=== PATIENT | female | born 1970 | race Caucasian/White ===

== ENCOUNTER 2023-04-22 11:00 | Outpatient (OUT) | payer MEDICARE, SELFPAY ==
[2023-04-22 12:15] LABS: Free T4 0.73 ng/dL (0.76-1.46)
[2023-04-22 12:17] LABS: Free T3 2.01 pg/mL (2.18-3.98); Thyroid Stimulating Hormone 0.702 uIU/mL (0.358-3.740)
== END 2023-04-22 11:01 ==
LOC: LAB 11:06
PROVIDERS: PCP Family Medicine
DX: E03.9 Hypothyroidism, unspecified (principal)
CPT/HCPCS: 36415; 84439; 84443; 84481

== ENCOUNTER 2023-09-09 13:43 | Outpatient (OUT) | payer MEDICARE, SELFPAY ==
--- NOTE | 2023-09-09 | MM_ITS ---
Patient: THEODORE LION Exam Date: 09/09/2023 : 1970 Gender:F Ordering : DR TU FLORES Admission #: [id number] Family : Non-Staff Physician Order #: [id number] CLICK HERE TO VIEW EXAM RADIOLOGY REPORT PROCEDURE: MM TOMOSYNTHESIS SCREENING BI COMPARISON: MG MAMM SCREEN 3D [place] CAD, 08/17/2021. MG MAMM SCREEN [place] W CAD, 08/16/2020. MG MAMM [place] SCRN W CAD DIG, 10/13/2007. MG MAMM SCREEN 3D [place] CAD, 08/20/2022. INDICATIONS: Screening Calculator Name NCI Breast Cancer Risk Assessment Tool 5 Year Breast Cancer Risk 0.70% Lifetime Breast Cancer Risk 5.90% Personal Breast Cancer No Personal Ovarian Cancer No Treatments None Family Cancers Son with hodgkins cancer at age 14; Father with throat cancer at age 72. LOCATION: [facility] BREAST COMPOSITION: Heterogeneously dense,which may obscure small masses. FINDINGS: DIAGNOSTIC CATEGORY 1--NEGATIVE. RIGHT BREAST: No significant suspicious finding. This exam includes additional mammographic views for implant evaluation and shows no visible implant abnormality. No significant change has occurred. LEFT BREAST: No significant suspicious finding. This exam includes additional mammographic views for implant evaluation and shows no visible implant abnormality. No significant change has occurred. RECOMMENDATIONS: ROUTINE MAMMOGRAM AND CLINICAL EVALUATION IN 12 MONTHS. PLEASE NOTE: A NORMAL MAMMOGRAM DOES NOT EXCLUDE THE POSSIBILITY OF BREAST CANCER. A CLINICALLY SUSPICIOUS PALPABLE LUMP SHOULD BE BIOPSIED. Dictated by: Jean Pierre Kirk M.D. on 09/11/2023 at 13:32 Approved by: Jean Pierre Kirk M.D. on 09/11/2023 at 13:36
== END 2023-09-09 13:44 | disposition home or self-care (01) ==
LOC: MAMMO 13:44
PROVIDERS: Visit Provider Specialist
DX: Z12.31 Encounter for screening mammogram for malignant neoplasm of breast (principal); Z80.7 Family history of other malignant neoplasms of lymphoid, hematopoietic and related tissues; Z80.8 Family history of malignant neoplasm of other organs or systems
CPT/HCPCS: 77063; 77067

== ENCOUNTER 2023-09-10 14:53 | Outpatient (OUT) | payer MEDICARE, SELFPAY ==
[2023-09-10 16:02] LABS: Free T4 0.89 ng/dL (0.76-1.46)
[2023-09-10 16:05] LABS: Thyroid Stimulating Hormone 0.502 uIU/mL (0.358-3.740)
== END 2023-09-10 14:54 | disposition home or self-care (01) ==
LOC: LAB 14:54
DX: E03.9 Hypothyroidism, unspecified (principal)
CPT/HCPCS: 36415; 84439; 84443; 84481

== ENCOUNTER 2024-09-11 13:36 | Outpatient (OUT) | payer OTHER, SELFPAY ==
--- NOTE | 2024-09-11 13:50 | MM_ITS ---
Patient Name: THEODORE LION MR#: [id number] : 1970 Exam Date: 09/11/2024 Ordering Doctor: DR TU FLORES RADIOLOGY REPORT PROCEDURE: MM TOMOSYNTHESIS SCREENING BI COMPARISON: MM TOMOSYNTHESIS SCREENING BI, 09/09/2023. MG MAMM SCREEN 3D [place] CAD, 08/20/2022. MG MAMM SCREEN 3D [place] CAD, 08/17/2021. MG MAMM [place] SCRN W CAD DIG, 10/13/2007. INDICATIONS: Screening Calculator Name NCI Breast Cancer Risk Assessment Tool 5 Year Breast Cancer Risk 0.70% Lifetime Breast Cancer Risk 5.80% Personal Breast Cancer No Personal Ovarian Cancer No Treatments None Family Cancers Son with hodgkins cancer at age 14; Father with throat cancer at age 72. LOCATION: [facility] BREAST COMPOSITION: The breasts are heterogeneously dense,which may obscure small masses. FINDINGS: DIAGNOSTIC CATEGORY 1--NEGATIVE. RIGHT BREAST: No significant suspicious finding. This exam includes additional mammographic views for implant evaluation and shows no visible implant abnormality. No significant change has occurred. LEFT BREAST: No significant suspicious finding. This exam includes additional mammographic views for implant evaluation and shows no visible implant abnormality. No significant change has occurred. RECOMMENDATIONS: ROUTINE MAMMOGRAM AND CLINICAL EVALUATION IN 12 MONTHS. PLEASE NOTE: A NORMAL MAMMOGRAM DOES NOT EXCLUDE THE POSSIBILITY OF BREAST CANCER. A CLINICALLY SUSPICIOUS PALPABLE LUMP SHOULD BE BIOPSIED. Dictated by: Jean Pierre Kirk M.D. on 09/13/2024 at 19:58 Approved by: Jean Pierre Kirk M.D. on 09/13/2024 at 20:00
== END 2024-09-11 13:37 | disposition home or self-care (01) ==
LOC: MAMMO 13:45
PROVIDERS: PCP Family Medicine; Visit Provider Specialist
DX: Z12.31 Encounter for screening mammogram for malignant neoplasm of breast (principal); Z80.7 Family history of other malignant neoplasms of lymphoid, hematopoietic and related tissues; Z80.8 Family history of malignant neoplasm of other organs or systems
CPT/HCPCS: 77063; 77067

== ENCOUNTER 2025-09-13 13:58 | Outpatient (OUT) | payer OTHER, SELFPAY ==
--- OUTSIDE RECORDS SUMMARY | 2022-10-26 10:10 | XMS_ITS | Continuity of Care Document ---
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 Name Role Phone Osei Mercedes DO Unavailable Unavailable Allergies, Adverse Reactions, Alerts Substance Reaction Status Criticality Penicillins Active No Information Medications Medication Instructions Dosage Effective Dates (start - stop) Status Comments gabapentin 100 mg capsule take 1 capsule by oral route 2 times every day 100 MG - Active ketorolac 60 mg/2 mL intramuscular solution inject 1 milliliter by intramuscular route every 6 hours as needed - Active Imitrex 100 mg tablet take 1 tablet by o ral route after onset of migraine; may repeat after 2 hours if headache returns,not to exceed 200mg in 24hrs 100 MG - Active Cytomel 5 mcg tablet take 1 tablet by or al route every day 5 MCG - Active Repatha Syringe 140 mg/mL subcutaneous syringe inject 1 milliliter by subcutaneous route every 2 weeks in the abdomen, thigh, or outer area of upper arm (rotate sites) 140 MG - Active Xywav 0.5 gram/mL oral solution take (9G) by oral route 2 times every day at bedtime and 2.5-4 hrs later while in bed - Active Zetia 10 mg tablet take 1 tablet by ora l route every day 10 MG - Active Synthroid 50 mcg tablet take 1 tablet by oral route every day 50 MCG - Active Estratest 1.5mg/2.5mg ORAL take 1.5 milligram by oral route every day - Active DDAVP 0.1 mg tablet take 1 tablet by ora l route 3 times every day 0.1 MG - Active Procedures Procedure Date OFFICE/OUTPATIENT VISIT, EST OFFICE/OUTPATIENT VISIT, EST OFFICE/OUTPATIENT VISIT, EST IMMUNIZATION ADMIN TDAP VACCINE >7 IM OFFICE/OUTPATIENT VISIT, EST No Charge OFFICE/OUTPATIENT VISIT, EST OFFICE/OUTPATIENT VISIT, EST OFFICE/OUTPATIENT VISIT, EST OFFICE/OUTPATIENT VISIT, EST OFFICE/OUTPATIENT VISIT, EST OFFICE/OUTPATIENT VISIT, EST OFFICE/OUTPATIENT VISIT, EST Covid Testing [facility] Oral Hygiene Instruction Comp Oral Eval New/estab Patient 2017 Oral Hygiene Instruction Advance Directives Directive Yes / No Effective Date File Name No Information Encounters Encounter Description Practice Location Reason(s) For Visit Diagnoses Date Provider Providers Copied on Encounter [facility], [address] [place] [address], [id number] , tel:[phone] [facility] No Information 2 Plank DO Osei. [address] [place] [address], [id number], [place]. tel:[phone] OFFICE/OUTPA TIENT VISIT, [facility], [address] [place] [address], [id number] , tel:[phone] [facility] F/U R Foot (chief complaint) Body mass index [BMI] 28.0-28.9, adultAcute pain of right footNeuropathy 2 Plank DO Osei. [address] [place] [address], [id number], [place]. tel:[phone] OFFICE/OUTPA TIENT VISIT, [facility], [address] [place] [address], [id number] , [place] tel:[phone] [facility] Problem Visit (chief complaint) Acute pain of right footBody mass index [BMI] 28.0-28.9, adult 2 Plank DO Osei. [address], [place], [id number], [place]. tel:[phone] OFFICE/OUTPA TIENT VISIT, [facility], [address], [place], [id number] , [place] tel:[phone] [facility] Medication refill (chief complaint) Body mass index [BMI] 28.0-28.9, adultChronic GERD 2 Plank DO Osei. [address], [place], [id number], [place]. tel:[phone] OFFICE/OUTPA TIENT VISIT, [facility], [address] [place] [address], [id number] , [place] tel:[phone] [facility] est care (chief complaint)t etanus shot (chief complaint) NeuropathyBody mass index [BMI] 29.0-29.9, adult 2 Plank DO Osei. [address], [place], [id number], [place]. tel:[phone] [facility], [address] [place] [address], [id number] , [place] tel:[phone] [facility] est care (chief complaint) Body mass index [BMI]30.0-30.9, adult 2 Kip Ponce. [address] [place], [address], [place]. tel:[phone] OFFICE/OUTPA TIENT VISIT, [facility], [address], [place], [id number] , [place] tel:[phone] [facility] Med Refills (chief complaint) Body mass index [BMI] 28.0-28.9, adultAddison disease 1 Pavlock DO Max. [address], [place], [id number], [place]. tel:[phone] OFFICE/OUTPA TIENT VISIT, [facility], [address] [place] [address], [id number] , [place] tel: [phone] [facility] med refill (chief complaint) Rajendra diseaseMuscle spasmBody mass index [BMI] 28.0-28.9, adult 1 Pavlock DO Max. [address], [place], [id number], [place]. tel:[phone] OFFICE/OUTPA TIENT VISIT, [facility], [address], [place], [id number] , [place] tel: [phone] [facility] Med F/U (chief complaint) Rajendra diseaseLow back pain associated with a spinal disorder other than radiculopathy or spinal stenosisBody mass index [BMI] 29.0-29.9, adult 0 Pavlock DO Max. [address] [place] [address], [id number], [place]. tel:[phone] OFFICE/OUTPA TIENT VISIT, [facility], [address], [place], [id number] , [place] tel: [phone] [facility] Med F/U (chief complaint) Body mass index [BMI] 29.0-29.9, adultNeuropathy Norton diseaseColitis Sep- 0 Pavlock DO Max. [address], [place], [id number], [place]. tel:[phone] OFFICE/OUTPA TIENT VISIT, [facility], [address], [place], [id number] , [place] tel: [phone] [facility] Med F/U (chief complaint) Body mass index [BMI] 29.0-29.9, adultNeuropathy Aug- 0 Pavlock DO Max. [address] [place] [address], [id number], [place]. tel:[phone] OFFICE/OUTPA TIENT VISIT, [facility], [address] [place] [address], [id number] , [place] tel: [phone] [facility] Med Refills (chief complaint) Body mass index (BMI) 28.0-28.9, adultAddison diseaseNeuropat hy Jul-0 0 Pavlock DO Max. [address], [place], [id number], [place]. tel:[phone] OFFICE/OUTPA TIENT VISIT, EST [facility], [address], [place], [id number] , [place] tel: [phone] [facility] annual exam (chief complaint)N europathy (chief complaint) Body mass index (BMI) 26.0-26.9, adultNeuropathy Hypothyroidism, unspecified type 0 Pavlock DO Max. [address], [place], [id number], [place]. tel:[phone] [facility], [address], [place], [id number] , [place] tel: [phone] COVID [facility] Encounter for screening for other viral diseases 0 Visci DO Bravo. [address], [place], [id number], [place]. tel:[phone] [facility], [address], [place], [id number] , [place] tel:[phone] [facility] Chronic hypotension 0 Pavlock DO Max. [address], [place], [id number], [place]. tel:[phone] [facility], [address], [place], [id number] , [place] tel:[phone] [facility] f/u colitis (chief complaint) Body mass index (BMI) 27.0-27.9, adultColitisAdd artemio disease Apr-3 0-201 9 Pavlock DO Max. [address], [place], [id number], [place]. tel:[phone] [facility], [address], [place], [id number] , [place] tel:[phone] [facility] est care (chief complaint) Post hysterectomy menopauseAcquir ed absence of both cervix and uterusChronic hypotensionHypo thyroidism, unspecified typeMigraine aura without headacheAddison diseaseBody mass index (BMI) 27.0-27.9, adultLow back pain associated with a spinal disorder other than radiculopathy or spinal stenosis 9 [facility] [place]. [address], [place], [id number], [place]. tel:[phone] [facility], [address], [place], [id number] , [place] tel:[phone] Dental Clinic Encounter for screening for dental disorders 8 Kevin Kleinasosbaldoochdennise . [address] [place] [address], [id number], [place]. tel:[phone] Family History Family Member Type Diagnosis Age At Onset Sister Problem (finding) Allergies Sister Problem (finding) migraine Mother Problem (finding) Obesity Father Problem (finding) osteoarthritis Father Problem (finding) hypertension Mother Problem (finding) Irritable bowel syndrom e Sister Problem (finding) Irritable bowel syndrom e Sister Problem (finding) Alive and well Mother Problem (finding) osteoarthritis Mother Problem (finding) Diabetes mellitus Mother Problem (finding) Allergies Sister Problem (finding) hypercholesterolemia Father Problem (finding) alcoholism Mother Problem (finding) hypercholesterolemia Father Problem (finding) Cardiovascular disease Mother Problem (finding) stroke Brother Problem (finding) Allergies Mother Problem (finding) Alive and well Brother Problem (finding) Irritable bowel syndrom e Brother Problem (finding) asthma Immunizations Vaccine Date Status Comments Tdap (Boostrix) administered Source: New Immunization Record Payers Payer name Insurance type Covered constitution party ID Authoriza tion(s) [place] [employer] Ad[employer]age MAN[employer] [id number] [place] [employer] [id number] Social History Type Description Quantity Date Captured Comments Alcohol Use Details Unknown Caffeine Use Details Unknown Tobacco Use Status No Information Smoking Status No Information Sex Female Sexual Orientation Straight or heterosexual Nov Gender Identity Female Chief Complaint And Reason For Visit No Information Reason For Referral Reason For Referral No Information Plan Of Treatment Date Type Action Status Goal PRAPARE ASSESSMENT. Due on D due Goal Depression screening. Due on due Goal Influenza vaccine. Due on De due Goal Lipid panel. Due on due Goal Colonoscopy. Due on due Goal Zoster vaccine (). Due on due Goal FOBT. Due on due Goal Tdap due Goal Mammogram. Due on due Goal Zoster vaccine (). Due on due Goal Lipid panel. Due on due Goal Colonoscopy. Due on due Goal Influenza vaccine. Due on Oc due Goal Tdap due Goal Mammogram. Due on due Goal FOBT. Due on due Goal PRAPARE ASSESSMENT. Due on O due Goal Depression screening. Due on due Goal Dietary management education , guidance, and counseling completed Goal Mammogram. Due on due Goal PRAPARE ASSESSMENT. Due on O due Goal Colonoscopy. Due on due Goal FOBT. Due on due Goal Influenza vaccine. Due on Oc due Goal Lipid panel. Due on due Goal Zoster vaccine (1st). Due on due Goal Depression screening. Due on due Goal Tdap due Goal Lifestyle education regardin g diet completed Goal Depression screening. Due on due Goal Tdap. Due on due Goal Influenza vaccine. Due on Ap due Goal PRAPARE ASSESSMENT. Due on A due Goal Lipid panel. Due on due Goal Influenza vaccine. Due on Au due Goal Lipid panel. Due on due Goal Zoster vaccine (). Due on due Goal Colonoscopy. Due on due Goal PRAPARE ASSESSMENT. Due on A due Goal Mammogram. Due on due Goal Tdap due Goal FOBT. Due on due Goal Depression screening. Due on due Goal Dietary management education , guidance, and counseling completed Goal Weight-reducing diet educati on completed Goal Weight-reducing diet educati on completed Goal Dietary management education , guidance, and counseling completed Goal Dietary management education , guidance, and counseling completed Goal Dietary management education , guidance, and counseling completed Goal Dietary management education , guidance, and counseling completed Goal Dietary management education , guidance, and counseling completed Goal Dietary management education , guidance, and counseling completed Goal Dietary management education , guidance, and counseling completed Goal Dietary management education , guidance, and counseling completed Goal Dietary management education , guidance, and counseling completed Referral Ordered: Podiatry (related to Acute pain of right foot) [id number] Ordered: Podiatry (related to Acute pain of right foot) [id number] Ordered: Referrals: Podiatry. Evaluate and treat [id number] Ordered: X-Ray Exam Of Foot Complete Minimum Of 3 Views ordered History Of Present Illness Encounter Date Complaint History Of Prese nt Illness F/U R Foot Pt here to f/u a bout R foot; had X-rays. States still having pain, can't bend foot at all. Been taking IBU and Tylenol for the pain. Resting the foot is only thing that alleviates the pain. No other issues/concerns at this time. //C Whiteriver, RNpain no better. rather excruciating pain w/ hyperflexion.also discomfort 2nd and third metatarsal ray r foot. xray is unremarkable. tp Problem Visit Right foot, feel s like she hyper-extended ankle. Hit from side by recliner. About 5 days ago, says bruise is healing. States pain is getting worse. //Roseann Muro Medication refill Presents for r efill for omeprazole. States she gets refills on her other medications from her specialist. Qian Stafford RN est care Patient presents to establish care. Was a Pavlock patient. Needs refills on lyrica. Yousif Florentino RN tetanus shot Patient states s he was working on something recently and the person she was working with was told to get a tetanus shot today. Patient Would like tetanus shot today.Yousif Florentino RN est care Patient presents for med refills and 6 month check up. States toradol and lyrica need refilled.Yousif Corneliusent was originally scheduled to see Dr Mercedes to establish care. Dr Mercedes is off today and patient moved to this providers schedule. Upon arrival, patient was notified that she was not seeing Dr Mercedes; she was surprised as she had contacted her insurance to see that he would be covered. In to talk to patient about medication. Previously seen by provider who no longer works here. Today patient is specifically requesting refills on medication regimen including lyrica for her neuropathy and fibromyalgia; and taking toradol injections for migraines as previously prescribed by Dr Mayfield. Noted that she is also on tizanidine 4mg QID and Vistaril 25mg TID PRN. Discussed potentially changing some of her medications around to get her off the injectable toradol and controlled substance lyrica. Suggested other medications to assist with pain relief. Patient became very upset, asking why would changes be made that seems to be working for her. Suggested referral to pain management who could assume care of pain control. States she did that in the past and is not interested in going back to them; that it did not help her. Explained to patient that how previous provider practiced is not how this provider practices and she desires to establish care with Dr Mercedes; as that is who she thought she was seeing today. Apologized to her for the inconvenience. Appt made with Dr Mercedes per request. Spoke to supervisor rod placing; states co-pay applied today can be moved to appt next week; patient is not to be billed for this appt. Stefan, SHOE COVERER Med Refills Pt here today fo r medication refillOARRS completed, TGrodi LPNPt states she is getting back to her normal she is not as bad as she was but not all the way back yet and has appointment with neurology coming up med refill Patient states t hat she has had increased nausea and migraines. Pt states that Fibromyalgia has been flaring up recently. Pt states that she needs medication refills. No other complaints. Kavon RNPT states that she has been having a lot of muscle cramping, that comes and goes, pt states she has not had anything this bad in along time and we she had her labs checked her endocrine states that they we were good but she is not sure what all was checked and that was 4 months ago. Med F/U Pt here today fo r a medication follow up. Pt states she wants to stay at this dose. Pt states she doesnt want to increase cause she doesnt want to get too tired. OARRS completed, last filled Xyrem from Dr. 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 Pt states the medication is helping but not sure she tells a difference between the 75mg dose and the 50mg dose. Pt states she has been having issues with anxiety lately so she cant really tell if its helping or notOARRS completed, [facility] [place] [facility] & Adipex from Dr. Ela Garcia 09/01, Lyrica 08/23 & Estratest 07/28 from Ela Garcia. TGrodi LPNPt states she is having a lot of symptoms right now because the stress has got her adneral problems out of control some, Pt has been not doing well for the past 2 days, she is hoping that it is only a short term thing because she has been so stable for the last 2 years Med F/U Pt here today fo r medication follow up. Pt states the dose is working and she is tolerating the medication but states she thinks the medication needs increased. OARRS completed, last filled Lyrica 07/26 & Estratest 07/28 from Ela GarciaTGelvis LAWN SERVICE WORKER Pt states doing well not having any new problems ,above was reviewed and agreed with [facility] Med Refills Pt here today fo r medication refills. Pt states she felt the Gabapentin made her headaches worse, pt states she has been on the Lyrica in the past and that helped her. OARRS completed, last filled Gabapentin 06/30TGrodi LPNPt states that she was doing well with this on the prednisone but as having side effects now looking for something different and her rash is itchy that she can not get control of right now Neuropathy Onset was gradua l. Severity level is mild. Location of numbness is bilateral arm. The problem occurs intermittently. Gait is characterized as normal. No aggravating factors. There are no relieving factors. Associated symptoms include headache, paresthesia and tingling. Pertinent negatives include agitation, ataxia, bladder incontinence, bowel dysfunction, chorea, confusion, dysarthria, dysphagia, falling, fever, hallucinations, tremors and vertigo. annual exam Pt here today fo r annual exam. Pt states she just needs medication refills. Pt states her dermatitis recommends her to be on Gabapentin for brachialis pruritus. Pt wants to talk about that. No other issues or concernsTGelvis DUQUE f/u colitis Pt here today to follow up on her colitis. Pt states it is still aggravating her. She said it did improve for a little bit while on antibiotics, but now she is back to where she was originally. 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 No other issues/concerns. OARRS competed, last filled Estratest 12/[address] Ela Garcia. TGrodi LPNpt states she feels like she just needs a little more antibiotics est care pt here today to establish care and medication refills. Pt was previous pt of Dr. Mayfield in his [place] office. Pt just filled medication today of estrogen. Pt does not have anything specific today to see him, just here to see him and get established here. Pt wants lab work done. Pt states she gets IM Phenergan & Toradol and wants a prescription for syringes for these since a prescription is now required. OARRS completed, last filled estrogen 09/12 for 90 days from in [facility] & Percocet 5 08/19 from [facility] states she is doing better than she has done in a long time Functional Status Date Functional Assessmen t No Information Instructions Date Instruction Additional Infor al Giving encouragement to exercise Related to Body mass index [BMI] 28.0-28.9, adult Dietary management e ducation, guidance, and counseling Related to Body mass index [BMI] 28.0-28.9, adult Giving encouragement to exercise Related to Body mass index [BMI] 28.0-28.9, adult Lifestyle education regarding di et Related to Body mass index [BMI] 28.0-28.9, adult Dietary management e ducation, guidance, and counseling Related to Body mass index [BMI] 28.0-28.9, adult Giving encouragement to exercise Related to Body mass index [BMI] 28.0-28.9, adult Giving encouragement to exercise Related to Body mass index [BMI] 29.0-29.9, adult Weight-reducing diet education R elated to Body mass index [BMI] 29.0-29.9, adult Weight-reducing diet education R elated to Body mass index [BMI] 30.0-30.9, adult Giving encouragement to exercise Related to Body mass index [BMI] 30.0-30.9, adult Giving encouragement to exercise Related to Body mass index [BMI] 28.0-28.9, adult Dietary management e ducation, guidance, and counseling Related to Body mass index [BMI] 28.0-28.9, adult Giving encouragement to exercise Related to Body mass index [BMI] 28.0-28.9, adult Dietary management e ducation, guidance, and counseling Related to Body mass index [BMI] 28.0-28.9, adult Dietary management e ducation, guidance, and counseling Related to Body mass index [BMI] 29.0-29.9, adult Giving encouragement to exercise Related to Body mass index [BMI] 29.0-29.9, adult Dietary management e ducation, guidance, and counseling Related to Body mass index [BMI] 29.0-29.9, adult Giving encouragement to exercise Related to Body mass index [BMI] 29.0-29.9, adult Dietary management e ducation, guidance, and counseling Related to Body mass index [BMI] 29.0-29.9, adult Giving encouragement to exercise Related to Body mass index [BMI] 29.0-29.9, adult Dietary management e ducation, guidance, and counseling Related to Body mass index (BMI) 28.0-28.9, adult Giving encouragement to exercise Related to Body mass index (BMI) 28.0-28.9, adult Dietary management e ducation, guidance, and counseling Related to Body mass index (BMI) 26.0-26.9, adult Giving encouragement to exercise Related to Body mass index (BMI) 26.0-26.9, adult Giving encouragement to exercise Related to Body mass index (BMI) 27.0-27.9, adult Dietary management e ducation, guidance, and counseling Related to Body mass index (BMI) 27.0-27.9, adult Giving encouragement to exercise Related to Body mass index (BMI) 27.0-27.9, adult Dietary management e ducation, guidance, and counseling Related to Body mass index (BMI) 27.0-27.9, adult Assessments Type Assessment Date No Information Patient Care Teams Name Effective Dates (start - stop) Status Members No Information
--- OUTSIDE RECORDS SUMMARY | 2025-08-30 14:40 | XMS_ITS | Encounter Summary ---
Author Organization [facility] tem Address [id number] [address] [place] [address] Care Team Providers Care Toy Stuffer Name Role Phone Alondra Patel ALLIANCE CONSULTANT-ORCHESTRA DIRECTOR Primary Care Provider Reason for Visit * ReasonCommentsFollow-up Encounter Details DateTypeDepartmentCare Team (Latest Contact Info)Ifinmxnkead86/13/2025 2:40 PM EDTTelemedicine [facility] [address] [place] [address] [place] [address] Faith Villavicencio, ALLIANCE CONSULTANT-ORCHESTRA DIRECTOR [address] [facility] B, [facility] [place] [address] Fibromyalgia (Primary Dx); Trigeminal neuralgia Social History Tobacco UseTypesPacks/DayYears UsedDateSmoking Tobacco: FtlrxdRvewnzjwaf264 02/02/1979 - 02/02/1995Alcohol UseStandard Drinks/WeekCommentsNo0 (1 standard drink = 0.6 oz pure alcohol)PHQ-2AnswerDate RecordedTotal Czanl698 ChildcareAnswerDate VzyezdwiXtdworaurOdzksgd57/12/2019EmploymentAnswerDate YxtmhrimLsotpacaowIppdkls92/12/2019Hunger ScreeningAnswerDate RecordedWithin the past 12 months we worried whether our food would run out before we got money to buy more.Never True08/30/2025Within the past 12 months the food we bought just didn't last and we didn't have money to get more.Never True08/30/2025Purpose - LifeAnswerDate RecordedPurpose and direction in emloGglataq80/11/2021 CommentsNoSex and Gender InformationValueDate RecordedSex Assigned at BirthNot on fileLegal JxrMlmiob62/06/2015 12:00 PM EDTGender IdentityNot on fileSexual OrientationNot on filedocumented as of this encounter Patient Instructions * Attachments The following attachments cannot be sent through Care Everywhere. * Fibromyalgia (Mongolian) documented in this encounter Progress Notes * Faith Villavicencio, ALLIANCE CONSULTANT-ORCHESTRA DIRECTOR - 08/30/2025 2:40 PM EDT Video Visit via Real-time Synchronous Audiovisual Provider Location: [facility] [address] [place] [phone] Patient Location: Patient's home Video Visit Consent Statement: I discussed risks, benefits, and alternatives of a real-time synchronous audiovisual consultation with the patient (and any accompanying persons) including the risks that the patient's personal health details and medical records will be discussed over real-time, synchronous, interactive video/audio/telecommunication technology, the visit will not be recorded withoutthe express consent of both the provider and the patient, and that there are some limitations compared to nztz-am-rxfy evaluations. The patient consented to the presence of additional virtual and/or in-person participants. We elected to proceed. Subjective Patient ID: Pao Medina is a 55 y.o. female. CC: follow up fibromyalgia Follow-up Associated symptoms include joint swelling, myalgias and weakness. Pao presents through video visit for 3 month follow up for Lyrica use. She relates has been on and off this for 25 years. She also takes xywav. States has used both of these for many many years and has never had an interaction. States the Lyrica works wonders for her fibromyalgia. Otherwise would have constant joint pain; is controlled with Lyrica. Relates she will probably get the flu vaccineat her local pharmacy. Also has yearly mammograms done at [facility]. Is due this month. Order was placed in May. States it is not scheduled as of this time. The following portions of the patient's history were reviewed and updated as appropriate: allergies, current medications, past family history, past medical history, past social history, past surgicalhistory, problem list, and medication reconciliation was completed including current medication andpost discharge medication. Review of Systems Constitutional: Negative. HENT: Negative. Eyes: Negative. Respiratory: Negative. Cardiovascular: Negative. Gastrointestinal: Negative. Musculoskeletal: Positive for joint swelling and myalgias. Skin: Negative. Neurological: Positive for weakness. Hematological: Negative. Psychiatric/Behavioral: Negative. Objective Physical Exam Constitutional: Appearance: Normal appearance. HENT: Head: Normocephalic and atraumatic. Pulmonary: Effort: Pulmonary effort is normal. Musculoskeletal: Cervical back: Normal range of motion. Neurological: Mental Status: She is alert and oriented to person, place, and time. Psychiatric: Behavior: Behavior normal. Assessment/Plan Lyrica refilled for 3 month supply OARRS reviewed, no abnormal behavior Instructed to complete mammogram, will copy Previous mamm order,and fax to [facility] Follow up in 3 months for controlled substance Klaudiakory Cedeno was seen today for follow-up. Diagnoses and all orders for this visit: Fibromyalgia - pregabalin (LYRICA) 50 mg capsule; Take 2 capsules (100 mg total) by mouth 3 (three) times a day. Trigeminal neuralgia - pregabalin (LYRICA) 50 mg capsule; Take 2 capsules (100 mg total) by mouth 3 (three) times a day. LACY Mcginnis 08/30/25 1528 documented in this encounter Plan of Treatment DateTypeDepartmentCare Team (Latest Contact Info)Hjhgwgvbsng09/07/2026 10:40 AM ESTTelemedicine [facility] [address] [place] [phone] Alondra Patel APRN-CNP [address] [place] [phone] documented as of this encounter Visit Diagnoses Diagnosis Fibromyalgia- Primary Unspecified myalgia and myositis Trigeminal neuralgia documented in this encounter Additional Health Concerns AssessmentNoted TimePHQ-9 Depression Total Score: 010/ 2:34 PM EDT documented as of this encounter Care Teams Team MemberRelationshipSpecialtyStart DateEnd Date Alondra Patel APRN-LAURI [address] [place] [address], [place] [phone] PCP - GeneralNurse Kmxxzdoehddr03/22/24documented as of this encounter
--- OUTSIDE RECORDS SUMMARY | 2025-09-13 14:01 | XMS_ITS | Clinical Summary ---
Author Organization [facility] Address [address] [place] [address] Care Team Providers Care Dumbwaiter Operator Name Role Phone David Mayfield MD Primary Care Provider [phone] Allergies Active AllergyReactionsCriticalityNoted DateCommentsAzithromycinRash-MildLow 02/02/2017ClarithromycinGI XkndpkydLgg09/20/4184MqkymjfhduZjmvjTuc21/20/2017 Severe abdominal pain RnpqatpmkzjaYhers28/26/2011 Had 4+ edema in legs and arms the day after taking a new prescription. Meperidine (Pf)Nausea And Ldsqvwju43/18/2017Midazolam HclNausea And Vomiting 05/31/2010MorphineNausea And BnamoinuSys05/02/2017NaproxenGI Uiozjumc71/18/2011 PenicillinsHives,Rash-DjvkDzh6202/02/2017Sutures [Other]Hives,Itching,Rash-Mild, SchywBthu90/12/2013 Specifically, cat gut sutures Received name: Sutures VancomycinGI Mlannbzy20/21/2016 Medications MedicationSigDispense QuantityRefillsLast FilledStart DateEnd DateStatus levothyroxine (SYNTHROID) 50 mcg tablet Take 1 tablet by mouth once daily, 30 min prior to meal.07/24/2017Active hydrocortisone (CORTEF) 20 mg tablet Take 20 mg by mouth two times daily. 20 mg in the AM 10 mg in the PMActive esterified estrogens-methyltestosterone 1.25-2.5 mg tablet Take 1 tablet by mouth once daily.Active tiZANidine (ZANAFLEX) 4 mg tablet Take 4 mg by mouth as needed.Active SUMAtriptan (IMITREX) 100 mg tablet Take 100 mg by mouth at onset of migraine.Active Active Problems ProblemNoted DateDiagnosed DateSecondary adrenal ddlijexvmmahv54/24/2018 Family History Medical HistoryRelationNameCommentsAsthmaBrotherAsthmaDaughterCancerFatherHeart diseaseFatherhypertensionAsthmaMotherDiabetesMotherStrokeMotherAsthmaSonCancer SonRelationNameStatusCommentsBrotherDeceasedDaughterAliveFatherDeceasedMother AliveSisterAliveSonAlive Social History Tobacco UseTypesPacks/DayYears UsedDateSmoking Tobacco: JsalrbHudvagjosa1598294 - 1994Smokeless Tobacco: NeverAlcohol UseStandard Drinks/WeekCommentsNo0 (1 standard drink = 0.6 oz pure alcohol)CommentsUnknownSex and Gender InformationValueDate RecordedSex Assigned at BirthNot on fileLegal SexFemale 04/08/2018 4:04 PM EDTGender IdentityNot on fileSexual OrientationNot on file Last Filed Vital Signs Vital SignReadingTime TakenCommentsBlood Xbgragdk256/7007 8:12 AM EDT Plnqz938006/11/2018 8:12 AM DKUHjpmepmqwux86.4 ??C (97.5 ??F)06/11/2018 8:12 AM EDTRespiratory Oywv2273 8:12 AM EDTOxygen Bzdpcehhcq84%06/11/2018 8:12 AM EDTInhaled Oxygen Concentration--Zdastu52.5 kg (140 lb)06/11/2018 8:12 AM EDT Ggstug301.5 cm (5' 2 )06/11/2018 8:12 AM EDTBody Mass Index25.61006/11/2018 8:12 AM EDT Plan of Treatment Health MaintenanceDue DateLast DoneCommentsCologuard (average risk only) 1970 5016Iaadvjksmzn1972Colorectal Cancer Rdvcycthb1972FIT (average risk only)1972Hepatitis C Lflfwdacl1972Alternating Mammogram/MRI 1984DTaP,Tdap,and Td Vaccines (1 - Tdap)1991Hepatitis B Vaccine ages 19 years and older (1 of 3 - 19+ 3-dose series)1991Breast Cancer Blnibcvbm81/31/7621Yqlngjxse93/31/1992Cervical Cancer Screening: Cytology 1993Pneumococcal Vaccines 50years + (1 of 1 - PCV)2022Zoster Recombinant Vaccines (1 of 2)2022OVID-19 Vaccine (1 - 2024- season) 2025Influenza Vaccine (#1)2025Respiratory Syncytial Virus (RSV) or ages 60 years and older (1 - 1-dose 75+ series)2047 Respiratory Syncytial Virus (RSV) ages 0 thru 19 monthsAged OutNo longer eligible based on patient's age to complete this topic Insurance Care Teams Team MemberRelationshipSpecialtyStart DateEnd Date David Mayfield MD [address] [place] [phone] PCP - GeneralFamily Medicine06/09/18
--- OUTSIDE RECORDS SUMMARY | 2025-09-13 14:01 | XMS_ITS | Clinical Summary ---
Author Organization [facility] Address [address] [place] [address] Phone Care Team Providers Care Storage Brine Worker Name Role Phone Rodger Ortiz DO Primary Care Provider [phone] Social History Tobacco UseTypesPacks/DayYears UsedDateSmoking Tobacco: Never Assessed CommentsUnknownSex and Gender InformationValueDate RecordedSex Assigned at Not on fileLegal VckDmzdlr84/26/2022 3:11 PM ESTGender IdentityNot on fileSexual OrientationNot on file Plan of Treatment Health MaintenanceDue DateLast DoneCommentsCT Rntbpapojqki1972Colonoscopy 1972Colorectal Cancer Uwgqqsfbz1972FIT-DNA (Cologuard)1972FIT 1972HIV Qlxrllawa1972Lipid Panel1972 5767Tepfoyipmigaq1972 Welcome to Medicare Visit1972MMR Vaccines (1 of 1 - Standard series) 1973Hepatitis C Pwljauraa36/31/1990Hepatitis B Vaccines (1 of 3 - 19+ 3- dose series)1991Cervical Cancer Bbrmkmpym90/31/1993HPV/Jfwpko1804/17/1993Pap Smear1993DTaP/Tdap/Td Vaccines (1 - Tdap)04/17/19940030Cpqrpksvo04/31/2012 Pneumococcal Vaccine (1 of 1 - PCV)2022Zoster Vaccines (1 of 2)2022 Influenza Vaccine (#1)5COVID-19 Vaccine (1 - 2024- season)2025 HIB VaccinesAged OutNo longer eligible based on patient's age to complete this topicHPV VaccinesAged OutNo longer eligible based on patient's age to complete this topicHepatitis A VaccinesAged OutNo longer eligible based on patient's age to complete this topicIPV VaccinesAged OutNo longer eligible based on patient's age to complete this topicMeningococcal VaccineAged OutNo longer eligible based on patient's age to complete this topicRotavirus VaccinesAged OutNo longer eligible based on patient's age to complete this topic Insurance Care Teams Team MemberRelationshipSpecialtyStart DateEnd Date Rodger Ortiz DO [facility]05/05/15
--- OUTSIDE RECORDS SUMMARY | 2025-09-13 14:02 | XMS_ITS | Clinical Summary ---
Author Organization L[employer] tem Address [id number] [address] [place] [address] Care Team Providers Care Generator Mechanic Name Role Phone PatelKeshia garglynn GOODMAN-ALLOCATION ANALYST Primary Care Provider Allergies Active AllergyReactionsCriticalityNoted DateCommentsDuloxetineSwellingLow 02/04/2017 Severe abdominal pain JbgnjwkyxhneUuibcyta89/18/2017 Had 4+ edema in legs and arms the day after taking a new prescription. Meperidine (Pf)Cttcrsmh69/18/2017Midazolam GjfGnxzvshn75/18/2017MorphineVomiting 02/02/20172157SsmjscwfTzqdErq00/18/2017OtherHives,Itching,Rash,SwellingHigh 02/02/2017 Specifically, cat gut sutures PenicillinsHives,BiafFcr6202/02/20178608Dyrrcjo-Hpl-Nhw Reductase InhibitorsHeadache 10/09/2024VancomycinGI Ucdfivseodt49/18/2017 Medications MedicationSigDispense QuantityRefillsLast FilledStart DateEnd DateStatus estrogens-methylTESTOSTERone (EEMT,COVARYX) 1.25-2.5 mg per tablet Indications:vasomotor symptoms associated with menopauseTake 1 tablet by mouth in the morning. Indications: change of life signs.Active SUMAtriptan (IMITREX) 100 mg tablet Take 1 tablet (100 mg total) by mouth as needed for migraine (may repeat x1 as one hr). May repeat in 2 hours if unresolved. Do not exceed 200 mg in 24 hours. Active levothyroxine (SYNTHROID, LEVOTHROID) 50 MCG tablet Take 1 tablet (50 mcg total) by mouth in the morning.Active evolocumab (REPATHA SYRINGE) 140 mg/mL syringe Inject 140 mg under the skin every 14 (fourteen) days.Active ezetimibe (ZETIA) 10 mg tablet Take 1 tablet (10 mg total) by mouth in the morning.Active carBAMazepine XR (TEGretol XR) 200 mg 12 hr tablet Take 2 tablets (400 mg total) by mouth in the morning and 2 tablets (400 mg total) at noon and 2 tablets (400 mg total) before bedtime.Active clotrimazole-betamethasone (LOTRISONE) cream Apply 1 Application topically as needed.08/15/2024ctive dexAMETHasone (DECADRON) 4 mg tablet Take 1 tablet (4 mg total) by mouth in the morning and 1 tablet (4 mg total) at noon and 1 tablet (4 mg total) in the evening. Take with meals.08/13/2024ctive dexAMETHasone (DECADRON) 4 mg/mL injection 1 mL (4 mg total) every 6 (six) hours.11/20/2023ctive ketorolac (TORADOL) 60 mg/2 mL solution Inject 2 mL (60 mg total) into the appropriate muscle once.04/06/2024ctive lisdexamfetamine (VYVANSE) 70 mg capsule Take 1 capsule (70 mg total) by mouth in the morning.07/09/2024ctive XYWAV 0.5 gram/mL solution Take 4.5 mL by mouth nightly. 4.5 grams at bedtime repeat In 9trpap0510/05/2024 Active liothyronine (CYTOMEL) 5 MCG tablet Take 1 tablet (5 mcg total) by mouth in the morning and 1 tablet (5 mcg total) at noon.Active eletriptan (RELPAX) 40 mg tablet Indications:Migraine with aura and without status migrainosus, not intractable Take 1 tablet (40 mg total) by mouth once as needed for migraine. May repeat in 2 hours if unresolved. Do not exceed 80 mg in 24 hours. 9 tablet ctive naltrexone 1.5 mg capsule Take 2 mg by mouth in the morning.Active carBAMazepine (CARBATROL) 200 mg 12 hr capsule Take 1 capsule (200 mg total) by mouth 2 (two) times a day as needed.Active lczdaujlhsvbiaq-lcbzcwxdp-BK 2-30-10 mg/5 mL syrup Take 5 mL by mouth 4 (four) times a day as needed for allergies, congestion or cough. 120 mL 5Active hydroxychloroquine (PLAQUENIL) 200 mg tablet Take 1 tablet (200 mg total) by mouth in the morning.5Active tiZANidine (ZANAFLEX) 4 mg capsule Indications:FibromyalgiaTake 1 capsule (4 mg total) by mouth 2 (two) times a day as needed for muscle spasms. 60 capsule 5Active ketorolac (TORADOL) 10 mg tablet Indications:FibromyalgiaTake 1 tablet (10 mg total) by mouth every 6 (six) hours as needed for pain. 20 tablet 5Active omeprazole (PriLOSEC) 40 mg capsule Take 1 capsule (40 mg total) by mouth every morning before breakfast. 30 capsule 505Active ondansetron (ZOFRAN) 8 mg tablet Indications:Nausea and vomiting, unspecified vomiting type,Migraine with aura and without status migrainosus, not intractableTake 1 tablet (8 mg total) by mouth every 8 (eight) hours as needed for nausea or vomiting. 20 tablet 5Active promethazine (PHENERGAN) 25 mg tablet Indications:Nausea and vomiting, unspecified vomiting type,Migraine with aura and without status migrainosus, not intractableTake 0.5 tablets (12.5 mg total) by mouth every 8 (eight) hours as needed for nausea or vomiting. Oral or injectable 30 tablet 5Active baclofen (LIORESAL) 10 mg tablet Indications:Fibromyalgia,Small fiber neuropathy,Muscle spasmTAKE 1 TABLET BY MOUTH 3 TIMES A DAY 90 tablet 5Active pregabalin (LYRICA) 50 mg capsule Indications:Fibromyalgia,Trigeminal neuralgiaTake 2 capsules (100 mg total) by mouth 3 (three) times a day. 540 capsule 5Active desmopressin (DDAVP) 0.1 mg tablet Take 2 tablets (200 mcg total) by mouth in the morning and 2 tablets (200 mcg total) before bedtime./02/2025Expired tacrolimus (PROTOPIC) 0.1 % ointment Apply 1 Application topically in the morning and 1 Application before bedtime. /08/2025Expired pregabalin (LYRICA) 50 mg capsule Indications:Fibromyalgia,Trigeminal neuralgiaTAKE 2 CAPSULES BY MOUTH 3 TIMES A DAY 540 capsule Discontinued(Reorder) Active Problems ProblemNoted DateDiagnosed DateSmall fiber mivwhwbpsm02/27/2025Migraine with aura and without status migrainosus, not hjypozkknne39/28/2024iverticulitis 10/15/2024Trigeminal kfaprthxs75/28/4872Qiianynwkhbp87/28/2024Muscle spasm 10/15/2024Supraventricular dbatleorbrc88/22/2024Migraine without aura and without status migrainosus, not dwnwytznclj12/22/2024hronic kyegjkjb33/20/[address] scan, colon02/04/2017Generalized abdominal pain02/03/2017Colitis 02/02/2017Primary adrenocortical baftundptxrka15/18/7026Dtnzewhigriuqg87/18/2017 Encounters DateTypeDepartmentCare YsfsLvvplboxylw03/15/2025Telephone [facility] [address] [place] [phone] Joan Bellamy CMA 08/30/2025 2:40 PM EDTTelemedicine [facility] [address] [place], [place] [phone] Faith Villavicencio APRN-CNP Fibromyalgia (Primary Dx); Trigeminal pkbnyhfsj64/13/0581Cbwpho88/21/2025Telephone [facility] [address] [place] [phone] Martha Main, EDGAR Med Anljukrkjb60/18/2025[facility] [address] [place] [phone] Alondra Patel APRN-CNP Fibromyalgia; Small fiber neuropathy; Muscle spasm07/29/2025Refill [facility] [address] [place] [phone] Alondra Patel APRN-CNP Fibromyalgia; Trigeminal umvtttmkl92/22/2025Results Follow-Up [facility] [address] [place] [phone] Nolvia Butler CNA Ultrasound abdomen qvsymlyj70/22/2025Results Follow-Up [facility] [address] [place] [phone] low dose lung screening (Annual)07/06/2025Orders [facility] [address] [place] [phone] Alondra Patel APRN-LAURI Lung nodules (Primary Dx)07/02/2025 3:00 PM EDT - 07/02/2025 11:59 PM EDT Hospital Encounter [facility] - Ultrasound [address] [place] [address] Generalized abdominal pain; Nausea and vomiting, unspecified vomiting type; Right upper quadrant pain Discharge Disposition: Home07/01/2025 2:20 PM EDTTelemedicine [facility] [address] [place] [phone] Alondra Patel APRN-LAURI Generalized abdominal pain (Primary Dx); Nausea and vomiting, unspecified vomiting type; Right upper quadrant pain; Migraine with aura and without status migrainosus, not kfqsfbwdmae76/14/2025 Yyuflg2306/29/2025[facility] [address] [place] [phone] Alondra Patel APRN-LAURI Lung nodule (Primary Dx)06/24/2025 3:30 PM EDT - 06/24/2025 11:59 PM EDTHospital Encounter [facility] - CT Imaging [address] [place] [phone] Former smoker; Encounter for screening for malignant neoplasm of lung in former smoker who quit in past 15 years with 20 pack year history or greater Discharge Disposition: Home06/24/20252029Zhwfqw34/05/2025Orders Only [facility] [address] [place] [address] Nolvia Butler CNA Liver lesion; Non-alcoholic fatty liver vibnrsn3306/22/2025Orders Only [facility] [address] [place] [address] [place] [address] Ref Prov, Not In System from Last 3 Months Immunizations No known immunizations Family History Medical HistoryRelationNameCommentsAsthmaBrotherDepressionBrotherDrug abuse BrotherEarly deathBrotherdrug overdoseIrritable bowel syndromeBrotherMental illnessBrotherAsthmaDaughterAlcohol abuseFatherArthritisFatherCOPDFather DiverticulitisFatherHearing lossFatherHeart diseaseFatherHeart failureFather HypertensionFatherThroat cancerFatherStrokeMaternal AuntArthritisMaternal GrandfatherAlzheimer's diseaseMaternal GrandmotherDiabetesMaternal Grandmother StrokeMaternal GrandmotherDiabetesMaternal UncleDiabetes type IIMaternal Uncle Heart attackMaternal UncleHeart diseaseMaternal UncleStrokeMaternal Uncle DepressionMotherDiabetesMotherHyperlipidemiaMotherIrritable bowel syndromeMother StrokeMothertraumatic brain injury after car accidentTransient ischemic attack MotherArthritisPaternal GrandfatherRheum arthritisPaternal GrandmotherVision lossPaternal GrandmotherAnesthesia problemsSisterDiverticulitisSisterHearing lossSisterHyperlipidemiaSisterAsthmaSonHodgkin's lymphomaSonRelationNameStatus CommentsBrotherDeceasedDaughterFatherMaternal AuntMaternal GrandfatherMaternal GrandmotherMaternal UncleMotherPaternal GrandfatherPaternal GrandmotherSisterSon Social History Tobacco UseTypesPacks/DayYears UsedDateSmoking Tobacco: YyiihbEkytxvturi160 02/02/1979 - 02/02/1995 Tobacco Cessation:Counseling Given: Not Answered Alcohol UseStandard Drinks/WeekCommentsNo0 (1 standard drink = 0.6 oz pure alcohol)PHQ-2AnswerDate RecordedTotal Puayu291/13/2025ChildcareAnswerDate FtibocouXbalcvufaSuwjvhp62/12/2019EmploymentAnswerDate RecordedEmploymentUnknown 04/29/2019Hunger ScreeningAnswerDate RecordedWithin the past 12 months we worried whether our food would run out before we got money to buy more.Never True08/30/2025Within the past 12 months the food we bought just didn't last and we didn't have money to get more.Never True08/30/2025Purpose - LifeAnswerDate RecordedPurpose and direction in tzndRtubtnf82/11/2021CommentsNoSex and Gender InformationValueDate RecordedSex Assigned at BirthNot on fileLegal Sex Vhecjo4606/23/2015 12:00 PM EDTGender IdentityNot on fileSexual OrientationNot on file Last Filed Vital Signs Vital SignReadingTime TakenCommentsBlood Txnnlnez463/6207 4:16 PM EDT Pswjy660505/19/2025 4:16 PM JTTRtnvomozqkd90.3 ??C (97.4 ??F)05/19/2025 4:16 PM EDTRespiratory Uole725002/04/2017 5:44 PM EDTOxygen Uxvjswkrjz20%05/19/2025 4:16 PM EDTInhaled Oxygen Concentration--Wxkjsd90.3 kg (141 lb 12.8 oz)05/19/2025 4:16 PM EHVNaeqss515.9 cm (5' 0.98 )05/19/2025 4:16 PM EDTBody Mass Index26.81 05/19/2025 4:16 PM EDT Plan of Treatment DateTypeDepartmentCare Team (Latest Contact Info)Gchsndjqhnz49/07/2026 10:40 AM ESTTelemedicine [facility] [address] [place] [phone] Alondra Patel APRN-LAURI [address] [place] [address], [place] [phone] Health MaintenanceDue DateLast DoneCommentsAdult BMI Follow Up Plan1990 COVID-19 Vaccine ( season)5011/23/2022, 07/19/2021, 02/16/2021, Additional history existsInfluenza Nxxbqow21/, 11/23/2022, 10/05/2009dult BMI Adgurlemn87/12/2024Tobacco Screening /Depression Xsfeqackb01DTaP,Tdap and Td Vaccines (2 - Td or Tdap)/Zoster (Shingles) VaccineCompleted 11/23/2022, 06/12/2022 Medical Devices Not on file Procedures Procedure NamePriorityDate/TimeAssociated DiagnosisCommentsUS ABDOMEN COMPLETE Trsetqh1807/02/2025 3:30 PM EDT Generalized abdominal pain Nausea and vomiting, unspecified vomiting type Right upper quadrant pain CT LOW DOSE LUNG ZCFURCYDOHnhaedt95/07/2025 3:59 PM EDT Former smoker Encounter for screening for malignant neoplasm of lung in former smoker who quit in past 15 years with 20 pack year history or greater from Last 3 Months Results * Ultrasound abdomen complete (07/02/2025 3:30 PM EDT)Anatomical Region LateralityModalityBody, AbdomenUltrasoundSpecimen (Source)Anatomical Location / LateralityCollection Method / VolumeCollection TimeReceived Time07/06/2025 7:26 AM EDT Narrative 07/06/2025 7:27 AM EDT US ABDOMEN COMPLETE Clinical history:Generalized abdominal pain; Nausea and vomiting, unspecified vomiting type; Right upper quadrant pain Comparison: None. Findings: Real-time sonographic evaluation the abdomen performed. Visualized portions of the pancreas appear unremarkable. The liver is unremarkable in echotexture and appearance. Gallbladder is unremarkable. No pericholecystic fluid, gallbladder wall thickening or cholelithiasis. No biliary dilatation. Common bile duct measures 0.3 cm. Main portal vein is patent with hepatopedal flow. Main portal vein velocity 24.4 cm/s. Right kidney measures 10.6 cm. Left kidney measures 10.1 cm. No renal collecting system dilatation,abnormal calcification or renal parenchymal distorting mass. Spleen is normal size and echotexture measuring 10.2 cm. Aorta and IVC the level of the upper abdomen are unremarkable. Impression: Unremarkable sonographic evaluation of the abdomen. Finalized by Jaquan Hernandez MD on 07/06/2025 7:27 AM Procedure Note Jaquan Hernandez MD - 07/06/2025 US ABDOMEN COMPLETE Clinical history:Generalized abdominal pain; Nausea and vomiting,unspecified vomiting type; Right upper quadrant pain Comparison: None. Findings: Real-time sonographic evaluation the abdomen performed. Visualized portions of the pancreas appear unremarkable. The liver is unremarkable in echotexture and appearance. Gallbladder is unremarkable. No pericholecystic fluid, gallbladder wall thickening or cholelithiasis. No biliary dilatation. Common bile ductmeasures 0.3 cm. Main portal vein is patent with hepatopedal flow. Mainportal vein velocity 24.4 cm/s. Right kidney measures 10.6 cm. Left kidney measures 10.1 cm. No renalcollecting system dilatation, abnormal calcification or renal parenchymaldistorting mass. Spleen is normal size and echotexture measuring 10.2 cm. Aorta and IVC the level of the upper abdomen are unremarkable. Impression: Unremarkable sonographic evaluation of the abdomen. Finalized by Jaquan Hernandez MD on 07/06/2025 7:27 AM Authorizing ProviderResult TypeResult StatusAlexandra Jorge STILL OPERATOR HELPER-CNPIMG US ORDERABLESFinal Result * CT low dose lung screening (Annual) (06/24/2025 3:59 PM EDT)Anatomical Region LateralityModalityBody, Lung, Chest, Body CoveraComputed TomographySpecimen (Source)Anatomical Location / LateralityCollection Method / VolumeCollection TimeReceived Time06/28/2025 4:02 PM EDT Addenda Addendum by Bryant Torres MD on 07/06/2025 6:52 PM EDT *ADDENDUM*Addendum: Reported 32 pack year history of smoking. Finalized by Bryant Torres MD on 07/06/2025 6:52 PM Narrative 06/28/2025 4:04 PM EDT CLINICAL INFORMATION: Screening visit: Personal history of tobacco use/history of nicotine dependence. Lung cancer screening. ?? The patient has a 16 pack-year history of smoking. The patient is a prior smoker. COMPARISON: No relevant prior studies are available. TECHNIQUE: Low dose CT chest performed without contrast with coronal and sagittal and maximum intensity projection reconstructed images. Maximum intensity projection images generated to increase the sensitivityof pulmonary nodule detection. Automated exposure control was utilized. All CT scans at this facility use dose modulation, iterative reconstruction, and/or weight based dosing when appropriate to reduce radiation dose to as low as reasonably achievable. Computer aided detection for pulmonary nodules was performed utilizing CQuotient software. FINDINGS: Diagnostic quality: Satisfactory Lung nodules: There are small peripheral right lung nodular densities, largest measuring 3-4 mm posterior right lower lobe, axial image #85. Short-term follow- up recommended to confirm stability. Lungs and pleural spaces: No focal infiltrate or consolidation. No pleural effusion. Heart and mediastinum:No mediastinal lymphadenopathy. Heart size: Normal Coronary calcification: None Pericardial effusion: None Other findings: Limited images of upper abdomen show cholelithiasis. Hyperattenuating material noted within the colon which appears to represent contrast. Please correlate with previous imaging. Osseous structures appear intact. IMPRESSION: Small right lung nodular densities, largest measuring 3 to 4 mm. In absence of previousexams, short-term follow-up would be recommended to confirm stability, CT in 4-6 months. Lung Rads Category: 3- Probably benign Recommendation: CT Low Dose Lung Screening 6 month follow up Finalized by Bryant Torres MD on 06/28/2025 4:04 PM Procedure Note Bryant Torres MD - 06/28/2025 CLINICAL INFORMATION: Screening visit: Personal history of tobacco use/history of nicotinedependence. Lung cancer screening. The patient has a 16 pack-year history of smoking. The patient is a prior smoker. COMPARISON: No relevant prior studies are available. TECHNIQUE: Low dose CT chest performed without contrast with coronal and sagittal and maximum intensity projection reconstructed images. Maximum intensityprojection images generated to increase the sensitivity of pulmonarynodule detection. Automated exposure control was utilized. All CT scans at this facility use dose modulation, iterativereconstruction, and/or weight based dosing when appropriate to reduceradiation dose to as low as reasonably achievable. Computer aideddetection for pulmonary nodules was performed utilizing MyOtherDrive. FINDINGS: Diagnostic quality: Satisfactory Lung nodules: There are small peripheral right lung nodular densities,largest measuring 3-4 mm posterior right lower lobe, axial image #85.Short-term follow- up recommended to confirm stability. Lungs and pleural spaces: No focal infiltrate or consolidation. No pleural effusion. Heart and mediastinum:No mediastinal lymphadenopathy. Heart size: Normal Coronary calcification: None Pericardial effusion: None Other findings: Limited images of upper abdomen show cholelithiasis. Hyperattenuating material noted within the colon which appears torepresent contrast. Please correlate with previous imaging. Osseousstructures appear intact. IMPRESSION: Small right lung nodular densities, largest measuring 3 to 4mm. In absence of previous exams, short-term follow-up would berecommended to confirm stability, CT in 4-6 months. Lung Rads Category: 3- Probably benign Recommendation: CT Low Dose Lung Screening 6 month follow up Finalized by Bryant Torres MD on 06/28/2025 4:04 PM Authorizing ProviderResult TypeResult StatusAlexalynn HOUSEIMG CT ORDERABLESEdited Result - Final from Last 3 Months Insurance Advance Directives * Full Code (Latest Code Status on File) Date ActivatedDate InactivatedComments02/02/2017 3:46 PM02/04/2017 9:38 PM Care Teams Team MemberRelationshipSpecialtyStart DateEnd Date Alondra Patel APRN-CNP [address] [place], [place] [address], [place] [address] PCP - GeneralNurse Tkbqjebafezd89/22/24
--- OUTSIDE RECORDS SUMMARY | 2025-09-13 14:02 | XMS_ITS | Clinical Summary ---
Author Organization [facility] Address [address] [facility], [address] [place] [address] Care Team Providers Care [place] Protection Maintainer Name Role Phone David Mayfield DO Primary Care Provider Unavaila ble Allergies Active AllergyReactionsCriticalityNoted DateCommentsMorphineNausea And Vomiting Low07/20/20174343Maevgqwgbaa88/04/0346Vfxtgpqryn92/02/2017 Medications MedicationSigDispense QuantityRefillsLast FilledStart DateEnd DateStatus topiramate (TOPAMAX) 100 MG tablet Take 100 mg by mouth 2 times daily.Active hydrocortisone (CORTEF) 20 MG tablet Take 20 mg by mouth 2 times daily.Active naratriptan (AMERGE) 2.5 MG tablet Take 2.5 mg by mouth once as needed for Migraine. 2.5 mg at onset of headache, may repeat in 4 hours if neededActive pravastatin (PRAVACHOL) 20 MG tablet Take 20 mg by mouth daily.Active tiZANidine (ZANAFLEX) 4 MG tablet Take 4 mg by mouth every 6 hours as needed (prn for sleep)Active ondansetron (ZOFRAN) 8 MG tablet Take 8 mg by mouth every 8 hours as needed for Nausea or Vomiting.Active carBAMazepine (TEGRETOL-XR) 100 MG SR tablet Take 400 mg by mouth daily as neededActive diazepam (VALIUM) 5 MG tablet 10 mg 2 times daily as needed for Szqle630ctive metoclopramide (REGLAN) 10 MG tablet ctive SAVELLA 12.5 MG TABS ctive montelukast (SINGULAIR) 10 MG tablet 06/27/2015ctive promethazine (PHENERGAN) 25 MG tablet ctive sucralfate (CARAFATE) 1 GM tablet ctive zolpidem (AMBIEN CR) 12.5 MG CR tablet ctive traMADol (ULTRAM) 50 MG tablet Take 50 mg by mouth every 6 hours as needed for PainActive ondansetron (ZOFRAN ODT) 4 MG disintegrating tablet Take 1 tablet by mouth every 8 hours as needed for Nausea 20 tablet 01/26/2017Active cephALEXin (KEFLEX) 500 MG capsule Take 500 mg by mouth 4 times dailyActive ciprofloxacin-dexamethasone (CIPRODEX) 0.3-0.1 % otic suspension Place 4 drops into the left ear 2 times dailyActive hydrOXYzine (VISTARIL) 25 MG capsule Take 25 mg by mouth 3 times daily as needed for ItchingActive baclofen (LIORESAL) 10 MG tablet Take 10 mg by mouth every 4 hours as needed (pain)Active levothyroxine (SYNTHROID) 50 MCG tablet Take 1 tablet by mouth Daily 30 tablet 07/24/2017Active metoprolol tartrate (LOPRESSOR) 25 MG tablet Take 1 tablet by mouth 2 times daily 60 tablet Active Active Problems ProblemNoted DateDiagnosed DateDDD (degenerative disc disease), uzbanq5809/03/2017 Lumbosacral spondylosis without pqzpoeqhvt06/17/2017Lumbar radiculopathy 09/03/20170443Vxsnafndnar84/02/2017Cervical spondylosis without fdrduwvfne71/24/2015 Ydujfqymowaxdf32/11/2014drenal rkaiakjaztpkp40/11/5601Lqwcdmx43/11/2014 Generalized abdominal painIatrogenic thyrotoxicosis Social History Tobacco UseTypesPacks/DayYears UsedDateSmoking Tobacco: FormerSmokeless Tobacco: NeverAlcohol UseStandard Drinks/WeekCommentsNo0 (1 standard drink = 0.6 oz pure alcohol)CommentsUnknownSex and Gender InformationValueDate RecordedSex Assigned at BirthNot on fileLegal VyxTbjjax47/12/2013 11:07 PM ESTGender IdentityNot on fileSexual OrientationNot on file Last Filed Vital Signs Vital SignReadingTime TakenCommentsBlood Gfrhswsi451/7309 2:01 PM EDT Syxmi4918 2:01 PM JMICyfqpbbxsvt86.6 ??C (97.8 ??F)09/19/2018 2:06 PM EDTRespiratory Uvtl797507/24/2017 2:01 PM EDTOxygen Hzjdnnqsjb89%07/24/2017 2:01 PM EDTInhaled Oxygen Concentration--Ftaddo90.9 kg (132 lb)09/19/2018 2:06 PM EDT Arqqvq734.2 cm (5' 1.5 )09/19/2018 2:06 PM EDTBody Mass Index24.5409/19/2018 2:06 PM EDT Plan of Treatment Not on file Insurance Advance Directives * Full Code (Latest Code Status on File) Date ActivatedDate InactivatedComments07/20/2017 9:03 PM07/24/2017 8:15 PM Care Teams Team MemberRelationshipSpecialtyStart DateEnd Date David Mayfield DO [address] [place] [address] PCP - Generalmily Rrdqgqyv05/28/19
--- OUTSIDE RECORDS SUMMARY | 2025-09-13 14:02 | XMS_ITS | Encounter Summary ---
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 Care Provider Encounter Details DateTypeDepartmentCare Team (Latest Contact Info)Zoaosmgxrod32/13/2025Travel Social History Tobacco UseTypesPacks/DayYears UsedDateSmoking Tobacco: FnjytyRqsguabomf506 02/02/1979 - 02/02/1995Alcohol UseStandard Drinks/WeekCommentsNo0 (1 standard drink = 0.6 oz pure alcohol)PHQ-2AnswerDate RecordedTotal Qqmhw377 ChildcareAnswerDate RlyjplymOxuzxzpqcOuqjmtr28/12/2019EmploymentAnswerDate ZyshmdarHnmcssowmbCxxogqe79/12/2019Hunger ScreeningAnswerDate RecordedWithin the past 12 months we worried whether our food would run out before we got money to buy more.Never True08/30/2025Within the past 12 months the food we bought just didn't last and we didn't have money to get more.Never True08/30/2025Purpose - LifeAnswerDate RecordedPurpose and direction in hhvcLlaxerr13/11/2021 CommentsNoSex and Gender InformationValueDate RecordedSex Assigned at BirthNot on fileLegal CtjOegklq68/06/2015 12:00 PM EDTGender IdentityNot on fileSexual OrientationNot on filedocumented as of this encounter Plan of Treatment DateTypeDepartmentCare Team (Latest Contact Info)Tznbqapvdds77/07/2026 10:40 AM ESTTelemedicine [facility] [address] [place] [address] [phone] Alondra Patel APRN-CNP [address] [place] [address] [phone] documented as of this encounter Visit Diagnoses Not on filedocumented in this encounter Additional Health Concerns AssessmentNoted TimePHQ-9 Depression Total Score: 2:34 PM EDT documented as of this encounter Care Teams Team MemberRelationshipSpecialtyStart DateEnd Date Alondra Patel APRN-CNP [address] [place] [phone] PCP - GeneralNurse Tztygnrmscbp83/22/24documented as of this encounter
--- OUTSIDE RECORDS SUMMARY | 2025-09-13 14:02 | XMS_ITS | Clinical Summary ---
Author Organization [facility] Address [address] [place] [address] Care Team Providers Care Recreation Teacher Name Role Phone Alondra Patel LAURI Primary Care Provider Allergies Active AllergyReactionsCriticalityNoted DateCommentsAzithromycinOther,RashLow 04/06/20114618LvhzkxpjrixgveDxtaeGjcl80/08/2010 Other reaction(s): GI Disturbance PtlngpwbgeWphngpgwImj04/03/2011 Severe abdominal pain Severe abdominal pain Severe abdominal pain UkafkuzyzznsUxcnqkpz32/26/2011 Had 4+ edema in legs and arms the day after taking a new prescription. Had 4+ edema in legs and arms the day after taking a new prescription. Had 4+ edema in legs and arms the day after taking a new prescription. MhwgupuhztHfrew43/13/2022MidazolamNausea And Vomiting,Other,GI intolerance 05/31/2010MorphineNausea And Vomiting,GI tcxxfelbacpHuk43/14/2010NaproxenOther, AnpnErg5401/05/2011OtherHives,Itching,Rash,BmgrwgqxNyjn70/18/2017 Specifically, cat gut sutures PenicillinsHives,Rash,JsmeqdmIeb53/06/2004SuturesSwelling,Hives,Itching,RashHigh 10/29/2013 Specifically, cat gut sutures Received name: Sutures JdzpxxtayqPsber84/21/2016 Medications MedicationSigDispense QuantityRefillsLast FilledStart DateEnd DateStatus liothyronine (Cytomel) 5 mcg tablet Take 5 mcg by mouth in the morning. 2 tablets daily08/30/2022ctive estrogens-methyltestosterone (EEMT,Covaryx) 1.25-2.5 mg tablet Take 1 tablet by mouth in the morning.Active evolocumab (Repatha Diamond) 140 mg/mL pen injector INJECT 140 MG UNDER THE SKIN EVERY 2 WEEKS01/23/2021ctive ezetimibe (Zetia) 10 mg tablet Take 10 mg by mouth.02/19/2022ctive levothyroxine (Synthroid, Levoxyl) 50 mcg tablet Take 1 tablet by mouth in the morning.07/24/2017Active sodium,calcium,mag,pot oxybate (Xywav) 0.5 gram/mL solution every 12 (twelve) hours.09/21/2022ctive carBAMazepine XR (TEGretol XR) 200 mg 12 hr tablet Take 200 tablets by mouth if needed in the morning and at bedtime.Active dexAMETHasone (Decadron) 4 mg/mL injection INJECT 1 ML INTRAMUSCULARLY EVERY 6 HOURS NEEDED FOR ADRENAL STRESS. USE WHEN VOMITING OR DIARRHEA PREVENTS USE OF THE ORAL DOSE02/19/2022ctive ketorolac (Toradol) 60 mg/2 mL solution INJECT 2 ML INTRAMUSCULARLY EVERY 6 HOURS NEEDEDActive Vyvanse 50 mg capsule Take 70 mg by mouth in the morning.02/09/2023ctive SUMAtriptan (Imitrex) 100 mg tablet Take 100 mg by mouth.Active tiZANidine (Zanaflex) 4 mg tablet Take 4 mg by mouth.07/24/2016Active pregabalin (Lyrica) 100 mg capsule Take 100 mg by mouth in the morning and at bedtime.Active desmopressin (DDAVP) 0.1 mg tablet Indications:POTS (postural orthostatic tachycardia syndrome)Take 2 tablets (0.2 mg) by mouth three times daily. 540 tablet ctive eletriptan (Relpax) 40 mg tablet TAKE 1 TABLET BY MOUTH ONCE NEEDED FOR MIGRAINE. MAY REPEAT IN 2HRS IF UNRESOLVED. DO NOT EXCEED2 TABS/24 HRSActive Active Problems ProblemNoted DateDiagnosed YrssMmsbfxjebihdrv81/28/7544Vxgvhonmvdeb83/28/2024 Muscle spasm10/15/2024Migraine without aura and without status migrainosus, not tgvzdvcyyjh60/22/2024History of irqxbuhtvwenrd53/29/2024ight inguinal hernia 07/03/20244210Esmgwiqqgljp33/15/9730Yqxzbjaj79/15/2022Hearing hoowjrdjwd26/15/2022 Mqdvijseqswfn24/15/2022Trigeminal /15/2022 Overview (10/02/2022): Left Last Assessment & Plan: Assessment:able to bite upper lip, no decreased ROM Sleep apnea10/02/2022 Overview (10/02/2022): Last Assessment & Plan: Assessment: patient denies currently Coxtoskiym00/15/8735Myxmrxtott41/15/2022 Overview (10/02/2022): Mild Iatrogenic jicpjxbovjxads26/15/1819Sovryuoyujekkk27/13/2021 Assessment & Plan (01/31/2024 2:51 PM EDT): Stable continue zetia Supraventricular jiaoruyhzhh34/13/2019 Assessment & Plan (01/31/2024 2:50 PM EDT): Stable, states tachycardia is well controlled on DDAVP POTS (postural orthostatic tachycardia syndrome)06/30/2019 Overview (10/02/2022): Last Assessment & Plan: Assessment: recently diagnosed- follows with Dr. Chichi Huerta at [place] On DDVAP- currently stable Assessment & Plan (01/31/2024 2:54 PM EDT): Stable, continue DDAVP- will increase to 0.2 mg po tid for better POTS management Continue to adequately hydrate, and sodium intake Cholesteatoma, middle ear, left08/05/2018 Overview (10/02/2022): Added automatically from request for surgery [id number] Tinnitus, pzlplhfty45/27/2018Conductive hearing loss, ulysbyqto88/23/2018 Disorder of pituitary gland02/27/2018DDD (degenerative disc disease), lumbar 09/03/2017Lumbosacral spondylosis without wazswukqlx46/17/2017Lumbar habytplxdwbog55/17/2017 Overview (10/02/2022): lower, right moderate, left mild Qjkliqyfoul50/02/2017Abnormal CT scan, colon02/04/2017Chronic kccbuvpd09/20/2017 Generalized abdominal pain02/03/2017Addison's wauagvt0502/02/20170343Fxtjxfs02/18/2017 Chronic daily /10/2015Pain disorder associated with psychological and physical flyuwoz3609/27/2015Medication overuse whsorqqh35/10/2015Intractable chronic migraine without aura and without status /10/2015 Overview (10/02/2022): Last Assessment & Plan: Assessment: medications PRN Cervical spondylosis without gnaumpqxqa32/24/5888Xamzqvl90/11/2014Hypothyroidism 09/28/2014 Overview (10/02/2022): Last Assessment & Plan: Assessment: on thyroid medications Rotator cuff (capsule) qqgjld3608/12/2014drenal khxvckjsfrwja77/12/2013 Overview (10/02/2022): Last Assessment & Plan: Assessment: on daily hydrocortisone stable Chronic suppurative otitis media of both ears09/20/20116848Sxgjxwwjv51/14/2010 Hearing jrmaxfbklr71/10/2009 Family History Medical HistoryRelationNameCommentsAtrial fibrillationFatherHypertensionFather StrokeMotherRelationNameStatusCommentsFatherMother Social History Tobacco UseTypesPacks/DayYears UsedDateSmoking Tobacco: FormerCigarettes Smokeless Tobacco: Never Tobacco Cessation:Counseling Given: Not Answered Alcohol UseStandard Drinks/WeekCommentsNot Currently0 (1 standard drink = 0.6 oz pure alcohol)UT Safety & EnvironmentAnswerDate RecordedFear of Current or Ex-PartnerNot on file02/22/2024Emotionally AbusedNot on file01/09/2024hysically AbusedNot on file01/09/2024Sexually AbusedNot on file01/09/2024hysically or Sexually AbusedNot on file01/09/2024CommentsUnknownSex and Gender InformationValueDate RecordedSex Assigned at BirthNot on fileLegal SexFemale 05/16/2022 10:57 PM EDTGender IdentityNot on fileSexual OrientationNot on file Last Filed Vital Signs Vital SignReadingTime TakenCommentsBlood Mgvbjmvs359/7912/24/2024 11:01 AM EST Hucfn108812/24/2024 11:01 AM ESTTemperature--Respiratory Gzxj387701/31/2024 2:28 PM EDTOxygen Jxskkajvpn12%01/31/2024 2:28 PM EDTInhaled Oxygen Concentration-- Gyevzf08 kg (130 lb)12/24/2024 11:01 AM TUIAzajyu555.9 cm (5' 1 )12/24/2024 11:01 AM ESTBody Mass Index24.56012/24/2024 11:01 AM EST Plan of Treatment Health MaintenanceDue DateLast DoneCommentsCT Upuevmmijhwp1972Colonoscopy 1972FIT-DNA1972FOBT1972Medicare Annual Wellness (AWV) 1972 2167Selltnmkmkilw1972Depression Ijmnqbubi02/31/1984Hepatitis B Vaccines (1 of 3 - 19+ 3-dose series)1991Pap Smear1993Cervical Cancer Pecxcypff52/31/2002HPV/Aewblz0204/17/20024434Etdpflsyl42/31/2012Colorectal Cancer Cazywqofo90/31/9173CTV61/31/2734313COVID-19 Vaccine ( season)501/04/2023, 07/19/2021, 02/16/2021, Additional history exists Influenza Vaccine (#1)510/, 11/23/2022, 10/05/2009dult Tetanus Zoster KqqyzuwuBokxvgerj95/06/2023, 06/12/2022HIB Vaccines Aged OutNo longer eligible based on patient's age to complete this topicHPV VaccinesAged OutNo longer eligible based on patient's age to complete this topic IPV VaccinesAged OutNo longer eligible based on patient's age to complete this topicMeningococcal B VaccineAged OutNo longer eligible based on patient's age to complete this topicMeningococcal VaccineAged OutNo longer eligible based on patient's age to complete this topicPneumococcal Vaccine: Pediatrics (0 to 5 Years) and At-Risk Patients (6 to 64 Years)Aged OutNo longer eligible based on patient's age to complete this topicRotavirus VaccinesAged OutNo longer eligible based on patient's age to complete this topic Insurance Care Teams Team MemberRelationshipSpecialtyStart DateEnd Date Alondra Patel CNP [address] [place] [address] [address] [place] [address] PCP - GeneralFamily Medicine12/24/24
--- OUTSIDE RECORDS SUMMARY | 2025-09-13 14:02 | XMS_ITS | Clinical Summary ---
Author Organization [facility] Address [address] [place] [address] Care Team Providers Care Biomass Technician Name Role Phone David Dyson MD Primary Care Provider [phone] Allergies Active AllergyReactionsCriticalityNoted DateCommentsAzithromycinOther,RashLow 04/06/2011DuloxetineOther,ZbmsrnbtWgm17/03/2011 Severe abdominal pain Severe abdominal pain Severe abdominal pain Severe abdominal pain Duloxetine PukVtndh69/25/2023IndomethacinOther,Expjabmy26/26/2011 Had 4+ edema in legs and arms the day after taking a new prescription. Had 4+ edema in legs and arms the day after taking a new prescription. Had 4+ edema in legs and arms the day after taking a new prescription. Had 4+ edema in legs and arms the day after taking a new prescription. HguheXwjmPvm45/25/0387ApnbhfuvosjcTkbkr82/25/2023MeperidineNausea And Vomiting, Other,GI odfecbjiqch98/14/2010Meperidine Hcl06/11/2023MidazolamGI intolerance, Nausea And Vomiting,Unknown,Other05/31/2010MorphineGI intolerance,Nausea And KhxtjtgiCmb73/14/2010OtherOther,Itching,LcfhEqgh17/12/2013 Specifically, cat gut sutures Received name: Sutures PenicillinsHives,Other,Rash,UrugfkwPsi83/06/2004VancomycinOther,GI intolerance, Sknxdvf9312/08/2015 Medications MedicationSigDispense QuantityRefillsLast FilledStart DateEnd DateStatus tiZANidine (Zanaflex) 4 MG tablet Take 4 mg by mouth Daily as needed.Active SUMAtriptan (Imitrex) 100 MG tablet TAKE ONE TABLET BY MOUTH AFTER ONSET OF MIGRAINE, MAY REPEAT AFTER 2 HOURS IF HEADACHE RETURNS. DO NOT EXCEED 200MG IN 24 HOURS.Active promethazine (Phenergan) 25 MG tablet Take 25 mg by mouth every 6 (six) hours if needed.Active pregabalin (Lyrica) 100 MG capsule Take 100 mg by mouth in the morning and 100 mg in the evening.Active ondansetron (Zofran) 8 MG tablet Take by mouth every 8 (eight) hours if needed.Active omeprazole (PriLOSEC) [address] capsule PRNActive Vyvanse 40 MG capsule TAKE 1 CAPSULE BY MOUTH EVERY DAY FOR 30 DAYSActive liothyronine (Cytomel) 5 MCG tablet Take 5 mcg by mouth in the morning and 5 mcg before bedtime.Active levothyroxine (Synthroid, Levoxyl) 50 MCG tablet Take 1 tablet by mouth in the morning.12/24/2022ctive ketorolac (Toradol) 60 MG/2ML solution injection INJECT 2 ML INTRAMUSCULARLY EVERY 6 HOURS NEEDEDActive hydrocortisone (Cortef) 20 MG tablet Take 20 mg by mouth in the morning and 20 mg in the evening.Active ezetimibe (Zetia) 10 MG tablet Take 10 mg by mouth in the morning.03/22/2023ctive Repatha SureClick 140 MG/ML injection INJECT 140MG SUBCUTANEOUSLY EVERY TWO WEEKS03/22/2023ctive eletriptan (Relpax) 40 MG tablet Take 40 mg by mouth 1 (one) time if needed.Active desmopressin (DDAVP) 0.2 MG tablet Take 100 mcg by mouth in the morning and 100 mcg at noon and 100 mcg in the evening.03/25/2023ctive carBAMazepine XR (TEGretol XR) 200 MG 12 hr tablet Take 200 tablets by mouth 2 (two) times a day as needed.Active carBAMazepine (TEGretol) 200 MG tablet PRNActive Xywav 500 MG/ML solution 09/21/2022ctive ezetimibe (Zetia) 10 MG tablet ZetiaActive fluconazole (Diflucan) 150 MG tablet Indications:Vaginal dischargeTake 1 tablet every 3 days for 3 doses. 3 tablet 06/25/2025tive Est Estrogens-Methyltest (Estratest F.S.) 1.25-2.5 MG tablet Indications:Postmenopausal HRT (hormone replacement therapy)Take 1 tablet by mouth Daily 90 tablet 3105Active tacrolimus (Protopic) 0.1 % ointment Indications:Other atopic dermatitisApply topically 2 (two) times a day Apply to affected areas bid prn when flared 60 g 111Expired Est Estrogens-Methyltest (Estratest F.S.) 1.25-2.5 MG tablet Indications:Postmenopausal HRT (hormone replacement therapy)Take 1 tablet by mouth Daily 90 tablet Discontinued(Reorder) Active Problems No known active problems Encounters DateTypeDepartmentCare UhwpVghhvptzzzf27/08/2025Telephone [facility] [address] [place] [address] Leela Davison LPN Medication Questionfrom Last 3 Months Family History Medical HistoryRelationNameCommentsBipolar mhzqxsouMlhycsev0QeyykdahaUagqej CancerFatherHeart diseaseFatherHypertensionFatherAnemiaMotherDiabetesMother JztcmoszYbdbStryyoTabhflilTeikbyir8QcbwmvezPoohfyWnljyquxCjcflkEcnvg Social History Tobacco UseTypesPacks/DayYears UsedDateSmoking Tobacco: NeverSmokeless Tobacco: Never Tobacco Cessation:Counseling Given: Not Answered Alcohol UseStandard Drinks/WeekCommentsNever0 (1 standard drink = 0.6 oz pure alcohol)PHQ-2AnswerDate RecordedPatient Health Questionnaire-2 Pxedc47311/23/2023 CommentsNoSex and Gender InformationValueDate RecordedSex Assigned at BirthNot on fileLegal LekBfgsrg59/15/2023 6:39 PM EDTGender IdentityNot on file Sexual OrientationNot on file Last Filed Vital Signs Vital SignReadingTime TakenCommentsBlood Ztqmswit308/7009/23/2024 12:41 PM EST Pulse--Temperature--Respiratory Rate--Oxygen Saturation--Inhaled Oxygen Concentration--Cdytll84.3 kg (133 lb)09/23/2024 12:41 PM WEWZycbqd896.5 cm (5' 2 )02/13/2023 12:00 PM EDTBody Mass Index24.33002/13/2023 12:00 PM EDT Plan of Treatment DateTypeDepartmentCare Team (Latest Contact Info)Wwpvidhclow64/11/2025 1:45 PM ESTOffice Visit [facility] [address] [place] [phone] Tu Flores MD [address] [place] [address] Health MaintenanceDue DateLast DoneCommentsCT Hyaazypfxlkz1972Colonoscopy 1972FIT1972FOBT1972 0743Ildteutqvwhse1972Pap Smear1993 Cervical Cancer Qzhbhizqs64/31/2002HPV/Ixiozz3404/17/2002Influenza Vaccine (#1) 51, 11/23/20228602Razgegzsh83, 09/11/2023, 08/20/2022, Additional history existsColorectal Cancer Etfbohtbg29/31/2026 FIT-DNA6012/18/2022, 12/18/2022 Procedures Procedure NamePriorityDate/TimeAssociated DiagnosisCommentsMM TOMOSYNTHESIS SCREENING BI09/13/2024 8:00 PM EDT LAB COLOGUARD?? COLON CANCER FNONPDYkeubwa03/31/2023 from Last 3 Months or Most Recently Relevant to Health Maintenance Results * MM TOMOSYNTHESIS SCREENING BI (09/13/2024 8:00 PM EDT)Anatomical Region LateralityModalityOtherSpecimen (Source)Anatomical Location / Laterality Collection Method / VolumeCollection TimeReceived Time09/13/2024 8:00 PM EDT Narrative 09/13/2024 8:01 PM EDT [facility] ?[address] ? [place] [address] ? Mammography Report ? Signed ? Patient: Adam,Theodore L ?MR#: [id number] ?? : 1970 ?Acct:[id number] ?? Age/Sex: 54 / F ?ADM Date: 10/25/24 ?? Loc: MAMMO ? Attending Dr: TU FLORES ? Ordering Physician: TU FLORES ? Results: ? Date of Service: 09/11/24 ?Follow Up: ? Procedure(s): MM tomosynthesis screening BI ?? Accession Number(s): [id number] ? cc: TU FLORES ; DAVID DYSON ? Patient Name: ? THEODORE LEWISJCNohemi ? MR#: [id number] ? : 1970 ? Exam Date: 09/11/2024 ?? Ordering Doctor: DR TU FLORES ? RADIOLOGY REPORT ? PROCEDURE: ? MM TOMOSYNTHESIS SCREENING BI ? COMPARISON: ? MM TOMOSYNTHESIS SCREENING BI, 09/09/2023. ??MG MAMM SCREEN 3D ?? [place] CAD, 08/20/2022. ??MG MAMM SCREEN 3D [place] CAD, 08/17/2021. ??MG MAMM [place] SCRN ?? W CAD DIG, 10/13/2007. ? INDICATIONS: ? Screening ? Calculator Name ? NCI Breast Cancer Risk Assessment Tool ?? 5 Year Breast Cancer Risk ? 0.70% ?? Lifetime Breast Cancer Risk ? 5.80% ?? Personal Breast Cancer ?No ?? Personal Ovarian Cancer ? No ?? Treatments ? None ?? Family Cancers ? Son with hodgkins cancer at age 14; Father with throat ?? cancer at age 72. ? LOCATION: ? [facility] ? BREAST COMPOSITION: ? The breasts are heterogeneously dense,which may ?? obscure small masses. ? FINDINGS: ? DIAGNOSTIC CATEGORY 1--NEGATIVE. ? RIGHT BREAST: ??No significant suspicious finding. ??This exam includes ?? additional mammographic views for implant evaluation and shows no visible ?? implant abnormality. ??No significant change has occurred. ? LEFT BREAST: ??No significant suspicious finding. ??This exam includes ?? additional mammographic views for implant evaluation and shows no visible ?? implant abnormality. ??No significant change has occurred. ? RECOMMENDATIONS: ? ROUTINE MAMMOGRAM AND CLINICAL EVALUATION IN 12 MONTHS. ? PLEASE NOTE: ??A NORMAL MAMMOGRAM DOES NOT EXCLUDE THE POSSIBILITY OF BREAST ?? CANCER. ??A CLINICALLY SUSPICIOUS PALPABLE LUMP SHOULD BE BIOPSIED. ? Dictated by: Jean Pierre Kirk M.D. on 09/13/2024 at 19:58 ? Approved by: Jean Pierre Kirk M.D. on 09/13/2024 at 20:00 ? Dictated By: ?Jean Pierre Kirk M.D. ? Signed By: ?09/13/242000 ? DD/ 99 ? TD/TT: ? Transmission Engineer: Procedure Note Radiology, Radiologist, MD - 09/13/2024 [place] [address] Mammography Report Signed Patient: Theodore Lion LMR#: [id number] : 1970Acct:[id number] Age/Sex: 54 / FADM Date: 09/11/24 Loc: MAMMO Attending Dr: TU FLORES Ordering Physician: Diego FLORESults: Date of Service: 09/11/24Follow Up: Procedure(s): MM tomosynthesis screening BI Accession Number(s): [id number] cc: TU FLORES MAX Patient Name: THEODORE LION MR#: [id number] : 1970 Exam Date: 09/11/2024 Ordering Doctor: DR TU FLORES RADIOLOGY REPORT PROCEDURE: MM TOMOSYNTHESIS SCREENING BI COMPARISON: MM TOMOSYNTHESIS SCREENING BI, 09/09/2023. MG MAMM CTOPZN6M [place] CAD, 08/20/2022. MG MAMM SCREEN 3D [place] CAD, 08/17/2021. MG MAMM BILSCRN W CAD DIG, 10/13/2007. INDICATIONS: Screening Calculator Name NCI Breast Cancer Risk Assessment Tool 5 Year Breast Cancer Risk 0.70% Lifetime Breast Cancer Risk 5.80% Personal Breast Cancer No Personal Ovarian Cancer No Treatments None Family Cancers Son with hodgkins cancer at age 14; Father with throat cancer at age 72. LOCATION: [facility] BREAST COMPOSITION: The breasts are heterogeneously dense,which may obscure small masses. FINDINGS: DIAGNOSTIC CATEGORY 1--NEGATIVE. RIGHT BREAST: No significant suspicious finding. This exam includes additional mammographic views for implant evaluation and shows no visible implant abnormality. No significant change has occurred. LEFT BREAST: No significant suspicious finding. This exam includes additional mammographic views for implant evaluation and shows no visible implant abnormality. No significant change has occurred. RECOMMENDATIONS: ROUTINE MAMMOGRAM AND CLINICAL EVALUATION IN 12 MONTHS. PLEASE NOTE: A NORMAL MAMMOGRAM DOES NOT EXCLUDE THE POSSIBILITY OFBREAST CANCER. A CLINICALLY SUSPICIOUS PALPABLE LUMP SHOULD BE BIOPSIED. Dictated by: Jean Pierre Kirk M.D. on 09/13/2024 at 19:58 Approved by: Jean Pierre Kirk M.D. on 09/13/2024 at 20:00 Dictated By: Jean Pierre Kirk M.D. Signed By:09/13/242000 DD/ 99 TD/TT: Transmission Engineer: Authorizing ProviderResult TypeResult StatusTu Flores [facility] Final Result * Cologuard?? colon cancer screening (12/18/2022)ComponentValueRef RangeTest MethodAnalysis TimePerformed AtPathologist SignatureCOLOGUARD RESULT REPORTABLENegativeNegativeNOMS LEGACY EXTERNAL LABComment: NEGATIVE TEST RESULT. A negative Cologuard result indicates a low likelihood that a colorectal cancer (CRC) or advanced adenoma (adenomatous polyps with more advanced pre-malignant features) ??is present. The chance that a person with a negative Cologuard test has a colorectal cancer is less than 1in 1500 (negative predictive value >99.9%) or has an advanced adenoma is less than 5.3% (negative predictive value 94.7%). These data are based on a prospective cross-sectional study of 10,000individuals at average risk for colorectal cancer who were screened with both Cologuard and colonoscopy. (Rudyd Rodriguez al, N Engl J Med 2014;370(14):0251-1585) The normal value (reference range) for this assay is negative. COLOGUARD RE-SCREENING RECOMMENDATION: Periodic colorectal cancer screening is an important part ofpreventive healthcare for asymptomatic individuals at average risk for colorectal cancer. ??Following a negative Cologuard result, the [place] [employer] Society and U.S. Multi-Society Task Force screening guidelines recommend a Cologuard re-screening interval of 3 years. References: [place] [employer] Society Guideline for Colorectal Cancer Screening: https://www.cancer.or g/cancer/bowqx-tsfmsq-ppamyf/eyklgsvrd-locskgvqz-easrbiq/acs-recommendations.htm [place]; Harley VILA, Hiral JARVIS, Christina SaundersK, Colorectal Cancer Screening: Recommendations for Physicians and Patients from the U.S. Multi-Society Task Force on Colorectal Cancer Screening , Am J Gastroenterology 2017; 112:4730-7651. TEST DESCRIPTION: Composite algorithmic analysis of stool DNA-biomarkers with hemoglobin immunoassay. ?? Quantitative values of individual biomarkers are not reportable and are not associated with individual biomarker result reference ranges. Cologuard is intended for colorectal cancer screening ofadults of either sex, 45 years or older, who are at average-risk for colorectal cancer (CRC). Cologuard has been approved for use by the U.S. FDA. The performance of Cologuard was established in a cross sectional study of average-risk adults aged 50-84. Cologuard performance in patients ages 45 to 49 years was estimated by sub-group analysis of near-age groups. Colonoscopies performed for a positive result may find as the most clinically significant lesion: colorectal cancer [4.0%], advanced adenoma (including sessile serrated polyps greater than or equal to 1cm diameter) [20%] or non- advanced adenoma [31%]; or no colorectal neoplasia [45%]. These estimates are derived from a prospective cross-sectional screening study of 10,000 individuals at average risk for colorectal cancer who were screened with both Cologuard and colonoscopy. (Imperiale T. et al, N Engl J Med 2014;370(14):3881-0201.) Cologuard may produce a false negative or false positive result (no colorectal cancer or precancerous polyp present at colonoscopy follow up). A negative Cologuard test result does not guarantee the absence of CRC or advanced adenoma (pre-cancer). The current Cologuard screening interval is every 3 years. ([place] [employer] Society and U.S. Multi-Society Task Force). Cologuard performance data in a 10,000 patient pivotal study using colonoscopy as the reference method can be accessed at the following location: www.[employer].com/results. Additional description of the Cologuard test process, warnings and precautions can be found at www.cologuard.com. Specimen (Source)Anatomical Location / LateralityCollection Method / Volume Collection TimeReceived Time12/18/2022 Narrative Authorizing ProviderResult TypeResult StatusTu [facility] ORDERABLESFinal ResultPerforming OrganizationAddressCity/State/ZIP CodePhone Number [facility] from Last 3 Months or Most Recently Relevant to Health Maintenance Insurance Care Teams Team MemberRelationshipSpecialtyStart DateEnd Date David Dyson MD [address] [place] [phone] PCP - GeneralFamily Medicine06/11/23
--- OUTSIDE RECORDS SUMMARY | 2025-09-13 14:02 | XMS_ITS | Encounter Summary ---
Author Organization [facility] Dispatch s tem Address [id number] [place] [address] Care Team Providers Care Electroplating Sales Representative Name Role Phone Alondra Patel APRN-SCHEDULING AGENT Primary Care Provider Encounter Details DateTypeDepartmentCare Team (Latest Contact Info)Ikvajzekiep77/15/2025Telephone [facility] [address] [place] [address] [place] [address] Joan Bellamy CMA Social History Tobacco UseTypesPacks/DayYears UsedDateSmoking Tobacco: GotwmvIexsgilohz560 02/02/1979 - 02/02/1995Alcohol UseStandard Drinks/WeekCommentsNo0 (1 standard drink = 0.6 oz pure alcohol)PHQ-2AnswerDate RecordedTotal Ogfek292 ChildcareAnswerDate JhauuisoUtxttpbzjQttvahb23/12/2019EmploymentAnswerDate VminqbfzZofncztkhrYqzbvxp77/12/2019Hunger ScreeningAnswerDate RecordedWithin the past 12 months we worried whether our food would run out before we got money to buy more.Never True08/30/2025Within the past 12 months the food we bought just didn't last and we didn't have money to get more.Never True08/30/2025Purpose - LifeAnswerDate RecordedPurpose and direction in thvoMfvnllv11/11/2021 CommentsNoSex and Gender InformationValueDate RecordedSex Assigned at BirthNot on fileLegal AdkYnrllz71/06/2015 12:00 PM EDTGender IdentityNot on fileSexual OrientationNot on filedocumented as of this encounter Miscellaneous Notes * Telephone Encounter - Joan Bellamy CMA - 09/01/2025 9:05 AM EDT [facility] called into office wanting to make sure provider is aware of drug interaction between patients Xywav and pregablin. Stated they are being flagged that she picked up Xywav on 08/06/25. Needing clarification if this medication is okay to fill. Please advise? * Telephone Encounter - LACY Mcginnis - 09/01/2025 9:05 AM EDT Pt states she has used both of these medications for many many years, and has never had an interaction. I was aware of this, and pt assured me tolerates well * Telephone Encounter - Joan Bellamy CMA - 09/01/2025 9:05 AM EDT Called and informed pharmacy of provider response, verbalized understanding. documented in this encounter Plan of Treatment DateTypeDepartmentCare Team (Latest Contact Info)Qdmocplcxee96/07/2026 10:40 AM ESTTelemedicine [facility] [address] [place] [phone] Alondra Patel APRN-CNP [address] [place] [address], [place] [address] documented as of this encounter Visit Diagnoses Not on filedocumented in this encounter Additional Health Concerns AssessmentNoted TimePHQ-9 Depression Total Score: 2:34 PM EDT documented as of this encounter Care Teams Team MemberRelationshipSpecialtyStart DateEnd Date Alondra Patel APRN-CNP [address] [place] [address], [place] [address] PCP - GeneralNurse Cejgssfjsnks62/22/24documented as of this encounter
--- NOTE | 2025-09-13 14:03 | MM_ITS ---
Patient Name: THEODORE LION MR#: [id number] : 1970 Exam Date: 09/13/2025 Ordering Doctor: TU FLORES RADIOLOGY REPORT PROCEDURE: MM TOMOSYNTHESIS SCREENING BI COMPARISON: MM TOMOSYNTHESIS SCREENING BI, 09/11/2024. MM TOMOSYNTHESIS SCREENING BI, 09/09/2023. MG MAMM SCREEN 3D [place] CAD, 08/20/2022. MG MAMM [place] SCRN W CAD DIG, 10/13/2007. INDICATIONS: screening Calculator Name NCI Breast Cancer Risk Assessment Tool 5 Year Breast Cancer Risk 0.70% Lifetime Breast Cancer Risk 5.70% Personal Breast Cancer No Personal Ovarian Cancer No Treatments None Family Cancers Son with hodgkins cancer at age 14; Father with throat cancer at age 72. LOCATION: [facility] BREAST COMPOSITION: The breasts are heterogeneously dense, which may obscure small masses. FINDINGS: RIGHT BREAST: No significant suspicious finding. LEFT BREAST: No significant suspicious finding. DIAGNOSTIC CATEGORY 1--NEGATIVE. RECOMMENDATIONS: ROUTINE MAMMOGRAM AND CLINICAL EVALUATION IN 12 MONTHS. Dictated by: Gareth Posey DO on 09/13/2025 at 15:15 Approved by: Gareth Posey DO on 09/13/2025 at 15:16
--- OUTSIDE RECORDS SUMMARY | 2025-09-13 14:23 | XMS_ITS | CCD ---
Author Organization [facility] CliniSyde Care Team Providers Care Sail Cutter Name Role Phone PHYSICIAN, DEFAULT Unavailable Unavailable PHYSICIAN, DEFAULT Unavailable Unavailable RADHA CHRISTIAN Unavailable Unavailable TIFFANY DOTSON Unavailable Unavailable JUAN LUIS HUERTA AM Unavailable Unavailable DAVID MAYFIELD Unavailable Unavailable TIFFANY DOTSON Unavailable Unavailable KENNETH COTTER Unavailable Unavailable Radha Christian Unavailable Unavailable ELA EUGENE Referring Unavailable PAVLOCK, DAVID Echeverria Primary Care Unavailable Pavterrence, David Echeverria Primary Care Provider Chaparro, David Mejia Primary Care Provider [phone] Pavterrence, David Mejia Primary Care Provider Pavlock, David Barb Primary Care Provider Pavlock, David Mejia Primary Care Provider Pavlock, DO Hernandez L Primary Care Provider Pavterrence, DO Hernandez L Attending Provider TIERRA Tyson Referring Provider Albert Tysonra H Unavailable DR SEBASTIAN SHIN V Consulting Unavailable REQUEST, DR FAM LISTED Primary Care Unavaila DR TU Esposito Attending Unavailable SANDRA, DR MAE Admitting Unavailable DR TU FLORES Consulting Unavailable Pavterrence DO Hernandez L Primary Care Provider MD London Dockery Jr Emergency Provider John MAYORGA, Aki H Unavailable MD Ela Eugene Attending Provider Pavterrence, David L Primary Care Provider [phone] MD Ela Eugene Attending Provider [phone] TIERRA Peoples Attending Provider David Mayfield Primary Care Provider DO David Mayfield Primary Care Provider MD Ela Eugene Attending Provider [phone] DAVID MAYFIELD Primary Care Unavailable NORMA CRISTINA Attending Unavailable NORMA CRISTINA Admitting Unavailable David Mayfield MD Primary Care Provider David Mayfield DO Primary Care Provider [phone] Patel SAP PAYROLL CONSULTANT-LEAD FABRICATOR, Jeff Primary Care Provider Patel BAND SHOVER-C, Jeff K Primary Care Provider [phone] Ela Eugene MD Attending Provider [phone] Jacky Beltran MD Attending Provider [phone] ELA EUGENE Referring Unavailable AKI PEOPLES Attending Unavailable AZRA AGARWAL Attending Unavailable TU FLORES Attending Unavailable Patel BAND SHOVER-C, Jeff K Primary Care Provider Ela Eugene MD Attending Provider Jacky Beltran MD Attending Provider [phone] Paxton BAND SHOVER-CYamila Attending Provider [phone] Obdulia Mendez MD Referring Provider YAMILA MATTA Attending Unavailable Patel SAP PAYROLL CONSULTANT-LEAD FABRICATOR, Jeff Primary Care Provider Patel BAND SHOVER-C, Jeff K Primary Care Provider Patel BAND SHOVER-C, Jeff K Attending Provider Yamila Matta Admitting Unavailable Yamila Matta Attending Unavailable Patel, Jeff K Primary Care Unavailable Obdulia Mendez Referring Unavailable Patel, Jeff K Primary Care Unavailable Yamila Matta Admitting Unavailable Yamila Matta Attending Unavailable Patel, Jeff K Primary Care Unavailable Moosa, Lea F Admitting Unavailable Moosa, Ela F Attending Unavailable Moosa, Ela F Attending Unavailable Patel, Jeff K Primary Care Unavailable Moosa, Ela F Admitting Unavailable Beltran, Jacky Attending Unavailable Patel, Jeff K Primary Care Unavailable Beltran, Jacky Admitting Unavailable Moosa, Ela F Attending Unavailable Patel, Jeff K Primary Care Unavailable Moosa, Ela F Admitting Unavailable Patel, Jeff K Attending Unavailable Patel, Jeff K Admitting Unavailable Patel, Jeff K Primary Care Unavailable Patel, Jeff K Attending Unavailable Patel, Jeff K Admitting Unavailable Patel, Jeff K Primary Care Unavailable PATEL, JEFF Referring Unavailable PATEL, JEFF Primary Care Unavailable PATEL, JEFF Referring Unavailable PATEL, JEFF Primary Care Unavailable CARNZELDAALCRISTINA Referring Unavailable PATEL, JEFF ALLAN Primary Care Unavail able CRISTINA GREEN Referring Unavailable PATEL, JEFF ALLAN Primary Care Unavail able Patel LEAD FABRICATOR, Jeff Allan Primary Care Provid er [facility], [facility] Primary Care Provider [facility] Primary Care Unavailable ESTEMALIK, EMAD N Attending Unavailable ESTEMALIK, EMAD N [facility] Primary Care Unavailable DREW CASTELLANOS Attending Unavailable [facility] Primary Care Unavailable DREW CASTELLANOS Attending Unavailable [facility] Primary Care Unavailable STOCKTON, DARIANA Referring Unavailable [facility], [facility] Primary Care Unavailable STOCKTON, DARIANA Referring Unavailable [facility], [facility] Primary Care Unavailable ESTEMALIK, EMAD N Attending Unavailable ESTEMALIK, EMAD N Referring Unavailable [facility] Primary Care Unavailable CRISTINA GREEN Attending Unavailable [facility] Primary Care Unavailable SELF Referring Unavailable KAVON SNIDER Attending Unavailabl e PATEL, JEFF ALLAN Primary Care Unavail able CRISTINA GREEN Attending Unavailable [facility], [facility] Primary Care Unavailable CRISTINA GREEN Attending Unavailable [facility] Primary Care Unavailable ESTEMALIK, EMAD N Referring Unavailable ESTEMALIK, EMAD N Attending Unavailable PATEL, JEFF ALLAN Primary Care Unavail able ESTEMALIK, EMAD N Attending Unavailable ESTEMALIK, EMAD N Referring Unavailable [facility] Primary Care Unavailable FRANCIS GARCIA Attending Unavailabl e [facility] Primary Care Unavailable [facility] Primary Care Unavailable DHEERAJ CHEN Attending Unavailable DARIANA STOCKTON Attending Unavailable [facility] Primary Care Unavailable PATEL, JEFF Attending Unavailable MONTSE CHRISTIAN Referring Unavailable PATEL, JEFF Primary Care Unavailable PATEL, JEFF Attending Unavailable PATEL, JEFF Referring Unavailable PATEL, JEFF Primary Care Unavailable PATEL, JEFF Attending Unavailable PATEL, JEFF Referring Unavailable PATEL, JEFF Primary Care Unavailable PATEL, JEFF Attending Unavailable PATEL, JEFF Referring Unavailable PATEL, JEFF Primary Care Unavailable PATEL, JEFF Attending Unavailable PATEL, JEFF Referring Unavailable PATEL, JEFF Primary Care Unavailable PATEL, JEFF Attending Unavailable PATEL, JEFF Referring Unavailable PATEL, JEFF Primary Care Unavailable NABIL VILLAVICENCIO Attending Unavailable PATEL, JEFF Referring Unavailable PATEL, JEFF Primary Care Unavailable Allergies Allergy ClassificationReported Allergen(s)Allergy TypeDate of OnsetReaction(s) Facility (2 sources)clarithromycinDrug Mgrigcj65-81-9701NJ[facility]enNew[facility] (1 source)meperidineDrug Uufjlfy69-41-0856KbwNewark Hospital [facility] (1 source)midazolam; Translations: [VERSED]Drug Wqdbgtn98-08-8266[facility]New[facility] (7 sources)morphine; Translations: [MORPHINE]Drug Vbzelxd46-56-6968Rxq [facility] Repository (20 sources)Penicillins; Translations: [PENICILLINS]Drug allergy (disorder) 92-06-9965Azpw, HivesThe [facility] (2 sources)Sulfonamides (Antibiotic)Drug allergy (disorder)06-80-7572NWJCqrNewark Hospital [facility] (1 source)AZITHROMYOCIN; Translations: [AZITHROMYOCIN]Propensity to adverse reactions (disorder)60-60-5654Idq [facility] Repository (1 source)VANCOMYOCIN; Translations: [VANCOMYOCIN]Propensity to adverse reactions (disorder)40-74-4790Kbj [facility] Repository (1 source)cat cut suture; Translations: [cat cut suture]Propensity to adverse reactions (disorder)75-36-1245Qfk [facility] Repository (20 sources)MorphineDrug Pyoswwa40-17-7094Laymky And Vomiting, Vomiting, GI intoleranceAr[place], [place] (1 source)PenicillinsPropensity to adverse reactions to iptt44-49-6500LmkmsArchie, [place] (20 sources)Vancomycin; Translations: [VANCOMYCIN]Drug Ujydwgn15-38-3383JW Upset, Other, GI intolerance, Unknown, GI DisturbanceAr[place], [place] (20 sources)Azithromycin; Translations: [AZITHROMYCIN]Drug Cqrvilp70-49-7842 Rash, GI Upset, [facility] ([facility] sources)Clarithromycin; Translations: [CLARITHROMYCIN]Drug Lkrgbcs01-65-7013 GI Upset, [facility]anceM[facility] (20 sources)DULoxetine; Translations: [DULOXETINE]Drug Aqowzqe93-76-3617 Swelling, [facility] Work Phone: (20 sources)Indomethacin; Translations: [INDOMETHACIN]Drug Lzffdty45-43-3189 Swelling, [facility] Work Phone: (20 sources)Meperidine; Translations: [MEPERIDINE (PF)]Drug Ttuejok54-94-3406 VomitingMarietta [facility]opathic Clinic (20 sources)Midazolam; Translations: [MIDAZOLAM HCL]Drug Ulooapc65-23-0287 VomitingMarietta Osteopathic Clinic (20 sources)Naproxen; Translations: [NAPROXEN]Drug Dowpqfp45-22-3051BN Upset, RashMarietta Osteopathic Clinic (5 sources)PenicillinsPropensity to adverse sqyuddscy51-43-2013Fosg, Hives [facility] (20 sources)Sutures; Translations: [SUTURES]Allergy to aotzbwojf49-48-1534Qhiw, Hives, Swelling, ItchingMarietta Osteopathic Clinic (20 sources)PenicillinsPropensity to adverse ngmxpsord21-37-0001Byeq, [facility] (1 source)VancomycinDrug Mrpcudx85-69-2203Owm [facility] Repository (4 sources)DULoxetineDrug Wscqqry46-22-0054SqmegLKNM Healthcare (4 sources)LatexAllergy to bdrfkyikv23-84-2783WqmkTSWI Healthcare (4 sources)levoFLOXacinDrug Jxaiuzs26-31-5354XufgjWZZA Healthcare (5 sources)Meperidine; Translations: [MEPERIDINE]Drug Qaulyqr11-12-9594Skcnxx And Vomiting, Other, GI intoleranceNOMS Healthcare (4 sources)MeperidineDrug Eqsjtnx98-12-1715LRPO [facility] (5 sources)Midazolam; Translations: [MIDAZOLAM]Drug Qyvjutd38-23-2880PF intolerance, Nausea And Vomiting, Unknown, OtherNOMS Healthcare (4 sources)PenicillinsDrug Piukdcgwedi62-72-0042Fxkzd, Other, Rash, UnknownNOMS Healthcare (20 sources)Other; Translations: [OTHER]Propensity to adverse reactions 55-67-9145Isuts, Itching, Rash, Hives, SwellingNOMS Healthcare (20 sources)Enbucrilate; Translations: [ENBUCRILATE]Drug Vasxykg76-20-6474Wndu [facility] (20 sources)HMG-CoA reductase inhibitor; Translations: [JAKGRED-SPR-SUX REDUCTASE INHIBITORS]Propensity to adverse reactions to dxfb58-59-1802BthwemxoHelena Regional Medical Center (20 sources)PenicillinsDrug Rsywprfnwfb76-60-3886HzdjCherrington Hospital Work Phone: (1 source)PenicillinsDrug allergy (disorder)76-39-8879OppqutoadProvidence Hospital Repository Medications Current Medications MedicationDrug Class(es)DatesSig (Normalized)Sig (Original)acetaminophen 325 mg / HYDROcodone bitartrate 5 mg oral tablet (14 sources)Opioid AgonistStart: 05-29-2024 End: 87-88-8096YDSZKezkdkt-acetaminophen (NORCO) 5-325 mg per tablet Indications: Hemorrhoids, unspecified hemorrhoid type Take 1 tablet by mouth every 8 hours as needed for pain for up to 5 days. If you are takingNorco, do not take Tylenol. Take one or the other. 15 tablet 0 05/29/2024 06/03/2024 ActiveStart: 88-16-3994aucw 1 tablet by mouth every six hours as needed for pain amoxicillin 875 mg / clavulanate 125 mg oral tablet (14 sources)Penicillin-class AntibacterialStart: 06-03-2025 End: 65-70-0741jnli 1 tablet by mouth once in the morningamoxicillin-pot clavulanate (AUGMENTIN) 875-125 mg per tablet Indications: Diverticulitis Take 1 tablet by mouth in the morning and 1 tablet before bedtime. Do all this for 10 days. 20 tablet 06/03/2025 06/13/2025 ActiveStart: 12-15-2024 End: 19-86-3202wdkf 1 tablet by mouth once in the morningamoxicillin-pot clavulanate (AUGMENTIN) 875-125 mg per tablet Take 1 tablet by mouth in the morningand 1 tablet before bedtime. Do all this for 10 days. 20 tablet 12/15/2024 12/25/2024 ActiveStart: 07-13-2024 End: 60-90-5458hxvk 1 tablet by mouth twice dailyamoxicillin-clavulanate potassium (AUGMENTIN) 875-125 mg per tablet Take 1 tablet by mouth two times a day. 07/13/2024 10/05/2024 Discontinuedazithromycin 250 mg oral tablet (1 source)Macrolide AntimicrobialStart: 04-02-2025 End: 03-80-6211thee 1 tablet by mouth in the morning, then take 2 tablets by mouth once daily, then take 1 tablet by mouth once dailyazithromycin (ZITHROMAX) 250 mg tablet Take 1 tablet (250 mg total) by mouth in the morning for 5 days. Take 2 tablets the first day, then 1 tablet daily for 4 days. 6 tablet 04/02/2025 04/07/2025 Activebaclofen 10 mg oral tablet (17 sources)gamma-Aminobutyric Acid-ergic AgonistStart: 01-15-2025 End: 21-02-1974dicr 1 tablet by mouth three times dailybaclofen (LIORESAL) 10 mg tablet Indications: Fibromyalgia , Small fiber neuropathy , Muscle spasm TAKE 1 TABLET BY MOUTH 3 TIMES A DAY 90 tablet 1 08/07/2025 Activetake 1 tablet by mouth every four hours as needed for painbaclofen (LIORESAL) 10 MG tablet Take 10 mg by mouth every 4 hours as needed (pain) 0 Activebetamethasone 0.5 mg/ml / clotrimazole 10 mg/ml topical cream (20 sources)Azole Antifungal, CorticosteroidStart: 99-27-1643dfxehbfehwaw- betamethasone (LOTRISONE) cream Apply 1 Application topically as needed. 08/15/2024 Activebrompheniramine maleate 0.4 mg/ml / dextromethorphan hydrobromide 2 mg/ml / pseudoephedrine hydrochloride 6 mg/ml oral solution (15 sources)alpha-Adrenergic Agonist, Uncompetitive Y-xxqecf-O-aspartate Receptor Antagonist, Sigma-1 AgonistStart: 70-08-9749ukaa 5 mL by mouth four times daily as needed for ienhapzocbsntbgbcfbe-hbrrjobyd-TI 2-30-10 mg/5 mL syrup Take 5 mL by mouth 4 (four) times a day as needed for allergies, congestion or cough. 120 mL 04/02/2025 ActivecarBAMazepine 200 mg oral tablet (20 sources)Mood StabilizerStart: 06-12-2022 End: 86-10-0948vcwk 2 tablets by mouth three times dailycarBAMazepine (TEGRETOL) 200 mg tablet Take 2 tablets by mouth three times a day. 180 tablet 11 02/2024 ActiveStart: 09-14-2021 End: 17-85-0940fkou 1 tablet by mouth twice dailycarBAMazepine XR (TEGRETOL XR) 200 mg 12 hr tablet Take 1 tablet by mouth twice daily. 60 tablet 07/05/2023 Discontinued (Course of therapy completed)Start: 06-09-2021 End: 21-02-3600bxfp 1 tablet by mouth once as neededcarBAMazepine (TEGRETOL) 200 mg tablet TAKE 1 TABLET BY MOUTH EVERY TWELVE HOURS NEEDED 0 06/09/2021 06/12/2022 Discontinuedtake 1 capsule by mouth twice daily as needed carBAMazepine (CARBATROL) 200 mg 12 hr capsule Take 1 capsule (200 mg total) by mouth 2 (two) timesa day as needed. Activetake 2 tablets by mouth in the morning, then take 2 tablets by mouth every twelve hours, then take 2 tablets by mouth at bedtimecarBAMazepine XR (TEGretol XR) 200 mg 12 hr tablet Take 2 tablets (400 mg total) by mouth in the morning and 2 tablets (400 mg total) at noon and 2 tablets (400 mg total) before bedtime. ActivecarBAMazepine (TEGretol) 200 MG tablet PRN Activetake 4 tablets by mouth once daily as needed carBAMazepine (TEGRETOL-XR) 100 MG SR tablet Take 400 mg by mouth daily as needed 0 ActiveComment on above:Take 1 tablet by mouth twice daily.TAKE 1 TABLET BY MOUTH EVERY TWELVE HOURS NEEDEDTake 2 tablets by mouth three times daily. cephalexin 500 mg oral capsule (1 source)Cephalosporin Antibacterialtake 1 capsule by mouth four times daily cephALEXin (KEFLEX) 500 MG capsule Take 500 mg by mouth 4 times daily 0 Active ciprofloxacin 3 mg/ml / dexamethasone 1 mg/ml otic suspension (1 source)Corticosteroid, Quinolone Antimicrobialciprofloxacin-dexamethasone (CIPRODEX) 0.3-0.1 % otic suspension Place 4 drops into the left ear 2 times daily 0 Activedesmopressin acetate 0.1 mg oral tablet (20 sources)Vasopressin Analog, Factor VIII ActivatorStart: 08-21-2024 End: 34-62-3512adia 2 tablets by mouth in the morning, then take 2 tablets by mouth at bedtimedesmopressin (DDAVP) 0.1 mg tablet Take 2 tablets (200 mcg total) by mouth in the morning and 2 tablets (200 mcg total) before bedtime. 08/21/2024 08/21/2025 ActiveStart: 98-09-6882ihyszshrfdrk (DDAVP) 0.2 MG tablet Take 100 mcg by mouth in the morning and 100 mcg at noon and 100mcg in the evening. 03/25/2023 ActiveStart: 05-20-2019 End: 53-72-5303ugsa 1 tablet by mouth once dailydesmopressin acetate (DDAVP) 0.2 mg tablet Take 1 tablet by mouth once daily. 0 05/20/2019 12/17/2022 Discontinued (Dosage adjustment)Start: 79-50-3906rtez 1 tablet by mouth three times dailydesmopressin acetate (DDAVP) 0.1 mg tablet Take 0.1 mg by mouth three times daily. 11/18/2018 ActiveComment on above:Take 1 tablet by mouth once daily.Take 0.1 mg by mouth three times daily.dexamethasone 4 mg oral tablet (20 sources)CorticosteroidStart: 91-01-7043fvzXXWGIaspvc (DECADRON) 4 mg tablet Take 1 tablet (4 mg total) by mouth in the morning and 1 tablet (4 mg total) at noon and 1 tablet (4 mg total) in the evening. Take with meals. 08/13/2024 ActiveStart: 39-02-7675azhQDRQKcvwem (DECADRON) 4 mg/mL injection 1 mL (4 mg total) every 6 (six) hours. 11/20/2023 ActiveComment on above:INJECT 1ML (4MG) INTRAMUSCULARLY EVERY 6 HOURS NEEDED FOR ADRENAL STRESS, USE WHEN VOMITING OR DIARRHEA PREVENTS USE OF THE ORAL DOSE.diazePAM 5 mg oral tablet (2 sources)BenzodiazepineStart: 12-68-8975ierhcrdl (VALIUM) 5 MG tablet 10 mg 2 times daily as needed for Sleep 0 04/27/2015 Active End: 88-01-5077sont 1 tablet by mouth twice dailydiazePAM (VALIUM) 10 mg tablet Indications: muscle spasm Take 10 mg by mouth 2 (two) times a day Indications: Muscle Spasm. 10/09/2024 Discontinued (Therapy completed)eletriptan 40 mg oral tablet (20 sources)Serotonin-1b and Serotonin-1d Receptor AgonistStart: 10-09-2024 End: 87-75-2783luvisjhjvt (RELPAX) 40 mg tablet Indications: Migraine with aura and without status migrainosus, not intractable Take 1 tablet (40 mg total) by mouth once as needed for migraine. May repeat in 2 hours if unresolved. Do not exceed 80 mg in 24 hours. 9 tablet 1 10/09/2024 Activeenteric contrast (will be provided with radiology test) (1 source)Start: 06-08-2025 End: 27-12-7312ahwdsnx contrast (will be provided with radiology test) For CT ABD/PEL W IVCON Routine order Administer, As Directed One Time Only, via Oral, Rectal, both Oral and Rectal, Enteric Tube, Stoma or Indwelling Catheter, Enteric Contrast as designated per enteric contrast guidelines 1 each 06/08/2025 06/09/2025 ActiveEst Estrogens-Methyltest (Estratest F.S.) 1.25-2.5 MG tablet (2 sources)Start: 09-23-2024 End: 28-96-3416rcxh 1 tablet by mouth once dailyEst Estrogens-Methyltest (Estratest F.S.) 1.25-2.5 MG tablet Indications: Postmenopausal HRT (hormone replacement therapy) Take 1 tablet by mouth Daily 90 tablet 3 09/23/2024 12/22/2024 Activeestrogens, esterified (intermediate) 1.25 mg / methylTESTOSTERone 2.5 mg oral tablet (20 sources)Androgentake 1 tablet by mouth once in the morningestrogens- methylTESTOSTERone (EEMT,COVARYX) 1.25-2.5 mg per tablet Indications: vasomotor symptoms associated with menopause Take 1 tablet by mouth in the morning. Indications: change of life signs. Activetake 1 tablet by mouth once daily esterified estrogens-methylTESTOSTERone (ESTRATEST) 1.25-2.5 mg per tablet Take 1 tablet by mouth once daily. Active End: 21-29-0267dgkj 1.25-2.5 mg by mouth in the morningestrogens, conjugated,- methylTESTOSTERone (EEMT,Covaryx) 1.25-2.5 MG tablet Take 1 tablet by mouth in the morning. 09/23/2024 DiscontinuedComment on above:Take 1 tablet by mouth once daily.1 ml evolocumab 140 mg/ml auto-injector (20 sources)PCSK9 InhibitorStart: 70-55-0879whskkp 140 mg by subcutaneous injection every other weekREPATHA SURECLICK 140 mg/mL pen injector INJECT 140 MG UNDER THE SKIN EVERY 2 WEEKS 01/23/2021 Activeevolocumab (REPATHA SYRINGE) 140 mg/mL syringe Inject 140 mg under the skin every 14 (fourteen) days. Active inject 140 mg by subcutaneous injection in the morningevolocumab (REPATHA SYRINGE) 140 mg/mL syringe Inject 140 mg under the skin in the morning. Active Comment on above:INJECT 140 MG UNDER THE SKIN EVERY 2 WEEKSezetimibe 10 mg oral tablet (20 sources)Dietary Cholesterol Absorption InhibitorStart: 75-30-6769lmws 1 tablet by mouth once daily in the morningezetimibe (ZETIA) 10 mg tablet Take 10 mg by mouth every morning. 02/19/2022 ActiveComment on above:Take 10 mg by mouth every morning.hydrocortisone 0.025 mg/mg topical ointment (7 sources)CorticosteroidStart: 02-09-2025 End: 73-78-2979lkopvdvipiquwd 2.5 % ointment Indications: External hemorrhoid, thrombosed Apply to affected area two times a day. 28 g 1 02/09/2025 03/11/2025 Active End: 41-64-1282tqpp 1 tablet by mouth twice dailyhydrocortisone (CORTEF) 20 mg tablet Indications: rosemary's Take 20 mg by mouth 2 (two) times a day Indications: rosemary's. 10/09/2024 Discontinued (Therapy completed) hydroxychloroquine sulfate 200 mg oral tablet (13 sources)Antimalarial, Antirheumatic AgentStart: 80-57-7338obpl 1 tablet by mouth in the morninghydroxychloroquine (PLAQUENIL) 200 mg tablet Take 1 tablet (200 mg total) by mouth in the morning. 05/11/2025 Activeiv contrast (will be provided with radiology test) (1 source)Start: 06-08-2025 End: 15-25-7376xb contrast (will be provided with radiology test) CT ABD/PEL - Inject, intravenously, once for 1 dose.No IV access, insert saline lock prior to the beginning of sedation, infusion, injection of imaging exam. Discontinue saline lock post exam. If Pt. has a central line or IVAD, may access for adminis tration according to line specific nursing protocol. Once exam is complete flush line and de-accessaccording to line specific nursing protocol in theCT contrast administration guidelines link. 1 each 06/08/2025 06/09/2025 Activeketorolac tromethamine 10 mg oral tablet (20 sources)Nonsteroidal Anti-inflammatory Drug, Cyclooxygenase InhibitorStart: 50-41-9475nywn 1 tablet by mouth every six hours as needed for painketorolac (TORADOL) 10 mg tablet Indications: Fibromyalgia Take 1 tablet (10 mg total) by mouth every 6 (six) hours as needed for pain. 20 tablet 1 05/19/2025 Active Start: 73-89-2546uxyxlzwsh (TORADOL) 60 mg/2 mL solution Inject 2 mL (60 mg total) into the appropriate muscle once.04/06/2024 ActiveStart: 12-24-2023 End: 54-83-1982hmxwpe 2 mL by intramuscular injection oncekeTORolac (TORADOL) 60 mg/2 mL soln INJECT 2ML INTRAMUSCULARLY ONE TIME ONLY FOR 1 DOSE 15 mL 3 03/19 ActiveStart: 03-22-2023 End: 13-78-8161kmizxg 2 mL by intramuscular injection oncekeTORolac (TORADOL) 60 mg/2 mL soln Inject 2 mL intramuscularly one time only for 1 dose. 2 mL 11 03/22/2023 Activeinject 2 mL by intramuscular injection every six hours as neededketorolac (Toradol) 60 MG/2ML solution injection INJECT 2 ML INTRAMUSCULARLY EVERY 6 HOURS NEEDED ActiveComment on above:Inject 2 mL intramuscularly one time only for 1 dose.INJECT 2ML INTRAMUSCULARLY ONE TIME ONLY FOR 1 DOSElevothyroxine sodium 0.05 mg oral tablet (20 sources)l-ThyroxineStart: 51-29-7554baqxjkqyqdkgv (SYNTHROID) 50 mcg tablet TAKE 1 TABLET BY MOUTH SATURDAY THROUGH SATURDAY. SKIP SATURDAY. 11/08/2023 Active Start: 12-24-2022 End: 04-49-8759frxatcrizousq (SYNTHROID) 50 mcg tablet TAKE 1 TABLET BY MOUTH SATURDAY THROUGH SATURDAY. SKIP SATURDAY. 11/08/2023 Active End: 15-30-7835ecfsohgcnzevt (SYNTHROID) 88 MCG tablet Indications: hypothyroidism Take 50 mcg by mouth in the morning. Indications: a condition with low thyroid hormone levels. 10/09/2024 Discontinued (Error)Comment on above:Take 50 mcg by mouth daily before breakfast. Take 50 mcg by mouth every morning.TAKE 1 TABLET BY MOUTH SATURDAY THROUGH SATURDAY. SKIP SATURDAY.liothyronine sodium 0.005 mg oral tablet (20 sources)l-TriiodothyronineStart: 58-14-7912lukx 1 tablet by mouth twice dailyliothyronine (CYTOMEL) 5 mcg tablet Take 5 mcg by mouth twice daily. 10/30/2022 ActiveComment on above:Take 5 mcg by mouth twice daily.metoclopramide 10 mg oral tablet (1 source)Dopamine-2 Receptor AntagonistStart: 08-87-4121cyiwpofwuajtsm (REGLAN) 10 MG tablet 0 06/01/2015 Activemetoprolol tartrate 25 mg oral tablet (1 source)beta-Adrenergic BlockerStart: 30-85-3141swqe 1 tablet by mouth twice dailymetoprolol tartrate (LOPRESSOR) 25 MG tablet Take 1 tablet by mouth 2 times daily 60 tablet 3 07/24/2017 ActivemetroNIDAZOLE 500 mg oral tablet (13 sources)Nitroimidazole AntimicrobialStart: 76-41-7231ckau 1 tablet by mouth three times dailymilnacipran hydrochloride 12.5 mg oral tablet (20 sources)Serotonin and Norepinephrine Reuptake InhibitorStart: 07-06-2015 End: 74-24-3444ZHABCSY 12.5 MG TABS 1 07/06/2015 Activemontelukast 10 mg oral tablet (1 source)Leukotriene Receptor AntagonistStart: 70-08-5603kqbzylqbjmd (SINGULAIR) 10 MG tablet 0 06/27/2015 ActiveNaltrexone (18 sources)Opioid Antagonisttake 2 mg by mouth in the morningnaltrexone 1.5 mg capsule Take 2 mg by mouth in the morning. Activenaratriptan 2.5 mg oral tablet (1 source)Serotonin-1b and Serotonin-1d Receptor Agonisttake 1 tablet by mouth once as needed, then take 1 tablet by mouth every four hours as needed naratriptan (AMERGE) 2.5 MG tablet Take 2.5 mg by mouth once as needed for Migraine. 2.5 mg at onset of headache, may repeat in 4 hours if needed 0 Active omeprazole 40 mg delayed release oral capsule (20 sources)Proton Pump InhibitorStart: 07-01-2025 End: 88-12-3340etdg 1 capsule by mouth once daily before breakfastomeprazole (PriLOSEC) 40 mg capsule Take 1 capsule (40 mg total) by mouth every morning before breakfast. 30 capsule 5 07/01/2025 ActiveComment on above:Take 40 mg by mouth as needed.ondansetron 8 mg oral tablet (20 sources)Serotonin-3 Receptor AntagonistStart: 10-09-2024 End: 81-24-2100khzg 1 tablet by mouth every eight hours as needed for nausea ondansetron (ZOFRAN) 8 mg tablet Indications: Nausea and vomiting, unspecified vomiting type , Migraine with aura and without status migrainosus, not intractable Take 1 tablet (8 mg total) by mouth every 8 (eight) hours as needed for nausea or vomiting. 20 tablet 1 07/01/2025 ActiveStart: 41-34-7297meyq 1 tablet by mouth every eight hours as needed for nauseaondansetron (ZOFRAN ODT) 4 MG disintegrating tablet Take 1 tablet by mouth every 8 hours as needed for Nausea 20 tablet 0 01/26/2017 Activeondansetron (ZOFRAN) 8 mg tablet Take by mouth three times a day as needed. ActiveComment on above:Take by mouth three times a day as needed.oxyCODONE hydrochloride 5 mg oral tablet (1 source)Opioid AgonistStart: 07-30-2024 End: 45-50-5518zrgg 1 tablet by mouth every eight hours as needed for pain oxyCODONE IR (ROXICODONE) 5 mg immediate release tablet Indications: Acute post- operative pain Take1 tablet by mouth every 8 hours as needed for pain for up to 3 days. 5 tablet 07/30/2024 08/02/2024ctivepregabalin 50 mg oral capsule (20 sources)Start: 08-12-2025 End: 07-10-6083lvuu 2 capsules by mouth three times dailypregabalin (LYRICA) 50 mg capsule Indications: Fibromyalgia , Trigeminal neuralgia Take 2 capsules (100 mg total) by mouth 3 (three) times a day. 540 capsule 08/30/2025 ActiveStart: 04-22-2025 End: 74-24-1587wiqi 2 capsules by mouth three times dailypregabalin (LYRICA) 50 mg capsule Indications: Fibromyalgia , Trigeminal neuralgia Take 2 capsules (100 mg total) by mouth 3 (three) times a day for 90 days. 540 capsule 04/22/2025 07/21/2025 ActiveStart: 10-09-2024 End: 37-81-4982kezp 2 capsules by mouth three times dailypregabalin (LYRICA) 50 mg capsule Indications: Fibromyalgia Take 2 capsules (100 mg total) by mouth3 (three) times a day for 30 days. 180 capsule 2 01/14/2025 02/13/2025 Active Start: 06-12-2022 End: 72-94-1290svvw 4 capsules by mouth twice dailypregabalin (LYRICA) 50 mg capsule Indications: Chronic migraine without aura, with intractable migraine, so stated, with status migrainosus Take 4 capsules by mouth twice daily for 30 days. 240 capsule 1 06/12/2022 01/06/2024 Discontinued End: 38-61-3156jcxm 1 capsule by mouth in the morning, then take 1 capsule by mouth at bedtimepregabalin (LYRICA) 100 mg capsule Take 1 capsule (100 mg total) by mouth in the morning and 1 capsule (100 mg total) before bedtime. 10/09/2024 Discontinued (Duplicate Listing) End: 33-07-4563somu 1 capsule by mouth twice dailyPregabalin (LYRICA) 200 mg capsule Take 200 mg by mouth twice daily. 0 05/28/2024 DiscontinuedComment on above:Take 200 mg by mouth twice daily.Take 4 capsules by mouth twice daily for 30 days.promethazine hydrochloride 25 mg oral tablet (20 sources)PhenothiazineStart: 10-09-2024 End: 44-02-8874axcv 0.5 tablet by mouth every eight hours as needed for nausea promethazine (PHENERGAN) 25 mg tablet Indications: Nausea and vomiting, unspecified vomiting type ,Migraine with aura and without status migrainosus, not intractable Take 0.5 tablets (12.5 mg total)by mouth every 8 (eight) hours as needed for nausea or vomiting. Oral or injectable 30 tablet 1 07/01/2025 ActiveStart: 05-29-2024 End: 50-93-2763msvduvcnqeya 12.5 mg tab(s) (PHENERGAN)Start: 06-01-2015 End: 13-61-2671bsbiudjpammq (PHENERGAN) 25 MG tablet 0 06/01/2015 Active sodium,calcium,mag,pot oxybate (XYWAV) 0.5 gram/mL soln oral liquid (13 sources)Start: 06-23-2025 End: 39-80-0829lgbyhr,calcium,mag,pot oxybate (XYWAV) 0.5 gram/mL soln oral liquid Indications: Primary narcolepsywith cataplexy (HCC) Take 4.5 grams at bedtime and 4.5 grams 2.5-4 hours after (9 grams total per night) 540 mL 5 06/23/2025 11/13/2025 ActiveStart: 05-31-2025 End: 38-24-7016jyuurm,calcium,mag,pot oxybate (XYWAV) 0.5 gram/mL soln oral liquid Indications: Primary narcolepsywith cataplexy (HCC) Take 4.5 grams at bedtime and 4.5 grams 2.5-4 hours after (9 grams total per night) 540 mL 5 05/31/2025 10/21/2025 ActiveStart: 03-13-2023 End: 41-67-4343fopdpn,calcium,mag,pot oxybate (XYWAV) 0.5 gram/mL soln oral liquid Indications: Primary narcolepsywith cataplexy Take 4.5 grams at bedtime and 4.5 grams 2.5-4 hours after (9 grams total per night) 270 mL 5 03/13/2023 08/03/2023 ExpiredStart: 03-13-2023 End: 10-43-8967gvvdaf,calcium,mag,pot oxybate (XYWAV) 0.5 gram/mL soln oral liquid Indications: Primary narcolepsywith cataplexy Take 4.5 grams at bedtime and 4.5 grams 2.5-4 hours after (9 grams total per night) 270 mL 5 03/13/2023 08/03/2023 ActiveComment on above:Take 4.5 grams at bedtime and 4.5 grams 2.5-4 hours after (9 grams total per night)sucralfate 1000 mg oral tablet (1 source)Aluminum ComplexStart: 59-00-0001wwvvnvqyig (CARAFATE) 1 GM tablet 0 06/01/2015 ActiveSUMAtriptan 100 mg oral tablet (20 sources)Serotonin-1b and Serotonin-1d Receptor Agonisttake 1 tablet by mouth once as neededSUMAtriptan (IMITREX) 100 mg tablet Take 1 tablet (100 mg total) by mouth as needed for migraine (may repeat x1 as one hr). May repeat in 2 hours if unresolved. Do not exceed 200 mg in 24 hours. ActiveSUMAtriptan (IMITREX) 100 mg tablet Take 100 mg by mouth. ActiveComment on above:Take 100 mg by mouth. tacrolimus 0.001 mg/mg topical ointment (20 sources)Calcineurin Inhibitor ImmunosuppressantStart: 08-27-2024 End: 47-60-3822uezctthnhm (PROTOPIC) 0.1 % ointment Apply 1 Application topically in the morning and 1 Applicationbefore bedtime. 08/27/2024 08/27/2025 ActivetiZANidine 4 mg oral capsule (20 sources)Central alpha-2 Adrenergic AgonistStart: 52-72-6556aqxw 1 capsule by mouth twice daily as needed for muscle spasmstiZANidine (ZANAFLEX) 4 mg capsule Indications: Fibromyalgia Take 1 capsule (4 mg total) by mouth 2(two) times a day as needed for muscle spasms. 60 capsule 2 05/19/2025 ActiveStart: 07-24-2016 End: 74-33-9143ahWTWftwry (ZANAFLEX) 4 mg tablet Take 4 mg by mouth as needed. 07/24/2016 Activetake 1 tablet by mouth twice daily as needed for muscle spasms tiZANidine (ZANAFLEX) 4 mg tablet Indications: muscle spasm Take 1 tablet (4 mg total) by mouth 2 (two) times a day as needed for muscle spasms Indications: muscle spasm. Activetake 1 tablet by mouth every twenty-four hours as needed tiZANidine (Zanaflex) 4 MG tablet Take 4 mg by mouth Daily as needed. Active Comment on above:Take 4 mg by mouth as needed.topiramate 100 mg oral tablet (1 source)take 1 tablet by mouth twice dailytopiramate (TOPAMAX) 100 MG tablet Take 100 mg by mouth 2 times daily. 0 ActiveXYWAV 0.5 gram/mL soln oral liquid (20 sources)Start: 10-05-2024 End: 70-84-5911nohx 9 mL by mouth at bedtimeXYWAV 0.5 gram/mL soln oral liquid Indications: Primary narcolepsy with cataplexy (HCC) Take 9 mL by mouth at bedtime and 4 hours after. 540 mL 5 10/05/2024 04/03/2025 ActiveStart: 10-05-2024 End: 87-86-1168inil 9 mL by mouth at bedtimeXYWAV 0.5 gram/mL soln oral liquid Indications: Primary narcolepsy with cataplexy Take 9 mL by mouth at bedtime and 4 hours after. 540 mL 5 10/05/2024 04/03/2025 ActiveStart: 10-05-2024 End: 41-91-2371ljtd 9 mL by mouth at bedtimeXYWAV 0.5 gram/mL soln oral liquid Indications: Primary narcolepsy with cataplexy Take 9 mL by mouth at bedtime and 4 hours after. 540 mL 5 10/05/2024 10/05/2024 DiscontinuedStart: 2024 End: 44-60-6274xtvn 9 mL by mouth at bedtimeXYWAV 0.5 gram/mL soln oral liquid Indications: Primary narcolepsy with cataplexy Take 9 mL by mouth at bedtime and 4 hours after. 540 mL 5 2024 10/05/2024 DiscontinuedStart: 2024 End: 26-38-8674xrax 9 mL by mouth at bedtimeXYWAV 0.5 gram/mL soln oral liquid Indications: Primary narcolepsy with cataplexy Take 9 mL by mouth at bedtime and 4 hours after. 540 mL 5 2024 10/14/2024 ActiveStart: 12-13-2023 End: 24-16-2281ALGCX 0.5 gram/mL soln oral liquidStart: 43-23-2409RTSSY 0.5 gram/mL soln oral liquidXYWAV 0.5 gram/mL solution (20 sources)Start: 53-57-4463ejti 4.5 g by mouth every four hours at bedtime XYWAV 0.5 gram/mL solution Take 4.5 mL by mouth nightly. 4.5 grams at bedtime repeat In 4hours 10/05/2024 ActiveStart: 42-11-3352ZILQU 0.5 gram/mL solution Take 4.5 mL by mouth in the morning and at bedtime. 4.5 grams 9 total 10/05/2024 ActiveXywav 500 MG/ML solution (4 sources)Start: 16-87-3573Zsamv 500 MG/ML solution 09/21/2022 Activezolpidem tartrate 12.5 mg extended release oral tablet (2 sources)gamma-Aminobutyric Acid-ergic AgonistStart: 69-16-8391opxhegdv (AMBIEN CR) 12.5 MG CR tablet 1 07/04/2015 Active End: 14-21-4622hjpbxliy (AMBIEN) 10 mg tablet Take 10-15 mg by mouth nightly as needed for sleep. 10/09/2024 Discontinued (Therapy completed) Completed/Discontinued Medications MedicationDrug Class(es)DatesSig (Normalized)Sig (Original)acetaminophen 500 mg oral tablet (6 sources)Start: 07-30-2024 End: 39-90-8832wgip 2 tablets by mouth every six hours as neededacetaminophen (TYLENOL EXTRA STRENGTH) 500 mg tablet Take 2 tablets by mouth every 6 hours as needed for pain. 30 tablet 07/30/2024 08/29/2024 Expiredamoxicillin 500 mg oral capsule (2 sources)Penicillin-class AntibacterialStart: 06-24-2024 End: 40-61-3221wuiq 1 capsule by mouth twice dailyamoxicillin (AMOXIL) 500 mg capsule Indications: Other chronic suppurative otitis media of both ears Take 1 capsule by mouth two times a day for 7 days. 14 capsule 06/24/2024 07/01/2024 Expiredarmodafinil 150 mg oral tablet (17 sources)Start: 07-13-2022 End: 13-02-1387idncczxzpui (NUVIGIL) 150 mg tab Indications: Primary hypersomnia Take one tablet by mouth upon awakenings 30 tablet 2 07/13/2022 01/25/2023 Discontinued (Course of therapy completed)Comment on above:Take one tablet by mouth upon awakeningsonabotulinumtoxina 200 unt injection (19 sources)Acetylcholine Release InhibitorStart: 07-26-2025 End: 15-90-7927njcqawdqusca toxin type A 200 Units injection (BOTOX)Start: 07-26-2025 End: 01-07-2650rqlwyk 1 dose by intramuscular injection [id number] Units, INTRAMUSCULAR, ONCE, 1 dose, On Sat07/26/25 at 1500, This record documents the total doseprovided to patient. See progress note for specific locations and amounts administered.Start: 04-27-2025 End: 78-86-4700kzjumripslzs toxin type A 200 Units injection (BOTOX)Start: 12-21-2024 End: 26-04-5934bdsfysgvyzfu toxin type A 200 Units injection (BOTOX)Start: 12-21-2024 End: 41-17-0124tscyzr 1 dose by intramuscular injection [id number] Units, INTRAMUSCULAR, ONCE, 1 dose, On Sat12/21/24 at 1530, This record documents the total doseprovided to patient. See progress note for specific locations and amounts administered.Start: 09-21-2024 End: 17-06-9469uylcnszjtlzv toxin type A 200 Units injection (BOTOX)Start: 09-21-2024 End: 81-11-6381gcwciw 1 dose by intramuscular injection [id number] Units, INTRAMUSCULAR, ONCE, 1 dose, On Sat09/21/24 at 1100, This record documents the total dose provided to patient. See progress note for specific locations and amounts administered.Start: 07-10-2024 End: 91-83-1865cjierbvveksr toxin type A 200 Units injection (BOTOX)Start: 07-10-2024 End: 97-79-1637nxyeyz 1 dose by intramuscular injection [id number] Units, INTRAMUSCULAR, ONCE, 1 dose, On Sat07/10/24 at 1000, This record documents the total dose provided to patient. See progress note for specific locations and amounts administered.Start: 06-29-2024 End: 53-15-9306ocpnpfcouzwh toxin type A 200 Units injection (BOTOX)Start: 06-29-2024 End: 27-13-8062mdtdxe 1 dose by intramuscular injection [id number] Units, INTRAMUSCULAR, ONCE, 1 dose, On Sat06/29/24 at 1630, This record documents the total dose provided to patient. See progress note for specific locations and amounts administered.Start: 04-06-2024 End: 70-78-5084tjlsjlpjeemg toxin type A 200 Units injection (BOTOX)Start: 04-06-2024 End: 88-52-7516iycabeaxpzdv toxin type A 200 Units injection (BOTOX)Start: 12-30-2023 End: 11-31-5086hrhuvkmgxwty toxin type A 200 Units injection (BOTOX)Start: 07-23-2023 End: 81-33-8210aujnuitmvktu toxin type A 200 Units injection (BOTOX)Start: 03-22-2023 End: 75-26-5271tqtcevxscfxv toxin type A 200 Units injection (BOTOX)Start: 12-17-2022 End: 18-46-0955grgdogschmea toxin type A 200 Units injection (BOTOX)Start: 09-17-2022 End: 50-02-7372mhnpnhzpdxgu toxin type A 200 Units injection (BOTOX)12 hr buPROPion hydrochloride 100 mg extended release oral tablet (4 sources)Aminoketone End: 80-48-0285paBLLUtex SR (WELLBUTRIN SR) 100 mg 12 hr tablet bupropion HCl SR 100 mg tablet,12 hr sustained-release 0 04/06/2024 Discontinued (Other)Comment on above:bupropion HCl SR 100 mg tablet,12 hr sustained-releasecalcium chloride 0.0014 meq/ml / potassium chloride 0.004 meq/ml / sodium chloride 0.103 meq/ml / sodium lactate 0.028 meq/ml injectable solution (1 source)Start: 05-29-2024 End: 40-41-3170lxoaaekc ringers iv infusionciprofloxacin 500 mg oral tablet (15 sources)Quinolone AntimicrobialStart: 06-22-2023 End: 04-16-9227xedilwgvkbqco HCl (CIPRO) 500 mg tablet Take 500 mg by mouth twice daily. Twice daily for 10 days. Started Saturday per patient 0 06/22/2023 07/05/2023 Discontinued (Course of therapy completed)Start: 09-68-3509elmp 1 tablet by mouth every two hoursComment on above:Take 500 mg by mouth twice daily. Twice daily for 10 days. Started Saturday per patienthydrOXYzine hydrochloride 25 mg oral tablet (20 sources)Antihistamine End: 35-73-0494cvoyQPIbkex HCl (ATARAX) 25 mg tablet Take 25 mg by mouth as needed. 07/13/2025 DiscontinuedhydrOXYzine HCl (ATARAX) 25 mg tablet Take 25 mg by mouth as needed. Activetake 1 capsule by mouth three times daily as needed hydrOXYzine (VISTARIL) 25 MG capsule Take 25 mg by mouth 3 times daily as needed for Itching 0 ActiveComment on above:Take 25 mg by mouth three times a week.Take 25 mg by mouth as needed.lisdexamfetamine dimesylate 70 mg oral capsule (20 sources)Central Nervous System StimulantStart: 05-23-2025 End: 76-49-5999TOWXZNC 70 mg capsule Indications: Narcolepsy and cataplexy (HCC) Take (1) capsule by mouth upon awakening Patient should start on May 23, 2025. 90 capsule 05/23/2025 07/13/2025 DiscontinuedStart: 02-23-2025 End: 84-56-5068zapderznabulksvg (VYVANSE) 70 mg capsule Indications: Narcolepsy and cataplexy Take (1) capsule by mouth upon awakening Patient should start on February 23, 2025. 30 capsule 02/23/2025 02/05/2025 Discontinued (Course of therapy completed)Start: 02-05-2025 End: 68-13-4319qrtrngiaruukumyk (VYVANSE) 70 mg capsule Indications: Narcolepsy and cataplexy (HCC) Take (1) capsule by mouth upon awakening 90 capsule 02/05/2025 05/05/2025 ActiveStart: 01-25-2025 End: 20-71-9448hdjt 1 capsule by mouth once dailylisdexamfetamine (VYVANSE) 70 mg capsule Indications: Narcolepsy and cataplexy Take 1 capsule by mouth once daily for 30 days. Patient should start on January 25, 2025. 30 capsule 01/25/2025 01/13/2025Discontinued (Course of therapy completed)Start: 12-11-2024 End: 94-86-1573kfmp 1 capsule by mouth once dailylisdexamfetamine (VYVANSE) 60 mg capsule Indications: Narcolepsy with cataplexy Take 1 capsule by mouth once daily for 30 days. Patient should start on December 11, 2024. 30 capsule 12/11/2024 11/26/2024 Discontinued (Course of therapy completed)Start: 10-12-2024 End: 81-94-0859sjzo 1 capsule by mouth once dailylisdexamfetamine (VYVANSE) 60 mg capsule Indications: Narcolepsy with cataplexy Take 1 capsule by mouth once daily for 30 days. Patient should start on November 11, 2024. 30 capsule 11/11/2024 11/26/2024 Discontinued (Course of therapy completed)Start: 07-09-2024 End: 66-90-7086yxty 1 capsule by mouth in the morninglisdexamfetamine (VYVANSE) 70 mg capsule Take 1 capsule (70 mg total) by mouth in the morning. 07/09/2024 ActiveStart: 10-02-2023 End: 36-33-5527ywfs 1 capsule by mouth in the morninglisdexamfetamine (VYVANSE) 50 mg capsule Take 1 capsule (50 mg total) by mouth in the morning. 07/09/2024 ActiveStart: 04-10-2023 End: 21-94-7706uuft 1 capsule by mouth once dailylisdexamfetamine (VYVANSE) 40 mg capsule Indications: Primary narcolepsy with cataplexy Take 1 capsule by mouth once daily for 30 days. Do not start before June 09, 2023. 30 capsule 0 06/09/2023 01/06/2024 DiscontinuedStart: 02-08-2023 End: 55-68-4636fvib 1 capsule by mouth once dailylisdexamfetamine (VYVANSE) 50 mg capsule Indications: Primary narcolepsy with cataplexy Take 1 capsule by mouth once daily for 30 days. Do not start before April 09, 2023. 30 capsule 0 04/09/2023 07/05/2023 Discontinued (Course of therapy completed)Start: 01-25-2023 End: 94-52-3668hubvknzngzutolsh (VYVANSE) 30 mg capsule Indications: Primary narcolepsy with cataplexy Take one capsule by mouth upon awakening 30 capsule 0 01/25/2023 02/08/2023 Discontinued (Course of therapy completed)Comment on above:Take one capsule by mouth upon awakeningTake 1 capsule by mouth once daily for 30 days.Take 1 capsule by mouth once daily for 30 days. Do not start before March 10, 2023.Take 1 capsule by mouth once daily for 30 days. Do not start before April 09, 2023.Take one tablet by mouth upon awakeningTake 1 capsule by mouth once daily for 30 days. Do not start before June 09, 2023.Take 1 capsule by mouth once daily for 30 days. Do not start before August 04, 2023.Take 1 capsule by mouth once daily for 30 days. Do not start before September 03, 2023. Take 1 capsule by mouth once daily for 30 days. Do not start before May 10, 2023.Take 1 capsule by mouth once daily for 90 days. Do not start before November 01, 2023.Take 1 capsule by mouth once daily for 30 days. Do not start before February 05, 2024.Take 1 capsule by mouth once daily for 30 days. 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 15 g 2 01/01/2022 01/25/2023 Discontinued (Course of therapy completed)Comment on above:Apply to affected area three times daily.ofloxacin 3 mg/ml otic solution (20 sources)Quinolone AntimicrobialStart: 06-24-2024 End: 54-67-4255hjhc 3 drop(s) into the eye(s) twice dailyofloxacin (FLOXIN) 0.3 % otic solution Indications: Other chronic suppurative otitis media of both ears Use 3 Drops in the ears two times a day for 14 days. May substitute ofloxacin ophthalamic pending availability 5 mL 1 06/24/2024 07/08/2024 ExpiredStart: 08-23-2021 End: 71-33-7269gidzzfwih (FLOXIN) 0.3 % otic solution Use 5 Drops in both ears twice daily. 10 mL 4 08/23/2021 01/25/2023 Discontinued (Course of therapy completed)Comment on above:Use 5 Drops in both ears twice daily.pantoprazole 40 mg delayed release oral tablet (1 source)Proton Pump Inhibitor End: 14-27-6622hpyx 1 tablet by mouth in the morning, then take 1 tablet by mouth at bedtimepantoprazole (PROTONIX) 40 mg EC tablet Indications: gastroesophageal reflux disease Take 1 tablet (40 mg total) by mouth in the morning and 1 tablet (40 mg total) before bedtime. Indications: gastroesophageal reflux disease. 10/09/2024 Discontinued (Error)pitolisant 17.8 mg oral tablet (12 sources)Start: 10-24-2022 End: 61-46-7594ieuv 2 tablets by mouth once dailyWAKIX 17.8 mg tablet Indications: Narcolepsy with cataplexy TAKE 2 TABLETS BY MOUTH 1 TIME A DAY UPON AWAKENING. 60 tablet 11 11/14/2022 01/25/2023 Discontinued (Side Effects)Comment on above:Take 2 tablets (35.6 mg) by mouth once daily.TAKE 2 TABLETS BY MOUTH 1 TIME A DAY UPON AWAKENING.polyethylene glycol 3350 92707 mg powder for oral solution (11 sources)Osmotic LaxativeStart: 07-30-2024 End: 87-58-4712bqkwijsrxiey glycol 3350 (MIRALAX) 17 gram/dose powder Take 17 g by mouth once daily. Dissolve dosein 4 - 8 ounces of liquid and take as directed. 507 g 07/30/2024 10/12/2024 Discontinued (Course oftherapy completed) pravastatin sodium 20 mg oral tablet (2 sources)HMG-CoA Reductase Inhibitor End: 98-60-1153flpd 1 tablet by mouth once dailypravastatin (PRAVACHOL) 20 mg tablet Indications: hyperlipidemia Take 20 mg by mouth daily Indications: HYPERLIPIDEMIA. 10/09/2024 Discontinued (Alternate therapy) sodium,calcium,mag,pot oxybate (XYWAV) 0.5 gram/mL soln (20 sources)Start: 10-24-2022 End: 11-04-5625qzhyif,calcium,mag,pot oxybate (XYWAV) 0.5 gram/mL soln Indications: Primary narcolepsy with cataplexy Take 4.5 grams at bedtime and 4.5 grams 2.5-4 hours after (9 grams total per night) 270 mL 5 10/24/2022 03/12/2023 DiscontinuedStart: 10-24-2022 End: 31-54-0879syffxz,calcium,mag,pot oxybate (XYWAV) 0.5 gram/mL soln Indications: Primary narcolepsy with cataplexy Take 4.5 grams at bedtime and 4.5 grams 2.5-4 hours after (9 grams total per night) 270 mL 5 10/24/2022 03/17/2023 ActiveStart: 10-09-2022 End: 36-86-0131rcykir,calcium,mag,pot oxybate (XYWAV) 0.5 gram/mL soln Indications: Primary narcolepsy with cataplexy Take 4.5 grams at bedtime and 4.5 grams 2.5-4 hours after (9 grams total per night) 270 mL 5 10/09/2022 10/24/2022 DiscontinuedStart: 10-09-2022 End: 83-74-7793eppsyj,calcium,mag,pot oxybate (XYWAV) 0.5 gram/mL soln Indications: Primary narcolepsy with cataplexy Take 4.5 grams at bedtime and 4.5 grams 2.5-4 hours after (9 grams total per night) 270 mL 5 10/09/2022 03/02/2023 ActiveStart: 09-21-2022 End: 20-81-8540jtcgnp,calcium,mag,pot oxybate (XYWAV) 0.5 gram/mL soln Indications: Primary narcolepsy with cataplexy Take 4.5 grams at bedtime and 4.5 grams 2.5-4 hours after (9 grams total per night) 270 mL 5 09/21/2022 10/05/2022 DiscontinuedStart: 09-21-2022 End: 12-25-2517exnpuw,calcium,mag,pot oxybate (XYWAV) 0.5 gram/mL soln Indications: Primary narcolepsy with cataplexy Take 4.5 grams at bedtime and 4.5 grams 2.5-4 hours after (9 grams total per night) 270 mL 5 09/21/2022 02/16/2023 ActiveStart: 04-10-2022 End: 33-23-3956enxmqn,calcium,mag,pot oxybate (XYWAV) 0.5 gram/mL soln Indications: Primary narcolepsy with cataplexy Take 4.5 grams at bedtime and 4.5 grams 2.5-4 hours after (9 grams total per night) 270 mL 5 04/10/2022 04/10/2022 DiscontinuedStart: 04-10-2022 End: 71-89-9380zlnlff,calcium,mag,pot oxybate (XYWAV) 0.5 gram/mL soln Indications: Primary narcolepsy with cataplexy Take 4.5 grams at bedtime and 4.5 grams 2.5-4 hours after (9 grams total per night) 270 mL 5 04/10/2022 09/06/2022 ActiveStart: 10-27-2021 End: 83-24-5348plipaw,calcium,mag,pot oxybate (XYWAV) 0.5 gram/mL soln Indications: Primary narcolepsy with cataplexy Take 4.5 grams at bedtime and 4.5 grams 2.5-4 hours after (9 grams total per night) 5 DiscontinuedStart: 90-00-7677mallxi,calcium,mag,pot oxybate (XYWAV) 0.5 gram/mL soln Indications: Primary narcolepsy with cataplexy Take 4.5 grams at bedtime and 4.5 grams 2.5-4 hours after (9 grams total per night) 5 10/27/2021ctive Start: 05-04-2021 End: 22-21-7945sthrgc,calcium,mag,pot oxybate (XYWAV) 0.5 gram/mL soln Indications: Primary narcolepsy with cataplexy Take 4.5 grams at bedtime and 4.5 grams 2.5-4 hours after (9 grams total per night) 540 mL 5 05/04/2021 10/10/2021 DiscontinuedComment on above:Take 4.5 grams at bedtime and 4.5 grams 2.5-4 hours after (9 grams total per night)traMADol (2 sources)Opioid Agonist End: 06-10-5234mith 50-100 mg by mouth every four hours as neededTRAMADOL HCL (TRAMADOL ORAL) Indications: chronic shoulder and back paiin Take 50-100 mg by mouth every 4 (four) hours as needed Indications: chronic shoulder and back paiin. 10/09/2024 Discontinued (Therapy completed)take 1 tablet by mouth every six hours as needed for paintraMADol (ULTRAM) 50 MG tablet Take 50 mg by mouth every 6 hours as needed for Pain 0 Active Problems Active Problems Problem ClassificationProblemDateDocumented DateEpisodic/ChronicAcquired foot deformities (2 sources)Left foot drop; Translations: [Foot drop, left foot]12-30-2023 EpisodicAdministrative/social admission (1 source)First encounter by subject; Translations: [Persons encountering health services in other specified circumstances]73-46-1449CtvumtkgOknrehzj reactions (2 sources)Atopic dermatitis; Translations: [Other atopic dermatitis]08-27-2024 ChronicAllergic reactions (1 source)Allergic reaction; Translations: [Allergy, unspecified, initial encounter]10-30-8837VazjjrnqRzaeqpe disorders (1 source)Anxiety; Translations: [Anxiety]Onset: 853398-06-6468Zxplnyt Cardiac dysrhythmias (20 sources)Supraventricular tachycardia; Translations: [Postural orthostatic tachycardia syndrome ]Onset: 372927-89-9359GmnvrseLrhjckptpctwu of surgical procedures or medical care (1 source)Disorder of musculoskeletal system following procedure; Translations: [Postprocedural hematoma of amusculoskeletal structure following other procedure]33-20-3706OefgrdrvAansmazuml associated with dizziness or vertigo (2 sources)Dizziness and giddiness; Translations: [Dizziness and giddiness] Onset: 65-19-7962CkphspshIyespmfzcv disorders (1 source)Unspecified right bundle-branch block; Translations: [UNSPECIFIED RIGHT BUNDLE-BRANCH BLOCK]Onset: 86-85-7825McxnwpzAqundcmp mellitus without complication (20 sources)Hyperglycemia; Translations: [Hyperglycemia, unspecified]09-24-2013 EpisodicDisorders of lipid metabolism (20 sources)Hyperlipidemia; Translations: [Hyperlipidemia, unspecified]Chronic Diverticulosis and diverticulitis (20 sources)Diverticulitis of sigmoid colon; Translations: [Diverticulitis of large intestine without perforation or abscess without bleeding]Onset: 202101-32-8760DitekwdPmjyiojw; including migraine (20 sources)Migraine; Translations: [Migraine, unspecified, not intractable, without status migrainosus]Onset: 893639-01-4959ErcvsccIfxpwim and fatigue (1 source)Chronic fatigue, unspecified; Translations: [Chronic fatigue, unspecified]Onset: 15-98-3825GjcfekrAwvoryn and fatigue (2 sources)Other fatigue; Translations: [Other fatigue]Onset: 79-86-9880Mcftepcq Menopausal disorders (2 sources)Postmenopausal state; Translations: [Hormone replacement therapy] 06-14-3145PyheldnaDbebtrsaxgygh mental health disorders (20 sources)Pain disorder with psychological factor; Translations: [Pain disorder with related psychological factors]Onset: 319943-13-7652Jhkiybm Nausea and vomiting (3 sources)Nausea and vomiting; Translations: [Nausea with vomiting, unspecified]Onset: 223544-86-4018PfqlhxdqBvpltecgsbf deficiencies (1 source)Vitamin D deficiency; Translations: [Vitamin D deficiency, unspecified]ChronicOther aftercare (5 sources)Long-term current use of stimulant; Translations: [Other superintendent container terminal (current) drug therapy]17-74-3280HrccwzzpVefum bone disease and musculoskeletal deformities (20 sources)Osteopenia; Translations: [Other specified disorders of bone density and structure, unspecified site]21-31-0005MahbgzmoBfnmo connective tissue disease (2 sources)Myofascial pain; Translations: [Myalgia, other site]EpisodicOther connective tissue disease (2 sources)Neuropathic pain; Translations: [Neuralgia and neuritis, unspecified] EpisodicOther ear and sense organ disorders (20 sources)Hearing loss; Translations: [Unspecified hearing loss, unspecified ear]Onset: 114801-28-9067RcaplktHvrat ear and sense organ disorders (20 sources)Hearing difficulty; Translations: [Unspecified hearing loss, unspecified ear]27-46-6640WtyhselHsnau ear and sense organ disorders (20 sources)Conductive hearing loss, bilateral; Translations: [Conductive hearing loss, bilateral]Onset: 840398-02-2766OedmavaFvhik ear and sense organ disorders (1 source)Cholesteatoma; Translations: [Unspecified cholesteatoma, unspecified ear]60-66-5291MjqubrugGkbtu endocrine disorders (2 sources)Primary adrenocortical insufficiency; Translations: [PRIMARY ADRENOCORTICAL INSUFFICIENCY]Onset: 81-06-1945SogopbuThpyo endocrine disorders (20 sources)Hypoadrenalism; Translations: [Unspecified adrenocortical insufficiency]Onset: 636689-64-5428IqcqqnmFtujn endocrine disorders (20 sources)Primary adrenocortical insufficiency; Translations: [Primary adrenocortical insufficiency]Onset: 878720-50-0954XojnggsHzdns endocrine disorders (1 source)Unspecified adrenocortical insufficiency; Translations: [Unspecified adrenocortical insufficiency]Onset: 50-36-4409QwfechhZkcnx injuries and conditions due to external causes (20 sources)Fracture of bone; Translations: [Other injury of unspecified body region, initial encounter]78-87-7461YoqpssuiGvsqm liver diseases (8 sources)Lesion of liver; Translations: [Liver disease, unspecified]Onset: 316049-95-7811YosuqcjYjlsb liver diseases (2 sources)Fatty (change of) liver, not elsewhere classified; Translations: [Other chronic nonalcoholic liver disease]Onset: hronic Other liver diseases (2 sources)Liver disease, unspecified; Translations: [Liver disease, unspecified]Onset: 25-13-8688LqemnndVvmpi lower respiratory disease (2 sources)Other forms of dyspnea; Translations: [Other forms of dyspnea]Onset: 29-04-5205ZesykgskMfmzz lower respiratory disease (2 sources)Nodule of lung; Translations: [Solitary pulmonary nodule]06-29-2025 EpisodicOther lower respiratory disease (2 sources)Multiple nodules of lung; Translations: [Other nonspecific abnormal finding of lung field]42-59-5703JygobmcdMglyy nervous system disorders (20 sources)Narcolepsy; Translations: [Narcolepsy without cataplexy]11-13-2021 ChronicOther nervous system disorders (20 sources)Chronic pain; Translations: [Other chronic pain]Onset: 09-24-2013 19-09-4223UkhilzbCxllx nervous system disorders (20 sources)Cataplexy and narcolepsy; Translations: [Narcolepsy with cataplexy] ChronicOther nervous system disorders (2 sources)Brachial plexus disorder; Translations: [Brachial plexus disorders] ChronicOther nervous system disorders (2 sources)Thoracic outlet syndrome; Translations: [Brachial plexus disorders] ChronicOther nervous system disorders (1 source)Lesion of left common peroneal nerve; Translations: [Lesion of lateral popliteal nerve, left lower limb]40-42-0121TggdigyDctjd nervous system disorders (4 sources)Narcolepsy without cataplexy ; Translations: [Narcolepsy without cataplexy]91-41-7625AlsuycuSxtkn nervous system disorders (20 sources)Small fiber neuropathy; Translations: [Polyneuropathy, unspecified] Onset: 473011-26-8585CmejlwiDwxys nervous system disorders (1 source)Polyneuropathy, unspecified; Translations: [Small fiber neuropathy] Onset: 80-02-9448CrslrrhPfdlz nervous system disorders (1 source)Narcolepsy with cataplexy; Translations: [Narcolepsy and cataplexy (HCC)]Onset: 51-54-1232FcyhsovZksvi nervous system disorders (1 source)Other chronic pain; Translations: [Other chronic pain]Onset: 00-28-4225NulrjbqPaplq nervous system disorders (1 source)Other acute postprocedural pain; Translations: [Acute post-operative pain]Onset: 14-11-4202AefryofyDbmus nervous system disorders (1 source)Paresthesia; Translations: [Paresthesia of skin]14-59-1906Hqbjorci Other nervous system disorders (1 source)Burning sensation; Translations: [Other disturbances of skin sensation]61-78-9566HhxibvbtEvewq nervous system disorders (2 sources)Anesthesia of skin; Translations: [Anesthesia of skin]Onset: 34-19-8718OrqdlngmFdrxjr media and related conditions (20 sources)Bilateral chronic suppurative otitis media of middle ears; Translations: [Other chronic suppurativeotitis media, bilateral]Onset: 332150-27-3366EeyoepsZeexdkbmyl and visceral atherosclerosis (3 sources)Peripheral vascular disease, unspecified; Translations: [Peripheral vascular disease, unspecified]Onset: 19-57-1086EbdbfluVviwpkib codes; unclassified (20 sources)Sleep apnea; Translations: [Sleep apnea, unspecified]04-03-2012 ChronicSpondylosis; intervertebral disc disorders; other back problems (5 sources)Cervical spondylosis without myelopathy; Translations: [Degeneration of lumbar intervertebral disc]Onset: 258922-60-1185LrjouvuVkwicau disorders (20 sources)Hypothyroidism; Translations: [Iatrogenic thyrotoxicosis]Onset: 885747-41-0670CcyrcccAwdygwejwzwl (2 sources)Unknown / UNK(Unknown)Onset: 73-56-3951Dbjoqivuutid (1 source)Noninfective gastroenteritis and colitis, unspecified / K52.9(ICD-10) Onset: 66-86-2703Gvwzbzuqsfvw (1 source)Hypothyroidism, unspecified / E03.9(ICD-10)Onset: 05-29-2017 Unclassified (1 source)Primary adrenocortical insufficiency / E27.1(ICD-10)Onset: 05-29-2017 Unclassified (1 source)Nicotine dependence, cigarettes, uncomplicated / F17.210(ICD-10)Onset: 23-77-1371Skbdmbkchtgi (1 source)Allergy status to penicillin / Z88.0(ICD-10)Onset: 05-29-2017 Unclassified (1 source)Nausea with vomiting, unspecified / R11.2(ICD-10)Onset: 05-29-2017 Unclassified (1 source)Unspecified abdominal pain / R10.9(ICD-10)Onset: 05-29-2017 Unclassified (1 source)Diarrhea, unspecified / R19.7(ICD-10)Onset: 54-86-0588Spknijjtoblk (20 sources)Hearing loss; Translations: [Hearing impairment]Onset: 09-27-2009 82-39-9695Oarwmxjegert (1 source)Established PatientOnset: 81-70-6711Oyoftxwtwqsw (1 source)Medicae Annual WellnessOnset: 34-49-0012Ijotrnvzaedu (1 source)Supraventricular tachycardia, unspecified; Translations: [Supraventricular tachycardia, unspecified]Onset: 89-94-5803Udowrplrkzor (1 source)Establish CareOnset: 17-14-7994Zuybl infection (2 sources)Molluscum contagiosum infection; Translations: [Molluscum contagiosum]01-67-8365Zuozbwvt Past or Other Problems Problem ClassificationProblemDateDocumented DateEpisodic/ChronicAbdominal hernia (20 sources)Right inguinal hernia ; Translations: [Unilateral inguinal hernia, without obstruction or gangrene,not specified as recurrent]Onset: 07-03-2024 63-67-4865PwatbctaUdcaamvsj pain (20 sources)Generalized abdominal pain; Translations: [Generalized abdominal pain]Onset: 475987-14-9860HqgrkdupLsdjzzr dysrhythmias (1 source)Tachycardia; Translations: [Tachycardia]Onset: EpisodicChronic obstructive pulmonary disease and bronchiectasis (2 sources)Bronchitis; Translations: [Bronchitis, not specified as acute or chronic]Onset: 847605-95-7525YcsukdphUglbkzxq; including migraine (20 sources)Chronic daily headache; Translations: [Chronic daily headache]Onset: 067334-10-1974KazkkdhzIeerrozsxbr (5 sources)Hemorrhoids; Translations: [Unspecified hemorrhoids]Onset: 02-09-2025 10-20-2212QvlltxhaRmcl disorders (20 sources)Mood disordersOnset: 10-09-2024 Resolved: 695733-09-7075Rjkdavcziatpf gastroenteritis (20 sources)Colitis; Translations: [Noninfective gastroenteritis and colitis, unspecified]Onset: 190018-95-9639BxvhouxkCnxtunwroap chest pain (3 sources)Other chest pain; Translations: [Other chest pain]Onset: 12-24-2024 EpisodicOther aftercare (1 source)Other superintendent container terminal (current) drug therapy; Translations: [Long-term current use of stimulant]Onset: 45-55-4536QazpwglpUpeif and unspecified benign neoplasm (1 source)Benign neoplasm of pituitary gland; Translations: [Benign neoplasm of pituitary gland]Onset: 90-78-8896RvgwzcjoFvffv connective tissue disease (20 sources)Fibromyalgia; Translations: [Fibromyalgia]Onset: 10-15-2024 83-21-0913IgjlycecZanwn connective tissue disease (20 sources)Spasm; Translations: [Other muscle spasm]Onset: EpisodicOther connective tissue disease (2 sources)Fibromyalgia; Translations: [Fibromyalgia]Onset: 73-29-1783Soczpcpr Other ear and sense organ disorders (20 sources)Bilateral tinnitus; Translations: [Tinnitus, bilateral]Onset: 855039-17-4507EfhztgswSwtot ear and sense organ disorders (20 sources)Cholesteatoma of left middle ear; Translations: [Unspecified cholesteatoma, left ear]Onset: 071015-89-7077NwinxsvpRampq gastrointestinal disorders (20 sources)History of diverticulitis; Translations: [Personal history of other diseases of the digestive system]Onset: 228214-05-0082MfwdewfzZhcvh lower respiratory disease (2 sources)Chronic cough; Translations: [Chronic cough]Onset: 12-15-2024 23-95-5724NpokeowkVuqge lower respiratory disease (1 source)CoughOnset: 48-89-4012XvcisanlAqpgj nervous system disorders (20 sources)Trigeminal neuralgia; Translations: [Trigeminal neuralgia]Onset: 732331-24-5932UwdzyntoKxpfq nervous system disorders (3 sources)Paresthesia of skin; Translations: [Paresthesia of skin]Onset: 30-64-2055LebynnwbQyxtn nervous system disorders (1 source)Other disturbances of skin sensation; Translations: [Burning sensation]Onset: 97-53-3476OaxzbtvgLjefp nervous system disorders (1 source)Trigeminal neuralgia; Translations: [Trigeminal neuralgia]Onset: 86-48-4168HyvvlygqTapnh screening for suspected conditions (not mental disorders or infectious disease) (20 sources)Encounter for screening mammogram for malignant neoplasm of breast; Translations: [Cancer cervix screening status]Onset: 11-84-7652HhtckehbIbyjcqmn of female genital organs (20 sources)Disorder of rectum; Translations: [Rectocele]Onset: 12-06-2015 Resolved: 732593-47-8989JklypkwTnhyejro codes; unclassified (1 source)Family history of other malignant neoplasms of lymphoid, hematopoietic and related tissues; Translations: [FAM HX OTH MAL UVALDO LYMPH HEMATPOETC]Onset: 46-48-2230BhizpciwParthhyh codes; unclassified (1 source)Family history of malignant neoplasm of other organs or systems; Translations: [FAM HX MALIG NEOPLASM OTH ORGN/SYS]Onset: 61-39-2802Rcnflrce Screening or history of mental health and substance abuse (5 sources)Personal history of nicotine dependence; Translations: [Ex-smoker] Onset: 435757-47-8545FrebqufhKdolcxibssa; intervertebral disc disorders; other back problems (20 sources)Lumbar radiculopathy; Translations: [Nerve root disorder]Onset: 271414-26-3773ThenkwjjOovhzhp and strains (20 sources)Sprain of shoulder rotator cuff; Translations: [Sprain of unspecified rotator cuff capsule, initialencounter]Onset: EpisodicUnclassified (1 source)Non-alcoholic fatty liver -65-9416Apjrziztwlbo (1 source)Patient encounter ypokrh39-97-6260 Results Test NameValueInterpretationReference RangeFacilityCNPNon 35-57-9438JEML Telephone (NEHAAV) PAO LION ([id number]) 1970 F Date Time Provider Department 07/27/25 PALOMO DAVALOS NEHAJOLIE During your visit today, we recorded the following information about you: Destiny Pearl RN 07/27/2025 3:26 PM Signed Received patient assistance medication Botox for injection on 07/27/25. Patient was seen by Dr. Davalos 07/26/25 and received 200 units of Botox from headache Botox stock. Placed Botox received today, 07/27/25 , in fridge- will save for patient's next appointment in October. Please review chart and advise if this is appropriate to do, as well as how is patient going to be charged for Botox received 07/26/25 out of headache stock. Patient sent in multiple messages regarding approval for patient assistance meds and not being charged for Botox. Allergies As of Date: 07/27/2025 Noted Allergy Reaction BIAXIN (CLARITHROMYCIN) 07/26/2010 8 - GI Upset SUTURES 10/29/2013 2 - Rash 4 - Hives 7 - Swelling 9 - Itching Comments: Specifically, cat gut sutures CYMBALTA (DULOXETINE) 06/20/2011 7 - Swelling Comments: Severe abdominal pain DEMEROL (MEPERIDINE (PF)) 05/31/2010 11 - Vomiting INDOMETHACIN 12/13/2010 7 - Swelling Comments: Had 4+ edema in legs and arms the day after taking a new prescription. LIQUID BANDAGE (CYANOACRYLATE) (E*08/20/2024 2 - Rash Comments: Dermabond/exofin MORPHINE 05/31/2010 11 - Vomiting NAPROXEN 01/05/2011 8 - GI Upset PENICILLINS 10/23/2004 2 - Rash 4 - Hives Comments: Patient can tolerate Augmentin VANCOMYCIN 12/08/2015 8 - GI Upset VERSED (MIDAZOLAM HCL) 05/31/2010 11 - Vomiting Z PACK (AZITHROMYCIN) 04/06/2011 2 - Rash 8 - GI Upset Date Reviewed: 07/26/2025 Reviewed by: Blank Contreras LPN - Fully Assessed Reason for Visit: Medication Problem [65] Cmt: Botox Prescriptions as of 07/27/2025 - VYVANSE 70 mg capsule Take (1) capsule by mouth upon awakening Patient should start on August 21, 2025. - sodium,calcium,mag,pot oxybate (XYWAV) 0.5 gram/mL soln oral liquid Take 4.5 grams at bedtime and 4.5 grams 2.5-4 hours after (9 grams total per night) - carBAMazepine (TEGRETOL) 200 mg tablet Take 2 tablets by mouth three times a day. - keTORolac (TORADOL) 60 mg/2 mL soln INJECT 2ML INTRAMUSCULARLY ONE TIME ONLY FOR 1 DOSE - ondansetron (ZOFRAN) 8 mg tablet Take by mouth three times a day as needed. - levothyroxine (SYNTHROID) 50 mcg tablet TAKE 1 TABLET BY MOUTH SATURDAY THROUGH SATURDAY. SKIP SATURDAY. - dexAMETHasone sodium phosphate (DECADRON) 4 mg/mL injection INJECT 1ML (4MG) INTRAMUSCULARLY EVERY 6 HOURS NEEDED FOR ADRENAL STRESS, USE WHEN VOMITING OR DIARRHEA PREVENTS USE OF THE ORAL DOSE. - desmopressin acetate (DDAVP) 0.1 mg tablet Take 0.1 mg by mouth three times daily. - liothyronine (CYTOMEL) 5 mcg tablet Take 5 mcg by mouth twice daily. - ezetimibe (ZETIA) 10 mg tablet Take 10 mg by mouth every morning. - REPATHA SURECLICK 140 mg/mL pen injector INJECT 140 MG UNDER THE SKIN EVERY 2 WEEKS - omeprazole (PRILOSEC) 40 mg capsule Take 40 mg by mouth as needed. - SUMAtriptan (IMITREX) 100 mg tablet Take 100 mg by mouth. - esterified estrogens-methylTESTOSTERone (ESTRATEST) 1.25-2.5 mg per tablet Take 1 tablet by mouth once daily. - tiZANidine (ZANAFLEX) 4 mg tablet Take 4 mg by mouth as needed. Problem List As Of Date 07/27/2025 Noted Resolved Hearing Impairment [PKT4808] 09/27/2009 Migraines [G43.909] 05/31/2010 Chronic suppurative otitis media of both ears [*09/20/2011 Sleep apnea [G47.30] Trigeminal neuralgia [G50.0] Hearing difficulty [H91.90] Narcolepsy [G47.419] Hypothyroidism [E03.9] Hyperglycemia [R73.9] Osteopenia [M85.80] Dyslipidemia [E78.5] Fracture [T14.8XXA] Radiculopathy [M54.10] Chronic pain [G89.29] 09/24/2013 Adrenal insufficiency [E27.40] 10/29/2013 Rotator cuff (capsule) sprain [S43.429A] 08/12/2014 Intractable migraine without aura and without s*09/27/2015 Chronic daily headache [R51.9] 09/27/2015 Medication overuse headache [G44.40] 09/27/2015 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 Rectocele [N81.6] 12/06/2015 01/20/2016 Intractable chronic migraine without aura and w*12/14/2015 Conductive hearing loss, bilateral [H90.0] 06/09/2018 Tinnitus, bilateral [H93.13] 07/14/2018 Cholesteatoma, middle ear, 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] 08/05/2018 POTS (postural orthostatic tachycardia syndrome* Supraventricular tachycardia (HCC) [I47.10] 03/22/2023 Right inguinal hernia [K40.90] 07/03/2024 History of diverticulitis [Z87.19] 07/16/2024 Acute diverticulitis [K57.92] 06/08/2025 Small fiber neuropathy [G62.9] 06/08/2025 Liver lesion [K76.9] 06/08/2025 Encounter Status:Closed by DESTINY PEARL on 07/27/25[facility] 75-14-0530VPXNEuacsg Visit (NEHAAV) PAO LION ([id number]) 1970 F Date Time Provider Department 07/26/25 2:40 PM PALOMO DAVALOS During your visit today, we recorded the following information about you: Pulse Blood pressure 79/minute 119/79 Palomo Davalos MD 07/26/2025 2:53 PM Signed Follow-Up Onabotulinum Toxin A (BotoxTM) for Migraine Indication: Chronic Intractable Migraine Referral Expiration: 12/21/2025 Prior to the initiation of the FIRST treatment with Onabotulinum Toxin A, the patient reported the following average headache frequency over the past 3 MONTHS: Number of moderate-severe migraine days/month: 12 Number of mild migraine days/month: 13 Number of headache free days/month: 5 (120 headache-free hours) After treatment with Onabotulinum Toxin A: Number of moderate-severe migraine days/month: 4 Number of mild migraine days/month: 5 Number of headache free days/month: 21 (504 headache-free hours) Patient reduction in overall migraine days: Yes Patient reduction in moderate-severe migraine days: Yes Patient reduction of headache hours by 100 hours or more: Yes (reduction of 384 hours) Individual has obtained clinical benefit deemed significant by individual or prescriber (Y/N): Yes Patient's quality of life and ability to perform ADLs has improved (Y/N): Yes Wearing off: No The patient has been assessed for disorders which could contribute to breathing or swallowing difficulty, and there is no contraindication with PREEMPT Botox. There is no documented allergic reaction/hypersensitivity to any botulinum toxin and there is no active infection at proposed injection site. HEADACHE SCORES: 02/19/2022 05/28/2022 Headache Questions ER visits since last office visit: 0 0 Hospital stays since last office visit 0 0 Limited ADLs in the last month: 8 Days headache pain free in the last month: 22 Days per month with ALL of the following symptoms - decreased productivity, light sensitivity and nausea: 8 Initial improvement of headache after botox injection at last visit: Very much improved Very much improved PRN medication usage in the last month: 8 Patient impression of improvement since last visit: Very much improved Very much improved 02/19/2022 05/28/2022 HIT-6 HIT-6 64 (Severe impact) Incomplete 02/19/2022 MARIA ESTHER - 2/7 SCORES MARIA ESTHER-2 Score 3 MARIA ESTHER-7 Score 5 07/08/2024 10/08/2024 07/12/2025 PHQ-9 Score 3 4 3 3 BP 119/79 Pulse 79 Patient name: Pao Lion : 1970 ALLERGIES Allergen Reactions - Biaxin [Clarithromy* GI Upset - Sutures Rash, Hives, Swelling, Itching Specifically, cat gut sutures - Cymbalta [Duloxetin* Swelling Severe abdominal pain - Demerol [Meperidine* Vomiting - Indomethacin Swelling Had 4+ edema in legs and arms the day after taking a new prescription. - Liquid Bandage (Cya* Rash Dermabond/exofin - Morphine Vomiting - Naproxen GI Upset - Penicillins Rash, Hives Patient can tolerate Augmentin - Vancomycin GI Upset - Versed [Midazolam H* Vomiting - Z Pack [Azithromyci* Rash, GI Upset UNIVERSAL PROTOCOL / SAFETY CHECKLIST Procedure: Onabotulinum toxin A for migraine Informed Consent Consent Obtained: Written [place] Protocol A moment to CARE was completed SIGN IN Personnel directly involved with the procedure wore the appropriate PPE Special Equipment: N/A Patient/Surrogate Stated/Verified: Patient name, Date of , Relevant allergies and Intended procedure TIME OUT No relevant labs, photos, and/or imaging studies were applicable for review. Consent documented and matches the intended procedure No correct side/site applicable for marking and visibility. No medications required for procedure. No fire risk assessment and interventions applicable. No implant(s) inserted. SIGN OUT No specimen collected. Written Consent Obtained: Written Injection Sites Left (Units) Left (Sites) Right (Units) Right (Sites) TOTAL (Units) Used Car Make Ready Worker 5 1 5 1 10 Procerus Units: 5 Sites: 1 5 Frontalis 10 2 10 2 20 Temporalis 45 9 40 8 85 Occipitalis 15 3 15 3 30 Cervical PSP 10 2 10 2 20 Trapezius 15 3 15 3 30 Total Units used: 200 Total Units wasted: 0 Prior Therapies Duration of Use Dose Side effect Palomo Davalos MD Referring Provider: PALOMO DAVALOS N [[id number]] Allergies As of Date: 07/26/2025 Noted Allergy Reaction BIAXIN (CLARITHROMYCIN) 07/26/2010 8 - GI Upset SUTURES 10/29/2013 2 - Rash 4 - Hives 7 - Swelling 9 - Itching Comments: Specifically, cat gut sutures CYMBALTA (DULOXETINE) 06/20/2011 7 - Swelling Comments: Severe abdominal pain DEMEROL (MEPERIDINE (PF)) 05/31/2010 11 - Vomiting INDOMETHACIN 12/13/2010 7 - Swelling Comments: Had 4+ edema in legs and arms the day after taking a new prescription. LIQUID BANDAGE (CYANOACRYLATE) (E*08/20/2024 2 - Rash Comments: [place] (more content not included)...NormalHighland District HospitalCT LOW DOSE LUNG SCREENINGon [id number] LOW DOSE LUNG SCREENINGCT LOW DOSE LUNG SCREENING *ADDENDUM*Addendum: Reported 32 pack year history of smoking. Finalized by Bryant Torres MD on 07/06/2025 6:52 PM 3 LDCT [address] [facility] ABDOMEN COMPLETEon [id number] ABDOMEN COMPLETEUS ABDOMEN COMPLETE US ABDOMEN COMPLETE Clinical history:Generalized abdominal pain; [...] by Jaquan Hernandez MD on 07/06/2025 7:27 AMNormalProMedica [facility]ag [facility] Hospital PresbyterianCNPNon [id number] (EUGSRM) PAO LION ([id number]) 1970 F Date Time Provider Department 06/25/25 CRISTINA GREEN During your visit today, we recorded the following information about you: Rl Harrison 06/25/2025 10:20 AM Signed Pt is calling stating that she had a CT ABD/ Pel on 06/23. She is stating that she is having some stomach issues currently and is asking if its possible to speed up the process of the results to be read. Please call pt back at [phone] Pt stated that her voicemail has a 30 second delay and is confidential if needed to leave a detailed voicemail. Thank you, Marleni Knapp, EDGAR 06/25/2025 10:34 AM Signed Spoke with radiology - [phone] Reports 7-10 business days for final read on routine Will outreach to radiologist to inquire if able to read sooner Spoke with pt: Reviewed information from radiology Denies any new or worsening sxs Pt is appreciative of office contacting radiology to inquire FYI Allergies As of Date: 06/25/2025 Noted Allergy Reaction BIAXIN (CLARITHROMYCIN) 07/26/2010 8 - GI Upset SUTURES 10/29/2013 2 - Rash 4 - Hives 7 - Swelling 9 - Itching Comments: Specifically, cat gut sutures CYMBALTA (DULOXETINE) 06/20/2011 7 - Swelling Comments: Severe abdominal pain DEMEROL (MEPERIDINE (PF)) 05/31/2010 11 - Vomiting INDOMETHACIN 12/13/2010 7 - Swelling Comments: Had 4+ edema in legs and arms the day after taking a new prescription. LIQUID BANDAGE (CYANOACRYLATE) (E*08/20/2024 2 - Rash Comments: Dermabond/exofin MORPHINE 05/31/2010 11 - Vomiting NAPROXEN 01/05/2011 8 - GI Upset PENICILLINS 10/23/2004 2 - Rash 4 - Hives Comments: Patient can tolerate Augmentin VANCOMYCIN 12/08/2015 8 - GI Upset VERSED (MIDAZOLAM HCL) 05/31/2010 11 - Vomiting Z PACK (AZITHROMYCIN) 04/06/2011 2 - Rash 8 - GI Upset Date Reviewed: 06/23/2025 Reviewed by: Danny Cabrales, RT(R) - Fully Assessed Reason for Visit: Results [95] Prescriptions as of 06/25/2025 - sodium,calcium,mag,pot oxybate (XYWAV) 0.5 gram/mL soln oral liquid Take 4.5 grams at bedtime and 4.5 grams 2.5-4 hours after (9 grams total per night) - VYVANSE 70 mg capsule Take (1) capsule by mouth upon awakening Patient should start on May 23, 2025. - lisdexamfetamine (VYVANSE) 70 mg capsule Take 1 capsule by mouth once daily for 30 days. - carBAMazepine (TEGRETOL) 200 mg tablet Take 2 tablets by mouth three times a day. - keTORolac (TORADOL) 60 mg/2 mL soln INJECT 2ML INTRAMUSCULARLY ONE TIME ONLY FOR 1 DOSE - ondansetron (ZOFRAN) 8 mg tablet Take by mouth three times a day as needed. - levothyroxine (SYNTHROID) 50 mcg tablet TAKE 1 TABLET BY MOUTH SATURDAY THROUGH SATURDAY. SKIP SATURDAY. - dexAMETHasone sodium phosphate (DECADRON) 4 mg/mL injection INJECT 1ML (4MG) INTRAMUSCULARLY EVERY 6 HOURS NEEDED FOR ADRENAL STRESS, USE WHEN VOMITING OR DIARRHEA PREVENTS USE OF THE ORAL DOSE. - desmopressin acetate (DDAVP) 0.1 mg tablet Take 0.1 mg by mouth three times daily. - liothyronine (CYTOMEL) 5 mcg tablet Take 5 mcg by mouth twice daily. - ezetimibe (ZETIA) 10 mg tablet Take 10 mg by mouth every morning. - REPATHA SURECLICK 140 mg/mL pen injector INJECT 140 MG UNDER THE SKIN EVERY 2 WEEKS - hydrOXYzine HCl (ATARAX) 25 mg tablet Take 25 mg by mouth as needed. - omeprazole (PRILOSEC) 40 mg capsule Take 40 mg by mouth as needed. - SUMAtriptan (IMITREX) 100 mg tablet Take 100 mg by mouth. - esterified estrogens-methylTESTOSTERone (ESTRATEST) 1.25-2.5 mg per tablet Take 1 tablet by mouth once daily. - tiZANidine (ZANAFLEX) 4 mg tablet Take 4 mg by mouth as needed. Problem List As Of Date 06/25/2025 Noted Resolved Hearing Impairment [GHO6181] 09/27/2009 Migraines [G43.909] 05/31/2010 Chronic suppurative otitis media of both ears [*09/20/2011 Sleep apnea [G47.30] Trigeminal neuralgia [G50.0] Hearing difficulty [H91.90] Narcolepsy [G47.419] Hypothyroidism [E03.9] Hyperglycemia [R73.9] Osteopenia [M85.80] Dyslipidemia [E78.5] Fracture [T14.8XXA] Radiculopathy [M54.10] Chronic pain [G89.29] 09/24/2013 Adrenal insufficiency [E27.40] 10/29/2013 Rotator cuff (capsule) sprain [S43.429A] 08/12/2014 Intractable migraine without aura and without s*09/27/2015 Chronic daily headache [R51.9] 09/27/2015 Medication overuse headache [G44.40] 09/27/2015 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 Rectocele [N81.6] 12/06/2015 01/20/2016 Intractable chronic migraine without aura and w*12/14/2015 Conductive hearing loss, bilateral [H90.0] 06/09/2018 Tinnitus, bilateral [H93.13] 07/14/2018 Cholesteatoma, middle ear, 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] 08/05/2018 POTS (postural orthostatic tachycardia syndrome* Supraventricular tachycardia (HCC) [I47.10] 03/22/2023 Right inguinal hernia [K40.90] 07/03/2024 History of diverticulitis [Z87.19] 07/16/2024 (more content not included)...NormalHighland District HospitalCT ABD/PEL W IVCON on [id number] ABD/PEL W IVCON* * *Final Report* * * DATE OF EXAM: Jun 23 2025 6:10PM [facility] 0530 - CT ABD/PEL W IVCON / PROCEDURE REASON: Acute diverticulitis * * * * Physician Interpretation * * * * EXAMINATION: CT ABDOMEN AND PELVIS WITH IV CONTRAST CLINICAL HISTORY: Acute diverticulitis TECHNIQUE: CT of the abdomen and pelvis was performed using standard technique, scanning from just above the dome of the diaphragm to the symphysis pubis. MQ: CTAP_3 Contrast: IV: 100 ml of Omnipaque 350 Oral: 450 ml of Omni 350 10-25ml diluted with water CT Radiation dose: Integrated Dose-length product (DLP) for this visit = 251 mGy*cm. CT Dose Reduction Employed: Automated exposure control(AEC) and iterative recon COMPARISON: None. RESULT: Liver: No mass. Multiple hypodensities are too small to fully characterize but likely benign. Normal hepatic morphology. Biliary: No bile duct dilation. Gallbladder is unremarkable. Spleen: No mass. No splenomegaly. Pancreas: No mass or duct dilation. Adrenals: No mass. Kidneys: No mass, calculus or hydronephrosis. GI tract: No dilation or wall thickening. Enteric contrast from mid ascending colon to rectum. Sigmoid colon predominant colonic diverticulosis without acute diverticulitis without significant rectal involvement. No surrounding abscess or fistula. Lymph nodes: No abdominal or pelvic lymphadenopathy. Mesentery/Peritoneum: No ascites or mass. Retroperitoneum: No mass. Vasculature: - Abdominal aorta and iliac arteries: No aneurysm. - Celiac and SMA: Patent without stenosis. - Portal venous system (SMV, splenic vein, portal vein and branches): Patent. - Hepatic veins: Patent. Pelvis: No mass, ascites or fluid collection. Bones/Soft Tissues: Mild degenerative disease in thoracolumbar spine. No aggressive or concerning osseous lesions. Bilateral breast prostheses partially visualized. Lower thorax: No acute cardiopulmonary abnormalities at the lung bases. Localizer images: No additional findings. IMPRESSION: Mild to moderate sigmoid colonic diverticulosis without acute diverticulitis. Student Success Coach: PSCB Transcribe Date/Time: Jun 25 2025 8:18P Dictated by : THONY GONZALEZ MD This examination was interpreted and the report reviewed and electronically signed by: THONY GONZALEZ MD on Jun 25 2025 8:27PM EST [id number] Valley HospitalCT abdomen pelvis wo conon [id number] abdomen pelvis wo [facility] [place] [address] [place] [address] CT Scan Report Signed Patient: Pao Lion MR#: [id number] [id number] : 1970 Acct:[id number] Age/Sex: 55 / F ADM Date: 06/03/25 Loc: CT Room: Type: [facility] Attending Dr: Jeff WATSON Copies to: SHIRLEY Sheridan Ordering Provider: SHIRLEY Sheridan Date of Service: 06/03/25 CT/CT abdomen pelvis wo con: K76.9, K76.0 Revised report: Correction CT Abdomen and Pelvis withoutcontrast TECHNIQUE: Axial imaging with 2-D reconstruction. . The CT exam was performed using one or more the following dose reduction techniques: Automated exposure control, adjustment of the MA and/or Kv according to patient size, or use of the iterative reconstruction technique. COMPARISON: 06/22/2023 History: Abdominal discomfort. Liver lesion. Nonalcoholic fatty liver disease. Elevated liver enzymes LIMITATIONS: No IV contrast LOWER THORAX the bilateral breast implantation LIVER: Hepatic steatosis. 3 mm hypodensity in the right upper lobe of the liver not visualized with noncontrasted imaging. A region of focal fatty infiltration of the left lobe of liver not well demonstrated with noncontrasted imaging. No hepatic lesion identified with noncontrasted imaging. GALLBLADDER: No gallbladder abnormality identified. BILE DUCTS: No dilatation SPLEEN: Unremarkable PANCREAS: Unremarkable ADRENAL GLANDS: Unremarkable KIDNEYS:Unremarkable AORTA: No abdominal aortic aneurysm identified. RETROPERITONEUM: No significant retroperitoneal abnormalities identified. MESENTERY:Unremarkable STOMACH:Unremarkable SMALL BOWEL: The small bowel loops are nondistended. APPENDIX: The appendix is normal. COLON: Transverse, Descending and sigmoid diverticulosis. Peridiverticular fatty stranding and proximal sigmoid diverticuli consistent with acute diverticulitis. No abscess or extraluminal air. Edematous wall thickening of proximal sigmoid colon. URINARY BLADDER: Urinary bladder is unremarkable. REPRODUCTIVE SYSTEM: Reproductive structures are unremarkable. PNEUMOPERITONEUM: None PERITONEAL FLUID:None BONY STRUCTURES: Unremarkable ABDOMINAL WALL: Unremarkable CT/CT abdomen pelvis wo con IMPRESSION: Uncomplicated acute proximal sigmoid diverticulitis. Hepatic steatosis. Nonvisualization of focal abnormalities of the liver with noncontrasted imaging. Prior imaging 06/22/2023 suggests tiny hepatic cyst and focal fatty infiltration of the left lobe. This can be further assessed with contrasted MRI of the liver. Impression dictated by: Gareth Posey M.D. 06/04/2025 9:39 AM Dictation Location: [place] [address] Transcribed By: [facility] 06/04/25 0939 Dictated By: Gareth Posey DO 06/03/25 1501 Signed By: 06/04/25 0939[facility] cervical spine wo [facility] [id number] cervical spine wo [facility] [place] [address] [place] [address] MRI Report Signed Patient: Pao Lion MR#: [id number] [id number] : 1970 Acct:[id number] Age/Sex: 55 / F ADM Date: 05/20/25 Loc: MR Room: Type: [facility] Attending Dr: Jeff WATSON Copies to: SHIRLEY Sheridan Ordering Provider: SHIRLEY Sheridan Date of Service: 05/20/25 MR/MR cervical spine wo con: M54.12, M79.7 EXAMINATION: MRI OF THE CERVICAL SPINE WITHOUT CONTRAST CLINICAL DATA: Chronic neck pain that has exacerbated, cervical radiculopathy, fibromyalgia. COMPARISON: MRI 08/13/2011 TECHNIQUE: Multiecho imaging was performed in the sagittal and axial plane without contrast administration. FINDINGS: The craniocervical junction is maintained. Cervical cord demonstrates normal signal and morphology. Cervical vertebral heights, alignment maintained. Incidental vertebral body hemangioma at T3 vertebral body. Otherwise unremarkable appearance of bone marrow signal. No prevertebral or paraspinal soft tissue swelling. C2-C3: Unremarkable. C3-4: Mild to moderate left facet arthropathy. This causes minimal left foraminal narrowing. Central canal or foramina patent. C4-C5: Mild right mild to moderate left facet arthropathy. This causes minimal foraminal encroachment. Canal is patent. C5-6: Broad-based disc bulge greatest right paracentral region. Uncovertebral spurring and facet arthropathy. Canal neural foramina patent. 2 mm T2 hyperintensity anterior to left facet joint may represent a small synovial cyst C6-7: Broad-based right paracentral bulge minimal ventral indentation the canal. Canal and neural neural foramina are patent. C7-T1: Minimal facet arthropathy, greatest left.. MR/MR cervical spine wo con IMPRESSION: Mild predominantly posterior element degenerative changes, predominantly left-sided with minimal disc bulges C5-C7. No significant central canal or neural foramen identified. Impression dictated by: Layo Aquino M.D. 05/21/2025 11:57 AM Dictation Location: [place] [address] Transcribed By: [facility] 05/21/25 1157 Dictated By: Layo Aquino MD 05/21/25 1147 Signed By: 05/21/25 1157[facility] lumbar spine wo conon [id number] lumbar spine wo [facility] [place] [address] [place] [address] MRI Report Signed Patient: Pao Lion MR#: [id number] 933 : 1970 Acct:[id number] Age/Sex: 55 / F ADM Date: 05/20/25 Loc: MR Room: Type: [facility] Attending Dr: Jeff WATSON Copies to: SHIRLEY Sheridan Ordering Provider: SHIRLEY Sheridan Date of Service: 05/20/25 MR/MR lumbar spine wo con: M79.7, M54.12 MRI LUMBAR SPINE PERFORMED WITHOUT CONTRAST INDICATION: Chronic low back pain, chronic bilateral low back pain with bilateral sciatica, history of fibromyalgia COMPARISON: MRI lumbar spine 11/12/2013 FINDINGS: Lumbar vertebral heights, alignments and bone marrow signal is unremarkable. Minimal intervertebral osteophyte at L1-L2. Conus medullaris terminates normally at L1- 2. There is a cauda equina are unremarkable. Paraspinal soft tissues unremarkable. There is mild levocurvature. T12-L1: No significant disease, disc disease, central canal or neural foramen identified. L1-2: Minimal disc desiccation. Otherwise no focal disc protrusion is canal neural foramen identified. L2-L5: Mild multilevel facet arthropathy, predominantly right-sided. No significant disc disease, central canal or neural foraminal narrowing identified. L5-S1: Moderate facet arthropathy. Otherwise no significant disease, disc protrusion, central canal or neural foramen identified. MR/MR lumbar spine wo con IMPRESSION: Multilevel posterior element degenerative changes greatest at the lumbosacral junction. Otherwise, no significant disc disease central canal or neural foraminal narrowing identified. Impression dictated by: Layo Aquino M.D. 05/21/2025 2:59 PM Dictation Location: [place] [address] Transcribed By: [facility] 05/21/25 1459 Dictated By: Layo Aquino MD 05/21/25 1454 Signed By: 05/21/25 1459[facility] Physician GroupXR pre/post mri xrayon [id number] pre/post m[facility]AS[facility] [place] [address] [place] [address] XRay Report Signed Patient: Pao Lion MR#: [id number] 933 : 1970 Acct:[id number] Age/Sex: 55 / F ADM Date: 05/20/25 Loc: MR Room: Type: [facility] Attending Dr: Jeff WATSON Copies to: SHIRLEY Sheridan Ordering Provider: SHIRLEY Sheridan Date of Service: 05/20/25 XR/XR pre/post mri xray: PRE MRI OF THE CERVICALA ND LUMBAR X-rays of the cervical and lumbar spine, 3 views are spine 2 views lumbar spine INDICATION: Midline low back pain, chronic neck pain, fibromyalgia, cervical radiculopathy. COMPARISON: 11/12/2013 FINDINGS: Cervical spine::: Straightening and reversal. Cervical vertebral heights and alignment unremarkable. No prevertebral soft tissue swelling. Osseous neural foramina patent. Minimal spurring at C5-6. Lung apices are clear. Lumbar spine: 2 views views demonstrate minimal dextrocurvature. Lumbar heights maintained. No fracture or malalignment. Mild multilevel facet arthropathy greatest L5-S1. XR/XR pre/post mri xray IMPRESSION: No significant degenerative changes of the cervical spine on x-ray. Mild facet arthropathy involving the lumbar spine on x-ray. Impression dictated by: Layo Aquino M.D. 05/21/2025 3:02 PM Dictation Location: [facility]- Transcribed By: [facility] 05/21/25 1502 Dictated By: Layo Aquino MD 05/21/25 1459 Signed By: 05/21/25 1502[facility]ician GroupNo Panel Informationon [id number] City HospitalRadiology Study observation (narrative) Fostoria City HospitalCNOVon [id number] Visit (NEHAAV) PAO LION ([id number]) 1970 F Date Time Provider Department 04/26/25 4:00 PM PALOMO DAVALOS NEJONNY During your visit today, we recorded the following information about you: Pulse Blood pressure 77/minute 117/78 Palomo Davalos MD 04/27/2025 2:30 PM Signed Follow-Up Onabotulinum Toxin A (BotoxTM) for Migraine Indication: Chronic Intractable Migraine Referral Expiration: 12/21/2025 Prior to the initiation of the FIRST treatment with Onabotulinum Toxin A, the patient reported the following average headache frequency over the past 3 MONTHS: Number of moderate-severe migraine days/month: 12 Number of mild migraine days/month: 13 Number of headache free days/month: 5 (120 headache-free hours) After treatment with Onabotulinum Toxin A: Number of moderate-severe migraine days/month: 4 Number of mild migraine days/month: 5 Number of headache free days/month: 21 (504 headache-free hours) Patient reduction in overall migraine days: Yes Patient reduction in moderate-severe migraine days: Yes Patient reduction of headache hours by 100 hours or more: Yes (reduction of 384 hours) Individual has obtained clinical benefit deemed significant by individual or prescriber (Y/N): Yes Patient's quality of life and ability to perform ADLs has improved (Y/N): Yes Wearing off: No The patient has been assessed for disorders which could contribute to breathing or swallowing difficulty, and there is no contraindication with PREEMPT Botox. There is no documented allergic reaction/hypersensitivity to any botulinum toxin and there is no active infection at proposed injection site. HEADACHE SCORES: 02/19/2022 05/28/2022 Headache Questions ER visits since last office visit: 0 0 Hospital stays since last office visit 0 0 Limited ADLs in the last month: 8 Days headache pain free in the last month: 22 Days per month with ALL of the following symptoms - decreased productivity, light sensitivity and nausea: 8 Initial improvement of headache after botox injection at last visit: Very much improved Very much improved PRN medication usage in the last month: 8 Patient impression of improvement since last visit: Very much improved Very much improved 02/19/2022 05/28/2022 HIT-6 HIT-6 64 (Severe impact) Incomplete 02/19/2022 MARIA ESTHER - 2/7 SCORES MARIA ESTHER-2 Score 3 MARIA ESTHER-7 Score 5 04/02/2024 07/08/2024 10/08/2024 PHQ-9 Score 5 5 3 4 BP 117/78 (BP Site: Left Arm, BP Cuff Size: Regular Adult) Pulse 77 Patient name: Pao Lion : 1970 ALLERGIES Allergen Reactions - Biaxin [Clarithromy* GI Upset - Sutures Rash, Hives, Swelling, Itching Specifically, cat gut sutures - Cymbalta [Duloxetin* Swelling Severe abdominal pain - Demerol [Meperidine* Vomiting - Indomethacin Swelling Had 4+ edema in legs and arms the day after taking a new prescription. - Liquid Bandage (Cya* Rash Dermabond/exofin - Morphine Vomiting - Naproxen GI Upset - Penicillins Rash, Hives Patient can tolerate Augmentin - Vancomycin GI Upset - Versed [Midazolam H* Vomiting - Z Pack [Azithromyci* Rash, GI Upset UNIVERSAL PROTOCOL / SAFETY CHECKLIST Procedure: Onabotulinum toxin A for migraine Informed Consent Consent Obtained: Written [place] Protocol A moment to CARE was completed SIGN IN Personnel directly involved with the procedure wore the appropriate PPE Special Equipment: N/A Patient/Surrogate Stated/Verified: Patient name, Date of , Relevant allergies and Intended procedure TIME OUT No relevant labs, photos, and/or imaging studies were applicable for review. Consent documented and matches the intended procedure No correct side/site applicable for marking and visibility. No medications required for procedure. No fire risk assessment and interventions applicable. No implant(s) inserted. SIGN OUT No specimen collected. Written Consent Obtained: Written Injection Sites Left (Units) Left (Sites) Right (Units) Right (Sites) TOTAL (Units) Used Car Make Ready Worker 5 1 5 1 10 Procerus Units: 5 Sites: 1 5 Frontalis 10 2 10 2 20 Temporalis 45 9 40 8 85 Occipitalis 15 3 15 3 30 Cervical PSP 10 2 10 2 20 Trapezius 15 3 15 3 30 Total Units used: 200 Total Units wasted: 0 Prior Therapies Duration of Use Dose Side effect Palomo Davalos MD Referring Provider: APLOMO DAVALOS [[id number]] Allergies As of Date: 04/26/2025 Noted Allergy Reaction BIAXIN (CLARITHROMYCIN) 07/26/2010 8 - GI Upset SUTURES 10/29/2013 2 - Rash 4 - Hives 7 - Swelling 9 - Itching Comments: Specifically, cat gut sutures CYMBALTA (DULOXETINE) 06/20/2011 7 - Swelling Comments: Severe abdominal pain DEMEROL (MEPERIDINE (PF)) 05/31/2010 11 - Vomiting INDOMETHACIN 12/13/2010 7 - Swelling Comments: Had 4+ edema in legs and arms the day after taking a new prescription. LIQUID BANDAGE (CYANO (more content not included)...NormalHighland District HospitalCNNURSEon [id number] Visit (HEMASA) PAO LION ([id number]) 1970 F Date Time Provider Department 04/13/25 3:45 PM RACHELLE NURSE OVIDIO AVENDANO During your visit today, we recorded the following information about you: Elizabeth Owen MA 04/13/2025 3:50 PM Signed Patient identified by 2 identifiers. EKG performed as ordered. Elizabeth Owen MA Referring Provider: DARIANA STOCKTON [[id number]] Allergies As of Date: 04/13/2025 Noted Allergy Reaction BIAXIN (CLARITHROMYCIN) 07/26/2010 8 - GI Upset SUTURES 10/29/2013 2 - Rash 4 - Hives 7 - Swelling 9 - Itching Comments: Specifically, cat gut sutures CYMBALTA (DULOXETINE) 06/20/2011 7 - Swelling Comments: Severe abdominal pain DEMEROL (MEPERIDINE (PF)) 05/31/2010 11 - Vomiting INDOMETHACIN 12/13/2010 7 - Swelling Comments: Had 4+ edema in legs and arms the day after taking a new prescription. 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 - lisdexamfetamine (VYVANSE) 70 mg capsule Take 1 capsule by mouth once daily for 30 days. - carBAMazepine (TEGRETOL) 200 mg tablet Take 2 tablets by mouth three times a day. - keTORolac (TORADOL) 60 mg/2 mL soln INJECT 2ML INTRAMUSCULARLY ONE TIME ONLY FOR 1 DOSE - ondansetron (ZOFRAN) 8 mg tablet Take by mouth three times a day as needed. - levothyroxine (SYNTHROID) 50 mcg tablet TAKE 1 TABLET BY MOUTH SATURDAY THROUGH SATURDAY. SKIP SATURDAY. - dexAMETHasone sodium phosphate (DECADRON) 4 mg/mL injection INJECT 1ML (4MG) INTRAMUSCULARLY EVERY 6 HOURS NEEDED FOR ADRENAL STRESS, USE WHEN VOMITING OR DIARRHEA PREVENTS USE OF THE ORAL DOSE. - desmopressin acetate (DDAVP) 0.1 mg tablet Take 0.1 mg by mouth three times daily. - liothyronine (CYTOMEL) 5 mcg tablet Take 5 mcg by mouth twice daily. - ezetimibe (ZETIA) 10 mg tablet Take 10 mg by mouth every morning. - REPATHA SURECLICK 140 mg/mL pen injector INJECT 140 MG UNDER THE SKIN EVERY 2 WEEKS - hydrOXYzine HCl (ATARAX) 25 mg tablet Take 25 mg by mouth as needed. - omeprazole (PRILOSEC) 40 mg capsule Take 40 mg by mouth as needed. - SUMAtriptan (IMITREX) 100 mg tablet Take 100 mg by mouth. - esterified estrogens-methylTESTOSTERone (ESTRATEST) 1.25-2.5 mg per tablet Take 1 tablet by mouth once daily. - tiZANidine (ZANAFLEX) 4 mg tablet Take 4 mg by mouth as needed. 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] Hypothyroidism [E03.9] Hyperglycemia [R73.9] Osteopenia [M85.80] Dyslipidemia [E78.5] Fracture [T14.8XXA] Radiculopathy [M54.10] Chronic pain [G89.29] 09/24/2013 Adrenal insufficiency [E27.40] 10/29/2013 Rotator cuff (capsule) sprain [S43.429A] 08/12/2014 Intractable migraine without aura and without s*09/27/2015 Chronic daily headache [R51.9] 09/27/2015 Medication overuse headache [G44.40] 09/27/2015 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 Rectocele [N81.6] 12/06/2015 01/20/2016 Intractable chronic migraine without aura and w*12/14/2015 Conductive hearing loss, bilateral [H90.0] 06/09/2018 Tinnitus, bilateral [H93.13] 07/14/2018 Cholesteatoma, middle ear, 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] 08/05/2018 POTS (postural orthostatic tachycardia syndrome* Supraventricular tachycardia (HCC) [I47.10] 03/22/2023 Right inguinal hernia [K40.90] 07/03/2024 History of diverticulitis [Z87.19] 07/16/2024 Encounter Status:Closed by ELIZABETH OWEN on 04/13/25NoClinton Memorial HospitalTOXICOLOGY SCREEN, ROUTINE URINEon [id number] Confirm (U) [Mass/Vol]PositiveAbnormalNegativeRegency Hospital Cleveland West on above: Order Comment: Specimen Type: URINE SPECIMENOrdering Facility: [facility] Address:[address] [place], [place] [address]Result Comment: Cutoff threshold at 1000 ng/mL.Performed By: #### UTOX2 ####[facility] LABCLIA [id number] [place] [address] [place] STATES OF AMERICABARBITURATES, URINENegativeNormalNegativeRegency Hospital [facility] West on above:Order Comment: Specimen Type: URINE SPECIMENOrdering Facility: [facility] Address:[address] [place], [place] [address]Result Comment: Cutoff threshold at 200 ng/mL.Performed By: #### UTOX2 ####[facility] LABCLIA [id number] [facility] [place] [address] [place] AMERICABENZODIAZEPINES, URNegativeNormal NegativeRegency Hospital [facility] on above:Order Comment: Specimen Type: URINE SPECIMENOrdering Facility: [facility] Address:[address] [place], [place] [address]Result Comment: Cutoff threshold at 200 ng/mL. Performed By: #### UTOX2 ####[facility] LABIA [id number] [address] STATES OF AMERICACannabinoids Screen Ql (U)NegativeNormalNegativeRegency Hospital [facility] on above: Order Comment: Specimen Type: URINE SPECIMENOrdering Facility: [facility] Address:[address] [place], [place] [address]Result Comment: Cutoff threshold at 50 ng/mL.Performed By: #### UTOX2 ####[facility] LABIA [id number] [address] STATES OF AMERICACocaine Ql (U)NegativeNormalNegativeRegency Hospital [facility] on above:Order Comment: Specimen Type: URINE SPECIMENOrdering Facility: [facility] Address:[address] [place], [place] [address]Result Comment: Cutoff threshold at 300 ng/mL.Performed By: #### UTOX2 ####[facility] [id number] [place] [address] [place] OF AMERICAEthanol (U) [Mass/Vol]<11Normal<11CThe [facility] Comment on above:Order Comment: Specimen Type: URINE SPECIMENOrdering Facility: [facility] Address:[address] [place] [address] Performed By: #### UTOX2 ####[facility] LABIA [id number] [place] [address] [place] OF AMERICAOpiates Screen Ql (U)NegativeNormalNegativeRegency Hospital [facility] on above:Order Comment: Specimen Type: URINE SPECIMENOrdering Facility: [facility] Address:[address] [place] [address] Comment: Cutoff threshold at 300 ng/mL.Performed By: #### UTOX2 ####[facility] [id number] [address]oxyCODONE cutoff Screen (U) [Mass/Vol]NegativeNormalNegativeRegency Hospital [facility] on above:Order Comment: Specimen Type: URINE SPECIMENOrdering Facility: [facility] Address:[address] [place] [address] Comment: Cutoff threshold at 100 ng/mL.Performed By: #### UTOX2 ####[facility] [id number] [address]ETPhencyclidine Ql (U) NegativeNormalNegativeRegency Hospital [facility] on above:Order Comment: Specimen Type: URINE SPECIMENOrdering Facility: [facility] Address:[address] [place] [address] Comment: Cutoff threshold at 25 ng/mL.Performed By: #### UTOX2 ####[facility] [id number] [address] [place] Jose G [id number] ([facility]) PAO LION ([id number]) 1970 F Date Time Provider Department 04/09/25 DARIANA STOCKTON [facility] During your visit today, we recorded the following information about you: Allergies As of Date: 04/09/2025 Noted Allergy Reaction BIAXIN (CLARITHROMYCIN) 07/26/2010 8 - GI Upset SUTURES 10/29/2013 2 - Rash 4 - Hives 7 - Swelling 9 - Itching Comments: Specifically, cat gut sutures CYMBALTA (DULOXETINE) 06/20/2011 7 - Swelling Comments: Severe abdominal pain DEMEROL (MEPERIDINE (PF)) 05/31/2010 11 - Vomiting INDOMETHACIN 12/13/2010 7 - Swelling Comments: Had 4+ edema in legs and arms the day after taking a new prescription. LIQUID BANDAGE (CYANOACRYLATE) (E*08/20/2024 2 - Rash Comments: Dermabond/exofin MORPHINE 05/31/2010 11 - Vomiting NAPROXEN 01/05/2011 8 - GI Upset PENICILLINS 10/23/2004 2 - Rash 4 - Hives Comments: Patient can tolerate Augmentin VANCOMYCIN 12/08/2015 8 - GI Upset VERSED (MIDAZOLAM HCL) 05/31/2010 11 - Vomiting Z PACK (AZITHROMYCIN) 04/06/2011 2 - Rash 8 - GI Upset Date Reviewed: 04/09/2025 Reviewed by: Dariana Stockton APRN.LEAD FABRICATOR - Fully Assessed Prescriptions as of 04/09/2025 - VYVANSE 70 mg capsule Take (1) capsule by mouth upon awakening Patient should start on May 23, 2025. - lisdexamfetamine (VYVANSE) 70 mg capsule Take 1 capsule by mouth once daily for 30 days. - carBAMazepine (TEGRETOL) 200 mg tablet Take 2 tablets by mouth three times a day. - keTORolac (TORADOL) 60 mg/2 mL soln INJECT 2ML INTRAMUSCULARLY ONE TIME ONLY FOR 1 DOSE - ondansetron (ZOFRAN) 8 mg tablet Take by mouth three times a day as needed. - levothyroxine (SYNTHROID) 50 mcg tablet TAKE 1 TABLET BY MOUTH SATURDAY THROUGH SATURDAY. SKIP SATURDAY. - dexAMETHasone sodium phosphate (DECADRON) 4 mg/mL injection INJECT 1ML (4MG) INTRAMUSCULARLY EVERY 6 HOURS NEEDED FOR ADRENAL STRESS, USE WHEN VOMITING OR DIARRHEA PREVENTS USE OF THE ORAL DOSE. - desmopressin acetate (DDAVP) 0.1 mg tablet Take 0.1 mg by mouth three times daily. - liothyronine (CYTOMEL) 5 mcg tablet Take 5 mcg by mouth twice daily. - ezetimibe (ZETIA) 10 mg tablet Take 10 mg by mouth every morning. - REPATHA SURECLICK 140 mg/mL pen injector INJECT 140 MG UNDER THE SKIN EVERY 2 WEEKS - hydrOXYzine HCl (ATARAX) 25 mg tablet Take 25 mg by mouth as needed. - omeprazole (PRILOSEC) 40 mg capsule Take 40 mg by mouth as needed. - SUMAtriptan (IMITREX) 100 mg tablet Take 100 mg by mouth. - esterified estrogens-methylTESTOSTERone (ESTRATEST) 1.25-2.5 mg per tablet Take 1 tablet by mouth once daily. - tiZANidine (ZANAFLEX) 4 mg tablet Take 4 mg by mouth as needed. Problem List As Of Date 04/09/2025 Noted Resolved Hearing Impairment [[id number]] 09/27/2009 Migraines [G43.909] 05/31/2010 Chronic suppurative otitis media of both ears [*09/20/2011 Sleep apnea [G47.30] Trigeminal neuralgia [G50.0] Hearing difficulty [H91.90] Narcolepsy [G47.419] Hypothyroidism [E03.9] Hyperglycemia [R73.9] Osteopenia [M85.80] Dyslipidemia [E78.5] Fracture [T14.8XXA] Radiculopathy [M54.10] Chronic pain [G89.29] 09/24/2013 Adrenal insufficiency [E27.40] 10/29/2013 Rotator cuff (capsule) sprain [S43.429A] 08/12/2014 Intractable migraine without aura and without s*09/27/2015 Chronic daily headache [R51.9] 09/27/2015 Medication overuse headache [G44.40] 09/27/2015 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 Rectocele [N81.6] 12/06/2015 01/20/2016 Intractable chronic migraine without aura and w*12/14/2015 Conductive hearing loss, bilateral [H90.0] 06/09/2018 Tinnitus, bilateral [H93.13] 07/14/2018 Cholesteatoma, middle ear, 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] 08/05/2018 POTS (postural orthostatic tachycardia syndrome* Supraventricular tachycardia (HCC) [I47.10] 03/22/2023 Right inguinal hernia [K40.90] 07/03/2024 History of diverticulitis [Z87.19] 07/16/2024 Encounter Status:Closed by ESTER ROMERO on 04/09/25[facility] CenterJavier [id number] (NIQ) PAO LION ([id number]) 1970 F Date Time Provider Department 03/15/25 PALOMO DAVALOS NIHeather During your visit today, we recorded the following information about you: Alicia Salazar 03/15/2025 12:47 PM Signed Called patient and LVM. The Free Drug Program has not yet accepted your application to receive Botox through the free drug program but your insurance has approved for you to receive Botox. Please call [phone] if you have questions or to move your appointment. Allergies As of Date: 03/15/2025 Noted Allergy Reaction BIAXIN (CLARITHROMYCIN) 07/26/2010 8 - GI Upset SUTURES 10/29/2013 2 - Rash 4 - Hives 7 - Swelling 9 - Itching Comments: Specifically, cat gut sutures CYMBALTA (DULOXETINE) 06/20/2011 7 - Swelling Comments: Severe abdominal pain DEMEROL (MEPERIDINE (PF)) 05/31/2010 11 - Vomiting INDOMETHACIN 12/13/2010 7 - Swelling Comments: Had 4+ edema in legs and arms the day after taking a new prescription. LIQUID BANDAGE (CYANOACRYLATE) (E*08/20/2024 2 - Rash Comments: Dermabond/exofin MORPHINE 05/31/2010 11 - Vomiting NAPROXEN 01/05/2011 8 - GI Upset PENICILLINS 10/23/2004 2 - Rash 4 - Hives Comments: Patient can tolerate Augmentin VANCOMYCIN 12/08/2015 8 - GI Upset VERSED (MIDAZOLAM HCL) 05/31/2010 11 - Vomiting Z PACK (AZITHROMYCIN) 04/06/2011 2 - Rash 8 - GI Upset Date Reviewed: 02/09/2025 Reviewed by: Amber Johnson RN - Fully Assessed Prescriptions as of 03/15/2025 - lisdexamfetamine (VYVANSE) 70 mg capsule Take (1) capsule by mouth upon awakening - lisdexamfetamine (VYVANSE) 70 mg capsule Take 1 capsule by mouth once daily for 30 days. - XYWAV 0.5 gram/mL soln oral liquid Take 9 mL by mouth at bedtime and 4 hours after. - carBAMazepine (TEGRETOL) 200 mg tablet Take 2 tablets by mouth three times a day. - keTORolac (TORADOL) 60 mg/2 mL soln INJECT 2ML INTRAMUSCULARLY ONE TIME ONLY FOR 1 DOSE - ondansetron (ZOFRAN) 8 mg tablet Take by mouth three times a day as needed. - levothyroxine (SYNTHROID) 50 mcg tablet TAKE 1 TABLET BY MOUTH SATURDAY THROUGH SATURDAY. SKIP SATURDAY. - dexAMETHasone sodium phosphate (DECADRON) 4 mg/mL injection INJECT 1ML (4MG) INTRAMUSCULARLY EVERY 6 HOURS NEEDED FOR ADRENAL STRESS, USE WHEN VOMITING OR DIARRHEA PREVENTS USE OF THE ORAL DOSE. - desmopressin acetate (DDAVP) 0.1 mg tablet Take 0.1 mg by mouth three times daily. - liothyronine (CYTOMEL) 5 mcg tablet Take 5 mcg by mouth twice daily. - ezetimibe (ZETIA) 10 mg tablet Take 10 mg by mouth every morning. - REPATHA SURECLICK 140 mg/mL pen injector INJECT 140 MG UNDER THE SKIN EVERY 2 WEEKS - hydrOXYzine HCl (ATARAX) 25 mg tablet Take 25 mg by mouth as needed. - omeprazole (PRILOSEC) 40 mg capsule Take 40 mg by mouth as needed. - SUMAtriptan (IMITREX) 100 mg tablet Take 100 mg by mouth. - esterified estrogens-methylTESTOSTERone (ESTRATEST) 1.25-2.5 mg per tablet Take 1 tablet by mouth once daily. - tiZANidine (ZANAFLEX) 4 mg tablet Take 4 mg by mouth as needed. Problem List As Of Date 03/15/2025 Noted Resolved Hearing Impairment [[id number]] 09/27/2009 Migraines [G43.909] 05/31/2010 Chronic suppurative otitis media of both ears [*09/20/2011 Sleep apnea [G47.30] Trigeminal neuralgia [G50.0] Hearing difficulty [H91.90] Narcolepsy [G47.419] Hypothyroidism [E03.9] Hyperglycemia [R73.9] Osteopenia [M85.80] Dyslipidemia [E78.5] Fracture [T14.8XXA] Radiculopathy [M54.10] Chronic pain [G89.29] 09/24/2013 Adrenal insufficiency [E27.40] 10/29/2013 Rotator cuff (capsule) sprain [S43.429A] 08/12/2014 Intractable migraine without aura and without s*09/27/2015 Chronic daily headache [R51.9] 09/27/2015 Medication overuse headache [G44.40] 09/27/2015 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 Rectocele [N81.6] 12/06/2015 01/20/2016 Intractable chronic migraine without aura and w*12/14/2015 Conductive hearing loss, bilateral [H90.0] 06/09/2018 Tinnitus, bilateral [H93.13] 07/14/2018 Cholesteatoma, middle ear, 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] 08/05/2018 POTS (postural orthostatic tachycardia syndrome* Supraventricular tachycardia (HCC) [I47.10] 03/22/2023 Right inguinal hernia [K40.90] 07/03/2024 History of diverticulitis [Z87.19] 07/16/2024 Encounter Status:Closed by ALICIA SALAZAR on 03/15/25[facility]36on [id number] stress test from 02/10/2025 and PREM's: Yamila Matta, LAURI Bailey MA Please let her know her stress test was negative. PREM's were normal as well. No further testing needed at this time. Follow up in [address] Louis or Dr. Chavira, or sooner if needed. Thanks! Spoke with patient and informed her of normal testing. Told her we'd call to make an apt in Dec 2025. She verbalized understanding.[facility] DaytonNM kj perf SPECT rest stron [id number] kj perf SPECT rest str [facility] Main [place] [address] [place], [place] [id number] Nuclear Medicine Report Signed Patient: Pao Lion MR#: [id number] 933 : 1970 Acct:[id number] Age/Sex: 54 / F ADM Date: 02/10/25 Loc: NM Room: Type: [facility] Attending Dr: Yamila Matta BAND SHOVER-C Copies to: Aidan Monzon MD, [facility] Yamila Matta CNP Ordering Provider: Yamila Matta CNP Date of Service: 02/10/25 NM/NM kj perf SPECT rest str: R07.89 INDICATION: A 54-year-old patient with chest pain. Resting images were obtained after intravenous administration of 6.5 mCi of Cardiolite given on 02/10/2025, and stress images were obtained after intravenous administration of 18.9 mCi of Cardiolite given after Lexiscan administration on 02/10/2025. Subsequently, gated SPECT MPI was obtained. TOMOGRAPHIC DATA: Quality of study was fair. There is significant extracardiac tracer uptake. The study, though demonstrated no tomographic evidence of ischemia or prior myocardial infarction. The gated study is normal and demonstrated normal left ventricular volume and wall motion, ejection fraction 60% with normal TID at 0.92. CONCLUSION: 1. Normal Lexiscan Cardiolite SPECT MPI. 2. No tomographic evidence of ischemia or prior myocardial infarction. 3. Normal left ventricular volume and wall motion, ejection fraction 60% with normal TID at 0.92. No previous studies are available for comparison. Transcribed By: NTS 02/10/25 1817 Dictated By: Aidan Monzon MD, [facility] 02/10/25 1732 Signed By: 02/17/[address] [place] [address] Physician GroupSTR cardiac stress/lexiscanon [id number] cardiac stress/lexiscanASHTABULA [facility] Main [address] [address] Cardiac Stress Test Signed Patient: Pao Lion MR#: [id number] 933 : 1970 Acct:[id number] Age/Sex: 54 / F ADM Date: 02/10/25 Loc: [place] Room: Type: [facility] Attending Dr: Yamila HIGGINSC Copies to: Aidan Monzon MD, [facility] Yamila Matta CNP Ordering Provider: Yamila Matta CNP Date of Service: 02/10/25 STR/STR cardiac stress/lexiscan: R07.89 ORDERED BY: SHIRLEY Ortiz INDICATIONS: A 54-year-old patient with chest pain. Resting ECG revealed normal sinus rhythm with a rate of 75 beats per minute. Resting blood pressure 107/66 mmHg. Following intravenous administration of 400 mcg of Lexiscan over 10 seconds, no ischemic EKG changes were noted. No chest pain, no cardiac arrhythmias. Cardiolite study followed. CONCLUSION: 1. No Lexiscan-induced ischemic EKG changes, chest pain or cardiac arrhythmias. 2. Cardiolite studies to be reported separately by Nuclear Cardiology. Transcribed By: [facility] 02/11/25 1458 Dictated By: Aidan Monzon MD, [facility] 02/10/252001 Signed By: 02/17/[address] [place] [address] Physician GroupCNOVon [id number] Visit (CORSAV) PAO LION ([id number]) 1970 F Date Time Provider Department 02/09/25 11:20 AM DHEERAJ CHEN During your visit today, we recorded the following information about you: Pulse Blood pressure Weight Height 78/minute 120/79 62.8 kg 1.537 Dheeraj Olivera MD 02/09/2025 4:02 PM Signed [facility] NOTE February 09, 2025 Pao Lion 54 year old This consult was requested by Dr. Cali and my final recommendations will be communicated to the requesting health care provider by way of the shared medical record for internal providers or letter via the [employer] for external providers. Chief Complaint: thrombosed external hemorrhoid History of Present Illness: Pao Lion is a 54 year old woman s/p THD for hemorrhoids (05/2024, Dr. Cali) who presents today for evaluation of thrombosed external hemorrhoid. She reports a painful, bluish external hemorrhoid that began two days ago. She describes the pain as severe last night but notes some improvement today. She is concerned about the possibility of a thrombosed hemorrhoid and inquires about treatment options to prevent recurrence. Patient has been managing her symptoms with stool softeners (Colace 100 mg daily) and increased fluid intake. She recently discontinued low-dose naltrexone, prescribed for fibromyalgia, due to concerns that it was exacerbating her constipation. She reports a variable bowel movement pattern, alternating between constipation and diarrhea, with multiple bowel movements per day. She denies spending prolonged periods on the toilet and has not used fiber supplements recently due to previous episodes of diarrhea. She reports very rare episodes of rectal bleeding. Patient has a history of diverticulitis with multiple flare-ups and inquires about the necessity of surgical intervention. She also has a family history of diverticulitis requiring surgery. She reports that she does not always treat minor flare-ups with antibiotics, reserving treatment for episodes of intolerable pain. Had negative cologuard test in 2022. PAST MEDICAL HISTORY Diagnosis Date Dyslipidemia Fracture Hearing difficulty bilateral bone achored hearing aids - implants Hyperglycemia Hypothyroidism Migraine Narcolepsy Mild Osteopenia PMH - PAST MEDICAL HISTORY OF Thyroid problems PMH - PAST MEDICAL HISTORY OF rt. rotator cuff POTS (postural orthostatic tachycardia syndrome) Radiculopathy lower, right moderate, left mild Sleep apnea Trigeminal neuralgia Left PAST SURGICAL HISTORY Procedure Laterality Date ABDOMINOPLASTY UMBILICAL TRANSPOSITION AND FASCIAL 06/2017 LIG/TRNSXJ FLP TUBE ABDL/VAG APPR UNI/BI PAST SURGICAL HISTORY OF Ear surgery tubes PAST SURGICAL HISTORY OF deviated septum PAST SURGICAL HISTORY OF 2004 hysterectomy, vaginal taping PAST SURGICAL HISTORY OF epideral back injections PAST SURGICAL HISTORY OF Rt. rotator cuff repair PAST SURGICAL HISTORY OF 06/25/2011 IMPLANT OSSEOINTEGRATED IMPLANT TEMPORAL BONE W/ PERC ATTACH TO STIMULATOR W/O MASTOIDECTOMY PAST SURGICAL HISTORY OF 2012 right rotator cuff repair PAST SURGICAL HISTORY OF 2005 ovaries and fallopian tubes removed PAST SURGICAL HISTORY OF 11/2014 Interstim REPAIR INGUINAL HERNIA Right 07/30/2024 ROTATOR CUFF REPAIR Left TONSILLECTOMY AND ADENOIDECTOMY AGE 14/> Current Outpatient Medications Medication Sig Dispense Refill lisdexamfetamine (VYVANSE) 70 mg capsule Take (1) capsule by mouth upon awakening 90 capsule 0 XYWAV 0.5 gram/mL soln oral liquid Take 9 mL by mouth at bedtime and 4 hours after. 540 mL 5 carBAMazepine (TEGRETOL) 200 mg tablet Take 2 tablets by mouth three times a day. 180 tablet 11 keTORolac (TORADOL) 60 mg/2 mL soln INJECT 2ML INTRAMUSCULARLY ONE TIME ONLY FOR 1 DOSE 15 mL 3 ondansetron (ZOFRAN) 8 mg tablet Take by mouth three times a day as needed. levothyroxine (SYNTHROID) 50 mcg tablet TAKE 1 TABLET BY MOUTH SATURDAY THROUGH SATURDAY. SKIP SATURDAY. dexAMETHasone sodium phosphate (DECADRON) 4 mg/mL injection INJECT 1ML (4MG) INTRAMUSCULARLY EVERY 6 HOURS NEEDED FOR ADRENAL STRESS, USE WHEN VOMITING OR DIARRHEA PREVENTS USE OF THE ORAL DOSE. desmopressin acetate (DDAVP) 0.1 mg tablet Take 0.1 mg by mouth three times daily. liothyronine (CYTOMEL) 5 mcg tablet Take 5 mcg by mouth twice daily. ezetimibe (ZETIA) 10 mg tablet Take 10 mg by mouth every morning. REPATHA SURECLICK 140 mg/mL pen injector INJECT 140 MG UNDER THE SKIN EVERY 2 WEEKS hydrOXYzine HCl (ATARAX) 25 mg tablet Take 25 mg by mouth as needed. omeprazole (PRILOSEC) 40 mg capsule Take 40 mg by mouth as needed. SUMAtriptan (IMITREX) 100 mg tablet Take 100 mg by mouth. esterified estrogens-methylTESTOSTERone (ESTRATEST) 1.25-2.5 mg per tablet Take 1 tablet by m (more content not included)...NormalHighland District HospitalCNCOon [id number] TextNormalC[address] [id number] echo and carotid US from 01/22/2025: Yamila Matta, LAURI Bailey MA Please let her know here carotid US showed no significant narrowing. Her ECHO was normal, normal pumping function, no significant valve abnormalities. Please confirm if she had her stress test or ABIs yet. Thanks! Josi I just scanned PREM's in her chart and sent them to Josi for review. I spoke with patient and informer her echo and carotids are normal. She is scheduled for stress test in 2 weeks. Told her we would call with results once received. She verbalized understanding.[facility] DaytonUS art pvr/post Destiny [id number] art pvr/post [facility] Main [place] [address] [place], [place] [id number] Ultrasound Report Signed Patient: Pao Lion MR#: [id number] 933 : 1970 Acct:[id number] Age/Sex: 54 / F ADM Date: 01/22/25 Loc: Room: Type: [facility] Attending Dr: Yamila Matta BAND SHOVER-C Ordering Provider: Yamila Matta CNP Date of Service: 01/22/25 US/US art pvr/post LE: I73.9 Copies to: Yamila Matta CNP LOWER EXTREMITY SEGMENTAL ARTERIAL DOPSCAN (PVR) INDICATION: Claudication and pain in the feet while walking. PROCEDURE: Right arm blood pressure is 121 , left is 112 . Pressures throughout the right leg are 166 at the high thigh, at the 178 low thigh, 137 at the calf, 135 at the ankle using the posterior tibial artery, and 130 at the ankle using the dorsalis pedis artery with ankle- brachial index of 1.12 1.07 . Pressures throughout the left leg are 170 at the high thigh, at the 155 low thigh, 161 at the calf and 135 at the ankle using the posterior tibial artery, and 140 at the ankle using the dorsalis pedis artery with ankle-brachial index of 1.12 1.16. Wave forms by plethysmography are normal. US/US art pvr/post LE IMPRESSION: NO HEMODYNAMICALLY SIGNIFICANT PERIPHERAL VASCULAR OCCLUSIVE DISEASE AT REST IN EITHER LOWER EXTREMITY. There was no change with exercise. Impression dictated by: Jacky Vera MD01/25/2025 1:32 PM Dictation Location: [facility]04 Tech: Susannah Haq Transcribed By: CATIA 01/25/25 133 Dictated By: Jacky Vera MD 01/25/25 1330 Signed By: 01/25/25 133[facility] Physician GroupUS carotid doppler BIon [id number] carotid doppler [facility] Main [place] [address] [place] [id number] Ultrasound Report Signed Patient: Pao Lion MR#: [id number] 933 : 1970 Acct:[id number] Age/Sex: 54 / F ADM Date: 01/22/25 Loc: Room: Type: [facility] Attending Dr: Yamila Matta BAND SHOVER-C Ordering Provider: Yamila Matta CNP Date of Service: 01/22/25 US/US carotid doppler BI: [id number] Copies to: Yamila Matta CNP CAROTID DUPLEX INDICATION: Carotid bruit. PROCEDURE: Color-flow duplex scanning is used to interrogate the extracranial carotid arterial system, as well as both vertebral arteries. The proximal right internal carotid artery shows a highest peak systolic velocity of 69.8 cm/s with an end-diastolic velocity of 22.8 cm/s . The mid internal carotid artery measures 119 cm/s peak systolic with an end-diastolic velocity of 43.4 cm/s . The distal segment measures 96.7 cm/s peak systolic with an end diastolic velocity of 39.2 cm/s . The velocities of the right common carotid artery are 120 cm/s peak systolic and 28 cm/s end- diastolic proximally and 85.1 cm/s peak systolic and 23.6 cm/s end-diastolic distally. The peak systolic velocity ratio of the internal to the common carotid artery is 0.99 . The right external carotid artery measures 97.5 cm/s peak systolic. The right vertebral artery is patent at 44.7 cm/s peak systolic and with antegrade flow. The proximal left internal carotid artery shows a highest peak systolic velocity of 74.3 cm/s with an end-diastolic velocity of 25.2 cm/s . The mid internal carotid artery measures 86.2 cm/s peak systolic with an end-diastolic velocity of 34.3 cm/s . The distal segment measures 92.5 cm/s peak systolic with an end diastolic velocity of 35.7 cm/s . The velocities of the left common carotid artery are 121 cm/s peak systolic and 25.2 cm/s end-diastolic proximally and 90 cm/s peak systolic and 24.7 cm/s end-diastolic distally. The peak systolic velocity ratio of the internal to the common carotid artery is 0.76 . The left external carotid artery measures 74.7 cm/s peak systolic. The left vertebral artery is patent at 43.8 cm/s peak systolic with antegrade flow. US/US carotid doppler BI IMPRESSION: NO HEMODYNAMICALLY SIGNIFICANT STENOSIS OF EITHER EXTRACRANIAL INTERNAL CAROTID ARTERY. BOTH VERTEBRAL ARTERIES ARE PATENT WITH ANTEGRADE FLOW. Impression dictated by: Jacky Vera MD01/25/2025 1:28 PM Dictation Location: [place] [address] Tech: Eda Perera Transcribed By: [facility] 01/25/25 1328 Dictated By: Jacky Vera MD 01/25/25 1327 Signed By: 01/25/25 1328[facility] transthoracicon [id number] echo transthoracicASHTABULA [facility] Main [place] [address] [place] [address] Echocardiogram Signed Patient: Pao Lion MR#: [id number] : 1970 Acct:[id number] Age/Sex: 54 / F ADM Date: 01/22/25 Loc: Room: Type: [facility] Attending Dr: Yamila Matta BAND SHOVER-C Ordering Provider: Yamila Matta CNP Date of Service: 01/22/25/ ECH/ECH echo transthoracic: dyspnea, fatigue, cp Copies to: MD Yamila Baird LEAD FABRICATOR Pao Echeverria PM Patient Location: : 1970 Gender: Female (MM/DD/YYYY) Age: 54 Years Ordering Physician: Yamila Matta Height: 61 in Weight: 130.002 lb Performed By: TRAVON Gresham BSA: 1.57 m2 BP: 128 / 77 mmHg HR: 82 bpm Reason For Study: dyspnea, fatigue, cp History: HLD, SVT, POTS, CHF, family history of CAD/CHF + + Interpretation Summary Ejection Fraction = 55-60%. The left ventricular wall motion is normal. A variety of Doppler measurements indicate normal left ventricular diastolic function. Compared to prior study, there is no significant change. Procedure/Quality: A two-dimensional transthoracic echocardiogram with color flow and Doppler was performed. The study was technically good in quality. Left Ventricle: Ejection Fraction = 55-60%. The left ventricular size is normal. The left ventricular thickness is normal. The left ventricular wall motion is normal. A variety of Doppler measurements indicate normal left ventricular diastolic function. Left Atrium: The left atrium appears normal in size. Right Atrium: The right atrium appears normal in size. Right Ventricle: The right ventricle is normal in size and function. Aortic Valve: The aortic valve is normal in structure. No hemodynamically significant valvular aortic stenosis. No aortic regurgitation is present. Mitral Valve: The mitral valve is normal in structure. No significant mitral valve stenosis. There is no mitral regurgitation noted. Tricuspid Valve: The tricuspid valve is normal in structure. No tricuspid regurgitation. Pulmonic Valve: The pulmonic valve is not well visualized. No significant pulmonic regurgitation. Arteries: The aortic root is normal size. Pericardium/Pleura: No pericardial effusion seen. IVC/Hepatic Veins: The inferior vena cava is normal in size, with a normal collapsibility index. MMode/2D Measurements Calculations IVSd (0.7-1.1 cm): 1.00 cm LVIDd (3.7-5.4 cm): 4.2 cm LVPWd (0.7-1.1 cm): 1.00 cm LVIDs (2.3-3.6 cm): 2.9 cm LA dimension (2.3-4.0 cm): 3.5 Ao root diam (2.0-3.2 cm): 2.7 cm cm FS: 31.0 % Ao root area: 5.7 cm2 EDV(Teich): 78.6 ml LVOT diam: 2.00 cm ESV(Teich): 32.2 ml LVOT area: 3.1 cm2 EF(Teich): 59.0 % LAV(MOD-sp2): 21.2 ml LAV(MOD-sp4): 22.2 ml LA A2 area: 10.0 cm2 LA A4 area: 11.1 cm2 LA length (vol): 4.3 cm LA vol: 22.1 ml LA vol index: 14.0 ml/m2 Doppler Measurements Calculations MV E max zaria: 84.4 cm/sec Ao V2 max: 133.0 cm/sec MV A max zaria: 75.0 cm/sec Ao max P.1 mmHg MV V2 VTI: 22.6 cm Ao mean P.0 mmHg MV dec time: 0.23 sec Ao V2 mean: 96.4 cm/sec MV dec slope: 365.0 cm/sec?? Ao V2 VTI: 28.8 cm E/E' lat: 6.6 JOHNIE(I,D): 2.05 cm2 E/E' med: 8.2 JOHNIE(V,D): 2.34 cm2 TV max P.0 mmHg LV V1 max: 99.2 cm/sec TR max zaria: 173.0 cm/sec LV V1 max P.9 mmHg TR max P.0 mmHg LV V1 mean: 66.8 cm/sec RAP systole: 5.0 mmHg LV V1 mean P.00 mmHg LV V1 VTI: 18.8 cm + + + + + : Electronically : : : : signed by: Lazara : : : : Farhana : : : : on: 01/22/2025, : : 9:01 PM : Transcribed By: AGUSTINA Performed At: 01/22/25 1448 Signed By: Lazara Delcid MD 01/22/25 2101[facility] CNOVon [id number] Visit (NESLBO) PAO LION ([id number]) 1970 F Date Time Provider Department 01/13/25 4:20 PM DREW CASTELLANOS During your visit today, we recorded the following information about you: Pulse Blood pressure Weight Height 88/minute 125/81 56.7 kg 1.537 m Drew Castellanos MD 01/13/2025 4:16 PM Signed [facility] Follow up/ Established patient visit Date of last visit : 01/06/2024 Interval history : 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 Down from 04/27 to 02/25 No ADR No driving No cataplexy SLEEP HYGIENE QUESTIONS: Bedtime : [place] Wake up Time : 7-9 am Time it takes to fall sleep : < 15 minutes Activities in bed before falling asleep : None Number of times patient wakes up per night : 1 Reason (s) why patient wakes up during the night : medication Estimated total sleep time ( in a 24 hour period of time) : 7-8 Naps : Yes PATIENT-ENTERED QUESTIONNAIRE SLEEP SCORES 10/12/2024 Sleep Questions Reason for visit: Difficulty falling or staying asleep or poor sleep quality Excessive daytime sleepiness Narcolepsy Abnormal sleep/wake timing Multiple values from one day are sorted in reverse-chronological order 04/02/2024 07/08/2024 10/08/2024 [place] Sleepiness Scale Score 13 (Excessive daytime sleepiness present) 15 (Excessive daytime sleepiness present) 14 (Excessive daytime sleepiness present) 04/02/2024 07/08/2024 10/08/2024 PROMIS CAT Sleep Disturbance PROMIS Sleep Disturbance T-Score 44 (within normal limits) 45 (within normal limits) 49 (within normal limits) PROMIS Sleep Disturbance Percentile 73 69 54 06/27/2020 Insomnia Severity Index Score 28 06/27/2020 07/13/2022 Restless Leg Syndrome Score 16 (Moderate symptoms) 16 (Moderate symptoms) 04/02/2024 07/08/2024 10/08/2024 PHQ-9 Score 5 5 3 4 04/02/2024 07/08/2024 10/08/2024 PROMIS Global Health - (T-Scores - the mean of general population = 50. Five points is a clinically meaningful difference.) Physical T-Score 39.8 39.8 37.4 39.8 Mental T-Score 45.8 45.8 41.1 45.8 PMH, PSH, SH: POTS flare-up SLEEP RELATED ROS Review of Systems ALLERGIES Allergen Reactions Biaxin [Clarithromy* GI Upset Sutures Rash, Hives, Swelling, Itching Specifically, cat gut sutures Cymbalta [Duloxetin* Swelling Severe abdominal pain Demerol [Meperidine* Vomiting Indomethacin Swelling Had 4+ edema in legs and arms the day after taking a new prescription. Liquid Bandage (Cya* Rash Dermabond/exofin Morphine Vomiting Naproxen GI Upset Penicillins Rash, Hives Patient can tolerate Augmentin Vancomycin GI Upset Versed [Midazolam H* Vomiting Z Pack [Azithromyci* Rash, GI Upset CURRENT MEDICATIONS: lisdexamfetamine (VYVANSE) 70 mg capsule Take 1 capsule by mouth once daily for 30 days. Patient should start on December 26, 2024. XYWAV 0.5 gram/mL soln oral liquid Take 9 mL by mouth at bedtime and 4 hours after. carBAMazepine (TEGRETOL) 200 mg tablet Take 2 tablets by mouth three times a day. keTORolac (TORADOL) 60 mg/2 mL soln INJECT 2ML INTRAMUSCULARLY ONE TIME ONLY FOR 1 DOSE ondansetron (ZOFRAN) 8 mg tablet Take by mouth three times a day as needed. levothyroxine (SYNTHROID) 50 mcg tablet TAKE 1 TABLET BY MOUTH SATURDAY THROUGH SATURDAY. SKIP SATURDAY. dexAMETHasone sodium phosphate (DECADRON) 4 mg/mL injection INJECT 1ML (4MG) INTRAMUSCULARLY EVERY 6 HOURS NEEDED FOR ADRENAL STRESS, USE WHEN VOMITING OR DIARRHEA PREVENTS USE OF THE ORAL DOSE. liothyronine (CYTOMEL) 5 mcg tablet Take 5 mcg by mouth twice daily. ezetimibe (ZETIA) 10 mg tablet Take 10 mg by mouth every morning. REPATHA SURECLICK 140 mg/mL pen injector INJECT 140 MG UNDER THE SKIN EVERY 2 WEEKS hydrOXYzine HCl (ATARAX) 25 mg tablet Take 25 mg by mouth as needed. omeprazole (PRILOSEC) 40 mg capsule Take 40 mg by mouth as needed. SUMAtriptan (IMITREX) 100 mg tablet Take 100 mg by mouth. esterified estrogens-methylTESTOSTERone (ESTRATEST) 1.25-2.5 mg per tablet Take 1 tablet by mouth once daily. tiZANidine (ZANAFLEX) 4 mg tablet Take 4 mg by mouth as needed. lisdexamfetamine (VYVANSE) 70 mg capsule Take 1 capsule by mouth once daily for 30 days. [START ON 01/25/2025] lisdexamfetamine (VYVANSE) 70 mg capsule Take 1 capsule by mouth once daily for 30 days. Patient should start on January 25, 2025. Milnacipran (SAVELLA) 12.5 mg tab Take 12.5 mg by mouth once daily. desmopressin acetate (DDAVP) 0.1 mg tablet Take 0.1 mg by mouth three times daily. Prior Hypersomnia/Narcolepsy Medications (20 years) 12/26/2024 Hypersomnia/Narcolepsy Medications lisdexamfetamine dimesylate 70 mg DAILY ORAL -Rx End lisdexamfetamine dimesylate 70 mg DAILY ORAL sodium,calcium,mag,pot oxybate 4.5 g BEDTIME AND 4 HOURS AFTER ORAL Details Outpatient prescription Medicat (more content not included)...[facility]w michael [id number] head/brain wo/w [facility] Main [address] [address] MRI Report Signed Patient: Pao Lion MR#: [id number] : 1970 Acct:[id number] Age/Sex: 54 / F ADM Date: 01/04/25 Loc: MR Room: Type: [facility] Attending Dr: Ela Eugene MD Copies to: Ela Eugene MD Ordering Provider: Ela Eugene MD Date of Service: 01/04/25 MR/MR head/brain wo/w con: D35.2 MR head/brain wo/w con 01/04/2025 11:45 AM SIGN AND SYMPTOMS: History of pituitary cyst, and renal insufficiency with hormone changes, headaches PROTOCOL: Multiplanar multisequence MR images of the brain with and without IV contrast CONTRAST: 12 mL of intravenous ProHance COMPARISON: 12/03/2012 FINDINGS: Extra axial spaces: Age appropriate. Hemorrhage: None. Ventricular system: Within normal limits. Basal cisterns: Within normal limits and not effaced. Cerebral parenchyma: Normal in signal. No abnormal postcontrast enhancement. Midline shift: None.. Cerebellum: Within normal limits. Brainstem: Within normal limits. OTHER: Calvarium: Normal marrow signal. Vascular system: Satisfactory flow voids within the anterior and posterior circulation. Visualized Paranasal sinuses: Postoperative changes are noted in the paranasal sinuses suggesting previous bilateral antrectomy. Visualized Orbits: Within normal limits. Visualized upper cervical spine: Within normal limits. Sella and skull base: There is mild flattening of the dome of the pituitary which is not atypical for the patient's age. This is similar to the prior study. MR/MR head/brain wo/w con IMPRESSION: No acute intracranial pathology or abnormal postcontrast enhancement. There is mild flattening of the dome of the pituitary which is not atypical for the patient's age. This is similar to the prior study. No mass or abnormal postcontrast enhancement. Impression dictated by: Grady Harmon M.D.01/04/2025 5:10 PM Dictation Location: [place] [address] Transcribed By: CATIA 01/04/25 1710 Dictated By: Grady Harmon II, MD 01/04/25 5790 Signed By: 01/04/25 285[facility] Physician GroupMagnetic resonance imaging reportOrdered By: Grady Harmon on [id number] reportASHTABULA [place] [address] MRI Report Signed Patient: Pao Lion MR#: [id number] : 1970 Acct:[id number] Age/Sex: 54 / F ADM Date: 5 Loc: MR Room: Type: [facility] Attending Dr: Ela Eugene MD Copies to: Ela Eugene MD~ Ordering Provider: Ela Eugene MD Date of Service: 01/04/25 MR/MR head/brain wo/w con: D35.2 MR head/brain wo/w con 01/04/2025 11:45 AM SIGN AND SYMPTOMS: History of pituitary cyst, and renal insufficiency with hormone changes, headaches PROTOCOL: Multiplanar multisequence MR images of the brain with and without IV contrast CONTRAST: 12 mL of intravenous ProHance COMPARISON: 12/03/2012 FINDINGS: Extra axial spaces: Age appropriate. Hemorrhage: None. Ventricular system: Within normal limits. Basal cisterns: Within normal limits and not effaced. Cerebral parenchyma: Normal in signal. No abnormal postcontrast enhancement. Midline shift: None.. Cerebellum: Within normal limits. Brainstem: Within normal limits. OTHER: Calvarium: Normal marrow signal. Vascular system: Satisfactory flow voids within the anterior and posterior circulation. Visualized Paranasal sinuses: Postoperative changes are noted in the paranasal sinuses suggesting previous bilateral antrectomy. Visualized Orbits: Within normal limits. Visualized upper cervical spine: Within normal limits. Sella and skull base: There is mild flattening of the dome of the pituitary which is not atypical for the patient's age. This is similar to the prior study. MR/MR head/brain wo/w con IMPRESSION: No acute intracranial pathology or abnormal postcontrast enhancement. There is mild flattening of the dome of the pituitary which is not atypical for the patient's age. This is similar to the prior study. No mass or abnormal postcontrast enhancement. Impression dictated by: Grady Harmon M.D.01/04/2025 5:10 PM Dictation Location: [place] [address] Transcribed By: CATIA 01/04/25 1710 Dictated By: Grady Harmon II, MD 01/04/25 7010 Signed By: 01/04/25 1710 [facility] Work Phone: DEXA BONE DENSITYon [id number] BONE DENSITY Examination: DEXA BONE DENSITY Clinical History: osteoporosis Technique: Bone density study was performed. T score values for the lumbar spine, right femoral neck, left femoral neck and right forearm were obtained. Comparison: Lumbar spine, right femoral neck and left femoral neck values were obtained on 01/01/2023, right forearm value was obtained on 01/10/2023. Study was reported on 01/10/2023. Findings: Value for the lumbar spine from L1-L4 is -0.2. Value for the right femoral neck is -1.3. Value for the left femoral neck is -0.6. Value for the right forearm is -1.2. Findings are compatible with mild osteopenia with mild increased fracture risk. No evidence of osteoporosis. Study was compared to the exam which demonstrates similar findings. IMPRESSION: Impression: Findings compatible with mild osteopenia with mild increased fracture risk. Findings are similar to the prior exam. ELECTRONICALLY SIGNED BY: Timoteo Acevedo M.D.NormalNot AvailableSAINT ELIZABETH EDGEWOOD W Auto Differential panel (Bld)on [id number] (Bld) [#/Vol]0.05 10*3/uLNormal <0.11CSt. [facility]'s Hospital on above:Order Comment: Specimen Type: BLOOD SPECIMENOrdering Facility: [facility] Address:[address] [place], [place] [address]Performed By: #### 55585-5 ####[facility] LABCLIA [id number] [place] [address] Basophils/100 WBC (Bld)0.9 %NormalRegency Hospital [facility] on above: Order Comment: Specimen Type: BLOOD SPECIMENOrdering Facility: [facility] Address:[address] [place], [place] [address]Performed By: #### 98525- 8 ####[facility] LABCLIA [id number] [place], [place] [address]Zruvzmfbwoun cell count method Nom (Bld)AutoNormal [facility] on above:Order Comment: Specimen Type: BLOOD SPECIMENOrdering Facility: [facility] Address:[address] [place], [place] [address]Performed By: #### 78971-8 ####[facility] LABCLIA [id number] [place], [place] [address]Lyalsatuthm (Bld) [#/Vol]0.16 10*3/uLNormal<0.46[facility] on above: Order Comment: Specimen Type: BLOOD SPECIMENOrdering Facility: [facility] Address:[address] [place], [place] [address]Performed By: #### 75319- 8 ####[facility] LABCLIA [id number] [place], [place] [address]Aynyedarwnw/100 WBC (Bld)2.8 %NormalRegency Hospital [facility] on above:Order Comment: Specimen Type: BLOOD SPECIMENOrdering Facility: [facility] Address:[address] [place], [place] [address]Performed By: #### 34253-3 ####[facility] LABIA [id number] [place], [place] [address]Cbfyzzwzjij distribution width (RBC) [Ratio]13.3 %Kyurrp90.5-15.0[facility] on above: Order Comment: Specimen Type: BLOOD SPECIMENOrdering Facility: [facility] Address:[address] [place], [place] [address]Performed By: #### 18806- 8 ####[facility] LABIA [id number] [place], [place] [address]Tndxeclyqi (Bld) [Volume fraction]46.1 %High36.0-46.0 [facility] on above:Order Comment: Specimen Type: BLOOD SPECIMENOrdering Facility: [facility] Address:[address] [place], [place] [address]Performed By: #### 32328-9 ####[facility] LABCLIA [id number] [place], [place] [address]Skfliozfdc (Bld) [Mass/Vol]15.4 g/sLGhxlpo95.5-15.5CSt. Anthony's Hospital on above: Order Comment: Specimen Type: BLOOD SPECIMENOrdering Facility: [facility] Address:[address] [place], [place] [address]Performed By: #### 13133- 8 ####[facility] LABCLIA [id number] [place], [place] [address]Fkhzrkmj granulocytes (Bld) [#/Vol]10*3/uLNormal<0.10 [facility] on above:Order Comment: Specimen Type: BLOOD SPECIMENOrdering Facility: [facility] Address:[address] [place], [place] [address]Performed By: #### 04804-6 ####[facility] LABCLIA [id number] [place], [place] [address]Kscgajkw granulocytes/100 WBC (Bld)0.4 %[facility] on above: Order Comment: Specimen Type: BLOOD SPECIMENOrdering Facility: [facility] Address:[address] [place], [place] [address]Performed By: #### 00990- 8 ####[facility] LABCLIA [id number] [place], [place] [address]Ifsqhzwytbr (Bld) [#/Vol]1.34 10*3/uLNormal1.00-4.00 [facility] on above:Order Comment: Specimen Type: BLOOD SPECIMENOrdering Facility: [facility] Address:[address] [place], [place] [address]Performed By: #### 89222-6 ####[facility] LABCLIA [id number] [place], [place] [address]Rytwfkfkfzp/100 WBC (Bld)23.8 %NormalRegency Hospital [facility] on above:Order Comment: Specimen Type: BLOOD SPECIMENOrdering Facility: [facility] Address:[address] [place], [place] [address]Performed By: #### 69952-0 ####[facility] LABCLIA [id number] [place], [place] [address]BKF (RBC) [Entitic mass]30.7 mdZlusgi11.0-34.0[facility] on above:Order Comment: Specimen Type: BLOOD SPECIMENOrdering Facility: [facility] Address:[address] [place], [place] [address]Performed By: #### 87444-8 ####[facility] LABIA [id number] [place], [place] [address]BAOV (RBC) [Mass/Vol]33.4 g/sWJonlza55.5-36.0[facility] on above: Order Comment: Specimen Type: BLOOD SPECIMENOrdering Facility: [facility] Address:[address] [place], [place] [address]Performed By: #### 81565- 8 ####[facility] LABIA [id number] [place], [place] [address]QFL (RBC) [Entitic vol]92.0 kFOdcegl16.0-100.0[facility] on above:Order Comment: Specimen Type: BLOOD SPECIMENOrdering Facility: [facility] Address:[address] [place], [place] [address]Performed By: #### 63827-0 ####[facility] LABIA [id number] [place], [place] [address]Htndlsvgh (Bld) [#/Vol]0.34 10*3/uLNormal<0.87[facility] on above:Order Comment: Specimen Type: BLOOD SPECIMENOrdering Facility: [facility] Address:[address] [place], [place] [address]Performed By: #### 54707- 8 ####[facility] LABCLIA [id number] [place], [place] [address]Bqndibslz/100 WBC (Bld)6.0 %NormalRegency Hospital [facility] on above:Order Comment: Specimen Type: BLOOD SPECIMENOrdering Facility: [facility] Address:[address] [place], [place] [address]Performed By: #### 50611-3 ####[facility] LABCLIA [id number] [place], [place] [address]Cezbusyqdvw (Bld) [#/Vol]3.73 10*3/uLNormal1.45-7.50[facility] on above:Order Comment: Specimen Type: BLOOD SPECIMENOrdering Facility: [facility] Address:[address] [place], [place] [address]Performed By: #### 32645-0 ####[facility] LABCLIA [id number] [place], [place] [address]Smbsrbksetp/100 WBC (Bld)66.1 %NormalRegency Hospital [facility] on above:Order Comment: Specimen Type: BLOOD SPECIMENOrdering Facility: [facility] Address:[address] [place], [place] [address]Performed By: #### 92648-4 ####[facility] LABCLIA [id number] [place], [place] [address]Zcnzfmzpn RBC (Bld) [#/Vol] 10*3/uLNormal<0.01[facility] on above:Order Comment: Specimen Type: BLOOD SPECIMENOrdering Facility: [facility] Address:[address] [place], [place] [address]Performed By: #### 12170-6 ####[facility] LABCLIA [id number] [place], [place] [address]Revkvzcro RBC/100 WBC (Bld) [Ratio]0.0 /100 WBCNormal [facility] ClevelandComment on above:Order Comment: Specimen Type: BLOOD SPECIMENOrdering Facility: [facility] Address:[address] [place], [place] [address]Performed By: #### 98414-3 ####[facility] LABCLIA [id number] [place], [place] [address]Ufcccvkl mean volume (Bld) [Entitic vol]10.8 fLNormal9.0-12.7CSt. Anthony's Hospital on above:Order Comment: Specimen Type: BLOOD SPECIMENOrdering Facility: [facility] Address:[address] [place] [address] Performed By: #### 84540-3 ####[facility] LABCLIA [id number] [place], [place] [address]Evyfxgpqd (Bld) [#/Vol]248 10*3/vMYzdouy155-935KokdfetrkRegency Hospital Cleveland West on above:Order Comment: Specimen Type: BLOOD SPECIMENOrdering Facility: [facility] Address:[address] [place], [place] [address]Performed By: #### 23514-7 ####[facility] LABCLIA [id number] [place], [place] [address]IGD (Bld) [#/Vol]5.01 10*6/uLNormal3.90-5.20[facility] on above:Order Comment: Specimen Type: BLOOD SPECIMENOrdering Facility: [facility] Address:[address] [place], [place] [address]Performed By: #### 51078-0 ####[facility] LABCLIA [id number] [place], [place] [address]SGQ (Bld) [#/Vol]5.64 10*3/uLNormal3.70-11.00[facility] on above: Order Comment: Specimen Type: BLOOD SPECIMENOrdering Facility: [facility] Address:[address] [place], [place] [address]Performed By: #### 49829- 8 ####[facility] LABIA [id number] [place], [place] [address]ZDKJks 79-51-3233CKEDPzxfcgsqn (NHMNS2) PAO LION ([id number]) 1970 F Date Time Provider Department 12/30/24 PALOMO DAVALOS NHMNS2 During your visit today, we recorded the following information about you: Abbie Arango 12/30/2024 10:19 AM Signed Patient called in stating that she would like to speak to Botox Coordinator. Also for Botox, our office billed code [id number] and CPT code 27807 and if its going to be billed under CPT code, this needs a prior auth itself as well. Need to ask for a retro to cover 12/21/2024 bill going forward, since the CPT code was not authorized. Call back #: [phone] Okay to [facility]. Alea Vogel 01/22/2025 11:24 AM Signed Called patient and discussed her bill. Looks like claim was approved through insurance and all she owes is her co-insurance Allergies As of Date: 12/30/2024 Noted Allergy Reaction BIAXIN (CLARITHROMYCIN) 07/26/2010 8 - GI Upset SUTURES 10/29/2013 2 - Rash 4 - Hives 7 - Swelling 9 - Itching Comments: Specifically, cat gut sutures CYMBALTA (DULOXETINE) 06/20/2011 7 - Swelling Comments: Severe abdominal pain DEMEROL (MEPERIDINE (PF)) 05/31/2010 11 - Vomiting INDOMETHACIN 12/13/2010 7 - Swelling Comments: Had 4+ edema in legs and arms the day after taking a new prescription. LIQUID BANDAGE (CYANOACRYLATE) (E*08/20/2024 2 - Rash Comments: Dermabond/exofin MORPHINE 05/31/2010 11 - Vomiting NAPROXEN 01/05/2011 8 - GI Upset PENICILLINS 10/23/2004 2 - Rash 4 - Hives Comments: Patient can tolerate Augmentin VANCOMYCIN 12/08/2015 8 - GI Upset VERSED (MIDAZOLAM HCL) 05/31/2010 11 - Vomiting Z PACK (AZITHROMYCIN) 04/06/2011 2 - Rash 8 - GI Upset Date Reviewed: 12/21/2024 Reviewed by: rCistina Shah LPN - Fully Assessed Reason for Visit: Patient Question [1477] Cmt: Botox Prescriptions as of 01/22/2025 - lisdexamfetamine (VYVANSE) 70 mg capsule Take (1) capsule by mouth upon awakening Patient should start on February 23, 2025. - lisdexamfetamine (VYVANSE) 70 mg capsule Take 1 capsule by mouth once daily for 30 days. - lisdexamfetamine (VYVANSE) 70 mg capsule Take 1 capsule by mouth once daily for 30 days. Patient should start on December 26, 2024. - XYWAV 0.5 gram/mL soln oral liquid Take 9 mL by mouth at bedtime and 4 hours after. - carBAMazepine (TEGRETOL) 200 mg tablet Take 2 tablets by mouth three times a day. - keTORolac (TORADOL) 60 mg/2 mL soln INJECT 2ML INTRAMUSCULARLY ONE TIME ONLY FOR 1 DOSE - ondansetron (ZOFRAN) 8 mg tablet Take by mouth three times a day as needed. - levothyroxine (SYNTHROID) 50 mcg tablet TAKE 1 TABLET BY MOUTH SATURDAY THROUGH SATURDAY. SKIP SATURDAY. - dexAMETHasone sodium phosphate (DECADRON) 4 mg/mL injection INJECT 1ML (4MG) INTRAMUSCULARLY EVERY 6 HOURS NEEDED FOR ADRENAL STRESS, USE WHEN VOMITING OR DIARRHEA PREVENTS USE OF THE ORAL DOSE. - desmopressin acetate (DDAVP) 0.1 mg tablet Take 0.1 mg by mouth three times daily. - liothyronine (CYTOMEL) 5 mcg tablet Take 5 mcg by mouth twice daily. - ezetimibe (ZETIA) 10 mg tablet Take 10 mg by mouth every morning. - REPATHA SURECLICK 140 mg/mL pen injector INJECT 140 MG UNDER THE SKIN EVERY 2 WEEKS - hydrOXYzine HCl (ATARAX) 25 mg tablet Take 25 mg by mouth as needed. - omeprazole (PRILOSEC) 40 mg capsule Take 40 mg by mouth as needed. - SUMAtriptan (IMITREX) 100 mg tablet Take 100 mg by mouth. - esterified estrogens-methylTESTOSTERone (ESTRATEST) 1.25-2.5 mg per tablet Take 1 tablet by mouth once daily. - tiZANidine (ZANAFLEX) 4 mg tablet Take 4 mg by mouth as needed. Problem List As Of Date 12/30/2024 Noted Resolved Hearing Impairment [[id number]] 09/27/2009 Migraines [G43.909] 05/31/2010 Chronic suppurative otitis media of both ears [*09/20/2011 Sleep apnea [G47.30] Trigeminal neuralgia [G50.0] Hearing difficulty [H91.90] Narcolepsy [G47.419] Hypothyroidism [E03.9] Hyperglycemia [R73.9] Osteopenia [M85.80] Dyslipidemia [E78.5] Fracture [T14.8XXA] Radiculopathy [M54.10] Chronic pain [G89.29] 09/24/2013 Adrenal insufficiency [E27.40] 10/29/2013 Rotator cuff (capsule) sprain [S43.429A] 08/12/2014 Intractable migraine without aura and without s*09/27/2015 Chronic daily headache [R51.9] 09/27/2015 Medication overuse headache [G44.40] 09/27/2015 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 Rectocele [N81.6] 12/06/2015 01/20/2016 Intractable chronic migraine without aura and w*12/14/2015 Conductive hearing loss, bilateral [H90.0] 06/09/2018 Tinnitus, bilateral [H93.13] 07/14/2018 Cholesteatoma, middle ear, 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] 08/05/2018 POTS (postural orthostatic tachycardia syndrome* Supraventricular tachycardia (HCC) [I47.10] 03/22/2023 Right inguinal hernia [K40.90] 07/03/2024 History of diverticulitis [Z87.19] 07/16/2024 Encounter Status:Closed by DWAYNE BARRON, (more content not included)...Normal [facility] Ab IF Ql (S)on 46-20-8547Rkbwlfkhts Ab Qn (S)<0.2Normal<1.0[facility] HospitalComment on above:Order Comment: Specimen Type: BLOOD SPECIMENOrdering Facility: [facility] Address:[address] [place], [place] [address]Result Comment: Anti-centromere antibody is used as in aid in diagnosis of systemic sclerosis. Clinical correlation is required. Test Methodology: Multiplex flow immunoassay.Performed By: #### 85131-0, 15454- 4, 36279-6, 62155-6, 35773-9, 29131-9, 41472-8, 07950-6 ####[facility] LABCLIA [id number] [place] [address] [place] GRANT HOSPITALCENTROMERE AB QUALNegativeNormalNegativeHighland District HospitalComment on above:Order Comment: Specimen Type: BLOOD SPECIMENOrdering Facility: [facility] Address:[address] [place], [place] [address]Performed By: #### 87107-7, 93696-1, 72767-1, 40752-6, 46608-1, 89006-9, 49047-9, 69615-9 ####[facility] LABCLIA [id number] [place] [address] [place] AMERICAChromatin Ab Qnon 62-05-8846MYGXMQXPV AB QUALNegativeNormalNegativeHighland District Hospital Comment on above:Order Comment: Specimen Type: BLOOD SPECIMENOrdering Facility: [facility] Address:[address] [place] [address] Performed By: #### 09567-3, 50056-5, 39271-9, 75021-7, 32125-5, 35194-3, 04473- 9, 06528-3 ####[facility] LABIA [id number] [place] [address] [place] AMERICAChromatin Ab SerPl-aCncon 71-74-0797Frxqfjjxt Ab Qn<0.2Normal<1.0[facility] Comment on above:Order Comment: Specimen Type: BLOOD SPECIMENOrdering Facility: [facility] Address:[address] [place], [place] [address]Result Comment: Test Methodology: Multiplex flow immunoassay.Performed By: #### 72587- 6, 96273-0, 65499-1, 63971-2, 38069-5, 97854-3, 02177-3, 58695-9 ####[facility] LABCLIA [id number] [facility] [place] [address] [facility] OF AMERICAComprehensive metabolic 2000 panelon 12-30-2024 Albumin [Mass/Vol]4.9 g/dLNormal3.9-4.9CSt. [facility]'s Hospital on above:Order Comment: Specimen Type: BLOOD SPECIMENOrdering Facility: [facility] Address:[address] [place], [place] [address]Performed By: #### 87463-3 ####[facility] LABCLIA [id number] [place], [place] [address]HHD [Catalytic activity/Vol]47 U/UVmugkm99-333 [facility] on above:Order Comment: Specimen Type: BLOOD SPECIMENOrdering Facility: [facility] Address:[address] [place], [place] [address]Performed By: #### 23047-6 ####[facility] LABCLIA [id number] [place], [place] [address]ZCE [Catalytic activity/Vol]16 U/LNormal7-38[facility] on above:Order Comment: Specimen Type: BLOOD SPECIMENOrdering Facility: [facility] Address:[address] [place], [place] [address]Performed By: #### 46977- 8 ####[facility] LABCLIA [id number] [place], [place] [address]Pbbxw gap [Moles/Vol]12 mmol/LNormal8-15[facility] on above:Order Comment: Specimen Type: BLOOD SPECIMENOrdering Facility: [facility] Address:[address] [place], [place] [address]Performed By: #### 22724-4 ####[facility] LABCLIA [id number] [place], [place] [address]IVO [Catalytic activity/Vol]18 U/LYwdhom50-81BwtbrfyhpRegency Hospital [facility] on above:Order Comment: Specimen Type: BLOOD SPECIMENOrdering Facility: [facility] Address:[address] [place], [place] [address]Performed By: #### 80374-6 ####[facility] LABCLIA [id number] [place] [address] Bilirubin [Mass/Vol]0.3 mg/dLNormal0.2-1.3CSt. [facility]'s Hospital on above:Order Comment: Specimen Type: BLOOD SPECIMENOrdering Facility: [facility] Address:[address] [place], [place] [address]Performed By: #### 73954-0 ####[facility] LABCLIA [id number] [place], [place] [address]Wtqyjcb [Mass/Vol]10.2 mg/dLNormal8.5-10.2CSt. [facility]'s Hospital on above:Order Comment: Specimen Type: BLOOD SPECIMENOrdering Facility: [facility] Address:[address] [place], [place] [address]Performed By: #### 61770-6 ####[facility] LABCLIA [id number] [place], [place] [address]Cndgqwtc [Moles/Vol]103 mmol/KKxvrpw91-324KclnyhepfRegency Hospital [facility] on above: Order Comment: Specimen Type: BLOOD SPECIMENOrdering Facility: [facility] Address:[address] [place], [place] [address]Performed By: #### 14806- 8 ####[facility] LABCLIA [id number] [place], [place] [address]NY1 [Moles/Vol]26 mmol/VGpthhz76-24TngbcqrlhRegency Hospital [facility] on above:Order Comment: Specimen Type: BLOOD SPECIMENOrdering Facility: [facility] Address:[address] [place] [address]Rtaowbudy By: #### 50412-5 ####[facility] LABCLIA [id number] [place], [place] [address]Fuuztvsngp [Mass/Vol]0.84 mg/dL Normal0.58-0.96[facility] on above:Order Comment: Specimen Type: BLOOD SPECIMENOrdering Facility: [facility] Address:[address] [place], [place] [address]Performed By: #### 95370-8 ####[facility] LABCLIA [id number] [place], [place] [address]Antzeadbsx and Glomerular filtration rate.predicted panel (S/P/Bld)84 mL/min/1.73m???Normal>=60[facility] on above:Order Comment: Specimen Type: BLOOD SPECIMENOrdering Facility: [facility] Address:[address] [place], [place] [address]Result Comment: Estimated Glomerular Filtration Rate (eGFR) is calculated using the 2020 CKD-EPI creatinine equation. This equation utilizes serum creatinine, sex, and age as parameters. The creatinine assay has traceable calibration to isotope dilution- mass spectrometry. Refer to KDIGO guidelines for clinical interpretation. In patients with unstable renal function, e.g. those with acute kidney injury, the eGFR may not accurately reflect actual GFR.Performed By: #### 99944-2 ####[facility] LABCLIA [id number] [place], [place] [address]Bpcarru [Mass/Vol]91 mg/rTOklndt79-13PlaaqfvfqRegency Hospital [facility] on above:Order Comment: Specimen Type: BLOOD SPECIMENOrdering Facility: [facility] Address:[address] [place], [place] [address]Result Comment: The [place] Diabetes Association (ADA) provides guidance for cutoff values for fasting glucose and random glucose. The ADA defines fasting as no caloric intake for at least 8 hours. Fasting plasma glucose results between 100 to 125 mg/dL indicate increased risk for diabetes (prediab etes). Fasting plasma glucose results greater than or equal to 126 mg/dL meet the criteria for diagnosis of diabetes. In the absence of unequivocal hyperglycemia, results should be confirmed by repeat testing. In a patient with classic symptoms of hyperglycemia or hyperglycemic crisis, random plasma glucose results greater than or equal to 200 mg/dL meet the criteria for diagnosis of diabetes. Reference: Standards of Medical Care in Diabetes 2016, [place] Diabetes Association. Diabetes Care. 2016.39(Suppl 1).Performed By: #### 73777-0 ####[facility] LABCLIA [id number] [place], [place] [address]Ryxymwyyn [Moles/Vol]4.3 mmol/LNormal3.7-5.1CSt. Anthony's Hospital on above:Order Comment: Specimen Type: BLOOD SPECIMENOrdering Facility: [facility] Address:[address] [place], [place] [address]Performed By: #### 71335-1 ####[facility] LABCLIA [id number] [place], [place] [address]Fiwxhge [Mass/Vol]7.5 g/dLNormal6.3-8.0[facility] on above:Order Comment: Specimen Type: BLOOD SPECIMENOrdering Facility: [facility] Address:[address] [place], [place] [address]Performed By: #### 25089- 8 ####[facility] LABCLIA [id number] [place], [place] [address]Nikvzz [Moles/Vol]141 mmol/AMqjezc197-025QzyudgmvjRegency Hospital [facility] on above:Order Comment: Specimen Type: BLOOD SPECIMENOrdering Facility: [facility] Address:[address] [place], [place] [address]Performed By: #### 32721-6 ####[facility] LABCLIA [id number] [place], [place] [address]Mvpz nitrogen [Mass/Vol]13 mg/dLNormal7-21[facility] on above:Order Comment: Specimen Type: BLOOD SPECIMENOrdering Facility: [facility] Address:[address] [place], [place] [address]Performed By: #### 08726-8 ####[facility] LABCLIA [id number] [place], [place] [address]JYG Jo1 Ab Ser-aCncon 11-77-1662Jw-1 extractable nuclear Ab Qn (S)<0.2Normal<1.0[facility] on above:Order Comment: Specimen Type: BLOOD SPECIMENOrdering Facility: [facility] Address:[address] [place], [place] [address]Performed By: #### 51226-1, 00444-8, 87703-4, 81743-7, 28765-7, 14511-1, 82394-3, 41384-3 ####[facility] LABCLIA [id number] [place] [address] [place] AMERICAENA MAINFRAME SYSTEMS ENGINEER Ab Ser-aCncon 86-04-4933Tziifrghvubukbzwc extractable nuclear Ab Qn (S)<0.2Normal<1.0[facility] on above:Order Comment: Specimen Type: BLOOD SPECIMENOrdering Facility: [facility] Address:[address] [place], [place] [address]Performed By: #### 94034- 6, 92855-0, 16628-2, 36159-7, 77466-3, 48857-2, 94244-2, 17815-9 ####[facility] LABIA [id number] [place] [address] [place] AMERICAENA SM IgG Ser-aCncon 62-77-5143Cferi extractable nuclear IgG Qn (S)<0.2Normal<1.0[facility] on above:Order Comment: Specimen Type: BLOOD SPECIMENOrdering Facility: [facility] Address:[address] [place], [place] [address]Performed By: #### 39804- 6, 99087-9, 70457-5, 87984-4, 25614-6, 81038-1, 26409-8, 16515-2 ####[facility] LABCLIA [id number] [address] OF GRANT HOSPITALENA SS-A Ab Ser-aCncon 92-75-0203Bawxnagf syndrome-A extractable nuclear Ab Qn (S)0.2 AINormal<1.0[facility] on above:Order Comment: Specimen Type: BLOOD SPECIMENOrdering Facility: [facility] Address:[address] [place], [place] [address]Result Comment: Test Methodology: Multiplex flow immunoassay.Performed By: #### 26240-7, 41130-1, 18491-0, 17332-9, 67300-7, 46417-4, 42511-8, 12172-6 ####[facility] LABCLIA [id number] [address]ENA SS-B Ab Ser-aCncon 12-30-2024 Sjogrens syndrome-B extractable nuclear Ab Qn (S)<0.2Normal<1.0[facility] on above:Order Comment: Specimen Type: BLOOD SPECIMENOrdering Facility: [facility] Address:[address] [place], [place] [address]Result Comment: Anti-SSB (anti-La) antibody is used as an aid in diagnosis of a variety of systemicautoimmune diseases, especially for Sjogren's syndrome and systemic lupus erythematosus. Clinical correlation is required. Test Methodology: Multiplex flow immunoassay.Performed By: #### 55657-7, 38590- 4, 61585-1, 24960-3, 77445-9, 18445-3, 66906-0, 96828-9 ####[facility] LABCLIA [id number] [address]ETHbA1c (Bld)on 45-57-2598Lcvtbzt glucose Estimated from glycated hemoglobin (Bld) [Mass/Vol]91 mg/dLNormalCThe [facility] Comment on above:Order Comment: Specimen Type: BLOOD SPECIMENOrdering Facility: [facility] Address:[address] [place], [place] [address]Result Comment: eAG: (Estimated average glucose) is a calculated value from HgbA1c and is retail wireless sales representative of the average blood glucose level in the last 2-3 month period.Performed By: #### 30394-9 ####[facility]ENTERIA [id number] [address] STATES OF [facility] HbA1c (Bld) [Mass fraction]4.8 %Normal4.3-5.6CThe Jewish HospitalComment on above:Order Comment: Specimen Type: BLOOD SPECIMENOrdering Facility: [facility] Address:[address] [place] [address] Comment: [place] Diabetes Association guidelines indicate that patients with HgbA1c in the range 5.7-6.4% are at increased risk for development of diabetes, and intervention by lifestyle modification may be beneficial. HgbA1c greater or equal to 6.5% is considered diagnostic of diabetes.Performed By: #### 63135-1 ####[facility] [id number] [address] STATES OF GRANT HOSPITALJo-1 extractable nuclear Ab Qn (S)on 00-12-8738YL 1 ANTIBODY QUALNegativeNormalNegativeReg[facility] on above:Order Comment: Specimen Type: BLOOD SPECIMENOrdering Facility: [facility] Address:[address] [place], [place] [address]Result Comment: Anti-CELIA-1 antibody is used as an aid in diagnosis of polymyositis and dermatomyositis especially with pulmonary involvement. A negative result cannot rule out polymyositis or dermatomyositis. Clinical correlation is required. Test Methodology: Multiplex flow immunoassay.Performed By: #### 34510-9, 49334- 4, 53957-1, 09592-8, 13404-6, 99381-0, 58683-8, 56005-4 ####[facility] LABIA [id number] [place] [address] [place] AMERICAPROTEIN ELECTROPHORESIS SERUM WITH TOI (P)on 12-30-2024 Albumin [Mass/Vol]4.54 g/dLNormal3.43-5.41[facility] on above:Order Comment: Specimen Type: BLOOD SPECIMENOrdering Facility: [facility] Address:[address] [place], [place] [address]Performed By: #### [id number] ####[facility] LABIA [id number] [place] [address] [place] AMERICAAlpha 1 globulin Elph [Mass/Vol]0.23 g/dLNormal0.18-0.43[facility] on above: Order Comment: Specimen Type: BLOOD SPECIMENOrdering Facility: [facility] Address:[address] [place], [place] [address]Performed By: #### [id number] ####[facility] LABIA [id number] [place] [address] [place] AMERICAAlpha 2 globulin Elph [Mass/Vol]0.66 g/dLNormal0.42-0.98[facility] on above: Order Comment: Specimen Type: BLOOD SPECIMENOrdering Facility: [facility] Address:[address] [place], [place] [address]Performed By: #### [id number] ####[facility] LABIA [id number] [place] [address] [place] AMERICABeta globulin Elph [Mass/Vol]0.58 g/dLLow0.61-1.17[facility] on above:Order Comment: Specimen Type: BLOOD SPECIMENOrdering Facility: [facility] Address:[address] [place], [place] [address]Performed By: #### [id number] ####[facility] LABST [facility] [id number] [id number] [address] [place] AMERICACOMMENT (SERUM PROT ELECTRO)Monoclonal Protein analysis (immunofixation) is not indicated.Normal [facility] on above:Order Comment: Specimen Type: BLOOD SPECIMENOrdering Facility: [facility] Address:[address] [place], [place] [address]Performed By: #### [id number] ####[facility] LABIA [id number] [address] STATES OF AMERICAGamma globulin Elph [Mass/Vol]0.99 g/dLNormal0.53-1.51[facility] on above:Order Comment: Specimen Type: BLOOD SPECIMENOrdering Facility: [facility] Address:[address] [place], [place] [address]Performed By: #### [id number] ####[facility] LABIA [id number] [address] [place] M-PROTEIN LOCATIONNormalCSt. Anthony's Hospital on above:Order Comment: Specimen Type: BLOOD SPECIMENOrdering Facility: [facility] Address:[address] [place], [place] [address]Result Comment: Not Applicable.Performed By: #### [id number] ####[facility] LABIA [id number] [place] [address] [place] Protein Fractions [Interp]No definitive M protein is identified on protein electrophoresis.NormalNo definitive M protein is identified on protein electrophoresis.[facility] on above:Order Comment: Specimen Type: BLOOD SPECIMENOrdering Facility: [facility] Address:[address] [place], [place] [address]Performed By: #### [id number] ####[facility] LABIA [id number] [place] [address] [place] AMERICAProtein.monoclonal Elph [Mass/Vol]0.00 g/dLNormal<=0.00[facility] on above:Order Comment: Specimen Type: BLOOD SPECIMENOrdering Facility: [facility] Address:[address] [place], [place] [address]Performed By: #### [id number] ####[facility] LABIA [id number] [place] [id number] [place] GRANT HOSPITALSPE STAFF REVIEW Reviewed by Crow RobertsSt. Anthony's [facility] on above: Order Comment: Specimen Type: BLOOD SPECIMENOrdering Facility: [facility] Address:[address] [place], [place] [address]Performed By: #### [id number] ####[facility] LABIA [id number] [place] [address] [place] AMERICAProt SerPl-mCncon 74-63-7610Rtwiehz [Mass/Vol]7.0 g/dLNormal6.3-8.0[facility] Comment on above:Order Comment: Specimen Type: BLOOD SPECIMENOrdering Facility: [facility] Address:[address] [place] [address] Performed By: #### 2885-2, 2132-9 ####[facility]ENTERIA [id number] [place] [address] [place] Ribonucleoprotein extractable nuclear Ab Qn (S)on 23-71-7612VDWC-MAINFRAME SYSTEMS ENGINEER QUAL NegativeNormalNegativeHighland District HospitalComc.[facility]. [facility] on above:Order Comment: Specimen Type: BLOOD SPECIMENOrdering Facility: [facility] Address:[address] [place], [place] [address]Performed By: #### 86234-6, 01327-7, 89984-0, 76795-1, 00543-8, 37310-3, 70874-8, 62286-3 ####[facility] [id number] [place] [address] [place] AMERICARIBOSOMAL MAINFRAME SYSTEMS ENGINEER QUALNegativeNormalNegativeHighland District HospitalComc.[facility]. [facility] on above:Order Comment: Specimen Type: BLOOD SPECIMENOrdering Facility: [facility] Address:[address] [place], [place] [address]Result Comment: Anti-Ribosomal RNA (Ribosomal P) antibody is used as an aid in diagnosis of systemic autoimmune diseases especially systemic lupus erythematosus and mixed connective tissue disease. Cross-reactivity with Anti- peoples antibody is not uncommon. Clinical correlation is required. Test Methodology: Multiplex flow immunoassay.Performed By: #### 92907-7, 41296- 4, 82513-1, 57815-4, 96422-1, 98627-1, 56692-6, 16098-3 ####[facility] LABCLIA [id number] [place] [address] [place] AMERICASCL-70 extractable nuclear IgG IA Qn (S)on 12-30-2024 SCLERODERMA AB QUALNegativeNormalNegativeReg[facility] on above:Order Comment: Specimen Type: BLOOD SPECIMENOrdering Facility: [facility] Address:[address] [place], [place] [address]Performed By: #### 07134-8, 33877-1, 29301-9, 56196-3, 47111-3, 40799-5, 32156-4, 72047-9 ####[facility] LABIA [id number] [place] [address] [place] AMERICASCLERODERMA IGG AB<0.2Normal<1.0 [facility] on above:Order Comment: Specimen Type: BLOOD SPECIMENOrdering Facility: [facility] Address:[address] [place], [place] [address]Result Comment: Scl-70/Scleroderma antibody test is used as an aid in diagnosis of systemic sclerosis especially the diffuse cutaneous form. A negative result cannot rule out systemic sclerosis. The final interpretation should consider clinical picture and other test results such as anti-centromere antibody. Test Methodology: Multiplex flow immunoassay.Performed By: #### 60837- 6, 36009-6, 03811-7, 59973-9, 37901-8, 51974-2, 98232-2, 22786-4 ####[facility] LABCLIA [id number] [place] [address] [place] AMERICASjogrens syndrome-A extractable nuclear Ab Qn (S) on 37-69-2626KBI ANTIBODY QUALNegativeNormalNegativeHighland District Hospital Comment on above:Order Comment: Specimen Type: BLOOD SPECIMENOrdering Facility: [facility] Address:[address] [place] [address] Performed By: #### 32838-8, 55629-4, 35588-1, 54460-2, 09567-0, 13140-4, 98372- 9, 96447-3 ####[facility] LABCLIA [id number] [place] [address] [place] OF AMERICASjogrens syndrome-B extractable nuclear Ab Qn (S)on [id number] ANTIBODY QUALNegativeNormal NegativeHighland District HospitalComment on above:Order Comment: Specimen Type: BLOOD SPECIMENOrdering Facility: [facility] Address:[address] [place], [place] [address]Performed By: #### 22560-3, 82413-1, 26763-8, 36419-4, 13853-3, 08175-1, 41822-5, 47914-5 ####[facility] LABCLIA [id number] [place] [address] [place] OF AMERICASmith extractable nuclear IgG Qn (S)on 59-58-9576OQ ANTIBODY QUAL NegativeNormalNegativeUC Healthment on above:Order Comment: Specimen Type: BLOOD SPECIMENOrdering Facility: [facility] Address:[address] [place], [place] [address]Result Comment: Anti-Sm (Peoples) antibody is used as an aid in diagnosis of systemic lupus erythematosus and its presence is associated with renal disease. A negative result cannot rule out systemic lupus erythematosus. Clinical correlation is required. Test Methodology: Multiplex flow immunoassay.Performed By: #### 04370-2, 61851- 4, 89912-4, 18707-2, 57768-1, 70020-7, 79353-3, 32756-3 ####[facility] LABCLIA [id number] MICHAELRan [facility] [place] [address] [place] OF AMERICAVit B12 SerPl-mCncon 98-32-3786Wnzldklwn (Vitamin B12) [Mass/Vol]438 pg/qZDfrgcx936-6932Pwluehqct Clinic ClevelandComment on above: Order Comment: Specimen Type: BLOOD SPECIMENOrdering Facility: [facility] Address:[address], [place] [address]Performed By: #### 2885- 2, 2132-9 ####[facility] LABIA [id number] [address] STATES OF AMERICACNPNon [id number] Telephone (NENMMN) PAO LION ([id number]) 1970 F Date Time Provider Department 12/25/24 ELLIOT PUGARIMAT During your visit today, we recorded the following information about you: Elliot Puga RN 12/25/2024 9:48 AM Signed Pt hasn't read [employer] message regarding appt tomorrow staying virtual Called and spoke to pt She voices understanding and appreciation to clarify appt type Elliot Puga [facility] Allergies As of Date: 12/25/2024 Noted Allergy Reaction BIAXIN (CLARITHROMYCIN) 07/26/2010 8 - GI Upset SUTURES 10/29/2013 2 - Rash 4 - Hives 7 - Swelling 9 - Itching Comments: Specifically, cat gut sutures CYMBALTA (DULOXETINE) 06/20/2011 7 - Swelling Comments: Severe abdominal pain DEMEROL (MEPERIDINE (PF)) 05/31/2010 11 - Vomiting INDOMETHACIN 12/13/2010 7 - Swelling Comments: Had 4+ edema in legs and arms the day after taking a new prescription. LIQUID BANDAGE (CYANOACRYLATE) (E*08/20/2024 2 - Rash Comments: Dermabond/exofin MORPHINE 05/31/2010 11 - Vomiting NAPROXEN 01/05/2011 8 - GI Upset PENICILLINS 10/23/2004 2 - Rash 4 - Hives Comments: Patient can tolerate Augmentin VANCOMYCIN 12/08/2015 8 - GI Upset VERSED (MIDAZOLAM HCL) 05/31/2010 11 - Vomiting Z PACK (AZITHROMYCIN) 04/06/2011 2 - Rash 8 - GI Upset Date Reviewed: 12/21/2024 Reviewed by: Cristina Shah LPN - Fully Assessed Prescriptions as of 12/25/2024 - lisdexamfetamine (VYVANSE) 70 mg capsule Take 1 capsule by mouth once daily for 30 days. - lisdexamfetamine (VYVANSE) 70 mg capsule Take 1 capsule by mouth once daily for 30 days. Patient should start on December 26, 2024. - lisdexamfetamine (VYVANSE) 70 mg capsule Take 1 capsule by mouth once daily for 30 days. Patient should start on January 25, 2025. - XYWAV 0.5 gram/mL soln oral liquid Take 9 mL by mouth at bedtime and 4 hours after. - carBAMazepine (TEGRETOL) 200 mg tablet Take 2 tablets by mouth three times a day. - Milnacipran (SAVELLA) 12.5 mg tab Take 12.5 mg by mouth once daily. - keTORolac (TORADOL) 60 mg/2 mL soln INJECT 2ML INTRAMUSCULARLY ONE TIME ONLY FOR 1 DOSE - ondansetron (ZOFRAN) 8 mg tablet Take by mouth three times a day as needed. - levothyroxine (SYNTHROID) 50 mcg tablet TAKE 1 TABLET BY MOUTH SATURDAY THROUGH SATURDAY. SKIP SATURDAY. - dexAMETHasone sodium phosphate (DECADRON) 4 mg/mL injection INJECT 1ML (4MG) INTRAMUSCULARLY EVERY 6 HOURS NEEDED FOR ADRENAL STRESS, USE WHEN VOMITING OR DIARRHEA PREVENTS USE OF THE ORAL DOSE. - desmopressin acetate (DDAVP) 0.1 mg tablet Take 0.1 mg by mouth three times daily. - liothyronine (CYTOMEL) 5 mcg tablet Take 5 mcg by mouth twice daily. - ezetimibe (ZETIA) 10 mg tablet Take 10 mg by mouth every morning. - REPATHA SURECLICK 140 mg/mL pen injector INJECT 140 MG UNDER THE SKIN EVERY 2 WEEKS - hydrOXYzine HCl (ATARAX) 25 mg tablet Take 25 mg by mouth as needed. - omeprazole (PRILOSEC) 40 mg capsule Take 40 mg by mouth as needed. - SUMAtriptan (IMITREX) 100 mg tablet Take 100 mg by mouth. - esterified estrogens-methylTESTOSTERone (ESTRATEST) 1.25-2.5 mg per tablet Take 1 tablet by mouth once daily. - tiZANidine (ZANAFLEX) 4 mg tablet Take 4 mg by mouth as needed. 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] Hypothyroidism [E03.9] Hyperglycemia [R73.9] Osteopenia [M85.80] Dyslipidemia [E78.5] Fracture [T14.8XXA] Radiculopathy [M54.10] Chronic pain [G89.29] 09/24/2013 Adrenal insufficiency [E27.40] 10/29/2013 Rotator cuff (capsule) sprain [S43.429A] 08/12/2014 Intractable migraine without aura and without s*09/27/2015 Chronic daily headache [R51.9] 09/27/2015 Medication overuse headache [G44.40] 09/27/2015 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 Rectocele [N81.6] 12/06/2015 01/20/2016 Intractable chronic migraine without aura and w*12/14/2015 Conductive hearing loss, bilateral [H90.0] 06/09/2018 Tinnitus, bilateral [H93.13] 07/14/2018 Cholesteatoma, middle ear, 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] 08/05/2018 POTS (postural orthostatic tachycardia syndrome* Supraventricular tachycardia (HCC) [I47.10] 03/22/2023 Right inguinal hernia [K40.90] 07/03/2024 History of diverticulitis [Z87.19] 07/16/2024 Encounter Status:Closed by ELLIOT PUGA on 12/25/24[facility] [id number] Pao Lion 1970 F Date Provider Department Center 12/24/2024 Damian-YAMILA MATTA [facility] Family History Problem Relation Age of Onset Stroke Mother Atrial fibrillation Father Hypertension Father Family Status - Relation Status Age at Mother Father Level of Service:[address] [place] SYNCHRONOUS AUDIO-VIDEO VST EST HIGH MDM 40 MIN Reason for Visit and Comments: Palpitations [463712] Edema [2912046834] Shortness of Breath [800436] Chest Pain [116838] POTS [Other]NormalClinton Memorial HospitalCNOVon 59-46-6427UAXKDwgaoe Visit (NEHAAV) PAO LION ([id number]) 1970 F Date Time Provider Department 12/21/24 2:40 PM PALOMO DAVALOS NEHAJOLIE During your visit today, we recorded the following information about you: Pulse Blood pressure 89/minute 129/71 Palomo Davalos MD 12/21/2024 3:11 PM Signed Follow-Up Onabotulinum Toxin A (BotoxTM) for Migraine Indication: Chronic Intractable Migraine Referral Expiration: 12/21/2025 Prior to the initiation of the FIRST treatment with Onabotulinum Toxin A, the patient reported the following average headache frequency over the past 3 MONTHS: Number of moderate-severe migraine days/month: 12 Number of mild migraine days/month: 13 Number of headache free days/month: 5 (120 headache-free hours) After treatment with Onabotulinum Toxin A: Number of moderate-severe migraine days/month: 4 Number of mild migraine days/month: 5 Number of headache free days/month: 21 (504 headache-free hours) Patient reduction in overall migraine days: Yes Patient reduction in moderate-severe migraine days: Yes Patient reduction of headache hours by 100 hours or more: Yes (reduction of 384 hours) Individual has obtained clinical benefit deemed significant by individual or prescriber (Y/N): Yes Patient's quality of life and ability to perform ADLs has improved (Y/N): Yes Wearing off: No The patient has been assessed for disorders which could contribute to breathing or swallowing difficulty, and there is no contraindication with PREEMPT Botox. There is no documented allergic reaction/hypersensitivity to any botulinum toxin and there is no active infection at proposed injection site. HEADACHE SCORES: 02/19/2022 05/28/2022 Headache Questions ER visits since last office visit: 0 0 Hospital stays since last office visit 0 0 Limited ADLs in the last month: 8 Days headache pain free in the last month: 22 Days per month with ALL of the following symptoms - decreased productivity, light sensitivity and nausea: 8 Initial improvement of headache after botox injection at last visit: Very much improved Very much improved PRN medication usage in the last month: 8 Patient impression of improvement since last visit: Very much improved Very much improved 02/19/2022 05/28/2022 HIT-6 HIT-6 64 (Severe impact) Incomplete 02/19/2022 MARIA ESTHER - 2/7 SCORES MARIA ESTHER-2 Score 3 MARIA ESTHER-7 Score 5 04/02/2024 07/08/2024 10/08/2024 PHQ-9 Score 5 5 3 4 BP 129/71 (BP Site: Left Arm, BP Position: Sitting, BP Cuff Size: Regular Adult) Pulse 89 Patient name: Pao Lion : 1970 ALLERGIES Allergen Reactions - Biaxin [Clarithromy* GI Upset - Sutures Rash, Hives, Swelling, Itching Specifically, cat gut sutures - Cymbalta [Duloxetin* Swelling Severe abdominal pain - Demerol [Meperidine* Vomiting - Indomethacin Swelling Had 4+ edema in legs and arms the day after taking a new prescription. - Liquid Bandage (Cya* Rash Dermabond/exofin - Morphine Vomiting - Naproxen GI Upset - Penicillins Rash, Hives Patient can tolerate Augmentin - Vancomycin GI Upset - Versed [Midazolam H* Vomiting - Z Pack [Azithromyci* Rash, GI Upset UNIVERSAL PROTOCOL / SAFETY CHECKLIST Procedure: Onabotulinum toxin A for migraine Informed Consent Consent Obtained: Written [place] Protocol A moment to CARE was completed SIGN IN Personnel directly involved with the procedure wore the appropriate PPE Special Equipment: N/A Patient/Surrogate Stated/Verified: Patient name, Date of , Relevant allergies and Intended procedure TIME OUT Intended patient and procedure match the source document(s) Consent documented and matches the intended procedure No relevant labs, photos, and/or imaging studies were applicable for review. No correct side/site applicable for marking and visibility. No medications required for procedure. No fire risk assessment and interventions applicable. No implant(s) inserted. SIGN OUT No specimen collected. No instruments, equipment or retained foreign bodies applicable. Post-procedure follow-up management communicated and Plan of Care Visit completed when applicable Written Consent Obtained: Written Injection Sites Left (Units) Left (Sites) Right (Units) Right (Sites) TOTAL (Units) Used Car Make Ready Worker 5 1 5 1 10 Procerus Units: 5 Sites: 1 5 Frontalis 10 2 10 2 20 Temporalis 45 9 40 8 85 Occipitalis 15 3 15 3 30 Cervical PSP 10 2 10 2 20 Trapezius 15 3 15 3 30 Total Units used: 200 Total Units wasted: 0 Prior Therapies Duration of Use Dose Side effect Palomo Davalos MD Referring Provider: PALOMO DAVALOS [[id number]] Allergies As of Date: 12/21/2024 Noted Allergy Reaction BIAXIN (CLARITHROMYCIN) 07/26/2010 8 - GI Upset SUTURES 10/29/2013 2 - Rash 4 - Hives 7 - Swelling 9 - Itching Comments: Specifically, cat gut sutures CYMBALTA (DULOXETINE) (more content not included)...[facility] LABon [id number] [facility] Physician GroupComment on above:Order Comment: [facility] Test Name: C-TELOPEPTIDES #[id number] Comment: See report. Scanned copy available in EMR. PERFORMED BY: [address] [place] [address] PATHOLOGIST TUFTER HAND JOSH DIAS M.D.Performed By: #### [facility] ####[facility] Ipv[address] [place] [address] [facility] CENTERNo Panel InformationOrdered By: Ela Eugene on 51-09-1479Ecrejgpqobqcg TestSee [facility] Grant Medical CenterComment on above:See report. Scanned copy available in EMR.Jose G [id number] (NEUSHF) PAO LION ([id number]) 1970 F Date Time Provider Department 12/17/24 FRANCIS GARCIA During your visit today, we recorded the following information about you: Lesly Gold RN 12/17/2024 2:06 PM Signed -Pt calling in to office. Pt identified by name and date. -States went to see her [facility] provider (not [facility]) recently and was telling her about the numbness/blanching/discoloration/pain she has been experiencing in her BL feet/toes recently. -States symptoms are chronic, but do seem to be worsening. 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 States the provider recommended she see a NEUR provider who specializes in this. -[facility] made an appt with Dr. Garcia concerning this(12/26/2024/VV), but is wondering if this was already checked in her 01/03/2024 appt with this provider. -Would like Dr. Garcia to weigh in on the appropriateness of this appt. -States would like a call back with any input. States it is okay to leave a detailed VM on her home/mobile phone. Elliot Puga RN 12/17/2024 2:19 PM Signed Message forwarded to Dr Radha Puga [facility] Lesly Gold RN 12/22/2024 8:46 AM Signed -Noted Pt is still scheduled 12/26/[address] Garcia. Closing encounter. ÓscarherberthElsy 12/24/2024 4:00 PM Signed Does this appointment need to be 30 minutes or 60 minutes since its a new concern? Vivek Elsy 12/24/2024 4:[address] Garcia, appointment is ok to be left as is (virtual and on Saturday). Allergies As of Date: 12/17/2024 Noted Allergy Reaction BIAXIN (CLARITHROMYCIN) 07/26/2010 8 - GI Upset SUTURES 10/29/2013 2 - Rash 4 - Hives 7 - Swelling 9 - Itching Comments: Specifically, cat gut sutures CYMBALTA (DULOXETINE) 06/20/2011 7 - Swelling Comments: Severe abdominal pain DEMEROL (MEPERIDINE (PF)) 05/31/2010 11 - Vomiting INDOMETHACIN 12/13/2010 7 - Swelling Comments: Had 4+ edema in legs and arms the day after taking a new prescription. LIQUID BANDAGE (CYANOACRYLATE) (E*08/20/2024 2 - Rash Comments: Dermabond/exofin MORPHINE 05/31/2010 11 - Vomiting NAPROXEN 01/05/2011 8 - GI Upset PENICILLINS 10/23/2004 2 - Rash 4 - Hives Comments: Patient can tolerate Augmentin VANCOMYCIN 12/08/2015 8 - GI Upset VERSED (MIDAZOLAM HCL) 05/31/2010 11 - Vomiting Z PACK (AZITHROMYCIN) 04/06/2011 2 - Rash 8 - GI Upset Date Reviewed: 09/21/2024 Reviewed by: Cristina Shah LPN - Fully Assessed Reason for Visit: Appointment Questions [Other] Prescriptions as of 12/24/2024 - lisdexamfetamine (VYVANSE) 70 mg capsule Take 1 capsule by mouth once daily for 30 days. - lisdexamfetamine (VYVANSE) 70 mg capsule Take 1 capsule by mouth once daily for 30 days. Patient should start on December 26, 2024. - lisdexamfetamine (VYVANSE) 70 mg capsule Take 1 capsule by mouth once daily for 30 days. Patient should start on January 25, 2025. - XYWAV 0.5 gram/mL soln oral liquid Take 9 mL by mouth at bedtime and 4 hours after. - carBAMazepine (TEGRETOL) 200 mg tablet Take 2 tablets by mouth three times a day. - Milnacipran (SAVELLA) 12.5 mg tab Take 12.5 mg by mouth once daily. - keTORolac (TORADOL) 60 mg/2 mL soln INJECT 2ML INTRAMUSCULARLY ONE TIME ONLY FOR 1 DOSE - ondansetron (ZOFRAN) 8 mg tablet Take by mouth three times a day as needed. - levothyroxine (SYNTHROID) 50 mcg tablet TAKE 1 TABLET BY MOUTH SATURDAY THROUGH SATURDAY. SKIP SATURDAY. - dexAMETHasone sodium phosphate (DECADRON) 4 mg/mL injection INJECT 1ML (4MG) INTRAMUSCULARLY EVERY 6 HOURS NEEDED FOR ADRENAL STRESS, USE WHEN VOMITING OR DIARRHEA PREVENTS USE OF THE ORAL DOSE. - desmopressin acetate (DDAVP) 0.1 mg tablet Take 0.1 mg by mouth three times daily. - liothyronine (CYTOMEL) 5 mcg tablet Take 5 mcg by mouth twice daily. - ezetimibe (ZETIA) 10 mg tablet Take 10 mg by mouth every morning. - REPATHA SURECLICK 140 mg/mL pen injector INJECT 140 MG UNDER THE SKIN EVERY 2 WEEKS - hydrOXYzine HCl (ATARAX) 25 mg tablet Take 25 mg by mouth as needed. - omeprazole (PRILOSEC) 40 mg capsule Take 40 mg by mouth as needed. - SUMAtriptan (IMITREX) 100 mg tablet Take 100 mg by mouth. - esterified estrogens-methylTESTOSTERone (ESTRATEST) 1.25-2.5 mg per tablet Take 1 tablet by mouth once daily. - tiZANidine (ZANAFLEX) 4 mg tablet Take 4 mg by mouth as needed. 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] Hypothyroidism [E03.9] Hyperglycemia [R73.9] Osteopenia [M85.80] Dyslipidemia [E78.5] Fracture [T14.8XXA] Radiculopathy [M54.10] Chronic (more content not included)...NormalSelect Medical [facility] [place] Antinuclear Antibodieson 40-79-4024Hrfbzacirjj Abs, IFAPositiveCritically abnormal.The Un[facility] Health Physician GroupComment on above:Result Comment: Negative <1:80 Borderline 1:80 Positive >1:80Performed By: #### T4F, ESR, CK, CBC, TSH3, CRP, CMP ####[facility] [id number] [place] [id number] [facility]#### ALDOLASE, C4, CHROMATIN, OLEG, C3, CH50 ####[facility] ,Note 1CommentNormal.The Unc Health Physician GroupComment on above:Result Comment: Pattern Potential Disease Association Homogeneous Systemic Lupus Erythematosus, Drug Induced Systemic Lupus Erythematosus, Chronic Autoimmune hepatitis, Juvenile Idiopathic Arthritis Speckled Sjogren Syndrome, Systemic Lupus Erythematosus, Subacute Cutaneous Lupus, Lupus, Congenital Heart Block, Mixed Connective Tissue Disease, Scleroderma-diffuse, Scleroderma-Autoimmune Myositis Overlap Syndrome, Systemic Lupus Uojwklaabgexg-Ykjnoibtizt-Amegdpydzc Myositis Overlap Syndrome, Systemic Autoimmune Rheumatic Disease, Undifferentiated Connective Tissue Disease Nucleolar Systemic Sclerosis, Scleroderma-Autoimmune Myositis Overlap Syndrome, Sjogren Syndrome, Raynaud phenomenon, Pulmonary Arterial Hypertension, Systemic Autoimmune Rheumatic Disease, Cancer Centromere Scleroderma-CREST, Limited Cutaneous SSc, Raynaud's Phenomenon, Primary Biliary Cholangitis Nuclear Dot Primary Biliary Cholangitis Nuclear Primary Biliary Cholangitis, Autoimmune Membrane Hepatitis/Liver disease, Systemic Autoimmune Rheumatic Disease, Autoimmune Cytopenias, Linear Scleroderma, Antiphospholipid Syndrome Performed at: - [facility] [address] [id number] [place] Tender: Bryant Elias PhD, Phone: [phone] By: #### T4F, ESR, CK, CBC, TSH3, CRP, CMP ####[facility]#### ALDOLASE, C4, CHROMATIN, OLEG, C3, CH50 ####[facility] ,Speckled Hupwvmk3Moqz.The [facility] Comment on above:Result Comment: Dense Fine Speckled pattern is noted. This pattern suggests the presence of DFS70 antibody which has a low prevalence in systemic autoimmune rheumatic diseases. ICAP nomenclature: AC-2,4,5,29Performed By: #### T4F, ESR, CK, CBC, TSH3, CRP, CMP ####[facility]#### ALDOLASE, C4, CHROMATIN, OLEG, C3, CH50 ####[facility] ,Alanine aminotransferase [Enzymatic activity/volume] in Serum or PlasmaOrdered By: Jacky Beltran on 95-33-3687AFW [Catalytic activity/Vol]Alanine aminotransferase [Enzymatic activity/volume] in Serum or Plasma7-52Providence HospitalAlbumin [Mass/volume] in Serum or Plasma by Bromocresol green (BCG) dye binding methoOrdered By: Jacky Beltran on 68-17-5357Epamnec BCG dye [Mass/Vol] Albumin [Mass/volume] in Serum or Plasma by Bromocresol green (BCG) dye binding metho3.5-5.7FLakeHealth Beachwood Medical CenterAlkaline phosphatase [Enzymatic activity/volume] in Serum or PlasmaOrdered By: Jacky Beltran on 54-05-3606WZN [Catalytic activity/Vol]Alkaline phosphatase [Enzymatic activity/volume] in Serum or Uvbitd90-617CjigqhpslProvidence HospitalAspartate aminotransferase [Enzymatic activity/volume] in Serum or PlasmaOrdered By: Jacky Beltran on 25-43-3750IVD [Catalytic activity/Vol]Aspartate aminotransferase [Enzymatic activity/volume] in Serum or Qyjviy95-95MnwmkvhtcProvidence Hospital Basophils Auto (Bld) [#/Vol]Ordered By: Jacky Beltran on 61-70-6292Syjjrcwam (Bld) [#/Vol]Automated basophil count0.0-0.2FLakeHealth Beachwood Medical Center Basophils/100 WBC Auto (Bld)Ordered By: Jacky Beltran on 12-15-2024 Basophils/100 WBC (Bld)Automated basophil %.[facility] Bilirubin.total [Mass/volume] in Serum or PlasmaOrdered By: Jacky Beltran on 54-13-2145Wsesrpsgh [Mass/Vol]Bilirubin.total [Mass/volume] in Serum or Plasma 0.3-1.0Providence HospitalC reactive protein [Mass/volume] in Serum or PlasmaOrdered By: Jacky Beltran on 14-20-7530YMZ [Mass/Vol]C reactive protein [Mass/volume] in Serum or PlasmaHigh0.0-0.5FLakeHealth Beachwood Medical CenterC-Reactive Proteinon 75-56-9730X-Reactive Protein0.6 mg/dLHigh0.0-0.5The Un[facility] Health Physician GroupComment on above:Performed By: #### T4F, ESR, CK, CBC, TSH3, CRP, CMP ####[place] [address] [address]#### ALDOLASE, C4, CHROMATIN, OLEG, C3, CH50 ####[facility] , Calcium [Mass/volume] in Serum or PlasmaOrdered By: Jacky Beltran on 12-15-2024 Calcium [Mass/Vol]Calcium [Mass/volume] in Serum or Plasma8.6-10.3FLakeHealth Beachwood Medical CenterCarbon dioxide, total [Moles/volume] in Serum or Plasma Ordered By: Jacky Beltran on 23-09-1027KI5 [Moles/Vol]Carbon dioxide, total [Moles/volume] in Serum or Lghxwl33.0-31.0[facility] Chloride [Moles/volume] in Serum or PlasmaOrdered By: Jacky Beltran on 06-55-4565Hkgbgpvd [Moles/Vol]Chloride [Moles/volume] in Serum or Lforvr05-064 Providence HospitalChromatin Antibodyon 79-49-5362Athhizauz Antibody<0.8Vyqiks0.0-0.9The Trinity HealthComment on above:Result Comment: Performed at: [facility] [id number] [place] Tender: Bryant Elias PhD, Phone: [phone] PERFORMED BY: [facility] [address] [place] [address] PATHOLOGIST TUFTER HAND JOSH DIAS M.D.Performed By: #### T4F, ESR, CK, CBC, TSH3, CRP, CMP ####[place] [address] [address]#### ALDOLASE, C4, CHROMATIN, OLEG, C3, CH50 ####[facility] ,Complement C3on 71-25-0690Aqoswprtci C3116 mg/mXBsigpf36-361Ppw [facility] Comment on above:Result Comment: Performed at: [facility] - Lab[address] [id number] [place] Tender: Bryant Elias PhD, Phone: [phone] By: #### T4F, ESR, CK, CBC, TSH3, CRP, CMP ####[address]#### ALDOLASE, C4, CHROMATIN, OLEG, C3, CH50 ####[facility] ,Complement C4on 01-80-6839Bnqugpbywd C418 mg/dLNormal 12-38The Un[facility] Health Physician GroupComment on above:Performed By: #### T4F, ESR, CK, CBC, TSH3, CRP, CMP ####[address]#### ALDOLASE, C4, CHROMATIN, OLEG, C3, CH50 ####[facility] ,Complement Total (CH50)on 16-85-0874Orzlbrgisz Total (CH50)50Normal>41The Un[facility] Health Physician GroupComment on above:Result Comment: Age Male Female 1 - 30 days Not Estab. Not Estab. 31 days - 6 months >32 >20 7 months - 17 years >39 >39 >17 years >41 >41 NOTE: The adult ( >17 years ) reference interval range is used to flag abnormals on this report. If the patient is 17 years old or younger, use the table above to determine out of range values. Performed at: [facility] [id number] [place] Tender: Bryant Elias PhD, Phone: [phone] PERFORMED BY: [facility] [address] [place] [address] PATHOLOGIST TUFTER HAND JOSH DIAS M.D.Performed By: #### T4F, ESR, CK, CBC, TSH3, CRP, CMP ####[address]#### ALDOLASE, C4, CHROMATIN, OLEG, C3, CH50 ####[facility] ,Complete Blood Count Auto Diffon 04-94-0664Btnvykzdn (Bld) [#/Vol]0.1 10*3/uLNormal0.0-0.2The Un[facility] Health Physician GroupComment on above:Performed By: #### T4F, ESR, CK, CBC, TSH3, CRP, CMP ####[address]#### ALDOLASE, C4, CHROMATIN, OLEG, C3, CH50 ####[facility] , Basophils/100 WBC (Bld)1.1 %Normal.The [facility]ician GroupComment on above:Performed By: #### T4F, ESR, CK, CBC, TSH3, CRP, CMP ####[address]#### ALDOLASE, C4, CHROMATIN, OLEG, C3, CH50 ####[facility] ,Eosinophils (Bld) [#/Vol]0.2 10*3/uLNormal0.0-0.45The [facility] Health Physician GroupComment on above:Performed By: #### T4F, ESR, CK, CBC, TSH3, CRP, CMP ####[address]#### ALDOLASE, C4, CHROMATIN, OLEG, C3, CH50 ####[facility] ,Eosinophils/100 WBC (Bld)3.3 %Normal.The [facility] Health Physician GroupComment on above:Performed By: #### T4F, ESR, CK, CBC, TSH3, CRP, CMP ####[place] [address] [place]#### ALDOLASE, C4, CHROMATIN, OLEG, C3, CH50 ####[facility] , Erythrocyte distribution width (RBC) [Ratio]13.7 %Zxkwei30.9-15.3The [facility] Health Physician GroupComment on above:Performed By: #### T4F, ESR, CK, CBC, TSH3, CRP, CMP ####[address]#### ALDOLASE, C4, CHROMATIN, OLEG, C3, CH50 ####[facility] , Hematocrit (Bld) [Volume fraction]46.3 %Zdqxse72.0-46.4The [facility] Health Physician GroupComment on above:Performed By: #### T4F, ESR, CK, CBC, TSH3, CRP, CMP ####[address]#### ALDOLASE, C4, CHROMATIN, OLEG, C3, CH50 ####[facility] ,Hemoglobin (Bld) [Mass/Vol]15.5 g/uJVevc36.8-15.4The [facility] Health Physician GroupComment on above:Performed By: #### T4F, ESR, CK, CBC, TSH3, CRP, CMP ####[address]#### ALDOLASE, C4, CHROMATIN, OLEG, C3, CH50 ####[facility] ,Lymphocytes (Bld) [#/Vol]1.6 10*3/uLNormal1.00-4.8The [facility] Health Physician GroupComment on above:Performed By: #### T4F, ESR, CK, CBC, TSH3, CRP, CMP ####[address]#### ALDOLASE, C4, CHROMATIN, OLEG, C3, CH50 ####[facility] ,Lymphocytes/100 WBC (Bld)27.6 %Normal.The [facility] Health Physician GroupComment on above:Performed By: #### T4F, ESR, CK, CBC, TSH3, CRP, CMP ####[address]#### ALDOLASE, C4, CHROMATIN, OLEG, C3, CH50 ####[facility] ,MCH (RBC) [Entitic mass]30.8 prNvcksy55.7-34.3The [facility] Health Physician GroupComment on above:Performed By: #### T4F, ESR, CK, CBC, TSH3, CRP, CMP ####[address]#### ALDOLASE, C4, CHROMATIN, OLEG, C3, CH50 ####[facility] ,MCV (RBC) [Entitic vol]91.8 mCEcrxvl56-305Czd [facility] Health Physician GroupComment on above:Performed By: #### T4F, ESR, CK, CBC, TSH3, CRP, CMP ####[address]#### ALDOLASE, C4, CHROMATIN, OLEG, C3, CH50 ####[facility] ,Mean Corpuscular HGB Conc33.6 g/hNXwsgrm23.0-35.0The [facility] Health Physician GroupComment on above:Performed By: #### T4F, ESR, CK, CBC, TSH3, CRP, CMP ####[address]#### ALDOLASE, C4, CHROMATIN, OLEG, C3, CH50 ####[facility] , Monocytes (Bld) [#/Vol]0.4 10*3/uLNormal0.0-0.8The [facility] Comment on above:Performed By: #### T4F, ESR, CK, CBC, TSH3, CRP, CMP ####[address]#### ALDOLASE, C4, CHROMATIN, OLEG, C3, CH50 ####[facility] ,Monocytes/100 WBC (Bld)6.7 %Normal.The [facility] Health Physician GroupComment on above:Performed By: #### T4F, ESR, CK, CBC, TSH3, CRP, CMP ####[address]#### ALDOLASE, C4, CHROMATIN, OLEG, C3, CH50 ####[facility] ,Neutrophils (Bld) [#/Vol]3.6 10*3/uLNormal1.8-7.7The [facility] Health Physician GroupComment on above:Performed By: #### T4F, ESR, CK, CBC, TSH3, CRP, CMP ####[address]#### ALDOLASE, C4, CHROMATIN, OLEG, C3, CH50 ####[facility] , Neutrophils/100 WBC (Bld)61.3 %Normal.The [facility] Health Physician GroupComment on above:Performed By: #### T4F, ESR, CK, CBC, TSH3, CRP, CMP ####[address]#### ALDOLASE, C4, CHROMATIN, OLEG, C3, CH50 ####[facility] ,NRBC%0.0 /100{WBC}Normal0-0.5 The [facility] Health Physician GroupComment on above:Performed By: #### T4F, ESR, CK, CBC, TSH3, CRP, CMP ####[address]#### ALDOLASE, C4, CHROMATIN, OLEG, C3, CH50 ####[facility] ,Platelet mean volume (Bld) [Entitic vol]9.5 fLNormal6.3-10.7The [facility] Health Physician GroupComment on above:Performed By: #### T4F, ESR, CK, CBC, TSH3, CRP, CMP ####[address]#### ALDOLASE, C4, CHROMATIN, OLEG, C3, CH50 ####[facility] , Platelets (Bld) [#/Vol]307 10*3/qIJbghwa197-518Hid [facility] Comment on above:Performed By: #### T4F, ESR, CK, CBC, TSH3, CRP, CMP ####[place] [address]#### ALDOLASE, C4, CHROMATIN, OLEG, C3, CH50 ####[facility] ,RBC (Bld) [#/Vol]5.04 10*6/uLHigh3.60-5.00The [facility] Health Physician GroupComment on above: Performed By: #### T4F, ESR, CK, CBC, TSH3, CRP, CMP ####[address]#### ALDOLASE, C4, CHROMATIN, OLEG, C3, CH50 ####[facility] ,WBC (Bld) [#/Vol]5.8 10*3/uLNormal 3.8-11.6The [facility] Health Physician GroupComment on above:Performed By: #### T4F, ESR, CK, CBC, TSH3, CRP, CMP ####[address]#### ALDOLASE, C4, CHROMATIN, OLEG, C3, CH50 ####[facility] ,Comprehensive Metabolic Panelon 08-35-1030Chivbix [Mass/Vol]4.8 g/dLNormal3.5-5.7The [facility] Health Physician GroupComment on above: Performed By: #### T4F, ESR, CK, CBC, TSH3, CRP, CMP ####[address]#### ALDOLASE, C4, CHROMATIN, OLEG, C3, CH50 ####[facility] ,Albumin/Globulin [Mass ratio]1.5 {ratio} NormalThe Unc Health Physician GroupComment on above:Performed By: #### T4F, ESR, CK, CBC, TSH3, CRP, CMP ####[address]#### ALDOLASE, C4, CHROMATIN, OLEG, C3, CH50 ####[facility] ,ALP [Catalytic activity/Vol]38 U/BRddxxj81-225Ncb [facility] Health Physician GroupComment on above:Performed By: #### T4F, ESR, CK, CBC, TSH3, CRP, CMP ####[address]#### ALDOLASE, C4, CHROMATIN, OLEG, C3, CH50 ####[facility] , ALT [Catalytic activity/Vol]14 U/LNormal7-52The [facility] Health Physician GroupComment on above:Performed By: #### T4F, ESR, CK, CBC, TSH3, CRP, CMP ####[address]#### ALDOLASE, C4, CHROMATIN, OLEG, C3, CH50 ####[facility] ,Anion gap [Moles/Vol]10.5 mmol/LNormal6.0-15.0The [facility] Health Physician GroupComment on above:Performed By: #### T4F, ESR, CK, CBC, TSH3, CRP, CMP ####[address]#### ALDOLASE, C4, CHROMATIN, OLEG, C3, CH50 ####[facility] ,AST [Catalytic activity/Vol]21 U/XYhsrky42-65Pyo [facility] Health Physician GroupComment on above:Performed By: #### T4F, ESR, CK, CBC, TSH3, CRP, CMP ####[address]#### ALDOLASE, C4, CHROMATIN, OLEG, C3, CH50 ####[facility] , Bilirubin [Mass/Vol]0.8 mg/dLNormal0.3-1.0The [facility] Health Physician GroupComment on above:Performed By: #### T4F, ESR, CK, CBC, TSH3, CRP, CMP ####[address]#### ALDOLASE, C4, CHROMATIN, OLEG, C3, CH50 ####[facility] ,Calcium [Mass/Vol]10.0 mg/dL Normal8.6-10.3The [facility] Health Physician GroupComment on above:Performed By: #### T4F, ESR, CK, CBC, TSH3, CRP, CMP ####[address]#### ALDOLASE, C4, CHROMATIN, OLEG, C3, CH50 ####[facility] ,Chloride [Moles/Vol]100 mmol/AVfqcob42-512Zeb [facility] Health Physician GroupComment on above:Performed By: #### T4F, ESR, CK, CBC, TSH3, CRP, CMP ####[address]#### ALDOLASE, C4, CHROMATIN, OLEG, C3, CH50 ####[facility] , CO2 [Moles/Vol]29.3 mmol/LGkfayx62.0-31.0The [facility] Health Physician GroupComment on above:Performed By: #### T4F, ESR, CK, CBC, TSH3, CRP, CMP ####[address]#### ALDOLASE, C4, CHROMATIN, OLEG, C3, CH50 ####[facility] ,Creatinine [Mass/Vol]0.82 mg/dLNormal0.60-1.20The [facility] Health Physician GroupComment on above:Performed By: #### T4F, ESR, CK, CBC, TSH3, CRP, CMP ####[place] [address] [place]#### ALDOLASE, C4, CHROMATIN, OLEG, C3, CH50 ####[facility] ,GFR/1.73 sq M.predicted MDRD (S/P/Bld) [Vol rate/Area] mL/min/{1.73_m2}NormalThe Unc Health Physician GroupComment on above:Performed By: #### T4F, ESR, CK, CBC, TSH3, CRP, CMP ####[address] [place] [address] [place]#### ALDOLASE, C4, CHROMATIN, OLEG, C3, CH50 ####[facility] ,Globulin (S) [Mass/Vol]3.1 g/dLNormalThe [facility] Health Physician GroupComment on above:Performed By: #### T4F, ESR, CK, CBC, TSH3, CRP, CMP ####[address]#### ALDOLASE, C4, CHROMATIN, OLEG, C3, CH50 ####[facility] , Glucose [Mass/Vol]86 mg/gWLtixdp15-705Wqp [facility] Physician GroupComment on above:Result Comment: Random Glucose Reference Range is dependent on time and content of last meal. Glucose of more than 200 mg/dL in a nonstressed, ambulatory subject supports the diagnosis of Diabetes Mellitus. ADA recommended reference rangePerformed By: #### T4F, ESR, CK, CBC, TSH3, CRP, CMP ####[address]#### ALDOLASE, C4, CHROMATIN, OLEG, C3, CH50 ####[facility] , Potassium [Moles/Vol]3.8 mmol/LNormal3.5-5.1The [facility] Health Physician GroupComment on above:Performed By: #### T4F, ESR, CK, CBC, TSH3, CRP, CMP ####[address]#### ALDOLASE, C4, CHROMATIN, OLEG, C3, CH50 ####[facility] ,Protein [Mass/Vol]7.9 g/dL Normal6.4-8.9The [facility] Health Physician GroupComment on above:Performed By: #### T4F, ESR, CK, CBC, TSH3, CRP, CMP ####[address]#### ALDOLASE, C4, CHROMATIN, OLEG, C3, CH50 ####[facility] ,Sodium [Moles/Vol]136 mmol/PSwpowk930-430Ltg [facility]ician [facility] CenterComment on above:Performed By: #### T4F, ESR, CK, CBC, TSH3, CRP, CMP ####[place] [address]#### ALDOLASE, C4, CHROMATIN, OLEG, C3, CH50 ####[facility] ,Urea nitrogen [Mass/Vol]13 mg/dLNormal7-25The [facility] Health Physician GroupComment on above:Performed By: #### T4F, ESR, CK, CBC, TSH3, CRP, CMP ####[address]#### ALDOLASE, C4, CHROMATIN, OLEG, C3, CH50 ####[facility] ,Creatine Kinaseon 12-15-2024 CK [Catalytic activity/Vol]106 U/ZBnmpvs83-616Uzm [facility] Comment on above:Result Comment: PERFORMED BY: [facility] [address] [place] [address] PATHOLOGIST TUFTER HAND JOSH DIAS M.D.Performed By: #### T4F, ESR, CK, CBC, TSH3, CRP, CMP ####[address]#### ALDOLASE, C4, CHROMATIN, OLEG, C3, CH50 ####[facility] ,Creatine kinase [Enzymatic activity/volume] in Serum or PlasmaOrdered By: Jacky Beltran on 42-65-0596PN [Catalytic activity/Vol]Creatine kinase [Enzymatic activity/volume] in Serum or Sfgkfc41-171KntokycxlProvidence HospitalCreatinine [Mass/volume] in Serum or PlasmaOrdered By: Jacky Beltran on 12-15-2024 Creatinine [Mass/Vol]Creatinine [Mass/volume] in Serum or Plasma0.60-1.20 [facility] HospitalEosinophils Auto (Bld) [#/Vol]Ordered By: Jacky Beltran on 66-55-5586Ualiwnjwqdc (Bld) [#/Vol]Automated eosinophil count 0.0-0.45Prov[facility] HospitalEosinophils/100 WBC Auto (Bld)Ordered By: Jacky Beltran on 59-53-7359Tobinuyvjzz/100 WBC (Bld)Automated eosinophil %. [facility] HospitalErythrocyte Sedimentation Rateon 57-68-9508SXK (Bld) [Velocity]15 mm/hNormal0The [facility] Health Physician GroupComment on above: Result Comment: PERFORMED BY: [facility] [address] [place] [address] PATHOLOGIST TUFTER HAND JOSH DIAS M.D.Performed By: #### T4F, ESR, CK, CBC, TSH3, CRP, CMP ####[address]#### ALDOLASE, C4, CHROMATIN, OLEG, C3, CH50 ####[facility] ,Erythrocyte distribution width Auto (RBC) [Ratio]Ordered By: Jacky Beltran on 12-15-2024 Erythrocyte distribution width (RBC) [Ratio]Erythrocyte distribution width [Ratio] by Automated count11.9-15.3FLakeHealth Beachwood Medical CenterErythrocyte sedimentation rate by Photometric methodOrdered By: Jacky Beltran on 12-15-2024 ESR Photometric method (Bld) [Velocity]Erythrocyte sedimentation rate by Photometric methodProvidence HospitalFree T4 (Free Thyroxine) on 62-68-0528Hkbw T4 [Mass/Vol]0.70 ng/dLNormal0.61-1.12The [facility] Health Physician GroupComment on above:Performed By: #### T4F, ESR, CK, CBC, TSH3, CRP, CMP ####[place] [address] [place]#### ALDOLASE, C4, CHROMATIN, OLEG, C3, CH50 ####[facility] ,Globulin Calc (S) [Mass/Vol]Ordered By: Jacky Beltran on 08-00-5748Rpxghjvo (S) [Mass/Vol] Serum globulin measurement by calculation (mass/volume)Providence HospitalGlucose [Mass/volume] in Serum or PlasmaOrdered By: Jacky Beltran on 28-22-5814Omszitk [Mass/Vol]Glucose [Mass/volume] in Serum or Qiyitg88-671 [facility] HospitalComment on above:ADA recommended reference rangeRandom Glucose Reference Range is dependent on time and content of last meal. Glucose of more than 200 mg/dL in a nonstressed, ambulatory subject supports the diagnosisof Diabetes Mellitus.Hematocrit Auto (Bld) [Volume fraction]Ordered By: Jacky Beltran on 49-87-7413Upilfzgkns (Bld) [Volume fraction]Hematocrit [Volume Fraction] of Blood by Automated count34.0-46.4 [facility] HospitalHemoglobin [Mass/volume] in BloodOrdered By: Jacky Beltran on 68-18-3750Bapgccfcqx (Bld) [Mass/Vol]Hemoglobin [Mass/volume] in PyxzuJpdl77.8-15.4FLakeHealth Beachwood Medical CenterLeukocytes [#/volume] corrected for nucleated erythrocytes in Blood by Automated counOrdered By: Jacky Beltran on 30-34-3894CBA corrected for nucl RBC Auto (Bld) [#/Vol] Leukocytes [#/volume] corrected for nucleated erythrocytes in Blood by Automated coun3.8-11.6FLakeHealth Beachwood Medical CenterLymphocytes Auto (Bld) [#/Vol] Ordered By: Jacky Beltran on 54-36-3377Vlleiiaoemb (Bld) [#/Vol]Lymphocytes [#/volume] in Blood by Automated count1.00-4.8[facility] Lymphocytes/100 WBC Auto (Bld)Ordered By: Jacky Beltran on 12-15-2024 Lymphocytes/100 WBC (Bld)Lymphocytes/100 leukocytes in Blood by Automated count. Providence HospitalMCH Auto (RBC) [Entitic mass]Ordered By: Jacky Beltran on 21-77-3025YAE (RBC) [Entitic mass]MCH [Entitic mass] by Automated count24.7-34.3FLakeHealth Beachwood Medical CenterMCHC Auto (RBC) [Mass/Vol]Ordered By: Jacky Beltran on 37-89-0178CMJO (RBC) [Mass/Vol]MCHC [Mass/volume] by Automated count32.0-35.0Providence HospitalMCV Auto (RBC) [Entitic vol]Ordered By: Jacyk Beltran on 40-61-2262BHC (RBC) [Entitic vol]MCV [Entitic volume] by Automated aojkp96-369NjuqydndrProvidence HospitalMonocytes Auto (Bld) [#/Vol]Ordered By: Jacky Beltran on 67-65-1350Aooeiupfs (Bld) [#/Vol]Automated blood monocyte count0.0-0.8Providence HospitalMonocytes/100 WBC Auto (Bld)Ordered By: Jacky Beltran on 00-51-4154Vpwjstajy/100 WBC (Bld)Automated monocyte %.Providence HospitalNeutrophils Auto (Bld) [#/Vol]Ordered By: Jacky Beltran on 76-54-3371Wxdpcscoaek (Bld) [#/Vol]Neutrophils [#/volume] in Blood by Automated count1.8-7.7FLakeHealth Beachwood Medical CenterNeutrophils/100 WBC Auto (Bld) Ordered By: Jacky Beltran on 92-32-6987Ouzrckttxbm/100 WBC (Bld)Automated neutrophil %.Providence HospitalNo Panel InformationOrdered By: Jacky Beltran on 74-24-7112Hxhx-Nuclear Antibody Comment 2Comment.Providence HospitalComment on above:Pattern Potential Disease Association Homo geneous Systemic Lupus Erythematosus, Drug Induced Systemic Lupus Erythematosus, Chronic Autoimmunehepatitis, Juvenile Idiopathic Arthritis Speckled Sjogren Syndrome, Systemic Lupus Erythematosus, Subacute Cutaneous Lupus, Lupus, Congenital Heart Block, Mixed Connective Tissue Disease, Scleroderma-diffuse, Scleroderma- Autoimmune Myositis Overlap Syndrome, Systemic Lupus Kbikyhtvaqskc-Gqdvxxkjduc-Zuymbssehv Myositis Overlap Syndrome, Systemic Autoimmune Rheumatic Disease, Undifferentiated Connective Tissue Disease Nucleolar Systemic Sclerosis, Scleroderma-Autoimmune Myositis Overlap Syndrome, Sjogren Syndrome, Raynaud phenomenon, Pulmonary Arterial Hypertension, Systemic Autoimmune Rheumatic Disease, Cancer Centromere Scleroderma-CREST, Limited Cutaneous SSc, Raynaud's Phenomenon, Primary Biliary Cholangit is Nuclear Dot Primary Biliary Cholangitis Nuclear Primary Biliary Cholangitis, AutoimmuneMembrane Hepatitis/Liver disease, Systemic Autoimmune Rheumatic Disease, Autoimmune Cytopenias, Linear Scleroderma, Antiphospholipid Syndrome Performed at: [facility] [address] [id number] Director: Bryant Elias PhD, Phone: [phone] GFR (CKD-EPI)> 60.0 mL/MinProvidence HospitalPharmacy Creatinine Clearance (ChemN/Flower HospitalNucleated erythrocytes [Presence] in Blood by Automated count Ordered By: Jacky Beltran on 36-36-7444Nqovjdwzk RBC Auto Ql (Bld)Nucleated erythrocytes [Presence] in Blood by Automated count0-0.5FLakeHealth Beachwood Medical CenterPlatelet mean volume Auto (Bld) [Entitic vol]Ordered By: Jacky Beltran on 85-13-1306Mugipeib mean volume (Bld) [Entitic vol]Platelet mean volume [Entitic volume] in Blood by Automated count6.3-10.7FLakeHealth Beachwood Medical CenterPlatelets Auto (Bld) [#/Vol]Ordered By: Jacky Beltran on 12-15-2024 Platelets (Bld) [#/Vol]Platelets [#/volume] in Blood by Automated iweig930-524 Providence HospitalPotassium [Moles/volume] in Serum or Plasma Ordered By: Jacky eBltran on 81-21-5766Peehbioww [Moles/Vol]Potassium [Moles/volume] in Serum or Plasma3.5-5.1FLakeHealth Beachwood Medical CenterProtein [Mass/volume] in Serum or PlasmaOrdered By: Jacky Beltran on 87-91-5543Vwuyguq [Mass/Vol]Protein [Mass/volume] in Serum or Plasma6.4-8.9Providence HospitalRBC Auto (Bld) [#/Vol]Ordered By: Jacky Beltran on 50-48-2025QSE (Bld) [#/Vol]Erythrocytes [#/volume] in Blood by Automated countHigh3.60-5.00 [facility] Memorial Hospitalerum aldolase measurementOrdered By: Jacky Beltran on 08-05-5252Tvortgjm2.5 U/LNormal3.3-10.3FLakeHealth Beachwood Medical CenterComment on above:Performed at: [facility] [employer] [address] [id number] Director: Bryant Elias PhD, Phone: [phone] Comment: Performed at: [address] [id number] [place] Tender: Bryant Elias PhD, Phone: [phone] PERFORMED BY: [place] [address] [place] [address] PATHOLOGIST TUFTER HAND JOSH DIAS M.D.Performed By: #### T4F, ESR, CK, CBC, TSH3, CRP, CMP ####[facility] [address]#### ALDOLASE, C4, CHROMATIN, OLEG, C3, CH50 ####[facility] ,Serum homogeneous pattern antinuclear antibody (OLEG) titerOrdered By: Jacky Beltran on 51-82-4363Jpunjzchdc nuclear Ab pattern (S) [Titer]Serum homogeneous pattern antinuclear antibody (OLEG) titerTriHealth McCullough-Hyde Memorial Hospitalerum nuclear antibody titerOrdered By: Jacky Beltran on 14-25-0210Ovwmqim Ab (S) [Titer] Serum nuclear antibody titerAbnormal.Providence HospitalComment on above:Negative <1:80 Borderline 1:80 Positive >1:80Serum or plasma albumin/globulin mass ratioOrdered By: Jacky Beltran on 12-15-2024 Albumin/Globulin [Mass ratio]Serum or plasma albumin/globulin mass ratio [facility] Hospitalerum or plasma anion gap determinationOrdered By: Jacky Beltran on 50-66-6149Fqpzf gap [Moles/Vol]Serum or plasma anion gap determination6.0-15.0Tri[facility] Memorial Hospitalerum or plasma chromatin antibody assay (units/volume)Ordered By: Jacky Beltran on 54-39-4135Bupnhdkxl Ab QnSerum or plasma chromatin antibody assay (units/volume)0.0-0.9Providence HospitalComment on above:Performed at: [facility] [id number] Director: Bryant Elias PhD, Phone: [phone] or plasma complement C3 measurement (mass/volume)Ordered By: Jacky Beltran on 59-24-1627Mqrnydnxdd C3 [Mass/Vol]Serum or plasma complement C3 measurement (mass/volume)82-167Providence HospitalComment on above:Performed at: [facility] [id number] Director: Bryant Elias PhD, Phone: [phone] or plasma complement C4 measurement (mass/volume)Ordered By: Jacky Beltran on 50-36-7414Golwkobaye C4 [Mass/Vol]Serum or plasma complement C4 measurement (mass/volume)12-38[facility] Hospitalerum speckled pattern antinuclear antibody (OLEG) titer Ordered By: Jacky Beltran on 84-85-9078Frwqxdfy nuclear Ab pattern (S) [Titer] Serum speckled pattern antinuclear antibody (OLEG) titerHigh.Providence HospitalComment on above:Dense Fine Speckled pattern is noted. This pattern suggeststhe presence of DFS70 antibody which hasa low prevalencein systemic autoimmune rheumatic diseases.ICAP nomenclature: AC-2,4,5,29Sodium [Moles/volume] in Serum or PlasmaOrdered By: Jacky Beltran on 57-35-7774Meuzak [Moles/Vol]Sodium [Moles/volume] in Serum or Bscapw361-435TeiiemjuhProvidence HospitalThyroid Stimulating Hormoneon 10-55-0698RIE Qn1.18 m[IU]/LNormal 0.45-5.33The Unc Health Physician GroupComment on above:Result Comment: PERFORMED BY: [facility] [address] [place] [address] PATHOLOGIST TUFTER HAND JOSH DIAS M.D.Performed By: #### T4F, ESR, CK, CBC, TSH3, CRP, CMP ####[facility] [address]#### ALDOLASE, C4, CHROMATIN, OLEG, C3, CH50 ####[facility] ,Thyrotropin [Units/volume] in Serum or PlasmaOrdered By: Jacky Beltran on 66-43-1513ZXN Qn Thyrotropin [Units/volume] in Serum or Plasma0.45-5.33Providence HospitalThyroxine (T4) free [Mass/volume] in Serum or PlasmaOrdered By: Jacky Beltran on 54-17-4245Meuq T4 [Mass/Vol]Thyroxine (T4) free [Mass/volume] in Serum or Plasma0.61-1.12Providence HospitalTotal hemolytic complement CH50 assayOrdered By: Jacky Beltran on 87-96-2617Vmojc Complement (CH50)50 U/mL >41Providence HospitalComment on above:Age Male Female 1 - 30 days Not Estab. Not Estab. 31 days - 6 months >32 >20 7 months - 17 years >39 >39 >17 years >41 >41 NOTE: The adult ( >17 years ) reference intervalrange is used to flag abnormals on this report. If the patient is 17 years old or younger, use the table above to determine out of range values.Performed at: [facility] [id number] Director: Bryant Elias PhD, Phone: [phone] nitrogen [Mass/volume] in Serum or Plasma Ordered By: Jacky Beltran on 41-71-1298Pwpg nitrogen [Mass/Vol]Urea nitrogen [Mass/volume] in Serum or Plasma06-11Providence HospitalWBC Auto (Bld) [#/Vol]Ordered By: Jacky Beltran on 70-12-1369AZE (Bld) [#/Vol]Leukocytes [#/volume] in Blood by Automated count3.8-11.6FLakeHealth Beachwood Medical Center Alanine Aminotransferaseon 42-95-2354EPA [Catalytic activity/Vol]13 U/LNormal The Unc Health Physician GroupComment on above:Performed By: #### LIPID, T4F, K, TSH3, ALT, T3F ####[facility] L[address] [address] StreetAlanine aminotransferase [Enzymatic activity/volume] in Serum or PlasmaOrdered By: Ela Eugene on 79-97-1959FJZ [Catalytic activity/Vol]Alanine aminotransferase [Enzymatic activity/volume] in Serum or Plasma7Providence HospitalCholesterol [Mass/volume] in Serum or PlasmaOrdered By: Ela Eugene on 60-57-1323Eswhyesyxun [Mass/Vol]Cholesterol [Mass/volume] in Serum or Ehtmxf861-302OtjwunppxProvidence HospitalComment on above:Chol less than 200 mg/dl low riskChol 201-239 mg/dl borderline riskChol 240 mg/dl and greater high riskCholesterol in HDL [Mass/volume] in Serum or PlasmaOrdered By: Ela Eugene on 44-81-9243Hjyanrljsgn in HDL [Mass/Vol]Serum or plasma high density lipoprotein (HDL) cholesterol wxriahvzrul87-16LaiatlbgoProvidence HospitalComment on above:HDL CHOL ATP-III CLASSIFICATION Cardiovascular RiskHDL > or equal to 60 mg/dL LOWHDL < 40 mg/dL HIGHCholesterol in LDL Calc [Mass/Vol] Ordered By: Ela Eugene on 32-93-8583Ytdwbohttpx in LDL [Mass/Vol]Cholesterol in LDL [Mass/volume] in Serum or Plasma by calculationProvidence HospitalComment on above:LDL ATP III CLASSIFICATIONLDL less than 100 mg/dL OptimalLDL 100-129 mg/dL Near or above qdptzotMCG545-329 mg/dL Borderline highLDL 160-189 mg/dL HighLDL greater than 189 mg/dL Very highCholesterol in VLDL Calc [Mass/Vol]Ordered By: Ela Eugene on 11-06-3045Nmnbcsdtqlv in VLDL [Mass/Vol]Cholesterol in VLDL [Mass/volume] in Serum or Plasma by calculation Providence HospitalFree T4 (Free Thyroxine)on 87-32-2271Trqq T4 [Mass/Vol]0.73 ng/dLNormal0.61-1.12The [facility] Physician GroupComment on above:Performed By: #### LIPID, T4F, K, TSH3, ALT, T3F ####[facility] [place] [address] USALipid Panelon 12-03-2024 Cholesterol [Mass/Vol]169 mg/[id number] [facility] CenterComment on above:Result Comment: Chol less than 200 mg/dl low risk Chol 201-239 mg/dl borderline risk Chol 240 mg/dl and greater high riskPerformed By: #### LIPID, T4F, K, TSH3, ALT, T3F ####[facility] [place] [address] [facility] Cholesterol in HDL [Mass/Vol]77 mg/xZRenhrp51-38Vhy [facility] Comment on above:Result Comment: HDL CHOL ATP-III CLASSIFICATION Cardiovascular Risk HDL > or equal to 60 mg/dL LOW HDL < 40 mg/dL HIGHPerformed By: #### LIPID, T4F, K, TSH3, ALT, T3F ####[address] Cholesterol.total/Cholesterol in HDL [Mass ratio]2.2 {ratio}Normal<5.0The [facility] Physician GroupComment on above:Performed By: #### LIPID, T4F, K, TSH3, ALT, T3F ####[address] Cholesterol,Alunpjailw91 mg/dLNormal0-100The [facility] CenterComment on above:Result Comment: LDL ATP III CLASSIFICATION LDL less than 100 mg/dL Optimal LDL 100-129 mg/dL Near or above optimal LDL 130-159 mg/dL Borderline high LDL 160-189 mg/dL High LDL greater than 189 mg/dL Very highPerformed By: #### LIPID, T4F, K, TSH3, ALT, T3F ####[address] Triglyceride w/Fdgykw16 mg/dLNormal0-149[facility] Physician GroupComment on above:Result Comment: TRIG ATP III CLASSIFICATION TRIG less than 150 mg/dL Normal TRIG 150-199 mg/dL Borderline high TRIG 200-500 mg/dL High TRIG greater than 500 mg/dL Very high Standard traceable to the Center for Disease Conrtrol and Prevention (CDC) test method.Performed By: #### LIPID, T4F, K, TSH3, ALT, T3F ####[place] [id number] [facility]ENTERVLDL [id number] mg/dLNormalThe Unc Health Physician GroupComment on above:Performed By: #### LIPID, T4F, K, TSH3, ALT, T3F ####[place] [address] USAPotassiumon 48-28-5559Qzurxwefq [Moles/Vol]3.9 mmol/LNormal3.5-5.1The [facility] Health Physician GroupComment on above:Performed By: #### LIPID, T4F, K, TSH3, ALT, T3F ####[facility] [address] [place] [address] USAPotassium [Moles/volume] in Serum or PlasmaOrdered By: Ela Eugene on 85-38-0710Zdfkocszf [Moles/Vol]Potassium [Moles/volume] in Serum or Plasma3.5-5.1FSouthwest General Health Centererum or plasma total cholesterol/high density lipoprotein (HDL) cholesterol mass ratOrdered By: Ela Euegne on 24-66-2287Ndjrthuntzm.total/Cholesterol in HDL [Mass ratio] Serum or plasma total cholesterol/high density lipoprotein (HDL) cholesterol mass rat<5.0Providence HospitalThyroid Stimulating Hormoneon 30-98-2483VGH Qn0.47 m[IU]/LNormal0.45-5.33The [facility] Health Physician GroupComment on above:Result Comment: PERFORMED BY: [facility] [address] [place] [address] PATHOLOGIST TUFTER HAND JOSH DIAS M.D.Performed By: #### LIPID, T4F, K, TSH3, ALT, T3F ####[place] [id number] [place] [address] [facility] Thyrotropin [Units/volume] in Serum or PlasmaOrdered By: Ela Eugene on 04-28-5346IOQ QnThyrotropin [Units/volume] in Serum or Plasma0.45-5.33[facility] HospitalThyroxine (T4) free [Mass/volume] in Serum or Plasma Ordered By: Ela Eugene on 42-01-3825Fbqe T4 [Mass/Vol]Thyroxine (T4) free [Mass/volume] in Serum or Plasma0.61-1.12[facility] Triglyceride [Mass/volume] in Serum or PlasmaOrdered By: Ela Eugene on 96-65-8088Rpwxdjpgahwh [Mass/Vol]Triglyceride [Mass/volume] in Serum or Plasma 0-149Providence HospitalComment on above:TRIG ATP III CLASSIFICATIONTRIG less than 150 mg/dL NormalTRIG 150-199 mg/dL Borderline highTRIG 200-500 mg/dL High TRIG greater than 500 mg/dL Very highStandard traceable to the Center for Disease Conrtrol and Prevention (CDC) test method. Triiodothyronine (T3) Freeon 06-71-4215Hvekplrgeseqqmed (T3) Free2.93 pg/mL Normal2.50-3.90The [facility] Health Physician GroupComment on above:Result Comment: PERFORMED BY: [facility] [address] [place] [id number] PATHOLOGIST TUFTER HAND JOSH DIAS M.D.Performed By: #### LIPID, T4F, K, TSH3, ALT, T3F ####[facility] [address] [place] [address] [facility] Triiodothyronine (T3) Free [Mass/volume] in Serum or PlasmaOrdered By: Ela Euegne on 11-35-2566Ueen T3 [Mass/Vol]Triiodothyronine (T3) Free [Mass/volume] in Serum or Plasma2.50-3.90Providence HospitalCNPNon [id number] Telephone ([facility]) PAO LION ([id number]) 1970 F Date Time Provider Department 10/23/24 DREW CASTELLANOS [facility] During your visit today, we recorded the following information about you: Nnamdi Bolivar 10/23/2024 8:40 AM Signed SLEEP PHONE Name of caller: ESSDS Relationship to patient : Caregiver In-state or [id number] patient: In-State Was permission obtained from patient? Yes Patient identified by Name and Date of . ( Pao Lion, 1970). Yes Reason for Call : ESSDS called in regard to medication interaction for the patient. Requested a call back. Number to return call [phone] Okay to leave a message ? Yes Nnamdi Bolivar 10/28/2024 1:06 PM Signed [facility] called regarding this matter. Requested a call back. Frannie Lopez RN 10/29/2024 8:10 AM Signed Spoke to Harry at [facility] and gave okay to ship. Allergies As of Date: 10/23/2024 Noted Allergy Reaction BIAXIN (CLARITHROMYCIN) 07/26/2010 8 - GI Upset SUTURES 10/29/2013 2 - Rash 4 - Hives 7 - Swelling 9 - Itching Comments: Specifically, cat gut sutures CYMBALTA (DULOXETINE) 06/20/2011 7 - Swelling Comments: Severe abdominal pain DEMEROL (MEPERIDINE (PF)) 05/31/2010 11 - Vomiting INDOMETHACIN 12/13/2010 7 - Swelling Comments: Had 4+ edema in legs and arms the day after taking a new prescription. LIQUID BANDAGE (CYANOACRYLATE) (E*08/20/2024 2 - Rash Comments: Dermabond/exofin MORPHINE 05/31/2010 11 - Vomiting NAPROXEN 01/05/2011 8 - GI Upset PENICILLINS 10/23/2004 2 - Rash 4 - Hives Comments: Patient can tolerate Augmentin VANCOMYCIN 12/08/2015 8 - GI Upset VERSED (MIDAZOLAM HCL) 05/31/2010 11 - Vomiting Z PACK (AZITHROMYCIN) 04/06/2011 2 - Rash 8 - GI Upset Date Reviewed: 09/21/2024 Reviewed by: Cristina Shah LPN - Fully Assessed Prescriptions as of 10/29/2024 - lisdexamfetamine (VYVANSE) 60 mg capsule Take 1 capsule by mouth once daily for 30 days. - lisdexamfetamine (VYVANSE) 60 mg capsule Take 1 capsule by mouth once daily for 30 days. Patient should start on November 11, 2024. - lisdexamfetamine (VYVANSE) 60 mg capsule Take 1 capsule by mouth once daily for 30 days. Patient should start on December 11, 2024. - XYWAV 0.5 gram/mL soln oral liquid Take 9 mL by mouth at bedtime and 4 hours after. - carBAMazepine (TEGRETOL) 200 mg tablet Take 2 tablets by mouth three times a day. - Milnacipran (SAVELLA) 12.5 mg tab Take 12.5 mg by mouth once daily. - keTORolac (TORADOL) 60 mg/2 mL soln INJECT 2ML INTRAMUSCULARLY ONE TIME ONLY FOR 1 DOSE - ondansetron (ZOFRAN) 8 mg tablet Take by mouth three times a day as needed. - levothyroxine (SYNTHROID) 50 mcg tablet TAKE 1 TABLET BY MOUTH SATURDAY THROUGH SATURDAY. SKIP SATURDAY. - dexAMETHasone sodium phosphate (DECADRON) 4 mg/mL injection INJECT 1ML (4MG) INTRAMUSCULARLY EVERY 6 HOURS NEEDED FOR ADRENAL STRESS, USE WHEN VOMITING OR DIARRHEA PREVENTS USE OF THE ORAL DOSE. - desmopressin acetate (DDAVP) 0.1 mg tablet Take 0.1 mg by mouth three times daily. - liothyronine (CYTOMEL) 5 mcg tablet Take 5 mcg by mouth twice daily. - ezetimibe (ZETIA) 10 mg tablet Take 10 mg by mouth every morning. - REPATHA SURECLICK 140 mg/mL pen injector INJECT 140 MG UNDER THE SKIN EVERY 2 WEEKS - hydrOXYzine HCl (ATARAX) 25 mg tablet Take 25 mg by mouth as needed. - omeprazole (PRILOSEC) 40 mg capsule Take 40 mg by mouth as needed. - SUMAtriptan (IMITREX) 100 mg tablet Take 100 mg by mouth. - esterified estrogens-methylTESTOSTERone (ESTRATEST) 1.25-2.5 mg per tablet Take 1 tablet by mouth once daily. - tiZANidine (ZANAFLEX) 4 mg tablet Take 4 mg by mouth as needed. Problem List As Of Date 10/23/2024 Noted Resolved Hearing Impairment [[id number]] 09/27/2009 Migraines [G43.909] 05/31/2010 Chronic suppurative otitis media of both ears [*09/20/2011 Sleep apnea [G47.30] Trigeminal neuralgia [G50.0] Hearing difficulty [H91.90] Narcolepsy [G47.419] Hypothyroidism [E03.9] Hyperglycemia [R73.9] Osteopenia [M85.80] Dyslipidemia [E78.5] Fracture [T14.8XXA] Radiculopathy [M54.10] Chronic pain [G89.29] 09/24/2013 Adrenal insufficiency [E27.40] 10/29/2013 Rotator cuff (capsule) sprain [S43.429A] 08/12/2014 Intractable migraine without aura and without s*09/27/2015 Chronic daily headache [R51.9] 09/27/2015 Medication overuse headache [G44.40] 09/27/2015 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 Rectocele [N81.6] 12/06/2015 01/20/2016 Intractable chronic migraine without aura and w*12/14/2015 Conductive hearing loss, bilateral [H90.0] 06/09/2018 Tinnitus, bilateral [H93.13] 07/14/2018 Cholesteatoma, middle ear, 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] 08/05/2018 POTS (postural orthostatic tachycardia syndrome* Supraventricular tachycardia (HCC) [I47.10] 03/22/2023 Right inguinal hernia [K40.90] 07/03/2024 History of diverticulitis [Z8 (more content not included)...NormalHighland District HospitalCNPNon [id number] (NESLBO) PAO LION ([id number]) 1970 F Date Time Provider Department 10/05/24 DARIANA STOCKTON During your visit today, we recorded the following information about you: Dariana Stockton APRN.CNP 10/05/2024 2:17 PM Signed The following approved medication requests have been transmitted electronically. Requested Prescriptions Signed Prescriptions Disp Refills XYWAV 0.5 gram/mL soln oral liquid 540 mL 5 Sig: Take 9 mL by mouth at bedtime and 4 hours after. Authorizing Provider: DARIANA STOCKTON APRN.CNP PDMP website checked and validated. All prescriptions have been APPROPRIATELY filled. No suspicious activity was identified. 10/05/2024 by Dariana Stockton APRN.CNP Allergies As of Date: 10/05/2024 Noted Allergy Reaction BIAXIN (CLARITHROMYCIN) 07/26/2010 8 - GI Upset SUTURES 10/29/2013 2 - Rash 4 - Hives 7 - Swelling 9 - Itching Comments: Specifically, cat gut sutures CYMBALTA (DULOXETINE) 06/20/2011 7 - Swelling Comments: Severe abdominal pain DEMEROL (MEPERIDINE (PF)) 05/31/2010 11 - Vomiting INDOMETHACIN 12/13/2010 7 - Swelling Comments: Had 4+ edema in legs and arms the day after taking a new prescription. 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 - carBAMazepine (TEGRETOL) 200 mg tablet Take 2 tablets by mouth three times a day. - polyethylene glycol 3350 (MIRALAX) 17 gram/dose powder Take 17 g by mouth once daily. Dissolve dose in 4 - 8 ounces of liquid and take as directed. - lisdexamfetamine (VYVANSE) 50 mg capsule Take 1 capsule by mouth once daily for 30 days. - lisdexamfetamine (VYVANSE) 50 mg capsule Take 1 capsule by mouth once daily for 30 days. Patient should start on August 08, 2024. - lisdexamfetamine (VYVANSE) 50 mg capsule Take 1 capsule by mouth once daily for 30 days. Patient should start on September 07, 2024. - Milnacipran (SAVELLA) 12.5 mg tab Take 12.5 mg by mouth once daily. - keTORolac (TORADOL) 60 mg/2 mL soln INJECT 2ML INTRAMUSCULARLY ONE TIME ONLY FOR 1 DOSE - ondansetron (ZOFRAN) 8 mg tablet Take by mouth three times a day as needed. - levothyroxine (SYNTHROID) 50 mcg tablet TAKE 1 TABLET BY MOUTH SATURDAY THROUGH SATURDAY. SKIP SATURDAY. - dexAMETHasone sodium phosphate (DECADRON) 4 mg/mL injection INJECT 1ML (4MG) INTRAMUSCULARLY EVERY 6 HOURS NEEDED FOR ADRENAL STRESS, USE WHEN VOMITING OR DIARRHEA PREVENTS USE OF THE ORAL DOSE. - desmopressin acetate (DDAVP) 0.1 mg tablet Take 0.1 mg by mouth three times daily. - liothyronine (CYTOMEL) 5 mcg tablet Take 5 mcg by mouth twice daily. - ezetimibe (ZETIA) 10 mg tablet Take 10 mg by mouth every morning. - REPATHA SURECLICK 140 mg/mL pen injector INJECT 140 MG UNDER THE SKIN EVERY 2 WEEKS - hydrOXYzine HCl (ATARAX) 25 mg tablet Take 25 mg by mouth as needed. - omeprazole (PRILOSEC) 40 mg capsule Take 40 mg by mouth as needed. - SUMAtriptan (IMITREX) 100 mg tablet Take 100 mg by mouth. - esterified estrogens-methylTESTOSTERone (ESTRATEST) 1.25-2.5 mg per tablet Take 1 tablet by mouth once daily. - tiZANidine (ZANAFLEX) 4 mg tablet Take 4 mg by mouth as needed. Problem List As Of Date 10/05/2024 Noted Resolved Hearing Impairment [[id number]] 09/27/2009 Migraines [G43.909] 05/31/2010 Chronic suppurative otitis media of both ears [*09/20/2011 Sleep apnea [G47.30] Trigeminal neuralgia [G50.0] Hearing difficulty [H91.90] Narcolepsy [G47.419] Hypothyroidism [E03.9] Hyperglycemia [R73.9] Osteopenia [M85.80] Dyslipidemia [E78.5] Fracture [T14.8XXA] Radiculopathy [M54.10] Chronic pain [G89.29] 09/24/2013 Adrenal insufficiency [E27.40] 10/29/2013 Rotator cuff (capsule) sprain [S43.429A] 08/12/2014 Intractable migraine without aura and without s*09/27/2015 Chronic daily headache [R51.9] 09/27/2015 Medication overuse headache [G44.40] 09/27/2015 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 Rectocele [N81.6] 12/06/2015 01/20/2016 Intractable chronic migraine without aura and w*12/14/2015 Conductive hearing loss, bilateral [H90.0] 06/09/2018 Tinnitus, bilateral [H93.13] 07/14/2018 Cholesteatoma, m (more content not included)...NormalKettering Health [facility] [id number] (NHMNS2) PAO LION ([id number]) 1970 F Date Time Provider Department 09/22/24 PALOMO DAVALOS NHMNS2 During your visit today, we recorded the following information about you: Ailyn Ivy RN 09/22/2024 9:16 AM Signed Botox referral sent to pharmacy. Ailyn Ivy RN Allergies As of Date: 09/22/2024 Noted Allergy Reaction BIAXIN (CLARITHROMYCIN) 07/26/2010 8 - GI Upset SUTURES 10/29/2013 2 - Rash 4 - Hives 7 - Swelling 9 - Itching Comments: Specifically, cat gut sutures CYMBALTA (DULOXETINE) 06/20/2011 7 - Swelling Comments: Severe abdominal pain DEMEROL (MEPERIDINE (PF)) 05/31/2010 11 - Vomiting INDOMETHACIN 12/13/2010 7 - Swelling Comments: Had 4+ edema in legs and arms the day after taking a new prescription. LIQUID BANDAGE (CYANOACRYLATE) (E*08/20/2024 2 - Rash Comments: Dermabond/exofin MORPHINE 05/31/2010 11 - Vomiting NAPROXEN 01/05/2011 8 - GI Upset PENICILLINS 10/23/2004 2 - Rash 4 - Hives Comments: Patient can tolerate Augmentin VANCOMYCIN 12/08/2015 8 - GI Upset VERSED (MIDAZOLAM HCL) 05/31/2010 11 - Vomiting Z PACK (AZITHROMYCIN) 04/06/2011 2 - Rash 8 - GI Upset Date Reviewed: 09/21/2024 Reviewed by: Cristina Shah LPN - Fully Assessed Reason for Visit: Referral Request [124] Prescriptions as of 09/22/2024 - carBAMazepine (TEGRETOL) 200 mg tablet Take 2 tablets by mouth three times a day. - polyethylene glycol 3350 (MIRALAX) 17 gram/dose powder Take 17 g by mouth once daily. Dissolve dose in 4 - 8 ounces of liquid and take as directed. - amoxicillin-clavulanate potassium (AUGMENTIN) 875-125 mg per tablet Take 1 tablet by mouth two times a day. - lisdexamfetamine (VYVANSE) 50 mg capsule Take 1 capsule by mouth once daily for 30 days. - lisdexamfetamine (VYVANSE) 50 mg capsule Take 1 capsule by mouth once daily for 30 days. Patient should start on August 08, 2024. - lisdexamfetamine (VYVANSE) 50 mg capsule Take 1 capsule by mouth once daily for 30 days. Patient should start on September 07, 2024. - Milnacipran (SAVELLA) 12.5 mg tab Take 12.5 mg by mouth once daily. - XYWAV 0.5 gram/mL soln oral liquid Take 9 mL by mouth at bedtime and 4 hours after. - keTORolac (TORADOL) 60 mg/2 mL soln INJECT 2ML INTRAMUSCULARLY ONE TIME ONLY FOR 1 DOSE - ondansetron (ZOFRAN) 8 mg tablet Take by mouth three times a day as needed. - levothyroxine (SYNTHROID) 50 mcg tablet TAKE 1 TABLET BY MOUTH SATURDAY THROUGH SATURDAY. SKIP SATURDAY. - dexAMETHasone sodium phosphate (DECADRON) 4 mg/mL injection INJECT 1ML (4MG) INTRAMUSCULARLY EVERY 6 HOURS NEEDED FOR ADRENAL STRESS, USE WHEN VOMITING OR DIARRHEA PREVENTS USE OF THE ORAL DOSE. - desmopressin acetate (DDAVP) 0.1 mg tablet Take 0.1 mg by mouth three times daily. - liothyronine (CYTOMEL) 5 mcg tablet Take 5 mcg by mouth twice daily. - ezetimibe (ZETIA) 10 mg tablet Take 10 mg by mouth every morning. - REPATHA SURECLICK 140 mg/mL pen injector INJECT 140 MG UNDER THE SKIN EVERY 2 WEEKS - hydrOXYzine HCl (ATARAX) 25 mg tablet Take 25 mg by mouth as needed. - omeprazole (PRILOSEC) 40 mg capsule Take 40 mg by mouth as needed. - SUMAtriptan (IMITREX) 100 mg tablet Take 100 mg by mouth. - esterified estrogens-methylTESTOSTERone (ESTRATEST) 1.25-2.5 mg per tablet Take 1 tablet by mouth once daily. - tiZANidine (ZANAFLEX) 4 mg tablet Take 4 mg by mouth as needed. Problem List As Of Date 09/22/2024 Noted Resolved Hearing Impairment [[id number]] 09/27/2009 Migraines [G43.909] 05/31/2010 Chronic suppurative otitis media of both ears [*09/20/2011 Sleep apnea [G47.30] Trigeminal neuralgia [G50.0] Hearing difficulty [H91.90] Narcolepsy [G47.419] Hypothyroidism [E03.9] Hyperglycemia [R73.9] Osteopenia [M85.80] Dyslipidemia [E78.5] Fracture [T14.8XXA] Radiculopathy [M54.10] Chronic pain [G89.29] 09/24/2013 Adrenal insufficiency [E27.40] 10/29/2013 Rotator cuff (capsule) sprain [S43.429A] 08/12/2014 Intractable migraine without aura and without s*09/27/2015 Chronic daily headache [R51.9] 09/27/2015 Medication overuse headache [G44.40] 09/27/2015 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 Rectocele [N81.6] 12/06/2015 01/20/2016 Intractable chronic migraine without aura and w*12/14/2015 Conductive hearing loss, bilateral [H90.0] 06/09/2018 Tinnitus, bilateral [H93.13] 07/14/2018 Cholesteatoma, middle ear, 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] 08/05/2018 POTS (postural orthostatic tachycardia syndrome* Supraventricular tachycardia (HCC) [I47.10] 03/22/2023 Right inguinal hernia [K40.90] 07/03/2024 History of diverticulitis [Z87.19] 07/16/2024 Encounter Status:Closed by AILYN IVY on 09/22/24[facility] [id number] Visit (NEHAAV) PAO LION ([id number]) 1970 F Date Time Provider Department 09/21/24 10:30 AM PALOMO DAVALOS NEJONNY During your visit today, we recorded the following information about you: Pulse Blood pressure 75/minute 119/80 Palomo Davalos MD 09/21/2024 10:54 AM Signed Follow-Up Onabotulinum Toxin A (BotoxTM) for Migraine Indication: Chronic Intractable Migraine Referral Expiration: 11/30/2024 Prior to the initiation of the FIRST treatment with Onabotulinum Toxin A, the patient reported the following average headache frequency over the past 3 MONTHS: Number of moderate-severe migraine days/month: 12 Number of mild migraine days/month: 13 Number of headache free days/month: 5 (120 headache-free hours) After treatment with Onabotulinum Toxin A: Number of moderate-severe migraine days/month: 4 Number of mild migraine days/month: 5 Number of headache free days/month: 21 (504 headache-free hours) Patient reduction in overall migraine days: Yes Patient reduction in moderate-severe migraine days: Yes Patient reduction of headache hours by 100 hours or more: Yes (reduction of 384 hours) Individual has obtained clinical benefit deemed significant by individual or prescriber (Y/N): Yes Patient's quality of life and ability to perform ADLs has improved (Y/N): Yes Wearing off: No The patient has been assessed for disorders which could contribute to breathing or swallowing difficulty, and there is no contraindication with PREEMPT Botox. There is no documented allergic reaction/hypersensitivity to any botulinum toxin and there is no active infection at proposed injection site. HEADACHE SCORES: 02/19/2022 05/28/2022 Headache Questions ER visits since last office visit: 0 0 Hospital stays since last office visit 0 0 Limited ADLs in the last month: 8 Days headache pain free in the last month: 22 Days per month with ALL of the following symptoms - decreased productivity, light sensitivity and nausea: 8 Initial improvement of headache after botox injection at last visit: Very much improved Very much improved PRN medication usage in the last month: 8 Patient impression of improvement since last visit: Very much improved Very much improved 02/19/2022 05/28/2022 HIT-6 HIT-6 64 (Severe impact) Incomplete 02/19/2022 MARIA ESTHER - 2/7 SCORES MARIA ESTHER-2 Score 3 MARIA ESTHER-7 Score 5 10/01/2023 04/02/2024 07/08/2024 PHQ-9 Score 6 5 5 3 BP 119/80 (BP Site: Left Arm, BP Position: Sitting, BP Cuff Size: Regular Adult) Pulse 75 Patient name: Pao Lion : 1970 ALLERGIES Allergen Reactions - Biaxin [Clarithromy* GI Upset - Sutures Rash, Hives, Swelling, Itching Specifically, cat gut sutures - Cymbalta [Duloxetin* Swelling Severe abdominal pain - Demerol [Meperidine* Vomiting - Indomethacin Swelling Had 4+ edema in legs and arms the day after taking a new prescription. - Liquid Bandage (Cya* Rash Dermabond/exofin - Morphine Vomiting - Naproxen GI Upset - Penicillins Rash, Hives Patient can tolerate Augmentin - Vancomycin GI Upset - Versed [Midazolam H* Vomiting - Z Pack [Azithromyci* Rash, GI Upset UNIVERSAL PROTOCOL / SAFETY CHECKLIST Procedure: Onabotulinum toxin A for migraine Informed Consent Consent Obtained: Written [place] Protocol A moment to CARE was completed SIGN IN Personnel directly involved with the procedure wore the appropriate PPE Special Equipment: N/A Patient/Surrogate Stated/Verified: Patient name, Date of , Relevant allergies and Intended procedure TIME OUT Intended patient and procedure match the source document(s) Consent documented and matches the intended procedure No relevant labs, photos, and/or imaging studies were applicable for review. No correct side/site applicable for marking and visibility. No medications required for procedure. No fire risk assessment and interventions applicable. No implant(s) inserted. SIGN OUT No specimen collected. No instruments, equipment or retained foreign bodies applicable. Post-procedure follow-up management communicated and Plan of Care Visit completed when applicable Written Consent Obtained: Written Injection Sites Left (Units) Left (Sites) Right (Units) Right (Sites) TOTAL (Units) Used Car Make Ready Worker 5 1 5 1 10 Procerus Units: 5 Sites: 1 5 Frontalis 10 2 10 2 20 Temporalis 45 9 40 8 85 Occipitalis 15 3 15 3 30 Cervical PSP 10 2 10 2 20 Trapezius 15 3 15 3 30 Total Units used: 200 Total Units wasted: 0 Prior Therapies Duration of Use Dose Side effect Palomo Davalos MD Referring Provider: PALOMO DAVALOS [[id number]] Allergies As of Date: 09/21/2024 Noted Allergy Reaction BIAXIN (CLARITHROMYCIN) 07/26/2010 8 - GI Upset SUTURES 10/29/2013 2 - Rash 4 - Hives 7 - Swelling 9 - Itching Comments: Specifically, cat gut sutures CYMBALTA (DULOXETINE) (more content not included)...[facility] [id number] Visit (BAMBI) PAO LION ([id number]) 1970 F Date Time Provider Department 08/20/24 2:30 PM CRISTINA GREEN During your visit today, we recorded the following information about you: Pulse Blood pressure Weight Height 87/minute 111/84 59 kg 1.525 m Cristina Green DO 08/29/2024 1:13 PM Signed Post Op Note August 20, 2024 3:06 PM CC: s/p open RIH repair Complaints: feeling better, has a lump, consistent with hematoma BP 111/84 Pulse 87 Ht 5' .05 (1.53m) Wt 130 lb (59.0kg) BMI 25.36 kg/(m2). AANDO NAD Incision: healed, residual dermatitis Assessment 1. S/P right inguinal hernia repair Stable, improving, no apparent recurrence. 2. Allergic reaction, initial encounter From skin glue Advised hydrocortisone cream Cristina Green DO General Surgery Staff [facility] [phone] Fernando Hunt DO 08/29/2024 1:13 PM Signed Post Op Note August 20, 2024 3:12 PM CC: Hematoma s/p right inguinal hernia repair on 07/30 Complaints: Patient denies pain or discomfort associated with hematoma. States it has decreased in size, but was initially concerned that the hernia had returned. BP 111/84 Pulse 87 Ht 5' .05 (1.53m) Wt 130 lb (59.0kg) BMI 25.36 kg/(m2). AANDO NAD Incision with contact dermatitis 2/2 to derma chin noted Pathology: Benign nerve with reactive changes. Assessment 1. S/P right inguinal hernia repair Patient did have hematoma following surgery that was first reported on 08/06. Recommended ice packs and heating pads. She has been using them intermittently but denies pain. Patient can follow up as needed. 2. Allergic reaction, initial encounter Contact dermatitis noted to right inguinal incision but remains intact. Allergies updated in chart. Fernando Hunt DO General Surgery Staff [facility] Allergies As of Date: 08/20/2024 Noted Allergy Reaction BIAXIN (CLARITHROMYCIN) 07/26/2010 8 - GI Upset SUTURES 10/29/2013 2 - Rash 4 - Hives 7 - Swelling 9 - Itching Comments: Specifically, cat gut sutures CYMBALTA (DULOXETINE) 06/20/2011 7 - Swelling Comments: Severe abdominal pain DEMEROL (MEPERIDINE (PF)) 05/31/2010 11 - Vomiting INDOMETHACIN 12/13/2010 7 - Swelling Comments: Had 4+ edema in legs and arms the day after taking a new prescription. LIQUID BANDAGE (CYANOACRYLATE) (E*08/20/2024 2 - Rash Comments: Dermabond/exofin MORPHINE 05/31/2010 11 - Vomiting NAPROXEN 01/05/2011 8 - GI Upset PENICILLINS 10/23/2004 2 - Rash 4 - Hives Comments: Patient can tolerate Augmentin VANCOMYCIN 12/08/2015 8 - GI Upset VERSED (MIDAZOLAM HCL) 05/31/2010 11 - Vomiting Z PACK (AZITHROMYCIN) 04/06/2011 2 - Rash 8 - GI Upset Date Reviewed: 08/20/2024 Reviewed by: Cristina Green DO - Fully Assessed Reason for Visit: Post Op [174] Cmt: Right inguinal hernia DOS 07/30/24 Little tender to touch Primary Visit Diagnosis:S/P right inguinal hernia repair [Z98.890, Z87.19] Other Visit Diagnosis:Allergic reaction, initial encounter [T78.40XA] Prescriptions as of 08/29/2024 - acetaminophen (TYLENOL EXTRA STRENGTH) 500 mg tablet Take 2 tablets by mouth every 6 hours as needed for pain. - polyethylene glycol 3350 (MIRALAX) 17 gram/dose powder Take 17 g by mouth once daily. Dissolve dose in 4 - 8 ounces of liquid and take as directed. - amoxicillin-clavulanate potassium (AUGMENTIN) 875-125 mg per tablet Take 1 tablet by mouth two times a day. - lisdexamfetamine (VYVANSE) 50 mg capsule Take 1 capsule by mouth once daily for 30 days. - lisdexamfetamine (VYVANSE) 50 mg capsule Take 1 capsule by mouth once daily for 30 days. Patient should start on August 08, 2024. - lisdexamfetamine (VYVANSE) 50 mg capsule Take 1 capsule by mouth once daily for 30 days. Patient should start on September 07, 2024. - Milnacipran (SAVELLA) 12.5 mg tab Take 12.5 mg by mouth once daily. - XYWAV 0.5 gram/mL soln oral liquid Take 9 mL by mouth at bedtime and 4 hours after. - keTORolac (TORADOL) 60 mg/2 mL soln INJECT 2ML INTRAMUSCULARLY ONE TIME ONLY FOR 1 DOSE - ondansetron (ZOFRAN) 8 mg tablet Take by mouth three times a day as needed. - levothyroxine (SYNTHROID) 50 mcg tablet TAKE 1 TABLET BY MOUTH SATURDAY THROUGH SATURDAY. SKIP SATURDAY. - dexAMETHasone sodium phosphate (DECADRON) 4 mg/mL injection INJECT 1ML (4MG) INTRAMUSCULARLY EVERY 6 HOURS NEEDED FOR ADRENAL STRESS, USE WHEN VOMITING OR DIARRHEA PREVENTS USE OF THE ORAL DOSE. - desmopressin acetate (DDAVP) 0.1 mg tablet Take 0.1 mg by mouth three times daily. - liothyronine (CYTOMEL) 5 mcg tablet Take 5 mcg by mouth twice daily. - carBAMazepine (TEGRETOL) 200 mg tablet Take 2 tablets by mouth three times daily. - ezetimibe (ZETIA) 10 mg tablet Take 10 mg by mouth every morning. - REPATHA SURECLICK 140 mg/mL pen inject (more content not included)...[id number] (BAMBI) PAO LION ([id number]) 1970 F Date Time Provider Department 08/06/24 CRISTINA GREEN During your visit today, we recorded the following information about you: Sandra Wiggins 08/06/2024 10:12 AM Signed Patient states area of incision went from soft to hard and there is no pain. No discharge and no odor. Is this normal? Patient can be reached at [phone] Marleni Bedolla RN 08/06/2024 10:42 AM Signed Spoke with pt: pt reports she is still swollen from surgery - not worse but no improvement denies pain pt reports entire incision is hard and protruding out? pt is concern for hematoma - using heat denies any drainage and fever discussed sending pictures in mychart prior to appointment for provider to review Offered and accepted VV with Norma for today Allergies As of Date: 08/06/2024 Noted Allergy Reaction BIAXIN (CLARITHROMYCIN) 07/26/2010 8 - GI Upset SUTURES 10/29/2013 2 - Rash 4 - Hives 7 - Swelling 9 - Itching Comments: Specifically, cat gut sutures CYMBALTA (DULOXETINE) 06/20/2011 7 - Swelling Comments: Severe abdominal pain DEMEROL (MEPERIDINE (PF)) 05/31/2010 11 - Vomiting INDOMETHACIN 12/13/2010 7 - Swelling Comments: Had 4+ edema in legs and arms the day after taking a new prescription. MORPHINE 05/31/2010 11 - Vomiting NAPROXEN 01/05/2011 8 - GI Upset PENICILLINS 10/23/2004 2 - Rash 4 - Hives Comments: Patient can tolerate Augmentin VANCOMYCIN 12/08/2015 8 - GI Upset VERSED (MIDAZOLAM HCL) 05/31/2010 11 - Vomiting Z PACK (AZITHROMYCIN) 04/06/2011 2 - Rash 8 - GI Upset Date Reviewed: 07/30/2024 Reviewed by: Alexus Reynolds RN - Fully Assessed Reason for Visit: Patient Question [1477] Prescriptions as of 08/06/2024 - acetaminophen (TYLENOL EXTRA STRENGTH) 500 mg tablet Take 2 tablets by mouth every 6 hours as needed for pain. - polyethylene glycol 3350 (MIRALAX) 17 gram/dose powder Take 17 g by mouth once daily. Dissolve dose in 4 - 8 ounces of liquid and take as directed. - amoxicillin-clavulanate potassium (AUGMENTIN) 875-125 mg per tablet Take 1 tablet by mouth two times a day. - lisdexamfetamine (VYVANSE) 50 mg capsule Take 1 capsule by mouth once daily for 30 days. - lisdexamfetamine (VYVANSE) 50 mg capsule Take 1 capsule by mouth once daily for 30 days. Patient should start on August 08, 2024. - lisdexamfetamine (VYVANSE) 50 mg capsule Take 1 capsule by mouth once daily for 30 days. Patient should start on September 07, 2024. - Milnacipran (SAVELLA) 12.5 mg tab Take 12.5 mg by mouth once daily. - XYWAV 0.5 gram/mL soln oral liquid Take 9 mL by mouth at bedtime and 4 hours after. - keTORolac (TORADOL) 60 mg/2 mL soln INJECT 2ML INTRAMUSCULARLY ONE TIME ONLY FOR 1 DOSE - ondansetron (ZOFRAN) 8 mg tablet Take by mouth three times a day as needed. - levothyroxine (SYNTHROID) 50 mcg tablet TAKE 1 TABLET BY MOUTH SATURDAY THROUGH SATURDAY. SKIP SATURDAY. - dexAMETHasone sodium phosphate (DECADRON) 4 mg/mL injection INJECT 1ML (4MG) INTRAMUSCULARLY EVERY 6 HOURS NEEDED FOR ADRENAL STRESS, USE WHEN VOMITING OR DIARRHEA PREVENTS USE OF THE ORAL DOSE. - desmopressin acetate (DDAVP) 0.1 mg tablet Take 0.1 mg by mouth three times daily. - liothyronine (CYTOMEL) 5 mcg tablet Take 5 mcg by mouth twice daily. - carBAMazepine (TEGRETOL) 200 mg tablet Take 2 tablets by mouth three times daily. - ezetimibe (ZETIA) 10 mg tablet Take 10 mg by mouth every morning. - REPATHA SURECLICK 140 mg/mL pen injector INJECT 140 MG UNDER THE SKIN EVERY 2 WEEKS - hydrOXYzine HCl (ATARAX) 25 mg tablet Take 25 mg by mouth as needed. - omeprazole (PRILOSEC) 40 mg capsule Take 40 mg by mouth as needed. - SUMAtriptan (IMITREX) 100 mg tablet Take 100 mg by mouth. - esterified estrogens-methylTESTOSTERone (ESTRATEST) 1.25-2.5 mg per tablet Take 1 tablet by mouth once daily. - tiZANidine (ZANAFLEX) 4 mg tablet Take 4 mg by mouth as needed. Problem List As Of Date 08/06/2024 Noted Resolved Hearing Impairment [[id number]] 09/27/2009 Migraines [G43.909] 05/31/2010 Chronic suppurative otitis media of both ears [*09/20/2011 Sleep apnea [G47.30] Trigeminal neuralgia [G50.0] Hearing difficulty [H91.90] Narcolepsy [G47.419] Hypothyroidism [E03.9] Hyperglycemia [R73.9] Osteopenia [M85.80] Dyslipidemia [E78.5] Fracture [T14.8XXA] Radiculopathy [M54.10] Chronic pain [G89.29] 09/24/2013 Adrenal insufficiency [E27.40] 10/29/2013 Rotator cuff (capsule) sprain [S43.429A] 08/12/2014 Intractable migraine without aura and without s*09/27/2015 Chronic daily headache [R51.9] 09/27/2015 Medication overuse headache [G44.40] 09/27/2015 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 Rectocele [N81.6] 12/06/2015 01/20/2016 Intractable chronic migraine without aura and w*12/14/2015 Conductive (more content not included)...[facility] [id number] (EUGSRM) PAO LION ([id number]) 1970 F Date Time Provider Department 07/31/24 CRISTINA GREEN During your visit today, we recorded the following information about you: Marleni Bedolla RN 07/31/2024 11:34 AM Signed Spoke with pt: Right inguinal hernia Pain with moving up and down - otherwise none Denies drainage and bleeding Denies any issue with urination Has had BM Reminded of post op on 08/17 Discussed return call with questions or concerns - reports understanding and intent to comply FYI Allergies As of Date: 07/31/2024 Noted Allergy Reaction BIAXIN (CLARITHROMYCIN) 07/26/2010 8 - GI Upset SUTURES 10/29/2013 2 - Rash 4 - Hives 7 - Swelling 9 - Itching Comments: Specifically, cat gut sutures CYMBALTA (DULOXETINE) 06/20/2011 7 - Swelling Comments: Severe abdominal pain DEMEROL (MEPERIDINE (PF)) 05/31/2010 11 - Vomiting INDOMETHACIN 12/13/2010 7 - Swelling Comments: Had 4+ edema in legs and arms the day after taking a new prescription. MORPHINE 05/31/2010 11 - Vomiting NAPROXEN 01/05/2011 8 - GI Upset PENICILLINS 10/23/2004 2 - Rash 4 - Hives Comments: Patient can tolerate Augmentin VANCOMYCIN 12/08/2015 8 - GI Upset VERSED (MIDAZOLAM HCL) 05/31/2010 11 - Vomiting Z PACK (AZITHROMYCIN) 04/06/2011 2 - Rash 8 - GI Upset Date Reviewed: 07/30/2024 Reviewed by: Alexus Reynolds RN - Fully Assessed Reason for Visit: Patient Update [1234] Prescriptions as of 07/31/2024 - acetaminophen (TYLENOL EXTRA STRENGTH) 500 mg tablet Take 2 tablets by mouth every 6 hours as needed for pain. - polyethylene glycol 3350 (MIRALAX) 17 gram/dose powder Take 17 g by mouth once daily. Dissolve dose in 4 - 8 ounces of liquid and take as directed. - oxyCODONE IR (ROXICODONE) 5 mg immediate release tablet Take 1 tablet by mouth every 8 hours as needed for pain for up to 3 days. - amoxicillin-clavulanate potassium (AUGMENTIN) 875-125 mg per tablet Take 1 tablet by mouth two times a day. - lisdexamfetamine (VYVANSE) 50 mg capsule Take 1 capsule by mouth once daily for 30 days. - lisdexamfetamine (VYVANSE) 50 mg capsule Take 1 capsule by mouth once daily for 30 days. Patient should start on August 08, 2024. - lisdexamfetamine (VYVANSE) 50 mg capsule Take 1 capsule by mouth once daily for 30 days. Patient should start on September 07, 2024. - Milnacipran (SAVELLA) 12.5 mg tab Take 12.5 mg by mouth once daily. - XYWAV 0.5 gram/mL soln oral liquid Take 9 mL by mouth at bedtime and 4 hours after. - keTORolac (TORADOL) 60 mg/2 mL soln INJECT 2ML INTRAMUSCULARLY ONE TIME ONLY FOR 1 DOSE - ondansetron (ZOFRAN) 8 mg tablet Take by mouth three times a day as needed. - levothyroxine (SYNTHROID) 50 mcg tablet TAKE 1 TABLET BY MOUTH SATURDAY THROUGH SATURDAY. SKIP SATURDAY. - dexAMETHasone sodium phosphate (DECADRON) 4 mg/mL injection INJECT 1ML (4MG) INTRAMUSCULARLY EVERY 6 HOURS NEEDED FOR ADRENAL STRESS, USE WHEN VOMITING OR DIARRHEA PREVENTS USE OF THE ORAL DOSE. - desmopressin acetate (DDAVP) 0.1 mg tablet Take 0.1 mg by mouth three times daily. - liothyronine (CYTOMEL) 5 mcg tablet Take 5 mcg by mouth twice daily. - carBAMazepine (TEGRETOL) 200 mg tablet Take 2 tablets by mouth three times daily. - ezetimibe (ZETIA) 10 mg tablet Take 10 mg by mouth every morning. - REPATHA SURECLICK 140 mg/mL pen injector INJECT 140 MG UNDER THE SKIN EVERY 2 WEEKS - hydrOXYzine HCl (ATARAX) 25 mg tablet Take 25 mg by mouth as needed. - omeprazole (PRILOSEC) 40 mg capsule Take 40 mg by mouth as needed. - SUMAtriptan (IMITREX) 100 mg tablet Take 100 mg by mouth. - esterified estrogens-methylTESTOSTERone (ESTRATEST) 1.25-2.5 mg per tablet Take 1 tablet by mouth once daily. - tiZANidine (ZANAFLEX) 4 mg tablet Take 4 mg by mouth as needed. Problem List As Of Date 07/31/2024 Noted Resolved Hearing Impairment [FIM2951] 09/27/2009 Migraines [G43.909] 05/31/2010 Chronic suppurative otitis media of both ears [*09/20/2011 Sleep apnea [G47.30] Trigeminal neuralgia [G50.0] Hearing difficulty [H91.90] Narcolepsy [G47.419] Hypothyroidism [E03.9] Hyperglycemia [R73.9] Osteopenia [M85.80] Dyslipidemia [E78.5] Fracture [T14.8XXA] Radiculopathy [M54.10] Chronic pain [G89.29] 09/24/2013 Adrenal insufficiency [E27.40] 10/29/2013 Rotator cuff (capsule) sprain [S43.429A] 08/12/2014 Intractable migraine without aura and without s*09/27/2015 Chronic daily headache [R51.9] 09/27/2015 Medication overuse headache [G44.40] 09/27/2015 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 Rectocele [N81.6] 12/06/2015 01/20/2016 Intractable chronic migraine without aura and w*12/14/2015 Conductive hearing loss, bilateral [H90.0] 06/09/2018 Tinnitus, bilateral [H93.13] 07/14/2018 Cholesteatoma, middle ear, 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] 08/05/2018 POTS (postural (more content not included)...[facility] POSTPROC EVALon [id number] POSTPROC EVALHNO ID: [id number] Author: KELVIN PINZON MD Service: Anesthesiology Author Type: Anesthesiologist Type: Anesthesia Postprocedure Evaluation Filed: 07/30/2024 12:39 Note Text: POST ANESTHESIA EVALUATION NOTE : 1970 Procedure Summary Date: 07/30/24 Room / Location: [facility] OR07 / [facility] OR Anesthesia Start: 936 Anesthesia Stop: 1144 Procedure: REPAIR INITIAL INGUINAL HERNIA = OR > AGE 5 REDUCIBLE PRICILLA APPROACH WITH MESH (Right: Groin) Diagnosis: Right inguinal hernia (Right inguinal hernia [K40.90]) Surgeons: Cristina Green DO Responsible Provider: Kelvin Pinzon MD Anesthesia Type: MAC ASA Status: 2 Anesthesia Type: MAC Last Vitals Vitals Value Taken Time BP 98/62 07/30/24 1220 Temp 36.2 ?C (97.2 ?F) 07/30/24 1220 Pulse 78 07/30/24 1215 Resp 18 07/30/24 1220 SpO2 99 % 07/30/24 1220 Vitals shown include unfiled device data. Post Anesthesia Patient Status Patient Evaluation: PACU. PACU/ICU Patient Condition: stable. Anticipated Disposition: phase 2 then home. Neurological Status: aware and responsive. Pulmonary Status: breathing comfortably on room air Airway Control: returned to baseline unsupported. Cardiovascular Status: stable. Pain Management: clinically adequate Postoperative Hydration: acceptable. Intraoperative Events: no significant anesthesia events Post Operative Nausea/Vomiting Status: no significant post operative nausea or vomiting Recommendation: continue current plan of care and further care per PACU/ICU/floor team. Anesthesia Observations No Documentation SIGNATURE: Kelvin Pinzon MD PATIENT NAME: Pao Lion DATE: July 30, 2024 TIME: 12:39 PM [facility]: [id number] PRE-OPon [id number] PRE-OPHNO ID: [id number] Author: KELVIN PINZON MD Service: Anesthesiology Author Type: Anesthesiologist Type: Anesthesia Preprocedure Evaluation Filed: 07/30/2024 09:29 Note Text: ANESTHESIOLOGY DAY OF SURGERY NOTE : 1970 Procedure Information Date/Time: 07/30/24 1010 Procedure: REPAIR INITIAL INGUINAL HERNIA = OR > AGE 5 REDUCIBLE PRICILLA APPROACH WITH MESH (Right: Groin) Location: [facility] OR07 / [facility] OR Surgeons: Cristina Green DO Estimated body mass index is 24.01 kg/m? as calculated from the following: Height as of 07/16/24: 153.7 cm (5' 0.5 ). Weight as of 07/16/24: 56.7 kg (125 lb). Most recent hematocrit and potassium results: Hematocrit 44.7 02/16/2022 Potassium 4.3 08/10/2022 Relevant Problems No relevant active problems I - PHYSICAL EVALUATION AIRWAY Patient intubated: No. Tracheostomy tube not present Mallampati: I. TM distance: >3 FB. Neck ROM: full ROM without neurological symptoms. Mouth opening: adequate. Short neck: no. Thick neck: no DENTAL Dental findings: teeth intact. Additional exam findings: no II - ANESTHESIA PLAN ASA Score: 2 Anesthetic Plan: MAC NPO Status: adequate Beta Tyree Monitoring Plan Monitoring plan: standard ASA. Post Procedure Analgesic Plan Postoperative analgesic plan: parenteral or oral opioids and multimodal analgesia. Informed Consent Anesthetic risks, benefits, alternatives and personnel discussed. Consent obtained from: patient. Anesthetic risks, benefits, alternatives, personnel and consent discussed: yes. Patient / Responsible Democrat agrees to proceed: yes Patient / Surrogate agrees to blood products: blood products not planned Significant changes in the patient condition since the History and Physical, not otherwise documented in primary service progress note: no. Potential Anesthesia issues that may suggest increased risk of complications or contraindication to planned procedure: none. Vitals Value Taken Time BP 142/7 07/30/24 0901 Pulse Resp 18 07/30/24 0901 Temp 36.6 ?C (97.9 ?F) 07/30/24 0901 SpO2 Facility-Administered Medications as of 07/30/2024 Medication Dose Route Frequency lactated ringers iv infusion 5-30 mL/hr INTRAVENOUS CONTINUOUS NaCl 0.9% iv flush bag 20 mL INTRAVENOUS PRN ceFAZolin iv piggyback 2 g in D5W (iso-osmotic) 100 mL (ANCEF) 2 g INTRAVENOUS Pre-Op Once [COMPLETED] acetaminophen 1,000 mg tab(s) (TYLENOL) 1,000 mg ORAL Pre-Op Once Outpatient Medications as of 07/30/2024 Medication Sig Milnacipran (SAVELLA) 12.5 mg tab Take 12.5 mg by mouth once daily. XYWAV 0.5 gram/mL soln oral liquid Take 9 mL by mouth at bedtime and 4 hours after. keTORolac (TORADOL) 60 mg/2 mL soln INJECT 2ML INTRAMUSCULARLY ONE TIME ONLY FOR 1 DOSE ondansetron (ZOFRAN) 8 mg tablet Take by mouth three times a day as needed. levothyroxine (SYNTHROID) 50 mcg tablet TAKE 1 TABLET BY MOUTH SATURDAY THROUGH SATURDAY. SKIP SATURDAY. dexAMETHasone sodium phosphate (DECADRON) 4 mg/mL injection INJECT 1ML (4MG) INTRAMUSCULARLY EVERY 6 HOURS NEEDED FOR ADRENAL STRESS, USE WHEN VOMITING OR DIARRHEA PREVENTS USE OF THE ORAL DOSE. desmopressin acetate (DDAVP) 0.1 mg tablet Take 0.1 mg by mouth three times daily. liothyronine (CYTOMEL) 5 mcg tablet Take 5 mcg by mouth twice daily. carBAMazepine (TEGRETOL) 200 mg tablet Take 2 tablets by mouth three times daily. ezetimibe (ZETIA) 10 mg tablet Take 10 mg by mouth every morning. REPATHA SURECLICK 140 mg/mL pen injector INJECT 140 MG UNDER THE SKIN EVERY 2 WEEKS hydrOXYzine HCl (ATARAX) 25 mg tablet Take 25 mg by mouth as needed. omeprazole (PRILOSEC) 40 mg capsule Take 40 mg by mouth as needed. SUMAtriptan (IMITREX) 100 mg tablet Take 100 mg by mouth. esterified estrogens-methylTESTOSTERone (ESTRATEST) 1.25-2.5 mg per tablet Take 1 tablet by mouth once daily. tiZANidine (ZANAFLEX) 4 mg tablet Take 4 mg by mouth as needed. [] ofloxacin (FLOXIN) 0.3 % otic solution Use 3 Drops in the ears two times a day for 14 days. May substitute ofloxacin ophthalamic pending availability I have interviewed and examined the patient. I have reviewed the medical record and/or the pre-anesthesia evaluation, pertinent labs, and test results. This contains updated information obtained within 48 hours of Surgery/Procedure. SIGNATURE: Kelvin Pinzon MD PATIENT NAME: Pao Lion DATE: July 30, 2024 TIME: 9:29 AM CSN: [id number] OP NOTon [id number] OP NOTHNO ID: [id number] Author: ROSSY ONOFRE DO Service: General Surgery Author Type: Resident Type: Brief Op Note Filed: 07/30/2024 11:43 Note Text: BRIEF OPERATIVE / PROCEDURE NOTE LOG ID: [id number] SURGERY/PROCEDURE DATE: 07/30/2024 INCISION/PROCEDURE START TIME: 10:03 AM INCISION CLOSE/PROCEDURE END TIME: 11:31 AM SURGEON(S)/PROCEDURALIST(S) AND MOLD SHEET CLEANER(S): Surgeons and Role: * Cristina Green DO - Primary * Rossy Onofre DO - Resident - Assisting Physician Watch Mechanic: Belkys Armenta PA-C SURGERY/PROCEDURE(S): Open right inguinal hernia repair with mesh ANESTHESIA: Monitored Anesthesia Care FINDINGS: direct right inguinal hernia ESTIMATED BLOOD LOSS: 5 mls SPECIMENS: ID Type Source Tests Collected by Time Destination A : round ligament Tissue Ligament SURGICAL PATHOLOGY Cristina Green DO 07/30/2024 10:39 AM COMPLICATIONS: None IMPLANTS: Implant Name Type Inv. Item Serial No. Stitch Marker Lot No. LRB No. Used Action MESH PARIETENE MACROPOROUS 15X7.5CM SURGICAL - [id number] Mesh MESH PARIETENE MACROPOROUS 15X7.5CM SURGICAL [employer] [id number] Right 1 Implanted CLOSURE TECHNIQUE: Primary PRE-OP/PRE-PROCEDURE DIAGNOSIS: Right inguinal hernia POST-OP/POST-PROCEDURE DIAGNOSIS: Right direct inguinal hernia Patient was accompanied to the next level of care by a licensed practitioner from the surgical team pending completion of this brief op note (or operative note) SIGNATURE: Rossy Onofre DO PATIENT NAME: Pao Lion DATE: July 30, 2024 TIME: 11:42 [facility] [id number] [facility] ID: [id number] Author: JAIDA BAEZ RN Service: PICC Team Author Type: Registered Nurse Type: Nursing Progress Note Filed: 07/30/2024 10:06 Note Text: VASCULAR ACCESS PROGRESS NOTE SERVICE DATE: 07/30/2024 SERVICE TIME: 09:05 am 9:06 AM Requested to see patient who has had unsuccessful IV attempts, needs new IV. Using ultrasound guidance, A peripheral IV was started in the Right forearm with a Angio cath: 22 gauge. 2 inches in length, on first attempt. Brisk blood return and flushed without difficulty with 10 mL saline. No symptoms of complications. SIGNATURE: Jaida Baez RN PATIENT NAME: Pao Lion DATE: July 30, 2024 TIME: 10:06 AM PAGER/CONTACT #: [id number] NOon [id number] NOHNO ID: [id number] Author: CRISTINA GREEN DO Service: General Surgery Author Type: Physician Type: Operative Report Filed: 07/31/2024 16:38 Note Text: OPERATIVE/PROCEDURE REPORT LOG ID: [id number] SURGERY/PROCEDURE DATE: 07/30/2024 INCISION/PROCEDURE START TIME: 10:03 AM INCISION CLOSE/PROCEDURE END TIME: 11:31 AM SURGEON(S)/PROCEDURALIST(S) AND MOLD SHEET CLEANER(S): Surgeons and Role: * Cristina Green DO - Primary * Rossy Onofre DO - Resident - Assisting Physician Watch Mechanic: Belkys [place] PA-C SURGERY/PROCEDURE(S): Open right inguinal hernia repair with mesh placement ANESTHESIA: Monitored Anesthesia Care INDICATION: 54 year old female who presented to the general surgery office with a few month history of a right groin bulge and found to have a reducible inguinal hernia on exam. Surgical repair vs observation was discussed with the patient, and she opted for surgical management. An open repair with mesh was planned. The risks, benefits, and alternatives were discussed with the patient, and she agreed to proceed. SURGERY/PROCEDURE DETAILS: The patient was brought to the operating room and placed supine on the table. A sign in was completed with the surgeon, OR staff, and anesthesiologist present. The patient underwent general anesthesia without any difficulties. The right groin was prepped and draped in a sterile fashion. A final time out was then completed. Local anesthesia with 1% lidocaine and 0.5% marcaine with epinephrine were injected into the skin overlying the hernia between the right ASIS and pubic tubercle. Next, an approximately 3 cm incision was made in the same location and deepened down to the external oblique fascia. The external ring was identified. The fascia was anesthetized. A small incision was made in the external oblique fascia and was opened laterally and medially. Next, the hernia was identified and found to be direct. The round ligament was carefully dissected out, ligated with 3-0 vicryl, and sent to pathology. The hernia sac and its contents were reduced. The internal oblique muscle was from the transversus abdominus fascia using electrocautery. This fascia was approximated to the shelving edge of the inguinal ligament using 2-0 prolene interrupted sutures. Next, a 15cm x 7.5cm Macroporous Parietene mesh was cut to size, approximately 4x7 cm The mesh was sutured to the shelving edge of the inguinal ligament laterally and the conjoint tendon medially using interrupted 2-0 prolene sutures. The wound cavity was irrigated and hemostasis was achieved. The external oblique aponeurosis was reapproximated using running 0-vicryl. Prashanth's fascia was closed with running 3-0 vicryl. The dermis was closed with 3-0 vicryl. The skin was closed with 4-0 monocryl in a subcuticular fashion and skin glue was applied. All instrument, sponge, and needle counts were correct at the end of the surgery. The patient tolerated the surgery well and was extubated without any difficulties. She was taken to PACU in stable condition. PRE-OP/PRE-PROCEDURE DIAGNOSIS: Right inguinal hernia POST-OP/POST-PROCEDURE DIAGNOSIS: Direct right inguinal hernia ESTIMATED BLOOD LOSS: 5 mls SPECIMENS: ID Type Source Tests Collected by Time Destination A : round ligament Tissue Ligament SURGICAL PATHOLOGY [facility] hospitalCristina DO 07/30/2024 10:39 AM IMPLANTABLE DEVICES: Implant Name Type Inv. Item Serial No. Stitch Marker Lot No. LRB No. Used Action MESH PARIETENE MACROPOROUS 15X7.5CM SURGICAL - [id number] Mesh MESH PARIETENE MACROPOROUS 15X7.5CM SURGICAL [employer] [id number] Right 1 Implanted DRAINS: None COMPLICATIONS: None SIGNATURE: Rossy Onofre DO PATIENT NAME: Pao Lion DATE: July 30, 2024 TIME: 4:03 PM I was present for the entire procedure and made all decisions regarding the case. Dr. Onofre performed parts of the case under my direct supervision and guidance. I personally performed the moreno components of the procedure. I have reviewed the documentation and attest to its accuracy. Cristina Green [facility] CenterURGICAL PATHOLOGYon [id number] REPORT Backus Hospitalment on above:Order Comment: Specimen Type: TISSUE SPECIMEN Ordering Facility: [facility] Address: [address] [place], [place] [address]Result Comment: Surgical Pathology Report Case: [id number] Authorizing Provider: Cristina Green DO Collected: 07/30/2024 10:39 AM Ordering Location: [facility] Surgical Received: 07/30/2024 12:11 PM Services Pathologist: Jean Pierre Canela MD Specimen: Ligament, round ligamentPerformed By: #### S #### [facility] CLIA [id number] [address] [place] [address] STATES OF AMERICACLINICAL HISTORYNormArkansas Heart HospitalComment on above:Order Comment: Specimen Type: TISSUE SPECIMEN Ordering Facility: [facility] Address: [address] [place], [place] [id number] Comment: Pre-op diagnosis: Right inguinal hernia [K40.90]Performed By: #### S #### [facility] CLIA [id number] [address] [place] [address] STATES OF [facility] HOSPITALFINMD DIAGNOSISNormalENorthwest Mississippi Medical CenterComment on above:Order Comment: Specimen Type: TISSUE SPECIMEN Ordering Facility: [facility] Address: [address] [place], [place] [id number] Comment: Soft tissue, excision: - Benign nerve with reactive changes. Performed By: #### S #### [facility] CLIA [id number] [address] [place] [address] STATES OF AMERICAFINAL PERFORMING LABNormal [facility] HospitalComment on above:Order Comment: Specimen Type: TISSUE SPECIMEN Ordering Facility: [facility] Address: [address] [place], [place] [id number] Comment: Diagnostic interpretation performed at [facility], [address] [place], [place] [address] CLIA# [id number] Plant Changer: Remberto Walker M.D.Performed By: #### S #### [facility] CLIA [id number] [address] [place] [address] [place] STATES OF AMERICAGROSS DESCRIPTIONA. Ligament NormalEuclid HospitalComment on above:Order Comment: Specimen Type: TISSUE SPECIMEN Ordering Facility: [facility] Address: [address] [place], [place] [address]Result Comment: Received in formalin, labeled round ligament is a harrington-brown fibrous tissue fragment measuring 2 x 0.6 x 0.2 cm. There are no areas of induration, nodularity or hemorrhage. The specimen is submitted entirely in A1. KSZ July 31, 2024 10:31 AM Gross examination performed at [place], [place] [address]Performed By: #### S #### [facility] CLIA [id number] [address] [place] [address] UNITED STATES OF AMERICAANES POSTPROC EVALon [id number] POSTPROC EVALHNO ID: [id number] Author: ALEXANDER VELASCO MD Service: Anesthesiology Author Type: Anesthesiologist Type: Anesthesia Postprocedure Evaluation Filed: 05/29/2024 10:07 Note Text: POST ANESTHESIA EVALUATION NOTE : 1970 Procedure Summary Date: 05/29/24 Room / Location: [address] / [facility] Anesthesia Start: 829 Anesthesia Stop: 921 Procedure: HEMORRHOIDECTOMY INTERNAL TRANSANAL HEMORRHOIDAL DEARTERIALIZATION, 2 OR MORE HEMORRHOID COLUMNS/GROUPS INCL ULTRASOUND GUIDANCE W/MUCOPEXY WHEN PERFORMED (Anus) Diagnosis: Hemorrhoids, unspecified hemorrhoid type (Hemorrhoids, unspecified hemorrhoid type [K64.9]) Surgeons: Ester Cali MD Responsible Provider: Alexander Velasco MD Anesthesia Type: MAC ASA Status: 2 Anesthesia Type: MAC Last Vitals Vitals Value Taken Time BP 127/87 05/29/24 0930 Temp 36.4 ?C (97.5 ?F) 05/29/24 0920 Pulse 74 05/29/24 0930 Resp 16 05/29/24 0930 SpO2 100 % 05/29/24 0930 Post Anesthesia Patient Status Patient Evaluation: PACU. PACU/ICU Patient Condition: stable. Anticipated Disposition: phase 2 then home. Neurological Status: aware and responsive. Pulmonary Status: breathing comfortably on room air Airway Control: returned to baseline unsupported. Cardiovascular Status: stable. Pain Management: clinically adequate - multimodal analgesia pain management approach Postoperative Hydration: acceptable. Intraoperative Events: no significant anesthesia events Post Operative Nausea/Vomiting Status: no significant post operative nausea or vomiting Recommendation: continue current plan of care. Anesthesia Observations No Documentation SIGNATURE: Alexander Velasco MD PATIENT NAME: Pao Lion DATE: May 29, 2024 TIME: 10:07 AM CSN: [id number] [facility] PRE-OPon [id number] PRE-OPHNO ID: [id number] Author: ALEXANDER VELASCO MD Service: Anesthesiology Author Type: Anesthesiologist Type: Anesthesia Preprocedure Evaluation Filed: 05/29/2024 08:04 Note Text: ANESTHESIOLOGY DAY OF SURGERY NOTE : 1970 Procedure Information Date/Time: 05/29/24814 Procedure: HEMORRHOIDECTOMY INTERNAL TRANSANAL HEMORRHOIDAL DEARTERIALIZATION, 2 OR MORE HEMORRHOID COLUMNS/GROUPS INCL ULTRASOUND GUIDANCE W/MUCOPEXY WHEN PERFORMED (Anus) Location: [address] / [facility] Surgeons: Ester Cali MD Estimated body mass index is 24.41 kg/m? as calculated from the following: Height as of 05/28/24: 152.4 cm (5'). Weight as of 05/28/24: 56.7 kg (125 lb). Most recent hematocrit and potassium results: Hematocrit 44.7 02/16/2022 Potassium 4.3 08/10/2022 Relevant Problems ANESTHESIA (+) Sleep apnea CARDIO (+) Intractable chronic migraine without aura and without status migrainosus (+) Intractable migraine without aura and without status migrainosus (+) Migraines (+) Supraventricular tachycardia (HCC) ENDO (+) Hypothyroidism NEURO-PSYCH (+) Chronic daily headache (+) Intractable chronic migraine without aura and without status migrainosus (+) Intractable migraine without aura and without status migrainosus (+) Medication overuse headache (+) Migraines PULMONARY (+) Sleep apnea I - PHYSICAL EVALUATION AIRWAY Patient intubated: No. Tracheostomy tube not present Mallampati: II. TM distance: >3 FB. Neck ROM: full. Mouth opening: adequate. Short neck: no. Thick neck: no DENTAL Normal dental observations. Dental findings: teeth intact. Additional exam findings: yes. CARDIOVASCULAR Normal cardiovascular observations. Rhythm: regular Rate: normal PULMONARY Normal pulmonary observations. Breath sounds clear to auscultation. II - ANESTHESIA PLAN ASA Score: 2 Anesthetic Plan: MAC The patient is not a current smoker. NPO Status: adequate Beta Tyree Monitoring Plan Monitoring plan: Standard ASA. Post Procedure Analgesic Plan Postoperative analgesic plan: multimodal analgesia. Informed Consent Anesthetic risks, benefits, alternatives, personnel and consent discussed: yes. Patient / Responsible Democrat agrees to proceed: yes Patient / Surrogate agrees to blood products: blood products not planned Significant changes in the patient condition since the History and Physical, not otherwise documented in primary service progress note: no. Potential Anesthesia issues that may suggest increased risk of complications or contraindication to planned procedure: none. Vitals Value Taken Time BP 121/65 05/29/24 0800 Pulse 94 05/29/24 0801 Resp Temp SpO2 100 % 05/29/24 0801 Vitals shown include unfiled device data. Facility-Administered Medications as of 05/29/2024 Medication Dose Route Frequency lidocaine (PF) 10 mg/mL (1 %) 1-2 mg injection (XYLOCAINE) 0.1-0.2 mL INTRADERMAL PRN lactated ringers iv infusion 5-30 mL/hr INTRAVENOUS CONTINUOUS NaCl 0.9% iv flush bag 20 mL INTRAVENOUS PRN acetaminophen 1,000 mg tab(s) (TYLENOL) 1,000 mg ORAL Pre-Op Once promethazine 12.5 mg tab(s) (PHENERGAN) 12.5 mg ORAL Pre-Op Once lactated ringers iv infusion 30 mL/hr INTRAVENOUS CONTINUOUS Outpatient Medications as of 05/29/2024 Medication Sig lisdexamfetamine (VYVANSE) 50 mg capsule Take 1 capsule by mouth once daily for 30 days. Do not start before May 09, 2024. ondansetron (ZOFRAN) 8 mg tablet Take by mouth three times a day as needed. levothyroxine (SYNTHROID) 50 mcg tablet TAKE 1 TABLET BY MOUTH SATURDAY THROUGH SATURDAY. SKIP SATURDAY. desmopressin acetate (DDAVP) 0.1 mg tablet Take 0.1 mg by mouth three times daily. liothyronine (CYTOMEL) 5 mcg tablet Take 5 mcg by mouth twice daily. ezetimibe (ZETIA) 10 mg tablet Take 10 mg by mouth every morning. esterified estrogens-methylTESTOSTERone (ESTRATEST) 1.25-2.5 mg per tablet Take 1 tablet by mouth once daily. lisdexamfetamine (VYVANSE) 50 mg capsule Take 1 capsule by mouth once daily for 30 days. XYWAV 0.5 gram/mL soln oral liquid Take 9 mL by mouth at bedtime and 4 hours after. [START ON 06/08/2024] lisdexamfetamine (VYVANSE) 50 mg capsule Take 1 capsule by mouth once daily for 30 days. Do not start before June 08, 2024. keTORolac (TORADOL) 60 mg/2 mL soln INJECT 2ML INTRAMUSCULARLY ONE TIME ONLY FOR 1 DOSE dexAMETHasone sodium phosphate (DECADRON) 4 mg/mL injection INJECT 1ML (4MG) INTRAMUSCULARLY EVERY 6 HOURS NEEDED FOR ADRENAL STRESS, USE WHEN VOMITING OR DIARRHEA PREVENTS USE OF THE ORAL DOSE. carBAMazepine (TEGRETOL) 200 mg tablet Take 2 tablets by mouth three times daily. (Patient not taking: Reported on 05/28/2024) REPATHA SURECLICK 140 mg/mL pen injector INJECT 140 MG UNDER THE SKIN EVERY 2 WEEKS hydrOXYzine HCl (ATARAX) 25 mg tablet Take 25 mg by mouth as needed. omeprazole (PRILOSEC) 40 mg capsule Take 40 mg by mouth as needed. SUMAtriptan (IMITREX) 10 (more content not included)...[facility] NURSING PRODarnell [id number] PROGHNO ID: [id number] Author: WEST MUNOZ RN Service: Nursing Author Type: Registered Nurse Type: Nursing Progress Note Filed: 05/29/2024 08:05 Note Text: READINESS TO LEARN COGNITIVE ABILITY: Alert and oriented MOTIVATION TO LEARN: Eager Interested FAMILY SUPPORT: None - Unavailable/disinterested INSTRUCTION PROVIDED TO: Patient PATIENT LEARNS BEST BY: Verbal Instruction FACTORS AFFECTING LEARNING: None PHYSICAL LIMITATIONS AFFECTING LEARNING: None LEARNING RESPONSE DIAGNOSIS: ADULT: Well Adult PATIENT/FAMILY RESPONSE: Verbalizes understanding of: PRE-OPERATIVE INSTRUCTIONS-Correct action to take to follow pre-operative instructions PRE-PROCEDURE INSTRUCTIONS-Correct action to take to follow pre-procedure instructions METHOD OF INSTRUCTION: Verbal instruction FOLLOW-UP PLAN: Patient instructed to call with any further issues INSTRUCTIONAL AIDS USED: NA SUPPLEMENTAL MATERIAL PROVIDED TO PATIENT: None REFERRAL (RECOMMENDATION): None Electronically Signed By: Berger HospitalOPERATIVE NOon [id number] NOHNO ID: [id number] Author: ESTER CALI MD Service: Colorectal Author Type: Physician Type: Operative Report Filed: 05/29/2024 09:25 Note Text: COLON AND RECTAL SURGERY OPERATIVE REPORT PATIENT NAME: Pao Lion ADMISSION DATE: 05/29/2024 LOG ID: [id number] SURGERY/PROCEDURE DATE: 05/29/2024 INCISION/PROCEDURE START TIME: 8:49 AM INCISION CLOSE/PROCEDURE END TIME: 9:13 AM AGE: [age] year old SEX: female SURGEON(S)/PROCEDURALIST(S) AND MOLD SHEET 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 Mildly enlarged internal hemorrhoids all locations. Normal tone, no pelvic floor hypertrophy or spasm. DESCRIPTION OF PROCEDURE: The patient was brought the operating room, placed under MAC anesthesia in the prone emma-knife position. A surgical time-out was performed. The perineum was prepped and draped in normal sterile fashion and anesthetized with 40 mL of Exparel/0.5% Marcaine. A detailed digital rectal exam and anoscopy was performed which revealed: Resolving thrombosis right anterior external hemorrhoid, otherwise normal external hemorrhoids. Mildly enlarged internal hemorrhoids all locations. Normal tone, no pelvic floor hypertrophy or spasm. Using the THD machine, doppler ultrasound located the arterial pedicles at the 1, 3, 5, 7, 9, and 11 o'clock positions. After locating the arterial pedicle, the prepackaged THD Truglyde suture was used to ligate the pedicle in a figure of 8 fashion and was tied. There was not sufficient redundant internal hemorrhoid tissue to warrant suture hemorrhoidopexy. Hemostasis was obtained, dressing was applied. ESTIMATED BLOOD LOSS: 10 mL SPECIMENS: None INTRAOPERATIVE FLUIDS: See anesthesia record. SPONGE/INSTRUMENT/NEEDLE COUNTS: Correct x2. PRESENCE STATEMENT: I was present for the entire procedure as I have dictated above. Ester Cali M.D. Department of Surgery Division of Colon and Rectal SurgeryAmesbury Health CenterThyrotropin [Units/volume] in Serum or PlasmaOrdered By: Ela Eugene on 60-18-9730LFH Qn 1.03 m[IU]/L0.45-5.33[facility] HospitalThyroxine (T4) free [Mass/volume] in Serum or PlasmaOrdered By: Ela Eugene on 46-74-0772Vvrq T4 [Mass/Vol]0.70 ng/dL0.61-1.12[facility] HospitalTriiodothyronine (T3) Free [Mass/volume] in Serum or PlasmaOrdered By: Ela Eugene on 52-76-1624Xkvs T3 [Mass/Vol]3.12 pg/mL2.50-3.90[facility] EMG(NEURO/NI)on 49-67-4016Lnljvwzhg ClinicCholesterol [Mass/volume] in Serum or PlasmaOrdered By: Ela Eugene on 98-46-4438Oexjqkktzqv [Mass/Vol]158 mg/dL 140-200Providence HospitalComment on above:Chol less than 200 mg/dl low riskChol 201-239 mg/dl borderline riskChol 240 mg/dl and greater high riskCholesterol in LDL Calc [Mass/Vol]Ordered By: Ela Eugene on 10-29-2023 Cholesterol in LDL [Mass/Vol]74 mg/dL0-100[facility] Comment on above:LDL ATP III CLASSIFICATIONLDL less than 100 mg/dL OptimalLDL 100-129 mg/dL Near or above tyftvueWHG076-568 mg/dL Borderline highLDL 160-189 mg/dL HighLDL greater than 189 mg/dL Very highCholesterol in VLDL Calc [Mass/Vol]Ordered By: Ela Eugene on 95-99-5047Eszeplouvvq in VLDL [Mass/Vol]9 mg/dLTriHealth McCullough-Hyde Memorial Hospitalerum or plasma high density lipoprotein (HDL) cholesterol measurementOrdered By: Ela Eugene 99-06-7357Aektjmcyoma in HDL [Mass/Vol]75 mg/aT83-07YaqfhhfurProvidence HospitalComment on above: HDL CHOL ATP-III CLASSIFICATION Cardiovascular RiskHDL > or equal to 60 mg/dL LOWHDL < 40 mg/dL HIGHSerum or plasma total cholesterol/high density lipoprotein (HDL) cholesterol mass ratOrdered By: Ela Eugene on 10-29-2023 Cholesterol.total/Cholesterol in HDL [Mass ratio]2.1 {ratio}<5.0Prov[facility] HospitalThyrotropin [Units/volume] in Serum or PlasmaOrdered By: Ela Eugene on 65-55-0461PMK Qn0.84 m[IU]/L0.45-5.33[facility] HospitalThyroxine (T4) free [Mass/volume] in Serum or PlasmaOrdered By: Ela Eugene 66-01-4388Bvnz T4 [Mass/Vol]0.70 ng/dL0.61-1.12Prov[facility] HospitalTriglyceride [Mass/volume] in Serum or PlasmaOrdered By: Ela Eugene on 40-38-3051Czkokusfzwmp [Mass/Vol]46 mg/dL0-149Providence HospitalComment on above:TRIG ATP III CLASSIFICATIONTRIG less than 150 mg/dL NormalTRIG 150-199 mg/dL Borderline highTRIG 200-500 mg/dL High TRIG greater than 500 mg/dL Very highStandard traceable to the Center for Disease Co nrtrol and Prevention (CDC) test method.Triiodothyronine (T3) Free [Mass/volume] in Serum or PlasmaOrdered By: Ela Eugene on 71-44-4979Hkvp T3 [Mass/Vol]3.30 pg/mL2.50-3.90[facility] HospitalThyrotropin [Units/volume] in Serum or PlasmaOrdered By: Ela Eugene on 72-57-7741TMM Qn0.23 m[IU]/L 0.45-5.33[facility] HospitalThyroxine (T4) free [Mass/volume] in Serum or PlasmaOrdered By: Ela Eugene on 41-52-1645Fpiu T4 [Mass/Vol]0.80 ng/dL0.61-1.12[facility] HospitalTriiodothyronine (T3) Free [Mass/volume] in Serum or PlasmaOrdered By: Ela Eugene on 72-51-9640Vuoa T3 [Mass/Vol]3.43 pg/mL2.50-3.90Prov[facility] HospitalAlanine aminotransferase [Enzymatic activity/volume] in Serum or PlasmaOrdered By: London Dockery on 92-64-8700XTS [Catalytic activity/Vol]17 U/L7-52Prov[facility] HospitalAlbumin [Mass/volume] in Serum or Plasma by Bromocresol green (BCG) dye binding methoOrdered By: London Dockery on 40-96-4147Vbzcfmv BCG dye [Mass/Vol]4.5 g/dL3.5-5.7FLakeHealth Beachwood Medical CenterAlkaline phosphatase [Enzymatic activity/volume] in Serum or PlasmaOrdered By: London Dockery on 82-10-1509YBV [Catalytic activity/Vol]36 U/A38-654FoofryswbProvidence HospitalAspartate aminotransferase [Enzymatic activity/volume] in Serum or PlasmaOrdered By: London Dockery on 41-92-9197ORF [Catalytic activity/Vol]13 U/L 13-39Prov[facility] HospitalAutomated erythrocytes count in urine sediment (number/area)Ordered By: London Dockery on 98-36-6433LIU Auto (Urine sed) [#/Area]10-19 [HPF]0-4FLakeHealth Beachwood Medical CenterAutomated leukocytes count in urine sediment (number/area)Ordered By: London Dockery on 82-12-8328RWJ Auto (Urine sed) [#/Area]0-1 [HPF]0-4FLakeHealth Beachwood Medical CenterBasophils Auto (Bld) [#/Vol]Ordered By: London Dockery on 72-42-9681Ulflgjxrw (Bld) [#/Vol]0.0 10*3/uL0.0-0.2FLakeHealth Beachwood Medical CenterBasophils/100 WBC Auto (Bld)Ordered By: London Dockery on 89-10-1123Mmpzhwuyp/100 WBC (Bld)0.2 %. Providence HospitalBilirubin Test strip Ql (U)Ordered By: London Dockery on 16-51-2612Hnttwvdap Ql (U)NegativeNegativeProvidence HospitalBilirubin.total [Mass/volume] in Serum or PlasmaOrdered By: London Dockery on 65-80-2767Yxytvduyu [Mass/Vol]1.1 mg/dL0.3-1.0Prov[facility] HospitalCalcium [Mass/volume] in Serum or PlasmaOrdered By: London Dockery on 12-46-2917Kimxjrf [Mass/Vol]8.9 mg/dL8.6-10.3FLakeHealth Beachwood Medical Center Carbon dioxide, total [Moles/volume] in Serum or PlasmaOrdered By: London Dockery on 80-83-4119QJ0 [Moles/Vol]26.3 mmol/L21.0-31.0Prov[facility] HospitalChloride [Moles/volume] in Serum or PlasmaOrdered By: London Dockery on 45-62-1672Ficgbmzr [Moles/Vol]94 mmol/G02-339IlmzzhmuuProvidence Hospital Color Auto (U)Ordered By: Lonodn Dockery on 66-95-4440Viaue (U)YellowYellow Providence HospitalCreatinine [Mass/volume] in Serum or Plasma Ordered By: London Dockery on 38-72-7068Jmmhwtinzo [Mass/Vol]0.58 mg/dL0.60-1.20 [facility] HospitalEosinophils Auto (Bld) [#/Vol]Ordered By: London Dockery on 63-59-0530Iaoontccppg (Bld) [#/Vol]0.1 10*3/uL0.0-0.45Prov[facility] HospitalEosinophils/100 WBC Auto (Bld)Ordered By: London Dockery on 21-21-8148Qrpkgsuizqd/100 WBC (Bld)0.5 %.[facility] Erythrocyte distribution width Auto (RBC) [Ratio]Ordered By: London Dockery on 96-66-9870Snpjnbkkjdj distribution width (RBC) [Ratio]13.3 %11.9-15.3FLakeHealth Beachwood Medical CenterGlobulin Calc (S) [Mass/Vol]Ordered By: London Dockery on 93-09-7314Hhvrvfcv (S) [Mass/Vol]3.0 g/dLProvidence Hospital Glucose [Mass/volume] in Serum or PlasmaOrdered By: London Dockery on 06-22-2023 Glucose [Mass/Vol]85 mg/yV76-679FlpbgnkeaProvidence HospitalComment on above:ADA recommended reference rangeRandom Glucose Reference Range is dependent on time and content of last meal. Glucose of more than 200 mg/dL in a nonstressed, ambulatory subject supports the diagnosisof Diabetes Mellitus. Hematocrit Auto (Bld) [Volume fraction]Ordered By: Lnodon Dockery on 06-22-2023 Hematocrit (Bld) [Volume fraction]40.1 %34.0-46.4FLakeHealth Beachwood Medical CenterHemoglobin [Mass/volume] in BloodOrdered By: London Dockery on 06-22-2023 Hemoglobin (Bld) [Mass/Vol]13.5 g/dL11.8-15.4FLakeHealth Beachwood Medical Center Ketones Auto test strip (U) [Mass/Vol]Ordered By: London Dockery on 06-22-2023 Ketones (U) [Mass/Vol]2+NegativeProvidence HospitalLaboratory - UrinalysisOrdered By: London Dockery on 72-59-1353Lylbxfq casts LM Ql (Urine sed) 0-8 [LPF]0-8Providence HospitalLeukocytes [#/volume] corrected for nucleated erythrocytes in Blood by Automated counOrdered By: London Dockery on 54-21-8266VJC corrected for nucl RBC Auto (Bld) [#/Vol]11.7 10*3/uL3.8-11.6 Providence HospitalLymphocytes Auto (Bld) [#/Vol]Ordered By: London Dockery on 07-37-8685Rwhcxmusgem (Bld) [#/Vol]0.7 10*3/uL1.00-4.8Providence HospitalLymphocytes/100 WBC Auto (Bld)Ordered By: London Dockery on 77-31-8871Aixedctrohu/100 WBC (Bld)5.6 %.[facility] GlenbeighH Auto (RBC) [Entitic mass]Ordered By: London Dockery on 38-98-3013AKR (RBC) [Entitic mass]30.3 pg24.7-34.3FLakeHealth Beachwood Medical CenterMCHC Auto (RBC) [Mass/Vol]Ordered By: London Dockery on 82-02-1091EQQF (RBC) [Mass/Vol]33.7 g/dL 32.0-35.0Providence HospitalMCV Auto (RBC) [Entitic vol]Ordered By: London Dockery on 12-08-0468YKB (RBC) [Entitic vol]90.0 eW04-465XmgbjntegProvidence HospitalMonocyte distribution width [Entitic volume] in Blood by AutomatedOrdered By: London Dockery on 01-83-6282Xwjgydjt distribution width Auto (Bld) [Entitic vol]16.78 %0.00-20.00Providence HospitalMonocytes Auto (Bld) [#/Vol]Ordered By: London Dockery on 38-27-3766Ikxnibntb (Bld) [#/Vol] 0.7 10*3/uL0.0-0.8Providence HospitalMonocytes/100 WBC Auto (Bld) Ordered By: London Dockery on 90-82-3786Trdqfksnc/100 WBC (Bld)6.3 %.Providence HospitalNeutrophils Auto (Bld) [#/Vol]Ordered By: London Dockery on 31-28-9220Itvnisweich (Bld) [#/Vol]10.2 10*3/uL1.8-7.7FLakeHealth Beachwood Medical CenterNeutrophils/100 WBC Auto (Bld)Ordered By: London Dockery on 55-59-8415Unqumtoosbs/100 WBC (Bld)87.4 %.[facility] Nitrite Test strip Ql (U)Ordered By: London Dockery on 99-88-8980Pdwizsk Ql (U) NegativeNegativeProvidence HospitalNo Panel InformationOrdered By: London Dockery on 53-82-8738Hgdwvjbje GFR (CKD-EPI)> 60.0 mL/MinProvidence HospitalPharmacy Creatinine Clearance (Chem86.59Providence HospitalNucleated erythrocytes [Presence] in Blood by Automated countOrdered By: London Dockery on 21-24-7157Gpddvglwx RBC Auto Ql (Bld)0.1 /100{WBC}0-0.5FLakeHealth Beachwood Medical CenterPlatelet mean volume Auto (Bld) [Entitic vol]Ordered By: London Dockery on 98-36-2629Vybypzoe mean volume (Bld) [Entitic vol]7.8 fL6.3-10.7FLakeHealth Beachwood Medical CenterPlatelets Auto (Bld) [#/Vol]Ordered By: London Dockery on 70-41-8623Vhlgzqzps (Bld) [#/Vol]272 10*3/uL 150-450Providence HospitalPotassium [Moles/volume] in Serum or PlasmaOrdered By: London Dockery on 47-52-2483Ywnddowup [Moles/Vol]4.1 mmol/L 3.5-5.1FLakeHealth Beachwood Medical CenterProtein Auto test strip (U) [Mass/Vol] Ordered By: London Dockery on 31-61-2578Vaagpia (U) [Mass/Vol]NegativeNegative Providence HospitalProtein [Mass/volume] in Serum or PlasmaOrdered By: London Dockery on 15-58-3243Ztjaqhi [Mass/Vol]7.5 g/dL6.4-8.9Providence HospitalRBC Auto (Bld) [#/Vol]Ordered By: London Dockery on 56-99-0073MKI (Bld) [#/Vol]4.45 10*6/uL3.60-5.00[facility] Memorial Hospitalerum or plasma albumin/globulin mass ratioOrdered By: London Dockery on 25-48-7409Pxakaih/Globulin [Mass ratio]1.5 {ratio}[facility] Hospitalerum or plasma anion gap determinationOrdered By: London Dockery on 22-78-6255Pznna gap [Moles/Vol]10.8 mmol/L6.0-15.0[facility] Hospitalodium [Moles/volume] in Serum or PlasmaOrdered By: London Dockery on 06-08-5739Uxjipt [Moles/Vol]127 mmol/T648-866VvvetjzflProvidence Hospital Specific gravity Auto test strip (U) [Rel density]Ordered By: London Dockery on 20-21-2380Uzpvakwl gravity (U) [Rel density]1.0401.001-1.030[facility] Hospitalquamous epithelial cells detection in urine sediment by light microscopyOrdered By: London Dockery on 43-42-1412Aryukdxbrj cells.squamous LM Ql (Urine sed)3-4 [HPF]0-2FLakeHealth Beachwood Medical CenterUrea nitrogen [Mass/volume] in Serum or PlasmaOrdered By: London Dockery on 18-87-8682Vakl nitrogen [Mass/Vol]11 mg/dL7-25Providence HospitalUrine bacteria detection by automated methodOrdered By: London Dockery on 15-55-7176Llmjmmxy Auto Ql (U)None seenNone SeenProvidence HospitalUrine clarity by refractometry automatedOrdered By: London Dockery on 83-91-8396Nqiernx Refractometry automated (U)ClearCleDayton VA Medical CenterUrine glucose measurement by automated test strip (mass/volume)Ordered By: London Dockery on 77-57-7138Oaumnpo Auto test strip (U) [Mass/Vol]Normal mg/dLPremier Health Miami Valley Hospital SouthUrine hemoglobin detection by automated test stripOrdered By: London Dockery on 44-28-0242Lccnzhgbpe Auto test strip Ql (U) TraceNegOur Lady of Mercy Hospital - AndersonUrine leukocyte esterase detection by automated test stripOrdered By: London Dockery on 06-68-0040Pbwhxeztv esterase Auto test strip Ql (U)NegativeNegOur Lady of Mercy Hospital - Anderson Urobilinogen Auto test strip (U) [Mass/Vol]Ordered By: London Dockery on 66-40-7019Rwyoruwjumyb (U) [Mass/Vol]Normal mg/dLNoMemorial Health SystemWBC Auto (Bld) [#/Vol]Ordered By: London Dockery on 90-54-4879KSE (Bld) [#/Vol]11.7 10*3/uL3.8-11.6FLakeHealth Beachwood Medical CenterpH Auto test strip (U)Ordered By: London Dockery on 96-40-9715gR (U)7.0 [pH]5.0-9.0Providence HospitalBasophils Auto (Bld) [#/Vol]Ordered By: David Mayfield on 62-74-9494Icmlqkwdn (Bld) [#/Vol]0.0 10*3/uL0.0-0.2FLakeHealth Beachwood Medical CenterBasophils/100 WBC Auto (Bld)Ordered By: Max Pavlock on 12-03-2022 Basophils/100 WBC (Bld)0.8 %.Providence HospitalC reactive protein [Mass/volume] in Serum or PlasmaOrdered By: Max Pavlock on 03-72-0562NBF [Mass/Vol]0.7 mg/dL0.0-1.0Providence HospitalEosinophils Auto (Bld) [#/Vol]Ordered By: Max Pavlock on 73-29-8525Secnxyclvmu (Bld) [#/Vol]0.2 10*3/uL0.0-0.45Providence HospitalEosinophils/100 WBC Auto (Bld) Ordered By: Max Pavlock on 53-73-1292Tcdykrcycaw/100 WBC (Bld)3.0 %.Providence HospitalErythrocyte distribution width Auto (RBC) [Ratio]Ordered By: Max Pavlock on 93-55-5423Oonatitqdvn distribution width (RBC) [Ratio]13.2 % 11.9-15.3FLakeHealth Beachwood Medical CenterErythrocyte sedimentation rate by Photometric methodOrdered By: Aki Tyson on 32-99-0913UUR Photometric method (Bld) [Velocity]12 mm/hr0-29Providence HospitalHematocrit Auto (Bld) [Volume fraction]Ordered By: Max Pavlock on 48-75-5229Kcfanuupbl (Bld) [Volume fraction]45.4 %34.0-46.4FLakeHealth Beachwood Medical CenterHemoglobin [Mass/volume] in BloodOrdered By: Max Pavlock on 20-08-4610Aqcimdepvs (Bld) [Mass/Vol]14.9 g/dL11.8-15.4FLakeHealth Beachwood Medical CenterLaboratory - Chemistry and Chemistry - challengeOrdered By: David Mayfield on 12-03-2022 Cobalamin (Vitamin B12) [Mass/Vol]402 pg/tL978-896JjeewguhhProvidence HospitalMagnesium [Mass/Vol]2.1 mg/dL1.6-2.6FLakeHealth Beachwood Medical Center Leukocytes [#/volume] corrected for nucleated erythrocytes in Blood by Automated counOrdered By: David Mayfield on 04-34-1093ECE corrected for nucl RBC Auto (Bld) [#/Vol]5.3 10*3/uL3.8-11.6FLakeHealth Beachwood Medical CenterLymphocytes Auto (Bld) [#/Vol]Ordered By: David Mayfield on 90-21-3445Jxtbduffzbw (Bld) [#/Vol]1.5 10*3/uL1.00-4.8Providence HospitalLymphocytes/100 WBC Auto (Bld) Ordered By: David Mayfield on 64-33-4178Gmybtcuwtlu/100 WBC (Bld)27.6 %.Providence HospitalMCH Auto (RBC) [Entitic mass]Ordered By: David Mayfiedl on 25-95-7382XAB (RBC) [Entitic mass]29.9 pg24.7-34.3FLakeHealth Beachwood Medical CenterMCHC Auto (RBC) [Mass/Vol]Ordered By: David Mayfield on 00-20-4044GYWK (RBC) [Mass/Vol]32.8 g/dL32.0-35.0Providence HospitalMCV Auto (RBC) [Entitic vol]Ordered By: David Mayfield on 50-03-3549PLE (RBC) [Entitic vol]91.1 fL 80-100Providence HospitalMonocytes Auto (Bld) [#/Vol]Ordered By: David Quesadalock on 74-00-1130Cbirgvxua (Bld) [#/Vol]0.3 10*3/uL0.0-0.8Providence HospitalMonocytes/100 WBC Auto (Bld)Ordered By: David Mayfield on 97-58-6330Nozhdpbzz/100 WBC (Bld)6.0 %.[facility] Neutrophils Auto (Bld) [#/Vol]Ordered By: David Mayfield on 69-04-6880Qivkncrdgdg (Bld) [#/Vol]3.3 10*3/uL1.8-7.7FLakeHealth Beachwood Medical CenterNeutrophils/100 WBC Auto (Bld)Ordered By: David Mayfield on 88-66-0817Xtxbmznmhnw/100 WBC (Bld)62.6 %.Providence HospitalNo Panel InformationOrdered By: David Mayfield on 73-25-094305485344-Hyehann Vitamin D Total31.0 ng/zS62-119ExsnwojgvProvidence HospitalComment on above:VITAMIN D STATUS 25(OH)VITAMIN D RANGE (ng/mL) Deficient <20 Insufficient 20 to <44Ekxwatxtkc24 to 100Reference: Saloni MF,Alicia FLOWER, Isaac MCGOWAN, et al. Evaluation,treatment, and prevention of vitamin D deficiency; an Endocrine Society clinical practice guideline. JCEM. 2010; 96(7):1911-30.Nucleated erythrocytes [Presence] in Blood by Automated countOrdered By: David Mayfield on 43-06-4417Faeslzczp RBC Auto Ql (Bld)0.2 /100{WBC}0-0.5FLakeHealth Beachwood Medical CenterPlatelet mean volume Auto (Bld) [Entitic vol]Ordered By: David Mayfield on 64-65-9500Jdjkumfj mean volume (Bld) [Entitic vol]8.4 fL6.3-10.7FLakeHealth Beachwood Medical CenterPlatelets Auto (Bld) [#/Vol]Ordered By: David Mayfield on 18-76-6137Isqbfvukq (Bld) [#/Vol]312 10*3/uL 150-450Providence HospitalRBC Auto (Bld) [#/Vol]Ordered By: David Mayfield on 62-85-4554SEP (Bld) [#/Vol]4.98 10*6/uL3.60-5.00Providence HospitalWBC Auto (Bld) [#/Vol]Ordered By: David Mayfield on 35-26-8722FPU (Bld) [#/Vol]5.3 10*3/uL3.8-11.6FLakeHealth Beachwood Medical CenterXR Foot Complete Right*on 03-38-0638HT Foot Complete Right*CLINICAL HISTORY: Pain after injury one week ago. COMPARISON: 12/05/2020. TECHNIQUE: AP, lateral and oblique radiographs of the right foot were obtained. FINDINGS: Mild degenerative changes and bunion formation is noted of the right first MTP, and mild enthesopathy of the Achilles tendon insertion are again noted. There is no fracture, dislocation, other significant degenerative changes, worrisome bone destruction, or other findings of concern identified. IMPRESSION: NO DISPLACED FRACTURE OR POSTTRAUMATIC COMPLICATION IDENTIFIED. Report reported and signed by Jean Pierre Thomas on 09/10/2022 1616NormalNorthu hu kam memorial hospitaln Day Kimball HospitalMG MAMM SCREEN 3D LAMONT CADon 98-97-8725EM MAMM SCREEN 3D LAMONT CADPatient: PAO LION Exam Date: 08/20/2022 : 1970 Gender:F Ordering : DR TU FLORES Admission #: [id number] Family : Order #: [id number] CLICK HERE TO VIEW EXAM RADIOLOGY REPORT PROCEDURE: MAMMOGRAM SCREENING 3D BILATERAL CAD COMPARISON: MG MAMM SCREEN LAMONT W CAD, 08/16/2020. MG MAMM SCREEN 3D LAMONT CAD, 08/17/2021. INDICATIONS: Screening mammography Calculator Name NCI Breast Cancer Risk Assessment Tool 5 Year Breast Cancer Risk 0.60% Lifetime Breast Cancer Risk 6.00% Personal Breast Cancer No Personal Ovarian Cancer No Treatments None Family Cancers Son with hodgkins cancer at age 14; Father with throat cancer at age 72. LOCATION: [facility] BREAST COMPOSITION: Heterogeneously dense,which may obscure small masses. FINDINGS: DIAGNOSTIC CATEGORY 2--BENIGN FINDING. NO CHANGE FROM COMPARISON. This exam includes additional mammographic views for implant evaluation and shows no visible implant abnormality. RIGHT BREAST: No significant suspicious finding. LEFT BREAST: No significant suspicious finding. RECOMMENDATIONS: ROUTINE MAMMOGRAM AND CLINICAL EVALUATION IN 12 MONTHS. PLEASE NOTE: A NORMAL MAMMOGRAM DOES NOT EXCLUDE THE POSSIBILITY OF BREAST CANCER. A CLINICALLY SUSPICIOUS PALPABLE LUMP SHOULD BE BIOPSIED. Dictated by: Sebastian Shin MD on 08/20/2022 at 14:43 Approved by: Sebastian Shin MD on 08/20/2022 at 14:44[facility] Comprehensive metabolic 2000 panelon 59-23-9399Jlchasp [Mass/Vol]4.9 g/dL3.9 - 4.9 g/dLLos Ebanos ClinicALP [Catalytic activity/Vol]46 U/L34 - 123 U/LCleveland ClinicALT [Catalytic activity/Vol]16 U/L7 - 38 U/LCleveland ClinicAnion gap [Moles/Vol]8 mmol/LLow9 - 18 mmol/LCleveland ClinicAST [Catalytic activity/Vol] 17 U/L13 - 35 U/LCleveland ClinicBilirubin [Mass/Vol]0.4 mg/dL0.2 - 1.3 mg/dL [facility] ClinicCalcium [Mass/Vol]9.8 mg/dL8.5 - 10.2 mg/dLMarietta Osteopathic Clinic Chloride [Moles/Vol]101 mmol/L97 - 105 mmol/LCleveland ClinicCO2 [Moles/Vol]28 mmol/L22 - 30 mmol/LCleveland ClinicCreatinine [Mass/Vol]0.79 mg/dL0.58 - 0.96 mg/dLMarietta Osteopathic ClinicEstimated Glomerular Filtration Rate92 mL/min/1.73m>=60 mL/min/1.73mCleveland ClinicGlucose [Mass/Vol]87 mg/dL74 - 99 mg/dLMarietta Osteopathic ClinicPotassium [Moles/Vol]4.2 mmol/L3.7 - 5.1 mmol/LCleveland ClinicProtein [Mass/Vol]7.5 g/dL6.3 - 8.0 g/dLLos Ebanos ClinicSodium [Moles/Vol]137 mmol/L136 - 144 mmol/LCleveland ClinicUrea nitrogen [Mass/Vol]12 mg/dL7 - 21 mg/dL [facility]opathic ClinicCT TEMP BONES WO IVCONon 36-77-2296Raroxdzhi ClinicALTon 39-65-6684HDI [Catalytic activity/Vol]10 U/LNormal5-33Mi[facility] Hospitalcy [facility] Comment on above:Performed By: #### VD25 #### [address] [place] [address] Bottom Steep Tender: Mic Noland MD #### K, TSH, FT4, LIPR, ALT #### [facility] [address] [place], [place] [address] Bottom Steep Tender: Pollo Neal DOALT [Catalytic activity/Vol]10 U/L5 - 33 U/L [place], KYK (Potassium)on 11-91-3367Oekbbqzrp [Moles/Vol]4.4 mmol/L Normal3.7-5.3[facility] South CampusComment on above:Performed By: #### VD25 #### [facility] SpaceFace [address] [place], [place] [id number] Bottom Steep Tender: Mic Noland MD #### K, TSH, FT4, LIPR, ALT #### [facility] [address] [place] [address] Bottom Steep Tender: Pollo Neal DOLipid Panelon 82-77-2298Arjljdilulq [Mass/Vol]233 mg/dLHigh<200[place], KYComment on above: Cholesterol Guidelines: <200 Desirable 200-240 Borderline >240 Undesirable Cholesterol in HDL [Mass/Vol]62 mg/dL>40[place], KYComment on above: HDL Guidelines: <40 Undesirable 40-59 Borderline >59 Desirable Cholesterol in LDL [Mass/Vol]154 mg/dLHigh0 - 130 mg/dLAr[place], [place] Comment on above: LDL Guidelines: <100 Desirable 100-129 Near to/above Desirable 130-159 Borderline >159 Undesirable Direct (measured) LDL and calculated LDL are not interchangeable tests. Cholesterol in VLDL [Mass/Vol]NOT REPORTED1 - 30 mg/dLAr[place], [place] Cholesterol.total/Cholesterol in HDL [Mass ratio]3.8 {ratio}<5[place], KYInterpretation and review of laboratory resultsAbnormalArchie, [place] Triglyceride [Mass/Vol]85 mg/dL<150[place], KYComment on above: Triglyceride Guidelines: <150 Desirable 150-199 Borderline 200-499 High >499 Very high Based on AHA Guidelines for fasting triglyceride, August 2012. Lipid Profileon 61-62-4431Lkzhpzbbler [Mass/Vol]233 mg/dLHigh<200S[facility] Memorial HospitalComment on above:Result Comment: Cholesterol Guidelines: <200 Desirable 200-240 Borderline >240 UndesirablePerformed By: #### VD25 #### [facility] SpaceFace [facility] [place] [address] Bottom Steep Tender: Mic Noland MD #### K, TSH, FT4, LIPR, ALT #### [facility] [address] [place] [address] Bottom Steep Tender: Pollo Neal, SHADIAholesterol in HDL [Mass/Vol]62 mg/dLNormal >40[facility] on above:Result Comment: HDL Guidelines: <40 Undesirable 40-59 Borderline >59 DesirablePerformed By: #### VD25 #### [address] [address] Bottom Steep Tender: Mic Noland MD #### K, TSH, FT4, LIPR, ALT #### [facility] [address] [place] [address] Bottom Steep Tender: Pollo Neal DOCholesterol in LDL [Mass/Vol]154 mg/dLHigh 0-130[facility] on above:Result Comment: LDL Guidelines: <100 Desirable 100-129 Near to/above Desirable 130-159 Borderline >159 Undesirable Direct (measured) LDL and calculated LDL are not interchangeable tests.Performed By: #### VD25 #### [address] [address] Bottom Steep Tender: Mic Noland MD #### K, TSH, FT4, LIPR, ALT #### [facility] [address] [place] [address] Bottom Steep Tender: Pollo Neal DOCholesterol.total/Cholesterol in HDL [Mass ratio]3.8 {ratio}Normal<5[facility] on above:Performed By: #### VD25 #### [address] [address] Bottom Steep Tender: Mic Noland MD #### K, TSH, FT4, LIPR, ALT #### [facility] [address] [place] [address] Bottom Steep Tender: Pollo Neal DOTriglyceride [Mass/Vol]85 mg/dLNormal<150 [facility] HospitalComc.[facility] on above:Result Comment: Triglyceride Guidelines: <150 Desirable 150-199 Borderline 200-499 High >499 Very high Based on AHA Guidelines for fasting triglyceride, August 2012.Performed By: #### VD25 #### [facility] [address] [place] [address] Bottom Steep Tender: Mic Noland MD #### K, TSH, FT4, LIPR, ALT #### [facility] [address] [place] [address] Bottom Steep Tender: Pollo Neal DOCholesterol in VLDL [Mass/Vol]NOT REPORTED Normal12-17[facility] HospitalComc.[facility]. [facility] on above:Performed By: #### VD25 #### [facility] [address] [place] [address] Bottom Steep Tender: Mic Noland MD #### K, TSH, FT4, LIPR, ALT #### [facility] [address] [place] [address] Bottom Steep Tender: Pollo Neal DOPotassiumon 09-69-8422Lvmjfgavt [Moles/Vol] 4.4 mmol/L3.7 - 5.3 mmol/LMCity Hospital, KYT4, Freeon 11-28-5934Edhkaesoe, Free1.39 ng/dL0.93 - 1.7 ng/dLKettering Health Springfield, KYTSH without Reflexon 45-60-6435DGQ Qn1.52 m[IU]/[facility], KYThyroid Stim. Horm.on 09-14-2019 TSH Qn1.52 m[IU]/LNormal0.30-5.00[facility] on above: Performed By: #### VD25 #### [facility] [address] [place] [address] Bottom Steep Tender: Mic Noland MD #### K, TSH, FT4, LIPR, ALT #### [facility] [address] [place] [address] Bottom Steep Tender: Pollo Neal DOThyroxine, Freeon 93-68-4791Amqiltqke, Free 1.39 ng/dLNormal0.93-1.70[facility] on above:Performed By: #### VD25 #### [address] [place] [address] Bottom Steep Tender: Mic Noland MD #### K, TSH, FT4, LIPR, ALT #### [facility] [address] [place] [address] Bottom Steep Tender: Pollo Neal DOVitamin D 25 Hydroxyon 45-29-1376Hbn D, 25-Fiuvulq36.4 ng/mL30 - 100 ng/mLBelchertown State School for the Feeble-Minded on above: Reference Range: Vitamin D status Range Deficiency <20 ng/mL Mild Deficiency 20-30 ng/mL Sufficiency 30-100 ng/mL Toxicity >100 ng/mL Vitamin D 25 OHon 23-54-6083Rxrshjl D 25 OH45.4 ng/hUWivhxc21.0-100.0[facility] on above:Result Comment: Reference Range: Vitamin D status Range Deficiency <20 ng/mL Mild Deficiency 20-30 ng/mL Sufficiency 30-100 ng/mL Toxicity >100 ng/mLPerformed By: #### VD25 #### [address] [place] [address] Bottom Steep Tender: Mic Noland MD #### K, TSH, FT4, LIPR, ALT #### [facility] [address] [place] [address] Bottom Steep Tender: Pollo Neal DOBASIC METABOLIC PANELon 62-52-3719Cnkejqt3.3 mg/dLNormal8.6-10.3The [facility] HospitalComment on above: Performed By: #### [id number] ####[facility] [place] [address], KXYOcimpgrq010 mmol/LJpszwi95-941Emi [facility] Memorial HospitalComment on above:Performed By: #### 62569 ####[facility] [place] [address], UVLQG301 mmol/QPrfsga47-88 The [facility] Memorial HospitalComment on above:Performed By: #### 90072 ####[facility] [place] [address], [place] Creatinine0.78 mg/dLNormal0.60-1.20[facility] Comment on above:Performed By: #### 53873 ####[facility] [place] [address], USAeGFR (black)mL/min/{1.73_m2}Normal >60The [facility] Memorial HospitalComment on above:Performed By: #### 16591 ####[facility] [place] [address], USAeGFR (non-black)mL/min/{1.73_m2}Normal>60The [facility] Memorial HospitalComment on above:Performed By: #### 84848 ####[facility] [place] [address], USAGlucose mass conc86 mg/dL Qsahrx14-542Qkm [facility] HospitalComment on above:Performed By: #### 38843 ####[facility] [place] [address], USAPotassium molar conc3.7 mmol/LNormal3.5-5.1The [facility] Memorial HospitalComment on above:Performed By: #### 77773 ####[place] [address] [facility] [place] [address], AJXRofeny352 mmol/L Umwqom107-438Gcj [facility] HospitalComment on above:Performed By: #### 47036 ####[address] [place] [address], [facility] CAN[facility]ER CENTERUrea aexdrlwx07 mg/dLNormal7-25The [facility] HospitalComment on above:Performed By: #### 90721 ####[address] [place] [address], UN[facility] CANCER CENTERCBC COMPLETE BLOOD COUNTon 73-01-5351Zcccmelzzmn distribution width Auto Ratio (RBC)15.6 %High11.5-15.0The [facility] HospitalComment on above:Performed By: #### 95714 ####[address] [place] [address], [facility] Erythrocytes (RBC)4.38 10*6/uLNormal3.80-5.00The [facility] HospitalComment on above:Performed By: #### [address] ####[place] [address], [facility] CAN[facility]ER CENTERErythrocytes (RBC)0 %Normal0-0The [facility] HospitalComment on above:Performed By: #### 82153 ####[address] [place] [address], [facility] Hematocrit (HCT)37.8 %Evyerv47.0-45.0[facility] Comment on above:Performed By: #### [address] ####[place] [address], [facility] CAN[facility]ER CENTERHemoglobin mass conc (Bld)11.8 g/dLLow12.0-15.0The [facility] Memorial HospitalComment on above: Performed By: #### 20062 ####[address] [place] [address], XBWKSQ06.9 pgLow27.0-33.0The [facility] HospitalComment on above:Performed By: #### 78235 ####[facility] [facility] [place] [address], [facility] CAN[facility]ER CENTERMCHC mass conc (RBC)31.2 g/dLLow 32.0-35.0The [facility] HospitalComment on above:Performed By: #### 81946 ####[address] [place] [address], BLFHDG84.3 vFBdjqoe72.0-98.0The [facility] Comment on above:Performed By: #### 76849 ####[address] [place] [address], [facility] CANCER CENTERPLAT AWL587 10*3/iMKutv169-578Omk [facility] HospitalComment on above:Performed By: #### [address] ####[place] [address], [facility] WBC (Leukocytes)6.67 10*3/uLNormal4.00-10.60The [facility] HospitalComment on above:Performed By: #### 332[address] ####[place] [address], [facility] CANCER CENTERCardiovascular Lab Reporton 92-57-5309Iluyefmpxylxoo Lab ReportUnSamaritan Hospital Patient [facility] MR #: [id number] Physician: Ousmane of Nicole DotsonMedicine Service Date: 04/15/2018Division of Birthdate: 1970Cardiology Room #: CCAdult CardiovascularServicesTerry V[place] [address]Phone Fax Cardiovascular Laboratory ReportINDICATIONS: This is apatient who sees Dr. Juan Luis Huerta in the [facility]. She has been complaining of tachycardia symptoms and she has had a2 Holter monitors that I saw that appeared to show sinus tachycardia. Shetells me that she went to the emergency department one time and was givenadenosine, who was uncertain of the response and I have no records that.She has Coos's disease. She said she had one time was on a betablocker, which improved her symptoms. She does not recall why it wasstopped. She saw Dr. Huerta and was recommended the EP study with possibleablation. Baseline EKG does not show pre-excitation. Echocardiogram wasnormal.Consent was obtained. She was given 125 mg of Solu-Medrol IV due to herAddison's disease. She was given conscious sedation with Dilaudid andfentanyl.Once she was adequatelysedated using local anesthesia with lidocaine andthe Site Rite, percutaneous access was achieved bilaterally to the femoralveins. Two access sheaths of 7 and 8 in the right femoral vein and 2, 6,and 1, 7 site in the left common femoral vein.Catheters were placed in the high right atrium, HIS position ,coronarysinus and right ventricular apex positions. FL are QRS durations were 129and 87. QT and QTc were normal. AH and HV were 53 and 45 respectively.Pacing was done, which revealed no evidence of accessory pathwayconduction. Para-Hisian pacing showed only AV harrison response. Atrial ERPand AV harrison ERP were performed. Atrial ERP at 600 was 250 milliseconds atWenckebach was at 310 milliseconds.AV harrison ERP at 400 milliseconds kif458 milliseconds. Pacing in the atrium baseline did not reveal anyevidence of AV crossover the Freedom Chelsea sign was not present. Thereappeared to be occasional jumpon atrial pacing, but this was notconsistent and there was never more than possible 1 echo beat. This was at400 [address]Ventricular pacing was also performed. VA Wenckebach was at 440millisecond and conduction was central and decremental.Graded isoproterenol infusion was then performed starting at 1 mcg going upto 5 mcg minute dosing and serial pacing was performed at each dose. Noevidence of crossover was seen. No echo beats were produced and nosustained tachycardia could be generated. Isuprel was turned off andsimilarly pacing was done in washout and again nothing significant wasfound.At that point, sheaths and wires were pulled. Pressure was held andhemostasis was achieved.There were no apparent complications.ASSESSMENT:1. Normal underlying conduction.2. 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 However, no crossover could be obtained. No sustained tachycardia could be generated with or without substantial doses of isoproterenol and only rare single echo beats were found.3. 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 Given the fact that there was no documented tachycardia and the findings of the EP study, no ablation was performed.5. Conscious sedation.6. Fluoroscopy. A total of 8.2 minutes of fluoroscopy were used.7. Comprehensive electrophysiology study with coronary sinus catheter.8. Programmed stimulation after isoproterenol.I spoke to the patient's currency machine operator, . He felt single doseof solumedrol was sufficient and that re-instituting B Tyree was not aproblem She had been on betablocker in the past and did well on it. Itis possible that she is having simply sinus tachycardia or inappropriatesinus tachycardia causing her episodes. She will follow up with us in [facility].Electronically Signed by:Tiffany Dotson M.D. 04/16/2018 08:04 A Tiffany Dotson M.D.Date Dict: 04/15/2018/02:00 P/Tiffany Dotson M.D.Date Trans: 04/15/2018 03:06 P/crisoDN_JN:[id number]: Juan Luis Huerta M.D. [address] [place] [address] David Mayfield D.O. [address] [facility] [address] NormalThe Clinton Memorial HospitalCBC AND DIFFERENTIALon 05-29-2017% AUTOMATED IMMATURE GRAN0.3 %Normal0.0 - 0.9UH [facility] Memorial HospitalComment on above:Result Comment: Percent differential counts (%) should be interpreted in the context of the absolute cell counts (cells/L).Performed By: #### CBCDF ####[facility] [facility], [phone]% TXAWZCNFKY08.8 %Exfkph82.0 - 80.0[facility] HospitalComment on above: Performed By: #### CBCDF ####[facility] [facility], [phone]/100 WBC Auto (Bld)0.6 %Normal0.0 - 2.0[facility] HospitalComment on above:Performed By: #### CBCDF ####[facility] [place] [address], [phone]/100 WBC Auto (Bld)0.04 x10E9/LNormal0.00 - 0.10[facility] HospitalComment on above: Performed By: #### CBCDF ####[facility] [place] [address], [phone] 10*3/uLNormal0.00 - 0.70[facility] HospitalComment on above:Performed By: #### CBCDF ####[facility] [facility], [phone]/100 leukocytes0.9 %Normal 0.0 - 6.0[facility] HospitalComment on above:Performed By: #### CBCDF ####[facility] [facility], [phone] distribution width Auto Ratio (RBC)14.1 %Qawpvy47.5 - [address] HospitalComment on above:Performed By: #### CBCDF ####[facility] [place] [address],[facility], [phone] (RBC)4.98 x10E12/LNormal 4.00 - 5.20[facility] HospitalComment on above:Performed By: #### CBCDF ####[facility] [facility], [phone] Hematocrit (HCT)43.7 %Kekssi19.0 - 46.0[facility] HospitalComment on above: Performed By: #### CBCDF ####[facility] [facility], [phone] mass conc (Bld)13.9 g/kUFdnwfi28.0 - 16.0[facility] HospitalComment on above:Performed By: #### CBCDF ####[facility] [facility], [phone] 10*3/uLNormal1.20 - 4.80[facility] HospitalComment on above:Performed By: #### CBCDF ####[facility] [facility], [phone]/100 .3 %Wcspan70.0 - 44.0[facility] HospitalComment on above:Performed By: #### CBCDF ####[facility] [facility], [phone] mass conc (RBC)31.8 g/dLLow32.0 - 36.0[facility] HospitalComment on above:Performed By: #### CBCDF ####[facility] [facility], [phone] mUKamsrs32 - 100[facility] HospitalComment on above: Performed By: #### CBCDF ####[facility] [facility], [phone] 10*3/uLNormal0.10 - 1.00[facility] HospitalComment on above:Performed By: #### CBCDF ####[facility] [facility], [phone]/100 leukocytes4.1 %Normal 2.0 - 10.0[facility] HospitalComment on above:Performed By: #### CBCDF ####[facility] [facility], [phone] Neutrophils5.05 10*3/uLNormal1.20 - 7.70[facility] HospitalComment on above: Performed By: #### CBCDF ####[facility] [facility], [phone] 10*3/dOZazh846 - 450[facility] Comment on above:Performed By: #### CBCDF ####[facility] [facility], [phone] (Leukocytes)6.8 10*3/uLNormal4.4 - 11.3[facility] HospitalComment on above:Performed By: #### CBCDF ####[facility] [facility], [phone] COMPREHENSIVE PANELon 78-46-4684Mbkthho aminotransferase (ALT)34 U/LNormal7 - [address] [facility] HospitalComment on above:Result Comment: Patients treated with Sulfasalazine may generate falsely decreased results for ALT.Performed By: #### CMP ####[facility] [facility], [phone] Albumin5.2 g/dLHigh3.4 - 5.0[facility] HospitalComment on above:Performed By: #### CMP ####[facility] [facility], [phone] phosphatase (ALP)82 U/QQgtltk20 - 110[facility] HospitalComment on above:Performed By: #### CMP ####[facility] [facility], [phone] gap16 mmol/VSulpll99 - 20[facility] HospitalComment on above:Performed By: #### CMP ####[facility] [facility], [phone] aminotransferase (AST)25 U/LNormal9 - 39[facility] HospitalComment on above: Performed By: #### CMP ####[facility] [facility], [phone] (HCO3)26 mmol/ZDbnvxq03 - 32[facility] HospitalComment on above:Performed By: #### CMP ####[facility] [facility], [phone] (total)0.4 mg/dLNormal0.0 - 1.2[facility] HospitalComment on above:Performed By: #### CMP ####[facility] [facility], [phone] mg/dL High8.6 - 10.3[facility] HospitalComment on above:Performed By: #### CMP ####[facility] [facility], [phone] Xmvqlwfw607 mmol/EJkyrbm22 - 107[facility] HospitalComment on above: Performed By: #### CMP ####[facility] [facility], [phone] mg/dLNormal0.50 - 1.05[facility] Comment on above:Performed By: #### CMP ####[facility] [facility], [phone] (non-black)mL/min/{1.73_m2}Normal>60[facility] HospitalComment on above:Performed By: #### CMP ####[facility] [facility], [phone] Comment: CALCULATIONS OF ESTIMATED GFR ARE PERFORMED USING THE MDRD STUDY EQUATION FOR THE IDMS-TRACEABLE CREATININE METHODS. CLIN CHEM 2007;53:766-72Glucose mass conc 103 mg/sAWabl52 - 99[facility] HospitalComment on above:Performed By: #### CMP ####[facility] [facility], [phone] Potassium molar conc4.4 mmol/LNormal3.5 - 5.3[facility] HospitalComment on above:Performed By: #### CMP ####[facility] [facility], [phone] g/dLHigh6.4 - 8.2[facility] HospitalComment on above:Performed By: #### CMP ####[facility] [facility], [phone] mmol/HZnmapp843 - 145[facility] HospitalComment on above:Performed By: #### CMP ####[facility] [facility], [phone] gsekxjcm86 mg/dL Normal6 - 23[facility] HospitalComment on above:Performed By: #### CMP ####[facility] [facility], [phone] ABDOMEN AND PELVIS WITH CONTRASTon [id number] ABDOMEN AND PELVIS WITH CONTRAST Name: PAO LION STUDY:CT ABDOMEN AND PELVIS WITH CONTRAST; 05/29/2017 5:56pm INDICATION:Signs/Symptoms: diffuse abdominal pain. hx of colitis. COMPARISON:None. ORDERING CLINICIAN:TASIA BENOIT TECHNIQUE:CT of the abdomen and pelvis from thelung bases through thesymphysis pubis after the uneventful administration of intravenouscontrast (90 mL Optiray 350). No oral contrast. FINDINGS:LOWER CHEST: No acute airspace disease. BONES: No acute skeletal findings. LIVER: Normal. No enlargement or evidence of cirrhosis or fattychange. No mass or other suspect lesion. SPLEEN: Normal. No enlargement, mass or evidence of splenic veinthrombosis.PANCREAS: Normal. No CT evidence of acute or chronic pancreatitis. Noduct dilation. No mass. GALLBLADDER: Normal CT appearance. No dilation, calcified, orgas-containing stones. Other types of gallstones could be occult onCT and detectable only by ultrasound. BILE DUCTS: Normal. No biliary duct dilation. ADRENAL GLANDS: Normal. No nodule or mass. KIDNEYS AND URETERS: Normal. No hydronephrosis on either side. Nomass. Symmetric enhancement. No infarct or CT evidence of acutepyelonephritis. No substantial radiodense stone. Tiny stones andradiolucent stones could be occult on CT. LYMPH NODES: No ad enopathy, intraperitoneal, retroperitoneal, pelvicor otherwise APPENDIX: Normal. Not dilated, thickwalled or in any other wayinflamed in appearance. No inflammatory change about the appendix. COLON:Normal. No sign of acute diverticulitis or other colitis. Noannular constricting mass. SMALL BOWEL: Normal. No small bowel dilation or any other sign ofsmall bowel obstruction. No sign of active inflammatory bowel disease. STOMACH / DUODENUM: Grossly normal by CT which has limitedsensitivity and specificity for the stomach and duodenum. RETROPERITONEUM: Normal. No acute hemorrhage or inflammatorychange.Lymph nodes in a separate dedicated section. OMENTUM, MESENTERY AND PERITONEAL SPACES:Free intraperitoneal air: NegativeFree intraperitoneal fluid: NegativeAbscess: NegativeOther: n/a. (Lymph nodes in a separate dedicated section.) URINARY BLADDER: Normal. No wall thickening, large diverticula,radiodense stone or surrounding inflammatory change. PELVIS: Status post hysterectomy. No suspect adnexal cyst or mass. Nofree fluid or adenopathy. VASCULATURE: No abdominal aortic or iliac artery aneurysm. No highgrade stenosis of the major abdominal aortic branch vessels. Portalvenous system patent. ABDOMINAL WALL:Hernia: Tiny fat containing umbilicalOther: No acute or contributory abnormality. IMPRESSION:NO ACUTE APPENDICITIS, DIVERTICULITIS, OTHER COLITIS OR ANY OTHERACUTE OR CONTRIBUTORYABNORMALITY IN THE ABDOMEN OR PELVIS Electronically signed by: Tammy DUFFYNovant Health Charlotte Orthopaedic HospitalLACTATEon 05-29-2017 Lactate1.4 mmol/LNormal0.4 - 2.0[facility] HospitalComment on above:Result Comment: Venipuncture immediately after or during the administration of Metamizole may lead to falsely low results. Testing should be performed immediately prior to Metamizole dosing.Performed By: #### LACT ####[facility] [facility], [phone] 22-64-7089Kmpomj46 U/LNormal9 - 82[facility] HospitalComment on above:Result Comment: Venipuncture immediately after or during the administration of Metamizole may lead to falsely low results. Testing should be performed immediately prior to Metamizole dosing.Performed By: #### LIPAS ####[facility] [facility], [phone] Vital Signs Date TimeVital SignValuePerforming GuvlbzoapPgkzpsys78-93-1579 14:37-0400 Diastolic blood sowprese02 mm[Hg]Palomo Davalos MD Work Phone: [facility]09-08-2025 14:37-0400Heart rate79 /min Palomo Davalos MD Work Phone: [facility]09-08-2025 14:37-0400Systolic blood mnmcuzms451 mm[Hg]Palomo Davalos MD Work Phone: [facility]07-02-2025 16:16-0400Body ixiuyr348.9 cmAdeng Patel SAP PAYROLL CONSULTANT-LEAD FABRICATOR Work Phone: [facility]07-02-2025 16:16-0400Body mass index (BMI) [Ratio]26.81 kg/h2Sfijkduivcarlos Patel [employer] PA[employer]ROLL CONSULTANT-LEAD FABRICATOR Work Phone: [facility]07-02-2025 16:16-0400Body enongzlcjdp56.39 [degF]Jeff Patel [employer] PAYROLL CONSULTANT-LEAD FABRICATOR Work Phone: [facility]07-02-2025 16:16-0400Body vthesf31.32 kgJeff Patel [employer] PAYROLL CONSULTANT-LEAD FABRICATOR Work Phone: [facility]07-02-2025 16:16-0400Diastolic blood mm[Hg]Jeff Patel [employer] PA[employer]ROLL CONSULTANT-LEAD FABRICATOR Work Phone: [facility]07-02-2025 16:16-0400Heart rate 81 /minAlecarlos Patel SAP PAYROLL CONSULTANT-LEAD FABRICATOR Work Phone: [facility]07-02-2025 16:16-2172KlQ8% (BldA) [Mass fraction]97 %Jeff Patel [employer] PAYROLL CONSULTANT-LEAD FABRICATOR Work Phone: [facility]07-02-2025 16:16-0400Systolic blood sjaoveoc263 mm[Hg]Jeff Patel [employer] PAYROLL CONSULTANT-LEAD FABRICATOR Work Phone: [facility]06-09-2025 16:07-0400Diastolic blood wppawbic55 mm[Hg]Palomo Davalos MD Work Phone: [facility]06-09-2025 16:07-0400Heart rate77 /min Palomo Davalos MD Work Phone: [facility]06-09-2025 16:07-0400Systolic blood avwjvuoo411 mm[Hg]Palomo Davalos MD Work Phone: [facility]06-02-2025 14:43-0400Body mass index (BMI) [Ratio]26.88 kg/p3Laiyaykyucarlos Patel SAP PAYROLL CONSULTANT-LEAD FABRICATOR Work Phone: [facility]06-02-2025 14:43-0400Body ddmnialcfjs68.9 [degF]Jeff Patel SAP PAYROLL CONSULTANT-LEAD FABRICATOR Work Phone: [facility]06-02-2025 14:43-0400Body iehnvm89.5 kgAlecarlos Patel SAP PAYROLL CONSULTANT-LEAD FABRICATOR Work Phone: [facility]06-02-2025 14:43-0400Diastolic blood bbznetuv99 mm[Hg]Jeff Patel [employer] PAYROLL CONSULTANT-LEAD FABRICATOR Work Phone: [facility]06-02-2025 14:43-0400Heart rate 102 /minAlecarlos Patel SAP PAYROLL CONSULTANT-LEAD FABRICATOR Work Phone: [facility]06-02-2025 14:43-2049WlV6% (BldA) [Mass fraction]98 %Jeff Patel SAP PAYROLL CONSULTANT-LEAD FABRICATOR Work Phone: [facility]06-02-2025 14:43-0400Systolic blood iqspnfzp027 mm[Hg]Jeff Patel SAP PAYROLL CONSULTANT-LEAD FABRICATOR Work Phone: [facility]03-26-2025 11:46-0400Body vcjyfe439.94 Britany Patel B[employer]OVER-C Work Phone: [facility]03-26-2025 11:46-0400 Body wpembc41.96 kgJeff Hookss [employer]OVER-C Work Phone: [phone]03-26-2025 11:00-0400 Diastolic blood kqppynnh69 mm[Hg]Jeff Hookss [employer]-C Work Phone: [phone]03-26-2025 11:00-0400 Heart rate75 /minAlecarlos Hookss [employer]OVER-C Work Phone: [phone]03-26-2025 11:00-0400 Systolic blood prbuplrc631 mm[Hg]Jeff Hookss [employer]OVER-C Work Phone: [phone]03-25-2025 11:26-0400 Body .7 Demario Chen MD Work Phone: [facility]03-25-2025 11:26-0400Body mass index (BMI) [Ratio]26.59 kg/c0NoequjhDheeraj Chen MD Work Phone: [facility]03-25-2025 11:26-0400Body .8 kgDheeraj Chne MD Work Phone: [facility]03-25-2025 11:26-0400Diastolic blood rovhfmoh78 mm[Hg]Dheeraj Chen MD Work Phone: [facility]03-25-2025 11:26-0400Heart rate78 /min Dheeraj Chen MD Work Phone: [facility]03-25-2025 11:26-0400Systolic blood gepqcbxz186 mm[Hg]Dheeraj Chen MD Work Phone: [facility]02-26-2025 15:46-0500Body qlrcpo637.7 cmSbrent Castellanos MD Work Phone: [facility]02-26-2025 15:46-0500Body mass index (BMI) [Ratio]24.01 kg/o1CitnxjvDrew Castellanos MD Work Phone: [facility]02-26-2025 15:46-0500Body bqzhhe33.7 kgDrew Castellanos MD Work Phone: [facility]02-26-2025 15:46-0500Diastolic blood zhphpakm51 mm[Hg]Drew Castellanos MD Work Phone: [facility]02-26-2025 15:46-0500Heart rate88 /min Drew Castellanos MD Work Phone: [facility]02-26-2025 15:46-4685FkY6% (BldA) [Mass fraction]100 %Drew Castellanos MD Work Phone: [facility]02-26-2025 15:46-0500Systolic blood dtynzurd509 mm[Hg]Drew Castellanos MD Work Phone: [facility]02-03-2025 14:40-0500Diastolic blood nsnpmeno61 mm[Hg]Palomo Davalos MD Work Phone: [facility]02-03-2025 14:40-0500Heart rate89 /min Palomo Davalos MD Work Phone: [facility]02-03-2025 14:40-0500Systolic blood mm[Hg]Palomo Davalos MD Work Phone: [facility]11-22-2024 10:27-0500Body tnijtk223.9 cmAlexandra Patel SAP PAYROLL CONSULTANT-LEAD FABRICATOR Work Phone: [facility]11-22-2024 10:27-0500Body mass index (BMI) [Ratio]25.52 kg/q6Xctefyedacarlos Patel SAP PAYROLL CONSULTANT-LEAD FABRICATOR Work Phone: [facility]11-22-2024 10:27-0500Body bygszjicxzh58.9 [degF]Jeff Patel SAP PAYROLL CONSULTANT-LEAD FABRICATOR Work Phone: [facility]11-22-2024 10:27-0500Body ykhhbe44.24 kgAlecarlos Patel SAP PAYROLL CONSULTANT-LEAD FABRICATOR Work Phone: [facility]11-22-2024 10:27-0500Diastolic blood dxrxuuvj65 mm[Hg]Jeff Patel SAP PAYROLL CONSULTANT-LEAD FABRICATOR Work Phone: [facility]11-22-2024 10:27-0500Heart rate 94 /minAlecarlos Patel SAP PAYROLL CONSULTANT-LEAD FABRICATOR Work Phone: [facility]11-22-2024 10:27-2576TzH6% (BldA) [Mass fraction]100 %Jeff Patel SAP PAYROLL CONSULTANT-LEAD FABRICATOR Work Phone: [facility]11-22-2024 10:27-0500Systolic blood rmpqupwq921 mm[Hg]Jeff Patel SAP PAYROLL CONSULTANT-LEAD FABRICATOR Work Phone: [facility]11-06-2024 12:41-0500Body mass index (BMI) [Ratio]24.33 kg/q5EjarqcTu Flores MD Work Phone: [place] [phone] 12:41-0500Body emtkzr25.33 kgTu Flores MD [facility]wmng[facility]ux60[facility]52-6737 12:41-0500Diastolic blood zrrnblyh61 mm[Hg]Tu Flores MD Work Phone: [facility] CenterIwyktpajwb86-95-3136 12:41-0500Systolic blood bhhugvyt629 mm[Hg]Tu Flores MD Work Phone: [facility] CenterRwzfuppqyz75-68-8696 10:26-0500Diastolic blood xceyqjfe58 mm[Hg]Palomo Davalos MD Work Phone: [facility]11-04-2024 10:26-0500Heart rate75 /min Palomo Davalos MD Work Phone: [facility]11-04-2024 10:26-0500Systolic blood yaprltcf979 mm[Hg]Palomo Davalos MD Work Phone: [facility]10-03-2024 14:41-0400Body .5 cmCristina Reneeal DO Work Phone: [facility]10-03-2024 14:41-0400Body mass index (BMI) [Ratio]25.35 kg/m2Cristina Harriseval DO Work Phone: [facility]10-03-2024 14:41-0400Body tzzipe17.97 kgCristina Reneeal DO Work Phone: [phone]10-03-2024 14:41-0400Diastolic blood nozpipcx03 mm[Hg]Cristina Reneeal DO Work Phone: [phone]10-03-2024 14:41-0400Heart rate87 /min Cristina Reneeal DO Work Phone: [phone]10-03-2024 14:41-0400Systolic blood axdugicw742 mm[Hg]Cristina Reneeal DO Work Phone: [phone]08-29-2024 15:11-0400Body biwuag316.7 [facility]08-29-2024 15:11-0400Body mass index (BMI) [Ratio] 24.01 kg/m2[facility]08-29-2024 15:11-0400Body .7 kg [facility]08-29-2024 15:11-0400Respiratory rate18 /min[facility]-16-2024 15:25-0400Body mass index (BMI) [Ratio]24.8 kg/m2Cristina Green DO Work Phone: [facility]08-16-2024 15:25-0400Body .61 kgCristina Green DO Work Phone: [place] [address]-16-2024 15:25-0400Diastolic blood oywigwjj78 mm[Hg]Cristina Green DO Work Phone: [facility]08-16-2024 15:25-0400Heart rate98 /min Cristina Green DO Work Phone: [facility]08-16-2024 15:25-0400Systolic blood oevgklkr909 mm[Hg]Cristina Green DO Work Phone: [facility]08-12-2024 16:00-0400Diastolic blood obtxgzal87 mm[Hg]Palomo Davalos MD Work Phone: [facility]08-12-2024 16:00-0400Heart rate92 /min Palomo Davalos MD Work Phone: [place] [address]-12-2024 16:00-0400Systolic blood dkgpybmn159 mm[Hg]Palomo Davalos MD Work Phone: [facility]07-12-2024 10:15-0400Diastolic blood iwwklpoc54 mm[Hg]Ester Cali MD Work Phone: [facility]07-12-2024 10:15-0400Heart rate59 /min Ester Cali MD Work Phone: [facility]07-12-2024 10:15-0400Respiratory rate 17 /minEster Cali MD Work Phone: [facility]07-12-2024 10:15-4599XoI4% (BldA) [Mass fraction]100 %Ester Cali MD Work Phone: [phone]07-12-2024 10:15-0400Systolic blood znmjsxek326 mm[Hg]Ester Cali MD Work Phone: [phone]07-12-2024 09:45-0400Body temperature 97.3 [degF]Ester Cali MD Work Phone: [facility]07-11-2024 11:11-0400Body rbylgc920.4 cmPacc 3 Work Phone: [phone]07-11-2024 11:11-0400Body mass index (BMI) [Ratio]24.41 kg/m2Pacc 3 Work Phone: [phone]07-11-2024 11:11-0400Body acaklx30.7 kgPacc 3 Work Phone: [facility]07-09-2024 09:19-0400Body shwjyh297.9 cmEster Cali MD Work Phone: [phone]07-09-2024 09:19-0400Body mass index (BMI) [Ratio]23.62 kg/f0RdyzgsvEster Cali MD Work Phone: [phone]07-09-2024 09:19-0400Body luzeio10.7 kgEster Cali MD Work Phone: [facility]07-09-2024 09:19-0400Diastolic blood mxrejshp91 mm[Hg]Ester Cali MD Work Phone: [facility]07-09-2024 09:19-0400Heart rate86 /min Ester Cali MD Work Phone: [facility]07-09-2024 09:19-9420VeC6% (BldA) [Mass fraction]100 %Ester Cali MD Work Phone: [facility]07-09-2024 09:19-0400Systolic blood mm[Hg]Ester Cali MD Work Phone: [facility]05-20-2024 15:50-0400Diastolic blood comxtsfk09 mm[Hg]Palomo Davalos MD Work Phone: [facility]05-20-2024 15:50-0400Heart rate86 /min Palomo Davalos MD Work Phone: [facility]05-20-2024 15:50-0400Systolic blood jrbuxnju384 mm[Hg]Palomo Davalos MD Work Phone: [facility]02-21-2024 13:01-0500Body xvuljo699.94 cmDO Max Pavlock Work Phone: [facility]02-21-2024 13:01-0500 Body qbemmt83.69 kgDO Max Pavlock Work Phone: [facility]02-19-2024 11:21-0500 Body swrerp528.9 cmSbrent Castellanos MD Work Phone: [facility]02-19-2024 11:21-0500Body qozqro30.7 kgDrew Castellanos MD Work Phone: [facility]02-19-2024 11:21-0500Diastolic blood ezgbpiva62 mm[Hg]Drew Castellanos MD Work Phone: [facility]02-19-2024 11:21-0500Heart rate80 /min Drew Castellanos MD Work Phone: [facility]02-19-2024 11:21-1011ArZ6% (BldA) [Mass fraction]98 %Drew Castellanos MD Work Phone: [facility]02-19-2024 11:21-0500Systolic blood vnluhdlh030 mm[Hg]Drew Castellanos MD Work Phone: [facility]02-16-2024 16:03-0500Body objorf390.9 cmFrancis Garcia MD Work Phone: [facility] Ogbqqe43-64-9802 16:03-0500Body temperature 97.59 [degF]Francis Garcia MD Work Phone: [phone]and Udibmo54-17-5040 16:03-0500Body dteqhc23.2 kgFrancis Garcia MD Work Phone: [phone]and Xysgha69-34-7928 16:03-0500Diastolic blood ihdtgkid09 mm[Hg]Francis Garcia MD Work Phone: [facility] Copvlx10-35-9454 16:03-0500Heart rate68 /min Francis Garcia MD Work Phone: [phone] hospitaland Dunvlc96-16-1850 16:03-4559QsN7% (BldA) [Mass fraction]100 %Francis Garcia MD Work Phone: [facility]and Ystabx31-64-2009 16:03-0500Systolic blood kajxkrqj423 mm[Hg]Francis Garcia MD Work Phone: [place] Pmvwdo01-50-8391 16:06-0500Diastolic blood uvfffric54 mm[Hg]Palomo Davalos MD Work Phone: [facility]02-12-2024 16:06-0500Heart rate86 /min Palomo Davalos MD Work Phone: [place] [address]-12-2024 16:06-0500Systolic blood acqmxrur952 mm[Hg]Palomo Davalos MD Work Phone: [facility]09-14-2023 15:33-0400Body byryjf236.9 cmEster Cali MD Work Phone: [place] [address]-14-2023 15:33-0400Body fskeeb07.79 kgEster Cali MD Work Phone: [facility]09-14-2023 15:33-0400Diastolic blood mbsnityp68 mm[Hg]Ester Cali MD Work Phone: [facility]09-14-2023 15:33-0400Heart rate76 /min Ester Cali MD Work Phone: [facility]09-14-2023 15:33-0400Systolic blood mvyqxmjq413 mm[Hg]Ester Cali MD Work Phone: [facility]08-10-2023 11:58-0400Diastolic blood ijqukyys56 mm[Hg]Palomo Davalos MD Work Phone: [facility]08-10-2023 11:58-0400Heart rate85 /min Palomo Davalos MD Work Phone: [facility]08-10-2023 11:58-0400Systolic blood bgegcewx971 mm[Hg]Palomo Davalos MD Work Phone: [facility]08-05-2023 07:00-0400Diastolic blood ehhvyrbv95 mm[Hg]DO Max Pavlock Work Phone: [facility]08-05-2023 07:00-0400 Heart rate76 /minDO Max Pavlock Work Phone: [facility]08-05-2023 07:00-0400 SaO2% (BldA) [Mass fraction]98 %DO Max Pavlock Work Phone: [facility]08-05-2023 07:00-0400 Systolic blood adinyvli792 mm[Hg]DO Max Pavlock Work Phone: [facility]08-05-2023 06:33-0400 Respiratory rate18 /minDO Max Pavlock Work Phone: [facility]08-05-2023 02:58-0400 Body ayxnni370.94 cmDO Max Pavlock Work Phone: [facility]08-05-2023 02:58-0400 Body zbaimqmyapu07.1 [degF]DO Max Pavlock Work Phone: [facility]08-05-2023 02:58-0400 Body srubmu57.69 kgDO Max Pavlock Work Phone: [facility]05-05-2023 09:26-0400 Diastolic blood tfzdfqye09 mm[Hg]Palomo Davalos MD Work Phone: [facility]05-05-2023 09:26-0400Heart rate77 /min Palomo Davalos MD Work Phone: [facility]05-05-2023 09:26-0400Systolic blood dzsvqnau079 mm[Hg]Palomo Davalos MD Work Phone: [facility]04-07-2023 15:54-0400Body duropd617.9 cmYee Bejarano MD, PhD Work Phone: [phone]04-07-2023 15:54-0400Body qpyasz99.77 kgYee Bejarano MD, PhD Work Phone: [facility]04-07-2023 15:54-0400Diastolic blood muwwiatt13 mm[Hg]Yee Bejarano MD, PhD Work Phone: [phone]04-07-2023 15:54-0400Heart rate84 /min Yee Bejarano MD, PhD Work Phone: [phone]04-07-2023 15:54-7485JkS3% (BldA) [Mass fraction]98 %Yee Bejarano MD, PhD Work Phone: [facility]04-07-2023 15:54-0400Systolic blood dkwanppu623 mm[Hg]Yee Bejarano MD, PhD Work Phone: [place] [address]-30-2023 16:03-0500Diastolic blood lupykjgz21 mm[Hg]Palomo Davalos MD Work Phone: [facility]01-30-2023 16:03-0500Heart rate73 /min Palomo Davalos MD Work Phone: [facility]01-30-2023 16:03-0500Systolic blood yhnjpgaz746 mm[Hg]Palomo Davalos MD Work Phone: [facility]12-07-2022 15:42-0500Body .9 kgStger Castellanos MD Work Phone: [facility] SystemMpbitw87-75-8902 15:42-0500Diastolic blood egjnsnmv87 mm[Hg]Drew Castellanos MD Work Phone: cHol[facility] SystemHpdeae04-38-8515 15:42-0500Heart rate77 /min Drew Castellanos MD Work Phone: cHolzer [facility] SystemDxivxv74-29-7224 15:42-9084EaX8% (BldA) [Mass fraction]96 %Drew Castellanos MD Work Phone: cHolzer Health SystemEameam47-65-9833 15:42-0500Systolic blood gignpkrk519 mm[Hg]Drew Castellanos MD Work Phone: cHolzer Health SystemXxuyvf83-89-6016 15:57-0400Diastolic blood yiarsdsh44 mm[Hg]Palomo Davalos MD Work Phone: [facility]10-31-2022 15:57-0400Heart rate75 /min Palomo Davalos MD Work Phone: [facility]10-31-2022 15:57-0400Systolic blood xbhlwsfa933 mm[Hg]Palomo Davalos MD Work Phone: [facility]04-11-2022 16:05-0400Diastolic blood kddiamio38 mm[Hg]Palomo Davalos MD Work Phone: [facility]04-11-2022 16:05-0400Heart rate76 /min Palomo Davalos MD Work Phone: [facility]04-11-2022 16:05-0400Systolic blood cxnsoisw760 mm[Hg]Palomo Davalos MD Work Phone: [facility] Encounters Encounter DateEncounter TypeCare ProviderFacilityStart: 09-01-2025 End: 44-87-5232Knoartlqx encounterJoan Bellamy [facility] Family MedicineStart: 08-30-2025 End: 91-59-4236Kxjabj outpatient visit 15 minutes[facility] Renu Villavicencio APRN-LEAD FABRICATOR Work Phone: [facility] MedicineComment on above: Fibromyalgia (Primary Dx); Trigeminal neuralgiaStart: 08-30-2025 End: 29-01-6856atnxrjpzvrRGDOQR Renu VILLAVICENCIOHolmes County [facility] Start: 08-08-2025 End: 43-88-2017Dhoahbpmk encounterLaamy Main [facility] Comment on above:Med ManagementStart: 08-05-2025 End: 56-00-8951UnfsdvLorwkhsya Rojas SAP PAYROLL CONSULTANT-LEAD FABRICATOR Work Phone: [facility] MedicineComment on above: Fibromyalgia; Small fiber neuropathy; Muscle spasmStart: 07-29-2025 End: 60-48-7113PinonhWtdtvjlto Rojas SAP PAYROLL CONSULTANT-LEAD FABRICATOR Work Phone: [facility] Physicians Family MedicineComment on above: Fibromyalgia; Trigeminal neuralgiaStart: 07-27-2025 End: 36-14-6950Ihnwpjzhu encounterPalomo Davalos MD Work Phone: NeurologyComment on above:Medication Problem (Botox) Start: 07-26-2025 End: 86-50-0860Ewhdnwk encounter procedurePalomo Davalos MD Work Phone: NeurologyComment on above:Chronic migraine without aura, with intractable migraine, so stated, with status migrainosus (Primary Dx) Start: 07-26-2025 End: 03-25-1746vmeysmkogzAPKM N ESTEMALIKFacility:[facility] Start: 07-13-2025 End: 57-57-3948Pegxrbglijyz consultation with Reva Snider APRN.CNP Work Phone: NeurologyStart: 07-13-2025 End: 63-44-1987mdwjvsyokjYgacmxocJames Snider APRN.CNP Work Phone: NeurologyComment on above:Narcolepsy and cataplexy (HCC) (Primary Dx); Long-term current use of stimulantStart: 07-09-2025 End: 83-09-9435Lsspza-up Yaquelin HILLMANTexas Health [facility] Physicians Family MedicineComment on above:CT low dose lung screening (Annual)Ultrasound abdomen completeStart: 07-06-2025 End: 92-28-2394Dmacke Betzaida Patel APRN-LEAD FABRICATOR Work Phone: [facility] Physicians Family MedicineComment on above: Lung nodules (Primary Dx)Start: 07-02-2025 End: 01-37-9541kbtpezekxtBGFTOWETRFalls Community Hospital and Clinic HospitalStart: 07-01-2025 End: 70-32-1304yvlzvtbotiJXJSQGYXTCHI [facility] Ambulatory PPGStart: 07-01-2025 End: 00-82-6977Gfktjf outpatient visit 15 minutesAlecarlos HOUSE Work Phone: [facility] Physicians Family MedicineComment on above: Generalized abdominal pain (Primary Dx); Nausea and vomiting, unspecified vomiting type; Right upper quadrant pain; Migraine with aura and without status migrainosus, not intractableStart: 06-29-2025 End: 22-91-4226Ihrfbw Betzaida Patel APRN-LEAD FABRICATOR Work Phone: [facility] Physicians Family MedicineComment on above: Lung nodule (Primary Dx)Start: 06-24-2025 End: 35-90-4504dgbbimxssbYQYIWMMMD ROJASProMedica Mertztown HospitalStart: 06-24-2025 End: 86-22-9966Qercham encounter procedurePalomo Davalos MD Work Phone: NeurologyComment on above:Botox assistanceStart: 06-23-2025 End: 44-91-8782gitnocszrnINDL CARNEVALFacility:[facility] HospitalStart: 06-08-2025 End: 31-54-3408rlkawxvseqIYII CARNEVALFacility:[facility] HospitalStart: 06-08-2025 End: 75-36-4484Jwsttvwtx to same day surgery [facility] Centergarland Reneevt DO Work Phone: General SurgeryComment on above:Acute diverticulitis (Primary Dx); Small fiber neuropathy; Liver lesionStart: 06-08-2025 End: 34-16-3842Uqyzdkgjsrpw consultation with [facility] Hospitalgarland Green DO Work Phone: General SurgeryStart: 06-03-2025 End: 50-39-7860Cettdiv encounter procedureAlecarlos Patel BAND SHOVER-C-CT Scan [facility] [place] Work Phone: Start: 06-03-2025 End: 52-73-5570Whajtl OnlyJeff Patel SAP PAYROLL CONSULTANT-LEAD FABRICATOR Work Phone: [facility] Physicians Family MedicineComment on above: Diverticulitis (Primary Dx)Start: 05-31-2025 End: 10-74-2166JoizqbMrpockekq Hartman SAP PAYROLL CONSULTANT.LEAD FABRICATOR Work Phone: NeurologyComment on above:Refill RequestStart: 05-24-2025 End: 79-67-4771Wetnfz Yanick HILLMANAProMedica Physicians Family MedicineComment on above:Fibromyalgia; Cervical radiculopathy; Chronic midline low back pain with bilateral sciatica; Encounter for screening mammogram for malignant neoplasm of breastStart: 05-20-2025 End: 25-97-7433Eapscvb encounter procedureAlecarlos Patel BAND SHOVER-C-MRI [facility] [place] Work Phone: Start: 05-20-2025 End: 73-14-8919nsbvinhwwuRpvbpnlhe K Rojas NP-C Work Phone: [facility] Work Phone: Start: 05-19-2025 End: 21-29-5302mxysxcooglMTAYITEQWCHI [facility] Ambulatory PPGStart: 05-19-2025 End: 94-34-5700Dfmcaki encounter procedureAlecarlos Patel SAP PAYROLL CONSULTANT-LEAD FABRICATOR Work Phone: [facility] Physicians Family MedicineComment on above: Medicare annual wellness visit, subsequent (Primary Dx); Fibromyalgia; Trigeminal neuralgia; Encounter for screening mammogram for malignant neoplasm of breast; Former smoker; Encounter for screening for malignant neoplasm of lung in former smoker who quit in past 15 years with 20 pack year history or greater; Liver lesion; Non-alcoholic fatty liver diseaseStart: 04-26-2025 End: 52-44-9665cmtvlwivkcHKHU N ESTEMALIKFacility:[facility] Start: 04-26-2025 End: 10-36-7439Yyztabd encounter procedurePalomo Davalos MD Work Phone: NeurologyComment on above:Chronic migraine without aura, with intractable migraine, so stated, with status migrainosus (Primary Dx) Start: 04-19-2025 End: 57-26-8975Wjfmrh outpatient visit 25 minutesAlecarlos Patel APRN-LEAD FABRICATOR Work Phone: [facility] Physicians Family MedicineComment on above: Fibromyalgia (Primary Dx); Chronic midline low back pain with bilateral sciatica; Cervical radiculopathy; Trigeminal neuralgiaStart: 04-19-2025 End: 58-16-5805mqcsszvvsrNOTHWMWDRCHI [facility] Ambulatory PPGStart: 04-14-2025 End: 11-88-1447Zrtfko-up encounterSomid Stockton APRN.LEAD FABRICATOR Work Phone: NEUROLOGYStart: 04-13-2025 End: 39-61-0697Hcnrvcl evaluation of patient and reportMa Nurse Ovidio Quinteros Work Phone: Hematology/OncologyComment on above:Narcolepsy and cataplexy (HCC); Long-term current use of stimulantStart: 04-13-2025 End: 77-40-5914hinabfpskiIBUCXPJTF [facility]anticokecility:[facility] Start: 04-09-2025 End: 57-70-9921efcragrtzzJVIPCZNVP HARTMANFacility:[facility] Start: 04-02-2025 End: 53-89-1182jhejsqdwirSYLATQVAKSurgery [facility] Ambulatory PPGStart: 04-02-2025 End: 87-29-8243Gndlac outpatient visit 15 minutesHavasu Regional Medical Centercarlos Patel SAP PAYROLL CONSULTANT-LEAD FABRICATOR Work Phone: [facility] Physicians Family MedicineComment on above: Bronchitis (Primary Dx)Start: 03-26-2025 End: 47-64-9584ebhfqzdrayBxce N Estemalik MD Work Phone: NeurologyStart: 03-26-2025 End: 04-46-2902Belgzgo encounter procedurePalomo Davalos MD Work Phone: NeurologyComment on above:BotoxStart: 02-10-2025 End: 16-95-9308Xzxiizs encounter procedureAlecarlos Patel BAND SHOVER-C Work Phone: [facility] Work Phone: Start: 02-10-2025 End: 33-77-5868xeqqofkbwiCemhnhlqm K Rojas BAND SHOVER-C Work Phone: [facility] Work Phone: Start: 02-09-2025 End: 90-79-3837rzrwbpkbsoNHY BARB PAVLOCKFacility:[facility] Start: 02-09-2025 End: 46-67-7996Qjaldcj encounter procedureDheeraj Chen MD Work Phone: Colorectal SurgeryComment on above:External hemorrhoid, thrombosed (Primary Dx)Start: 02-08-2025 End: 43-71-0234gszdsekhdhEfqmyxb Ban MD Work Phone: Colorectal SurgeryStart: 02-08-2025 End: 61-47-9251Gagzxu-up encounterEster Cali MD Work Phone: Colorectal SurgeryComment on above:THD 05/29/24 Follow up questionsStart: 02-04-2025 End: 75-84-5987xnndmgqdyxPqrxfju N Crowe MD Work Phone: NeurologyComment on above:Attn. DianaStart: 01-22-2025 End: 30-72-1719L-mail encounter from caregiverCcf ProviderNeurologyStart: 01-22-2025 End: 33-52-2206Votvpjr encounter procedureAlecarlos Patel BAND SHOVER-C Work Phone: [facility] [place] Work Phone: Start: 01-22-2025 End: 56-79-0529vagviszrdlZrd ProviderNeurologyComment on above:Patient Assistance Program BotoxStart: 01-18-2025 End: 77-86-2067mktfpafaguVGLWGCD MOOSANot AvailableStart: 01-15-2025 End: 58-76-2780lqrnckgxpgOvtaniAudubon County Memorial Hospital and ClinicsComment on above:Fibromyalgia (Primary Dx); Small fiber neuropathy; Muscle spasmStart: 01-14-2025 End: 19-45-0369Cqrp/qhp telephone evaluation 5-10 minJeff Patel SAP PAYROLL CONSULTANT-LEAD FABRICATOR Work Phone: [facility] Family MedicineComment on above: Fibromyalgia (Primary Dx); Small fiber neuropathyStart: 01-14-2025 End: 96-96-5179eivlmqjlqhAWTWTTKIWSurgery [facility] Ambulatory PPGStart: 01-13-2025 End: 71-41-1524nmfhyoatgjYBRBMSR N CROWEFacility:[facility] Daytontart: 01-13-2025 End: 68-66-3083Byqgemx encounter procedureSbrent Castellanos MD Work Phone: NeurologyComment on above:Narcolepsy and cataplexy Start: 01-04-2025 End: 47-02-7292Bwipigc encounter procedureAlecarlos Patel BAND SHOVER-C Work Phone: [facility] [place] Work Phone: Start: 01-04-2025 End: 02-68-3460drgqhncmzuYwmpcnnfm K Rojas BAND SHOVER-C Work Phone: [facility] Work Phone: Start: 12-30-2024 End: 19-94-4594ybdvcahcleAVE BARB QUESADAFULTON COUNTY MEDICAL CENTERFacility:[facility] Start: 12-30-2024 End: 43-13-6881Lkxircpiq encounterPalomo Davalos MD Work Phone: NeurologyComment on above:Patient Question (Botox) Start: 12-26-2024 End: 87-38-1140tnlhosuuzkPkmmnygv O Brennecke MD Work Phone: NeurologyComment on above:Tingling (Primary Dx); Burning sensationStart: 12-26-2024 End: 04-63-6660Fzrymtqcqyly consultation with Zeyad Garcia MD Work Phone: NeurologyStart: 12-25-2024 End: 86-87-9807Zkydupdrd encounterElliot Puga RN Work Phone: NeurologyStart: 12-24-2024 End: 67-61-1457zelaehebvyJUAKTOR White Hospitaltart: 12-21-2024 End: 50-58-8074dcpbnfojvvZTYL N ESTEMALIKFacility:[facility] Start: 12-21-2024 End: 49-13-8613Ddifljq encounter procedurePalomo Davalos MD Work Phone: NeurologyComment on above:Chronic migraine without aura, with intractable migraine, so stated, with status migrainosus (Primary Dx) Start: 12-21-2024 End: 71-19-2247Aiesmlt encounter procedureAlecarlos Patel BAND SHOVER-C Work Phone: [facility] [place] Work Phone: Start: 12-21-2024 End: 39-85-8844lfsjiuwdhsDzsdneopx K Rojas BAND SHOVER-C Work Phone: [facility] Work Phone: Start: 12-17-2024 End: 98-48-1185Lvwfsgqgm encounterNicric Garcia MD Work Phone: NeurologyComment on above:Appointment QuestionsStart: 12-15-2024 End: 39-80-5806Htnlvy OnlyAlecarlos Patel SAP PAYROLL CONSULTANT-LEAD FABRICATOR Work Phone: [facility] Family MedicineStart: 12-15-2024 End: 91-52-5497Qdeccaa encounter procedureAlecarlos Patel BAND SHOVER-C Work Phone: [facility] [address] Work Phone: Start: 12-03-2024 End: 38-62-2229Uqhctok encounter procedureAlecarlos Patel BAND SHOVER-C Work Phone: [facility] [place] Work Phone: Start: 12-03-2024 End: 06-12-9880hcjlprqulgRyrdmakvr K Rojas BAND SHOVER-C Work Phone: [facility] Work Phone: Start: 11-25-2024 End: 37-12-5805kevtfwyephNszflmi N Crowe MD Work Phone: NeurologyComment on above:Vyvanse dose increase update Start: 11-21-2024 End: 79-21-0053Zveptf OnlyAlexayasmeenra Patel SAP PAYROLL CONSULTANT-LEAD FABRICATOR Work Phone: [facility] Physicians Family MedicineComment on above: Chronic cough (Primary Dx)Start: 11-19-2024 End: 38-16-5195Oultvfdaj encounterJoan Bellamy RAYMONDProMedica Physicians Family MedicineStart: 10-23-2024 End: 55-15-9878Xrduacwkt encounterSbrent Castellanos MD Work Phone: NeurologyStart: 10-12-2024 End: 43-16-7944zrsbpzhishViyvfri N Crowe MD Work Phone: NeurologyComment on above:Narcolepsy with cataplexy (Primary Dx)Start: 10-12-2024 End: 40-23-9023Gpnhfoikdpch consultation with patientSbrent Castellanos MD Work Phone: NeurologyStart: 10-09-2024 End: 67-94-5758Jilyjz outpatient new 45 minutesAlexalynn Hookss SAP PAYROLL CONSULTANT-LEAD FABRICATOR Work Phone: [facility] Physicians Family MedicineComment on above: Supraventricular tachycardia (CMS-HCC) (Primary Dx); Primary adrenocortical insufficiency (CMS-HCC); Fibromyalgia; Migraine with aura and without status migrainosus, not intractable; Encounter to establish care; Diverticulitis; Trigeminal neuralgia; Primary narcolepsy with cataplexy; Muscle spasmStart: 10-09-2024 End: 15-00-1298kzjsysskvdXWJGKRLXMSurgery Specialty Hospitals of [facility] Ambulatory PPGStart: 10-05-2024 End: 82-68-5188Jeythbrbt encounterSomid [place] APRN.LEAD FABRICATOR Work Phone: NeurologyStart: 09-23-2024 End: 50-08-9349rdzbfbyqtcSFMLHL P JONESNot AvailableStart: 09-23-2024 End: 49-62-9271Bwhkzzc encounter statusTu Flores MD Work Phone: [facility] Work Phone: start: 09-23-2024 End: 53-20-7447Tigidwbk preventive med est patient 40-64yrsPenola Espinoza Flores MD Work Phone: noms SWS OBComment on above:Encounter for gynecological examination without abnormal finding (Primary Dx); Screening for malignant neoplasm of cervix; Encounter for screening mammogram for malignant neoplasm of breast; Postmenopausal HRT (hormone replacement therapy)Start: 09-22-2024 End: 58-26-7464Hhbvanoku encounterEmaran Dvaalos MD Work Phone: NeurologyComment on above:Referral RequestStart: 09-21-2024 End: 44-32-0810lrqjgoifaySALU N ESTEMALIKFacility:[facility] Start: 09-21-2024 End: 39-31-6600Cfjqrnh encounter procedureEmaran Davalos MD Work Phone: NeurologyComment on above:Chronic migraine without aura, with intractable migraine, so stated, with status migrainosus (Primary Dx) Start: 08-27-2024 End: 74-08-8727avowayyyfcXLVLP NORTHEIMNot AvailableStart: 08-27-2024 End: 13-31-5937Dhoodn outpatient [address] Any NARAYANAN Work Phone: n[facility] SWS DERMComment on above:Other atopic dermatitis (Primary Dx); Molluscum contagiosumStart: 08-26-2024 End: 97-99-2824G-mail encounter from caregiverCcf ProviderFamily MedicineStart: 08-26-2024 End: 42-67-8113Cklilsv encounter procedureCcf ProviderFamily MedicineComment on above:Appointment for 09/21/2024 time has changedStart: 08-20-2024 End: 20-07-4333caeljnxxdjCPNI CARNEVALFacility:[facility] Daytontart: 08-20-2024 End: 16-72-8599Gkpaytg encounter procedureCristina Green DO Work Phone: General SurgeryComment on above:S/P right inguinal hernia repair (Primary Dx); Allergic reaction, initial encounterStart: 08-11-2024 End: 57-52-5388Mcgmbozki to same day surgery [facility] Centergarland ReneeRajant Corporation Work Phone: [facility] SurgeryComment on above:Feet and hands with constant severe itchingStart: 08-11-2024 End: 32-74-0040kkhdqsrjohLsvb CarnevRajant Corporation Work Phone: [facility] SurgeryStart: 08-06-2024 End: 32-18-2919Bnlmbzncg encounterAtlantic Rehabilitation Institutegarland ReneeRajant Corporation Work Phone: [facility] SurgeryComment on above:Patient QuestionStart: 08-06-2024 End: 83-70-4010Urzmdofqe to same day surgery [facility] ThelmaRajant Corporation Work Phone: [facility] SurgeryComment on above:Postoperative hematoma of musculoskeletal structure following non-musculoskeletal procedure (Primary Dx)Post op Rt. Inguinal hernia repair pictures for virtual apptStart: 08-06-2024 End: 97-72-8193cqloycqbnkQvvl CarnevRajant Corporation Work Phone: [facility] SurgeryStart: 08-06-2024 End: 89-03-7386Jwobzazufcot consultation with Yosvany Green HungerTime Phone: [facility] SurgeryStart: 07-31-2024 End: 14-91-9450Qzvmhlkit encounterAtlantic Rehabilitation Institutegarland Green HungerTime Phone: [facility] SurgeryComment on above:Patient UpdateStart: 07-30-2024 End: 75-83-0960thaarpuuofEGK BARB PAVLOCKFacility:[facility] HospitalStart: 07-16-2024 End: 45-31-2215Sgawzssja to [facility] Durga VirtualPre AnesthesiaStart: 07-16-2024 End: 89-19-2057Dphcoxqoch consultationHaven Behavioral Hospital Of Eastern PennsylvaniaPre AnesthesiaComment on above:Pre-op evaluation (Primary Dx); POTS (postural orthostatic tachycardia syndrome); Adrenal insufficiency (HCC); Hypothyroidism, unspecified type; Dyslipidemia; Primary narcolepsy with cataplexy; History of diverticulitis; Trigeminal neuralgiaStart: 07-16-2024 End: 58-36-7433Bqcrsngdwjtyd examination donePaC[facility] Clinic [facility] Work Phone: Start: 07-09-2024 End: 31-64-2220fdpegxwkrdWkmffdgrd Hartman APRN.LEAD FABRICATOR Work Phone: NeurologyComment on above:Narcolepsy with cataplexy (Primary Dx); Long-term current use of stimulant; Narcolepsy without cataplexyStart: 07-09-2024 End: 83-29-2926Acjffemrcazk consultation with Kade Stockton APRN.LEAD FABRICATOR Work Phone: NeurologyStart: 07-03-2024 End: 88-33-1335Qjvsplh encounter procedureCristina Green DO Work Phone: General SurgeryComment on above:Right inguinal hernia (Primary Dx); Adrenal insufficiency (HCC)Start: 06-29-2024 End: 72-35-4925Slnxgrc encounter procedurePalomo Davalos MD Work Phone: NeurologyComment on above:Chronic migraine without aura, with intractable migraine, so stated, with status migrainosus (Primary Dx) Start: 58-57-0036fitjkgzyrsIfkwboi [employer] PA-C Work Phone: OtolaryngologyComment on above:Consent left ear pain, redness and drainageStart: 06-10-2024 End: 51-85-7597Utnvxxu encounter procedureCaitlin Sukalac PA-C Work Phone: OtolaryngologyComment on above:Conductive hearing loss, bilateral (Primary Dx); Chronic suppurative otitis media of both ears, unspecified otitis media location Start: 05-29-2024 End: 27-59-7690Cfonwvdyhz hospital visit by Ines Cali MD Work Phone: [facility] CenterComment on above:Hemorrhoids, unspecified hemorrhoid type [K64.9]Start: 05-28-2024 End: 35-18-8034Bnkwfsxes to [facility] [place] Virtual 3 Work Phone: Pre AnesthesiaStart: 05-28-2024 End: 10-49-6660Obctmnrozo consultationMerged With [facility] 3 Work Phone: Pre AnesthesiaComment on above:Pre-op evaluation (Primary Dx); Trigeminal neuralgia; POTS (postural orthostatic tachycardia syndrome); Sleep apnea, unspecified type; Hypothyroidism, unspecified type; Adrenal insufficiency (HCC); DyslipidemiaStart: 05-28-2024 End: 14-76-6204Utfeyrzjljgrd examination [facility] 3 Work Phone: [facility] Work Phone: Start: 05-26-2024 End: 95-69-5397Hacpqcd encounter procedureEster Cali MD Work Phone: Colorectal SurgeryComment on above:Internal hemorrhoids with complication (Primary Dx)Start: 89-19-8431Lypevcatt encounter Ester Cali MD Work Phone: Colorectal SurgeryComment on above:CORS SurgeryStart: 13-48-4398QzkfdcQpvvkhneu Hartman APRN.LEAD FABRICATOR Work Phone: NeurologyComment on above:Refill RequestStart: 05-05-2024 End: 15-17-0469kandpjixrpPY David L Pavlock Work Phone: [facility] Work Phone: Start: 05-05-2024 End: 45-06-2839Vcatpmg encounter procedureDO David Pavlock Work Phone: [facility] [place] Work Phone: Start: 53-96-3722Idfmnsugf encounterSomid Stockton APRN.CNP Work Phone: NeurologyStart: 69-28-3047smskqceqbbHbgatim Jazmin CANAS Work Phone: OtolaryngologyComment on above:Can you do a virtual appt for ear pain, I have ear picsStart: 04-09-2024 End: 16-31-7208nszjpnsppsElkbokdzp Hartman APRN.CNP Work Phone: NeurologyComment on above:Narcolepsy with cataplexy (Primary Dx); Long-term current use of stimulant; Narcolepsy without cataplexyStart: 04-09-2024 End: 06-83-5034Yaszxpvrniaa consultation with Kade Stockton APRN.LEAD FABRICATOR Work Phone: NeurologyStart: 04-06-2024 End: 90-19-3098Vfcmyre encounter procedurePalomo Davalos MD Work Phone: NeurologyComment on above:Chronic migraine without aura, with intractable migraine, so stated, with status migrainosus (Primary Dx); Supraventricular tachycardia (HCC)Start: 11-99-8080Uzbcxoinn encounterRelynne Ramirez APRN.CNP Work Phone: NeurologyStart: 03-02-2024 End: 70-61-5936fimmayigtgBOEFERKRA H SMITHNot AvailableStart: 01-08-2024 End: 83-43-5786Mxgvtzq encounter procedureDO David Mayfield Work Phone: [facility] [place] Work Phone: Start: 01-08-2024 End: 52-08-5958hxlonbmalxKN David Echeverria Pavterrence Work Phone: [facility] Work Phone: Comment on above:BAHA Implant MRI INFOStart: 01-06-2024 End: 69-99-5133Woliyae encounter Lubna Castellanos MD Work Phone: NeurologyComment on above:Narcolepsy without cataplexy (Primary Dx)Start: 01-03-2024 End: 46-97-1852Cxcetrp encounter procedureFrancis Garcia MD Work Phone: NeurologyComment on above:Left foot drop (Primary Dx) Start: 12-30-2023 End: 52-04-8547baygedqgmfVpe 400) Work Phone: NeurologyComment on above:EMGStart: 12-30-2023 End: 13-05-0280Ngliobi encounter procedureEmg 2 Neur Fhc Rej (Max Weight: 400) Work Phone: AMYJESSE PAGE FHCComment on above:Chronic migraine without aura, with intractable migraine, so stated, with status migrainosus (Primary Dx)Start: 10-29-2023 End: 15-31-9846vdhgxnzfklWI David Mayfield Work Phone: [facility] Work Phone: Start: 10-29-2023 End: 83-29-9311Axkanid encounter procedureDO David Mayfield Work Phone: [facility] [place] Work Phone: Start: 10-01-2023 End: 54-41-1835jihpwwooveQfzkqvvsi Hartman APRN.CNP Work Phone: NeurologyComment on above:Narcolepsy with cataplexy (Primary Dx); Long-term current use of stimulantStart: 10-01-2023 End: 49-33-3576Sfxvvqttvjlw consultation with Kade [place] APRN.CNP Work Phone: [facility]ENTERStart: 09-10-2023 Telephone encounterSbrent Castellanos MD Work Phone: NeurologyStart: 08-01-2023 End: 42-49-7213Yekbsmm encounter procedureEster Cali MD Work Phone: Colorectal SurgeryComment on above:Hemorrhoids, unspecified hemorrhoid type (Primary Dx)Start: 07-29-2023 End: 89-16-5941hjwtwmijrvZH David Mayfield Work Phone: [facility] Work Phone: Start: 07-29-2023 End: 20-41-4119Ouwflbl encounter procedureDO David Mayfield Work Phone: [facility] [place] Work Phone: Start: 07-05-2023 End: 01-53-0369tznjwqtjcmYfcnmse N Crowe MD Work Phone: NeurologyComment on above:Narcolepsy with cataplexy (Primary Dx)Start: 07-05-2023 End: 07-27-3208Pkuojrfsxgpk consultation with patientSbrent Castellanos MD Work Phone: [facility] CENTERStart: 06-27-2023 End: 91-75-3698Bwrkkep encounter procedurePalomo Davalos MD Work Phone: NeurologyComment on above:Chronic migraine without aura, with intractable migraine, so stated, with status migrainosus (Primary Dx); Supraventricular tachycardia (HCC)Start: 06-22-2023 End: 22-12-3027Xadhjmqkp department patient visitDO David Mayfield Work Phone: [facility] Work Phone: Start: 38-72-4933Zuuqqzqiq encounterPalomo Davalos MD Work Phone: NeurologyComment on above:Referral RequestStart: 03-22-2023 End: 94-57-5943Pvpremn encounter procedurePalomo Davalos MD Work Phone: NeurologyComment on above:Chronic migraine without aura, with intractable migraine, so stated, with status migrainosus (Primary Dx); Supraventricular tachycardia (HCC)Start: 59-20-7530Ptxmcjtvy encounterGinny Flores RN Work Phone: NeurologyComment on above:Medication ProblemStart: 20-15-5865CtentuHhobmar N Crowe MD Work Phone: NeurologyComment on above:Refill RequestStart: 02-22-2023 End: 76-32-1476Mbnqycy encounter procedureYee Bejarano MD, PhD Work Phone: NeurologyComment on above:Brachial plexus disorders (Primary Dx); TOS (thoracic outlet syndrome); Arthropathy of spinal facet joint; Cervicogenic headache; Chronic daily headache; Neuropathic pain; Myofascial painStart: 61-21-6573bzlasknffgVqvmynr N Crowe MD Work Phone: [facility] CENTERStart: 02-08-2023 Follow-up encounterSbrent Castellanos MD Work Phone: NeurologyComment on above:Medication Follow upStart: 44-78-3349Kriapftls encounterSbrent Castellanos MD Work Phone: NeurologyComment on above:Patient QuestionStart: 39-97-4349Emiahufly encounterYee Bejarano MD, PhD Work Phone: NeurologyComment on above:Received Outside Medical Records ([facility] )Start: 01-25-2023 End: 46-78-7639jtxdhoohtyPhwgzvd N Crowe MD Work Phone: NeurologyComment on above:Primary narcolepsy with cataplexy (Primary Dx)Brachial plexus disorders (Primary Dx); TOS (thoracic outlet syndrome); Myofascial pain; Arthropathy of spinal facet joint; Chronic daily headache; Cervicogenic headache; Neuropathic painStart: 01-25-2023 End: 85-95-6301Uogqgselimnq consultation with patientSbrent Castellanos MD Work Phone: [facility] CENTERStart: 01-17-2023 Eric Flores RN Work Phone: NeurologyComment on above:thyroid labsStart: 53-47-2784Y-mail encounter from caregiverGinny Flores RN Work Phone: [facility] MAINStart: 02-21-4401Kikpwxvag encounterSbrent Castellanos MD Work Phone: NeurologyComment on above:Insurance Authorization (PA submitted for Xywav)Start: 12-17-2022 End: 52-06-7116Yjuvssd encounter procedurePalomo Davalos MD Work Phone: NeurologyComment on above:Chronic migraine without aura, with intractable migraine, so stated, with status migrainosus (Primary Dx) Start: 34-39-5834Bujzschll encounterPalomo Davalos MD Work Phone: NeurologyComment on above:Botox InjectionStart: 12-03-2022 End: 42-18-5052sddfmvdsukIP Max L PavMoolta Work Phone: [facility] Work Phone: Start: 12-03-2022 End: 62-23-5767Fglrzcn encounter procedureDO David Pavlock Work Phone: [facility] [place] Work Phone: Start: 07-76-3325Zptjtyzqq encounterGinny Flores RN Work Phone: NeurologyComment on above:Insurance Authorization (New insurance PA initiated for Xywa)Start: 75-99-5700Zunmnyhoo encounterPalomo Davalos MD Work Phone: NeurologyComment on above:Referral Request (NEW INSURANCE)Start: 05-91-8238CvpibfLorna Chung RNHematology/OncologyComment on above:Hypothyroidism, unspecified type (Primary Dx)Start: 70-56-1481Apsseruaj encounterSbrent Castellanos MD Work Phone: NeurologyComment on above:Insurance Authorization Start: 57-31-5461DliblyDiozrkb N Crowe MD Work Phone: NeurologyComment on above:Refill RequestStart: 98-10-5175Damdrwlbn encounterGinny Flores RN Work Phone: NeurologyComment on above:Insurance Authorization (PA sent and approved for [employer]); Approval Letter for WakixStart: 10-24-2022 End: 24-11-5710Uxvtplq encounter procedureSbrent Castellanos MD Work Phone: NeurologyComment on above:Primary narcolepsy with cataplexyStart: 97-93-4595Ekehoq OnlyEse Chung RNHematology/OncologyComment on above:Hypothyroidism, adult (Primary Dx)Start: 95-26-9937Qcobmfxmb encounter Drew Castellanos MD Work Phone: NeurologyComment on above:Medication Dosage Adjustment (Per pharmacy )Start: 07-36-3129Iwamsjijk encounterSbrent Castellanos MD Work Phone: NeurologyComment on above:Medication Problem; Mud Mill Tender - OtherStart: 61-11-1358LfuqcrXtygrnw N Crowe MD Work Phone: NeurologyComment on above:Refill RequestStart: 09-17-2022 End: 24-26-5261Iljlfkf encounter Karla Davalos MD Work Phone: NeurologyComment on above:Chronic migraine without aura, with intractable migraine, so stated, with status migrainosus (Primary Dx) Start: 08-20-2022 End: 52-48-2515afqntrkshmFW SEBASTIAN Zapata WESTFacility:D4Hbfmu: 30-46-3815Oagaet Only Ela Eugene Work Phone: Hematology/OncologyComment on above:Hyperlipidemia, unspecified hyperlipidemia type (Primary Dx); Unspecified hypothyroidismStart: 07-13-2022 End: 39-86-5664fidswsfeqjZpjzdlt N Crowe MD Work Phone: NeurologyComment on above:Primary hypersomnia (Primary Dx)Start: 07-13-2022 End: 58-75-3213Wtalzetigydy consultation with patientSbrent Castellanos MD Work Phone: c [facility] CAREStart: 17-69-2989TgmfqkYpmvmfhjBelkis Snider APRN.LEAD FABRICATOR Work Phone: NeurologyComment on above:Refill RequestStart: 81-43-0480Xxqlmx Brianna Canada RNHematology/OncologyComment on above: Hyperlipidemia, unspecified hyperlipidemia type (Primary Dx)Start: 02-26-2022 End: 86-02-6379Jjisvoi encounter procedureEmaran Davalos MD Work Phone: NeurologyComment on above:Chronic migraine without aura, with intractable migraine, so stated, with status migrainosusStart: 00-61-6187Fyhgonmnf encounterEmaran Davalos MD Work Phone: NeurologyComment on above:Referral RequestStart: 19-44-5569Pydkgl ToniEse Canada RNHematology/OncologyComment on above: Hyperlipidemia, unspecified hyperlipidemia type (Primary Dx); Adrenal insufficiency (HCC); Hypothyroidism, adult; Vitamin D deficiencyStart: 09-07-2021 End: 02-41-4750Mjdwfyuncm hospital visit by physicianCt [facility] Work Phone: RadiologyComment on above:Cholesteatoma, unspecified laterality [H71.90]Start: 09-14-2019 End: 81-79-1511Ukbqdkx encounter procedureMAANAHY Mares [facility] Hospitaltart: 09-14-2019 End: 50-42-8716Krmsdargtg hospital visit by physicianDavid Mendoza Start: 04-15-2018 End: 73-32-9200WlxypyhtgcSWZFFN J KOSINSKIFacility:UTMCStart: 01-29-2018 End: 20-26-3116UvvrcxppbrQFZEVEK PHYSICIANFacility:UTMCStart: 05-29-2017 End: 25-71-1028WcpyhgildhFXPXYM J COVERDALEFacility:AMCStart: 05-29-2017 Emergency dept visit high severity&threat funcjPHILIP COVERDABraxton County Memorial [facility] Procedures DateProcedureProcedure DetailPerforming ClinicianStart: 05-66-0428Iorfk depression screening assessmentNabil Villavicencio SAP PAYROLL CONSULTANT-LEAD FABRICATOR Work Phone: Start: 23-94-7006LK of abdomen and pelvis without contrastAlexandra Patel BAND SHOVER-C Work Phone: Start: 78-73-6426JF lumbar spine wo conAlexandra Patel BAND SHOVER-C Work Phone: Start: 48-58-6996TNV of cervical spine without contrastAlexandra Patel BAND SHOVER-C Work Phone: Start: 64-04-1346KN CERVICAL SPINE WO CONTAlexandra Patel SAP PAYROLL CONSULTANT-LEAD FABRICATOR Work Phone: Start: 41-51-6462KS LUMBAR SPINE WO CONTAlexandra Patel SAP PAYROLL CONSULTANT-LEAD FABRICATOR Work Phone: Start: 41-36-5534PJ pre/post mri xrayAlexandra Patel BAND SHOVER-C Work Phone: Start: 57-81-5579Qbrvy depression screening assessment Jeff Hookss SAP PAYROLL CONSULTANT-LEAD FABRICATOR Work Phone: Start: 64-25-7070Uqlrmg-up visitFollow-upAJCROSIERA HOOKSSStart: 84-97-1800Vvrxt volume recorder plethysmographyAlexandra Patel BAND SHOVER-C Work Phone: Start: 42-29-0855Tmlsuii ultrasonography of bilateral carotid arteriesAlexandra Patel BAND SHOVER-C Work Phone: Start: 86-14-6272Zvfpm depression screening assessment Jeff Hookss SAP PAYROLL CONSULTANT-LEAD FABRICATOR Work Phone: Start: 66-06-8601YZA of headAlexandra Patel BAND SHOVER-C Work Phone: Start: 04-48-0775Vjzoc depression screening assessment Jeff Patel SAP PAYROLL CONSULTANT-LEAD FABRICATOR Work Phone: Start: 18-62-6437NfmiulkwcypVwutli Jones MD Work Phone: start: 79-48-3376Nulcv conduction studies 5-6 studies Francis Garcia MD Work Phone: Start: 30-39-5082YvyowhqjpjtYemes Northeim PA Work Phone: Start: 57-09-7165Dfqnzinw tomography of abdomen and pelvis with contrastDO Max Pavlock Work Phone: Start: 04-79-4855Vsnve 1996 panel - Serum or Plasma Ester Cali MD Work Phone: Start: 01-98-6330Tnajo depression screening assessment Drew Castellanos MD Work Phone: Start: 90-85-6534Jcprg depression screening assessment Palomo Davalos MD Work Phone: Start: 79-75-0607Wi orbit sella/post fossa/ear w/o contrast matrlCaitlin Jazmin PA-C Work Phone: Start: 98-04-7694Qybru depression screening assessment Ese Canada RNStart: 13-18-651169 hydroxy includes fractions if performed ELA MOOSAStart: 54-21-2418Iuayp of free thyroxineMAHMOOD MOOSAStart: 18-63-2919Aslap of thyroid stimulating hormone tshMAHMOOD MOOSAStart: 09-14-2019 Lipid panelMAHMOOD MOOSAStart: 69-84-0355Jgawjevsx serum plasma/whole blood ELA MOOSAStart: 04-25-4194Eeinydrslym alanine amino alt sgptMAHMOOD MOOSA Start: 46-44-888196 hydroxy includes fractions if performedMahmood F Moosa Work Phone: Start: 28-94-4300Trfsx of free thyroxineMahmood F Moosa Work Phone: Start: 59-13-9629Uxqco of thyroid stimulating hormone tshMahmood F Moosa Work Phone: Start: 94-68-8202Mgake panelEla Eugene Work Phone: Start: 88-03-3532Enuyyxxot serum plasma/whole blood Ela Eugene Work Phone: Start: 73-48-6240Vvokzofavsy alanine amino alt sgpt Ela Eugene Work Phone: History of repair of inguinal herniaS/P right inguinal hernia repairMary Thelmaal Work Phone: Plan of Treatment DateCare ActivityDetailAuthorStart: 15-28-9959WQzT,Tdap and Td Vaccines (2 - Td or Tdap)DTaP,Tdap and Td Vaccines (2 - Td or Tdap)[facility]: 32-64-6804Qchqe microalbumin profileDTaP,Tdap,Td Vaccine (2 - Td or Tdap) [facility]: 59-51-4245Vkgikwgz ScreeningDiabetes ScreeningOhioHealth Van Wert Hospitaltart: 67-76-9355Xmljx 1996 panel - Serum or PlasmaLipid Screening [facility]tart: 47-28-6289Vhasu panelLipid ScreeningMarietta Osteopathic Clinic Start: 29-07-2595XHHZU SCREENLIPID SCREENOhioHealth Van Wert Hospitaltart: 61-80-0049BUEYE SCREENLIPID SCREENOhioHealth Van Wert Hospitaltart: 16-49-5675WHTZK SCREENLIPID SCREEN [facility]tart: 38-62-3329Soifhtmjpw ScreeningDepression Screening [facility]art: 42-70-1337Fqeojgy ScreeningTobacco Screening [facility]: 29-65-2575Wgdvb BMI ScreeningAdult BMI Screening [facility]tart: 91-79-8200Qllpguucnb ScreeningDepression Screening [facility]tart: 90-46-8479Cchpowr ScreeningTobacco Screening [facility] ChatStattart: 42-01-6890Owseuiq ScreeningTobacco Screening [facility] ChatStattart: 70-91-0857Jthjt BMI ScreeningAdult BMI Screening [facility] SystemStart: 40-83-1732Wdjromz ScreeningTobacco Screening [facility] SystemStart: 03-02-2026 End: 56-79-0579Tfeievk encounter oiklvkqmx19/15/2026 4:20 PM EDT Office Visit Neurology [address] [place] [address] Drew Castellanos MD [address] [address] Yearly In person medicationNeurologyComment on above: Yearly In person medicationStart: 67-63-0804Ewpoxwwdgu ScreeningDepression ScreeningProMedica Health SystemStart: 38-52-0151Emqyekw ScreeningTobacco ScreeningProMedica Health SystemStart: 10-99-6521Tbawxsjrg for malignant neoplasm of colonOhioHealth Van Wert Hospitaltart: 11-24-2025 End: 61-07-4370Rlwonsjyaklv consultation with hmljunm4911/24/2025 10:40 AM EST Telemedicine [facility] [address] [place] [address] Jeff Patel APRN-CNP [address] [place] [address] [facility] MedicineStart: 10-29-2025 End: 94-03-2692LI Chest WO contrastCT chest without contrast Imaging Routine Lung nodule Expected: 10/29/2025 (Approximate), Expires: 06/29/2026[facility] Work Phone: Comment on above:Expected: 10/29/2025 (Approximate), Expires: 06/29/2026Start: 10-25-2025 End: 86-06-4541Rjdxqrw encounter kpryvvcfn32/08/2025 3:20 PM EST Office Visit Neurology [address] [place], [place] [id number] Palomo Davalos MD [address] [place] [address] botoxNeurologyComment on above:botoxStart: 21-20-6508Wacsf BMI Screening Adult BMI ScreeningProDayton Va Medical Center SystemStart: 13-33-0982Nqwaboavcg Screening Depression ScreeningProDayton Va Medical Center SystemStart: 81-23-1959Dzirjwq Screening Tobacco ScreeningProDayton Va Medical Center SystemStart: 10-06-2025 End: 44-81-4491FE Chest WO contrastCT chest without contrast Imaging Routine Lung nodules Expected: 10/06/2025 (Approximate), Expires:07/06/2026[facility] Work Phone: Comment on above:Expected: 10/06/2025 (Approximate), Expires: 07/06/2026Start: 09-27-2025 End: 72-36-4993nlubgkulpv17/10/2025 3:00 PM EST [facility]OLOGY [address] [facility] [place] [address] Dariana Stockton, SAP PAYROLL CONSULTANT.LEAD FABRICATOR [address] [facility] [place] [address] 3 mos. FU medicationNEUROLOGYComment on above:3 mos. FU medicationStart: 09-14-2025 End: 70-49-8755HGW Breast - bilateral screeningBilateral screening mammogram with tomosynthesis Imaging Routine Encounter for screening mammogram for malignant neoplasm of breast Expected: 09/14/2025, Expires: 11/22/2025NOND HealthcareComment on above:Expected: 09/14/2025, Expires: 11/22/2025Start: 39-48-9048Jmivzbbee for malignant neoplasm of breastMammogramNOND Healthcare Start: 09-11-2025 End: 07-50-0875IOU Breast - bilateral screeningMammography screening bilateral with CAD Imaging Routine Encounter for screening mammogram for malignant neoplasm of breast Expected: 09/11/2025, Expires: 05/19/2026[facility] Work Phone: Comment on above:Expected: 09/11/2025, Expires: 05/19/2026Start: 08-30-2025 End: 89-99-1706Qdylvtzgrhme consultation with yqchvqx5208/30/2025 2:40 PM EDT Telemedicine [facility] [address] [place] [address] [place] [phone] Nabil Villavicencio, SAP PAYROLL CONSULTANT-LEAD FABRICATOR [address] [place], [place] [id number] [facility] MedicineStart: 07-26-2025 End: 96-20-7416Vommiqi encounter nwqfzrpid53/08/2025 2:40 PM EDT Office Visit Neurology [address] [place], [place] [id number] Palomo Davalos MD [address] [place] [address] botoxNeurologyComment on above:botoxStart: 18-03-3405LILPD-19 Vaccine ( season)COVID-19 Vaccine ( season)[facility] Start: 47-47-6714Jyrtsomhd vaccinationFlower Hospital SystemStart: 07-13-2025 End: 24-50-6081Frkmcr-up nozlsegdp70/26/2025 10:00 AM EDT [facility] NEUROLOGY [address] [facility] [address] [place] [address] Dariana Stockton, SAP PAYROLL CONSULTANT.LEAD FABRICATOR [address] [facility] [address] [place] [address] 3 Month Follow UpNEUROLOGYComment on above:3 Month Follow UpStart: 07-01-2025 End: 85-33-0970CF AbdomenUltrasound abdomen complete Imaging Routine Generalized abdominal pain Nausea and vomiting, unspecified vomiting type Right upper quadrant pain Expected: 07/01/2025, Expires: 07/01/2026[facility] Work Phone: Comment on above:Expected: 07/01/2025, Expires: 07/01/2026Start: 06-23-2025 End: 18-40-5882Dlmosyy encounter procedureG[facility]ison [facility] Rad[facility] CT ScanComment on above:Acute diverticulitis [K57.92]Start: 39-54-0572TFNDH SCREENLIPID SCREEN [facility]tart: 05-31-2025 End: 47-00-8656Upyllcz encounter aixmcriol39/14/2025 4:00 PM EDT Office Visit Neurology [address] [place] [address] Palomo Davalos MD [address] [place] [address] BotoxNeurologyComment on above:BotoxStart: 78-93-8765IH Cervical spine WO contrastTriHealth McCullough-Hyde Memorial Hospitaltart: 95-76-7406DO lumbar spine wo con MR lumbar spine wo [facility] Hospitaltart: 91-29-5335SL Lumbar spine WO contrastTriHealth McCullough-Hyde Memorial Hospitaltart: 32-08-9501IJW of cervical spine without contrastMR cervical spine wo [facility] Hospitaltart: 79-98-7312FD pre/post mri xrayXR pre/post mri xrayTriHealth McCullough-Hyde Memorial Hospitaltart: 87-20-5777EolyjxxkxTriHealth McCullough-Hyde Memorial Hospitaltart: 05-19-2025 End: 90-02-5060Zbnnnel encounter vhidujcxd17/02/2025 4:00 PM EDT Office Visit [facility] [address] [place] [phone] Jeff Patel APRN-CNP [address] [place] [address], [place] [address] [facility] MedicineStart: 05-19-2025 End: 26-38-8031JM Abdomen and Pelvis WO contrastCT abdomen and pelvis without contrast Imaging Routine Liver lesion Non-alcoholic fatty liver disease Expected: 05/19/2025, Expires: 05/19/2026[facility] Health SystemComment on above:Expected: 05/19/2025, Expires: 05/19/2026Start: 05-19-2025 End: 62-45-0116MY Chest for screening WO contrastCT low dose lung screening (Annual) Imaging Routine Former smoker Encounter for screening for malignant neoplasm of lung in former smoker who quit in past 15 years with 20 pack year history or greater Expected: 05/19/2025, Expires: 05/19/2026[facility] SystemComment on above:Expected: 05/19/2025, Expires: 05/19/2026Start: 04-26-2025 End: 39-97-8305Bylrefp encounter rasyxzgqp68/09/2025 4:00 PM EDT Office Visit Neurology [address] [place], [place] [address] Palomo Davalos MD [address] [place] [address] BotoxNeurologyComment on above:BotoxStart: 04-19-2025 End: 27-39-6474Oteymitabdpb consultation with cgvrtay5104/19/2025 2:40 PM EDT Telemedicine [facility] [address] [place] [address] [place] [address] Jeff Patel APRN-LEAD FABRICATOR [address] [place] [address] [facility] MedicineStart: 04-19-2025 End: 44-73-3548YO Cervical spine WO contrastMR cervical spine without contrast Imaging Routine Fibromyalgia Cervical radiculopathy Expected: 04/19/2025, Expires: 04/19/2026[facility] Work Phone: Comment on above:Expected: 04/19/2025, Expires: 04/19/2026Start: 04-19-2025 End: 21-49-5121MU Lumbar spine WO contrastMR lumbar spine without contrast Imaging Routine Fibromyalgia Chronic midline low back pain with bilateral sciatica Expected: 04/19/2025, Expires: 04/19/2026[facility] Health SystemComment on above:Expected: 04/19/2025, Expires: 04/19/2026Start: 04-09-2025 End: 65-74-7465Svrmuz-up encounterNeurologyComment on above:Follow up Narcolepsy/MedsStart: 03-15-2025 End: 04-07-0964Inguvsq encounter scsfqhirz89/28/2025 4:00 PM EDT Office Visit Neurology [address] [facility] [place], [place] [id number] Palomo Davalos MD [address] [place] [address] BOTOXNeurologyComment on above:BOTOXStart: 88-96-9939XAXYGUIW SCREEN DIABETES SCREENOhioHealth Van Wert Hospitaltart: 12-19-1733Bdmghznx ScreeningDiabetes ScreeningOhioHealth Van Wert Hospitaltart: 47-63-3497Nicsaikyyzwz myocardial perfusion stress studyNM kj perf SPECT rest & strTriHealth McCullough-Hyde Memorial Hospitaltart: 37-73-0598Jvqme volume recorder plethysmographyProvidence Hospital Start: 57-63-9064Vnuqudr ultrasonography of bilateral carotid arteriesUS carotid doppler [facility] Centertart: 20-17-7739ES.doppler Carotid arteries - Centervilletart: 01-14-2025 End: 71-38-7514Mekysezjrtxp consultation with lxjlibi2601/14/2025 2:40 PM EST Telemedicine [facility] [address] [place] [address] Jeff Patel APRN-LAURI [address] [place] [address], [place] [address] [facility] MedicineStart: 01-13-2025 End: 40-10-4266Nnexdwg encounter wxjuoilop69/26/2025 4:20 PM EST Office Visit Neurology [address] [place] [address] Drew Castellanos MD [address] [facility] [address] [place] [address] YEARLY W/MEDSNeurologyComment on above:YEARLY W/MEDS Start: 12-28-2024 End: 96-38-4336ZOQ BY IFA SCREENANA BY IFA SCREEN Lab Routine Tingling Burning sensation Expected: 12/28/2024, Expires: 03/29/2025leveland ClinicComment on above:Expected: 12/28/2024, Expires: 03/29/2025Start: 12-28-2024 End: 69-62-6611CTT W Auto Differential panel - BloodCOMPLETE BLOOD COUNT AND DIFFERENTIAL Lab Routine Tingling Burning sensation Expected: 12/28/2024, E xpires: 03/29/2025[facility] Work Phone: Comment on above:Expected: 12/28/2024, Expires: 03/29/2025Start: 12-28-2024 End: 43-52-6978Jrqrzdmvz (Vitamin B12) [Mass/volume] in Serum or PlasmaVITAMIN B12 Lab Routine Tingling Burning sensation Expected: 12/28/2024, Expires: 03/29/2025[facility] ClinicComment on above:Expected: 12/28/2024, Expires: 03/29/2025Start: 12-28-2024 End: 68-56-4534Rzhwdskrztgsj metabolic 2000 panel - Serum or PlasmaCOMPREHENSIVE METABOLIC PANEL Lab Routine Tingling Burning sensation Expected: 12/28/2024, Expires:03/29/2025[facility] ClinicComment on above:Expected: 12/28/2024, Expires: 03/29/2025Start: 12-28-2024 End: 38-05-4641Rhoaoekphvm nuclear Ab panel - SerumANTI LESA ID Lab Routine Tingling Burning sensation Expected: 12/28/2024, Expires: 03/29/2025[facility] ClinicComment on above:Expected: 12/28/2024, Expires: 03/29/2025Start: 12-28-2024 End: 52-92-9039Cdnlkhixdk A1c in BloodHEMOGLOBIN A1C Lab Routine Tingling Burning sensation Expected: 12/28/2024, Ex[facility]: [facility] Comment on above:Expected: 12/28/2024, Expires: 03/29/2025Start: 12-28-2024 End: 86-71-2119BFAY ELECT SERUM WITH TOI AND INTERPPROT ELECT SERUM WITH TOI AND INTERP Lab Routine Tingling Burning sensation Expected: 12/28/2024, Expires: 03/29/2025[facility] ClinicComment on above:Expected: 12/28/2024, Expires: 03/29/2025Start: 12-28-2024 End: 50-06-7192Jbsrndwteoo [Units/volume] in Serum or PlasmaTHYROID STIMULATING HORMONE Lab Routine Tingling Burning sensation Expected: 12/28/2024, Expires: leveland ClinicComment on above:Expected: 12/28/2024, Expires: 03/29/2025Start: 12-26-2024 End: 28-51-4726kdqdjmosdu82/08/2025 4:00 PM EST [facility] [address] [place] [address] Francis Garcia MD [address] [place] [address] F/UNeurologyComment on above:F/UStart: 12-21-2024 End: 31-25-7661Cvbtaul encounter lvshiuaau85/03/2025 2:40 PM EST Office Visit Neurology [address] [place] [address] Palomo Davalos MD [address] [place] [address] BOTOXNeurologyComment on above:BOTOXStart: 89-39-7486VynpugxvrTriHealth McCullough-Hyde Memorial Hospitaltart: 93-39-7326Ajlskwpn measurementTriHealth McCullough-Hyde Memorial Hospitaltart: 29-26-2170Zvjzjhpdw complement CH50 [facility] CenterStart: 58-83-6587RmhzmqrwwBucyrus Community Hospital CenterStart: 11-18-2024 Medicare Advantage Annual Wellness VisitMer[facility] Hospitalcare Advantage Annual Wellness Visit [facility]: 10-09-2024 End: 63-57-9275Xqjmij-up encounterNeurologyComment on above:narcolepsy follow up Start: 10-06-2024 End: 08-43-9666usdmqcfbxq30/19/2024 6:00 PM EST [facility] Neurology [address] [place] [address] Dariana Stockton APRN.[facility] [address] [place] [address] f/u w/medsNeurologyComment on above:f/u w/medsStart: 09-28-2024 End: 55-38-7174Xqdvtcf encounter utrgajufl58/11/2024 3:20 PM EST Office Visit [facility] [address] [place] [address] Azra Agarwal PA [address] [place] [address] [facility] DERMStart: 09-23-2024 End: 03-27-9601Hgjzyiy encounter ednmdqzit64/06/2024 12:30 PM EST Office Visit [facility] OB [address] [place] [address] Tu Flores MD [address] [place] [address] [facility] OBStart: 09-21-2024 End: 24-57-3158Dcbvukq encounter procedureNeurologyComment on above:botoxStart: 32-70-6238Oadgqscbj for malignant neoplasm of breastMammogramNOMS Healthcare Start: 08-31-2024 End: 13-78-6124Kmszage encounter cwgpisfcs37/14/2024 4:15 PM EDT Office Visit [facility] PODIAT[facility] [address] [place] [phone] Aki Peoples DPM [address] [place] [address] [facility] PODIATRYStart: 08-17-2024 End: 60-84-5900Frlmxoj encounter raxdnzfqt13/30/2024 3:45 PM EDT Office Visit General Surgery [address] [facility] [address] [place] [address] Cristina Green DO [address] [place] [address] post op herniaGeneral SurgeryComment on above:post op hernia Start: 07-30-2024 End: 57-68-9049Ikmnjgvvf to same day [facility] Surgical ServicesComment on above:REPAIR INITIAL INGUINAL HERNIA = OR > AGE 7 REDUCIBLE PRICILLA APPROACH WITH MESHStart: 07-30-2024 End: 99-84-0092Xsy 1st ingun hrna age 7 yrs/> reducibleEU ORStart: 07-30-2024 Subsequent [facility] Surgical ServicesComment on above:Right inguinal hernia [K40.90]Start: 59-05-5481Dgiqa-19 Vaccine ( season)Covid-19 Vaccine ( season)[facility]: 19-06-8264Avwkr-19 Vaccine ( season)Covid-19 Vaccine ( season)[facility]: 54-36-7485Eneoyckqh vaccinationMarietta Osteopathic Clinic Start: 07-09-2024 End: 05-09-3980kxyelprgto44/22/2024 6:00 PM EDT [facility] Neurology [address] [place] [address] Dariana Stockton APRN.[employer] [address] [place] [address] f/u w/medsNeurologyComment on above:f/u w/medsStart: 07-03-2024 End: 31-99-7176Sdxfcyi encounter cpyubvxja49/16/2024 3:15 PM EDT Office Visit General Surgery [address] [facility] [place] [address] Norma DO Cristina [address] [facility] [address] [place] [address] Inguinal hernia/reschedule from 06/29/24General Surgery Comment on above:Inguinal hernia/reschedule from 06/29/24Start: 06-29-2024 End: 99-28-6169Rnzcyhh encounter procedureNeurologyComment on above:botoxIng herniaStart: 06-10-2024 End: 57-78-6243Cssyhqo encounter vwbxnpgyh04/24/2024 3:30 PM EDT Office Visit Otolaryngology [address] [address] Siena Wu PA-C [address] [place] [address] Ear infection f/u, pain, pressure, drainage remain OtolaryngologyComment on above:Ear infection f/u, pain, pressure, drainage remainStart: 05-29-2024 End: 48-86-9041Dzxnddmrb to same day surgery eslmcu3305/29/2024 8:15 AM EDT - 05/29/2024 9:15 AM EDT Surgery [address] [place] [address] [place] [address] [place] [address] HEMORRHOIDECTOMY INTERNAL TRANSANAL HEMORRHOIDAL DEARTERIALIZATION, 2 OR MORE HEMORRHOID COLUMNS/GROUPS INCL ULTRASOUND GUIDANCE W/MUCOPEXY WHEN PERFORMEDFaMadison Community HospitalComment on above:HEMORRHOIDECTOMY INTERNAL TRANSANAL HEMORRHOIDAL DEARTERIALIZATION, 2 OR MORE HEMORRHOID COLUMNS/GROUPS INCL ULTRASOUND GUIDANCE W/MUCOPEXY WHEN PERFORMEDStart: 05-29-2024 End: 58-64-4110Dhggqbqumd xppfydgutlwo06/12/2024 8:15 AM EDT Anesthesia Event [facility] [address] [place] [address] [place] [address] [place] [address] [facility]ertart: 05-29-2024 End: 30-93-0740Prm hrhc transanal hroid dartlzj 2+ w/us gdnHEMORRHOIDECTOMY INTERNAL TRANSANAL HEMORRHOIDAL DEARTERIALIZATION, 2 OR MORE HEMORRHOID COLUMNS/GROUPS INCL ULTRASOUND GUIDANCE W/MUCOPEXY WHEN PERFORMED Hemorrhoids, unspecified hemorrhoid type 05/29/2024 8:15 AM EDTFV ASC COLUMBIAStart: 59-76-0487Letvokbyzz hospital visit by auwjozgkf81/12/2024 8:15 AM EDT Hospital Encounter [facility] [address] [place] [address] [place] [address] [place] [address] Hemorrhoids, unspecified hemorrhoid type [K64.9][facility] CenterComment on above:Hemorrhoids, unspecified hemorrhoid type [K64.9]Start: 05-28-2024 End: 99-04-1364Qemkrbkula vqwgxspyrllb07/11/2024 11:20 AM EDT PAT Pre Anesthesia [address] [facility] [address] [place] [phone] Virtual pacc/ph [phone] AnesthesiaComment on above:Virtual pacc/ph [phone] Start: 05-26-2024 End: 55-38-7646Pifrmlo encounter jdticurqg19/09/2024 9:20 AM EDT Office Visit Colorectal Surgery [address] [place], [place] [address] [place] [address] [place] [address] discuss surgical options for her hemorrhoids and for an exam. Colorectal SurgeryComment on above:discuss surgical options for her hemorrhoids and for an exam.Start: 04-09-2024 End: 31-08-7162jzeatntbns58/23/2024 5:00 PM EDT [facility] Neurology [address] [place] [address] Dariana Stockton APRN.[employer]IC[employer] [address] [place] [address] f/u w/medsNeurologyComment on above:f/u w/medsStart: 01-02-2024 End: 64-93-7123AVH COMPLETEECG COMPLETE ECG Routine Narcolepsy with cataplexy Long-term current use of stimulant Expected: 01/02/2024 (Approximate), Expires: 10/02/2024[facility] Work Phone: comment on above:Expected: 01/02/2024 (Approximate), Expires: 10/02/2024Start: 01-02-2024 End: 14-70-0642VAQ SCREEN ROUT URTOX SCREEN ROUT UR Lab Routine Long-term current use of stimulant Expected: 01/02/2024 (Approximate), Expires: 04/02/2024 [facility] Work Phone: comment on above:Expected: 01/02/2024 (Approximate), Expires: 04/02/2024Start: 30-86-9508Mhwatviufs Health ScreeningBehavioral Health ScreeningOhioHealth Van Wert Hospitaltart: 51-64-0654Hwaytgthey AssessmentDepression AssessmentCleMercy Health St. Vincent Medical Centertart: 98-22-3258Lrohykpot for malignant neoplasm of breastMammogram ScreeningOhioHealth Van Wert Hospitaltart: 22-20-4207Evfgy-19 Vaccine ()Covid-19 Vaccine ()[facility]: 93-72-2010Pozxpzjql vaccinationOhioHealth Van Wert Hospitaltart: 48-16-1813Abzbr depression screening assessmentDEPRESSION SCREENINGOhioHealth Van Wert Hospitaltart: 06-22-2023 Computed tomography of abdomen and pelvis with contrastCT abdomen pelvis w con [facility] Hospitaltart: 65-42-5118WF Abdomen and Pelvis W contrast [facility]: 50-42-8888Zqjed depression screening assessmentDEPRESSION SCREENINGOhioHealth Van Wert Hospitaltart: 12-03-2022 End: 73-19-6863KcpfogybrTriHealth McCullough-Hyde Memorial Hospitaltart: 11-20-2022 End: 24-54-2194Bklkyfifkvb [Units/volume] in Serum or PlasmaTSH BLD Lab Routine Hypothyroidism, unspecified type Expected: 11/20/2022, Expires: 01/20/2023 [facility] Work Phone: comment on above:Expected: 11/20/2022, Expires: 01/20/2023Start: 11-20-2022 End: 68-11-2293Lsuenpohh (T4) free [Mass/volume] in Serum or PlasmaT4 FREE/FREE THYROX Lab Routine Hypothyroidism, unspecified type Expected: 11/20/2022, Expires: 01/20/2023[facility] Work Phone: comment on above:Expected: 11/20/2022, Expires: 01/20/2023Start: 11-20-2022 End: 18-59-5481Ffbvjnsirhqvtqbc (T3) [Mass/volume] in Serum or PlasmaT3 BLD Lab Routine Hypothyroidism, unspecified type Expected: 11/20/2022, Expires: 01/20/2023[facility] Work Phone: comment on above:Expected: 11/20/2022, Expires: 01/20/2023Start: 18-32-9022YULZURTNGS ASSESSMENTDEPRESSION ASSESSMENTOhioHealth Van Wert Hospitaltart: 10-19-2022 End: 36-11-5946LWQYGVT PEROXIDASE ANTIBODY BLOODUc Medical Center Work Phone: comment on above:Expected: 10/19/2022, Expires: 12/19/2022Start: 10-19-2022 End: 25-73-3320Nkjraoejfhy [Units/volume] in Serum or PlasmaUc Medical Center Work Phone: comvjqk on above:Expected: 10/19/2022, Expires: 12/19/2022Start: 10-19-2022 End: 99-61-3374Enrfnpfmh (T4) free [Mass/volume] in Serum or [facility] Work Phone: comment on above:Expected: 10/19/2022, Expires: 12/19/2022Start: 10-19-2022 End: 10-43-9824Hyycnshvhmklefqr (T3) [Mass/volume] in Serum or PlasmaUc Medical Center Work Phone: comsepy on above:Expected: 10/19/2022, Expires: 12/19/2022Start: 08-08-2022 End: 96-71-3656Nsvzt 1996 panel - Serum or PlasmaLIPID PANEL BASIC Lab Routine Hyperlipidemia, unspecified hyperlipidemia type Expected: 08/08/2022,Expires: 10/08/2022[facility] Work Phone: comzkzv on above:Expected: 08/08/2022, Expires: 10/08/2022tart: 08-08-2022 End: 79-92-9761IJSGXZPHC BLDPOTASSIUM BLD Lab Routine Hyperlipidemia, unspecified hyperlipidemia type Expected: 08/08/2022, Expires: 10/08/2022 [facility] Work Phone: comlhre on above:Expected: 08/08/2022, Expires: 10/08/2022tart: 08-08-2022 End: 87-62-2206Emtqsjkfivd [Units/volume] in Serum or PlasmaTSH BLD Lab Routine Unspecified hypothyroidism Expected: 08/08/2022, Expires: [address] [place] [address] Work Phone: comment on above:Expected: 08/08/2022, Expires: 10/08/2022tart: 08-08-2022 End: 69-10-2783Wexldwhth (T4) free [Mass/volume] in Serum or PlasmaT4 FREE/FREE THYROX Lab Routine Unspecified hypothyroidism Expected: 08/08/2022, Expires: 10/08/2022[facility] Work Phone: comment on above:Expected: 08/08/2022, Expires: 10/08/2022tart: 37-01-3827Guggudmat vaccinationOhioHealth Van Wert Hospitaltart: 27-57-5842Qobgg depression screening assessmentDEPRESSION SCREENINGOhioHealth Van Wert Hospitaltart: 43-85-8708VRWWA-19 VACCINE (4 - Booster for Moderna series)COVID-19 VACCINE (4 - Booster for Moderna series)[facility]: 2022 Pneumococcal Vaccine: 50+ (1 of 1 - PCV)Pneumococcal Vaccine: 50+ (1 of 1 - PCV) [facility]: 14-19-7744ZKNSAIKJ VACCINE (1 of 2)SHINGRIX VACCINE (1 of 2)[facility]: 03-20-2022 End: 35-00-7521Dqgzroi aminotransferase [Enzymatic activity/volume] in Serum or PlasmaALT/SGPT Lab Routine Hyperlipidemia, unspecified hyperlipidemia type Expected: 03/20/2022, Expires:05/20/2022[facility] Work Phone: Comment on above:Expected: 03/20/2022, Expires: 05/20/2022tart: 03-20-2022 End: 82-07-5108MKCXK PANEL BASICLIPID PANEL BASIC Lab Routine Hyperlipidemia, unspecified hyperlipidemia type Expected: 03/20/2022,Expires: 05/20/2022 [facility] Work Phone: Comment on above:Expected: 03/20/2022, Expires: 05/20/2022tart: 02-16-2022 End: 08-72-1243HLOFP PANEL BASICUc Medical Center Work Phone: Comment on above:Expected: 02/16/2022, Expires: 04/18/2022tart: 02-16-2022 End: 23-50-8227H2 FREE/FREE THYROXCRiverview Health Institute Work Phone: Comment on above:Expected: 02/16/2022, Expires: 04/18/2022tart: 02-16-2022 End: 23-85-8853Fkfqdraigve [Units/volume] in Serum or PlasmaUc Medical Center Work Phone: Comment on above:Expected: 02/16/2022, Expires: 2Start: 02-16-2022 End: 50-32-3441EEKHLOF D 25 HYDROXYUc Medical Center Work Phone: Comment on above:Expected: 02/16/2022, Expires: 04/18/2022tart: 49-51-4313YZEMZLWZFR CANCER SCREENINGCOLORECTAL CANCER SCREENINGOhioHealth Van Wert Hospitaltart: 98-83-3431Lrvqzfzyi for malignant neoplasm of colonOhioHealth Van Wert Hospitaltart: 87-52-7645MOUBNIWNUEJCQTGPWJRSRLUTMSEofihqzpr Clinic Start: 30-34-5254TYMGYZVWIL ASSESSMENTDEPRESSION ASSESSMENTMarietta Osteopathic Clinic Start: 17-77-6416HGANS-19 VACCINE (4 - Booster for Moderna series)COVID-19 VACCINE (4 - Booster for Moderna series)[facility]: 07-19-2019 Influenza vaccinationFlu vaccine (#1)[facility]: 10-63-7978Vkcokd Wellness Visit (AWV)Annual Wellness Visit (AWV)[facility]: 80-27-1235IYW testingTS testingMcKitrick Hospital: 04-51-0240DPPITDYVN (FIT-DNA)COLOGUARD (FIT-DNA)[facility]: 42-25-3263Wluluoukmcl COLONOSCOPYOhioHealth Van Wert Hospitaltart: 84-56-4542XP COLONOGRAPHYCT COLONOGRAPHY [facility]: 38-45-4884AYNAP OCCULT BLOODFECAL OCCULT BLOODOhioHealth Van Wert Hospitaltart: 17-63-0981Qfyhpoqkk for malignant neoplasm of colonMarietta Osteopathic Clinic Start: 71-07-7643DelatsywtpjCtknpmeie ClinicStart: 89-88-8176Wzdmyiocl for malignant neoplasm of breastMammogram ScreeningOhioHealth Van Wert Hospitaltart: 2002 HPV TESTINGHPV TESTINGOhioHealth Van Wert Hospitaltart: 12-51-1008Xferdlqgz for malignant neoplasm of cervixOhioHealth Van Wert Hospitaltart: 76-17-3768Fksetqkb cancer screen Cervical cancer screenMcKitrick Hospital: 65-83-1951QOJ TESTINGPAP TESTINGOhioHealth Van Wert Hospitaltart: 25-11-3271Jbaemvlhc for malignant neoplasm of cervixOhioHealth Van Wert Hospitaltart: 79-70-5730OEbL/Tdap/Td vaccine (1 - Tdap) DTaP/Tdap/Td vaccine (1 - Tdap)[facility]: 59-05-2616Ooyqqpoqy B Vaccine (1 of 3 - 19+ 3-dose series)Hepatitis B Vaccine (1 of 3 - 19+ 3-dose series)[facility]: 88-10-6558Atbnd microalbumin profileOhioHealth Van Wert Hospitaltart: 85-37-5628Chkbq BMI Follow Up PlanAdult BMI Follow Up [facility]estart: 45-74-3819FWAHMP PCP TEAM CHRONIC DISEASE VISITANNUAL PCP TEAM CHRONIC DISEASE VISITOhioHealth Van Wert Hospitaltart: 57-71-3832Tocjjyh Screening Anxiety ScreeningOhioHealth Van Wert Hospitaltart: 55-57-5178Kfalxcapxz ScreeningDepression ScreeningOhioHealth Van Wert Hospitaltart: 35-99-6550BJXOEJFMB C SCREENINGHEPATITIS C SCREENINGOhioHealth Van Wert Hospitaltart: 05-89-0697Eqistvhcm C screeningHepatitis C ScreeningOhioHealth Van Wert Hospitaltart: 95-86-8922YMG SCREENINGHIV SCREENINGOhioHealth Van Wert Hospitaltart: 82-10-1592BOY screeningHIV ScreeningOhioHealth Van Wert Hospitaltart: 51-90-9243VNR screenHIV screenArchie, [place]Start: 46-19-9459Sghum screen Lipid screenMcKitrick Hospital: 84-95-6407GUERVSCUU B (1 of 3 - 3-dose series)HEPATITIS B (1 of 3 - 3-dose series)[facility]: 1972 Hepatitis B Vaccine (1 of 3 - 3-dose series)Hepatitis B Vaccine (1 of 3 - 3-dose series)[facility]: 56-31-0411Cbniuxean for malignant neoplasm of colonNOMS Healthcare End: 59-14-3765Uunflclq identified in Sputum by Respiratory cultureSputum culture Microbiology Routine Chronic cough 1 Occurrences starting 11/21/2024 until 11/21/2025[facility] Work Phone: Comment on above:1 Occurrences starting 11/21/2024 until 11/21/2025hromatin Ab [Units/volume] in Serum or [facility] CampusComplement C3 [Mass/volume] in Serum or [facility] CampusComplement C4 [Mass/volume] in Serum or [facility] End: 50-66-1636MC Abdomen and Pelvis W contrast IVCT ABD/PEL W IVCON Radiology Routine Acute diverticulitis 1 Occurrences starting 06/08/2025 until 07/08/2026 [facility] Work Phone: Comment on above:1 Occurrences starting 06/08/2025 until 07/08/2026HLA-B27 [Presence] by EVERETTE with probe detectionProvidence HospitalHomogenous nuclear Ab pattern [Titer] in SerumProvidence HospitalNuclear Ab [Titer] in [facility] Patient EducationDiverticulitisBucyrus Community Hospital Ctr Work Phone: Patient referralBucyrus Community Hospital Ctr Work Phone: End: 24-29-7650FUI THORACIC OUTLET [facility] LABPVR THORACIC OUTLET [facility] Vascular Lab Routine TOS (thoracic outlet syndrome) 1 Occurrences starting 01/25/2023 until 01/26/2024[facility] Work Phone: Comment on above:1 Occurrences starting 01/25/2023 until 01/26/2024SENDOUT TEST MISCELLANEOUS LABCORPSENDOUT TEST MISCELLANEOUS [facility] Lab Routine Screening for malignant neoplasm of cervix Encounterfor gynecological examination without abnormal finding Ordered: 09/23/2024[facility] Work Phone: comment on above:Ordered: 09/23/2024US Abdomen Ultrasound abdomen complete Imaging Routine Generalized abdominal pain Nausea and vomiting, unspecified vomiting type Right upper quadrant pain 07/02/2025 3:30 PM EDTProMedica Health SystemCleveland ClinicC[facility] ClinicJoint [facility] Immunizations Immunization DateImmunizationNotesNemours [facility], [place] QhlzwdkgUlkfhdwu44-95-9408umqhzzdiv virus vaccine, unspecified formulationJeff HOUSE Work Phone: [facility] HospitalMmgbfh07-81-8022vimjolrkm virus vaccine, unspecified formulationEster Cali MD Work Phone: [facility] Payers DatePayer CategoryPayerPolicy [id number]-krl [id number] 2024Medicare (Managed Care)[facility] [id number] 2024MedicareMedicare HMODEVOTED HEALTH MEDICARE ADVANTAGE Member Subscriber Plan / Payer (Effective 2023- Present) Name: Pao Lion Member ID: [id number] Relation to Subscriber: Self Name: Pao Lion SubscriberID: [id number] Payer ID: [id number] (NAIC) Group ID: Not on file Type: Not on file Address: [facility] [id number] [id number] Health InsuranceDEVOTED MEDICARE [id number] [id number] [id number] [id number] BLUE CROSS AND BLUE SHIELD ANTHMIDLAND MEMORIAL HOSPITALO [id number] 2020- [phone] [address] [place] [address] [id number] [id number] MedicareAETNA MEDICARE AETNA MEDICARE ADVANTAGE O xxxxxxxx 2019- [address] [place] [address] Medicarexxxxxxxx [id number] (not Medicare or Medicaid)[facility] .[id number]nwrteMEM [facility] [id number] 2009-Present [phone] [place] [address] [id number] [id number] 2.0.1.790821.3.579.[id number] 2.0.1.758073.3.579.2.15682-33-6019Mgocvmy4712599 2.0.1.451503.3.579.2.154582-92-5941Sgxmhud3551907 2.0.1.140805.3.579.2.680169-62-9018Vobylzg7344838 2.0.1.467190.3.579.2.537688-63-9796Pzfhfzc0664759 2.0.1.439496.3.579.2.5[id number] 2.0.1.260332.3.579.2.550824-14-1784Dscvwjy659435699 2.0.1.332652.3.579.2.53[id number] 2.0.1.063497.3.579.2.111250-87-3198Ueizxki901940495 2.0.1.292257.3.579.2.379146-67-3211Pfpkuks570064535 2..1.700966.3.579.2.423793-72-7530Glhjcpn926212903 2..1.028404.3.579.2.300690-60-3425Jquzjpk112713809 2..1.448606.3.579.2.910651-74-0292Hhzrhjl158403957 2..1.784344.3.579.2.594766-11-7523Csbjasy26071020 2...063004.3.579.2.1286 [id number] [id number] Health [id number] ..1.814962.3.579.2.333Brmeyhc64741573 2..1.159829.3.579.2.531 Iomyiey78966737 2..1.642863.3.579.2.069Vaybecw14849904 ..1.898447.3.579.2.669Psvvdmo39798170 2..1.302064.3.579.2.531 Ooeidgk30047579 2..1.041333.3.579.2.792Dgytmnm41846342 2..1.678845.3.579.2.966Lursony37917978 2.16.840.1.418178.3.579.2.531 Social History DateTypeDetailFaadair county health systemStart: 09-19-2018 End: 30-71-2083Fsffxiv smoking status NHISFormer smokerOhioHealth Van Wert Hospitaltart: 09-19-2018 End: 55-95-3212Iadadpe intakeNoOhioHealth Van Wert Hospitaltart: 06-24-7005Lgf Assigned At BirthNot on [facility] [place]Start: 09-27-1976 End: 29-55-2667Xndvvwc of tobacco useCurrent smokerOhioHealth Van Wert Hospitaltart: 09-27-1976 End: 46-30-4424Dwwwtjl of tobacco useCigarette SmokerOhioHealth Van Wert Hospitaltart: 12-06-2021 End: 15-76-5182Cubusfc intakeEx-drinker (finding)[facility]: 07-25-2021 End: 57-66-5205Okfyyyob to SARS-CoV-2 (event)Not sureOhioHealth Van Wert Hospitaltart: 10-29-2013 End: 26-41-3271Hewzwdtufw smoked current (pack per day) - Maskjezg7Uolxagfvt ClinicStart: 10-29-2013 End: 65-96-0813Yzwthqj use and exposureSmokeless tobacco non-userOhioHealth Van Wert Hospitaltart: 30-39-1091Eev Assigned At BirthAv[facility] Health Systemtart: 06-22-2023 End: 26-19-1074Utkucfg smoking status NHISNever smoked tobacco (finding) [facility]: 07-45-5117Hhupb Depression Screening Mesmlkzgrb8Golhaovnc ClinicStart: 08-27-2024 End: 48-37-1936Rtbzihsco beverage intakeLifetime non-drinker (finding)[facility]: [facility] End: 63-94-2580[place] beverage intakeCurrent non-drinker of alcohol (finding) [facility]2015 End: 31-93-2734JprYjmglv (finding)[facility] Medical Equipment Procedure CodeEquipment CodeEquipment Original TextEquipment IdentifierDates Graft Biodesign .6cm .9cm Soft Tissue Repair Otology - [id number] Start: 14-93-7035Zix-Of-A-Kind Implant - [id number]: 12-28-2010 Comment on above:Description: [employer] Implant, 3mm, with abutment, 6mm Xsz-Ii-L-Kind Implant - [id number]: 76-11-5373Ftgdllliup Yaya Titanium Ossicular Implant Ear Hanna - [id number]: 08-18-2018 Mesh Parietene Macroporous 15x7.5cm Surgical - [id number]: 07-30-2024 Functional Status GicbSadlgqtmslVivdddYfygtvnt14-94-9562Owa you deaf, or do you have serious difficulty hearingNo 12/16/2015 3:03 PM Eris Gruber RN [facility] 76-59-4600Ikq you blind, or do you have serious difficulty seeing, even when wearing glassesNo 12/16/2015 3:03 PM Eris Gruber RN [facility] 24-35-1237Aw you have serious difficulty walking or climbing stairsNo 12/16/2015 3:03 PM Eris Gruber RN [facility]01-29-2016Do you have difficulty dressing or bathingNo 12/16/2015 3:03 PM [facility] HospitalXhdbhe16-04-7288Bvphnbf of a physical, mental, or emotional condition, do you have difficulty doing errands alone such as visiting a physician's office or shoppingNo 12/16/2015 3:03 PM Eris Gruber RN [facility] Mental Status [id number] of a physical, mental, or emotional condition, do you have serious difficulty concentrating, remembering, or making decisionsNo 12/16/2015 3:03 PM Eris Gruber RN [facility] Clinical Notes 12-06-2015 to 09-01-2025 Note Date & [id number] Miscellaneous Notes* Telephone Encounter - Joan Bellamy CMA - 09/01/2025 9:05 AM EDT [facility] [place] pharmacy called into office wanting to make [...] provider response, verbalized understanding. documented in this encounterTriHealth Good [facility] HospitalSwing [facility] Swing [facility] [id number] Telephone encounter Note* Telephone Encounter - Joan Bellamy CMA - 09/01/2025 9:05 AM EDT [facility] [place] pharmacy called into office wanting to make sure provider is aware of drug interaction between patients Xywav and pregablin. Stated they are being flagged that she picked up Xywav on 08/06/25. Needing clarification if this medication is okay to fill. Please advise? [facility] [id number] Telephone encounter Note* Telephone Encounter - LACY Mcginnis - 09/01/2025 9:05 AM EDT Pt states she has used both of these medications for many many years, and has never had an interaction. I was aware of this, and pt assured me tolerates well [facility]10-15-2025 Telephone encounter Note* Telephone Encounter - Joan Bellmay CMA - 09/01/2025 9:05 AM EDT Called and informed pharmacy of provider response, verbalized understanding. [facility]10-13-2025 History of Present illness Narrative* LACY Mcginnis - 08/30/2025 2:40 PM EDT Video Visit via Real-time Synchronous Audiovisual Provider Location: [facility] [address] [place] [id number] Patient Location: Patient's home Video Visit Consent [...] that there are some limitations compared to vyqv-op-stzc evaluations. The patient consented to the presence of additional virtual and/or in-person participants. We elected to proceed. Subjective Patient ID: Pao Lion is a 55 y.o. female. CC: follow [...] pharmacy. Also has yearly mammograms done at [facility]. Is due this month. Order was placed [...] will copy Previous mamm order,and fax to [facility] Follow up in 3 months for controlled substance Ila Cedeno was seen today for follow-up. Diagnoses and all orders for this visit: Fibromyalgia - pregabalin (LYRICA) 50 mg capsule; Take 2 capsules (100 mg total) by mouth 3 (three) times a day. Trigeminal neuralgia - pregabalin (LYRICA) 50 mg capsule; Take 2 capsules (100 mg total) by mouth 3 (three) times a day. LACY Mcginnis 08/30/25 [id number] documented in this encounterTriHealth Good Samaritan HospitalSwing by Swing [facility] [id number] Miscellaneous Notes* Telephone Encounter - Martha Main RN - 08/08/2025 9:45 AM EDT Contract: 148 [facility] Pharmacist (Leigha) calling to discuss drug interaction between Baclofen and anothermedication ordered by another provider Called Dr Bennie Hua on his cell phone- to call [facility] Leigha voiced provider will need to call back after 10am when the pharmacy is officially opened and answering the phones * Telephone Encounter - Martha Main RN - 08/08/2025 9:45 AM EDT Contract: 148 Dr Hua called [facility]- information given to DO Per Pharmacy request, he will call them after 10am (when pharmacy opens) documented in this encounterF[facility] Telephone encounter Note* Telephone Encounter - Martha Main RN - 08/08/2025 9:45 AM EDT Contract: 148 [facility] Pharmacist (Leigha) calling to discuss drug interaction between Baclofen and anothermedication ordered by another provider Called Dr Bennie Hua on his cell phone- LM to call [facility] Leigha voiced provider will need to call back after 10am when the pharmacy is officially opened and answering the phones [facility]09-21-2025 Telephone encounter Note* Telephone Encounter - Martha Main RN - 08/08/2025 9:45 AM EDT Contract: 148 Dr Hua called [facility]- information given to DO Per Pharmacy request, he will call them after 10am (when pharmacy opens) [facility]09-09-2025 Telephone encounter Note* Telephone Encounter - Blank Contreras LPN - 07/27/2025 3:28 PM EDT Patient's medication arrived today from [employer] [facility] assistance program. Clarified that medication was for botox treatment done yesterday. Provider will be contacted as patient was billed for treatment. Medication is stored with patient's name in botox refrigerator. Blank Contreras LPN [facility]09-09-2025 Miscellaneous Notes* Telephone Encounter - Blank Contreras LPN - 07/27/2025 3:28 PM EDT Patient's medication arrived today from [employer] [facility] assistance program. Clarified that medication was for botox treatment done yesterday. Provider will be contacted as patient was billed for treatment. Medication is stored with patient's name in botox refrigerator. Blank Contreras LPN * Telephone Encounter - Ruchi Troy - 06/25/2025 4:33 PM EDT Patient last seen on 04/26/25 documented in this encounterMarietta [facility]09-09-2025 Telephone encounter Note * Telephone Encounter - Destiny Pearl RN - 07/27/2025 3:21 PM EDT Received patient assistance medication Botox for injection on 07/27/25. Patient was seen by Dr. Davalos 07/26/25 and received 200 units of Botox from headache Botox stock. Placed Botox received today, 07/27/25 , in - will save for patient's next appointment in October. Please review chart and advise if this is appropriate to do, as well as how is patient going to be charged for Botox received 07/26/25 out of headache stock. Patient sent in multiple messages regardingapproval for patient assistance meds and not being charged for Botox. [facility]09-09-2025 Miscellaneous Notes* Telephone Encounter - Destiny Pearl RN - 07/27/2025 3:21 PM EDT Received patient assistance medication Botox for injection on 07/27/25. Patient was seen by Dr. Davalos 07/26/25 and received 200 units of Botox from headache Botox stock. Placed Botox received today, 07/27/25 , in - will save for patient's next appointment in October. Please review chart and advise if this is appropriate to do, as well as how is patient going to be charged for Botox received 07/26/25 out of headache stock. Patient sent in multiple messages regardingapproval for patient assistance meds and not being charged for Botox. documented in this encounterMarietta [facility] Clinic09-08-2025 NoteHNO ID: [id number] Author: PALOMO DAVALOS MD Service: ? Author Type: Physician Type: Progress Notes Filed: 07/26/2025 14:53 Note Text: Follow-Up Onabotulinum Toxin A (BotoxTM) for Migraine Indication: Chronic Intractable Migraine Referral Expiration: 12/21/2025 Prior to the initiation of the FIRST treatment with Onabotulinum Toxin A, the patient reported the following average headache frequency over the past 3 MONTHS: Number of moderate-severe migraine days/month: 12 Number of mild migraine days/month: 13 Number of headache free days/month: 5 (120 headache-free hours) After treatment with Onabotulinum Toxin A: Number of moderate-severe migraine days/month: 4 Number of mild migraine days/month: 5 Number of headache free days/month: 21 (504 headache-free hours) Patient reduction in overall migraine days: Yes Patient reduction in moderate-severe migraine days: Yes Patient reduction of headache hours by 100 hours or more: Yes (reduction of 384 hours) Individual has obtained clinical benefit deemed significant by individual or prescriber (Y/N): Yes Patient's quality of life and ability to perform ADLs has improved (Y/N): Yes Wearing off: No The patient has been assessed for disorders which could contribute to breathing or swallowing difficulty, and there is no contraindication with PREEMPT Botox. There is no documented allergic reaction/hypersensitivity to any botulinum toxin and there is no active infection at proposed injection site. HEADACHE SCORES: 02/19/2022 05/28/2022 Headache Questions ER visits since last office visit: 0 0 Hospital stays since last office visit 0 0 Limited ADLs in the last month: 8 Days headache pain free in the last month: 22 Days per month with ALL of the following symptoms - decreased productivity, light sensitivity and nausea: 8 Initial improvement of headache after botox injection at last visit: Very much improved Very much improved PRN medication usage in the last month: 8 Patient impression of improvement since last visit: Very much improved Very much improved 02/19/2022 05/28/2022 HIT-6 HIT-6 64 (Severe impact) Incomplete 02/19/2022 MARIA ESTHER - 2/7 SCORES MARIA ESTHER-2 Score 3 MARIA ESTHER-7 Score 5 07/08/2024 10/08/2024 07/12/2025 PHQ-9 Score 3 4 3 3 BP 119/79 Pulse 79 Patient name: Pao Lion : 1970 ALLERGIES Allergen Reactions - Biaxin [Clarithromy* GI Upset - Sutures Rash, Hives, Swelling, Itching Specifically, cat gut sutures - Cymbalta [Duloxetin* Swelling Severe abdominal pain - Demerol [Meperidine* Vomiting - Indomethacin Swelling Had 4+ edema in legs and arms the day after taking a new prescription. - Liquid Bandage (Cya* Rash Dermabond/exofin - Morphine Vomiting - Naproxen GI Upset - Penicillins Rash, Hives Patient can tolerate Augmentin - Vancomycin GI Upset - Versed [Midazolam H* Vomiting - Z Pack [Azithromyci* Rash, GI Upset UNIVERSAL PROTOCOL / SAFETY CHECKLIST Procedure: Onabotulinum toxin A for migraine Informed Consent Consent Obtained: Written [place] Protocol A moment to CARE was completed SIGN IN Personnel directly involved with the procedure wore the appropriate PPE Special Equipment: N/A Patient/Surrogate Stated/Verified: Patient name, Date of , Relevant allergies and Intended procedure TIME OUT No relevant labs, photos, and/or imaging studies were applicable for review. Consent documented and matches the intended procedure No correct side/site applicable for marking and visibility. No medications required for procedure. No fire risk assessment and interventions applicable. No implant(s) inserted. SIGN OUT No specimen collected. Written Consent Obtained: Written Injection Sites Left (Units) Left (Sites) Right (Units) Right (Sites) TOTAL (Units) Used Car Make Ready Worker 5 1 5 1 10 Procerus Units: 5 Sites: 1 5 Frontalis 10 2 10 2 20 Temporalis 45 9 40 8 85 Occipitalis 15 3 15 3 30 Cervical PSP 10 2 10 2 20 Trapezius 15 3 15 3 30 Total Units used: 200 Total Units wasted: 0 Prior Therapies Duration of Use Dose Side effect [facility] History of Present illness Narrative* Palomo Davalos MD - 07/26/2025 2:53 PM EDT Images from the original note were not included. Follow-Up Onabotulinum Toxin A (BotoxTM) for Migraine Indication: Chronic Intractable Migraine Referral Expiration: 12/21/2025 Prior to the initiation of the FIRST treatment with Onabotulinum Toxin A, the patient reported the following average headache frequency over the past 3 MONTHS: Number of moderate-severe migraine days/month: 12 Number of mild migraine days/month: 13 Number of headache free days/month: 5 (120 headache-free hours) After treatment with Onabotulinum Toxin A: Number of moderate-severe migraine days/month: 4 Number of mild migraine days/month: 5 Number of headache free days/month: 21 (504 headache-free hours) Patient reduction in overall migraine days: Yes Patient reduction in moderate-severe migraine days: Yes Patient reduction of headache hours by 100 hours or more: Yes (reduction of 384 hours) Individual has obtained clinical benefit deemed significant by individual or prescriber (Y/N): Yes Patient's quality of life and ability to perform ADLs has improved (Y/N): Yes Wearing off: No The patient has been assessed for disorders which could contribute to breathing or swallowing difficulty, and there is no contraindication with PREEMPT Botox. There is no documented allergic reaction/hypersensitivity to any botulinum toxin and there is no active infection at proposed injection site. HEADACHE SCORES: 02/19/2022 05/28/2022 Headache Questions ER visits since last office visit: 0 0 Hospital stays since last office visit 0 0 Limited ADLs in the last month: 8 Days headache pain free in the last month: 22 Days per month with ALL of the following symptoms - decreased productivity, light sensitivity and nausea: 8 Initial improvement of headache after botox injection at last visit: Very much improved Very much improved PRN medication usage in the last month: 8 Patient impression of improvement since last visit: Very much improved Very much improved 02/19/2022 05/28/2022 HIT-6 HIT-6 64 (Severe impact) Incomplete 02/19/2022 MARIA ESTHER - 2/7 SCORES MARIA ESTHER-2 Score 3 MARIA ESTHER-7 Score 5 07/08/2024 10/08/2024 07/12/2025 PHQ-9 Score 3 4 3 3 BP 119/79 Pulse 79 Patient name: Pao Lion : 1970 ALLERGIES Allergen Reactions Biaxin [Clarithromy* GI Upset Sutures Rash, Hives, Swelling, Itching Specifically, cat gut sutures Cymbalta [Duloxetin* Swelling Severe abdominal pain Demerol [Meperidine* Vomiting Indomethacin Swelling Had 4+ edema in legs and arms the day after taking a new prescription. Liquid Bandage (Cya* Rash Dermabond/exofin Morphine Vomiting Naproxen GI Upset Penicillins Rash, Hives Patient can tolerate Augmentin Vancomycin GI Upset Versed [Midazolam H* Vomiting Z Pack [Azithromyci* Rash, GI Upset UNIVERSAL PROTOCOL / SAFETY CHECKLIST Procedure: Onabotulinum toxin A for migraine Informed Consent Consent Obtained: Written [place] Protocol A moment to CARE was completed SIGN IN Personnel directly involved with the procedure wore the appropriate PPE Special Equipment: N/A Patient/Surrogate Stated/Verified: Patient name, Date of , Relevant allergies and Intended procedure TIME OUT No relevant labs, photos, and/or imaging studies were applicable for review. Consent documented and matches the intended procedure No correct side/site applicable for marking and visibility. No medications required for procedure. No fire risk assessment and interventions applicable. No implant(s) inserted. SIGN OUT No specimen collected. Written Consent Obtained: Written Injection Sites Left (Units) Left (Sites) Right (Units) Right (Sites) TOTAL (Units) Used Car Make Ready Worker 5 1 5 1 10 Procerus Units: 5 Sites: 1 5 Frontalis 10 2 10 2 20 Temporalis 45 9 40 8 85 Occipitalis 15 3 15 3 30 Cervical PSP 10 2 10 2 20 Trapezius 15 3 15 3 30 Total Units used: 200 Total Units wasted: 0 Prior Therapies Duration of Use Dose Side effect Palomo Davalos MD documented in this encounter[address]26-2025 History of Present illness Narrative* Kavon Snider, MAXINE.LEAD FABRICATOR - 07/13/2025 10:30 AM EDT Images from the original note were not included. [facility] Follow up/ Established patient visit Recording using ambient Appiphany software for draft documentation of the visit was discussed with the patient/authorized retail wireless sales representative; all questions welcomed and answered. Patient/authorized retail wireless sales representative agreed to proceed I have communicated my name and active licensure. The patient's identity and physical location wereverified at the time of this visit. 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 Assessment/Plan from last visit: Date of last visit :04/09/2025 Assessment & Plan Diagnosis: 1. 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 Patient is taking Vyvanse 70 mg daily in the morning and Xywav as prescribed. No significant episodes of cataplexy, sleep-related hallucinations, or sleep paralysis reported. No adverse effects from medications. Last in-personvisit was on 01/13/[address] Castellanos. - Continue Vyvanse 70 mg daily; prescription refilled for 90 days with brand name specified, to be filled at [facility]. - Continue Xywav as currently prescribed. - Ordered annual EKG and urine toxicology screen to be completed within the next three months. - Advised patient to avoid CBD products due to potential respiratory depression when combined with Xywav. - Recommended magnesium 200 mg at bedtime for muscle spasms and arthritic pain, to be started afterrecovery from current illness. Plan: Narcolepsy: Medication(s) as ordered. Vyvanse 70 mg as directed (#90/90d), last filled on 02/22/25. Dispense on or after 05/23/25- (90 day supply), insurance pays only for brand name Vyvanse. Transmitted. Xywav 4.5 grams twice per night ($450/30d), last filled on 03/12/25 ECG 12/16/23 NL NSR. Get yearly ECG. Urine tox Screen 12/16/23 (+) Amphetamines. Get yearly Urine Tox Screen. Last in person visit 01/13/[address] Drew Castellanos. Last Sleep MD visit 01/13/[address] Drew Castellanos. Schedule 3 month follow-up visit with YOLANDA or Sleep MD (virtual or in-person). Follow up as discussed. I spent a total of 23 minutes. This was a follow up patient to me on the date of the service which included preparing to see the patient, [id number] patient care, completing clinical documentation,counseling and educating the patient/family/caregiver and ordering medications, tests, or procedures. Recording using 9facts software for draft documentation of the visit was discussed with the patient/authorized retail wireless sales representative; all questions welcomed and answered. Patient/authorized retail wireless sales representative agreed to proceed Dariana Stockton APRN.LEAD FABRICATOR April 09, 2025 6:35 AM Activity Duration Pre-charting 6 minutes Pre-charting 3 minutes Pre-charting 1 minute Chart accessed 23 minutes Total time: 34 minutes CURRENT VISIT: 07/13/2025 INTERVAL HISTORY: 1. Concerns: - Sleep Quality - Patient is a 55-year-old female presenting for a follow-up regarding her sleep quality. - Reports that her sleep has been good with no restless leg symptoms, cataplexy, or sleep paralysis. - Denies experiencing sleepy driving or wanting to fall asleep while driving. - Medication Management - Patient takes Vyvanse in the morning around 08:00-09:00 with no side effects. - Takes Xywav twice at night, with the first dose around midnight, and reports it helps significantly with cataplexy. - Denies experiencing nausea, palpitations, or headaches related to her medications. - Has a history of migraines, which are stable and managed with Botox treatments. - Reports no issues with obtaining medications from the pharmacy, although her insurance only covers the brand name for Vyvanse. HYPERSOMNIA : Narcolepsy Naps: rarely Cataplexy: No Hypnagogic hallucinations: No Dream enactment behaviors: No Sleep related injuries: No Drowsy driving: No Sleep schedule: Bed time: midnight, Wake time: 8am, TST: 8 hours Current medications: OARRS checked: yes Current medications: -Medication: vyvanse 70mg -Timinam -Side effects: none -Benefit: yes -Last dose:today -Medication: xywav 4.5g x 2 nightly -Timing: midnight and 3.5-4 hrs later -Side effects: none -Benefit: yes -Last Dose: last night Previous Hypersomnia Medications: Generic vyvase-doesn't work as well Utox: 04/13/2025-+ for amphetamines (expected) EK04/14/2025- NSR PATIENT-ENTERED QUESTIONNAIRE SLEEP SCORES: 07/12/2025 Sleep Questions Reason for visit: Difficulty falling or staying asleep or poor sleep quality Excessive daytime sleepiness Narcolepsy Abnormal sleep/wake timing On average, hours of sleep in 24 hours: 8 Accidents or near accidents due to drowsy drivin Multiple values from one day are sorted in reverse-chronological order 07/08/2024 10/08/2024 07/12/2025 [place] Sleepiness Scale Score 15 (Excessive daytime sleepiness present) 14 (Excessive daytime sleepiness present) 12 (Excessive daytime sleepiness present) 07/08/2024 10/08/2024 07/12/2025 PROMIS CAT Sleep Disturbance PROMIS Sleep Disturbance T-Score 45 (within normal limits) 49 (within normal limits) 43 (within normal limits) PROMIS Sleep Disturbance Percentile 69 54 76 06/27/2020 Insomnia Severity Index Score 28 06/27/2020 07/13/2022 Restless Leg Syndrome Score 16 (Moderate symptoms) 16 (Moderate symptoms) 07/08/2024 10/08/2024 07/12/2025 PHQ-9 Score 3 4 3 3 07/08/2024 10/08/2024 07/12/2025 PROMIS Global Health - (T-Scores - the mean of general population = 50. Five points is a clinicallymeaningful difference.) Physical T-Score 37.4 39.8 37.4 37.4 Mental T-Score 41.1 45.8 45.8 45.8 07/12/2025 Sleep Questions Reason for visit: Difficulty falling or staying asleep or poor sleep quality Excessive daytime sleepiness Narcolepsy Abnormal sleep/wake timing On average, hours of sleep in 24 hours: 8 Accidents or near accidents due to drowsy drivin Multiple values from one day are sorted in reverse-chronological order 07/08/2024 10/08/2024 07/12/2025 [place] Sleepiness Scale Score 15 (Excessive daytime sleepiness present) 14 (Excessive daytime sleepiness present) 12 (Excessive daytime sleepiness present) 07/08/2024 10/08/2024 07/12/2025 PROMIS CAT Sleep Disturbance PROMIS Sleep Disturbance T-Score 45 (within normal limits) 49 (within normal limits) 43 (within normal limits) PROMIS Sleep Disturbance Percentile 69 54 76 06/27/2020 Insomnia Severity Index Score 28 06/27/2020 07/13/2022 Restless Leg Syndrome Score 16 (Moderate symptoms) 16 (Moderate symptoms) 07/08/2024 10/08/2024 07/12/2025 PHQ-9 Score 3 4 3 3 Multiple values from one day are sorted in reverse-chronological order 07/08/2024 10/08/2024 07/12/2025 PROMIS Global Health - (T-Scores - the mean of general population = 50. Five points is a clinicallymeaningful difference.) Physical T-Score 37.4 39.8 37.4 37.4 Mental T-Score 41.1 45.8 45.8 45.8 Multiple values from one day are sorted in reverse-chronological order ROS Constitutional: (-) daytime sleepiness Head: (+) headaches Cardiovascular: (-) palpitations Gastrointestinal: (-) nausea Neurological: (-) restless leg symptoms, (-) cataplexy, (-) sleep paralysis ALLERGIES Allergen Reactions Biaxin [Clarithromy* GI Upset Sutures Rash, Hives, Swelling, Itching Specifically, cat gut sutures Cymbalta [Duloxetin* Swelling Severe abdominal pain Demerol [Meperidine* Vomiting Indomethacin Swelling Had 4+ edema in legs and arms the day after taking a new prescription. Liquid Bandage (Cya* Rash Dermabond/exofin Morphine Vomiting Naproxen GI Upset Penicillins Rash, Hives Patient can tolerate Augmentin Vancomycin GI Upset Versed [Midazolam H* Vomiting Z Pack [Azithromyci* Rash, GI Upset CURRENT MEDICATIONS: [START ON 08/21/2025] VYVANSE 70 mg capsule Take (1) capsule by mouth upon awakening Patient should start on August 21, 2025. sodium,calcium,mag,pot oxybate (XYWAV) 0.5 gram/mL soln oral liquid Take 4.5 grams at bedtime and 4.5 grams 2.5-4 hours after (9 grams total per night) carBAMazepine (TEGRETOL) 200 mg tablet Take 2 tablets by mouth three times a day. keTORolac (TORADOL) 60 mg/2 mL soln INJECT 2ML INTRAMUSCULARLY ONE TIME ONLY FOR 1 DOSE ondansetron (ZOFRAN) 8 mg tablet Take by mouth three times a day as needed. levothyroxine (SYNTHROID) 50 mcg tablet TAKE 1 TABLET BY MOUTH SATURDAY THROUGH SATURDAY. SKIP SATURDAY. dexAMETHasone sodium phosphate (DECADRON) 4 mg/mL injection INJECT 1ML (4MG) INTRAMUSCULARLY EVERY 6 HOURS NEEDED FOR ADRENAL STRESS, USE WHEN VOMITING OR DIARRHEA PREVENTS USE OF THE ORAL DOSE. desmopressin acetate (DDAVP) 0.1 mg tablet Take 0.1 mg by mouth three times daily. liothyronine (CYTOMEL) 5 mcg tablet Take 5 mcg by mouth twice daily. ezetimibe (ZETIA) 10 mg tablet Take 10 mg by mouth every morning. REPATHA SURECLICK 140 mg/mL pen injector INJECT 140 MG UNDER THE SKIN EVERY 2 WEEKS hydrOXYzine HCl (ATARAX) 25 mg tablet Take 25 mg by mouth as needed. omeprazole (PRILOSEC) 40 mg capsule Take 40 mg by mouth as needed. SUMAtriptan (IMITREX) 100 mg tablet Take 100 mg by mouth. esterified estrogens-methylTESTOSTERone (ESTRATEST) 1.25-2.5 mg per tablet Take 1 tablet by mouth once daily. tiZANidine (ZANAFLEX) 4 mg tablet Take 4 mg by mouth as needed. PHYSICAL EXAMINATION: Vital Signs: Deferred due to virtual visit via Zoom. General appearance: NAD Mental status: awake and alert Constitutional: Well groomed Skin: Dry and intact Neuro: Speech fluent General: Well-appearing. Assessment /Plan Narcolepsy and cataplexy (hcc) (primary encounter diagnosis) Long-term current use of stimulant Pao Lion is a 55 year old female with a PMH of headaches, narcolepsy, chronic pain, hypothyroidism, dyslipidemia and obesity who presents via zoom for Narcolepsy follow up. A Polysomnogram performed 06/29/2020 diagnosed primary snoring and was negative for NUHA. 1. Narcolepsy and cataplexy (HCC) (G47.411) 2. Long-term current use of stimulant (Z79.899) Narcolepsy and cataplexy are stable with no recent episodes of cataplexy, sleep paralysis, or excessive daytime sleepiness. Patient is consistently sleeping from midnight to 8 AM, averaging 8 hours per night. Vyvanse is taken in the morning without side effects, and Xywav is taken twice nightly with good control of cataplexy and no reported side effects. EKG from March was normal. - Continue current regimen of Vyvanse in the morning and Xywav twice nightly. - Maintain brand-name Vyvanse as required by insurance; continue 90-day supply. - Follow-up in 3 months as scheduled. Kavon Snider APRN.LAURI documented in this encounterM[facility]25 NoteHNO ID: [id number] Author: KAVON SNIDER APRN.LAURI Service: ? Author Type: Nurse Practitioner Type: Progress Notes Filed: 07/13/2025 10:51 Note Text: [facility] Follow up/ Established patient visit Recording using 9facts software for draft documentation of the visit was discussed with the patient/authorized retail wireless sales representative; all questions welcomed and answered. Patient/authorized retail wireless sales representative agreed to proceed I have communicated my name and active licensure. The patient's identity and physical location were verified at the time of this visit. Either the patient or their legal retail wireless sales representative has been informed of the risks and benefits of -- and alternatives to -- treatment through a remote evaluation and consents to proceed with the evaluation remotely. Assessment/Plan from last visit: Date of last visit :04/09/2025 Assessment AND Plan Diagnosis: 1. 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 Patient is taking Vyvanse 70 mg daily in the morning and Xywav as prescribed. No significant episodes of cataplexy, sleep-related hallucinations, or sleep paralysis reported. No adverse effects from medications. Last in-person visit was on 01/13/[address] Castellanos. - Continue Vyvanse 70 mg daily; prescription refilled for 90 days with brand name specified, to be filled at [facility]. - Continue Xywav as currently prescribed. - Ordered annual EKG and urine toxicology screen to be completed within the next three months. - Advised patient to avoid CBD products due to potential respiratory depression when combined with Xywav. - Recommended magnesium 200 mg at bedtime for muscle spasms and arthritic pain, to be started after recovery from current illness. Plan: Narcolepsy: Medication(s) as ordered. Vyvanse 70 mg as directed (#90/90d), last filled on 02/22/25. Dispense on or after 05/23/25- (90 day supply), insurance pays only for brand name Vyvanse. Transmitted. Xywav 4.5 grams twice per night ($450/30d), last filled on 03/12/25 ECG 12/16/23 NL NSR. Get yearly ECG. Urine tox Screen 12/16/23 (+) Amphetamines. Get yearly Urine Tox Screen. Last in person visit 01/13/[address] Drew Castellanos. Last Sleep MD visit 01/13/[address] Drew Castellanos. Schedule 3 month follow-up visit with YOLANDA or Sleep MD (virtual or in-person). Follow up as discussed. I spent a total of 23 minutes. This was a follow up patient to me on the date of the service which included preparing to see the patient, [id number] patient care, completing clinical documentation, counseling and educating the patient/family/caregiver and ordering medications, tests, or procedures. Recording using 9facts software for draft documentation of the visit was discussed with the patient/authorized retail wireless sales representative; all questions welcomed and answered. Patient/authorized retail wireless sales representative agreed to proceed Dariana Stockton APRN.LEAD FABRICATOR April 09, 2025 6:35 AM Activity Duration Pre-charting 6 minutes Pre-charting 3 minutes Pre-charting 1 minute Chart accessed 23 minutes Total time: 34 minutes CURRENT VISIT: 07/13/2025 INTERVAL HISTORY: 1. Concerns: - Sleep Quality - Patient is a 55-year-old female presenting for a follow-up regarding her sleep quality. - Reports that her sleep has been good with no restless leg symptoms, cataplexy, or sleep paralysis. - Denies experiencing sleepy driving or wanting to fall asleep while driving. - Medication Management - Patient takes Vyvanse in the morning around 08:00-09:00 with no side effects. - Takes Xywav twice at night, with the first dose around midnight, and reports it helps significantly with cataplexy. - Denies experiencing nausea, palpitations, or headaches related to her medications. - Has a history of migraines, which are stable and managed with Botox treatments. - Reports no issues with obtaining medications from the pharmacy, although her insurance only covers the brand name for Vyvanse. HYPERSOMNIA : Narcolepsy Naps: rarely Cataplexy: No Hypnagogic hallucinations: No Dream enactment behaviors: No Sleep related injuries: No Drowsy driving: No Sleep schedule: Bed time: midnight, Wake time: 8am, TST: 8 hours Current medications: OARRS checked: yes Current medications: -Medication: vyvanse 70mg -Timinam -Side effects: none -Benefit: yes -Last dose:today -Medication: xywav 4.5g x 2 nightly -Timing: midnight and 3.5-4 hrs later -Side effects: none -Benefit: yes -Last Dose: last night Previous Hypersomnia Medications: Generic vyvase-doesn't work as well Utox: 04/13/2025-+ for amphetamines (expected) EK04/14/2025- NSR PATIENT-ENTERED QUESTIONNAIRE SLEEP SCORES: 07/12/2025 Sleep Questions Reason for visit: Difficulty falling or staying asleep or poor sleep quality Excessive daytime sleepiness (more content not included)...[facility]08-22-2025 Miscellaneous Notes* Telephone Encounter - Nolvia Butler CNA - 07/09/2025 9:04 AM EDT Spoke with Pao, she verbalized understanding. ----- Message from LACY Nichols sent at 07/06/2025 10:25 AM EDT ----- Please let her know gallbladder is not showing any wall thickening or cholelithiasis. Continue withroutine antacid. ----- Message ----- From: Interface - Rad Results/Orders In 1 Sent: 07/06/2025 7:29 AM EDT To: LACY Nichols documented in this [facility] Telephone encounter Note* Telephone Encounter - Nolvia Butler CNA - 07/09/2025 9:04 AM EDT Spoke with Pao, she verbalized understanding. ----- Message from LACY Nichols sent at 07/06/2025 10:25 AM EDT ----- Please let her know gallbladder is not showing any wall thickening or cholelithiasis. Continue withroutine antacid. ----- Message ----- From: Interface - Rad Results/Orders In 1 Sent: 07/06/2025 7:29 AM EDT To: LACY Nichols [facility]08-22-2025 Miscellaneous Notes* Telephone Encounter - Nolvia Butler CNA - 07/09/2025 9:02 AM EDT Spoke with Pao, she verbalized understanding and phone number for scheduling given to schedule CT in September. ----- Message from LACY Nichols sent at 07/06/2025 9:00 PM EDT ----- There are small right lung nodular densities, the largest is 3-4 mm. These were not seen on prior exams. Repeat recommended at 3-4 months. Order placed. ----- Message ----- From: Interface - Rad Results/Orders In 1 Sent: 06/28/2025 4:05 PM EDT To: LACY Nichols documented in this encounterFostoria [facility]08-22-2025 Telephone encounter Note* Telephone Encounter - Nolvia Butler CNA - 07/09/2025 9:02 AM EDT Spoke with Pao, she verbalized understanding and phone number for scheduling given to schedule CT in September. ----- Message from LACY Nichols sent at 07/06/2025 9:00 PM EDT ----- There are small right lung nodular densities, the largest is 3-4 mm. These were not seen on prior exams. Repeat recommended at 3-4 months. Order placed. ----- Message ----- From: Interface - Rad Results/Orders In 1 Sent: 06/28/2025 4:05 PM EDT To: LACY Nichols [facility]08-14-[facility] History of Present illness Narrative* LACY Nichols - 07/01/2025 2:20 PM EDT Subjective Patient ID: Pao Lion is a 55 y.o. female. Video Visit via Real-time Synchronous Audiovisual Provider Location: [facility] [address] [place] [id number] Patient Location: Patient's home Video Visit Consent [...] that there are some limitations compared to [id number] evaluations. The patient consented to the presence of additional virtual and/or in-person participants. We elected to proceed. SERGE Cedeno presents via video visit to discuss abdominal pain, indigestion, and nausea. She reports thepain mostly is in the right upper quadrant and goes up and around to the back causing a burning type of pain in the middle of her chest and epigastric area. She reports she also has a lot of bloating. She reports she has been having increased diarrhea and constipation and pain seems to be worse after eating. She notices pain is worse after eating heavier meals. She reports pain has been ongoing for a few days but seems to have been out of control since about yesterday evening after dinner. She is concerned about gallbladder. She has not been taking omeprazole, she typically only takes Prn. Lung scan CT chest completed 06/24/2025 and showed limited images of upper abdomen that showed chololithiasis. She had CT abdomen pelvis on 06/23/2025 which showed gallbladder unremarkable and showed colonic diverticulosis without acute diverticulitis. The following portions of the patient's history were reviewed and updated as appropriate: allergies, current medications, past family history, past medical history, past social history, past surgicalhistory, problem list, and medication reconciliation was completed including current medication andpost discharge medication. Review of Systems Constitutional: Negative for chills, diaphoresis, fatigue, fever and unexpected weight change. HENT: Negative. Respiratory: Negative. Cardiovascular: Negative. Gastrointestinal: Positive for abdominal pain, constipation, diarrhea and nausea. Negative for vomiting. Genitourinary: Negative. Psychiatric/Behavioral: Negative for self-injury and suicidal ideas. Objective Physical Exam Constitutional: Comments: Video visit. She is interacting and answering appropriately Assessment/Plan Reviewed recent scans with patient it looks like there is concern for cholelithiasis. We will further evaluate with ultrasound of the abdomen. Encouraged to take PPI routinely. Zofran in Phenergan sent in as needed. Encouraged to start off with Zofran to see if this is effective if not then she may take the Phenergan. We will call her with results. Diagnoses and all orders for this visit: Generalized abdominal pain - Ultrasound abdomen complete; Future Nausea and vomiting, unspecified vomiting type - Ultrasound abdomen complete; Future - Discontinue: ondansetron (ZOFRAN) 8 mg tablet; Take 1 tablet (8 mg total) by mouth every 8 (eight) hours as needed for nausea or vomiting. - Discontinue: promethazine (PHENERGAN) 25 mg tablet; Take 0.5 tablets (12.5 mg total) by mouth every 8 (eight) hours as needed for nausea or vomiting. Oral or injectable - ondansetron (ZOFRAN) 8 mg tablet; Take 1 tablet (8 mg total) by mouth every 8 (eight) hours as needed for nausea or vomiting. - promethazine (PHENERGAN) 25 mg tablet; Take 0.5 tablets (12.5 mg total) by mouth every 8 (eight) hours as needed for nausea or vomiting. Oral or injectable Right upper quadrant pain - Ultrasound abdomen complete; Future Migraine with aura and without status migrainosus, not intractable - Discontinue: ondansetron (ZOFRAN) 8 mg tablet; Take 1 tablet (8 mg total) by mouth every 8 (eight) hours as needed for nausea or vomiting. - Discontinue: promethazine (PHENERGAN) 25 mg tablet; Take 0.5 tablets (12.5 mg total) by mouth every 8 (eight) hours as needed for nausea or vomiting. Oral or injectable - ondansetron (ZOFRAN) 8 mg tablet; Take 1 tablet (8 mg total) by mouth every 8 (eight) hours as needed for nausea or vomiting. - promethazine (PHENERGAN) 25 mg tablet; Take 0.5 tablets (12.5 mg total) by mouth every 8 (eight) hours as needed for nausea or vomiting. Oral or injectable Other orders - omeprazole (PriLOSEC) 40 mg capsule; Take 1 capsule (40 mg total) by mouth every morning before breakfast. LACY Nichols 07/05/252052 documented in this encounterF[facility]08-08-2025 Telephone encounter Note* Telephone Encounter - Ruchi Troy - 06/25/2025 4:33 PM EDT Patient last seen on 04/26/25 [facility]08-06-[facility]25 NoteHNO ID: [id number] Author: DANNY CABRALES RT(R) Service: Radiology Author Type: Technologist Type: Progress Notes Filed: 06/23/2025 17:42 Note Text: Radiology Service Progress Note PATIENT NAME: Pao Lion DATE OF SERVICE: June 23, 2025 TIME: 5:42 PM PATIENT IDENTITY VERIFICATION COMPLETED USING TWO (2) IDENTIFIERS: Name and Date of confirmed by patient verbally and Name and Date of confirmed by identification band. FALL SCREENING: Has the patient had 2 falls in the last year or 1 fall with injury or currently using an Ambulatory Assistive Device (Walker, Cane, Wheelchair, Crutches, etc.)? No PATIENT GENDER DATA: Assigned female at . status: : No status: NO. PATIENT RELEVANT IMPLANT DATA REVIEWED: Not Applicable PATIENT PRESENTS WITH AN IMPLANTABLE OR ATTACHED HOGSHEAD HAND: No RADIOLOGY DEPARTMENT: CT; Exam(s) Completed: Abdomen/Pelvis PERIPHERAL IV DATA: Site assessment: Clean,Dry and Intact, Site disposition Discontinued SIGNED BY: RT Michelle(R) June 23, 2025 5:[address] [id number] NoteHNO ID: [id number] Author: CRISTINA GREEN, Service: ? Author Type: Physician Type: Progress Notes Filed: 06/08/2025 11:14 Note Text: General Surgery Office Progress Note 06/08/2025 11:13 AM Recording using 9facts software for draft documentation of the visit was discussed with the patient/authorized retail wireless sales representative; all questions welcomed and answered. Patient/authorized retail wireless sales representative agreed to proceed Pao Lion is a 55-year-old female with a history of diverticulitis, small fiber neuropathy, and a hysterectomy, presenting for evaluation of recent diverticulitis flare-up and concerns about potential complications. Pao reports a recent flare-up of diverticulitis, confirmed by a CT scan performed 5 days ago at [facility], which also revealed worsening of the condition. The CT was done for surveillance of a liver lesion. She experiences pressure and pinching sensations in the lower pelvis, which have improved since starting antibiotics. She describes her urine as occasionally dark and bubbly, with a sensation of a bloated and full bladder, but denies dysuria. Pao has a history of frequent mild episodes of diverticulitis, which she does not always treat with antibiotics. She also reports chronic back and neck pain, which she initially attributed to the diverticulitis flare-up, describing the pain as severe, rating it 8-9/10. Pao has a family history of diverticulitis, with her sister affected, and her father having from a perforated bowel. She expresses concern about the potential formation of a fistula to her bladder, similar to her sister's experience. She has not had a colonoscopy in 10 years and inquires about the possibility of a virtual colonoscopy. Additionally, Pao has been diagnosed with small fiber neuropathy, which she believes was exacerbated by a previous right inguinal hernia surgery. She reports numbness in half of her pelvis, extending into her thigh, groin, and abdomen, and notes that the neuropathy is now affecting her entire body. She inquires about any special precautions that should be taken during surgery due to her neuropathy. Gastrointestinal: (+) lower abdominal pain, (+) abdominal bloating, (+) abdominal pressure Genitourinary: (+) urinary frequency, (+) urinary urgency, (+) dark urine, (+) bubbly urine, (+) pelvic pressure, (-) dysuria Musculoskeletal: (+) back pain Neurological: (+) numbness of pelvis/thigh/groin/abdomen General: No acute distress. Labs: Tests: Imaging: (06/03) CT Abdomen and Pelvis: uncomplicated actue proximal sigmoid diverticulitis. hepatic steatosis, non visualization of focal abnormalities of the liver with noncontrasted imaging. 1. Acute diverticulitis (K57.92) Recurrent episodes with recent exacerbation confirmed by CT scan on 06/03. Symptoms include abdominal pain, urinary urgency, and pelvic pressure. Concerns about potential colovesical fistula formation due to family history. - Ordered CT abdomen and pelvis with oral and rectal contrast to evaluate for fistula formation. - Discussed dietary modifications to prevent flare-ups, including a high-fiber diet and adequate hydration. - Provided education on the risks and benefits of elective partial colectomy. - Referred to Dr[facility] Naz[facility] at [facility] for colorectal surgical consultation. 2. Small fiber neuropathy (G62.9) Confirmed diagnosis with symptoms of numbness and paresthesia affecting the pelvis, thigh, groin, and abdomen. Symptoms exacerbated post-hernia surgery. - Monitor symptoms and manage flare-ups as needed. - Discussed potential impact of local anesthetics on neuropathy with future surgical procedures. 3. Liver lesion (K76.9) Previous liver lesion with fatty liver disease; recent CT scan was part of follow-up. - Continue regular follow-up and monitoring of liver condition.[facility]07-22-[facility] History of Present illness Narrative* Cristina Green DO - 06/08/2025 11:13 AM EDT General Surgery Office Progress Note 06/08/2025 11:13 AM Recording using 9facts software for draft documentation of the visit was discussed with the patient/authorized retail wireless sales representative; all questions welcomed and answered. Patient/authorized retail wireless sales representative agreed to proceed Pao Lion is a 55-year-old female with a history of diverticulitis, small fiber neuropathy, and a hysterectomy, presenting for evaluation of recent diverticulitis flare-up and concerns about potential complications. Pao reports a recent flare-up of diverticulitis, confirmed by a CT scan performed 5 days ago at [facility], which also revealed worsening of the condition. The CT was done for surveillance of a liver lesion. She experiences pressure and pinching sensations in the lower pelvis, which have improvedsince starting antibiotics. She describes her urine as occasionally dark and bubbly, with a sensation of a bloated and full bladder, but denies dysuria. Pao has a history of frequent mild episodesof diverticulitis, which she does not always treat with antibiotics. She also reports chronic back and neck pain, which she initially attributed to the diverticulitis flare-up, describing the pain as severe, rating it 8-9/10. Pao has a family history of diverticulitis, with her sister affected, and her father having diedfrom a perforated bowel. She expresses concern about the potential formation of a fistula to her bladder, similar to her sister's experience. She has not had a colonoscopy in 10 years and inquires about the possibility of a virtual colonoscopy. Additionally, Pao has been diagnosed with small fiber neuropathy, which she believes was exacerbated by a previous right inguinal hernia surgery. She reports numbness in half of her pelvis, extending into her thigh, groin, and abdomen, and notes that the neuropathy is now affecting her entire body. She inquires about any special precautions that should be taken during surgery due to her neuropathy. Gastrointestinal: (+) lower abdominal pain, (+) abdominal bloating, (+) abdominal pressure Genitourinary: (+) urinary frequency, (+) urinary urgency, (+) dark urine, (+) bubbly urine, (+) pelvic pressure, (-) dysuria Musculoskeletal: (+) back pain Neurological: (+) numbness of pelvis/thigh/groin/abdomen General: No acute distress. Labs: Tests: Imaging: (06/03) CT Abdomen and Pelvis: uncomplicated actue proximal sigmoid diverticulitis. hepatic steatosis, non visualization of focal abnormalities of the liver with noncontrasted imaging. 1. Acute diverticulitis (K57.92) Recurrent episodes with recent exacerbation confirmed by CT scan on 06/03. Symptoms include abdominal pain, urinary urgency, and pelvic pressure. Concerns about potential colovesical fistula formation due to family history. - Ordered CT abdomen and pelvis with oral and rectal contrast to evaluate for fistula formation. - Discussed dietary modifications to prevent flare-ups, including a high-fiber diet and adequate hydration. - Provided education on the risks and benefits of elective partial colectomy. - Referred to Dr. Steve Nazario at [facility] for colorectal surgical consultation. 2. Small fiber neuropathy (G62.9) Confirmed diagnosis with symptoms of numbness and paresthesia affecting the pelvis, thigh, groin, and abdomen. Symptoms exacerbated post-hernia surgery. - Monitor symptoms and manage flare-ups as needed. - Discussed potential impact of local anesthetics on neuropathy with future surgical procedures. 3. Liver lesion (K76.9) Previous liver lesion with fatty liver disease; recent CT scan was part of follow-up. - Continue regular follow-up and monitoring of liver condition. documented in this encounterM[facility]07-22-2025 Instructions* Patient Instructions* Cristina Green DO - 06/08/2025 11:13 AM EDT We discussed your recent flare-up of diverticulitis: - You reported symptoms of abdominal pain, pressure, and pinching in the pelvis, as well as urinaryurgency and bloating. These symptoms have improved since starting antibiotics. - A CT scan from June 03 confirmed diverticulitis. You expressed concern about the possibility of acolovesical fistula due to your symptoms and family history. - To further evaluate your condition, I have ordered a CT scan of the abdomen and pelvis with oral and rectal contrast. This will help assess the extent of your diverticulitis and rule out complications such as a fistula. Please schedule this test at a [facility] facility if possible, as it allows us to review the images directly. -It is recommended that you do proceed with screening colonoscopy in 6-12 weeks. - To help prevent future diverticulitis flare-ups, maintain regular bowel movements by following a high-fiber diet, drinking plenty of water, and avoiding foods that trigger symptoms. Continue to monitor your symptoms and let us know if they worsen. We discussed your concerns about potential surgery for diverticulitis: - You expressed interest in exploring less invasive diagnostic options before considering surgery. If surgery becomes necessary, I recommend consulting with a colorectal surgeon who specializes in these procedures. - I will send you a list of colorectal surgeons, including Dr. Steve Nazario at the [facility], who comes highly recommended. We discussed your small fiber neuropathy: - You mentioned ongoing symptoms of numbness and nerve pain, which you believe may be contributing to your pelvic discomfort. While I am not aware of specific surgical precautions related to small fiber neuropathy, I recommend informing any future surgeons about your diagnosis so they can take appropriate measures. Next steps: - Schedule the CT scan of the abdomen and pelvis with oral and rectal contrast. - I will send you information about colorectal surgeons via [employer]. - Continue your current antibiotics as prescribed. You do not need to wait until completing the antibiotics to schedule the CT scan. - Maintain a high-fiber diet, stay hydrated, and monitor your symptoms. Contact us if your symptomsworsen or if you have any new concerns. Please reach out through [facility] or call our office if you have any questions or need further assistance. documented in this encounterM[facility]07-17-2025 Radiology [place] [address] [place] Scan Report Signed Patient: Pao Lion MR#: [id number] : 1970 Acct:[id number] Age/Sex: 55 / F ADM Date: 5 Loc: CT Room: Type: [facility] Attending Dr: Jeff WATSON Copies to: SHIRLEY Sheridan~ Ordering Provider: SHIRLEY Sheridan Date of Service: 06/03/25 CT/CT abdomen pelvis wo con: K76.9, K76.0 CT Abdomen and Pelvis withoutcontrast TECHNIQUE: Axial imaging with 2-D reconstruction. . The CT exam was performed using one or more thefollowing dose reduction techniques: Automated exposure control, adjustment of the MA and/or Kv according to patient size, or use of theiterative reconstruction technique. COMPARISON: 06/22/2023 History: Abdominal discomfort. Liver lesion. Nonalcoholic fatty liver disease. Elevated liver enzymes LIMITATIONS: None LOWER THORAX the bilateral breast implantation LIVER: Hepatic steatosis. Hepatic lesion identified with noncontrasted imaging. GALLBLADDER: No gallbladder abnormality identified. BILE DUCTS: No dilatation SPLEEN: Unremarkable PANCREAS: Unremarkable ADRENAL GLANDS: Unremarkable KIDNEYS:Unremarkable AORTA: No abdominal aortic aneurysm identified. RETROPERITONEUM: No significant retroperitoneal abnormalities identified. MESENTERY:Unremarkable STOMACH:Unremarkable SMALL BOWEL: The small bowel loops are nondistended. APPENDIX: The appendix is normal. COLON: Transverse, Descending and sigmoid diverticulosis. Peridiverticular fatty stranding and proximal sigmoid diverticuli consistent with acute diverticulitis. No abscess or extraluminal air. Edematous wall thickening of proximal sigmoid colon. URINARY BLADDER: Urinary bladder is unremarkable. REPRODUCTIVE SYSTEM: Reproductive structures are unremarkable. PNEUMOPERITONEUM: None PERITONEAL FLUID:None BONY STRUCTURES: Unremarkable ABDOMINAL WALL: Unremarkable CT/CT abdomen pelvis wo con IMPRESSION: Uncomplicated acute proximal sigmoid diverticulitis. Hepatic steatosis. Impression dictated by: Gareth Posey M.D. 06/03/2025 3:09 PM Dictation Location: [place] [address] Transcribed By: [facility] 06/03/25 1509 Dictated By: Gareth Posey DO 06/03/25 1501 Signed By: 06/03/25 1509 [facility]07-14-2025 Note* Addendum Note - Dariana Stockton APRN.CNP - 05/31/2025 11:30 AM EDTAddended by: DARIANA STOCKTON on: 05/31/2025 11:30 AM Modules accepted: Orders [facility]07-14-[facility] Miscellaneous Notes* Addendum Note - Dariana Stockton APRN.LAURI - 05/31/2025 11:30 AM EDTAddended by: DARIANA STOCKTON on: 05/31/2025 11:30 AM Modules accepted: Orders * Telephone Encounter - Dariana Stockton APRN.CNP - 05/31/2025 11:25 AM EDT Summary: Xywav refilled. The following approved medication requests have been transmitted electronically. Requested Prescriptions Signed Prescriptions Disp Refills sodium,calcium,mag,pot oxybate (XYWAV) 0.5 gram/mL soln oral liquid 540 mL 5 Sig: Take 4.5 grams at bedtime and 4.5 grams 2.5-4 hours after (9 grams total per night) Authorizing Provider: DARIANA STOCKTON APRN.CNP PDMP website checked and validated. All prescriptions have been APPROPRIATELY filled. No suspiciousactivity was identified. 05/31/2025 by Dariana Stockton APRN.CNP documented in this encounterM[facility]07-14-2025 Telephone encounter Note * Telephone Encounter - Dariana Stockton APRN.CNP - 05/31/2025 11:25 AM EDT Summary: Xywav refilled. The following approved medication requests have been transmitted electronically. Requested Prescriptions Signed Prescriptions Disp Refills sodium,calcium,mag,pot oxybate (XYWAV) 0.5 gram/mL soln oral liquid 540 mL 5 Sig: Take 4.5 grams at bedtime and 4.5 grams 2.5-4 hours after (9 grams total per night) Authorizing Provider: DARIANA STOCKTON APRN.CNP PDMP website checked and validated. All prescriptions have been APPROPRIATELY filled. No suspiciousactivity was identified. 05/31/2025 by Dariana Stockton APRN.CNP [facility]07-02-2025 History of Present illness Narrative* LACY Nichols - 05/19/2025 4:00 PM EDT Subjective SUBJECTIVE: Patient ID: Pao Lion is a 55 y.o. female who presents for a Medicare Annual Wellness exam. HPI Reports she is doing well. Health Care team: [facility] infections Followed with Gastroenterology in the past for colitis and diverticulitis, but he moved away, she will let me know if she needs referral. Hx of liver lesion, 3 mm hepatic hypodensity and focal fatty infiltration of left lobe of liver. CT last completed in [facility] in 2022. Following with Endocrinology for adrenal insufficiency, thyroid, and elevated cholesterol. 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 Following with sleep Medicine for Norcolepsy The following portions of the patient's history were reviewed and updated as appropriate: allergies, current medications, past family history, past medical history, past social history, past surgicalhistory and problem list. AWV FLOWSHEET : Lifestyle Assessment Do you smoke or use smokeless tobacco?: No If you smoke or use smokeless tobacco, are you ready to quit?: NA Are you exposed to secondhand smoke?: No On average, how many drinks of alcohol do you consume in a week?: None Do you exercise for 30 or more minutes on average at least 3 days a week?: (!) Never Do you have any tooth, denture, or oral problems?: No Do you snore or has anyone told you that you snore?: (!) Yes Do you try to eat a balanced diet?: Yes Do you experience leakage of urine, also known as urinary incontinence?: Never Do you have difficulty bathing?: No Do you have difficulty dressing?: No Do you have difficulty grooming?: No Do you have difficulty eating?: No Do you have difficulty getting out of a chair?: No Do you have difficulty walking?: (!) Yes Do you have difficulty using the toilet?: No Do you have difficulty doing laundry?: No Do you have difficulty with housekeeping?: No Do you have difficulty preparing a meal?: No Do you have difficulty shopping?: No Do you have difficulty using transportation?: No Do you have difficulty paying bills?: No Do you have difficulty managing finances?: No Fall Risk Fall Risk Assessment Completed?: Yes Have you fallen in the past year?: No Are you worried about falling?: No Do you feel unsteady when standing or walking?: No Risk Stratification: Low Risk Depression Screening Little interest or pleasure in doing things: Not at all Feeling down, depressed, or hopeless: Not at all Trouble falling or staying asleep, or sleeping too much: Not at all Feeling tired or having little energy: (!) Nearly every day Poor appetite or overeating: Not at all Feeling bad about yourself - or that you are a failure or have let yourself or your family down: Not at all Trouble concentrating on things, such as reading the newspaper or watching television: (!) Nearly every day Moving or speaking so slowly that other people could have noticed. Or the opposite - being so fidgety or restless that you have been moving around a lot more than usual: Not at all Thoughts that you would be better off , or of hurting yourself in some way: Not at all PEG Scale What number best describes your pain on average in the past week?: 6 What number best describes how, during the past week, pain has interfered with your enjoyment of life?: 6 What number best describes how, during the past week, pain has interfered with your general activity?: 6 PEG Pain Total Score: 6 Safety Assessment Do you have throw rugs on the floor?: No Do you feel safe at your home?: Yes Do you feel unsteady when walking?: No Are you having difficulty with driving?: No Do you have trouble seeing?: No Do you use a bath bar/seat?: No Do you use a raised toilet seat?: No Do you use a cane?: No Do you use a walker?: No Do you use a wheelchair?: No Hearing Assessment Do you strain or struggle to hear/understand conversations?: (!) Yes Do you have trouble hearing the television or radio when others do not?: (!) Yes Does your family ever voice concerns about your hearing?: (!) Yes Do you wear hearing aid/s?: (!) Yes Personal Health During the past 4 weeks, how would you rate your overall health?: (!) Fair Do you understand how to take all of your medications?: Yes How confident are you that you can control and manage most of your health problems?: (!) Somewhat confident In the past 12 months, how many times have you been hospitalized?: None End of Life Planning Do you have a living will?: (!) No Do you have a durable power of deputy attorney general?: (!) No Cognitive Screening Do you have trouble remembering or recalling facts or events?: (!) Yes Do family members or caregivers report that you have difficulty remembering things?: (!) Yes Clock Drawing Test: Normal REVIEW OF SYSTEMS: Review of Systems Constitutional: Positive for fatigue. Negative for chills, diaphoresis, fever and unexpected weightchange. HENT: Negative. Eyes: Negative. Respiratory: Negative. Negative for cough, chest tightness, shortness of breath and wheezing. Cardiovascular: Negative. Negative for chest pain and leg swelling. Gastrointestinal: Positive for constipation and diarrhea. Negative for abdominal pain, blood in stool, nausea and vomiting. Baseline Endocrine: Negative for polydipsia, polyphagia and polyuria. Genitourinary: Negative for difficulty urinating, frequency, hematuria and urgency. Musculoskeletal: Positive for arthralgias, back pain, gait problem, myalgias and neck pain. Negative for joint swelling. Baseline Skin: Negative. Neurological: Positive for dizziness, numbness and headaches. Negative for syncope, weakness and light-headedness. Psychiatric/Behavioral: Negative for self-injury, sleep disturbance (controlled with medication) and suicidal ideas. Objective PHYSICAL EXAMINATION: Vitals: 05/19/25 1616 BP: 104/62 BP Site: Left Arm BP Postition: Sitting Pulse: 81 Temp: 36.3 C (97.4 F) TempSrc: Oral SpO2: 97% Weight: 64.3 kg (141 lb 12.8 oz) Height: 154.9 cm (5' 0.98 ) Physical Exam HENT: Ears: Comments: Bone Anchored Hearing Aide bilateral implants Eyes: Comments: Wearing glasses. Assessment/Plan ASSESSMENT/PLAN Health maintenance reviewed. Screening is up-to-date with cologuard and reports it is up to date. Last completed 12/2022, and wasnormal at that time. Due next year. Mammogram is up to date, 09/11/2024 with [facility]. Order placed for this August. She had complete hysterectomy, she does follow routinely with [facility] COMMODITY ANALYST. Dexascan completed 01/18/2025- mild osteopenia. Continues with vitamin D and calcium supplements. She has hx of smoking. She is >20 pack year smoking. She quit in 2019. Within the last 15 years. She has had labs completed with other specialists. Last labs completed that I see in the computer system 12/30/2024, reviewed. Lipid, smp, cbc, tsh, hgba1c all WNL. She is up-to-date on immunizations. Up to date on dental and vision exams. Ensure to follow up with specialists. Otherwise healthy adult. Please follow up annually for wellness and in 3 months for trigeminal neuralgia and fibromyalgia. The OARRS/MAPPS database was reviewed today and found to be appropriate. No indication of medication diversion, or non compliance. Pao was seen today for medicae annual wellness. Diagnoses and all orders for this visit: Medicare annual wellness visit, subsequent Fibromyalgia - tiZANidine (ZANAFLEX) 4 mg capsule; Take 1 capsule (4 mg total) by mouth 2 (two) times a day as needed for muscle spasms. - ketorolac (TORADOL) 10 mg tablet; Take 1 tablet (10 mg total) by mouth every 6 (six) hours as needed for pain. Trigeminal neuralgia Encounter for screening mammogram for malignant neoplasm of breast - Mammography screening bilateral with CAD; Future Former smoker - CT low dose lung screening (Annual); Future Encounter for screening for malignant neoplasm of lung in former smoker who quit in past 15 years with 20 pack year history or greater - CT low dose lung screening (Annual); Future Liver lesion - CT abdomen and pelvis without contrast; Future Non-alcoholic fatty liver disease - CT abdomen and pelvis without contrast; Future Return in about 3 months (around 08/19/2025) for fibromyalgia and trigeminal neuralgia . LACY Nichols 05/19/25 1701 documented in [facility] NoteHNO ID: [id number] Author: PALOMO DAVALOS MD Service: ? Author Type: Physician Type: Progress Notes Filed: 04/27/2025 14:30 Note Text: Follow-Up Onabotulinum Toxin A (BotoxTM) for Migraine Indication: Chronic Intractable Migraine Referral Expiration: 12/21/2025 Prior to the initiation of the FIRST treatment with Onabotulinum Toxin A, the patient reported the following average headache frequency over the past 3 MONTHS: Number of moderate-severe migraine days/month: 12 Number of mild migraine days/month: 13 Number of headache free days/month: 5 (120 headache-free hours) After treatment with Onabotulinum Toxin A: Number of moderate-severe migraine days/month: 4 Number of mild migraine days/month: 5 Number of headache free days/month: 21 (504 headache-free hours) Patient reduction in overall migraine days: Yes Patient reduction in moderate-severe migraine days: Yes Patient reduction of headache hours by 100 hours or more: Yes (reduction of 384 hours) Individual has obtained clinical benefit deemed significant by individual or prescriber (Y/N): Yes Patient's quality of life and ability to perform ADLs has improved (Y/N): Yes Wearing off: No The patient has been assessed for disorders which could contribute to breathing or swallowing difficulty, and there is no contraindication with PREEMPT Botox. There is no documented allergic reaction/hypersensitivity to any botulinum toxin and there is no active infection at proposed injection site. HEADACHE SCORES: 02/19/2022 05/28/2022 Headache Questions ER visits since last office visit: 0 0 Hospital stays since last office visit 0 0 Limited ADLs in the last month: 8 Days headache pain free in the last month: 22 Days per month with ALL of the following symptoms - decreased productivity, light sensitivity and nausea: 8 Initial improvement of headache after botox injection at last visit: Very much improved Very much improved PRN medication usage in the last month: 8 Patient impression of improvement since last visit: Very much improved Very much improved 02/19/2022 05/28/2022 HIT-6 HIT-6 64 (Severe impact) Incomplete 02/19/2022 MARIA ESTHER - 2/7 SCORES MARIA ESTHER-2 Score 3 MARIA ESTHER-7 Score 5 04/02/2024 07/08/2024 10/08/2024 PHQ-9 Score 5 5 3 4 BP 117/78 (BP Site: Left Arm, BP Cuff Size: Regular Adult) Pulse 77 Patient name: Pao Lion : 1970 ALLERGIES Allergen Reactions - Biaxin [Clarithromy* GI Upset - Sutures Rash, Hives, Swelling, Itching Specifically, cat gut sutures - Cymbalta [Duloxetin* Swelling Severe abdominal pain - Demerol [Meperidine* Vomiting - Indomethacin Swelling Had 4+ edema in legs and arms the day after taking a new prescription. - Liquid Bandage (Cya* Rash Dermabond/exofin - Morphine Vomiting - Naproxen GI Upset - Penicillins Rash, Hives Patient can tolerate Augmentin - Vancomycin GI Upset - Versed [Midazolam H* Vomiting - Z Pack [Azithromyci* Rash, GI Upset UNIVERSAL PROTOCOL / SAFETY CHECKLIST Procedure: Onabotulinum toxin A for migraine Informed Consent Consent Obtained: Written [place] Protocol A moment to CARE was completed SIGN IN Personnel directly involved with the procedure wore the appropriate PPE Special Equipment: N/A Patient/Surrogate Stated/Verified: Patient name, Date of , Relevant allergies and Intended procedure TIME OUT No relevant labs, photos, and/or imaging studies were applicable for review. Consent documented and matches the intended procedure No correct side/site applicable for marking and visibility. No medications required for procedure. No fire risk assessment and interventions applicable. No implant(s) inserted. SIGN OUT No specimen collected. Written Consent Obtained: Written Injection Sites Left (Units) Left (Sites) Right (Units) Right (Sites) TOTAL (Units) Used Car Make Ready Worker 5 1 5 1 10 Procerus Units: 5 Sites: 1 5 Frontalis 10 2 10 2 20 Temporalis 45 9 40 8 85 Occipitalis 15 3 15 3 30 Cervical PSP 10 2 10 2 20 Trapezius 15 3 15 3 30 Total Units used: 200 Total Units wasted: 0 Prior Therapies Duration of Use Dose Side effect Emad Estemalik, [facility]06-10-2025 History of Present illness Narrative* Palomo Davalos MD - 04/27/2025 2:29 PM EDT Images from the original note were not included. Follow-Up Onabotulinum Toxin A (BotoxTM) for Migraine Indication: Chronic Intractable Migraine Referral Expiration: 12/21/2025 Prior to the initiation of the FIRST treatment with Onabotulinum Toxin A, the patient reported the following average headache frequency over the past 3 MONTHS: Number of moderate-severe migraine days/month: 12 Number of mild migraine days/month: 13 Number of headache free days/month: 5 (120 headache-free hours) After treatment with Onabotulinum Toxin A: Number of moderate-severe migraine days/month: 4 Number of mild migraine days/month: 5 Number of headache free days/month: 21 (504 headache-free hours) Patient reduction in overall migraine days: Yes Patient reduction in moderate-severe migraine days: Yes Patient reduction of headache hours by 100 hours or more: Yes (reduction of 384 hours) Individual has obtained clinical benefit deemed significant by individual or prescriber (Y/N): Yes Patient's quality of life and ability to perform ADLs has improved (Y/N): Yes Wearing off: No The patient has been assessed for disorders which could contribute to breathing or swallowing difficulty, and there is no contraindication with PREEMPT Botox. There is no documented allergic reaction/hypersensitivity to any botulinum toxin and there is no active infection at proposed injection site. HEADACHE SCORES: 02/19/2022 05/28/2022 Headache Questions ER visits since last office visit: 0 0 Hospital stays since last office visit 0 0 Limited ADLs in the last month: 8 Days headache pain free in the last month: 22 Days per month with ALL of the following symptoms - decreased productivity, light sensitivity and nausea: 8 Initial improvement of headache after botox injection at last visit: Very much improved Very much improved PRN medication usage in the last month: 8 Patient impression of improvement since last visit: Very much improved Very much improved 02/19/2022 05/28/2022 HIT-6 HIT-6 64 (Severe impact) Incomplete 02/19/2022 MARIA ESTHER - 2/7 SCORES MARIA ESTHER-2 Score 3 MARIA ESTHER-7 Score 5 04/02/2024 07/08/2024 10/08/2024 PHQ-9 Score 5 5 3 4 BP 117/78 (BP Site: Left Arm, BP Cuff Size: Regular Adult) Pulse 77 Patient name: Pao Lion : 1970 ALLERGIES Allergen Reactions Biaxin [Clarithromy* GI Upset Sutures Rash, Hives, Swelling, Itching Specifically, cat gut sutures Cymbalta [Duloxetin* Swelling Severe abdominal pain Demerol [Meperidine* Vomiting Indomethacin Swelling Had 4+ edema in legs and arms the day after taking a new prescription. Liquid Bandage (Cya* Rash Dermabond/exofin Morphine Vomiting Naproxen GI Upset Penicillins Rash, Hives Patient can tolerate Augmentin Vancomycin GI Upset Versed [Midazolam H* Vomiting Z Pack [Azithromyci* Rash, GI Upset UNIVERSAL PROTOCOL / SAFETY CHECKLIST Procedure: Onabotulinum toxin A for migraine Informed Consent Consent Obtained: Written [place] Protocol A moment to CARE was completed SIGN IN Personnel directly involved with the procedure wore the appropriate PPE Special Equipment: N/A Patient/Surrogate Stated/Verified: Patient name, Date of , Relevant allergies and Intended procedure TIME OUT No relevant labs, photos, and/or imaging studies were applicable for review. Consent documented and matches the intended procedure No correct side/site applicable for marking and visibility. No medications required for procedure. No fire risk assessment and interventions applicable. No implant(s) inserted. SIGN OUT No specimen collected. Written Consent Obtained: Written Injection Sites Left (Units) Left (Sites) Right (Units) Right (Sites) TOTAL (Units) Used Car Make Ready Worker 5 1 5 1 10 Procerus Units: 5 Sites: 1 5 Frontalis 10 2 10 2 20 Temporalis 45 9 40 8 85 Occipitalis 15 3 15 3 30 Cervical PSP 10 2 10 2 20 Trapezius 15 3 15 3 30 Total Units used: 200 Total Units wasted: 0 Prior Therapies Duration of Use Dose Side effect Palomo Davalos MD documented in this encounterM[facility]06-02-[facility]25 History of Present illness Narrative* Jeff Patel APRN-LEAD FABRICATOR - 04/19/2025 2:40 PM EDT Subjective Patient ID: Pao Lion is a 55 y.o. female. SERGE Cedeno presents to the office for follow up on chronic pain. She currently is taking Lyrica 100 mg 3 times a day for fibromyalgia and neuropathy. She reports this does seem to help a little bit with chronic pain syndrome. She reports she begins to get symptoms again before it is even time for her next dosage, however the Lyrica does help significantly. She reports she was just recently diagnosed with small fiber neuropathy by Neurology with [facility], Rheumatology referred her. She reports she has a constant pain of 6 or 7 however it does exacerbate in get up to a 10/10. She is taking baclofen TID for pain, and it is helpful. She takes tizandine PRN for acute pain ,she does not take at the same time. She reports her back pain is currently exacerbated and she is not sure why she plans to discuss her increased pain with [facility]. She reports she chronically has bilateral shoulder pain however her back and neck pain has been worse the last few days. She feels that her neuropathy is also worsening. She has increased tingling and numbness to her bilateral arms and legs. She reports she is having increased left leg numbness and she had foot drop yesterday. She reports the pain is exacerbated so much at this timethat her fingers feel very weak and she is having constant burning to her feet and it feels like frostbite . She reports due to increased pain to her feet she has to stop and rest. She reports she completed physical therapy in the past and it was not very effective she would like to continue doing home exercises on her own. She also reports increased swelling to multiple joints and increased pain she will follow up with Rheumatology Dr. Beltran. She reports she has also primary caregiver of her mother. She would like an updated CT or MRI as she reports she has not had 1 done in several years. She reports she would like imaging completed of both cervical spine and lumbar spine. The following portions of the patient's history were reviewed and updated as appropriate: allergies, current medications, past family history, past medical history, past social history, past surgicalhistory, problem list, and medication reconciliation was completed including current medication andpost discharge medication. Review of Systems Constitutional: Positive for fatigue. Negative for fever. Respiratory: Negative. Cardiovascular: Negative. Musculoskeletal: Positive for arthralgias, back pain, gait problem, myalgias and neck pain. Neurological: Positive for dizziness and numbness. Psychiatric/Behavioral: Negative for self-injury and suicidal ideas. Objective Physical Exam Vitals and nursing note reviewed. Constitutional: General: She is not in acute distress. Appearance: Normal appearance. She is not ill-appearing. HENT: Head: Normocephalic and atraumatic. Neck: Vascular: No carotid bruit. Comments: She has limited range of motion to neck Cardiovascular: Rate and Rhythm: Normal rate and regular rhythm. Pulses: Normal pulses. Heart sounds: Normal heart sounds. Pulmonary: Effort: Pulmonary effort is normal. No respiratory distress. Breath sounds: Normal breath sounds. No stridor. No wheezing, rhonchi or rales. Musculoskeletal: General: Tenderness present. Cervical back: Tenderness present. Right lower leg: No edema. Left lower leg: No edema. Comments: She has tenderness to cervical and lumbar spine with palpation. Skin: Capillary Refill: Capillary refill takes less than 2 seconds. Findings: No erythema or rash. Neurological: General: No focal deficit present. Mental Status: She is alert and oriented to person, place, and time. Psychiatric: Mood and Affect: Mood normal. Behavior: Behavior normal. Assessment/Plan The OARRS/MAPPS database was reviewed today and found to be appropriate. No indication of medication diversion, or non compliance. Continue current regimen for pain with Lyrica, baclofen, and tizanidine if absolutely needed. Ensure to not take baclofen and tizanidine at the same time. Continue to follow up with specialists for chronic pain.. MRI of cervical and lumbar spine ordered due to increased pain. Continue with home exercises, and nonpharmacological interventions. She mentions history of liver concern however, we will discuss imaging and routine screenings at wellness, including the liver. Pao was seen today for follow-up. Diagnoses and all orders for this visit: Fibromyalgia - MR cervical spine without contrast; Future - MR lumbar spine without contrast; Future - pregabalin (LYRICA) 50 mg capsule; Take 2 capsules (100 mg total) by mouth 3 (three) times a day for 90 days. Chronic midline low back pain with bilateral sciatica - MR lumbar spine without contrast; Future Cervical radiculopathy - MR cervical spine without contrast; Future Trigeminal neuralgia - pregabalin (LYRICA) 50 mg capsule; Take 2 capsules (100 mg total) by mouth 3 (three) times a day for 90 days. Other orders - tiZANidine (ZANAFLEX) 4 mg tablet; Take 1 tablet (4 mg total) by mouth as needed in the morning and 1 tablet (4 mg total) as needed in the evening for muscle spasms. Indications: muscle spasm. LACY Nichols 04/22/25 1506 documented in [facility] NoteHNO ID: [id number] Author: ELIZABETH OWEN MA Service: ? Author Type: Cold Saw Operator Type: Progress Notes Filed: 04/13/2025 15:50 Note Text: Patient identified by 2 identifiers. EKG performed as ordered. Elizabeth Owen [facility]05-27-2025 History of Present illness Narrative* Elizabeth Owen MA - 04/13/2025 3:50 PM EDT Patient identified by 2 identifiers. EKG performed as ordered. Elizabeth Owen MA documented in this encounterMari[facility]05-[facility]25 NoteHNO ID: [id number] Author: DARIANA STOCKTON APRN.CNP Service: ? Author Type: Nurse Practitioner Type: Progress Notes Filed: 04/09/2025 15:01 Note Text: [facility] Virtual Visit Follow Up/ Established Patient Visit PATIENT NAME: Pao Lion [place] PatientsLikeMehealth Rules (O.A.C. ): This visit was conducted as a Virtual Visit, with patient's permission, via Zoom. It required patient-provider interaction for the medical decision making as documented below. Patient stated first AND last name: Pao Shafferbrenda Patient stated : 1970 Patient stated current location: [facility] [address] I have communicated my name, Dariana StocktonMAXINE.LEAD FABRICATOR, and active licensure Adult Certified Nurse Practitioner in the Sleep Medicine Center at [facility]. The patient's identity and physical location were verified at the time of this visit. Either the patient or their legal retail wireless sales representative has been informed of the risks and benefits of -- and alternatives to -- treatment through a remote evaluation and consents to proceed with the evaluation remotely. Virtual visits are a convenient way for us to meet, but there are some situations in which an in-person evaluation may be required at a later time. I want to check in to confirm your consent to be seen virtually today. Consent given: Yes Date of last visit : 01/13/25 IMPRESSION: Narcolepsy with cataplexy Clinical Global Impression of Change ( CGI-C) Compared to the patient's condition at baseline, how much has the patient changed? Much improved PLAN: - Continue taking Vyvanse 70 mg as directed. Continue Xywav 4.5 grams twice per night - Avoid driving when drowsy. 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 - Try to get at least 7-9 hours of sleep in a 24 hour period. Healthy diet and exercise can also promote better sleep. - Follow up in 3 months in the office. Recommend scheduling this appointment now to ensure the best time for you. Drew Castellanos MD I spent a total of 20 minutes on the date of the service, which included preparing to see the patient, tems-uu-wizy patient care, completing clinical documentation, performing a medically appropriate examination, counseling and educating the patient/family/caregiver, ordering medications, tests, or procedures, communicating results to the patient/family/caregiver, and care coordination (not separately reported). Drew Castellanos MD CURRENT VISIT: 04/09/2025 Interval history: 1. Concerns: - Narcolepsy and Cataplexy - Patient is a 54-year-old female presenting for follow-up on narcolepsy and cataplexy. - Reports that her condition is stable and well-controlled with current medications. - Currently taking Vyvanse 70 mg every morning, which lasts until around dinner time (between 16:00 and 18:00). - Also taking Xywav, with the first dose around midnight and the second dose approximately 3.5 to 4 hours later. - Falls asleep within 20-30 minutes after each dose of Xywav. - No hangover effect in the morning, but feels tired until Vyvanse kicks in about an hour after waking. - No side effects or adverse reactions reported from either medication. - Denies any significant cataplexy episodes, sleep-related hallucinations, acting out dreams, or injuries at night. - Denies drowsy driving, though occasionally feels tired while driving but does not fall asleep. - No recent episodes of sleep paralysis or vivid dreams. - Recent Illness - Reports recent illness with a stomach virus and exacerbation of IBS symptoms. - Mother recently hospitalized with pneumonia, which patient also contracted. - Napping - Does not take daily naps but may fall asleep briefly in the evening while watching TV. 2. Sleep history: - Overall goals of treatment: Maintain control of narcolepsy and cataplexy symptoms. - Sleep habits: - Typical bedtime: Around 00:00 - Typical wake time: Approximately 08:00 - Time to fall asleep: 15-20 minutes - Nighttime awakening number: Wakes up once to take the second dose of Xywav - Nap schedule: Occasional brief naps in the evening while watching TV Follow up visit for NT1. Relevant study results reviewed as noted below, if applicable. HYPERSOMNIA : Narcolepsy Naps: No Cataplexy: No. Controlled with Xywav. Hypnagogic hallucinations: No Dream enactment behaviors: No Sleep related injuries: No Sleep paralysis: No Vivid dreams: No Drowsy driving: No Current medications: OARRS checked: Yes Vyvanse 70 mg as directed (#90/90d), last filled on 02/22/25 Taken every morning. Lasts her till ~ 2752-2078. Xywav 4.5 grams twice per night ($450/30d), last filled on 03/12/25 First dose ~ 2330-midnight. Second dose 3.5- 4 hours later. Falls asleep quickly. Compliant and benefiting form medications. No side effects or ADRS. [facility] website checke (more content not included)...[facility] 04-02-2025 History of Present illness Narrative* Jeff Patel APRN-LEAD FABRICATOR - 04/02/2025 10:40 AM EDT Subjective Patient ID: Pao Lion is a 54 y.o. female. Video Visit via Real-time Synchronous Audiovisual Provider Location: [facility] [address] [place] [id number] Patient Location: Patient's home Video Visit Consent [...] that there are some limitations compared to rthg-du-xbpi evaluations. The patient consented to the presence of additional virtual and/or in-person participants. We elected to proceed. SERGE Cedeno presents via video visit for cough and phlegm. She reports she 1st began with symptoms 10 days ago but now presents with cough that has progressed into her chest. She reports she has a lot of phlegm and she feels that she is choking on it. She also has a lot of sinus drainage and sore throat. She has increased body aches, fatigue, and weakness. Denies any fever. She reports she has been taking qwbh-orz-aqjpzmx cough and cold decongestion but this does not seem to be helpful. She denies shortness or breath or chest pain. She reports she has been around her mom who was recently sick in the hospital with pneumonia. The following portions of the patient's history were reviewed and updated as appropriate: allergies, current medications, past family history, past medical history, past social history, past surgicalhistory, problem list, and medication reconciliation was completed including current medication andpost discharge medication. Review of Systems Constitutional: Positive for chills and fatigue. Negative for fever. HENT: Positive for congestion, postnasal drip and sore throat. Respiratory: Positive for cough. Negative for shortness of breath and wheezing. Cardiovascular: Negative. Gastrointestinal: Negative. Musculoskeletal: Positive for myalgias. Skin: Negative. Psychiatric/Behavioral: Negative for self-injury and suicidal ideas. Objective Physical Exam Constitutional: Comments: Video visit. She does not appear to be in acute distress. Pulmonary: Effort: Pulmonary effort is normal. Comments: She has a cough. Skin: Capillary Refill: Capillary refill takes less than 2 seconds. Findings: No erythema or rash. Neurological: General: No focal deficit present. Mental Status: She is oriented to person, place, and time. Psychiatric: Mood and Affect: Mood normal. Behavior: Behavior normal. Assessment/Plan Since symptoms have been ongoing for over a week I will go ahead and treat for acute bronchitis with azithromycin and Bromfed. Ensure to stay hydrated. She will let me know if symptoms do not improve. Pao was seen today for cough. Diagnoses and all orders for this visit: Bronchitis Other orders - wrxukuigxqonxod-cldlwybzr-YB 2-30-10 mg/5 mL syrup; Take 5 mL by mouth 4 (four) times a day as needed for allergies, congestion or cough. - azithromycin (ZITHROMAX) 250 mg tablet; Take 1 tablet (250 mg total) by mouth in the morning for 5 days. Take 2 tablets the first day, then 1 tablet daily for 4 days. LACY Nichols 04/04/25 180 documented in this encounterF[facility]05-16-[facility]25 Telephone encounter Note* Telephone Encounter - Gretel Samuel - 04/02/2025 8:26 AM EDT Patient is calling in regards to this, asking if she could speak with someone today in regards to this. [facility]05-16-[facility]25 Miscellaneous Notes* Telephone Encounter - Gretel Samuel - 04/02/2025 8:26 AM EDT Patient is calling in regards to this, asking if she could speak with someone today in regards to this. documented in this encounterMarietta [facility]03-25-2025 Instructions* Patient Instructions* Dheeraj Chen MD - 02/09/2025 4:01 PM EDT We discussed your thrombosed external hemorrhoid: - I performed a procedure today to shelby the thrombosed external hemorrhoid and remove the clot. The surrounding skin may remain swollen for a short time but should gradually improve. - You have two skin tags near the area, which are likely from previous external hemorrhoids. These are not harmful but can swell again in the future if new hemorrhoids develop. - To help prevent future hemorrhoid issues: - Avoid straining during bowel movements. - Limit the time spent on the toilet. - Increase dietary fiber intake to regulate bowel movements. I recommend focusing on fiber-rich foods rather than supplements, as supplements have caused diarrhea for you in the past. - Stay hydrated by drinking plenty of water. - I prescribed hydrocortisone 2.5% cream to help with inflammation during flare- ups. This has been sent to your pharmacy. Use it as directed, especially if you notice early signs of swelling or discomfort. We discussed your history of bowel issues, including diverticulitis and diarrhea: - Managing your bowel movements is moreno to preventing hemorrhoid flare-ups. While fiber is ideal forbalancing bowel consistency, you may also consider Imodium for diarrhea if needed. However, be cautious, as it may lead to constipation. - If you experience a diverticulitis flare-up, antibiotics are only necessary for confirmed inflammation. Minor symptoms may not require treatment and can sometimes improve with a liquid diet for a day or two. Thank you for coming in today. documented in this encounterMarietta [facility]03-25-2025 Telephone encounter Note * Telephone Encounter - Samuel Kern RN - 02/09/2025 1:30 PM EDT She was scheduled with Dr Chen today for an exam. [facility]03-25-2025 Miscellaneous Notes* Telephone Encounter - Samuel Kern RN - 02/09/2025 1:30 PM EDT She was scheduled with Dr Chen today for an exam. documented in this encounterMarietta [facility] Clinic03-25-2025 History of Present illness Narrative* Dheeraj Chen MD - 02/09/2025 11:20 AM EDT [facility] February 09, 2025 Pao Lion 54 year old This consult was requested by Dr. Cali and my final recommendations will be communicated to the requesting health care provider by way of the shared medical record for internal providers or letter viathe [employer] for external providers. Chief Complaint: thrombosed external hemorrhoid History of Present Illness: Pao Lion is a 54 year old woman s/p THD for hemorrhoids (05/2024, Dr. Cali) who presents todayfor evaluation of thrombosed external hemorrhoid. She reports a painful, bluish external hemorrhoid that began two days ago. She describes the pain as severe last night but notes some improvement today. She is concerned about the possibility of a thrombosed hemorrhoid and inquires about treatment options to prevent recurrence. Patient has been managing her symptoms with stool softeners (Colace 100 mg daily) and increased fluid intake. She recently discontinued low-dose naltrexone, prescribed for fibromyalgia, due to concerns that it was exacerbating her constipation. She reports a variable bowel movement pattern, alternating between constipation and diarrhea, with multiple bowel movements per day. She denies spending prolonged periods on the toilet and has not used fiber supplements recently due to previous episodes of diarrhea. She reports very rare episodes of rectal bleeding. Patient has a history of diverticulitis with multiple flare-ups and inquires about the necessity ofsurgical intervention. She also has a family history of diverticulitis requiring surgery. She reports that she does not always treat minor flare-ups with antibiotics, reserving treatment for episodesof intolerable pain. Had negative cologuard test in 2022. PAST MEDICAL HISTORY Diagnosis Date Dyslipidemia Fracture Hearing difficulty bilateral bone achored hearing aids - implants Hyperglycemia Hypothyroidism Migraine Narcolepsy Mild Osteopenia PMH - PAST MEDICAL HISTORY OF Thyroid problems PMH - PAST MEDICAL HISTORY OF rt. rotator cuff POTS (postural orthostatic tachycardia syndrome) Radiculopathy lower, right moderate, left mild Sleep apnea Trigeminal neuralgia Left PAST SURGICAL HISTORY Procedure Laterality Date ABDOMINOPLASTY UMBILICAL TRANSPOSITION AND FASCIAL 06/2017 LIG/TRNSXJ FLP TUBE ABDL/VAG APPR UNI/BI PAST SURGICAL HISTORY OF Ear surgery tubes PAST SURGICAL HISTORY OF deviated septum PAST SURGICAL HISTORY OF 2004 hysterectomy, vaginal taping PAST SURGICAL HISTORY OF epideral back injections PAST SURGICAL HISTORY OF Rt. rotator cuff repair PAST SURGICAL HISTORY OF 06/25/2011 IMPLANT OSSEOINTEGRATED IMPLANT TEMPORAL BONE W/ PERC ATTACH TO STIMULATOR W/O MASTOIDECTOMY PAST SURGICAL HISTORY OF 2012 right rotator cuff repair PAST SURGICAL HISTORY OF 2005 ovaries and fallopian tubes removed PAST SURGICAL HISTORY OF 11/2014 Interstim REPAIR INGUINAL HERNIA Right 07/30/2024 ROTATOR CUFF REPAIR Left TONSILLECTOMY & ADENOIDECTOMY AGE 14/> Current Outpatient Medications Medication Sig Dispense Refill lisdexamfetamine (VYVANSE) 70 mg capsule Take (1) capsule by mouth upon awakening 90 capsule 0 XYWAV 0.5 gram/mL soln oral liquid Take 9 mL by mouth at bedtime and 4 hours after. 540 mL 5 carBAMazepine (TEGRETOL) 200 mg tablet Take 2 tablets by mouth three times a day. 180 tablet 11 keTORolac (TORADOL) 60 mg/2 mL soln INJECT 2ML INTRAMUSCULARLY ONE TIME ONLY FOR 1 DOSE 15 mL 3 ondansetron (ZOFRAN) 8 mg tablet Take by mouth three times a day as needed. levothyroxine (SYNTHROID) 50 mcg tablet TAKE 1 TABLET BY MOUTH SATURDAY THROUGH SATURDAY. SKIP SATURDAY. dexAMETHasone sodium phosphate (DECADRON) 4 mg/mL injection INJECT 1ML (4MG) INTRAMUSCULARLY EVERY 6 HOURS NEEDED FOR ADRENAL STRESS, USE WHEN VOMITING OR DIARRHEA PREVENTS USE OF THE ORAL DOSE. desmopressin acetate (DDAVP) 0.1 mg tablet Take 0.1 mg by mouth three times daily. liothyronine (CYTOMEL) 5 mcg tablet Take 5 mcg by mouth twice daily. ezetimibe (ZETIA) 10 mg tablet Take 10 mg by mouth every morning. REPATHA SURECLICK 140 mg/mL pen injector INJECT 140 MG UNDER THE SKIN EVERY 2 WEEKS hydrOXYzine HCl (ATARAX) 25 mg tablet Take 25 mg by mouth as needed. omeprazole (PRILOSEC) 40 mg capsule Take 40 mg by mouth as needed. SUMAtriptan (IMITREX) 100 mg tablet Take 100 mg by mouth. esterified estrogens-methylTESTOSTERone (ESTRATEST) 1.25-2.5 mg per tablet Take 1 tablet by mouth once daily. tiZANidine (ZANAFLEX) 4 mg tablet Take 4 mg by mouth as needed. hydrocortisone 2.5 % ointment Apply to affected area two times a day. 28 g 1 lisdexamfetamine (VYVANSE) 70 mg capsule Take 1 capsule by mouth once daily for 30 days. 30 capsule0 No current facility-administered medications for this visit. ALLERGIES Allergen Reactions Biaxin [Clarithromy* GI Upset Sutures Rash, Hives, Swelling, Itching Specifically, cat gut sutures Cymbalta [Duloxetin* Swelling Severe abdominal pain Demerol [Meperidine* Vomiting Indomethacin Swelling Had 4+ edema in legs and arms the day after taking a new prescription. Liquid Bandage (Cya* Rash Dermabond/exofin Morphine Vomiting Naproxen GI Upset Penicillins Rash, Hives Patient can tolerate Augmentin Vancomycin GI Upset Versed [Midazolam H* Vomiting Z Pack [Azithromyci* Rash, GI Upset FAMILY HISTORY Problem Relation Age of Onset Heart Mother TIA Heart Father COPD Father Headache Sister Asthma Brother Asthma Daughter Cancer Son hodgkins lymphoma Asthma Son Headache Other niece Difficulty with anesthesia No Family History Social History Tobacco Use Smoking status: Former Current packs/day: 0.00 Average packs/day: 1 pack/day for 18.0 years (18.0 ttl pk-yrs) Types: Cigarettes Start date: 09/27/1976 Quit date: 09/27/1994 Years since quittin.3 Smokeless tobacco: Never Vaping Use Vaping status: Never Used Substance Use Topics Alcohol use: Not Currently Drug use: No Comment: denies tx for drug/alcohol abuse in the past. Physical Exam: BP 120/79 (BP Position: Sitting) Pulse 78 Ht 153.7 cm (5' 0.5 ) Wt 62.8 kg (138 lb 7.2 oz) BMI 26.59 kg/m General Appearance: Well appearing, alert, in no acute distress, well-hydrated, well nourished. Anorectal: External exam reveals moderate sized left lateral LD. +two skin tags. Digital rectal exam and anoscopy deferred Sausage Grinder present: Yes UNIVERSAL PROTOCOL / SAFETY CHECKLIST Procedure to be Performed: LD enucleation Sign In: A Moment of CARE was completed. Appropriate PPE (Personal Protective Equipment) worn by all providers involved with the procedure. Special equipment not required. Patient/Surrogate Stated/Verified: Patient name, Date of , Relevant allergies, and The intended procedure Time Out: Relevant labs, photos, and/or imaging studies have been reviewed. Intended patient and procedure match the source document(s) (e.g. consent, H&P, associated studies [imaging, pathology]) match the intended patient and procedure. Consent obtained and matches the intended procedure. Yes. Correct side/site is not applicable. Medications required for this procedure are verified. Fire risk assessed and is not applicable. Implants: are not applicable. Sign Out: Specimens not collected. All instruments, equipment, possible retained foreign bodies are accounted for. Yes. The post-procedure plan of care has been communicated to the patient or surrogate. Procedure Note Pre-operative diagnosis: Thrombosed external hemorrhoid Post-operative diagnosis: same Anesthesia: 2% lidocaine with 1:100,000 epinephrine. Indications: The patient presented with a thrombosed external hemorrhoid Procedure: Enucleation of thrombosed external hemorrhoid The perineal skin was cleansed with betadine. The surface of the thrombosed external hemorrhoid wasinfiltrated with 2% lidocaine with epinephrine. The thrombosed external hemorrhoid was deroofed andthe clot was removed. A dressing was applied. Patient tolerated the procedure well The sensitive examination was discussed with the Patient or Patient's Authorized Wash Oil Cooler Operator. Asapplicable, any other physician, advance practice provider, medical student, or other health professional student that will be observing or involved in the sensitive examination for educational or training purposes was discussed with the Patient or Authorized Wash Oil Cooler Operator. The Patient or Authorized Wash Oil Cooler Operator has agreed to proceed with the sensitive examination. (Sensitive examination includes inspection and/or palpation of the breasts, pelvis, prostate and anorectal regions) Assessment Assessment and Plan: Pao Loin is a 54 year old woman s/p THD for hemorrhoids (05/2024, Dr. Cali) presenting with LD s/p enucleation in office today. - Review of preventive measures to optimize bowel movements/toilet habits and prevent future hemorrhoid flare-ups. - prn hydrocortisone cream 2.5% for topical application. - prn sitz baths RTC prn Medical Decision Making: Data Reviewed: Tests & Documents Reviewed/ordered: Review of prior notes from [facility] Review of prior operative reports Review of Labs: felicia I have independently interpreted: n/a I have discussed Pao Lion's treatment plan and/or results with patient. Risk of morbidity, mortality and/or complications of treatment plan: dom Chen MD Colorectal Surgery documented in this encounterMari[facility]03-25-2025 NoteHNO ID: [id number] Author: DHEERAJ CHEN MD Service: ? Author Type: Physician Type: Progress Notes Filed: 02/09/2025 16:02 Note Text: [facility] NOTE February 09, 2025 Pao Lion 54 year old This consult was requested by Dr. Cali and my final recommendations will be communicated to the requesting health care provider by way of the shared medical record for internal providers or letter via the [employer] for external providers. Chief Complaint: thrombosed external hemorrhoid History of Present Illness: Pao Lion is a 54 year old woman s/p THD for hemorrhoids (05/2024, Dr. Cali) who presents today for evaluation of thrombosed external hemorrhoid. She reports a painful, bluish external hemorrhoid that began two days ago. She describes the pain as severe last night but notes some improvement today. She is concerned about the possibility of a thrombosed hemorrhoid and inquires about treatment options to prevent recurrence. Patient has been managing her symptoms with stool softeners (Colace 100 mg daily) and increased fluid intake. She recently discontinued low-dose naltrexone, prescribed for fibromyalgia, due to concerns that it was exacerbating her constipation. She reports a variable bowel movement pattern, alternating between constipation and diarrhea, with multiple bowel movements per day. She denies spending prolonged periods on the toilet and has not used fiber supplements recently due to previous episodes of diarrhea. She reports very rare episodes of rectal bleeding. Patient has a history of diverticulitis with multiple flare-ups and inquires about the necessity of surgical intervention. She also has a family history of diverticulitis requiring surgery. She reports that she does not always treat minor flare-ups with antibiotics, reserving treatment for episodes of intolerable pain. Had negative cologuard test in 2022. PAST MEDICAL HISTORY Diagnosis Date Dyslipidemia Fracture Hearing difficulty bilateral bone achored hearing aids - implants Hyperglycemia Hypothyroidism Migraine Narcolepsy Mild Osteopenia PMH - PAST MEDICAL HISTORY OF Thyroid problems PMH - PAST MEDICAL HISTORY OF rt. rotator cuff POTS (postural orthostatic tachycardia syndrome) Radiculopathy lower, right moderate, left mild Sleep apnea Trigeminal neuralgia Left PAST SURGICAL HISTORY Procedure Laterality Date ABDOMINOPLASTY UMBILICAL TRANSPOSITION AND FASCIAL 06/2017 LIG/TRNSXJ FLP TUBE ABDL/VAG APPR UNI/BI PAST SURGICAL HISTORY OF Ear surgery tubes PAST SURGICAL HISTORY OF deviated septum PAST SURGICAL HISTORY OF 2004 hysterectomy, vaginal taping PAST SURGICAL HISTORY OF epideral back injections PAST SURGICAL HISTORY OF Rt. rotator cuff repair PAST SURGICAL HISTORY OF 06/25/2011 IMPLANT OSSEOINTEGRATED IMPLANT TEMPORAL BONE W/ PERC ATTACH TO STIMULATOR W/O MASTOIDECTOMY PAST SURGICAL HISTORY OF 2012 right rotator cuff repair PAST SURGICAL HISTORY OF 2005 ovaries and fallopian tubes removed PAST SURGICAL HISTORY OF 11/2014 Interstim REPAIR INGUINAL HERNIA Right 07/30/2024 ROTATOR CUFF REPAIR Left TONSILLECTOMY AND ADENOIDECTOMY AGE 14/> Current Outpatient Medications Medication Sig Dispense Refill lisdexamfetamine (VYVANSE) 70 mg capsule Take (1) capsule by mouth upon awakening 90 capsule 0 XYWAV 0.5 gram/mL soln oral liquid Take 9 mL by mouth at bedtime and 4 hours after. 540 mL 5 carBAMazepine (TEGRETOL) 200 mg tablet Take 2 tablets by mouth three times a day. 180 tablet 11 keTORolac (TORADOL) 60 mg/2 mL soln INJECT 2ML INTRAMUSCULARLY ONE TIME ONLY FOR 1 DOSE 15 mL 3 ondansetron (ZOFRAN) 8 mg tablet Take by mouth three times a day as needed. levothyroxine (SYNTHROID) 50 mcg tablet TAKE 1 TABLET BY MOUTH SATURDAY THROUGH SATURDAY. SKIP SATURDAY. dexAMETHasone sodium phosphate (DECADRON) 4 mg/mL injection INJECT 1ML (4MG) INTRAMUSCULARLY EVERY 6 HOURS NEEDED FOR ADRENAL STRESS, USE WHEN VOMITING OR DIARRHEA PREVENTS USE OF THE ORAL DOSE. desmopressin acetate (DDAVP) 0.1 mg tablet Take 0.1 mg by mouth three times daily. liothyronine (CYTOMEL) 5 mcg tablet Take 5 mcg by mouth twice daily. ezetimibe (ZETIA) 10 mg tablet Take 10 mg by mouth every morning. REPATHA SURECLICK 140 mg/mL pen injector INJECT 140 MG UNDER THE SKIN EVERY 2 WEEKS hydrOXYzine HCl (ATARAX) 25 mg tablet Take 25 mg by mouth as needed. omeprazole (PRILOSEC) 40 mg capsule Take 40 mg by mouth as needed. SUMAtriptan (IMITREX) 100 mg tablet Take 100 mg by mouth. esterified estrogens-methylTESTOSTERone (ESTRATEST) 1.25-2.5 mg per tablet Take 1 tablet by mouth once daily. tiZANidine (ZANAFLEX) 4 mg tablet Take 4 mg by mouth as needed. hydrocortisone 2.5 % ointment Apply to affected area two times a day. 28 g 1 lisdexamfetamine (VYVANSE) 70 mg capsule Take 1 capsule by mouth once daily for 30 days. 30 capsule 0 (more content not included)...[facility] 01-25-2025 [facility] [place] [address] Ultrasound Report Signed Patient: Pao Lion MR#: [id number] : 1970 Acct:[id number] Age/Sex: 54 / F ADM Date: 5 Loc: Room: Type: [facility] Attending Dr: Yamila Matta BAND SHOVER-C Ordering Provider: Yamila Matta CNP Date of Service: 01/22/25 US/US art pvr/post LE: I73.9 Copies to: Yamila Matta CNP~ LOWER EXTREMITY SEGMENTAL ARTERIAL DOPSCAN (PVR) INDICATION: Claudication and pain in the feet while walking. PROCEDURE: Right arm blood pressure is 121 , left is 112 . Pressures throughout the right leg are 166 at the high thigh, at the 178 low thigh, 137 at the calf, 135 at the ankle using the posterior tibial artery, and 130 at the ankle using the dorsalis pedis artery with ankle-brachial index of 1.121.07 . Pressures throughout the left leg are 170 at the high thigh, at the 155 low thigh, 161 at the calf and 135 at the ankle using the posterior tibial artery, and 140 at the ankle using the dorsalis pedis artery with ankle-brachial index of 1.12 1.16. Wave forms by plethysmography are normal. US/US art pvr/post LE IMPRESSION: NO HEMODYNAMICALLY SIGNIFICANT PERIPHERAL VASCULAR OCCLUSIVE DISEASE AT REST IN EITHER LOWER EXTREMITY. There was no change with exercise. Impression dictated by: Jacky Vera MD01/25/2025 1:32 PM Dictation Location: [place] [address] Tech: Susannah Haq Transcribed By: CATIA 01/25/251331 Dictated By: Jacky Vera MD 01/25/251329 Signed By: 01/25/251331 [facility] Work Phone: 1(260) 105-431103-10-2025 Radiology Diagnostic study [facility] [place] [address] Ultrasound Report Signed Patient: Pao Lion MR#: [id number] : 1970 Acct:[id number] Age/Sex: 54 / F ADM Date: 5 Loc: Room: Type: [facility] Attending Dr: Yamila Matta BAND SHOVER-C Ordering Provider: Yamila Matta CNP Date of Service: 01/22/25 US/US carotid doppler BI: R42 Copies to: Yamila Matta CNP~ CAROTID DUPLEX INDICATION: Carotid bruit. PROCEDURE: Color-flow duplex scanning is used to interrogate the extracranial carotid arterial system, as well as both vertebral arteries. The proximal rightinternal carotid artery shows a highest peak systolic velocity of 69.8 cm/s withan end-diastolic velocity of 22.8 cm/s . The mid internal carotid artery measures 119 cm/s peak systolic with an end-diastolic velocity of 43.4 cm/s . The distal segment measures 96.7 cm/s peak systolic with an end diastolic velocity of 39.2 cm/s . The velocities of the right common carotid artery are 120 cm/s peak systolic and 28 cm/s end-diastolic proximallyand 85.1 cm/s peaksystolic and 23.6 cm/s end-diastolic distally. The peak systolic velocity ratioofthe internal to the common carotid artery is 0.99 . The right external carotid artery measures 97.5cm/s peak systolic. The right vertebral artery ispatent at 44.7 cm/s peak systolic and with antegrade flow. The proximal left internal carotid artery shows a highest peak systolic velocityof 74.3 cm/s with an end-diastolic velocity of 25.2 cm/s . The mid internal carotid artery measures 86.2 cm/s peak systolic with an end-diastolic velocity of 34.3 cm/s . The distal segment measures 92.5 cm/s peak systolic with an end diastolic velocity of 35.7 cm/s . The velocities of the left common carotidartery [id number] cm/s peak systolic and 25.2 cm/s end-diastolic proximally and 90 cm/s peak systolic and 24.7 cm/s end-diastolic distally. The peak systolic velocity ratio of the internal to the common carotid artery is 0.76 . The left external carotid artery measures 74.7 cm/s peak systolic. The left vertebralartery is patent at 43.8 cm/s peak systolic with antegrade flow. US/US carotid doppler BI IMPRESSION: NO HEMODYNAMICALLY SIGNIFICANT STENOSIS OF EITHER EXTRACRANIAL INTERNAL CAROTID ARTERY. BOTH VERTEBRAL ARTERIES ARE PATENT WITH ANTEGRADE FLOW. Impression dictated by: Jacky Vera MD01/25/2025 1:28 PM [facility] Tech: Eda Dilma Transcribed By: [facility] 01/25/25 1328 Dictated By: Jacky Vera MD 01/25/25 1327 Signed By: 01/25/25 1328 [facility] Work Phone: [phone]) 908-331202-28-2025 Miscellaneous Notes* Telephone Encounter - Martha Main RN - 01/15/2025 4:02 PM EST Contract: [id number] Patient had virtual appointment yesterday with PCP Patient was seen for chronic pain issues Was prescribed Pregabalin 100mg to take three times a day Patient voiced that PCP offered to also order Baclofen for spasms if she would like- Patient states that at the time of appointment patient was not certain about that medication and wanted to research it After researching medication, patient would like to be started on this medication as well Patient was not aware that office was already closed and did not want her PCP paged- she voiced that she will just call office back on Saturday Reason for Disposition Prescription request for new medicine (not a refill) Protocols used: Medication Refill and Renewal Call-A-AH [facility] Telephone encounter Note* Telephone Encounter - Martha Main RN - 01/15/2025 4:02 PM EST Contract: [id number] Patient had virtual appointment yesterday with PCP Patient was seen for chronic pain issues Was prescribed Pregabalin 100mg to take three times a day Patient voiced that PCP offered to also order Baclofen for spasms if she would like- Patient states that at the time of appointment patient was not certain about that medication and wanted to research it After researching medication, patient would like to be started on this medication as well Patient was not aware that office was already closed and did not want her PCP paged- she voiced that she will just call office back on Saturday Reason for Disposition Prescription request for new medicine (not a refill) Protocols used: Medication Refill and Renewal Call-A-AH [facility]02-27-[facility] History of Present illness Narrative* Jeff Patel APRN-LAURI - 01/14/2025 2:40 PM EST Subjective Patient ID: Pao Lion is a 54 y.o. female. Telephone Visit via Real-time Audio-only Provider Location: Login Department Patient Location: Patient's home Telephone Visit Consent Statement: I discussed risks, benefits, and alternatives of a real-time synchronous audio consultation with the patient (and any accompanying persons) including the risks thatthe patient's personal health details and medical records will be discussed over real-time, synchronous, audio-only telecommunication technology, and that there are some limitations compared to [id number] evaluations. We elected to proceed. Total time spent on the phone with the patient: 8 minutes. SERGE Cedeon presents via telephone visit to discuss chronic pain. She currently is taking Lyrica 100 mg 3 times a day for fibromyalgia. She reports this does seem to help a little bit with chronic pain syndrome. She reports she begins to get symptoms again before it is even time for her next dosage, however the Lyrica does help significantly. She reports she was just recently diagnosed with small fiber neuropathy by Neurology with [facility], Rheumatology referred her. She is now on a new medication naltrexone for this, however she will continue follow up with neurology to determine if this needs to be continued, as she does not feel that it is helping. She admits to generalized body spasms, and chronic back and neck pain from injury, thoraic outlet syndrome. She typically takes tizanidine as needed for this however due to increased fatigue she has not been taking. We discuss alternative muscle relaxer treatment, Flexeril it did not seem to be effective in the past. She believes she was on baclofen in the past as well but unsure if this caused reaction, I do not have it on her allergy list, however she will try to look back through her recordsand try to verify. The following portions of the patient's history were reviewed and updated as appropriate: allergies, current medications, past family history, past medical history, past social history, past surgicalhistory, problem list, and medication reconciliation was completed including current medication andpost discharge medication. Review of Systems Constitutional: Positive for fatigue. Negative for fever. Respiratory: Negative. Cardiovascular: Negative. Musculoskeletal: Positive for arthralgias, back pain, gait problem, myalgias and neck pain. Neurological: Positive for dizziness and numbness. Psychiatric/Behavioral: Negative for self-injury and suicidal ideas. Objective Physical Exam Constitutional: Comments: Telephone visit. Answering and interacting appropriately. Neurological: General: No focal deficit present. Mental Status: She is alert and oriented to person, place, and time. Psychiatric: Mood and Affect: Mood normal. Behavior: Behavior normal. Assessment/Plan The OARRS/MAPPS database was reviewed today and found to be appropriate.No indication of medicationdiversion, or non compliance. Refill sent on Lyrica. We discussed possible need for alternative muscle relaxer d/t side effects of drowsiness. She will verify baclofen and let me know. Continue to follow up with specialists. Follow up 3 months for chronic pain syndrome. Diagnoses and all orders for this visit: Fibromyalgia - pregabalin (LYRICA) 50 mg capsule; Take 2 capsules (100 mg total) by mouth 3 (three) times a day for 30 days. Small fiber neuropathy LACY Nichols 01/14/25 1656 documented in this encounterGrace Cottage HospitalSED Web [facility] [id number] NoteHNO ID: [id number] Author: DREW CASTELLANOS MD Service: ? 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 Down from 04/27 to 02/25 No ADR No driving No cataplexy SLEEP HYGIENE QUESTIONS: Bedtime : [place] Wake up Time : 7-9 am Time it takes to fall sleep : < 15 minutes Activities in bed before falling asleep : None Number of times patient wakes up per night : 1 Reason (s) why patient wakes up during the night : medication Estimated total sleep time ( in a 24 hour period of time) : 7-8 Naps : Yes PATIENT-ENTERED QUESTIONNAIRE SLEEP SCORES 10/12/2024 Sleep Questions Reason for visit: Difficulty falling or staying asleep or poor sleep quality Excessive daytime sleepiness Narcolepsy Abnormal sleep/wake timing Multiple values from one day are sorted in reverse-chronological order 04/02/2024 07/08/2024 10/08/2024 [place] Sleepiness Scale Score 13 (Excessive daytime sleepiness present) 15 (Excessive daytime sleepiness present) 14 (Excessive daytime sleepiness present) 04/02/2024 07/08/2024 10/08/2024 PROMIS CAT Sleep Disturbance PROMIS Sleep Disturbance T-Score 44 (within normal limits) 45 (within normal limits) 49 (within normal limits) PROMIS Sleep Disturbance Percentile 73 69 54 06/27/2020 Insomnia Severity Index Score 28 06/27/2020 07/13/2022 Restless Leg Syndrome Score 16 (Moderate symptoms) 16 (Moderate symptoms) 04/02/2024 07/08/2024 10/08/2024 PHQ-9 Score 5 5 3 4 04/02/2024 07/08/2024 10/08/2024 PROMIS Global Health - (T-Scores - the mean of general population = 50. Five points is a clinically meaningful difference.) Physical T-Score 39.8 39.8 37.4 39.8 Mental T-Score 45.8 45.8 41.1 45.8 PMH, PSH, SH: POTS flare-up SLEEP RELATED ROS Review of Systems ALLERGIES Allergen Reactions Biaxin [Clarithromy* GI Upset Sutures Rash, Hives, Swelling, Itching Specifically, cat gut sutures Cymbalta [Duloxetin* Swelling Severe abdominal pain Demerol [Meperidine* Vomiting Indomethacin Swelling Had 4+ edema in legs and arms the day after taking a new prescription. Liquid Bandage (Cya* Rash Dermabond/exofin Morphine Vomiting Naproxen GI Upset Penicillins Rash, Hives Patient can tolerate Augmentin Vancomycin GI Upset Versed [Midazolam H* Vomiting Z Pack [Azithromyci* Rash, GI Upset CURRENT MEDICATIONS: lisdexamfetamine (VYVANSE) 70 mg capsule Take 1 capsule by mouth once daily for 30 days. Patient should start on December 26, 2024. XYWAV 0.5 gram/mL soln oral liquid Take 9 mL by mouth at bedtime and 4 hours after. carBAMazepine (TEGRETOL) 200 mg tablet Take 2 tablets by mouth three times a day. keTORolac (TORADOL) 60 mg/2 mL soln INJECT 2ML INTRAMUSCULARLY ONE TIME ONLY FOR 1 DOSE ondansetron (ZOFRAN) 8 mg tablet Take by mouth three times a day as needed. levothyroxine (SYNTHROID) 50 mcg tablet TAKE 1 TABLET BY MOUTH SATURDAY THROUGH SATURDAY. SKIP SATURDAY. dexAMETHasone sodium phosphate (DECADRON) 4 mg/mL injection INJECT 1ML (4MG) INTRAMUSCULARLY EVERY 6 HOURS NEEDED FOR ADRENAL STRESS, USE WHEN VOMITING OR DIARRHEA PREVENTS USE OF THE ORAL DOSE. liothyronine (CYTOMEL) 5 mcg tablet Take 5 mcg by mouth twice daily. ezetimibe (ZETIA) 10 mg tablet Take 10 mg by mouth every morning. REPATHA SURECLICK 140 mg/mL pen injector INJECT 140 MG UNDER THE SKIN EVERY 2 WEEKS hydrOXYzine HCl (ATARAX) 25 mg tablet Take 25 mg by mouth as needed. omeprazole (PRILOSEC) 40 mg capsule Take 40 mg by mouth as needed. SUMAtriptan (IMITREX) 100 mg tablet Take 100 mg by mouth. esterified estrogens-methylTESTOSTERone (ESTRATEST) 1.25-2.5 mg per tablet Take 1 tablet by mouth once daily. tiZANidine (ZANAFLEX) 4 mg tablet Take 4 mg by mouth as needed. lisdexamfetamine (VYVANSE) 70 mg capsule Take 1 capsule by mouth once daily for 30 days. [START ON 01/25/2025] lisdexamfetamine (VYVANSE) 70 mg capsule Take 1 capsule by mouth once daily for 30 days. Patient should start on January 25, 2025. Milnacipran (SAVELLA) 12.5 mg tab Take 12.5 mg by mouth once daily. desmopressin acetate (DDAVP) 0.1 mg tablet Take 0.1 mg by mouth three times daily. Prior Hypersomnia/Narcolepsy Medications (20 years) 12/26/2024 Hypersomnia/Narcolepsy Medications lisdexamfetamine dimesylate 70 mg DAILY ORAL -Rx End lisdexamfetamine dimesylate 70 mg DAILY ORAL sodium,calcium,mag,pot oxybate 4.5 g BEDTIME AND 4 HOURS AFTER ORAL Details Outpatient prescription Medication marked as long-term Prior RLS Medications (last 20 years) 08/02/2024 23:59 RLS Medications oxycodone HCl 5 mg q 8 H PRN ORAL -Rx End Details Outpatient prescription Prior Insomnia Medications (last 20 years) 08/06/2018 23:59 Insomnia Medication (more content not included)...[facility] 01-13-2025 History of Present illness Narrative* Drew Castellanos MD - 01/13/2025 4:07 PM EST Images from the original note were not included. 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 Down from 6/10 to 02/25 No ADR No driving No cataplexy SLEEP HYGIENE QUESTIONS: Bedtime : MN Wake up Time : 7-9 am Time it takes to fall sleep : < 15 minutes Activities in bed before falling asleep : None Number of times patient wakes up per night : 1 Reason (s) why patient wakes up during the night : medication Estimated total sleep time ( in a 24 hour period of time) : 7-8 Naps : Yes PATIENT-ENTERED QUESTIONNAIRE SLEEP SCORES 10/12/2024 Sleep Questions Reason for visit: Difficulty falling or staying asleep or poor sleep quality Excessive daytime sleepiness Narcolepsy Abnormal sleep/wake timing Multiple values from one day are sorted in reverse-chronological order 04/02/2024 07/08/2024 10/08/2024 [place] Sleepiness Scale Score 13 (Excessive daytime sleepiness present) 15 (Excessive daytime sleepiness present) 14 (Excessive daytime sleepiness present) 04/02/2024 07/08/2024 10/08/2024 PROMIS CAT Sleep Disturbance PROMIS Sleep Disturbance T-Score 44 (within normal limits) 45 (within normal limits) 49 (within normal limits) PROMIS Sleep Disturbance Percentile 73 69 54 06/27/2020 Insomnia Severity Index Score 28 06/27/2020 07/13/2022 Restless Leg Syndrome Score 16 (Moderate symptoms) 16 (Moderate symptoms) 04/02/2024 07/08/2024 10/08/2024 PHQ-9 Score 5 5 3 4 04/02/2024 07/08/2024 10/08/2024 PROMIS Global Health - (T-Scores - the mean of general population = 50. Five points is a clinicallymeaningful difference.) Physical T-Score 39.8 39.8 37.4 39.8 Mental T-Score 45.8 45.8 41.1 45.8 PMH, PSH, SH: POTS flare-up SLEEP RELATED ROS Review of Systems ALLERGIES Allergen Reactions Biaxin [Clarithromy* GI Upset Sutures Rash, Hives, Swelling, Itching Specifically, cat gut sutures Cymbalta [Duloxetin* Swelling Severe abdominal pain Demerol [Meperidine* Vomiting Indomethacin Swelling Had 4+ edema in legs and arms the day after taking a new prescription. Liquid Bandage (Cya* Rash Dermabond/exofin Morphine Vomiting Naproxen GI Upset Penicillins Rash, Hives Patient can tolerate Augmentin Vancomycin GI Upset Versed [Midazolam H* Vomiting Z Pack [Azithromyci* Rash, GI Upset CURRENT MEDICATIONS: lisdexamfetamine (VYVANSE) 70 mg capsule Take 1 capsule by mouth once daily for 30 days. Patient should start on December 26, 2024. XYWAV 0.5 gram/mL soln oral liquid Take 9 mL by mouth at bedtime and 4 hours after. carBAMazepine (TEGRETOL) 200 mg tablet Take 2 tablets by mouth three times a day. keTORolac (TORADOL) 60 mg/2 mL soln INJECT 2ML INTRAMUSCULARLY ONE TIME ONLY FOR 1 DOSE ondansetron (ZOFRAN) 8 mg tablet Take by mouth three times a day as needed. levothyroxine (SYNTHROID) 50 mcg tablet TAKE 1 TABLET BY MOUTH SATURDAY THROUGH SATURDAY. SKIP SATURDAY. dexAMETHasone sodium phosphate (DECADRON) 4 mg/mL injection INJECT 1ML (4MG) INTRAMUSCULARLY EVERY 6 HOURS NEEDED FOR ADRENAL STRESS, USE WHEN VOMITING OR DIARRHEA PREVENTS USE OF THE ORAL DOSE. liothyronine (CYTOMEL) 5 mcg tablet Take 5 mcg by mouth twice daily. ezetimibe (ZETIA) 10 mg tablet Take 10 mg by mouth every morning. REPATHA SURECLICK 140 mg/mL pen injector INJECT 140 MG UNDER THE SKIN EVERY 2 WEEKS hydrOXYzine HCl (ATARAX) 25 mg tablet Take 25 mg by mouth as needed. omeprazole (PRILOSEC) 40 mg capsule Take 40 mg by mouth as needed. SUMAtriptan (IMITREX) 100 mg tablet Take 100 mg by mouth. esterified estrogens-methylTESTOSTERone (ESTRATEST) 1.25-2.5 mg per tablet Take 1 tablet by mouth once daily. tiZANidine (ZANAFLEX) 4 mg tablet Take 4 mg by mouth as needed. lisdexamfetamine (VYVANSE) 70 mg capsule Take 1 capsule by mouth once daily for 30 days. [START ON 01/25/2025] lisdexamfetamine (VYVANSE) 70 mg capsule Take 1 capsule by mouth once daily for 30 days. Patient should start on January 25, 2025. Milnacipran (SAVELLA) 12.5 mg tab Take 12.5 mg by mouth once daily. desmopressin acetate (DDAVP) 0.1 mg tablet Take 0.1 mg by mouth three times daily. Prior Hypersomnia/Narcolepsy Medications (20 years) 12/26/2024 Hypersomnia/Narcolepsy Medications lisdexamfetamine dimesylate 70 mg DAILY ORAL -Rx End lisdexamfetamine dimesylate 70 mg DAILY ORAL sodium,calcium,mag,pot oxybate 4.5 g BEDTIME AND 4 HOURS AFTER ORAL Details Outpatient prescription Medication marked as long-term Prior RLS Medications (last 20 years) 08/02/2024 23:59 RLS Medications oxycodone HCl 5 mg q 8 H PRN ORAL -Rx End Details Outpatient prescription Prior Insomnia Medications (last 20 years) 08/06/2018 23:59 Insomnia Medications diazepam 5 mg q 6 H PRN Muscle spasm ORAL -Discontinued Patient not taking as of 06/06/2018 4:12 PM Patient has taken differently 5 mg AT BEDTIME as of 09/03/2017 3:16 PM Details Outpatient prescription Patient not taking PHYSICAL EXAMINATION: General appearance: NAD Mental status: awake and alert Constitutional: Well groomed Skin: Dry and intact Neuro: Speech fluent IMPRESSION: Narcolepsy with cataplexy Clinical Global Impression of Change ( CGI-C) Compared to the patient's condition at baseline, how much has the patient changed? Much improved PLAN: - Continue taking Vyvanse 70 mg as directed. Continue Xywav 4.5 grams twice per night - Avoid driving when drowsy. 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 - Try to get at least 7-9 hours of sleep in a 24 hour period. Healthy diet and exercise can also promote better sleep. - Follow up in 3 months in the office. Recommend scheduling this appointment now to ensure the besttime for you. Drew Castellanos MD I spent a total of 20 minutes on the date of the service, which included preparing to see the patient, [id number] patient care, completing clinical documentation, performing a medically appropriateexamination, counseling and educating the patient/family/caregiver, ordering medications, tests, or procedures, communicating results to the patient/family/caregiver, and care coordination (not separately reported). Drew Castellanos MD documented in this [facility] Telephone encounter Note * Telephone Encounter - Dwayne BarronAbbie - 12/30/2024 10:12 AM EST Patient called in stating that she would like to speak to Botox Coordinator. Also for Botox, our office billed code [id number] and CPT code 61939 and if its going to be billed underCPT code, this needs a prior auth itself as well. Need to ask for a retro to cover 12/21/2024 bill going forward, since the CPT code was not authorized. Call back #: [phone] Okay to LVM. [facility]02-12[facility] Miscellaneous Notes* Telephone Encounter - Dwayne BarronAbbie - 12/30/2024 10:12 AM EST Patient called in stating that she would like to speak to Botox Coordinator. Also for Botox, our office billed code [id number] and CPT code 13707 and if its going to be billed underCPT code, this needs a prior auth itself as well. Need to ask for a retro to cover 12/21/2024 bill going forward, since the CPT code was not authorized. Call back #: [phone] Okay to LVM. documented in this encounterM[facility]25 History of Present illness Narrative* Francis Garcia MD - 12/26/2024 4:00 PM EST I received consent from the patient to perform the visit as a virtual encounter. Individuals who were included in, or assisted with the encounter were: Pao Garcia MD Location: home This is Ms. Pao Servincasey, a 54 year old female who [facility] for follow up Impression Tingling Burning sensation Seen previously for seems to be resolved at this time. Multiple symptoms in the feet. Does not seemto have numbness on a good day. And indeed, 2023 EMG did not show evidence for a large fiber peripheral neuropathy. History of dry eye, dry mouth noted. History of itching in the hands and feet also noted. Patient is currently on Lyrica 100 mg 3 times daily which helps with the hands and feet. The patient has been on multiple medications in the past including Cymbalta, gabapentin, Savella. Plan -Laboratory studies. CBC with differential, CMP, TSH, B12, SPEP with TOI, A1c, OLEG, anti-LESA - Low threshold for referral to pain management for Qutenza application for peripheral neuropathy Francis Garcia MD Staff, [facility] HPI: This is Ms. Pao Lion, a 54 year old female who presents to the [facility] for follow up Review: Last seen 01/03/2024 This is Ms. Pao Lion, a 53 year old female who presents to the [facility] for follow-up. Seen October 2023 in the setting of left foot drop. Does excellently on exam today. Recent EMG very reassuring. Impression is for resolved left peroneal neuropathy. Plan: - Follow-up in clinic as needed Francis Garcia MD Staff, [facility] >>> EMG 12/30/2023 Extensive electrodiagnostic examination of the left lower extremity and limited examination of the right lower extremity reveals: 1. A common peroneal mononeuropathy, located distal to the nerve branch to the biceps femoris shorthead, and proximal to the deep peroneal branch to the tibialis anterior. This is based on active denervation (fibrillations, positive sharp waves) in the left tibialis anterior, extensor hallucis longus, and extensor digitorum brevis muscles. Normal motor unit morphology and recruitment patterns are noted in the biceps femoris short head, and nerve conduction studies show no abnormal drop across the fibular neck area, no prolongation of latency, and normal conduction velocities. The lesion is axon loss in type, and moderate in degree electrically. The right tibialis anterior was tested for comparison, and d emonstrates normal motor unit morphology, recruitment patterns, and no spontaneous activity noted. 2. There is no EMG evidence of a superimposed lumbosacral motor radiculopathy. 3. There is no EMG evidence of a large fiber, generalized, peripheral neuropathy. 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 No history of cancer or exposure to chemotherapy. No restrictive diet. No history of HIV. No history of significant alcohol intake. No family history of neuropathy that we know of. + history of dry eye. + history of dry mouth. No history of heavy metal exposure that we are aware of. No history of stomach surgery. Doesn't take vitamins Lyrica 100mg TID Help with hands and feet Other meds Cymbalta Gabapentin Savella Past history per chart review includes: (Per my 11/04/2023 note) Past medical history, problem list: Dyslipidemia, hearing difficulty, hyperglycemia, hypothyroidism, migraine, narcolepsy, osteopenia, POTS, sleep apnea, trigeminal neuralgia Intractable migraine, chronic daily headache, medication overuse headache, pain disorder Past surgical history: Back injections, rotator cuff repair, InterStim (sacral nerve stimulator) Family history: Headache (sister) TIA (mother) Social history: Former smoker (remote history) OBJECTIVE: PHYSICAL EXAM: Neurological: Mental Status: Alert. Speech fluent. Cranial Nerves: No hypophonia Sensation: Intact to touch in the distal upper and lower extremities per the patient. Special testing: Phalen: mild tingling, less severe than normal symptoms This note was partially created using voice recognition software and is inherently subject to errors including those of syntax and sound-alike substitutions which may escape proofreading. In such instances, original meaning may be extrapolated by contextual derivation. I spent a total of 25 minutes on the date of the service which included time spent talking to the patient/documenting in the chart, examining the patient via the virtual platform. documented in this encounterMarietta [facility]02-08-2025 NoteHNO ID: [id number] Author: FRANCIS GARCIA MD Service: ? Author Type: Physician Type: Progress Notes Filed: 12/28/2024 14:07 Note Text: I received consent from the patient to perform the visit as a virtual encounter. Individuals who were included in, or assisted with the encounter were: Pao Lion Francis Garcia MD Location: home This is Ms. Pao Lion, a 54 year old female who [facility] for follow up Impression Tingling Burning sensation Seen previously for seems to be resolved at this time. Multiple symptoms in the feet. Does not seem to have numbness on a good day. And indeed, 2023 EMG did not show evidence for a large fiber peripheral neuropathy. History of dry eye, dry mouth noted. History of itching in the hands and feet also noted. Patient is currently on Lyrica 100 mg 3 times daily which helps with the hands and feet. The patient has been on multiple medications in the past including Cymbalta, gabapentin, Savella. Plan -Laboratory studies. CBC with differential, CMP, TSH, B12, SPEP with TOI, A1c, OLEG, anti-LESA - Low threshold for referral to pain management for Qutenza application for peripheral neuropathy Francis Garcia MD Staff, [facility] HPI: This is Ms. Pao Lion, a 54 year old female who [facility] to [facility] for follow up Review: Last seen 01/03/2024 This is Ms. Pao Lion, a 53 year old female who [facility] for follow-up. Seen October 2023 in the setting of left foot drop. Does excellently on exam today. Recent EMG very reassuring. Impression is for resolved left peroneal neuropathy. Plan: - Follow-up in clinic as needed Francis Garcia MD Staff, [facility] >>> EMG 12/30/2023 Extensive electrodiagnostic examination of the left lower extremity and limited examination of the right lower extremity reveals: 1. A common peroneal mononeuropathy, located distal to the nerve branch to the biceps femoris short head, and proximal to the deep peroneal branch to the tibialis anterior. This is based on active denervation (fibrillations, positive sharp waves) in the left tibialis anterior, extensor hallucis longus, and extensor digitorum brevis muscles. Normal motor unit morphology and recruitment patterns are noted in the biceps femoris short head, and nerve conduction studies show no abnormal drop across the fibular neck area, no prolongation of latency, and normal conduction velocities. The lesion is axon loss in type, and moderate in degree electrically. The right tibialis anterior was tested for comparison, and demonstrates normal motor unit morphology, recruitment patterns, and no spontaneous activity noted. 2. There is no EMG evidence of a superimposed lumbosacral motor radiculopathy. 3. There is no EMG evidence of a large fiber, generalized, peripheral neuropathy. 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 No history of cancer or exposure to chemotherapy. No restrictive diet. No history of HIV. No history of significant alcohol intake. No family history of neuropathy that we know of. + history of dry eye. + history of dry mouth. No history of heavy metal exposure that we are aware of. No history of stomach surgery. Doesn't take vitamins Lyrica 100mg TID Help with hands and feet Other meds Cymbalta Gabapentin Savella Past history per chart review includes: (Per my 11/04/2023 note) Past medical history, problem list: Dyslipidemia, hearing difficulty, hyperglycemia, hypothyroidism, migraine, narcolepsy, osteopenia, POTS, sleep apnea, trigeminal neuralgia Intractable migraine, chronic daily headache, medication overuse headache, pain disorder Past surgical history: Back injections, rotator cuff repair, InterStim (sacral nerve stimulator) Family history: Headache (sister) TIA (mother) Social history: Former smoker (remote history) OBJECTIVE: PHYSICAL EXAM: Neurological: Mental Status: Alert. Speech fluent. Cranial Nerves: No hypophonia Sensation: Intact to touch in the distal upper and lower extremities per the patient. Special testing: Phalen: mild tingling, less severe than normal symptoms This note was partially created using voice recognition software and is inherently subject to errors including those of syntax and sound-alike substitutions which may escape proofreading. In such instances, or (more content not included)...[facility]02-07-2025 Telephone encounter Note* Telephone Encounter - Elliot Puga RN - 12/25/2024 9:47 AM EST Pt hasn't read [employer] message regarding appt tomorrow staying virtual Called and spoke to pt She voices understanding and appreciation to clarify appt type Elliot Puga RN BSN [facility] Work Phone: [phone]) 808-446202-07-2025 Miscellaneous Notes* Telephone Encounter - Elliot Puga RN - 12/25/2024 9:47 AM EST Pt hasn't read [employer] message regarding appt tomorrow staying virtual Called and spoke to pt She voices understanding and appreciation to clarify appt type Elliot Puga RN BSN [facility] documented in this encounterMarietta [facility] Clinic02-06-2025 [id number]#Telemedicine visit for mild chest pain and is occurring more frequently. 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 Says she's had a lot of fibromyalgia flare ups lately. Not sure if her COLON is any different than last apt. Says when she stands in the shower her feet and toes get real obvious dark purple . C/o severe itching on her hands and feet. Review of Systems Cardiovascular: Positive for chest pain, dyspnea on exertion and palpitations ( every now and then ). Neurological: Positive for light-headedness ( every now and then ) and numbness. All other systems reviewed and are negative.[facility] 12-24-2024 NoteCardiovascular Medicine [facility] SUBJECTIVE Chief Complaint Patient presents with Palpitations Edema Shortness of Breath Chest Pain POTS Pao Lion is a 54 y.o. female being seen for follow-up. Telehealth visit conducted due to icy weather. HPI PMHx: POTS, SVT, HLD 12/24/2024 Telemedicine visit for mild chest pain and is occurring more frequently. 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 Says she's had a lot of fibromyalgia flare ups lately. Not sure if her COLON is any different than last apt. Says when she stands in the shower her feet and toes get real obvious dark purple . C/o severe itching on her hands and feet. Having issues with diverticulosis currently which seems to be flaring up her fibromyalgia and other issues. She reports numbness/tingling and she reports color changes in her hands and feet when going from hot and cold. She also reports swelling in her hands and feet. Her professor of journalism tested her for neuropathy. She reports intermittent episodes of waking up in the middle of the night with muscle cramping and muscle spasms. This has been going on for some time. She c/o bilateral hand numbness and weakness with raising her hands. Her hands start to feel cold if she raises them for more than a few seconds. She reports hx of thoracic outlet syndrome. She c/o midsternal/left sided chest pain, occurs at rest or with exertion, can last several minutes. Feels like a pinch/squeeze. Resolves on its own. She reports sx's are mild. She has family hx paternal grandparent with an MS 50-60s, father with HF/HLD/a.fib/HTN, uncle with hx of CABG x4. She c/o COLON with minimal exertion. Previous HPI per SAÚL Castorena: Patient here for follow-up regarding her POTS; she had a recent regimen change with her desmopressin and states she has been doing very well with She still has some symptoms of lightheadedness and dizziness with postural changes but states that is improved and with the medication keeps it under control. States that DDAVP seems to wear off before next dose and then she notices more symptoms especially if she is late taking the next dose. Denied syncope or near syncope. HPI: Pao Lion is a 52 y.o. year old with past medical history of Coos's disease who was previously seen by Dr. Huerta as well as Dr. Dotson. She underwent an EP study for what appeared to be tachycardia episode as did not respond to adenosine. She was subsequently seen by Dr. Huerta and by Josi Matta in [place]. She had been placed on beta-blockers but stopped after few months. She was placed on Desmopressin and this has helped her tremendously. Had labs in Jul. Gets occasional dizziness and palpitations. No worse than normal for her. EP study 04/15/2018 Amanda This revealed normal intervals parahisian pacing showing harrison response. Some concern of dual AV node physiology no tachycardia could be induced. Patient Active Problem List Diagnosis Abnormal CT scan, colon Rosemary's disease (CMS/HCC) Adrenal insufficiency (CMS/HCC) Anxiety Cervical spondylosis without myelopathy Cholesteatoma, middle ear, left Chronic daily headache Chronic diarrhea Pain disorder associated with psychological and physical factors Chronic suppurative otitis media of both ears Colitis Conductive hearing loss, bilateral DDD (degenerative disc disease), lumbar Disorder of pituitary gland (CMS/HCC) Dyslipidemia Fracture Generalized abdominal pain Hearing difficulty Hearing impairment Hyperglycemia Hyperlipidemia Trigeminal neuralgia Tinnitus, bilateral Tachycardia Supraventricular tachycardia (CMS/HCC) Sleep apnea Rotator cuff (capsule) sprain POTS (postural orthostatic tachycardia syndrome) Osteopenia Narcolepsy Migraines Medication overuse headache Lumbosacral spondylosis without myelopathy Lumbar radiculopathy Intractable chronic migraine without aura and without status migrainosus Hypothyroidism Iatrogenic thyrotoxicosis Diverticulitis Fibromyalgia History of diverticulitis Migraine without aura and without status migrainosus, not intractable Muscle spasm Right inguinal hernia Past Medical History: Diagnosis Date Coos's disease (CMS/HCC) 02/02/2017 Arrhythmia Dyslipidemia 10/02/2022 Fibromyalgia 10/15/2024 Hypothyroidism 09/28/2014 Last Assessment & Plan: Assessment: on thyroid medications POTS (postural orthostatic tachycardia syndrome) 06/30/2019 Last Assessment & Plan: Assessment: recently diagnosed- follows with Dr. Juan Luis Huerta at [place] [facility]- currently stable Family History Problem Relation Name Age of Onset Stroke Mother Atrial fibrillation Father Hypertension F (more content not included)...[facility] 12-22-2024 Telephone encounter Note* Telephone Encounter - Lesly Gold RN - 12/22/2024 8:43 AM EST -Noted Pt is still scheduled 12/26/[address] Garcia. Closing encounter. [facility]02-04-2025 Miscellaneous Notes* Telephone Encounter - Lesly Gold RN - 12/22/2024 8:43 AM EST -Noted Pt is still scheduled 12/26/[address] Garcia. Closing encounter. * Telephone Encounter - Elliot Puga RN - 12/17/2024 2:18 PM EST Message forwarded to Dr Radha Puga RN BSN [facility] * Telephone Encounter - Lesly Gold RN - 12/17/2024 1:56 PM EST -Pt calling in to office. Pt identified by name and date. -States went to see her [facility] provider (not [facility]) recently and was telling her about the numbness/blanching/discoloration/pain she has been experiencing in her BL feet/toes recently. -States symptoms are chronic, but do seem to be worsening. 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 States the provider recommended she see a NEUR provider who specializes in this. -[facility] made an appt with Dr. Garcia concerning this(12/26/2024/VV), but is wondering if this was already checked in her 01/03/2024 appt with this provider. -Would like Dr. Garcia to weigh in on the appropriateness of this appt. -States would like a call back with any input. States it is okay to leave a detailed VM on her home/mobile phone. documented in this encounterMarietta [facility]02-03-2025 NoteHNO ID: [id number] Author: PALOMO DAVALOS MD Service: ? Author Type: Physician Type: Progress Notes Filed: 12/21/2024 15:11 Note Text: Follow-Up Onabotulinum Toxin A (BotoxTM) for Migraine Indication: Chronic Intractable Migraine Referral Expiration: 12/21/2025 Prior to the initiation of the FIRST treatment with Onabotulinum Toxin A, the patient reported the following average headache frequency over the past 3 MONTHS: Number of moderate-severe migraine days/month: 12 Number of mild migraine days/month: 13 Number of headache free days/month: 5 (120 headache-free hours) After treatment with Onabotulinum Toxin A: Number of moderate-severe migraine days/month: 4 Number of mild migraine days/month: 5 Number of headache free days/month: 21 (504 headache-free hours) Patient reduction in overall migraine days: Yes Patient reduction in moderate-severe migraine days: Yes Patient reduction of headache hours by 100 hours or more: Yes (reduction of 384 hours) Individual has obtained clinical benefit deemed significant by individual or prescriber (Y/N): Yes Patient's quality of life and ability to perform ADLs has improved (Y/N): Yes Wearing off: No The patient has been assessed for disorders which could contribute to breathing or swallowing difficulty, and there is no contraindication with PREEMPT Botox. There is no documented allergic reaction/hypersensitivity to any botulinum toxin and there is no active infection at proposed injection site. HEADACHE SCORES: 02/19/2022 05/28/2022 Headache Questions ER visits since last office visit: 0 0 Hospital stays since last office visit 0 0 Limited ADLs in the last month: 8 Days headache pain free in the last month: 22 Days per month with ALL of the following symptoms - decreased productivity, light sensitivity and nausea: 8 Initial improvement of headache after botox injection at last visit: Very much improved Very much improved PRN medication usage in the last month: 8 Patient impression of improvement since last visit: Very much improved Very much improved 02/19/2022 05/28/2022 HIT-6 HIT-6 64 (Severe impact) Incomplete 02/19/2022 MARIA ESTHER - 2/7 SCORES MARIA ESTHER-2 Score 3 MARIA ESTHER-7 Score 5 04/02/2024 07/08/2024 10/08/2024 PHQ-9 Score 5 5 3 4 BP 129/71 (BP Site: Left Arm, BP Position: Sitting, BP Cuff Size: Regular Adult) Pulse 89 Patient name: Pao Lion : 1970 ALLERGIES Allergen Reactions - Biaxin [Clarithromy* GI Upset - Sutures Rash, Hives, Swelling, Itching Specifically, cat gut sutures - Cymbalta [Duloxetin* Swelling Severe abdominal pain - Demerol [Meperidine* Vomiting - Indomethacin Swelling Had 4+ edema in legs and arms the day after taking a new prescription. - Liquid Bandage (Cya* Rash Dermabond/exofin - Morphine Vomiting - Naproxen GI Upset - Penicillins Rash, Hives Patient can tolerate Augmentin - Vancomycin GI Upset - Versed [Midazolam H* Vomiting - Z Pack [Azithromyci* Rash, GI Upset UNIVERSAL PROTOCOL / SAFETY CHECKLIST Procedure: Onabotulinum toxin A for migraine Informed Consent Consent Obtained: Written [place] Protocol A moment to CARE was completed SIGN IN Personnel directly involved with the procedure wore the appropriate PPE Special Equipment: N/A Patient/Surrogate Stated/Verified: Patient name, Date of , Relevant allergies and Intended procedure TIME OUT Intended patient and procedure match the source document(s) Consent documented and matches the intended procedure No relevant labs, photos, and/or imaging studies were applicable for review. No correct side/site applicable for marking and visibility. No medications required for procedure. No fire risk assessment and interventions applicable. No implant(s) inserted. SIGN OUT No specimen collected. No instruments, equipment or retained foreign bodies applicable. Post-procedure follow-up management communicated and Plan of Care Visit completed when applicable Written Consent Obtained: Written Injection Sites Left (Units) Left (Sites) Right (Units) Right (Sites) TOTAL (Units) Used Car Make Ready Worker 5 1 5 1 10 Procerus Units: 5 Sites: 1 5 Frontalis 10 2 10 2 20 Temporalis 45 9 40 8 85 Occipitalis 15 3 15 3 30 Cervical PSP 10 2 10 2 20 Trapezius 15 3 15 3 30 Total Units used: 200 Total Units wasted: 0 Prior Therapies Duration of Use Dose Side effect [facility] History of Present illness Narrative* Palomo Davalos MD - 12/21/2024 3:09 PM EST Images from the original note were not included. Follow-Up Onabotulinum Toxin A (BotoxTM) for Migraine Indication: Chronic Intractable Migraine Referral Expiration: 12/21/2025 Prior to the initiation of the FIRST treatment with Onabotulinum Toxin A, the patient reported the following average headache frequency over the past 3 MONTHS: Number of moderate-severe migraine days/month: 12 Number of mild migraine days/month: 13 Number of headache free days/month: 5 (120 headache-free hours) After treatment with Onabotulinum Toxin A: Number of moderate-severe migraine days/month: 4 Number of mild migraine days/month: 5 Number of headache free days/month: 21 (504 headache-free hours) Patient reduction in overall migraine days: Yes Patient reduction in moderate-severe migraine days: Yes Patient reduction of headache hours by 100 hours or more: Yes (reduction of 384 hours) Individual has obtained clinical benefit deemed significant by individual or prescriber (Y/N): Yes Patient's quality of life and ability to perform ADLs has improved (Y/N): Yes Wearing off: No The patient has been assessed for disorders which could contribute to breathing or swallowing difficulty, and there is no contraindication with PREEMPT Botox. There is no documented allergic reaction/hypersensitivity to any botulinum toxin and there is no active infection at proposed injection site. HEADACHE SCORES: 02/19/2022 05/28/2022 Headache Questions ER visits since last office visit: 0 0 Hospital stays since last office visit 0 0 Limited ADLs in the last month: 8 Days headache pain free in the last month: 22 Days per month with ALL of the following symptoms - decreased productivity, light sensitivity and nausea: 8 Initial improvement of headache after botox injection at last visit: Very much improved Very much improved PRN medication usage in the last month: 8 Patient impression of improvement since last visit: Very much improved Very much improved 02/19/2022 05/28/2022 HIT-6 HIT-6 64 (Severe impact) Incomplete 02/19/2022 MARIA ESTHER - 2/7 SCORES MARIA ESTHER-2 Score 3 MARIA ESTHER-7 Score 5 04/02/2024 07/08/2024 10/08/2024 PHQ-9 Score 5 5 3 4 BP 129/71 (BP Site: Left Arm, BP Position: Sitting, BP Cuff Size: Regular Adult) Pulse 89 Patient name: Pao Lion : 1970 ALLERGIES Allergen Reactions Biaxin [Clarithromy* GI Upset Sutures Rash, Hives, Swelling, Itching Specifically, cat gut sutures Cymbalta [Duloxetin* Swelling Severe abdominal pain Demerol [Meperidine* Vomiting Indomethacin Swelling Had 4+ edema in legs and arms the day after taking a new prescription. Liquid Bandage (Cya* Rash Dermabond/exofin Morphine Vomiting Naproxen GI Upset Penicillins Rash, Hives Patient can tolerate Augmentin Vancomycin GI Upset Versed [Midazolam H* Vomiting Z Pack [Azithromyci* Rash, GI Upset UNIVERSAL PROTOCOL / SAFETY CHECKLIST Procedure: Onabotulinum toxin A for migraine Informed Consent Consent Obtained: Written [place] Protocol A moment to CARE was completed SIGN IN Personnel directly involved with the procedure wore the appropriate PPE Special Equipment: N/A Patient/Surrogate Stated/Verified: Patient name, Date of , Relevant allergies and Intended procedure TIME OUT Intended patient and procedure match the source document(s) Consent documented and matches the intended procedure No relevant labs, photos, and/or imaging studies were applicable for review. No correct side/site applicable for marking and visibility. No medications required for procedure. No fire risk assessment and interventions applicable. No implant(s) inserted. SIGN OUT No specimen collected. No instruments, equipment or retained foreign bodies applicable. Post-procedure follow-up management communicated and Plan of Care Visit completed when applicable Written Consent Obtained: Written Injection Sites Left (Units) Left (Sites) Right (Units) Right (Sites) TOTAL (Units) Used Car Make Ready Worker 5 1 5 1 10 Procerus Units: 5 Sites: 1 5 Frontalis 10 2 10 2 20 Temporalis 45 9 40 8 85 Occipitalis 15 3 15 3 30 Cervical PSP 10 2 10 2 20 Trapezius 15 3 15 3 30 Total Units used: 200 Total Units wasted: 0 Prior Therapies Duration of Use Dose Side effect Palomo Davlaos MD documented [facility] Telephone encounter Note * Telephone Encounter - Elliot Puga RN - 12/17/2024 2:18 PM EST Message forwarded to Dr Radha Puga RN BSN [facility] Work Phone: [phone] Telephone encounter Note* Telephone Encounter - Lesly Gold RN - 12/17/2024 1:56 PM EST -Pt calling in to office. Pt identified by name and date. -States went to see her [facility] provider (not [facility]) recently and was telling her about the numbness/blanching/discoloration/pain she has been experiencing in her BL feet/toes recently. -States symptoms are chronic, but do seem to be worsening. 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 States the provider recommended she see a NEUR provider who specializes in this. -[facility] made an appt with Dr. Garcia concerning this(12/26/2024/VV), but is wondering if this was already checked in her 01/03/2024 appt with this provider. -Would like Dr. Garcia to weigh in on the appropriateness of this appt. -States would like a call back with any input. States it is okay to leave a detailed VM on her home/mobile phone. [facility]01-28-[facility]25 Miscellaneous Notes* Telephone Encounter - Jenn Hernandez CMA - 12/15/2024 8:22 AM EST Patient called stating she is having a little flair up of her Diverticulitis and she would like a antibiotic sent in. She said she usually uses Augmenting due to others not working. Please advise? * Telephone Encounter - LACY Nichols - 12/15/2024 8:22 AM EST I sent in augmentin, but it says she has allergy to PCN, so if that is true, she should not take this medication. Let me know so I can either change the allergy in the chart or send in alternative medication. Also, if symptoms persist, please schedule appointment. * Telephone Encounter - Jenn Hernandez CMA - 12/15/2024 8:22 AM EST Called patient and she stated she is not allergic so telegraphic typewriter operator will remove. Informed her medication was sent she stated understanding. [facility] Tele[facility] encounter Note* Telephone Encounter - Jenn Hernandez CMA - 12/15/2024 8:22 AM EST Patient called stating she is having a little flair up of her Diverticulitis and she would like a antibiotic sent in. She said she usually uses Augmenting due to others not working. Please advise? [facility] Telephone encounter Note* Telephone Encounter - LACY Nichols - 12/15/2024 8:22 AM EST I sent in augmentin, but it says she has allergy to PCN, so if that is true, she should not take this medication. Let me know so I can either change the allergy in the chart or send in alternative medication. Also, if symptoms persist, please schedule appointment. [facility]01-28-[facility] Telephone encounter Note* Telephone Encounter - Jenn Hernandez CMA - 12/15/2024 8:22 AM EST Called patient and she stated she is not allergic so telegraphic typewriter operator will remove. Informed her medication was sent she stated understanding. [facility]01-02[facility] Miscellaneous Notes* Telephone Encounter - Joan Bellamy CMA - 11/19/2024 11:33 AM EST Patient called stating that she has been sick for about 3 weeks and is wondering if PCP could placean order for a sputum culture since she is still coughing up a lot. If so this order would need faxed to [facility]: [phone] Please advise? * Telephone Encounter - LACY Nichols - 11/19/2024 11:33 AM EST Order placed. Can we fax it over please. * Telephone Encounter - Nolvia Butler CNA - 11/19/2024 11:33 AM EST Patient Notified [facility] Telephone encounter Note* Telephone Encounter - Joan Bellamy CMA - 11/19/2024 11:33 AM EST Patient called stating that she has been sick for about 3 weeks and is wondering if PCP could placean order for a sputum culture since she is still coughing up a lot. If so this order would need faxed to [facility]: [phone] Please advise? [facility] Telephone encounter Note* Telephone Encounter - LACY Nichols - 11/19/2024 11:33 AM EST Order placed. Can we fax it over please. [facility]01-02-[facility] Telephone encounter Note* Telephone Encounter - Nolvia Butler CNA - 11/19/2024 11:33 AM EST Patient Notified [facility]12-12[facility] Telephone encounter Note* Telephone Encounter - Frannie Lopez RN - 10/29/2024 8:10 AM EST Spoke to Harry at [facility] and gave okay to ship. [facility]12-12-[facility]24 Miscellaneous Notes* Telephone Encounter - Frannie Lopez RN - 10/29/2024 8:10 AM EST Spoke to Harry at [facility] and gave okay to ship. * Telephone Encounter - Nnamdi Bolivar - 10/28/2024 1:06 PM EST ESSDS called regarding this matter. Requested a call back. * Telephone Encounter - Nnamdi Bolivar - 10/23/2024 8:38 AM EST SLEEP PHONE Name of caller: ESSDS Relationship to patient : Caregiver In-state or [id number] patient: In-State Was permission obtained from patient? Yes Patient identified by Name and Date of . ( Pao Lion, 1970). Yes Reason for Call : ESSDS called in regard to medication interaction for the patient. Requested a call back. Number to return call [phone] Okay to leave a message ? Yes documented in this encounterM[facility]12-11-2024 Telephone encounter Note * Telephone Encounter - Nnamdi Bolivar - 10/28/2024 1:06 PM EST ESSDS called regarding this matter. Requested a call back. [facility]12-06-[facility]24 Telephone encounter Note* Telephone Encounter - Nnamdi Bolivar - 10/23/2024 8:38 AM EST SLEEP PHONE Name of caller: ESSDS Relationship to patient : Caregiver In-state or [id number] patient: In-State Was permission obtained from patient? Yes Patient identified by Name and Date of . ( Pao Lion, 1970). Yes Reason for Call : ESSDS called in regard to medication interaction for the patient. Requested a call back. Number to return call [phone] Okay to leave a message ? Yes [facility]11-25-2024 NoteHNO ID: [id number] Author: DREW CASTELLANOS MD Service: ? Author Type: Physician Type: Progress Notes Filed: 10/12/2024 16:38 Note Text: [facility] Follow up/ Established patient visit I'm Dr. Drew Castellanos, I'm a licensed Sleep Medicine specialist. I want to confirm your location is in [place]: YES Virtual visits are a convenient way for us to meet for the first time, but there are some situations in which an in-person evaluation may be required at a later time. I want to check in to confirm your consent to be seen virtually today: YES I have communicated my name and active licensure. The patient's identity and physical location were verified at the time of this visit. Either the patient or their legal retail wireless sales representative has been informed of the risks and benefits of -- and alternatives to -- treatment through a remote evaluation and consents to proceed with the evaluation remotely. Date of last visit : 01/06/2024 I have communicated my name and active licensure. The patient's identity and physical location were verified at the time of this visit. Either the patient or their legal retail wireless sales representative has been informed of the risks and benefits of -- and alternatives to -- treatment through a remote evaluation and consents to proceed with the evaluation remotely. 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 She has become more tired over the past 3 months. She has no depression; she had one episode of muscle weakness in her upper arms when she was embarrassed. She had another episode of neck weakness (head drop) when she was laughing. No driving driving. She denies chest pain, pressure, palpitations, change in blood pressure, new headaches, weight loss, and insomnia. Vyvanse 50 mg upon awakening - (She has tried Wakix - jaw clenching; Adderall - jittery) SLEEP HYGIENE QUESTIONS: Bedtime : MN Wake up Time : 7-9 am Time it takes to fall sleep : < 15 minutes Activities in bed before falling asleep : None Number of times patient wakes up per night : 1 Reason (s) why patient wakes up during the night : medication Estimated total sleep time ( in a 24 hour period of time) : 7 Naps : Yes PATIENT-ENTERED QUESTIONNAIRE SLEEP SCORES 10/12/2024 Sleep Questions Reason for visit: Difficulty falling or staying asleep or poor sleep quality Excessive daytime sleepiness Narcolepsy Abnormal sleep/wake timing Multiple values from one day are sorted in reverse-chronological order 04/02/2024 07/08/2024 10/08/2024 [place] Sleepiness Scale Score 13 (Excessive daytime sleepiness present) 15 (Excessive daytime sleepiness present) 14 (Excessive daytime sleepiness present) 04/02/2024 07/08/2024 10/08/2024 PROMIS CAT Sleep Disturbance PROMIS Sleep Disturbance T-Score 44 (within normal limits) 45 (within normal limits) 49 (within normal limits) PROMIS Sleep Disturbance Percentile 73 69 54 06/27/2020 Insomnia Severity Index Score 28 06/27/2020 07/13/2022 Restless Leg Syndrome Score 16 (Moderate symptoms) 16 (Moderate symptoms) 04/02/2024 07/08/2024 10/08/2024 PHQ-9 Score 5 5 3 4 04/02/2024 07/08/2024 10/08/2024 PROMIS Global Health - (T-Scores - the mean of general population = 50. Five points is a clinically meaningful difference.) Physical T-Score 39.8 39.8 37.4 39.8 Mental T-Score 45.8 45.8 41.1 45.8 PMH, PSH, SH: Right inguinal hernia; diverticulitis SLEEP RELATED ROS Review of Systems ALLERGIES Allergen Reactions Biaxin [Clarithromy* GI Upset Sutures Rash, Hives, Swelling, Itching Specifically, cat gut sutures Cymbalta [Duloxetin* Swelling Severe abdominal pain Demerol [Meperidine* Vomiting Indomethacin Swelling Had 4+ edema in legs and arms the day after taking a new prescription. Liquid Bandage (Cya* Rash Dermabond/exofin Morphine Vomiting Naproxen GI Upset Penicillins Rash, Hives Patient can tolerate Augmentin Vancomycin GI Upset Versed [Midazolam H* Vomiting Z Pack [Azithromyci* Rash, GI Upset CURRENT MEDICATIONS: XYWAV 0.5 gram/mL soln oral liquid Take 9 mL by mouth at bedtime and 4 hours after. carBAMazepine (TEGRETOL) 200 mg tablet Take 2 tablets by mouth three times a day. polyethylene glycol 3350 (MIRALAX) 17 gram/dose powder Take 17 g by mouth once daily. Dissolve dose in 4 - 8 ounces of liquid and take as directed. (Patient not taking: Reported on 08/20/2024) lisdexamfetamine (VYVANSE) 50 mg capsule Take 1 capsule by mouth once daily for 30 days. lisdexamfetamine (VYVANSE) 50 mg capsule Take 1 capsule by mouth once daily for 30 days. Patient should start on August 08, 2024. lisdexamfetamine (VYVANSE) 50 mg capsule Take 1 capsule by mouth once daily for 30 days. Patient should start on September 07, 2024. Milnacipran (SAVELLA) 12.5 mg tab Take 12.5 mg by mouth once daily. (more content not included)...[facility]11-25-2024 History of Present illness Narrative* Drew Castellanos MD - 10/12/2024 4:16 PM EST Images from the original note were not included. [facility] Follow up/ Established patient visit I'm Dr. Drew Castellanos, I'm a licensed Sleep Medicine specialist. I want to confirm your location [facility]: YES Virtual visits are a convenient way for us to meet for the first time, but there are some situations in which an in-person evaluation may be required at a later time. I want to check in to confirm your consent to be seen virtually today: YES I have communicated my name and active licensure. The patient's identity and physical location wereverified at the time of this visit. 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 Date of last visit : 01/06/2024 I have communicated my name and active licensure. The patient's identity and physical location wereverified at the time of this visit. 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 She has become more tired over the past 3 months. She has no depression; she had one episode of muscle weakness in her upper arms when she was embarrassed. She had another episode of neck weakness (head drop) when she was laughing. No driving driving. She denies chest pain, pressure, palpitations, change in blood pressure, new headaches, weight loss, and insomnia. Vyvanse 50 mg upon awakening - (She has tried Wakix - jaw clenching; Adderall - jittery) SLEEP HYGIENE QUESTIONS: Bedtime : MN Wake up Time : 7-9 am Time it takes to fall sleep : < 15 minutes Activities in bed before falling asleep : None Number of times patient wakes up per night : 1 Reason (s) why patient wakes up during the night : medication Estimated total sleep time ( in a 24 hour period of time) : 7 Naps : Yes PATIENT-ENTERED QUESTIONNAIRE SLEEP SCORES 10/12/2024 Sleep Questions Reason for visit: Difficulty falling or staying asleep or poor sleep quality Excessive daytime sleepiness Narcolepsy Abnormal sleep/wake timing Multiple values from one day are sorted in reverse-chronological order 04/02/2024 07/08/2024 10/08/2024 [place] Sleepiness Scale Score 13 (Excessive daytime sleepiness present) 15 (Excessive daytime sleepiness present) 14 (Excessive daytime sleepiness present) 04/02/2024 07/08/2024 10/08/2024 PROMIS CAT Sleep Disturbance PROMIS Sleep Disturbance T-Score 44 (within normal limits) 45 (within normal limits) 49 (within normal limits) PROMIS Sleep Disturbance Percentile 73 69 54 06/27/2020 Insomnia Severity Index Score 28 06/27/2020 07/13/2022 Restless Leg Syndrome Score 16 (Moderate symptoms) 16 (Moderate symptoms) 04/02/2024 07/08/2024 10/08/2024 PHQ-9 Score 5 5 3 4 04/02/2024 07/08/2024 10/08/2024 PROMIS Global Health - (T-Scores - the mean of general population = 50. Five points is a clinicallymeaningful difference.) Physical T-Score 39.8 39.8 37.4 39.8 Mental T-Score 45.8 45.8 41.1 45.8 PMH, PSH, SH: Right inguinal hernia; diverticulitis SLEEP RELATED ROS Review of Systems ALLERGIES Allergen Reactions Biaxin [Clarithromy* GI Upset Sutures Rash, Hives, Swelling, Itching Specifically, cat gut sutures Cymbalta [Duloxetin* Swelling Severe abdominal pain Demerol [Meperidine* Vomiting Indomethacin Swelling Had 4+ edema in legs and arms the day after taking a new prescription. Liquid Bandage (Cya* Rash Dermabond/exofin Morphine Vomiting Naproxen GI Upset Penicillins Rash, Hives Patient can tolerate Augmentin Vancomycin GI Upset Versed [Midazolam H* Vomiting Z Pack [Azithromyci* Rash, GI Upset CURRENT MEDICATIONS: XYWAV 0.5 gram/mL soln oral liquid Take 9 mL by mouth at bedtime and 4 hours after. carBAMazepine (TEGRETOL) 200 mg tablet Take 2 tablets by mouth three times a day. polyethylene glycol 3350 (MIRALAX) 17 gram/dose powder Take 17 g by mouth once daily. Dissolve dosein 4 - 8 ounces of liquid and take as directed. (Patient not taking: Reported on 08/20/2024) lisdexamfetamine (VYVANSE) 50 mg capsule Take 1 capsule by mouth once daily for 30 days. lisdexamfetamine (VYVANSE) 50 mg capsule Take 1 capsule by mouth once daily for 30 days. Patient should start on August 08, 2024. lisdexamfetamine (VYVANSE) 50 mg capsule Take 1 capsule by mouth once daily for 30 days. Patient should start on September 07, 2024. Milnacipran (SAVELLA) 12.5 mg tab Take 12.5 mg by mouth once daily. keTORolac (TORADOL) 60 mg/2 mL soln INJECT 2ML INTRAMUSCULARLY ONE TIME ONLY FOR 1 DOSE ondansetron (ZOFRAN) 8 mg tablet Take by mouth three times a day as needed. levothyroxine (SYNTHROID) 50 mcg tablet TAKE 1 TABLET BY MOUTH SATURDAY THROUGH SATURDAY. SKIP SATURDAY. dexAMETHasone sodium phosphate (DECADRON) 4 mg/mL injection INJECT 1ML (4MG) INTRAMUSCULARLY EVERY 6 HOURS NEEDED FOR ADRENAL STRESS, USE WHEN VOMITING OR DIARRHEA PREVENTS USE OF THE ORAL DOSE. desmopressin acetate (DDAVP) 0.1 mg tablet Take 0.1 mg by mouth three times daily. liothyronine (CYTOMEL) 5 mcg tablet Take 5 mcg by mouth twice daily. ezetimibe (ZETIA) 10 mg tablet Take 10 mg by mouth every morning. REPATHA SURECLICK 140 mg/mL pen injector INJECT 140 MG UNDER THE SKIN EVERY 2 WEEKS hydrOXYzine HCl (ATARAX) 25 mg tablet Take 25 mg by mouth as needed. omeprazole (PRILOSEC) 40 mg capsule Take 40 mg by mouth as needed. SUMAtriptan (IMITREX) 100 mg tablet Take 100 mg by mouth. esterified estrogens-methylTESTOSTERone (ESTRATEST) 1.25-2.5 mg per tablet Take 1 tablet by mouth once daily. tiZANidine (ZANAFLEX) 4 mg tablet Take 4 mg by mouth as needed. Prior Hypersomnia/Narcolepsy Medications (20 years) 10/07/2024 23:59 Hypersomnia/Narcolepsy Medications lisdexamfetamine dimesylate -Rx End sodium,calcium,mag,pot oxybate 4.5 g BEDTIME AND 4 HOURS AFTER ORAL Details Outpatient prescription PHYSICAL EXAMINATION: General appearance: NAD Mental status: awake and alert Constitutional: Well groomed Neuro: Speech fluent IMPRESSION: Narcolepsy with Cataplexy Clinical Global Impression of Change ( CGI-C) Compared to the patient's condition at baseline, how much has the patient changed? Much improved PLAN: - Increase Vyvanse to 60 mg as directed. - Continue taking Xywav 4.5 grams twice per night as directed. - Avoid driving when drowsy. 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 - Try to get at least 7-9 hours of sleep in a 24 hour period. Healthy diet and exercise can also promote better sleep. - Follow up in 3 months in the office. Recommend scheduling this appointment now to ensure the besttime for you. Drew Castellanos MD I spent a total of 25 minutes on the date of the service, which included preparing to see the patient, [id number] patient care, completing clinical documentation, performing a medically appropriateexamination, counseling and educating the patient/family/caregiver, ordering medications, tests, or procedures, communicating results to the patient/family/caregiver, and care coordination (not separately reported). Drew Castellanos MD documented in this [facility]11-22-[facility] History of Present illness Narrative* Jeff Patel, SAP PAYROLL CONSULTANT-LEAD FABRICATOR - 10/09/2024 10:00 AM EST Subjective Patient ID: Pao Lion is a 54 y.o. female. HPI Pao presents to the office to establish care. Previous PCP has moved. Issues with cataracts, causing visual disturbance. Hx: [facility]- chronic ear infections, ear pains, multiple ear infections. Implants- middle ear bones. Chronic hearing loss since childhood. Colitis, diverticulitis- no longer following with GI as they [place]. She gets flare upsevery few months. She typically tries to manage at home, but she will let me know if symptoms are worsening for treatment. Last time she was treated was June. Augmentin seemed to work well in the past. Adrenal insuffiencey, thyroid, elevated cholesterol- following with endocrinology, Dr. Eugene. Jeantiarosie mars. Taking daily steroids. POTS, SVT- cardiology, [facility]. Desmopressin Fibromyalgia- she follows with rheumatology- marcela Thorpe. Trigeminal neuralgia and migraines, following with Neurology at [facility], Dr. Flanagan, this also helps TMJ symptoms. Toradol injections PRN for severe migraines. Tegretol. Gets very nauseous and vomits with bad migraines, takes zofran and phenergan PRN. Narcolepsy with cataplexy, chronic fatigue and solmence- Dr. Castellanos, [facility]- Xywav. Sanchez as well. She has itching- ila helps it, previously on hydroxyzine. ERD- prilosec PRN Generalized body spasms, chronic back and neck pain from injury, thoraic outlet syndrom- she takes tizanidine PRN. Has not needed this in a while. Shoulder pain, chronic bilateral from injuries and surgeries. Chronic foot pain bilaterally- d/t chronic wear and tear on the body from hard work over the years. Hx of skin cancer- following with dermatology- protopic topical Hysterecomy- on estrogen, currency machine operator will also prescribe for her. 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) Hypothyroidism Generalized abdominal pain Chronic diarrhea Abnormal CT scan, colon Current Outpatient Medications on File Prior to Visit Medication Sig Dispense Refill diazePAM (VALIUM) 10 mg tablet Take 10 mg by mouth 2 (two) times a day Indications: Muscle Spasm. eletriptan (RELPAX) 40 mg tablet Take 40 mg by mouth once as needed for migraine. May repeat in 2 hours if unresolved. Do not exceed 80 mg in 24 hours. estrogens-methylTESTOSTERone (EEMT,COVARYX) 1.25-2.5 mg per tablet Take 1 tablet by mouth daily Indications: Vasomotor Symptoms associated with Menopause. hydrocortisone (CORTEF) 20 mg tablet Take 20 mg by mouth 2 (two) times a day Indications: rosemary's. levothyroxine (SYNTHROID) 88 MCG tablet Take 88 mcg by mouth daily Indications: HYPOTHYROIDISM. ondansetron (ZOFRAN) 8 mg tablet Take 4-8 mg by mouth every 8 (eight) hours as needed for nausea orvomiting. pantoprazole (PROTONIX) 40 mg EC tablet Take 40 mg by mouth 2 (two) times a day Indications: Gastroesophageal Reflux. pravastatin (PRAVACHOL) 20 mg tablet Take 20 mg by mouth daily Indications: HYPERLIPIDEMIA. promethazine (PHENERGAN) 25 mg tablet Take 25 mg by mouth every 6 (six) hours as needed for nausea or vomiting. SUMAtriptan (IMITREX) 100 mg tablet Take 100 mg by mouth as needed for migraine (may repeat x1 as one hr). May repeat in 2 hours if unresolved. Do not exceed 200 mg in 24 hours. tiZANidine (ZANAFLEX) 4 mg tablet Take 4 mg by mouth 2 (two) times a day as needed for muscle spasms Indications: Muscle Spasm. TRAMADOL HCL (TRAMADOL ORAL) Take 50-100 mg by mouth every 4 (four) hours as needed Indications: chronic shoulder and back paiin. zolpidem (AMBIEN) 10 mg tablet Take 10-15 mg by mouth nightly as needed for sleep. No current facility-administered medications on file prior to visit. Past Surgical History: Procedure Laterality Date ADENOIDECTOMY FLEXIBLE SIGMOIDOSCOPY with biopsies Left Lateral 02/04/2017 Performed by Facundo Soto MD at [facility] ENDOSCOPY NASAL SEPTUM SURGERY OTHER SURGICAL HISTORY 2006 migraine surgery SHOULDER ARTHROSCOPY Bilateral TONSILLECTOMY TOTAL ABDOMINAL HYSTERECTOMY W/ BILATERAL SALPINGOOPHORECTOMY TYMPANOPLASTY rebuilt TYMPANOSTOMY TUBE PLACEMENT Family History Problem Relation Age of Onset Depression Mother Diabetes Mother Hyperlipidemia Mother Stroke Mother Alcohol abuse Father Arthritis Father Cancer Father COPD Father Hearing loss Father Heart disease Father Hypertension Father Anesthesia problems Sister Hearing loss Sister Hyperlipidemia Sister Asthma Brother Depression Brother Drug abuse Brother Early Brother Mental illness Brother Asthma Daughter Asthma Son Cancer Son Stroke Maternal Aunt Stroke Maternal Uncle Heart disease Maternal Uncle Diabetes Maternal Uncle Mental illness Maternal Grandmother Stroke Maternal Grandmother Arthritis Maternal Grandfather Arthritis Paternal Grandmother Vision loss Paternal Grandmother Arthritis Paternal Grandfather The following portions of the patient's history were reviewed and updated as appropriate: allergies, current medications, past family history, past medical history, past social history, past surgicalhistory, problem list, and medication reconciliation was completed including current medication andpost discharge medication. Review of Systems Constitutional: Negative for chills, diaphoresis, fatigue, fever and unexpected weight change. HENT: Negative. Eyes: Negative. Respiratory: Negative for cough, chest tightness, shortness of breath and wheezing. Cardiovascular: Positive for palpitations (controlled with medications). Negative for chest pain and leg swelling. Gastrointestinal: Positive for constipation and diarrhea. Negative for abdominal pain, blood in stool, nausea and vomiting. Abdominal cramps. Endocrine: Negative for polydipsia, polyphagia and polyuria. Genitourinary: Negative for difficulty urinating, frequency, hematuria and urgency. Musculoskeletal: Positive for arthralgias (chronic), back pain and neck pain. Negative for gait problem and joint swelling. Baseline Skin: Negative. Neurological: Positive for dizziness, numbness (hands and feet. baseline) and headaches. Negative for syncope, weakness and light-headedness. Psychiatric/Behavioral: Negative for self-injury, sleep disturbance (controlled with medication) and suicidal ideas. Objective Physical Exam Vitals and nursing note reviewed. Constitutional: General: She is not in acute distress. Appearance: Normal appearance. She is well-developed. She is not ill-appearing. HENT: Head: Normocephalic and atraumatic. Right Ear: External ear normal. Left Ear: External ear normal. Nose: Nose normal. Mouth/Throat: Mouth: Mucous membranes are moist. Pharynx: Oropharynx is clear. Eyes: Extraocular Movements: Extraocular movements intact. Pupils: Pupils are equal, round, and reactive to light. Neck: Vascular: No carotid bruit. Cardiovascular: Rate and Rhythm: Normal rate and regular rhythm. Pulses: Normal pulses. Heart sounds: Normal heart sounds. No murmur heard. Pulmonary: Effort: Pulmonary effort is normal. No respiratory distress. Breath sounds: Normal breath sounds. No stridor. No wheezing, rhonchi or rales. Abdominal: General: Bowel sounds are normal. Palpations: Abdomen is soft. Tenderness: There is no abdominal tenderness. Musculoskeletal: General: Normal range of motion. Cervical back: Normal range of motion and neck supple. No rigidity or tenderness. Right lower leg: No edema. Left lower leg: No edema. Lymphadenopathy: Cervical: No cervical adenopathy. Skin: General: Skin is warm and dry. Capillary Refill: Capillary refill takes less than 2 seconds. Findings: No rash. Neurological: General: No focal deficit present. Mental Status: She is alert and oriented to person, place, and time. Motor: No weakness. Psychiatric: Mood and Affect: Mood normal. Behavior: Behavior normal. Assessment/Plan Sign release of records from previous physician. I can refill Lyrica for fibromyalgia. I will send relpex for migraine prevention. I will send in zofran and phenergan. FU 3 months for chronic pain. Pao was seen today for establish care. Diagnoses and all orders for this visit: Supraventricular tachycardia (CMS-HCC) Primary adrenocortical insufficiency (CMS-HCC) Fibromyalgia - pregabalin (LYRICA) 50 mg capsule; Take 2 capsules (100 mg total) by mouth 3 (three) times a day for 30 days. Migraine with aura and without status migrainosus, not intractable - ondansetron (ZOFRAN) 8 mg tablet; Take 1 tablet (8 mg total) by mouth every 8 (eight) hours as needed for nausea or vomiting. - promethazine (PHENERGAN) 25 mg tablet; Take 0.5 tablets (12.5 mg total) by mouth every 8 (eight) hours as needed for nausea or vomiting. Oral or injectable - eletriptan (RELPAX) 40 mg tablet; Take 1 tablet (40 mg total) by mouth once as needed for migraine. May repeat in 2 hours if unresolved. Do not exceed 80 mg in 24 hours. Encounter to establish care Diverticulitis Trigeminal neuralgia Primary narcolepsy with cataplexy Muscle spasm LACY Nichols 10/15/24 1614 documented in this encounterGr[facility] HospitalBlast[facility]s11-18-[facility]24 Telephone encounter Note* Telephone Encounter - Dariana Stockton APRN.CNP - 10/05/2024 2:15 PM ESTSummary: xywav refilled. The following approved medication requests have been transmitted electronically. Requested Prescriptions Signed Prescriptions Disp Refills XYWAV 0.5 gram/mL soln oral liquid 540 mL 5 Sig: Take 9 mL by mouth at bedtime and 4 hours after. Authorizing Provider: DARIANA STOCKTON APRN.CNP PDMP website checked and validated. All prescriptions have been APPROPRIATELY filled. No suspiciousactivity was identified. 10/05/2024 by Dariana Stockton APRN.CNP [facility]11-18-2024 Miscellaneous Notes* Telephone Encounter - Dariana Stockton APRN.CNP - 10/05/2024 2:15 PM ESTSummary: xywav refilled. The following approved medication requests have been transmitted electronically. Requested Prescriptions Signed Prescriptions Disp Refills XYWAV 0.5 gram/mL soln oral liquid 540 mL 5 Sig: Take 9 mL by mouth at bedtime and 4 hours after. Authorizing Provider: DARIANA STOCKTON APRN.CNP PDMP website checked and validated. All prescriptions have been APPROPRIATELY filled. No suspiciousactivity was identified. 10/05/2024 by Dariana Stockton APRN.CNP documented in this encounterMari[facility]11-06-2024 History of Present illness Narrative* Tu Flores MD - 09/23/2024 12:30 PM EST Images from the original note were not included. Tu Flores MD Obstetrics and Gynecology Patient: Pao Lion : 1970 (54 y.o.) Yearly Wellness Exam Date: 09/23/2024 Reason for Visit - Chief Complaint Patient presents with Gynecologic Exam LMP: HYST Last Mammogram: 09/13/24 Last Pap: 09/19/22- neg Cologuard: 12/18/22- neg Complaints: The patient, Pao, reports feeling emotionally distressed, describing herself as blue .Pao states that she gets mammograms regularly, every year. She denies any family history of breast cancer but mentions a history of Alzheimer's disease in her family. The patient is currently on hormone replacement therapy, taking the generic version of Estratest DS(EEMT) at a dosage of 1.25/2.5, managed by her currency machine operator. She confirms that she is still getting mammograms and takes the medication in tablet form. She also asks about HRT options with the least side effects and the difference between daily hormone pills and those with a week off. Visit Vitals BP 110/70 Wt 133 lb BMI 24.33 kg/m OB Status Hysterectomy Smoking Status Never BSA 1.62 m History of Present Illness, Associated Treatments and Results - OB History Para Term AB Living 3 3 0 0 0 0 SAB IAB Ectopic Multiple Live Births 0 0 0 0 0 # Outcome Date GA Lbr Gael/2nd Weight Sex Type Anes PTL Lv 3 Para 2 Para 1 Para Review of Systems - Constitutional: Negative. HENT: Negative. Eyes: Negative. Respiratory: Negative. Cardiovascular: Negative. Gastrointestinal: Negative. Endocrine: Negative. Genitourinary: Negative. Musculoskeletal: Negative. Skin: Negative. Allergic/Immunologic: Negative. Neurological: Negative. Hematological: Negative. Psychiatric/Behavioral: Negative. Allergies Allergen Reactions Other Other, Itching and Rash Specifically, cat gut sutures Received name: Sutures Duloxetine Hcl Other Indomethacin Other and Swelling Had 4+ edema in legs and arms the day after taking a new prescription. Had 4+ edema in legs and arms the day after taking a new prescription. Had 4+ edema in legs and arms the day after taking a new prescription. Had 4+ edema in legs and arms the day after taking a new prescription. Levofloxacin Other Meperidine Nausea And Vomiting, Other and GI intolerance Meperidine Hcl Midazolam GI intolerance, Nausea And Vomiting, Unknown and Other Vancomycin Other, GI intolerance and Unknown Azithromycin Other and Rash Duloxetine Other and Swelling Severe abdominal pain Severe abdominal pain Severe abdominal pain Severe abdominal pain Latex Rash Morphine GI intolerance and Nausea And Vomiting Penicillins Hives, Other, Rash and Unknown Current Outpatient Medications: carBAMazepine (TEGretol) 200 MG tablet, PRN, Disp: , Rfl: carBAMazepine XR (TEGretol XR) 200 MG 12 hr tablet, Take 200 tablets by mouth 2 (two) times a day as needed., Disp: , Rfl: desmopressin (DDAVP) 0.2 MG tablet, Take 100 mcg by mouth in the morning and 100 mcg at noon and 100 mcg in the evening., Disp: , Rfl: eletriptan (Relpax) 40 MG tablet, Take 40 mg by mouth 1 (one) time if needed., Disp: , Rfl: Est Estrogens-Methyltest (Estratest F.S.) 1.25-2.5 MG tablet, Take 1 tablet by mouth Daily, Disp: 90 tablet, Rfl: 3 ezetimibe (Zetia) 10 MG tablet, Take 10 mg by mouth in the morning., Disp: , Rfl: ezetimibe (Zetia) 10 MG tablet, Zetia, Disp: , Rfl: hydrocortisone (Cortef) 20 MG tablet, Take 20 mg by mouth in the morning and 20 mg in the evening.,Disp: , Rfl: ketorolac (Toradol) 60 MG/2ML solution injection, INJECT 2 ML INTRAMUSCULARLY EVERY 6 HOURS NEEDED, Disp: , Rfl: levothyroxine (Synthroid, Levoxyl) 50 MCG tablet, Take 1 tablet by mouth in the morning., Disp: , Rfl: liothyronine (Cytomel) 5 MCG tablet, Take 5 mcg by mouth in the morning and 5 mcg before bedtime., Disp: , Rfl: omeprazole (PriLOSEC) [address] capsule, PRN, Disp: , Rfl: ondansetron (Zofran) 8 MG tablet, Take by mouth every 8 (eight) hours if needed., Disp: , Rfl: pregabalin (Lyrica) 100 MG capsule, Take 100 mg by mouth in the morning and 100 mg in the evening.,Disp: , Rfl: promethazine (Phenergan) 25 MG tablet, Take 25 mg by mouth every 6 (six) hours if needed., Disp: , Rfl: Repatha SureClick 140 MG/ML injection, INJECT 140MG SUBCUTANEOUSLY EVERY TWO WEEKS, Disp: , Rfl: SUMAtriptan (Imitrex) 100 MG tablet, TAKE ONE TABLET BY MOUTH AFTER ONSET OF MIGRAINE, MAY REPEAT AFTER 2 HOURS IF HEADACHE RETURNS. DO NOT EXCEED 200MG IN 24 HOURS., Disp: , Rfl: tacrolimus (Protopic) 0.1 % ointment, Apply topically 2 (two) times a day Apply to affected areas bid prn when flared, Disp: 60 g, Rfl: 11 tiZANidine (Zanaflex) 4 MG tablet, Take 4 mg by mouth Daily as needed., Disp: , Rfl: Vyvanse 40 MG capsule, TAKE 1 CAPSULE BY MOUTH EVERY DAY FOR 30 DAYS, Disp: , Rfl: Xywav 500 MG/ML solution, , Disp: , Rfl: Past Medical History: Diagnosis Date Attention deficit Colitis 01/2017 Diverticulosis Dysmenorrhea Endometriosis Family history of thyroid problem Fibromyalgia Gastritis H/O tubal ligation Headache Hearing loss Hearing loss History of total vaginal hysterectomy (TVH) Hyperlipidemia (CMS/HCC) Hypothyroid (CMS/HCC) Irregular menses narcolepsy Neuropathy Osteopenia POTS (postural orthostatic tachycardia syndrome) Sleep apnea SVT (supraventricular tachycardia) (CMS/HCC) Trigeminal neuralgia (CMS/HCC) Vaginal Pap smear Past Surgical History: Procedure Laterality Date COLPOSCOPY normal HERNIA REPAIR INCONTINENCE SURGERY 2005 revision FL BODY-WORN BILAT HEARING AID SHOULDER SURGERY Right rotaor cuff repair, EDGARD-SBS SHOULDER SURGERY Left Family History Problem Relation Name Age of Onset Diabetes Mother Anemia Mother Cancer Father Hypertension Father Heart disease Father Arthritis Father Bipolar disorder Brother x2 Social History Tobacco Use Smoking Status Never Smokeless Tobacco Never Physical Exam - General appearance, mentation, extraocular movements, facial strength and movement, hearing, upper and lower extremity strength and tone, sensation to gross testing, coordination, and gait are normalor at baseline unless noted below. Physical Exam Constitutional: Appearance: Normal appearance. Genitourinary: Right Labia: No rash or lesions. Left Labia: No lesions or rash. Vaginal cuff intact. No vaginal discharge or erythema. No vaginal prolapse present. Mild vaginal atrophy present. Breasts: Right: Normal. No mass or nipple discharge. Left: Normal. No mass or nipple discharge. HENT: Head: Normocephalic and atraumatic. Cardiovascular: Rate and Rhythm: Normal rate and regular rhythm. Pulmonary: Breath sounds: Normal breath sounds. Abdominal: General: There is no distension. Palpations: Abdomen is soft. There is no mass. Tenderness: There is no abdominal tenderness. Musculoskeletal: General: Normal range of motion. Cervical back: Neck supple. Lymphadenopathy: Cervical: No cervical adenopathy. Neurological: Mental Status: She is alert and oriented to person, place, and time. Skin: General: Skin is warm and dry. Psychiatric: Mood and Affect: Mood normal. Implants Assessment/Plan ICD-10-CM 1. Encounter for gynecological examination without abnormal finding Z01.419 SENDOUT TEST MISCELLANEOUS [facility] 2. Screening for malignant neoplasm of cervix Z12.4 SENDOUT TEST MISCELLANEOUS [facility] 3. Encounter for screening mammogram for malignant neoplasm of breast Z12.31 Bilateral screening mammogram with tomosynthesis 4. Postmenopausal HRT (hormone replacement therapy) Z79.890 Est Estrogens- Methyltest (Estratest F.S.) 1.25-2.5 MG tablet Pt wishes HRT refills yearly and pap every 3 year 1. Mental Health: - Patient reports feeling blue- Plan: a) Encourage the patient to discuss her feelings with a mental health professional if symptoms persist or worsen. 2 Mammogram - Patient reports regular mammograms - Plan: a) Continue annual mammograms as recommended. 3. Vaginal Exams and Pap Smears: - Plan: a) Continue regular vaginal exams b) Pap smears are not necessary unless the patient changes sexual partners. c) Recommend HPV testing if sexual partners change. 4. HRT 5. Hormone Replacement Therapy (HRT): - Patient is currently on Estratest DS (EEMT) 1.25/2.5, managed by an currency machine operator - Family history of Alzheimer's noted - Plan: a) Continue HRT as prescribed. b) Monitor for any side effects or concerns. 6. Mammogram: - Plan: a) Remind the patient to schedule her annual mammogram. Annual 3 years Mammogram can be ordered via tele visit documented in this encounterResearch Medical [id number] Telephone encounter Note* Telephone Encounter - Ailyn Ivy RN - 09/22/2024 9:15 AM EST Botox referral sent to pharmacy. Ailyn Ivy RN [facility]11-05-2024 Miscellaneous Notes* Telephone Encounter - Ailyn Ivy RN - 09/22/2024 9:15 AM EST Botox referral sent to pharmacy. Ailyn C Komertz, RN documented in this encounterMarietta Oste[facility] Clinic11-04-2024 NoteHNO ID: [id number] Author: PALOMO DAVALOS MD Service: ? Author Type: Physician Type: Progress Notes Filed: 09/21/2024 10:54 Note Text: Follow-Up Onabotulinum Toxin A (BotoxTM) for Migraine Indication: Chronic Intractable Migraine Referral Expiration: 11/30/2024 Prior to the initiation of the FIRST treatment with Onabotulinum Toxin A, the patient reported the following average headache frequency over the past 3 MONTHS: Number of moderate-severe migraine days/month: 12 Number of mild migraine days/month: 13 Number of headache free days/month: 5 (120 headache-free hours) After treatment with Onabotulinum Toxin A: Number of moderate-severe migraine days/month: 4 Number of mild migraine days/month: 5 Number of headache free days/month: 21 (504 headache-free hours) Patient reduction in overall migraine days: Yes Patient reduction in moderate-severe migraine days: Yes Patient reduction of headache hours by 100 hours or more: Yes (reduction of 384 hours) Individual has obtained clinical benefit deemed significant by individual or prescriber (Y/N): Yes Patient's quality of life and ability to perform ADLs has improved (Y/N): Yes Wearing off: No The patient has been assessed for disorders which could contribute to breathing or swallowing difficulty, and there is no contraindication with PREEMPT Botox. There is no documented allergic reaction/hypersensitivity to any botulinum toxin and there is no active infection at proposed injection site. HEADACHE SCORES: 02/19/2022 05/28/2022 Headache Questions ER visits since last office visit: 0 0 Hospital stays since last office visit 0 0 Limited ADLs in the last month: 8 Days headache pain free in the last month: 22 Days per month with ALL of the following symptoms - decreased productivity, light sensitivity and nausea: 8 Initial improvement of headache after botox injection at last visit: Very much improved Very much improved PRN medication usage in the last month: 8 Patient impression of improvement since last visit: Very much improved Very much improved 02/19/2022 05/28/2022 HIT-6 HIT-6 64 (Severe impact) Incomplete 02/19/2022 MARIA ESTHER - 2/7 SCORES MARIA ESTHER-2 Score 3 MARIA ESTHER-7 Score 5 10/01/2023 04/02/2024 07/08/2024 PHQ-9 Score 6 5 5 3 BP 119/80 (BP Site: Left Arm, BP Position: Sitting, BP Cuff Size: Regular Adult) Pulse 75 Patient name: Pao Lion : 1970 ALLERGIES Allergen Reactions - Biaxin [Clarithromy* GI Upset - Sutures Rash, Hives, Swelling, Itching Specifically, cat gut sutures - Cymbalta [Duloxetin* Swelling Severe abdominal pain - Demerol [Meperidine* Vomiting - Indomethacin Swelling Had 4+ edema in legs and arms the day after taking a new prescription. - Liquid Bandage (Cya* Rash Dermabond/exofin - Morphine Vomiting - Naproxen GI Upset - Penicillins Rash, Hives Patient can tolerate Augmentin - Vancomycin GI Upset - Versed [Midazolam H* Vomiting - Z Pack [Azithromyci* Rash, GI Upset UNIVERSAL PROTOCOL / SAFETY CHECKLIST Procedure: Onabotulinum toxin A for migraine Informed Consent Consent Obtained: Written [place] Protocol A moment to CARE was completed SIGN IN Personnel directly involved with the procedure wore the appropriate PPE Special Equipment: N/A Patient/Surrogate Stated/Verified: Patient name, Date of , Relevant allergies and Intended procedure TIME OUT Intended patient and procedure match the source document(s) Consent documented and matches the intended procedure No relevant labs, photos, and/or imaging studies were applicable for review. No correct side/site applicable for marking and visibility. No medications required for procedure. No fire risk assessment and interventions applicable. No implant(s) inserted. SIGN OUT No specimen collected. No instruments, equipment or retained foreign bodies applicable. Post-procedure follow-up management communicated and Plan of Care Visit completed when applicable Written Consent Obtained: Written Injection Sites Left (Units) Left (Sites) Right (Units) Right (Sites) TOTAL (Units) Used Car Make Ready Worker 5 1 5 1 10 Procerus Units: 5 Sites: 1 5 Frontalis 10 2 10 2 20 Temporalis 45 9 40 8 85 Occipitalis 15 3 15 3 30 Cervical PSP 10 2 10 2 20 Trapezius 15 3 15 3 30 Total Units used: 200 Total Units wasted: 0 Prior Therapies Duration of Use Dose Side effect Palomo Davalos [facility]11-04-2024 History of Present illness Narrative* Palomo Davalos MD - 09/21/2024 10:54 AM EST Images from the original note were not included. Follow-Up Onabotulinum Toxin A (BotoxTM) for Migraine Indication: Chronic Intractable Migraine Referral Expiration: 11/30/2024 Prior to the initiation of the FIRST treatment with Onabotulinum Toxin A, the patient reported the following average headache frequency over the past 3 MONTHS: Number of moderate-severe migraine days/month: 12 Number of mild migraine days/month: 13 Number of headache free days/month: 5 (120 headache-free hours) After treatment with Onabotulinum Toxin A: Number of moderate-severe migraine days/month: 4 Number of mild migraine days/month: 5 Number of headache free days/month: 21 (504 headache-free hours) Patient reduction in overall migraine days: Yes Patient reduction in moderate-severe migraine days: Yes Patient reduction of headache hours by 100 hours or more: Yes (reduction of 384 hours) Individual has obtained clinical benefit deemed significant by individual or prescriber (Y/N): Yes Patient's quality of life and ability to perform ADLs has improved (Y/N): Yes Wearing off: No The patient has been assessed for disorders which could contribute to breathing or swallowing difficulty, and there is no contraindication with PREEMPT Botox. There is no documented allergic reaction/hypersensitivity to any botulinum toxin and there is no active infection at proposed injection site. HEADACHE SCORES: 02/19/2022 05/28/2022 Headache Questions ER visits since last office visit: 0 0 Hospital stays since last office visit 0 0 Limited ADLs in the last month: 8 Days headache pain free in the last month: 22 Days per month with ALL of the following symptoms - decreased productivity, light sensitivity and nausea: 8 Initial improvement of headache after botox injection at last visit: Very much improved Very much improved PRN medication usage in the last month: 8 Patient impression of improvement since last visit: Very much improved Very much improved 02/19/2022 05/28/2022 HIT-6 HIT-6 64 (Severe impact) Incomplete 02/19/2022 MARIA ESTHER - 2/7 SCORES MARIA ESTHER-2 Score 3 MARIA ESTHER-7 Score 5 10/01/2023 04/02/2024 07/08/2024 PHQ-9 Score 6 5 5 3 BP 119/80 (BP Site: Left Arm, BP Position: Sitting, BP Cuff Size: Regular Adult) Pulse 75 Patient name: Pao Lion : 1970 ALLERGIES Allergen Reactions Biaxin [Clarithromy* GI Upset Sutures Rash, Hives, Swelling, Itching Specifically, cat gut sutures Cymbalta [Duloxetin* Swelling Severe abdominal pain Demerol [Meperidine* Vomiting Indomethacin Swelling Had 4+ edema in legs and arms the day after taking a new prescription. Liquid Bandage (Cya* Rash Dermabond/exofin Morphine Vomiting Naproxen GI Upset Penicillins Rash, Hives Patient can tolerate Augmentin Vancomycin GI Upset Versed [Midazolam H* Vomiting Z Pack [Azithromyci* Rash, GI Upset UNIVERSAL PROTOCOL / SAFETY CHECKLIST Procedure: Onabotulinum toxin A for migraine Informed Consent Consent Obtained: Written [place] Protocol A moment to CARE was completed SIGN IN Personnel directly involved with the procedure wore the appropriate PPE Special Equipment: N/A Patient/Surrogate Stated/Verified: Patient name, Date of , Relevant allergies and Intended procedure TIME OUT Intended patient and procedure match the source document(s) Consent documented and matches the intended procedure No relevant labs, photos, and/or imaging studies were applicable for review. No correct side/site applicable for marking and visibility. No medications required for procedure. No fire risk assessment and interventions applicable. No implant(s) inserted. SIGN OUT No specimen collected. No instruments, equipment or retained foreign bodies applicable. Post-procedure follow-up management communicated and Plan of Care Visit completed when applicable Written Consent Obtained: Written Injection Sites Left (Units) Left (Sites) Right (Units) Right (Sites) TOTAL (Units) Used Car Make Ready Worker 5 1 5 1 10 Procerus Units: 5 Sites: 1 5 Frontalis 10 2 10 2 20 Temporalis 45 9 40 8 85 Occipitalis 15 3 15 3 30 Cervical PSP 10 2 10 2 20 Trapezius 15 3 15 3 30 Total Units used: 200 Total Units wasted: 0 Prior Therapies Duration of Use Dose Side effect Palomo Davalos MD documented [facility] History of Present illness Narrative* ORACIO Gillespie - 08/27/2024 3:30 PM EDT Images from the original note were not included. 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 On lyrica for neuropathic itch which is helping. Associated symptoms: red spots; like hives Treatments tried and failed: antihistamines--ineffective, TAC cream Current treatments: hydroxyzine, HC cream, betamethasone cream (helps some on the legs, not on the hands and feet) New patient All pertinent medical history, medications, and allergies were reviewed. General Exam: alert, oriented to person, place, and time, normal affect, well appearing Accompanied by Mom A focused exam completed based on patient reported problems, see below: 1. Other atopic dermatitis Left Lower Leg - Anterior, Right Lower Leg - Anterior Scaly erythematous plaques +/- dyspigmentation, lichenification, excoriations. Flaring today. Discussed that atopic dermatitis is a chronic condition that can be controlled but not cured. Patient has tried multiple creams here including TAC and Betamethasone twice and day. She continues to have new spots that flare despite treatment. Will have her start Protopic ointment bid prn when flared, hold if smooth/asymptomatic. Discontinue use of betamethasone as prison use of topical steroidsis contraindicated. Encouraged daily moisturizing and gentle cleansers to prevent flares. Offered biopsy today, patient declines at this time. If no improvement at follow up will consider biopsy. Notify office if flaring despite treatment. Related Medications tacrolimus (Protopic) 0.1 % ointment Apply topically 2 (two) times a day Apply to affected areas bid prn when flared 2. Molluscum contagiosum Clear today. It was discussed that molluscum contagiosum lesions are described in the literature as benign, self-limited lesions. It was also discussed that these lesions may multiply before they resolve. Therefore, treatment options were discussed-no treatment (lesions will eventually resolve) vs topical adapalene. Adapalene samples given for treatment. Informed patient/parent that if samples aren't enough, OTC adapalene can be purchased. If lesions have not resolved after a few months, patient can return to office for an alternative treatment. Discussed applying a thin layer of adapalene with a Q-tip directly to lesions at bedtime. Instructed not to apply to normal skin. Expect areas to become red and inflamed; this is the desired response. Treatment can be discontinued once areas are red and inflamed. Discussed that discoloration may continue after lesion has resolved and will eventually fade. Next Visit: 1 month documented in this encounterResearch Medical [id number] NoteHNO ID: [id number] Author: FERNANDO HUNT DO Service: ? Author Type: Resident Type: Progress Notes Filed: 08/29/2024 13:13 Note Text: Post Op Note August 20, 2024 3:12 PM CC: Hematoma s/p right inguinal hernia repair on 07/30 Complaints: Patient denies pain or discomfort associated with hematoma. States it has decreased in size, but was initially concerned that the hernia had returned. BP 111/84 Pulse 87 Ht 5' .05 (1.53m) Wt 130 lb (59.0kg) BMI 25.36 kg/(m2). AANDO NAD Incision with contact dermatitis 2/2 to derma chin noted Pathology: Benign nerve with reactive changes. Assessment 1. S/P right inguinal hernia repair Patient did have hematoma following surgery that was first reported on 08/06. Recommended ice packs and heating pads. She has been using them intermittently but denies pain. Patient can follow up as needed. 2. Allergic reaction, initial encounter Contact dermatitis noted to right inguinal incision but remains intact. Allergies updated in chart. Fernando Hunt DO General Surgery Staff [facility]10-03-2024 History of Present illness Narrative* Fernando Hunt DO - 08/20/2024 3:11 PM EDT Post Op Note August 20, 2024 3:12 PM CC: Hematoma s/p right inguinal hernia repair on 07/30 Complaints: Patient denies pain or discomfort associated with hematoma. States it has decreased in size, but was initially concerned that the hernia had returned. BP 111/84 Pulse 87 Ht 5' .05 (1.53m) Wt 130 lb (59.0kg) BMI 25.36 kg/(m^2). A&O NAD Incision with contact dermatitis 2/2 to derma chin noted Pathology: Benign nerve with reactive changes. Assessment 1. S/P right inguinal hernia repair Patient did have hematoma following surgery that was first reported on 08/06. Recommended ice packs and heating pads. She has been using them intermittently but denies pain. Patient can follow up as needed. 2. Allergic reaction, initial encounter Contact dermatitis noted to right inguinal incision but remains intact. Allergies updated in chart. Fernando Hunt DO General Surgery Staff [facility] * Cristina Green DO - 08/20/2024 3:06 PM EDT Post Op Note August 20, 2024 3:06 PM CC: s/p open RIH repair Complaints: feeling better, has a lump, consistent with hematoma BP 111/84 Pulse 87 Ht 5' .05 (1.53m) Wt 130 lb (59.0kg) BMI 25.36 kg/(m^2). A&O NAD Incision: healed, residual dermatitis Assessment 1. S/P right inguinal hernia repair Stable, improving, no apparent recurrence. 2. Allergic reaction, initial encounter From skin glue Advised hydrocortisone cream Cristina Green DO General Surgery Staff [facility] [phone] documented in this encounterMarietta [facility]10-03-2024 NoteHNO ID: [id number] Author: CRISTINA GREEN DO Service: ? Author Type: Physician Type: Progress Notes Filed: 08/29/2024 13:13 Note Text: Post Op Note August 20, 2024 3:06 PM CC: s/p open RIH repair Complaints: feeling better, has a lump, consistent with hematoma BP 111/84 Pulse 87 Ht 5' .05 (1.53m) Wt 130 lb (59.0kg) BMI 25.36 kg/(m2). AANDO NAD Incision: healed, residual dermatitis Assessment 1. S/P right inguinal hernia repair Stable, improving, no apparent recurrence. 2. Allergic reaction, initial encounter From skin glue Advised hydrocortisone cream Cristina Green DO General Surgery Staff [facility] [phone]09-[facility] Telephone encounter Note* Telephone Encounter - Marleni Bedolla RN - 08/11/2024 9:36 AM EDT Spoke with pt: No rash or redness severe itching started days ago - not able to provide date of when started has tried benadryl and allergy pills without relief reviewed with pt she could go to express care or check with pcp as not likely related to surgery on07/30I [facility]09-24-[facility] Miscellaneous Notes* Telephone Encounter - Marleni Bedolla RN - 08/11/2024 9:36 AM EDT Spoke with pt: No rash or redness severe itching started days ago - not able to provide date of when started has tried benadryl and allergy pills without relief reviewed with pt she could go to express care or check with pcp as not likely related to surgery on07/30 documented in this encounterMarietta [facility]09-23-2024 Telephone encounter Note * Telephone Encounter - Marleni Bedolla RN - 08/10/2024 8:14 AM EDT Spoke with pt: got a little worse - that is why sent pictures on 08/08 at 1214AM - no changes since sending pictures Denies any pain Little softer since using heat Is alternating heat and ice as recommended at - frequently - not able to verbalize how often or how long she is using frequently Pt reports she was sending for update I on update [facility]09-23-[facility] Miscellaneous Notes* Telephone Encounter - Marleni Bedolla RN - 08/10/2024 8:14 AM EDT Spoke with pt: got a little worse - that is why sent pictures on 08/08 at 1214AM - no changes since sending pictures Denies any pain Little softer since using heat Is alternating heat and ice as recommended at - frequently - not able to verbalize how often or how long she is using frequently Pt reports she was sending for update FYI on update documented in this encounterMarietta [facility] Clinic09-19-2024 NoteHNO ID: [id number] Author: CRISTINA GREEN, DO Service: ? Author Type: Physician Type: Progress Notes Filed: 08/06/2024 13:12 Note Text: SURGERY VIRTUAL VISIT FOLLOW UP I have communicated my name and active licensure. The patient's identity and physical location were verified at the time of this visit. Either the patient or their legal retail wireless sales representative has been informed of the risks and benefits of -- and alternatives to -- treatment through a remote evaluation and consents to proceed with the evaluation remotely. I had a virtual visit with Ms. Lion today for follow up of swelling s/p RIH repair on .07/30 UPDATED HISTORY: Pao Lion is a 54 year old female with large lump under the scar from the RIH repair Pictures sent and viewed Pain has subsided It was squishy , then turned hard yesterday. No other complaints at this time PHYSICAL FINDINGS OF NOTE: General - Normal, healthy, cooperative, in no acute distress Able to interact verbally by video conference Pulmonary - respiratory effort normal Abdominal - Not performed--pictures attached to [employer] message Motor - patient seen sitting with Normal appearing strength and coordination Medical Decision Making: Assessment Assessment AND Diagnosis: Pao Lion is a 54 year old female with apparent postop hematoma, mildly symptomatic Treatment plan: Ice packs/heating pads alternating Expect slow resolution over the next 2-3 months Risk of morbidity, mortality and/or complications of treatment plan: low I spent a total of 10 minutes on the date of the service which included preparing to see the patient, [id number] patient care, completing clinical documentation, and counseling and educating the patient/family/caregiver. [facility]09-19-20[facility] History of Present illness Narrative* Cristina Green DO - 08/06/2024 1:06 PM EDT SURGERY VIRTUAL VISIT FOLLOW UP I have communicated my name and active licensure. The patient's identity and physical location wereverified at the time of this visit. 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 I had a virtual visit with Ms. Lion today for follow up of swelling s/p RIH repair on .07/30 UPDATED HISTORY: Pao Lion is a 54 year old female with large lump under the scar from the RIH repair Pictures sent and viewed Pain has subsided It was squishy , then turned hard yesterday. No other complaints at this time PHYSICAL FINDINGS OF NOTE: General - Normal, healthy, cooperative, in no acute distress Able to interact verbally by video conference Pulmonary - respiratory effort normal Abdominal - Not performed--pictures attached to [employer] message Motor - patient seen sitting with Normal appearing strength and coordination Medical Decision Making: Assessment Assessment & Diagnosis: Pao Lion is a 54 year old female with apparent postop hematoma, mildly symptomatic Treatment plan: Ice packs/heating pads alternating Expect slow resolution over the next 2-3 months Risk of morbidity, mortality and/or complications of treatment plan: low I spent a total of 10 minutes on the date of the service which included preparing to see the patient, [id number] patient care, completing clinical documentation, and counseling and educating the patient/family/caregiver. documented in this encounterMarietta [facility]09-19-2024 Telephone encounter Note * Telephone Encounter - Marleni Bedolla RN - 08/06/2024 10:40 AM EDT Spoke with pt: pt reports she is still swollen from surgery - not worse but no improvement denies pain pt reports entire incision is hard and protruding out? pt is concern for hematoma - using heat denies any drainage and fever discussed sending pictures in mychart prior to appointment for provider to review Offered and accepted VV with [facility] for today [facility]09-19-[facility]24 Miscellaneous Notes* Telephone Encounter - Marleni Bedolla RN - 08/06/2024 10:40 AM EDT Spoke with pt: pt reports she is still swollen from surgery - not worse but no improvement denies pain pt reports entire incision is hard and protruding out? pt is concern for hematoma - using heat denies any drainage and fever discussed sending pictures in mychart prior to appointment for provider to review Offered and accepted VV with [facility] for today * Telephone Encounter - Sandra Wiggins - 08/06/2024 10:10 AM EDT Patient states area of incision went from soft to hard and there is no pain. No discharge and no odor. Is this normal? Patient can be reached at [phone] documented in this encounterMarietta [facility] Clinic09-19-2024 Telephone encounter Note * Telephone Encounter - Sandra Wiggins - 08/06/2024 10:10 AM EDT Patient states area of incision went from soft to hard and there is no pain. No discharge and no odor. Is this normal? Patient can be reached at [phone] [facility]09-13-[facility] Telephone encounter Note* Telephone Encounter - Marleni Bedolla RN - 07/31/2024 11:29 AM EDT Spoke with pt: Right inguinal hernia Pain with moving up and down - otherwise none Denies drainage and bleeding Denies any issue with urination Has had BM Reminded of post op on 08/17 Discussed return call with questions or concerns - reports understanding and intent to comply FYI [facility]09-13-2024 Miscellaneous Notes* Telephone Encounter - Marleni Bedolla RN - 07/31/2024 11:29 AM EDT Spoke with pt: Right inguinal hernia Pain with moving up and down - otherwise none Denies drainage and bleeding Denies any issue with urination Has had BM Reminded of post op on 08/17 Discussed return call with questions or concerns - reports understanding and intent to comply FYI documented in this encounterMarietta [facility] Clinic08-29-2024 History and physical note * Sania Bourne APRN.LAURI - 07/16/2024 3:10 PM EDT Images from the original note were not included. [facility] HISTORY AND PHYSICAL EXAMINATION SERVICE DATE: 07/16/2024 SERVICE TIME: 3:02 PM Patient has been identified by name and date of : Yes Reason for contact: PACC visit Accompanied by: Self This is a virtual visit using [employer] Zoom Video Visit. It required patient- provider interaction for the medical decision making as documented below. I have communicated my name and active licensure. The patient's identity and physical location wereverified at the time of this visit. Either the patient or their legal retail wireless sales representative has been informed of the risks and benefits of and alternatives to treatment through a remote evaluation and consents to proceed with the evaluation remotely. PRIMARY CARE PHYSICIAN: David Mayfield DO REASON FOR VISIT: Pao Lion is a 54 year old female who is scheduled for Right - REPAIR INITIAL INGUINAL HERNIA= OR > AGE 5 REDUCIBLE PRICILLA APPROACH WITH MESH at the request of Dr. Cristina Green for consultation. My final recommendation will be communicated back to the requesting physician by way ofshared medical record or letter. Assessment POTS (postural orthostatic tachycardia syndrome) Assessment: On DDAVP Following with cardiology at [facility]- last OV 01/31/2024- stable Denies recent syncope or increased symptoms Adrenal insufficiency Assessment: Follows with Dr. Cheek in [place], [place]- records requested No current medication States takes a stress dose of 100mg Solumedrol prior to surgeries Hypothyroidism Assessment: Managed on medication by endocrinology Dyslipidemia Assessment: Managed on medication by PCP and cardiology Narcolepsy Assessment: Managed on Xywav and Lisdexamfetamine Following with neurology- last visit 07/09/2024 History of diverticulitis Assessment: Diagnosed with diverticulitis 07/13 and placed on Augmentin States symptoms have improved Trigeminal neuralgia Assessment: Takes medication PRN, has not needed recently Walker Activity Status Index: METS: Walk indoors, such as around the house (1.75 METs) Do light work around the house, such as dusting or washing dishes (2.70 METs) Take care of self; that is eating, dressing, bathing, using the toilet (2.75 METs) Walk a block or two on level ground (2.75 METs) Do moderate work around the house, such as vacuuming, sweeping floors, or carrying in groceries (3.50 METs) Do yardwork, such as raking leaves, weeding, or pushing a power mower (4.50 METs) Climb a flight of stairs or walk up a hill (5.50 METs) DASI Score: 23.45 Clinical Frailty Scale: 3. Well, with treated comorbid disease STOP-Bang Score: Snores loudly Often feels tired, fatigued, or sleepy during the daytime Patient over 50 years old Has not been observed to stop breathing or choking/gasping during sleep Denies having high blood pressure BMI less than or equal to 35 kg/m^2 Does not have a large neck Non-male patient STOP-Bang Score: 3 [id number] Score: Age: <65 Sex: female CHF history: No Hypertension history: No Stroke/TIA/thromboembolism history: No Vascular disease history: No Diabetes history: No [id number] Score: 1 ANESTHESIA FINDINGS: Intubation History: No history of difficult intubation Significant Anesthesia Considerations: Adrenal insuffiency- requires stress test steroids prior to surgery Airway History: No history of difficult airway I - PHYSICAL EVALUATION AIRWAY Patient intubated: No. Tracheostomy tube not present Mallampati: II. TM distance: >3 FB. Neck ROM: full ROM without neurological symptoms. Mouth opening: adequate. Short neck: no. Thick neck: no DENTAL Dental findings: teeth intact. II - ANESTHESIA PLAN Anesthetic plan additional comments: *PACC/TCI - anesthesia choice. Beta Tyree Monitoring Plan Post Procedure Analgesic Plan Prepared for surgery: This patient is optimally prepared for surgery. CONSULTS: Patient does not require consults for optimization at this time. The Following Tests/Procedures Have Been Initiated: Orders Placed This Encounter amoxicillin-clavulanate potassium (AUGMENTIN) 875-125 mg per tablet Sig: Take 1 tablet by mouth two times a day. Planned Anesthetic: Per anesthesia choice Subjective CHIEF COMPLAINT: Pre-op visit HPI: 54 year old female with right groin bulge for about 2 months that has caused some discomfort. Diagnosed with inguinal hernia Elected for above surgery REVIEW OF SYSTEMS: PAIN ASSESSMENT: General: No weight loss, malaise or fevers. Neuro: Negative for TIA's Seizures + trigeminal neurologia + narcolepsy Respiratory: No history of current cough or dyspnea, or pneumonia in the past 6 weeks. No history of respiratory/pulmonary symptoms or problems. Cardiovascular: Negative for CAD, Chest Pain, DVT/PE + POTS + HLD GI: No history of GI symptoms or problems. No history of esophageal varices, recent ascites, or ETOH greater than 2 drinks per day. : No history of dysuria, frequency or incontinence,, stones or chronic kidney disease INSTITUTIONAL COMMODITY ANALYST: Negative for abnormal vaginal bleeding, abnormal vaginal discharge. : Denies, No LMP recorded. Patient has had a hysterectomy. Endocrine: NO DM + adrenal insuffiencey + hypothyroid Hematology: No history of bleeding or clotting disorder. Pt is not taking anti- coagulation or platelet medications. No history of hematological symptoms or problems. Oncology: No history of CA metastasis, chemo within 30 days, or radiotherapy within 90 days. Has not lost 10% of body wt in 6 months. No history of oncological symptoms or problems. Psych: Anxiety Musculoskeletal: Back pain and Joint pain Skin: Negative for lesions, rash and itching. 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 Intractable Chronic Migraine Without Aura and Without Status Migrainosus Conductive Hearing Loss, Bilateral Tinnitus, Bilateral Cholesteatoma, Middle Ear, Left Pots (Postural Orthostatic Tachycardia Syndrome) Supraventricular Tachycardia (Hcc) Right Inguinal Hernia History of Diverticulitis Covid Immunization Dates Overdue - Covid-19 Vaccine (2022- season) Overdue since 07/19/2023 11/23/2022 Imm Admin: COVID-19 vaccine, age 12+ yr, bivalent (MODERNA) 07/19/2021 Imm Admin: COVID-19 original vaccine, full dose, monovalent (MODERNA) 02/16/2021 Imm Admin: COVID-19 original vaccine, full dose, monovalent (MODERNA) 01/19/2021 Imm Admin: COVID-19 original vaccine, full dose, monovalent (MODERNA) PAST MEDICAL HISTORY No date: Dyslipidemia No date: Fracture No date: Hearing difficulty Comment: bilateral bone achored hearing aids - implants No date: Hyperglycemia No date: Hypothyroidism No date: Migraine No date: Narcolepsy Comment: Mild No date: Osteopenia No date: PMH - PAST MEDICAL HISTORY OF Comment: Thyroid problems No date: PMH - PAST MEDICAL HISTORY OF Comment: rt. rotator cuff No date: POTS (postural orthostatic tachycardia syndrome) No date: Radiculopathy Comment: lower, right moderate, left mild No date: Sleep apnea No date: Trigeminal neuralgia Comment: Left PAST SURGICAL HISTORY 06/2017: ABDOMINOPLASTY UMBILICAL TRANSPOSITION AND FASCIAL No date: LIG/TRNSXJ FLP TUBE ABDL/VAG APPR UNI/BI No date: PAST SURGICAL HISTORY OF Comment: Ear surgery tubes No date: PAST SURGICAL HISTORY OF Comment: deviated septum 2005: PAST SURGICAL HISTORY OF Comment: hysterectomy, vaginal taping No date: PAST SURGICAL HISTORY OF Comment: epideral back injections No date: PAST SURGICAL HISTORY OF Comment: Rt. rotator cuff repair 06/25/2011: PAST SURGICAL HISTORY OF Comment: IMPLANT OSSEOINTEGRATED IMPLANT TEMPORAL BONE W/ PERC ATTACH TO STIMULATOR W/O MASTOIDECTOMY 2012: PAST SURGICAL HISTORY OF Comment: right rotator cuff repair 2006: PAST SURGICAL HISTORY OF Comment: ovaries and fallopian tubes removed 11/2014: PAST SURGICAL HISTORY OF Comment: Interstim No date: ROTATOR CUFF REPAIR; Left No date: TONSILLECTOMY & ADENOIDECTOMY AGE 14/> FAMILY HISTORY Problem Relation Age of Onset Heart Mother TIA Heart Father COPD Father Headache Sister Asthma Brother Asthma Daughter Cancer Son hodgkins lymphoma Asthma Son Headache Other niece Difficulty with anesthesia No Family History Social History Tobacco Use Smoking status: Former Current packs/day: 0.00 Average packs/day: 1 pack/day for 18.0 years (18.0 ttl pk-yrs) Types: Cigarettes Start date: 09/27/1976 Quit date: 09/27/1994 Years since quittin.8 Smokeless tobacco: Never Vaping Use Vaping status: Never Used Substance Use Topics Alcohol use: Not Currently Drug use: No Comment: denies tx for drug/alcohol abuse in the past. Prior to Admission medications as of 07/09/241814 Medication Sig Last Dose Taking amoxicillin-clavulanate potassium (AUGMENTIN) 875-125 mg per tablet Take 1 tablet by mouth two times a day. Yes lisdexamfetamine (VYVANSE) 50 mg capsule Take 1 capsule by mouth once daily for 30 days. Yes Milnacipran (SAVELLA) 12.5 mg tab Take 12.5 mg by mouth once daily. Yes XYWAV 0.5 gram/mL soln oral liquid Take 9 mL by mouth at bedtime and 4 hours after. Yes ondansetron (ZOFRAN) 8 mg tablet Take by mouth three times a day as needed. Yes levothyroxine (SYNTHROID) 50 mcg tablet TAKE 1 TABLET BY MOUTH SATURDAY THROUGH SATURDAY. SKIP SATURDAY. Yes dexAMETHasone sodium phosphate (DECADRON) 4 mg/mL injection INJECT 1ML (4MG) INTRAMUSCULARLY EVERY 6 HOURS NEEDED FOR ADRENAL STRESS, USE WHEN VOMITING OR DIARRHEA PREVENTS USE OF THE ORAL DOSE. Yes desmopressin acetate (DDAVP) 0.1 mg tablet Take 0.1 mg by mouth three times daily. Yes liothyronine (CYTOMEL) 5 mcg tablet Take 5 mcg by mouth twice daily. Yes carBAMazepine (TEGRETOL) 200 mg tablet Take 2 tablets by mouth three times daily. Yes ezetimibe (ZETIA) 10 mg tablet Take 10 mg by mouth every morning. Yes REPATHA SURECLICK 140 mg/mL pen injector INJECT 140 MG UNDER THE SKIN EVERY 2 WEEKS Yes hydrOXYzine HCl (ATARAX) 25 mg tablet Take 25 mg by mouth as needed. Yes omeprazole (PRILOSEC) 40 mg capsule Take 40 mg by mouth as needed. Yes SUMAtriptan (IMITREX) 100 mg tablet Take 100 mg by mouth. Yes esterified estrogens-methylTESTOSTERone (ESTRATEST) 1.25-2.5 mg per tablet Take 1 tablet by mouth once daily. Yes tiZANidine (ZANAFLEX) 4 mg tablet Take 4 mg by mouth as needed. Yes lisdexamfetamine (VYVANSE) 50 mg capsule Take 1 capsule by mouth once daily for 30 days. Patient should start on August 08, 2024. lisdexamfetamine (VYVANSE) 50 mg capsule Take 1 capsule by mouth once daily for 30 days. Patient should start on September 07, 2024. keTORolac (TORADOL) 60 mg/2 mL soln INJECT 2ML INTRAMUSCULARLY ONE TIME ONLY FOR 1 DOSE No medication comments found. ALLERGIES Allergen Reactions Biaxin [Clarithromy* GI Upset Sutures Rash, Hives, Swelling, Itching Specifically, cat gut sutures Cymbalta [Duloxetin* Swelling Severe abdominal pain Demerol [Meperidine* Vomiting Indomethacin Swelling Had 4+ edema in legs and arms the day after taking a new prescription. Morphine Vomiting Naproxen GI Upset Penicillins Rash, Hives Patient can tolerate Augmentin Vancomycin GI Upset Versed [Midazolam H* Vomiting Z Pack [Azithromyci* Rash, GI Upset Objective PHYSICAL EXAM: VITALS: Resp 18 Ht 5' .5 (1.54m) Wt 125 lb (56.7kg) BMI 24.00 kg/(m^2). VIDEO EXAM: (if completed, performed via video enabled technology) GENERAL: alert and appropriate, in no distress SKIN: no rash noted EYES: no injection and visual acuity is grossly normal OROPHARYNX: moist mucus membranes NECK: full ROM, no cervical LNs noted RESPIRATORY: breathing non-labored CHEST: equal chest rise with normal respiratory effort HEART: 80 bpm palpated by patient- no irregularity, no edema or JVD ABDOMEN: soft and non-tender NEUROLOGIC: no obvious deficit Diagnostic tests reviewed for today's visit: Recent Results (from the past 8760 hour(s)) ECG COMPLETE Collection Time: 12/16/23 5:24 PM Result Value Ventricular Rate 82 Atrial Rate 82 P-R Interval 126 QRS Duration 82 QT Interval 370 QTC Calculation (Bazett) 432 Calculated P Callery 65 Calculated R Callery 34 Calculated T Callery 30 Impression NORMAL SINUS RHYTHM NORMAL ECG Confirmed by MD CLAUDIA, [facility] ([id number]) on 12/31/2023 2:59:40 PM Instructions Given to Patient: Instructions located in the after visit summary. Patient given verbal and written preop instructions and voices comprehension and compliance. SIGNATURE: Sania Bourne APRN.CNP PATIENT NAME: Pao Lion DATE: 07/16/2024 TIME: [facility]08-29-2024 History and physical note* Sania Bourne APRN.CNP - 07/16/2024 3:10 PM EDT Images from the original note were not included. [facility] HISTORY AND PHYSICAL EXAMINATION SERVICE DATE: 07/16/2024 SERVICE TIME: 3:02 PM Patient has been identified by name and date of : Yes Reason for contact: PACC visit Accompanied by: Self This is a virtual visit using [employer] Video Visit. It required patient- provider interaction for the medical decision making as documented below. I have communicated my name and active licensure. The patient's identity and physical location wereverified at the time of this visit. Either the patient or their legal retail wireless sales representative has been informed of the risks and benefits of and alternatives to treatment through a remote evaluation and consents to proceed with the evaluation remotely. PRIMARY CARE PHYSICIAN: David Mayfield DO REASON FOR VISIT: Pao Lion is a 54 year old female who is scheduled for Right - REPAIR INITIAL INGUINAL HERNIA= OR > AGE 5 REDUCIBLE PRICILLA APPROACH WITH MESH at the request of Dr. Cristina Green for consultation. My final recommendation will be communicated back to the requesting physician by way ofshared medical record or letter. Assessment POTS (postural orthostatic tachycardia syndrome) Assessment: On DDAVP Following with cardiology at [facility]- last OV 01/31/2024- stable Denies recent syncope or increased symptoms Adrenal insufficiency Assessment: Follows with Dr. Cheek in [place], [place]- records requested No current medication States takes a stress dose of 100mg Solumedrol prior to surgeries Hypothyroidism Assessment: Managed on medication by endocrinology Dyslipidemia Assessment: Managed on medication by PCP and cardiology Narcolepsy Assessment: Managed on Xywav and Lisdexamfetamine Following with neurology- last visit 07/09/2024 History of diverticulitis Assessment: Diagnosed with diverticulitis 07/13 and placed on Augmentin States symptoms have improved Trigeminal neuralgia Assessment: Takes medication PRN, has not needed recently Walker Activity Status Index: METS: Walk indoors, such as around the house (1.75 METs) Do light work around the house, such as dusting or washing dishes (2.70 METs) Take care of self; that is eating, dressing, bathing, using the toilet (2.75 METs) Walk a block or two on level ground (2.75 METs) Do moderate work around the house, such as vacuuming, sweeping floors, or carrying in groceries (3.50 METs) Do yardwork, such as raking leaves, weeding, or pushing a power mower (4.50 METs) Climb a flight of stairs or walk up a hill (5.50 METs) DASI Score: 23.45 Clinical Frailty Scale: 3. Well, with treated comorbid disease STOP-Bang Score: Snores loudly Often feels tired, fatigued, or sleepy during the daytime Patient over 50 years old Has not been observed to stop breathing or choking/gasping during sleep Denies having high blood pressure BMI less than or equal to 35 kg/m^2 Does not have a large neck Non-male patient STOP-Bang Score: 3 [id number] Score: Age: <65 Sex: female CHF history: No Hypertension history: No Stroke/TIA/thromboembolism history: No Vascular disease history: No Diabetes history: No [id number] Score: 1 ANESTHESIA FINDINGS: Intubation History: No history of difficult intubation Significant Anesthesia Considerations: Adrenal insuffiency- requires stress test steroids prior to surgery Airway History: No history of difficult airway I - PHYSICAL EVALUATION AIRWAY Patient intubated: No. Tracheostomy tube not present Mallampati: II. TM distance: >3 FB. Neck ROM: full ROM without neurological symptoms. Mouth opening: adequate. Short neck: no. Thick neck: no DENTAL Dental findings: teeth intact. II - ANESTHESIA PLAN Anesthetic plan additional comments: *PACC/TCI - anesthesia choice. Beta Tyree Monitoring Plan Post Procedure Analgesic Plan Prepared for surgery: This patient is optimally prepared for surgery. CONSULTS: Patient does not require consults for optimization at this time. The Following Tests/Procedures Have Been Initiated: Orders Placed This Encounter amoxicillin-clavulanate potassium (AUGMENTIN) 875-125 mg per tablet Sig: Take 1 tablet by mouth two times a day. Planned Anesthetic: Per anesthesia choice Subjective CHIEF COMPLAINT: Pre-op visit HPI: 54 year old female with right groin bulge for about 2 months that has caused some discomfort. Diagnosed with inguinal hernia Elected for above surgery REVIEW OF SYSTEMS: PAIN ASSESSMENT: General: No weight loss, malaise or fevers. Neuro: Negative for TIA's Seizures + trigeminal neurologia + narcolepsy Respiratory: No history of current cough or dyspnea, or pneumonia in the past 6 weeks. No history of respiratory/pulmonary symptoms or problems. Cardiovascular: Negative for CAD, Chest Pain, DVT/PE + POTS + HLD GI: No history of GI symptoms or problems. No history of esophageal varices, recent ascites, or ETOH greater than 2 drinks per day. : No history of dysuria, frequency or incontinence,, stones or chronic kidney disease INSTITUTIONAL COMMODITY ANALYST: Negative for abnormal vaginal bleeding, abnormal vaginal discharge. : Denies, No LMP recorded. Patient has had a hysterectomy. Endocrine: NO DM + adrenal insuffiencey + hypothyroid Hematology: No history of bleeding or clotting disorder. Pt is not taking anti- coagulation or platelet medications. No history of hematological symptoms or problems. Oncology: No history of CA metastasis, chemo within 30 days, or radiotherapy within 90 days. Has not lost 10% of body wt in 6 months. No history of oncological symptoms or problems. Psych: Anxiety Musculoskeletal: Back pain and Joint pain Skin: Negative for lesions, rash and itching. 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 Intractable Chronic Migraine Without Aura and Without Status Migrainosus Conductive Hearing Loss, Bilateral Tinnitus, Bilateral Cholesteatoma, Middle Ear, Left Pots (Postural Orthostatic Tachycardia Syndrome) Supraventricular Tachycardia (Hcc) Right Inguinal Hernia History of Diverticulitis Covid Immunization Dates Overdue - Covid-19 Vaccine ( season) Overdue since 07/19/2023 11/23/2022 Imm Admin: COVID-19 vaccine, age 12+ yr, bivalent (MODERNA) 07/19/2021 Imm Admin: COVID-19 original vaccine, full dose, monovalent (MODERNA) 02/16/2021 Imm Admin: COVID-19 original vaccine, full dose, monovalent (MODERNA) 01/19/2021 Imm Admin: COVID-19 original vaccine, full dose, monovalent (MODERNA) PAST MEDICAL HISTORY No date: Dyslipidemia No date: Fracture No date: Hearing difficulty Comment: bilateral bone achored hearing aids - implants No date: Hyperglycemia No date: Hypothyroidism No date: Migraine No date: Narcolepsy Comment: Mild No date: Osteopenia No date: PMH - PAST MEDICAL HISTORY OF Comment: Thyroid problems No date: PMH - PAST MEDICAL HISTORY OF Comment: rt. rotator cuff No date: POTS (postural orthostatic tachycardia syndrome) No date: Radiculopathy Comment: lower, right moderate, left mild No date: Sleep apnea No date: Trigeminal neuralgia Comment: Left PAST SURGICAL HISTORY 06/2017: ABDOMINOPLASTY UMBILICAL TRANSPOSITION AND FASCIAL No date: LIG/TRNSXJ FLP TUBE ABDL/VAG APPR UNI/BI No date: PAST SURGICAL HISTORY OF Comment: Ear surgery tubes No date: PAST SURGICAL HISTORY OF Comment: deviated septum 2005: PAST SURGICAL HISTORY OF Comment: hysterectomy, vaginal taping No date: PAST SURGICAL HISTORY OF Comment: epideral back injections No date: PAST SURGICAL HISTORY OF Comment: Rt. rotator cuff repair 06/25/2011: PAST SURGICAL HISTORY OF Comment: IMPLANT OSSEOINTEGRATED IMPLANT TEMPORAL BONE W/ PERC ATTACH TO STIMULATOR W/O MASTOIDECTOMY 2013: PAST SURGICAL HISTORY OF Comment: right rotator cuff repair 2006: PAST SURGICAL HISTORY OF Comment: ovaries and fallopian tubes removed 11/2014: PAST SURGICAL HISTORY OF Comment: Interstim No date: ROTATOR CUFF REPAIR; Left No date: TONSILLECTOMY & ADENOIDECTOMY AGE 14/> FAMILY HISTORY Problem Relation Age of Onset Heart Mother TIA Heart Father COPD Father Headache Sister Asthma Brother Asthma Daughter Cancer Son hodgkins lymphoma Asthma Son Headache Other niece Difficulty with anesthesia No Family History Social History Tobacco Use Smoking status: Former Current packs/day: 0.00 Average packs/day: 1 pack/day for 18.0 years (18.0 ttl pk-yrs) Types: Cigarettes Start date: 09/27/1976 Quit date: 09/27/1994 Years since quittin.8 Smokeless tobacco: Never Vaping Use Vaping status: Never Used Substance Use Topics Alcohol use: Not Currently Drug use: No Comment: denies tx for drug/alcohol abuse in the past. Prior to Admission medications as of 07/09/241814 Medication Sig Last Dose Taking amoxicillin-clavulanate potassium (AUGMENTIN) 875-125 mg per tablet Take 1 tablet by mouth two times a day. Yes lisdexamfetamine (VYVANSE) 50 mg capsule Take 1 capsule by mouth once daily for 30 days. Yes Milnacipran (SAVELLA) 12.5 mg tab Take 12.5 mg by mouth once daily. Yes XYWAV 0.5 gram/mL soln oral liquid Take 9 mL by mouth at bedtime and 4 hours after. Yes ondansetron (ZOFRAN) 8 mg tablet Take by mouth three times a day as needed. Yes levothyroxine (SYNTHROID) 50 mcg tablet TAKE 1 TABLET BY MOUTH SATURDAY THROUGH SATURDAY. SKIP SATURDAY. Yes dexAMETHasone sodium phosphate (DECADRON) 4 mg/mL injection INJECT 1ML (4MG) INTRAMUSCULARLY EVERY 6 HOURS NEEDED FOR ADRENAL STRESS, USE WHEN VOMITING OR DIARRHEA PREVENTS USE OF THE ORAL DOSE. Yes desmopressin acetate (DDAVP) 0.1 mg tablet Take 0.1 mg by mouth three times daily. Yes liothyronine (CYTOMEL) 5 mcg tablet Take 5 mcg by mouth twice daily. Yes carBAMazepine (TEGRETOL) 200 mg tablet Take 2 tablets by mouth three times daily. Yes ezetimibe (ZETIA) 10 mg tablet Take 10 mg by mouth every morning. Yes REPATHA SURECLICK 140 mg/mL pen injector INJECT 140 MG UNDER THE SKIN EVERY 2 WEEKS Yes hydrOXYzine HCl (ATARAX) 25 mg tablet Take 25 mg by mouth as needed. Yes omeprazole (PRILOSEC) 40 mg capsule Take 40 mg by mouth as needed. Yes SUMAtriptan (IMITREX) 100 mg tablet Take 100 mg by mouth. Yes esterified estrogens-methylTESTOSTERone (ESTRATEST) 1.25-2.5 mg per tablet Take 1 tablet by mouth once daily. Yes tiZANidine (ZANAFLEX) 4 mg tablet Take 4 mg by mouth as needed. Yes lisdexamfetamine (VYVANSE) 50 mg capsule Take 1 capsule by mouth once daily for 30 days. Patient should start on August 08, 2024. lisdexamfetamine (VYVANSE) 50 mg capsule Take 1 capsule by mouth once daily for 30 days. Patient should start on September 07, 2024. keTORolac (TORADOL) 60 mg/2 mL soln INJECT 2ML INTRAMUSCULARLY ONE TIME ONLY FOR 1 DOSE No medication comments found. ALLERGIES Allergen Reactions Biaxin [Clarithromy* GI Upset Sutures Rash, Hives, Swelling, Itching Specifically, cat gut sutures Cymbalta [Duloxetin* Swelling Severe abdominal pain Demerol [Meperidine* Vomiting Indomethacin Swelling Had 4+ edema in legs and arms the day after taking a new prescription. Morphine Vomiting Naproxen GI Upset Penicillins Rash, Hives Patient can tolerate Augmentin Vancomycin GI Upset Versed [Midazolam H* Vomiting Z Pack [Azithromyci* Rash, GI Upset Objective PHYSICAL EXAM: VITALS: Resp 18 Ht 5' .5 (1.54m) Wt 125 lb (56.7kg) BMI 24.00 kg/(m^2). VIDEO EXAM: (if completed, performed via video enabled technology) GENERAL: alert and appropriate, in no distress SKIN: no rash noted EYES: no injection and visual acuity is grossly normal OROPHARYNX: moist mucus membranes NECK: full ROM, no cervical LNs noted RESPIRATORY: breathing non-labored CHEST: equal chest rise with normal respiratory effort HEART: 80 bpm palpated by patient- no irregularity, no edema or JVD ABDOMEN: soft and non-tender NEUROLOGIC: no obvious deficit Diagnostic tests reviewed for today's visit: Recent Results (from the past 8760 hour(s)) ECG COMPLETE Collection Time: 12/16/23 5:24 PM Result Value Ventricular Rate 82 Atrial Rate 82 P-R Interval 126 QRS Duration 82 QT Interval 370 QTC Calculation (Bazett) 432 Calculated P Callery 65 Calculated R Callery 34 Calculated T Callery 30 Impression NORMAL SINUS RHYTHM NORMAL ECG Confirmed by MD CLAUDIA, [facility] ([id number]) on 12/31/2023 2:59:40 PM Instructions Given to Patient: Instructions located in the after visit summary. Patient given verbal and written preop instructions and voices comprehension and compliance. SIGNATURE: Sania Bourne APRN.CNP PATIENT NAME: Pao Lion DATE: 07/16/2024 TIME: [facility] Instructions* Patient Instructions* Sania Bourne APRN.CNP - 07/16/2024 3:06 PM EDT PATIENT PREOPERATIVE INSTRUCTIONS Cristina Green DO scheduled you for your procedure at this surgery center: [facility]: [phone] --[id number] [place] [address]. Please read below carefully for your personalized instructions. Arrival Time for Surgery: - The Surgery Center or hospital where you are having surgery will call the afternoon before surgery (or Saturday for Saturday surgery) with a scheduled arrival time. - If you have not heard by 4 pm, please contact the surgery center above. Please be aware that emergency situations arise, which may delay or change your surgical time. If this happens, we will notify you as soon as possible and regret any inconvenience. Dietary Restrictions: - No solid food after midnight. - You may have 12 ounces of clear liquids (water, clear juices such as apple juice or gatorade, carbonated beverages, clear tea, black coffee, jello) until 2 hours before scheduled arrival at facility. No milk or cream No pulp juices Medications: Unless instructed differently below, stay on all of your medications until your surgery. Approved medications to take the morning of surgery with a sip of water: Levothyroxine, Liothyronine, Desmopressin, Zetia If you start any new medications after today's visit, please contact the surgeon's office. Blood Thinning Medications: - Stop NSAIDS (Ibuprofen, Advil, Aleve, Motrin, Celebrex, Mobic, etc.) 7 days before surgery, as directed by your surgeon. - Stop Aspirin 7 days before surgery, as directed by your surgeon. - Stop Vitamin E, ALL multi-vitamins, herbals and dietary supplements 7 days before surgery. - You may take Tylenol (Acetaminophen) or any of your pain medications that do not contain aspirin or NSAIDS as needed. Important Reminders: - If you use CPAP/BIPAP, bring the machine with you to the surgery center. - If you are prescribed inhalers for breathing, continue using them. - Candy, mints, and tobacco products are NOT permitted the morning of surgery. - Hearing aids, dentures and glasses may be worn the morning of surgery. - NO jewelry, body piercings, makeup, hairpins or contacts are to be worn the day of surgery. If you develop symptoms such as a fever, cold, or flu, or have other changes to your health within TWO DAYS of scheduled surgery or the morning of surgery, please contact the surgery center above. Personal Belongings: -Please have photo ID and insurance cards. -If you do not have a copy of advance directives on file with us, please bring a copy with you on the day of surgery. - Leave ALL valuables and money at home or with family members. For Outpatient Procedures: - YOU MUST HAVE A RESPONSIBLE MANAGER PROGRAMS TAKE YOU HOME. A NUCLEAR MEDICINE OFFICER OR OWNER ORAL SURGEON CANNOT BE MADE A RESPONSIBLE MANAGER PROGRAMS. - We recommend that a responsible person stays with you overnight to take care of you. - You cannot stay in a hotel alone after outpatient surgery. You will not be permitted to have yoursurgery, if you do not have someone to take care of you. If you already have an Advance Directive, please fax a copy to [phone] or email to for it to be added to your chart. If you do not have an Advance Directive, you can find the appropriate form and more information at [email or web address]. We recommend that youcomplete the Advance Directive form found on the website and bring it with you the day of your surgery. It can be witnessed and scanned into your chart that day. documented in this encounterM[facility]08-22-2024 Instructions* Patient Instructions* Dariana Stockton APRN.LEAD FABRICATOR - 07/09/2024 6:22 PM EDT Patient Instructions: Narcolepsy: with Cataplexy Medication(s) as ordered. Xywav 0.5 gm/ml 4.5 gm twice nightly (540 ml/30d), last filled on 06/08/24. Lisdexamfetamine 50 mg qam (#10/10d), last filled 06/18/24. Dispense on or after 07/09/24, 08/08/24, 09/07/24. Follow up before 10/07/24. Scripts transmitted. In accordance with department regulations, in order for controlled substances to be prescribed, youmust be evaluated by a Sleep physician at least once yearly, and must attend at least one in-personvisit per year. Your medications require that you follow-up at least every 3 months for refills. Other requirements for use of controlled substances may include urine tox screenings and EKGs/cardiac evaluations. Last utox: 12/16/23 Urine Tox (+ Amphetamines) results as expected. Last EK12/16/23 NSR, NL ECG Last Sleep physician visit: 01/06/24 Dr Florecita Castellanos. Last in-person visit: 01/06/24 Dr. Drew Catsellanos ALL SCHEDULED MED REGULATIONS MET IN 2023. Schedule 3 month follow-up visit with YOLANDA or Sleep MD (virtual or in-person) - she is already scheduled out several follow up visits. Follow up as discussed. Sleep YOLANDA appt 10/06/[address] Castellanos appt 01/13/25 already scheduled. Dariana Stockton APRN.[facility] Following up for your Disorder: Symptoms of narcolepsy, idiopathic hypersomnia and other central nervous system (INSPECTOR MULTIFOCAL LENS) hypersomnia disorders can be effectively treated with several types of medications, many of which require frequent monitoring by a healthcare provider. At [facility], we want to ensurethat your symptoms are well managed so that you can enjoy the best quality of life possible. Several medications are approved by the Food and Drug Administration (FDA) for the treatment of narcolepsy and one medication is approved for the treatment of idiopathic hypersomnia. Therefore, it iscommon practice to use some alerting medications off-label which means that insurance coverage is variable. Most are controlled substances, meaning that their use is monitored closely by pharmacies and governmental agencies. Some have interactions with other commonly used medications, including oral contraceptives and antidepressants. Regular follow- up with your sleep provider is required. If youare taking medications for hypersomnia, contact your sleep provider before starting other prescribed medications. Always keep your medication in a safe place, out of reach of children, teens and pets. A blood pressure measurement is required at every follow-up visit. You may set up a compatible blood pressure monitoring device that allows you to submit your readings from home to your healthcare provider through My Chart. Ask your provider for more information. Medications: There are three main classes of medication approved for the treatment of excessive sleepiness associated with narcolepsy: stimulant medications, non- stimulant wake-promoting medications and sodium/lower sodium oxybates. Sodium/lower sodium oxybates and pitolisant, a newer wake promoting agent, are a lso approved for cataplexy in people with narcolepsy. Stimulant Medications: Stimulants include methylphenidate (Ritalin, Concerta, Metadate, Daytrana, Quillivant, Quillichew),dexmethylphenidate (Focalin), and amphetamine derivatives (Adderall, Desoxyn, Methadine, Vyvanse, Zendeti). Due to side effects and the potential for dependence, follow-up with your sleep provider is required every 3 months including one in-person visit per year. This includes an annual visit with your sleep physician and quarterly visits with a sleep advanced practice provider as well as periodic urine and EKG monitoring. Non-stimulant Wake-promoting Medications: Non-stimulant wake-promoting medications include modafinil (Provigil) and armodafinil (Nuvigil) andtwo new agents FDA-approved in 2019, solriamfetol (Sunosi) and pitolisant (Wakix). Modafinil, armodafinil and solriamfetol are also approved for excessive sleepiness in people with obstructive sleep apnea on CPAP, and modafinil and armodafinil for excessive sleepiness in shift work sleep disorder. For more information about the newest treatments, see www.sunosi.com and www.wakix.com. Pitolisant requires a special prescription referral form sent by your sleep provider to a specialty pharmacy. While side effects may also occur with these agents, the risks are less than with stimulant medications. and follow-up with your sleep provider is required every 6 months including one in-person visit per year. This includes an annual visit with your sleep physician and a mid-year visit with a sleep advanced practice provider. Periodic urine and EKG monitoring may be recommended depended on the typeof medication being prescribed. Oxybate Salts: Sodium oxybate (Xyrem) and lower-sodium oxybate (Xywav) are FDA-approved medications for excessive sleepiness and cataplexy in narcolepsy. Xywav was FDA- approved in 2020 and contains over 90% less sodium than Xyrem with the same degree of effectiveness. Both Xyrem and Xywav are liquids taken at bedtime and again during the night. Xyrem/Xywav are salts of gamma hydroxybutyrate (GHB), an illegal drug with serious side effects. While Xyrem/Xywav are not GHB, they should not be taken with other CNSdepressants including opioid analgesics, benzodiazepines, sedating antidepressants, antipsychotics,sedating anti-seizure medicines, general anesthetics, muscle relaxants, alcohol or street drugs dueto the risk of serious medical problems. When taken as prescribed, oxybate salts have lower potential for physical or psychological dependence than stimulant medications. Prescriptions are filed by [facility] through the Xyrem/Xywav REMS Program. For more information, see [email or web address] or [email or web address], respectively. Follow-up with your sleep provider is required every 6 months including one in-person visit per year. This includes an annual visit with your sleep physician and a mid-year visit with a sleep advanced practice provider. Periodic urine and EKG monitoring may be recommended. If you reside outside the state of [place], please discuss follow-up visit and prescription recommendations with your sleep physician as controlled substance regulations vary by state. If you miss your regularly scheduled appointments, you will need to make an appointment with a sleep advanced practice provider before refills will be approved. Non-medication Treatments: Non-pharmalogical treatments should be combined with medications to improve daytime sleepiness in narcolepsy, idiopathic hypersomnia, and other forms of hypersomnia. These including daytime naps, consistent sleep schedules, strategic caffeine, good sleep hygiene, avoidance of alcohol, sedating medications, recreational drugs and sleep deprivation and treatment of co-existing sleep disorders. Social support is important in managing the psychological difficulties associated with hypersomnia disorders and some people require educational and/or work accommodations. Cognitive behavioral therapy (CBT) with an experienced psychologist is helpful in managing psychosocial challenges and maintaining good sleep habits. Scheduling Information: - Any appointments can be scheduled through the central scheduling system for the [facility] at [phone]. - [facility] offers direct scheduling for patients to schedule appointments. -Virtual visits are also available. If not covered by your insurance, there is a 35% discount. Please contact your insurance to determine coverage. For refills: - If you are receiving a controlled substance, you will need to see a sleep physician at least onceper year. - In [place] ( Medications then Request Renewals ) - Call the office at [phone], option #5 for provider questions. For any other questions: - Contact your visit provider via [employer] ( Inbox & Sent Messages then Send a message ) for thequickest response. - Call the office at [phone], option #5 for provider questions. [facility] website: [email or web address] documented in this encounterMarietta [facility]08-22-[facility]24 History of Present illness Narrative* Dariana Stockton APRN.CNP - 07/09/2024 6:00 PM EDT Images from the original note were not included. [facility] Virtual Visit Follow Up/ Established Patient Visit PATIENT NAME: Pao Lion [facility] Rules (O.A.C. ): This visit was conducted as a Virtual Visit, with patient's permission, via Zoom. It required patient-provider interaction for the medical decision making as documented below. 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 The patient's identity and physical location were verified at the time of this visit. Either the patient or their legal retail wireless sales representative has been informed of the risks and benefits of -- and alternatives to -- treatment through a remote evaluation and consents to proceed with the evaluation remotely. Virtual visits are a convenient way for us to meet, but there are some situations in which an in-person evaluation may be required at a later time. I want to check in to confirm your consent to be seen virtually today. Consent given: Yes <Assessment/Plan from LAST VISIT> Date of last visit : 04/09/24 Diagnosis: Narcolepsy with cataplexy (primary encounter diagnosis) Long-term current use of stimulant Narcolepsy without cataplexy Overview: Pao Lion is a 53 year old year old female with a PMH as noted who presents via Virtual Visitfor Narcolepsy with Cataplexy. - Doing fairly well with NT1. - Cataplexy (controlled on Xywav). - Hypnagogic hallucinations, sleep paralysis ,dream enactment behaviors, and drowsy driving currently controled. - Xywav 0.5 gm/ml 45 gm twice nightly (540 ml/30d), last filled on 03/05/24. - Lisdexamfetamine 50 mg qam (#30/30d), last filled 03/03/24. - Denies side effects or adverse reactions. - Compliant and benefiting from treatment. Plan: Narcolepsy: with Cataplexy Medication(s) as ordered. Xywav 0.5 gm/ml 45 gm twice nightly (540 ml/30d), last filled on 03/05/24. Dispense on or after 04/09/24, 05/09/24, 06/08/24. Follow up before 07/08/24. Scripts transmitted. Lisdexamfetamine 50 mg qam (#30/30d), last filled 03/03/24. In accordance with department regulations, in order for controlled substances to be prescribed, youmust be evaluated by a Sleep physician at least once yearly, and must attend at least one in-personvisit per year. Your medications require that you follow-up at least every 3 months for refills. Other requirements for use of controlled substances may include urine tox screenings and EKGs/cardiac evaluations. Last utox: 12/16/23 Urine Tox (+ Amphetamines) results as expected. Last EK12/16/23 NSR, NL ECG Last Sleep physician visit: 01/06/24 Dr Florecita Castellanos. Last in-person visit: 01/06/24 Dr. Drew Castellanos ALL SCHEDULED MED REGULATIONS MET IN 2023. Schedule 3 month follow-up visit with YOLANDA or Sleep MD (virtual or in-person) - she is already scheduled out several follow up visits. <End Assessment/Plan from last visit> CURRENT VISIT: 07/09/2024 Interval history: Dong pretty good. I'm getting a little bit more tired earlier. Taking more short naps. I'm not going to complain. Worse than prior visit. More tired in the evening. Xywav has really helped her. No RLS for a very long time. She eats a lot of protein. She eats fairly healthy. Follow up visit for Narcolepsy with Cataplexy. Relevant study results reviewed as noted below, if applicable. HYPERSOMNIA : Narcolepsy with Cataplexy Naps: Yes. Number of naps per day: Daily. Less than 5 -15 minutes. Wakes back up. Cataplexy: None for a long time. Tries to always try to control stress. Hypnagogic hallucinations: None for a very long time. Dream enactment behaviors: No Sleep related injuries: No Sleep paralysis: None for a very long time. RLS: None for a very long time. Drowsy driving: No EDS: 15 Current medications: OARRS checked: Yes Name and dose: Vyvanse 50 mg (#10/10d), last filled 06/18/24. Time taken: upon awakening ~ 0700 -0800. Name and dose: Xywav 4.5 gms twice a night (#540/30d), last shipped 06/08/24. Time taken: midnight, [id number] [facility] website checked and validated. All prescriptions have been APPROPRIATELY filled. No suspiciousactivity was identified. 07/09/2024 by Dariana Stockton APRN.LEAD FABRICATOR SLEEP HYGIENE QUESTIONS: Bedtime : Midnight. Wake up Time : 0700 -0800 Time it takes to fall sleep : Quick ~ < 20 minutes Activities in bed before falling asleep : None Number of times patient wakes up per night : 1 Reason (s) why patient wakes up during the night : Xywav ~ [id number] Estimated total sleep time ( in a 24 hour period of time) : 7-8 Naps : Yes, see above. OTHER RELEVANT LABS AND STUDIES: Hemoglobin Date Value Ref Range Status 02/16/2022 14.8 11.5 - 15.5 g/dL Final 06/23/2020 14.8 11.5 - 15.5 g/dL Final No results found for: FE , TIBC No results found. PATIENT-ENTERED QUESTIONNAIRE SLEEP SCORES 07/08/2024 Sleep Questions Reason for visit: Excessive daytime sleepiness Narcolepsy Accidents or near accidents due to drowsy drivin Multiple values from one day are sorted in reverse-chronological order 10/01/2023 04/02/2024 07/08/2024 [place] Sleepiness Scale Score 12 (Excessive daytime sleepiness present) 13 (Excessive daytime sleepiness present) 15 (Excessive daytime sleepiness present) 10/01/2023 04/02/2024 07/08/2024 PROMIS CAT Sleep Disturbance PROMIS Sleep Disturbance T-Score 46 (within normal limits) 44 (within normal limits) 45 (within normal limits) PROMIS Sleep Disturbance Percentile 66 73 69 06/27/2020 Insomnia Severity Index Score 28 06/27/2020 07/13/2022 Restless Leg Syndrome Score 16 (Moderate symptoms) 16 (Moderate symptoms) 10/01/2023 04/02/2024 07/08/2024 PHQ-9 Score 6 5 5 3 Multiple values from one day are sorted in reverse-chronological order 10/01/2023 04/02/2024 07/08/2024 PROMIS Global Health - (T-Scores - the mean of general population = 50. Five points is a clinicallymeaningful difference.) Physical T-Score 42.3 39.8 39.8 37.4 Mental T-Score 41.1 45.8 45.8 41.1 Multiple values from one day are sorted in reverse-chronological order CURRENT MEDICATIONS: lisdexamfetamine (VYVANSE) 50 mg capsule Take 1 capsule by mouth once daily for 30 days. [START ON 08/08/2024] lisdexamfetamine (VYVANSE) 50 mg capsule Take 1 capsule by mouth once daily for 30 days. Patient should start on August 08, 2024. [START ON 09/07/2024] lisdexamfetamine (VYVANSE) 50 mg capsule Take 1 capsule by mouth once daily for 30 days. Patient should start on September 07, 2024. Milnacipran (SAVELLA) 12.5 mg tab Take 12.5 mg by mouth once daily. XYWAV 0.5 gram/mL soln oral liquid Take 9 mL by mouth at bedtime and 4 hours after. keTORolac (TORADOL) 60 mg/2 mL soln INJECT 2ML INTRAMUSCULARLY ONE TIME ONLY FOR 1 DOSE ondansetron (ZOFRAN) 8 mg tablet Take by mouth three times a day as needed. levothyroxine (SYNTHROID) 50 mcg tablet TAKE 1 TABLET BY MOUTH SATURDAY THROUGH SATURDAY. SKIP SATURDAY. dexAMETHasone sodium phosphate (DECADRON) 4 mg/mL injection INJECT 1ML (4MG) INTRAMUSCULARLY EVERY 6 HOURS NEEDED FOR ADRENAL STRESS, USE WHEN VOMITING OR DIARRHEA PREVENTS USE OF THE ORAL DOSE. desmopressin acetate (DDAVP) 0.1 mg tablet Take 0.1 mg by mouth three times daily. liothyronine (CYTOMEL) 5 mcg tablet Take 5 mcg by mouth twice daily. carBAMazepine (TEGRETOL) 200 mg tablet Take 2 tablets by mouth three times daily. ezetimibe (ZETIA) 10 mg tablet Take 10 mg by mouth every morning. REPATHA SURECLICK 140 mg/mL pen injector INJECT 140 MG UNDER THE SKIN EVERY 2 WEEKS hydrOXYzine HCl (ATARAX) 25 mg tablet Take 25 mg by mouth as needed. omeprazole (PRILOSEC) 40 mg capsule Take 40 mg by mouth as needed. SUMAtriptan (IMITREX) 100 mg tablet Take 100 mg by mouth. esterified estrogens-methylTESTOSTERone (ESTRATEST) 1.25-2.5 mg per tablet Take 1 tablet by mouth once daily. tiZANidine (ZANAFLEX) 4 mg tablet Take 4 mg by mouth as needed. Review of Systems Constitutional: Positive for fatigue. Respiratory: Negative. Cardiovascular: Negative. Genitourinary: Negative. Psychiatric: Negative. VITAL SIGNS: Deferred due to virtual visit. PHYSICAL EXAMINATION: Constitutional: Appearance: Well groomed. Well nourished FEMALE. Very pleasant. Neurological: General: No focal deficit present. Mental Status: A&OX3 (person, place, and time). Speech: Clear, projects well. Memory: Intact, responses appropriate. Mood and Affect: Mood normal. Behavior: Behavior normal Assessment & Plan Diagnosis: Narcolepsy with cataplexy (primary encounter diagnosis) Long-term current use of stimulant Narcolepsy without cataplexy Overview: Pao Lion is a 54 year old year old female with a PMH as noted who presents via Virtual Visitfor Narcolepsy with Cataplexy. Dong pretty good. I'm getting a little bit more tired earlier. Taking more short naps. I'm not going to complain. Worse than prior visit. More tired in the evening. Xywav has really helped her. No RLS for a very long time. She eats a lot of protein. She eats fairly healthy. - Doing fairly well with NT1. - She is noticing a bit more tiredness. Taking more short naps. Thinking she might like to increasethe dosage of the Vyvanse. She will continue to monitor. I will message Dr. Castellanos about possible increase in Vyvanse dosage at next visit in September 2024. - Cataplexy (controlled on Xywav). - Hypnagogic hallucinations, sleep paralysis ,dream enactment behaviors, and drowsy driving currently controlled. - No RLS on Xywav. - Xywav 0.5 gm/ml 4.5 gm twice nightly (540 ml/30d), last filled on 06/08/24. - Lisdexamfetamine 50 mg qam (#10/10d), last filled 06/18/24. - Denies side effects or adverse reactions. - Compliant and benefiting from treatment. Plan: Narcolepsy: with Cataplexy Medication(s) as ordered. Xywav 0.5 gm/ml 4.5 gm twice nightly (540 ml/30d), last filled on 06/08/24. Lisdexamfetamine 50 mg qam (#10/10d), last filled 06/18/24. Dispense on or after 07/09/24, 08/08/24, 09/07/24. Follow up before 10/07/24. Scripts transmitted. In accordance with department regulations, in order for controlled substances to be prescribed, youmust be evaluated by a Sleep physician at least once yearly, and must attend at least one in-personvisit per year. Your medications require that you follow-up at least every 3 months for refills. Other requirements for use of controlled substances may include urine tox screenings and EKGs/cardiac evaluations. Last utox: 12/16/23 Urine Tox (+ Amphetamines) results as expected. Last EK12/16/23 NSR, NL ECG Last Sleep physician visit: 01/06/24 Dr Florecita Castellanos. Last in-person visit: 01/06/24 Dr. Drew Castellanos ALL SCHEDULED MED REGULATIONS MET IN 2023. Schedule 3 month follow-up visit with YOLANDA or Sleep MD (virtual or in-person) - she is already scheduled out several follow up visits. Follow up as discussed. Sleep YOLANDA appt 10/06/[address] Castellanos appt 01/13/25 already scheduled. I spent a total of 37 minutes. This was a follow up patient to me on the date of the service which included preparing to see the patient, [id number] patient care, completing clinical documentation,counseling and educating the patient/family/caregiver and ordering medications, tests, or procedures. Dariana Stockton APRN.LEAD FABRICATOR July 09, 2024 8:21 AM The following approved medication requests have been transmitted electronically. Requested Prescriptions Signed Prescriptions Disp Refills lisdexamfetamine (VYVANSE) 50 mg capsule 30 capsule 0 Sig: Take 1 capsule by mouth once daily for 30 days. lisdexamfetamine (VYVANSE) 50 mg capsule 30 capsule 0 Sig: Take 1 capsule by mouth once daily for 30 days. Patient should start on August 08, 2024. lisdexamfetamine (VYVANSE) 50 mg capsule 30 capsule 0 Sig: Take 1 capsule by mouth once daily for 30 days. Patient should start on September 07, 2024. Dariana Stockton APRN.[place] PDMP website checked and validated. All prescriptions have been APPROPRIATELY filled. No suspiciousactivity was identified. 07/09/2024 by Dariana Stockton APRN.CNP Activity Duration Pre-charting 16 minutes Chart accessed 10 minutes Current session 10 minutes Total time: 37 minutes documented in this encounterMarietta [facility] History and physical note * Cristina Green - 07/03/2024 3:38 PM EDT History and Physical General Surgery July 03, 2024 3:38 PM CC: right groin hernia HPI: This is a 54 year old female with right groin bulge for about 2 months, it was really stickingout. She had a sense that she had it in the months prior to that, but wasn't sure. Had hemorrhoid artery ligation procedure in May Had abdominoplasty, umbilical hernia repair at the same time. PAST MEDICAL HISTORY No date: Dyslipidemia No date: Fracture No date: Hearing difficulty Comment: bilateral bone achored hearing aids - implants No date: Hyperglycemia No date: Hypothyroidism No date: Migraine No date: Narcolepsy Comment: Mild No date: Osteopenia No date: PMH - PAST MEDICAL HISTORY OF Comment: Thyroid problems No date: PMH - PAST MEDICAL HISTORY OF Comment: rt. rotator cuff No date: POTS (postural orthostatic tachycardia syndrome) No date: Radiculopathy Comment: lower, right moderate, left mild No date: Sleep apnea No date: Trigeminal neuralgia Comment: Left PAST SURGICAL HISTORY 06/2017: ABDOMINOPLASTY UMBILICAL TRANSPOSITION AND FASCIAL No date: LIG/TRNSXJ FLP TUBE ABDL/VAG APPR UNI/BI No date: PAST SURGICAL HISTORY OF Comment: Ear surgery tubes No date: PAST SURGICAL HISTORY OF Comment: deviated septum 2005: PAST SURGICAL HISTORY OF Comment: hysterectomy, vaginal taping No date: PAST SURGICAL HISTORY OF Comment: epideral back injections No date: PAST SURGICAL HISTORY OF Comment: Rt. rotator cuff repair 06/25/2011: PAST SURGICAL HISTORY OF Comment: IMPLANT OSSEOINTEGRATED IMPLANT TEMPORAL BONE W/ PERC ATTACH TO STIMULATOR W/O MASTOIDECTOMY 2013: PAST SURGICAL HISTORY OF Comment: right rotator cuff repair 2006: PAST SURGICAL HISTORY OF Comment: ovaries and fallopian tubes removed 11/2014: PAST SURGICAL HISTORY OF Comment: Interstim No date: ROTATOR CUFF REPAIR; Left No date: TONSILLECTOMY & ADENOIDECTOMY AGE 14/> ALLERGIES Allergen Reactions Biaxin [Clarithromy* GI Upset Sutures Rash, Hives, Swelling, Itching Specifically, cat gut sutures Cymbalta [Duloxetin* Swelling Severe abdominal pain Demerol [Meperidine* Vomiting Indomethacin Swelling Had 4+ edema in legs and arms the day after taking a new prescription. Morphine Vomiting Naproxen GI Upset Penicillins Rash, Hives Patient can tolerate Augmentin Vancomycin GI Upset Versed [Midazolam H* Vomiting Z Pack [Azithromyci* Rash, GI Upset ofloxacin (FLOXIN) 0.3 % otic solution Use 3 Drops in the ears two times a day for 14 days. May substitute ofloxacin ophthalamic pending availability Milnacipran (SAVELLA) 12.5 mg tab Take 12.5 mg by mouth once daily. lisdexamfetamine (VYVANSE) 50 mg capsule Take 1 capsule by mouth once daily for 30 days. XYWAV 0.5 gram/mL soln oral liquid Take 9 mL by mouth at bedtime and 4 hours after. lisdexamfetamine (VYVANSE) 50 mg capsule Take 1 capsule by mouth once daily for 30 days. Do not start before May 09, 2024. lisdexamfetamine (VYVANSE) 50 mg capsule Take 1 capsule by mouth once daily for 30 days. Do not start before June 08, 2024. keTORolac (TORADOL) 60 mg/2 mL soln INJECT 2ML INTRAMUSCULARLY ONE TIME ONLY FOR 1 DOSE ondansetron (ZOFRAN) 8 mg tablet Take by mouth three times a day as needed. levothyroxine (SYNTHROID) 50 mcg tablet TAKE 1 TABLET BY MOUTH SATURDAY THROUGH SATURDAY. SKIP SATURDAY. dexAMETHasone sodium phosphate (DECADRON) 4 mg/mL injection INJECT 1ML (4MG) INTRAMUSCULARLY EVERY 6 HOURS NEEDED FOR ADRENAL STRESS, USE WHEN VOMITING OR DIARRHEA PREVENTS USE OF THE ORAL DOSE. desmopressin acetate (DDAVP) 0.1 mg tablet Take 0.1 mg by mouth three times daily. liothyronine (CYTOMEL) 5 mcg tablet Take 5 mcg by mouth twice daily. carBAMazepine (TEGRETOL) 200 mg tablet Take 2 tablets by mouth three times daily. ezetimibe (ZETIA) 10 mg tablet Take 10 mg by mouth every morning. REPATHA SURECLICK 140 mg/mL pen injector INJECT 140 MG UNDER THE SKIN EVERY 2 WEEKS hydrOXYzine HCl (ATARAX) 25 mg tablet Take 25 mg by mouth as needed. omeprazole (PRILOSEC) 40 mg capsule Take 40 mg by mouth as needed. SUMAtriptan (IMITREX) 100 mg tablet Take 100 mg by mouth. esterified estrogens-methylTESTOSTERone (ESTRATEST) 1.25-2.5 mg per tablet Take 1 tablet by mouth once daily. tiZANidine (ZANAFLEX) 4 mg tablet Take 4 mg by mouth as needed. REVIEW OF SYSTEMS GENERAL: No weight loss, malaise or fevers NECK: Negative for lumps, goiter, pain and significant neck swelling RESPIRATORY: Negative for cough, hemoptysis, wheezing, COPD, dyspnea or shortness of breath CARDIOVASCULAR: Negative for chest pain, leg swelling, hypertension, CHF or palpitations GI: No nausea, vomiting, or diarrhea : No history of dysuria, frequency or incontinence SKIN: Negative for lesions, rash, and itching NEURO: No history of headaches, syncope, paralysis, seizures or tremors PHYSICAL EXAMINATION: BP 116/84 (BP Site: Right Arm, BP Position: Sitting, BP Cuff Size: Regular Adult) Pulse 98 Wt 57.6 kg (127 lb) BMI 24.80 kg/m On exam, the patient is awake alert, oriented no distress Standing exam + RIH Supine exam no umbilical hernia, RIH again noted. LABS/IMAGING: reviewed Assessment (K40.90) Right inguinal hernia (primary encounter diagnosis) Comment: discussed options including watchful waiting and repair I have discussed the surgical options with the patient. I have discussed the potential risks of surgery including, but not limited to: anesthetic complications, allergic reactions to medications, blood clots, lung and bladder infections, heart attack, stroke and even , bleeding, abdominal infections, injury to surrounding organs with possibility ofprolonged recovery or functional impairment, ileus (delayed return of bowel function), anastomotic complications, scar tissue/adhesions and hernias I also discussed the expected outcomes of surgery with the patient. No guarantees were made or implied regarding outcomes or cure. The patient has been allowed to ask questions and all questions were answered to his or her satisfaction. Either electronic or paper consent has been signed. Plan: SURGICAL REQUEST - ELECTIVE (06/2020) (E27.40) Adrenal insufficiency (HCC) Comment: will need stress dose steroids for procedure [facility]08-16-2024 History and physical note* Cristina Green DO - 07/03/2024 3:38 PM EDT History and Physical General Surgery July 03, 2024 3:38 PM CC: right groin hernia HPI: This is a 54 year old female with right groin bulge for about 2 months, it was really stickingout. She had a sense that she had it in the months prior to that, but wasn't sure. Had hemorrhoid artery ligation procedure in May Had abdominoplasty, umbilical hernia repair at the same time. PAST MEDICAL HISTORY No date: Dyslipidemia No date: Fracture No date: Hearing difficulty Comment: bilateral bone achored hearing aids - implants No date: Hyperglycemia No date: Hypothyroidism No date: Migraine No date: Narcolepsy Comment: Mild No date: Osteopenia No date: PMH - PAST MEDICAL HISTORY OF Comment: Thyroid problems No date: PMH - PAST MEDICAL HISTORY OF Comment: rt. rotator cuff No date: POTS (postural orthostatic tachycardia syndrome) No date: Radiculopathy Comment: lower, right moderate, left mild No date: Sleep apnea No date: Trigeminal neuralgia Comment: Left PAST SURGICAL HISTORY 06/2017: ABDOMINOPLASTY UMBILICAL TRANSPOSITION AND FASCIAL No date: LIG/TRNSXJ FLP TUBE ABDL/VAG APPR UNI/BI No date: PAST SURGICAL HISTORY OF Comment: Ear surgery tubes No date: PAST SURGICAL HISTORY OF Comment: deviated septum 2005: PAST SURGICAL HISTORY OF Comment: hysterectomy, vaginal taping No date: PAST SURGICAL HISTORY OF Comment: epideral back injections No date: PAST SURGICAL HISTORY OF Comment: Rt. rotator cuff repair 06/25/2011: PAST SURGICAL HISTORY OF Comment: IMPLANT OSSEOINTEGRATED IMPLANT TEMPORAL BONE W/ PERC ATTACH TO STIMULATOR W/O MASTOIDECTOMY 2013: PAST SURGICAL HISTORY OF Comment: right rotator cuff repair 2006: PAST SURGICAL HISTORY OF Comment: ovaries and fallopian tubes removed 11/2014: PAST SURGICAL HISTORY OF Comment: Interstim No date: ROTATOR CUFF REPAIR; Left No date: TONSILLECTOMY & ADENOIDECTOMY AGE 14/> ALLERGIES Allergen Reactions Biaxin [Clarithromy* GI Upset Sutures Rash, Hives, Swelling, Itching Specifically, cat gut sutures Cymbalta [Duloxetin* Swelling Severe abdominal pain Demerol [Meperidine* Vomiting Indomethacin Swelling Had 4+ edema in legs and arms the day after taking a new prescription. Morphine Vomiting Naproxen GI Upset Penicillins Rash, Hives Patient can tolerate Augmentin Vancomycin GI Upset Versed [Midazolam H* Vomiting Z Pack [Azithromyci* Rash, GI Upset ofloxacin (FLOXIN) 0.3 % otic solution Use 3 Drops in the ears two times a day for 14 days. May substitute ofloxacin ophthalamic pending availability Milnacipran (SAVELLA) 12.5 mg tab Take 12.5 mg by mouth once daily. lisdexamfetamine (VYVANSE) 50 mg capsule Take 1 capsule by mouth once daily for 30 days. XYWAV 0.5 gram/mL soln oral liquid Take 9 mL by mouth at bedtime and 4 hours after. lisdexamfetamine (VYVANSE) 50 mg capsule Take 1 capsule by mouth once daily for 30 days. Do not start before May 09, 2024. lisdexamfetamine (VYVANSE) 50 mg capsule Take 1 capsule by mouth once daily for 30 days. Do not start before June 08, 2024. keTORolac (TORADOL) 60 mg/2 mL soln INJECT 2ML INTRAMUSCULARLY ONE TIME ONLY FOR 1 DOSE ondansetron (ZOFRAN) 8 mg tablet Take by mouth three times a day as needed. levothyroxine (SYNTHROID) 50 mcg tablet TAKE 1 TABLET BY MOUTH SATURDAY THROUGH SATURDAY. SKIP SATURDAY. dexAMETHasone sodium phosphate (DECADRON) 4 mg/mL injection INJECT 1ML (4MG) INTRAMUSCULARLY EVERY 6 HOURS NEEDED FOR ADRENAL STRESS, USE WHEN VOMITING OR DIARRHEA PREVENTS USE OF THE ORAL DOSE. desmopressin acetate (DDAVP) 0.1 mg tablet Take 0.1 mg by mouth three times daily. liothyronine (CYTOMEL) 5 mcg tablet Take 5 mcg by mouth twice daily. carBAMazepine (TEGRETOL) 200 mg tablet Take 2 tablets by mouth three times daily. ezetimibe (ZETIA) 10 mg tablet Take 10 mg by mouth every morning. REPATHA SURECLICK 140 mg/mL pen injector INJECT 140 MG UNDER THE SKIN EVERY 2 WEEKS hydrOXYzine HCl (ATARAX) 25 mg tablet Take 25 mg by mouth as needed. omeprazole (PRILOSEC) 40 mg capsule Take 40 mg by mouth as needed. SUMAtriptan (IMITREX) 100 mg tablet Take 100 mg by mouth. esterified estrogens-methylTESTOSTERone (ESTRATEST) 1.25-2.5 mg per tablet Take 1 tablet by mouth once daily. tiZANidine (ZANAFLEX) 4 mg tablet Take 4 mg by mouth as needed. REVIEW OF SYSTEMS GENERAL: No weight loss, malaise or fevers NECK: Negative for lumps, goiter, pain and significant neck swelling RESPIRATORY: Negative for cough, hemoptysis, wheezing, COPD, dyspnea or shortness of breath CARDIOVASCULAR: Negative for chest pain, leg swelling, hypertension, CHF or palpitations GI: No nausea, vomiting, or diarrhea : No history of dysuria, frequency or incontinence SKIN: Negative for lesions, rash, and itching NEURO: No history of headaches, syncope, paralysis, seizures or tremors PHYSICAL EXAMINATION: BP 116/84 (BP Site: Right Arm, BP Position: Sitting, BP Cuff Size: Regular Adult) Pulse 98 Wt 57.6 kg (127 lb) BMI 24.80 kg/m On exam, the patient is awake alert, oriented no distress Standing exam + RIH Supine exam no umbilical hernia, RIH again noted. LABS/IMAGING: reviewed Assessment (K40.90) Right inguinal hernia (primary encounter diagnosis) Comment: discussed options including watchful waiting and repair I have discussed the surgical options with the patient. I have discussed the potential risks of surgery including, but not limited to: anesthetic complications, allergic reactions to medications, blood clots, lung and bladder infections, heart attack, stroke and even , bleeding, abdominal infections, injury to surrounding organs with possibility ofprolonged recovery or functional impairment, ileus (delayed return of bowel function), anastomotic complications, scar tissue/adhesions and hernias I also discussed the expected outcomes of surgery with the patient. No guarantees were made or implied regarding outcomes or cure. The patient has been allowed to ask questions and all questions were answered to his or her satisfaction. Either electronic or paper consent has been signed. Plan: SURGICAL REQUEST - ELECTIVE (06/2020) (E27.40) Adrenal insufficiency (HCC) Comment: will need stress dose steroids for procedure [facility] History of Present illness Narrative* Palomo Davalos MD - 06/29/2024 4:02 PM EDT Images from the original note were not included. Follow-Up Onabotulinum Toxin A (BotoxTM) for Migraine Indication: Chronic Intractable Migraine Referral Expiration: 11/30/2024 Prior to the initiation of the FIRST treatment with Onabotulinum Toxin A, the patient reported the following average headache frequency over the past 3 MONTHS: Number of moderate-severe migraine days/month: 12 Number of mild migraine days/month: 13 Number of headache free days/month: 5 (120 headache-free hours) After treatment with Onabotulinum Toxin A: Number of moderate-severe migraine days/month: 4 Number of mild migraine days/month: 5 Number of headache free days/month: 21 (504 headache-free hours) Patient reduction in overall migraine days: Yes Patient reduction in moderate-severe migraine days: Yes Patient reduction of headache hours by 100 hours or more: Yes (reduction of 384 hours) Individual has obtained clinical benefit deemed significant by individual or prescriber (Y/N): Yes Patient's quality of life and ability to perform ADLs has improved (Y/N): Yes Wearing off: No The patient has been assessed for disorders which could contribute to breathing or swallowing difficulty, and there is no contraindication with PREEMPT Botox. There is no documented allergic reaction/hypersensitivity to any botulinum toxin and there is no active infection at proposed injection site. HEADACHE SCORES: 02/19/2022 05/28/2022 Headache Questions ER visits since last office visit: 0 0 Hospital stays since last office visit 0 0 Limited ADLs in the last month: 8 Days headache pain free in the last month: 22 Days per month with ALL of the following symptoms - decreased productivity, light sensitivity and nausea: 8 Initial improvement of headache after botox injection at last visit: Very much improved Very much improved PRN medication usage in the last month: 8 Patient impression of improvement since last visit: Very much improved Very much improved 02/19/2022 05/28/2022 HIT-6 HIT-6 64 (Severe impact) Incomplete 02/19/2022 MARIA ESTHER - 2/7 SCORES MARIA ESTHER-2 Score 3 MARIA ESTHER-7 Score 5 07/04/2023 10/01/2023 04/02/2024 PHQ-9 Score 1 6 5 5 BP 117/79 (BP Site: Right Arm, BP Position: Sitting, BP Cuff Size: Regular Adult) Pulse 92 Patient name: Pao Lion : 1970 ALLERGIES Allergen Reactions Biaxin [Clarithromy* GI Upset Sutures Rash, Hives, Swelling, Itching Specifically, cat gut sutures Cymbalta [Duloxetin* Swelling Severe abdominal pain Demerol [Meperidine* Vomiting Indomethacin Swelling Had 4+ edema in legs and arms the day after taking a new prescription. Morphine Vomiting Naproxen GI Upset Penicillins Rash, Hives Patient can tolerate Augmentin Vancomycin GI Upset Versed [Midazolam H* Vomiting Z Pack [Azithromyci* Rash, GI Upset UNIVERSAL PROTOCOL / SAFETY CHECKLIST Procedure: Onabotulinum toxin A for migraine Informed Consent Consent Obtained: Written [place] Protocol A moment to CARE was completed SIGN IN Personnel directly involved with the procedure wore the appropriate PPE Special Equipment: N/A Patient/Surrogate Stated/Verified: Patient name, Date of , Relevant allergies and Intended procedure TIME OUT Intended patient and procedure match the source document(s) Consent documented and matches the intended procedure No relevant labs, photos, and/or imaging studies were applicable for review. No correct side/site applicable for marking and visibility. No medications required for procedure. No fire risk assessment and interventions applicable. No implant(s) inserted. SIGN OUT No specimen collected. No instruments, equipment or retained foreign bodies applicable. Post-procedure follow-up management communicated and Plan of Care Visit completed when applicable Written Consent Obtained: Written Injection Sites Left (Units) Left (Sites) Right (Units) Right (Sites) TOTAL (Units) Used Car Make Ready Worker 5 1 5 1 10 Procerus Units: 5 Sites: 1 5 Frontalis 10 2 10 2 20 Temporalis 45 9 40 8 85 Occipitalis 15 3 15 3 30 Cervical PSP 10 2 10 2 20 Trapezius 15 3 15 3 30 Total Units used: 200 Total Units wasted: 0 Prior Therapies Duration of Use Dose Side effect Palomo Davalos MD documented [facility] Telephone encounter Note * Telephone Encounter - Kya Elise RN - 06/23/2024 1:35 PM EDT [facility] 06/10/24: Has had improvement since our discussion on MyChart about 2 months ago. Wind, air, and breathing causes sensitivity in the ear. It is worse in the left ear. Drainage is intermittent and minimal. Will have blood from the ear 2 times a year. Hearing fluctuates, but overall stable [facility] Miscellaneous Notes* Telephone Encounter - Kya Elise RN - 06/23/2024 1:35 PM EDT [facility] 06/10/24: Has had improvement since our discussion on MyChart about 2 months ago. Wind, air, and breathing causes sensitivity in the ear. It is worse in the left ear. Drainage is intermittent and minimal. Will have blood from the ear 2 times a year. Hearing fluctuates, but overall stable documented in this encounterM[facility]07-24-2024 Instructions* Patient Instructions* Siena Wu PA-C - 06/10/2024 4:23 PM EDT PLAN: -PORP on the right near the stapes (likely replaced the incus) -K-Hanna on the left ear between the stapes and the incus -Let me know if your ears flare up documented in this encounterM[facility]07-24-2024 History of Present illness Narrative* Siena Wu PA-C - 06/10/2024 4:05 PM EDT History of Present Illness Ms. PAO LION is a 54 year old female with history of bilateral conductive hearing loss + bilateral PONTO and bilateral ossicular chain reconstruction, Left with revision K-Hanna to RICKY prosthesis with type 3 tympanoplasty 08/18/18; Right 06/08/19 , presents to the clinic for a follow up. Chief Complaint: Ear concerns. Last seen by Dr. Teresa Harry on 10/05/2021. Since last seen, Has had improvement since our discussion on MyChart about 2 months ago. Wind, air, and breathing causes sensitivity in the ear. It is worse in the left ear. Drainage is intermittent and minimal. Will have blood from the ear 2 times a year. Hearing fluctuates, but overall stable. Doing well with BAIs, no pain or drainage from the abutment. Struggles at times with clarity, but does not wear the BAIs all the time. They are used intermittent. Tinnitus, ringing, ongoing for many years. This also fluctuates, but stable. Recall POTS history, she is dizzy intermittently, but not from ears. Facial numbness and tingling on the left side. It can sometimes be the whole face, the tongue, etc.History of trigeminal neuralgia. It will last hours at a time. ALLERGIES Allergen Reactions Biaxin [Clarithromy* GI Upset Sutures Rash, Hives, Swelling, Itching Specifically, cat gut sutures Cymbalta [Duloxetin* Swelling Severe abdominal pain Demerol [Meperidine* Vomiting Indomethacin Swelling Had 4+ edema in legs and arms the day after taking a new prescription. Morphine Vomiting Naproxen GI Upset Penicillins Rash, Hives Patient can tolerate Augmentin Vancomycin GI Upset Versed [Midazolam H* Vomiting Z Pack [Azithromyci* Rash, GI Upset Current Outpatient Medications on File Prior to Visit Medication Sig Milnacipran (SAVELLA) 12.5 mg tab Take 12.5 mg by mouth once daily. lisdexamfetamine (VYVANSE) 50 mg capsule Take 1 capsule by mouth once daily for 30 days. XYWAV 0.5 gram/mL soln oral liquid Take 9 mL by mouth at bedtime and 4 hours after. lisdexamfetamine (VYVANSE) 50 mg capsule Take 1 capsule by mouth once daily for 30 days. Do not start before June 08, 2024. keTORolac (TORADOL) 60 mg/2 mL soln INJECT 2ML INTRAMUSCULARLY ONE TIME ONLY FOR 1 DOSE levothyroxine (SYNTHROID) 50 mcg tablet TAKE 1 TABLET BY MOUTH SATURDAY THROUGH SATURDAY. SKIP SATURDAY. dexAMETHasone sodium phosphate (DECADRON) 4 mg/mL injection INJECT 1ML (4MG) INTRAMUSCULARLY EVERY 6 HOURS NEEDED FOR ADRENAL STRESS, USE WHEN VOMITING OR DIARRHEA PREVENTS USE OF THE ORAL DOSE. desmopressin acetate (DDAVP) 0.1 mg tablet Take 0.1 mg by mouth three times daily. liothyronine (CYTOMEL) 5 mcg tablet Take 5 mcg by mouth twice daily. ezetimibe (ZETIA) 10 mg tablet Take 10 mg by mouth every morning. REPATHA SURECLICK 140 mg/mL pen injector INJECT 140 MG UNDER THE SKIN EVERY 2 WEEKS hydrOXYzine HCl (ATARAX) 25 mg tablet Take 25 mg by mouth as needed. omeprazole (PRILOSEC) 40 mg capsule Take 40 mg by mouth as needed. esterified estrogens-methylTESTOSTERone (ESTRATEST) 1.25-2.5 mg per tablet Take 1 tablet by mouth once daily. tiZANidine (ZANAFLEX) 4 mg tablet Take 4 mg by mouth as needed. lisdexamfetamine (VYVANSE) 50 mg capsule Take 1 capsule by mouth once daily for 30 days. Do not start before May 09, 2024. ondansetron (ZOFRAN) 8 mg tablet Take by mouth three times a day as needed. (Patient not taking: Reported on 06/10/2024) carBAMazepine (TEGRETOL) 200 mg tablet Take 2 tablets by mouth three times daily. (Patient not taking: Reported on 05/28/2024) SUMAtriptan (IMITREX) 100 mg tablet Take 100 mg by mouth. (Patient not taking: Reported on 06/10/2024) No current facility-administered medications on file prior to visit. Objective: There were no vitals taken for this visit. Appearance: Non-syndromic, cooperative and calm Communication: Voice has adequate volume; there is no stridor Head/Face: head and facial contours are symmetric Facial nerve 1/6 bilateral Skin: no skin lesions or scarring on face Ears: AD External auditory canal patent. TM is thickened with grafting. Abutment is tightly secured, excellent clearance, healthy surrounding skin. External auditory canal is patent. TM is thickened. Abutment is tightly secured, excellent clearance, healthy surrounding skin. Neuro/Psych.: Alert and Oriented x 3 Cranial nerves intact Data Review: Assessment: (H90.0) Conductive hearing loss, bilateral (primary encounter diagnosis) (H66.3X3) Chronic suppurative otitis media of both ears, unspecified otitis media location Plan: Provided patient with the types of OCR implants she has in each ear. Follow up with any flares. Orders: No orders found for this visit on 06/10/24. Procedures: None. Siena Wu PA-C July 01, 2024 10:18 AM Medical Decision Making: Problems: Moderate: 2+ stable chronic illnesses Risk: Minimal: Minimal risk from testing/treatment Medical Decision Making Level: 2 - Straightforward * Stefany Sanderson MA - 06/10/2024 3:51 PM EDT Tobacco Use: 1 packs/day, for 18 years. Quit 09/27/1994. Types: Cigarettes Was smoking cessation packet given? N/A - Patient is a non-smoker or quit >1 year ago. Was a referral initiated?N/A Patient is a non-smoker documented in this encounterM[facility]07-12-[facility]24 Hospital Discharge instructions* Discharge Instr - Other Orders* Ester Cali MD - 05/29/2024 9:31 AM EDT Images from the original note were not included. Ester Cali MD [facility] Colorectal Surgery [id number] [facility] [address] [place] [address] Fax Post-Operative Information for General Ano-Rectal Patients Activity -Activity as tolerated. -No lifting over 20 pounds for 2 weeks. -No strenuous exercise, aerobics, or jogging for 2 weeks. -No driving for 48 hours or while taking narcotics. Diet -Full liquid (soup and smoothie) diet for 48 hours, then high fiber diet. This is for comfort to prevent constipation. -Drink eight 8 oz glasses of water daily to keep bowel movements soft. -Take 2 tablespoons of mineral oil for the first 5 nights. Discontinue if stool becomes loose. -If no bowel movement has occurred by 72 hours after surgery or you experience severe straining, take the following steps: 1. Milk of Magnesia- 1 tablespoon every 4-6 hours until relief. 2. If no relief, purchase and consume 10 oz bottle of magnesium citrate. 3. If still no relief, contact the office to speak with the nurse. Pain Control -Alternate Tylenol and ibuprofen around the clock as baseline pain control -Sitz baths (soaking in hot water) as often as desired to release muscle spasm and help with pain -[place] 1 tab as needed - this should be your last resort for pain control as the medication is veryconstipating. Ensure you are taking the bowel regimen medications above if you require [place] for pain. Wound -Starting the evening of surgery, fill your Sitz bath basin with warm water and place it on your toilet bowel. Sit for 15 minutes, 3 times daily and after each bowel movement. If you have to use toilet tissue, use a moist cotton pad or wet wipe to clean. -Keep a cotton ball or dry gauze at your anal opening at all times. Tuck it between your buttocks without tape, and change it after each Sitz bath. This promotes healing. Once there is no longer staining on the dressing, you do not have to keep placing one. -Do not use a donut shaped cushion. - If the SKIN in the anal area is very raw and painful, apply a protective paste (i.e. calmoseptineor zinc oxide) to the area and place an absorbent pad between the buttocks to keep the cheeks and absorb moisture 3-4 time a day. - DO NOT use an enema or suppository unless this is specifically discussed first. They may cause serious damage. Other -Resume aspirin 1 week after surgery if indicated (unless given other specific instructions). -Do not be alarmed with slight bleeding with bowel movements. If excessive (greater than half a cup), please call the office. -You will likely experience extreme discomfort for 2 weeks after surgery and may have a low grade fever during this time. This is expected. -Rarely, anorectal procedures can cause urinary retention (inability to urinate). If you have not urinated within 7 hours of the procedure, run a hot bath and see if the water can relax the bladder muscle so you can urinate. If you cannot urinate and it has been 8 hours, you will have to come to the emergency room for placement of a temporary urinary catheter. Expect the following: - Minor pink staining and a few spots of blood. - Erratic bowel movements - especially constipation. - Seepage of stool and gas. - Minor drainage of pus and mucus. - Pain Call the office or answering service immediately if any of the following occur: - Heavy rectal bleeding with passage of clots or if it soaks through 5 pads in a day. - Severe pain not relieved by pain medication. - Temperature more than 101 F (38 C). - Heavy drainage of pus. - Passage of stool and gas from the vagina (if applicable), especially when these were not present before surgery. - Difficulty in passing urine. Problems: - Office hours are 8:00 am to 5:00 pm Saturday thru Saturday. - After hours, IF IT IS AN EMERGENCY, please go to the closest Emergency room. Please schedule a follow-up appointment for 4-6 weeks after surgery. - If you have not already scheduled your follow-up appointment, call the office [phone] to setit up within 1-2 weeks - You should arrange to be seen in 4-6 weeks after surgery. Your appointment will likely be with our nurse practitioner Cristal Way. documented in this encounterM[facility]07-12-[facility]24 Surgery Surgical operation note* Operative Report - Ester Cali MD - 05/29/2024 8:30 AM EDT COLON AND RECTAL SURGERY OPERATIVE REPORT PATIENT NAME: Pao Lion ADMISSION DATE: 05/29/2024 LOG ID: [id number] SURGERY/PROCEDURE DATE: 05/29/2024 INCISION/PROCEDURE START TIME: 8:49 AM INCISION CLOSE/PROCEDURE END TIME: 9:13 AM AGE: [age] year old SEX: female SURGEON(S)/PROCEDURALIST(S) AND MOLD SHEET CLEANER(S): Surgeon(s) and Role: * Etser Cali MD - Primary No Additional Staff ANESTHESIA: Monitored Anesthesia Care PREOPERATIVE DIAGNOSIS (ES): Symptomatic internal hemorrhoids POSTOPERATIVE DIAGNOSIS (ES): Symptomatic internal hemorrhoids NAME OF OPERATION: Exam Under Anesthesia, Transanal Hemorrhoidal Dearterialization (THD) INDICATIONS FOR PROCEDURE: Symptomatic internal hemorrhoids OPERATIVE FINDINGS: Resolving thrombosis right anterior, otherwise normal external hemorrhoids. Mildly enlarged internal hemorrhoids all locations. Normal tone, no pelvic floor hypertrophy or spasm. DESCRIPTION OF PROCEDURE: The patient was brought the operating room, placed under MAC anesthesia in the prone emma-knife position. A surgical time-out was performed. The perineum was prepped and draped in normal sterile fashion and anesthetized with 40 mL of Exparel/0.5% Marcaine. A detailed digital rectal exam and anoscopy was performed which revealed: Resolving thrombosis right anterior external hemorrhoid, otherwise normal external hemorrhoids. Mildly enlarged internal hemorrhoids all locations. Normal tone, no pelvic floor hypertrophy or spasm. Using the THD machine, doppler ultrasound located the arterial pedicles at the 1, 3, 5, 7, 9, and 11 o'clock positions. After locating the arterial pedicle, the prepackaged THD Truglyde suture was used to ligate the pedicle in a figure of 8 fashion and was tied. There was not sufficient redundant internal hemorrhoid tissue to warrant suture hemorrhoidopexy. Hemostasis was obtained, dressing was applied. ESTIMATED BLOOD LOSS: 10 mL SPECIMENS: None INTRAOPERATIVE FLUIDS: See anesthesia record. SPONGE/INSTRUMENT/NEEDLE COUNTS: Correct x2. PRESENCE STATEMENT: I was present for the entire procedure as I have dictated above. Ester Cali M.D. Department of Surgery Division of Colon and Rectal Surgery [facility]07-12-[facility] Surgical operation note* Operative Report - Ester Cali MD - 05/29/2024 8:30 AM EDT COLON AND RECTAL SURGERY OPERATIVE REPORT PATIENT NAME: Pao Lion ADMISSION DATE: 05/29/2024 LOG ID: [id number] SURGERY/PROCEDURE DATE: 05/29/2024 INCISION/PROCEDURE START TIME: 8:49 AM INCISION CLOSE/PROCEDURE END TIME: 9:13 AM AGE: [age] year old SEX: female SURGEON(S)/PROCEDURALIST(S) AND MOLD SHEET 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 Mildly enlarged internal hemorrhoids all locations. Normal tone, no pelvic floor hypertrophy or spasm. DESCRIPTION OF PROCEDURE: The patient was brought the operating room, placed under MAC anesthesia in the prone emma-knife position. A surgical time-out was performed. The perineum was prepped and draped in normal sterile fashion and anesthetized with 40 mL of Exparel/0.5% Marcaine. A detailed digital rectal exam and anoscopy was performed which revealed: Resolving thrombosis right anterior external hemorrhoid, otherwise normal external hemorrhoids. Mildly enlarged internal hemorrhoids all locations. Normal tone, no pelvic floor hypertrophy or spasm. Using the THD machine, doppler ultrasound located the arterial pedicles at the 1, 3, 5, 7, 9, and 11 o'clock positions. After locating the arterial pedicle, the prepackaged THD Truglyde suture was used to ligate the pedicle in a figure of 8 fashion and was tied. There was not sufficient redundant internal hemorrhoid tissue to warrant suture hemorrhoidopexy. Hemostasis was obtained, dressing was applied. ESTIMATED BLOOD LOSS: 10 mL SPECIMENS: None INTRAOPERATIVE FLUIDS: See anesthesia record. SPONGE/INSTRUMENT/NEEDLE COUNTS: Correct x2. PRESENCE STATEMENT: I was present for the entire procedure as I have dictated above. Ester Cali M.D. Department of Surgery Division of Colon and Rectal [facility] Attending History and physical note* Ester Cali MD - 05/29/2024 8:11 AM EDT UPDATED HISTORY AND PHYSICAL EXAMINATION SERVICE DATE: 05/29/2024 SERVICE TIME: 8:11 AM PHYSICAL EXAM MUST BE COMPLETED ON ADMISSION The History and Physical (completed in the past 30 days) has been reviewed and the patient has beenexamined. The contents accurately reflect the patient's condition with the following additions or revisions since the H&P was completed. CV: RRR Pulm: no increased respiratory effort Examination indicates no changes. This H&P can be found in the attached. SIGNATURE: Ester Cali MD PATIENT NAME: Pao Lion DATE: May 29, 2024 TIME: 8:11 AM Source Note - Mirta Gonzalez PA-C - 05/28/2024 11:20 AM EDT Images from the original note were not included. [facility] HISTORY AND PHYSICAL EXAMINATION SERVICE DATE: 05/28/2024 SERVICE TIME: 11:10 AM PRIMARY CARE PHYSICIAN: David Mayfield DO Assessment Patient has the following medical conditions which may affect frieda-operative course: Trigeminal neuralgia Assessment: taking carbamazepine PRN, no recent use POTS (postural orthostatic tachycardia syndrome) Assessment: taking DDAVP, following with Cardiology Sleep apnea Assessment: denies, not using CPAP Hypothyroidism Assessment: taking levothyroxine and cytomel, follows with Endo Adrenal insufficiency Assessment: follows with Dr. Jose Laughlin Dyslipidemia Assessment: taking zetia and Repatha Walker Activity Status Index: METS: Climb a flight of stairs or walk up a hill (5.50 METs) DASI Score: 5.5 Patient denies any chest pain or undue shortness of breath with the above physical activity. Clinical Frailty Scale: 4. Apparently vulnerable STOP-Bang Score: Snores loudly Patient over 50 years old Denies feeling tired, fatigued, or sleepy during the daytime Has not been observed to stop breathing or choking/gasping during sleep Denies having high blood pressure BMI less than or equal to 35 kg/m^2 Does not have a large neck Non-male patient STOP-Bang Score: 2 ANESTHESIA FINDINGS: Intubation History: No history of difficult intubation Significant Anesthesia Considerations: potential postop nausea/vomiting Airway History: No history of difficult airway I - PHYSICAL EVALUATION AIRWAY Patient intubated: No. Tracheostomy tube not present Mallampati: III. TM distance: >3 FB. Neck ROM: full ROM without neurological symptoms. Mouth opening: adequate. Short neck: no. Thick neck: no Evans present: no Lip Bite Test: II Microretrognathia/Micronagthia/Recessed Chin: No DENTAL Dental findings: teeth intact. II - ANESTHESIA PLAN Anesthetic plan additional comments: *PACC/TCI - anesthesia choice. Beta Tyree Monitoring Plan Post Procedure Analgesic Plan Prepared for Surgery: optimally prepared for surgery. CONSULTS: The following consults have been initiated at this time: endocrinology (pt will call her Endo, Dr. Eugene, about steroid dosing intraop). Planned Anesthetic: anesthesia choice The Following Tests/Procedures Have Been Initiated: No orders of the defined types were placed in this encounter. This is a virtual visit using [employer] video visit. It required patient-provider interaction for themedical decision making as documented below. REASON FOR VISIT: Pao Lion is a 54 year old female who is scheduled for Procedure(s): HEMORRHOIDECTOMY INTERNAL TRANSANAL HEMORRHOIDAL DEARTERIALIZATION, 2 OR MORE HEMORRHOID COLUMNS/GROUPS INCL ULTRASOUND GUIDANCE W/MUCOPEXY WHEN PERFORMED (N/A) at the request of Dr. Ester Cali for consultation. My final recommendation will be communicated back to the requesting physician by way of shared medical record or letter. 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 Intractable Chronic Migraine Without Aura and Without Status Migrainosus Conductive Hearing Loss, Bilateral Tinnitus, Bilateral Cholesteatoma, Middle Ear, Left Pots (Postural Orthostatic Tachycardia Syndrome) Supraventricular Tachycardia (Hcc) COVID-19 Immunization Status Overdue - Covid-19 Vaccine (2022- season) Overdue since 07/19/2023 11/23/2022 Imm Admin: COVID-19 vaccine, age 12+ yr, bivalent (MODERNA) 07/19/2021 Imm Admin: COVID-19 original vaccine, full dose, monovalent (MODERNA) 02/16/2021 Imm Admin: COVID-19 original vaccine, full dose, monovalent (MODERNA) Only the first 3 history entries have been loaded, but more history exists. CHIEF COMPLAINT: Hemorrhoids, unspecified hemorrhoid type HPI: Pao Lion is a 54 year old female who is scheduled for HEMORRHOIDECTOMY INTERNAL TRANSANAL HEMORRHOIDAL DEARTERIALIZATION, 2 OR MORE HEMORRHOID COLUMNS/GROUPS INCL ULTRASOUND GUIDANCE W/MUCOPEXY WHEN PERFORMED at the request of Dr. Ester Cali for 05/29/2024. She reports hemorrhoids for years, but symptoms have worsened over the past 1-2 years. She reports intermittent pain , and episodes in which it is painful to sit down. She denies any bleeding. This is a virtual visit. The visit was conducted using [employer] video visit. It required patient-provider interaction for the medical decision making as documented below. I have communicated my name and active licensure. The patient's identity and physical location wereverified at the time of this visit. Either the patient or their legal retail wireless sales representative has been informed of the risks and benefits of and alternatives to treatment through a remote evaluation and consents to proceed with the evaluation remotely. REVIEW OF SYSTEMS: General: No weight loss, malaise or fevers. Neurological: +trigeminal neuralgia Positive for: headaches. Respiratory: Positive for: obstructive sleep apnea and CPAP/BiPAP noncompliant. Negative for: pneumonia within 6 weeks and URI < 2 weeks. Cardiovascular: +POTS +SVT Positive for: arrhythmia and hyperlipidemia Negative for: CAD, chest pain and DVT/PE. GI: See HPI. : No history of dysuria, frequency or incontinence, stones or chronic kidney disease. No difficulty urinating, nocturia > 1 time per night or hematuria. Endocrine: +adrenal insufficiency Positive for: hypothyroidism. Hematology: No history of bleeding or clotting disorder. Patient is not taking anti-coagulation or platelet medications. No history of hematological symptoms or problems. Oncology: No history of CA metastasis, chemo within 30 days, or radiotherapy within 90 days. No history of oncological symptoms or problems. Psych: No history of psychiatric symptoms or problems. Musculoskeletal: Negative for joint pain or swelling, back pain or muscle pain. Skin: Negative for lesions, rash and itching. PAST MEDICAL HISTORY Diagnosis Date Dyslipidemia Fracture Hearing difficulty bilateral bone achored hearing aids - implants Hyperglycemia Hypothyroidism Migraine Narcolepsy Mild Osteopenia PMH - PAST MEDICAL HISTORY OF Thyroid problems PMH - PAST MEDICAL HISTORY OF rt. rotator cuff POTS (postural orthostatic tachycardia syndrome) Radiculopathy lower, right moderate, left mild Sleep apnea Trigeminal neuralgia Left PAST SURGICAL HISTORY Procedure Laterality Date ABDOMINOPLASTY UMBILICAL TRANSPOSITION AND FASCIAL 06/2017 LIG/TRNSXJ FLP TUBE ABDL/VAG APPR UNI/BI PAST SURGICAL HISTORY OF Ear surgery tubes PAST SURGICAL HISTORY OF deviated septum PAST SURGICAL HISTORY OF 2004 hysterectomy, vaginal taping PAST SURGICAL HISTORY OF epideral back injections PAST SURGICAL HISTORY OF Rt. rotator cuff repair PAST SURGICAL HISTORY OF 06/25/2011 IMPLANT OSSEOINTEGRATED IMPLANT TEMPORAL BONE W/ PERC ATTACH TO STIMULATOR W/O MASTOIDECTOMY PAST SURGICAL HISTORY OF 2012 right rotator cuff repair PAST SURGICAL HISTORY OF 2005 ovaries and fallopian tubes removed PAST SURGICAL HISTORY OF 11/2014 Interstim ROTATOR CUFF REPAIR Left TONSILLECTOMY & ADENOIDECTOMY AGE 14/> FAMILY HISTORY Problem Relation Age of Onset Heart Mother TIA Heart Father COPD Father Headache Sister Headache Other niece Cancer Son hodgkins lymphoma Asthma Brother Asthma Daughter Asthma Son Social History Tobacco Use Smoking status: Former Packs/day: 1.00 Years: 18.00 Additional pack years: 0.00 Total pack years: 18.00 Types: Cigarettes Quit date: 09/27/1994 Years since quittin.6 Smokeless tobacco: Never Vaping Use Vaping Use: Never used Substance Use Topics Alcohol use: Not Currently Drug use: No Comment: denies tx for drug/alcohol abuse in the past. Prior to Admission medications as of 05/28/24 1303 Medication Sig Last Dose Taking Milnacipran (SAVELLA) 12.5 mg tab Take 12.5 mg by mouth once daily. Taking Yes XYWAV 0.5 gram/mL soln oral liquid Take 9 mL by mouth at bedtime and 4 hours after. Taking Yes lisdexamfetamine (VYVANSE) 50 mg capsule Take 1 capsule by mouth once daily for 30 days. Do not start before May 09, 2024. Taking Yes keTORolac (TORADOL) 60 mg/2 mL soln INJECT 2ML INTRAMUSCULARLY ONE TIME ONLY FOR 1 DOSE Taking Yes ondansetron (ZOFRAN) 8 mg tablet Take by mouth three times a day as needed. Taking Yes levothyroxine (SYNTHROID) 50 mcg tablet TAKE 1 TABLET BY MOUTH SATURDAY THROUGH SATURDAY. SKIP SATURDAY. Taking Yes dexAMETHasone sodium phosphate (DECADRON) 4 mg/mL injection INJECT 1ML (4MG) INTRAMUSCULARLY EVERY 6 HOURS NEEDED FOR ADRENAL STRESS, USE WHEN VOMITING OR DIARRHEA PREVENTS USE OF THE ORAL DOSE. Taking Yes desmopressin acetate (DDAVP) 0.1 mg tablet Take 0.1 mg by mouth three times daily. Taking Yes liothyronine (CYTOMEL) 5 mcg tablet Take 5 mcg by mouth twice daily. Taking Yes ezetimibe (ZETIA) 10 mg tablet Take 10 mg by mouth every morning. Taking Yes REPATHA SURECLICK 140 mg/mL pen injector INJECT 140 MG UNDER THE SKIN EVERY 2 WEEKS Taking Yes hydrOXYzine HCl (ATARAX) 25 mg tablet Take 25 mg by mouth as needed. Taking Yes omeprazole (PRILOSEC) 40 mg capsule Take 40 mg by mouth as needed. Taking Yes SUMAtriptan (IMITREX) 100 mg tablet Take 100 mg by mouth. Taking Yes esterified estrogens-methylTESTOSTERone (ESTRATEST) 1.25-2.5 mg per tablet Take 1 tablet by mouth once daily. Taking Yes tiZANidine (ZANAFLEX) 4 mg tablet Take 4 mg by mouth as needed. Taking Yes lisdexamfetamine (VYVANSE) 50 mg capsule Take 1 capsule by mouth once daily for 30 days. lisdexamfetamine (VYVANSE) 50 mg capsule Take 1 capsule by mouth once daily for 30 days. Do not start before June 08, 2024. carBAMazepine (TEGRETOL) 200 mg tablet Take 2 tablets by mouth three times daily. Patient not taking: Reported on 05/28/2024 Not Taking No medication comments found. ALLERGIES Allergen Reactions Biaxin [Clarithromy* GI Upset Sutures Rash, Hives, Swelling, Itching Specifically, cat gut sutures Cymbalta [Duloxetin* Swelling Severe abdominal pain Demerol [Meperidine* Vomiting Indomethacin Swelling Had 4+ edema in legs and arms the day after taking a new prescription. Morphine Vomiting Naproxen GI Upset Penicillins Rash, Hives Vancomycin GI Upset Versed [Midazolam H* Vomiting Z Pack [Azithromyci* Rash, GI Upset Objective PHYSICAL EXAM: (if completed, exam performed via video enabled technology) General: alert and oriented and healthy appearance. Pertinent negatives noted - not distressed. Skin: normal color, no rash or lesions. HEENT: EOM intact and pupils equal round. Throat; OROPHARYNX: moist mucus membranes. Neck; full ROM, no cervical LNs noted. Cardiovascular: Pulse characterized as regular.RRR, confirmed with radial pulse exam. Respiratory: Breathing non-labored . Abdomen: Pertinent negatives noted - not tender. Extremities: no deformity, no edema or tenderness, no joint swelling or clubbing. Neurological: normal cognition and motor skills. PAIN ASSESSMENT: VITALS: Ht 5' 0 (1.52m) Wt 125 lb (56.7kg) BMI 24.41 kg/(m^2). Diagnostic tests reviewed for today's visit: Lab Value Units Date High Low HB No results within date range. HCT No results within date range. WBC No results within date range. PLT No results within date range. NA No results within date range. K No results within date range. GLUC No results within date range. BUN No results within date range. CREAT No results within date range. PTSEC No results within date range. INR No results within date range. APTT No results within date range. ALT No results within date range. AST No results within date range. TBILI No results within date range. TSH No results within date range. Lab Value Units Date High Low HCGQT No results within date range. UHCG No results within date range. HCG, BODY* No results within date range. Lab Value Units Date High Low ABORHD No results within date range. ABSCREEN No results within date range. No results found for: HBA1C Recent Results (from the past 8760 hour(s)) ECG COMPLETE Collection Time: 12/16/23 5:24 PM Result Value Ventricular Rate 82 Atrial Rate 82 P-R Interval 126 QRS Duration 82 QT Interval 370 QTC Calculation (Bazett) 432 Calculated P Callery 65 Calculated R Callery 34 Calculated T Callery 30 Impression NORMAL SINUS RHYTHM NORMAL ECG Confirmed by MD CLAUDIA, [facility] ([id number]) on 12/31/2023 2:59:40 PM No results found for this or any previous visit (from the past 28731 hour(s)). Instructions Given to Patient: Instructions located in the after visit summary. Patient given verbal and written preop instructions and voices comprehension and compliance. SIGNATURE: Mirta Gonzalez PA-C PATIENT NAME: Pao Lion DATE: May 28, 2024 TIME: 1:05 PM PAGER/CONTACT #: [facility]07[facility]12[facility] History and physical note* Ester Cali MD - 05/29/2024 8:11 AM EDT UPDATED HISTORY AND PHYSICAL EXAMINATION SERVICE DATE: 05/29/2024 SERVICE TIME: 8:11 AM PHYSICAL EXAM MUST BE COMPLETED ON ADMISSION The History and Physical (completed in the past 30 days) has been reviewed and the patient has beenexamined. The contents accurately reflect the patient's condition with the following additions or revisions since the H&P was completed. CV: RRR Pulm: no increased respiratory effort Examination indicates no changes. This H&P can be found in the attached. SIGNATURE: Ester Cali MD PATIENT NAME: Pao Lion DATE: May 29, 2024 TIME: 8:11 AM Source Note - Mirta Gonzalez PA-C - 05/28/2024 11:20 AM EDT Images from the original note were not included. [facility] HISTORY AND PHYSICAL EXAMINATION SERVICE DATE: 05/28/2024 SERVICE TIME: 11:10 AM PRIMARY CARE PHYSICIAN: David Mayfield DO Assessment Patient has the following medical conditions which may affect frieda-operative course: Trigeminal neuralgia Assessment: taking carbamazepine PRN, no recent use POTS (postural orthostatic tachycardia syndrome) Assessment: taking DDAVP, following with Cardiology Sleep apnea Assessment: denies, not using CPAP Hypothyroidism Assessment: taking levothyroxine and cytomel, follows with [facility] Adrenal insufficiency Assessment: follows with Dr. Jose Laughlin Dyslipidemia Assessment: taking zetia and Repatha Walker Activity Status Index: METS: Climb a flight of stairs or walk up a hill (5.50 METs) DASI Score: 5.5 Patient denies any chest pain or undue shortness of breath with the above physical activity. Clinical Frailty Scale: 4. Apparently vulnerable STOP-Bang Score: Snores loudly Patient over 50 years old Denies feeling tired, fatigued, or sleepy during the daytime Has not been observed to stop breathing or choking/gasping during sleep Denies having high blood pressure BMI less than or equal to 35 kg/m^2 Does not have a large neck Non-male patient STOP-Bang Score: 2 ANESTHESIA FINDINGS: Intubation History: No history of difficult intubation Significant Anesthesia Considerations: potential postop nausea/vomiting Airway History: No history of difficult airway I - PHYSICAL EVALUATION AIRWAY Patient intubated: No. Tracheostomy tube not present Mallampati: III. TM distance: >3 FB. Neck ROM: full ROM without neurological symptoms. Mouth opening: adequate. Short neck: no. Thick neck: no Evans present: no Lip Bite Test: II Microretrognathia/Micronagthia/Recessed Chin: No DENTAL Dental findings: teeth intact. II - ANESTHESIA PLAN Anesthetic plan additional comments: *PACC/TCI - anesthesia choice. Beta Tyree Monitoring Plan Post Procedure Analgesic Plan Prepared for Surgery: optimally prepared for surgery. CONSULTS: The following consults have been initiated at this time: endocrinology (pt will call her Dr. Jose Laughlin, about steroid dosing intraop). Planned Anesthetic: anesthesia choice The Following Tests/Procedures Have Been Initiated: No orders of the defined types were placed in this encounter. This is a virtual visit using [employer] video visit. It required patient-provider interaction for themedical decision making as documented below. REASON FOR VISIT: Pao Lion is a 54 year old female who is scheduled for Procedure(s): HEMORRHOIDECTOMY INTERNAL TRANSANAL HEMORRHOIDAL DEARTERIALIZATION, 2 OR MORE HEMORRHOID COLUMNS/GROUPS INCL ULTRASOUND GUIDANCE W/MUCOPEXY WHEN PERFORMED (N/A) at the request of Dr. Ester Cali for consultation. My final recommendation will be communicated back to the requesting physician by way of shared medical record or letter. 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 Intractable Chronic Migraine Without Aura and Without Status Migrainosus Conductive Hearing Loss, Bilateral Tinnitus, Bilateral Cholesteatoma, Middle Ear, Left Pots (Postural Orthostatic Tachycardia Syndrome) Supraventricular Tachycardia (Hcc) COVID-19 Immunization Status Overdue - Covid-19 Vaccine (2022- season) Overdue since 07/19/2023 11/23/2022 Imm Admin: COVID-19 vaccine, age 12+ yr, bivalent (MODERNA) 07/19/2021 Imm Admin: COVID-19 original vaccine, full dose, monovalent (MODERNA) 02/16/2021 Imm Admin: COVID-19 original vaccine, full dose, monovalent (MODERNA) Only the first 3 history entries have been loaded, but more history exists. CHIEF COMPLAINT: Hemorrhoids, unspecified hemorrhoid type HPI: Pao Lion is a 54 year old female who is scheduled for HEMORRHOIDECTOMY INTERNAL TRANSANAL HEMORRHOIDAL DEARTERIALIZATION, 2 OR MORE HEMORRHOID COLUMNS/GROUPS INCL ULTRASOUND GUIDANCE W/MUCOPEXY WHEN PERFORMED at the request of Dr. Ester Cali for 05/29/2024. She reports hemorrhoids for years, but symptoms have worsened over the past 1-2 years. She reports intermittent pain , and episodes in which it is painful to sit down. She denies any bleeding. This is a virtual visit. The visit was conducted using [employer] video visit. It required patient-provider interaction for the medical decision making as documented below. I have communicated my name and active licensure. The patient's identity and physical location wereverified at the time of this visit. Either the patient or their legal retail wireless sales representative has been informed of the risks and benefits of and alternatives to treatment through a remote evaluation and consents to proceed with the evaluation remotely. REVIEW OF SYSTEMS: General: No weight loss, malaise or fevers. Neurological: +trigeminal neuralgia Positive for: headaches. Respiratory: Positive for: obstructive sleep apnea and CPAP/BiPAP noncompliant. Negative for: pneumonia within 6 weeks and URI < 2 weeks. Cardiovascular: +POTS +SVT Positive for: arrhythmia and hyperlipidemia Negative for: CAD, chest pain and DVT/PE. GI: See HPI. : No history of dysuria, frequency or incontinence, stones or chronic kidney disease. No difficulty urinating, nocturia > 1 time per night or hematuria. Endocrine: +adrenal insufficiency Positive for: hypothyroidism. Hematology: No history of bleeding or clotting disorder. Patient is not taking anti-coagulation or platelet medications. No history of hematological symptoms or problems. Oncology: No history of CA metastasis, chemo within 30 days, or radiotherapy within 90 days. No history of oncological symptoms or problems. Psych: No history of psychiatric symptoms or problems. Musculoskeletal: Negative for joint pain or swelling, back pain or muscle pain. Skin: Negative for lesions, rash and itching. PAST MEDICAL HISTORY Diagnosis Date Dyslipidemia Fracture Hearing difficulty bilateral bone achored hearing aids - implants Hyperglycemia Hypothyroidism Migraine Narcolepsy Mild Osteopenia PMH - PAST MEDICAL HISTORY OF Thyroid problems PMH - PAST MEDICAL HISTORY OF rt. rotator cuff POTS (postural orthostatic tachycardia syndrome) Radiculopathy lower, right moderate, left mild Sleep apnea Trigeminal neuralgia Left PAST SURGICAL HISTORY Procedure Laterality Date ABDOMINOPLASTY UMBILICAL TRANSPOSITION AND FASCIAL 06/2017 LIG/TRNSXJ FLP TUBE ABDL/VAG APPR UNI/BI PAST SURGICAL HISTORY OF Ear surgery tubes PAST SURGICAL HISTORY OF deviated septum PAST SURGICAL HISTORY OF 2004 hysterectomy, vaginal taping PAST SURGICAL HISTORY OF epideral back injections PAST SURGICAL HISTORY OF Rt. rotator cuff repair PAST SURGICAL HISTORY OF 06/25/2011 IMPLANT OSSEOINTEGRATED IMPLANT TEMPORAL BONE W/ PERC ATTACH TO STIMULATOR W/O MASTOIDECTOMY PAST SURGICAL HISTORY OF 2012 right rotator cuff repair PAST SURGICAL HISTORY OF 2005 ovaries and fallopian tubes removed PAST SURGICAL HISTORY OF 11/2014 Interstim ROTATOR CUFF REPAIR Left TONSILLECTOMY & ADENOIDECTOMY AGE 14/> FAMILY HISTORY Problem Relation Age of Onset Heart Mother TIA Heart Father COPD Father Headache Sister Headache Other niece Cancer Son hodgkins lymphoma Asthma Brother Asthma Daughter Asthma Son Social History Tobacco Use Smoking status: Former Packs/day: 1.00 Years: 18.00 Additional pack years: 0.00 Total pack years: 18.00 Types: Cigarettes Quit date: 09/27/1994 Years since quittin.6 Smokeless tobacco: Never Vaping Use Vaping Use: Never used Substance Use Topics Alcohol use: Not Currently Drug use: No Comment: denies tx for drug/alcohol abuse in the past. Prior to Admission medications as of 05/28/24 1303 Medication Sig Last Dose Taking Milnacipran (SAVELLA) 12.5 mg tab Take 12.5 mg by mouth once daily. Taking Yes XYWAV 0.5 gram/mL soln oral liquid Take 9 mL by mouth at bedtime and 4 hours after. Taking Yes lisdexamfetamine (VYVANSE) 50 mg capsule Take 1 capsule by mouth once daily for 30 days. Do not start before May 09, 2024. Taking Yes keTORolac (TORADOL) 60 mg/2 mL soln INJECT 2ML INTRAMUSCULARLY ONE TIME ONLY FOR 1 DOSE Taking Yes ondansetron (ZOFRAN) 8 mg tablet Take by mouth three times a day as needed. Taking Yes levothyroxine (SYNTHROID) 50 mcg tablet TAKE 1 TABLET BY MOUTH SATURDAY THROUGH SATURDAY. SKIP SATURDAY. Taking Yes dexAMETHasone sodium phosphate (DECADRON) 4 mg/mL injection INJECT 1ML (4MG) INTRAMUSCULARLY EVERY 6 HOURS NEEDED FOR ADRENAL STRESS, USE WHEN VOMITING OR DIARRHEA PREVENTS USE OF THE ORAL DOSE. Taking Yes desmopressin acetate (DDAVP) 0.1 mg tablet Take 0.1 mg by mouth three times daily. Taking Yes liothyronine (CYTOMEL) 5 mcg tablet Take 5 mcg by mouth twice daily. Taking Yes ezetimibe (ZETIA) 10 mg tablet Take 10 mg by mouth every morning. Taking Yes REPATHA SURECLICK 140 mg/mL pen injector INJECT 140 MG UNDER THE SKIN EVERY 2 WEEKS Taking Yes hydrOXYzine HCl (ATARAX) 25 mg tablet Take 25 mg by mouth as needed. Taking Yes omeprazole (PRILOSEC) 40 mg capsule Take 40 mg by mouth as needed. Taking Yes SUMAtriptan (IMITREX) 100 mg tablet Take 100 mg by mouth. Taking Yes esterified estrogens-methylTESTOSTERone (ESTRATEST) 1.25-2.5 mg per tablet Take 1 tablet by mouth once daily. Taking Yes tiZANidine (ZANAFLEX) 4 mg tablet Take 4 mg by mouth as needed. Taking Yes lisdexamfetamine (VYVANSE) 50 mg capsule Take 1 capsule by mouth once daily for 30 days. lisdexamfetamine (VYVANSE) 50 mg capsule Take 1 capsule by mouth once daily for 30 days. Do not start before June 08, 2024. carBAMazepine (TEGRETOL) 200 mg tablet Take 2 tablets by mouth three times daily. Patient not taking: Reported on 05/28/2024 Not Taking No medication comments found. ALLERGIES Allergen Reactions Biaxin [Clarithromy* GI Upset Sutures Rash, Hives, Swelling, Itching Specifically, cat gut sutures Cymbalta [Duloxetin* Swelling Severe abdominal pain Demerol [Meperidine* Vomiting Indomethacin Swelling Had 4+ edema in legs and arms the day after taking a new prescription. Morphine Vomiting Naproxen GI Upset Penicillins Rash, Hives Vancomycin GI Upset Versed [Midazolam H* Vomiting Z Pack [Azithromyci* Rash, GI Upset Objective PHYSICAL EXAM: (if completed, exam performed via video enabled technology) General: alert and oriented and healthy appearance. Pertinent negatives noted - not distressed. Skin: normal color, no rash or lesions. HEENT: EOM intact and pupils equal round. Throat; OROPHARYNX: moist mucus membranes. Neck; full ROM, no cervical LNs noted. Cardiovascular: Pulse characterized as regular.RRR, confirmed with radial pulse exam. Respiratory: Breathing non-labored . Abdomen: Pertinent negatives noted - not tender. Extremities: no deformity, no edema or tenderness, no joint swelling or clubbing. Neurological: normal cognition and motor skills. PAIN ASSESSMENT: VITALS: Ht 5' 0 (1.52m) Wt 125 lb (56.7kg) BMI 24.41 kg/(m^2). Diagnostic tests reviewed for today's visit: Lab Value Units Date High Low HB No results within date range. HCT No results within date range. WBC No results within date range. PLT No results within date range. NA No results within date range. K No results within date range. GLUC No results within date range. BUN No results within date range. CREAT No results within date range. PTSEC No results within date range. INR No results within date range. APTT No results within date range. ALT No results within date range. AST No results within date range. TBILI No results within date range. TSH No results within date range. Lab Value Units Date High Low HCGQT No results within date range. UHCG No results within date range. HCG, BODY* No results within date range. Lab Value Units Date High Low ABORHD No results within date range. ABSCREEN No results within date range. No results found for: HBA1C Recent Results (from the past 8760 hour(s)) ECG COMPLETE Collection Time: 12/16/23 5:24 PM Result Value Ventricular Rate 82 Atrial Rate 82 P-R Interval 126 QRS Duration 82 QT Interval 370 QTC Calculation (Bazett) 432 Calculated P Callery 65 Calculated R Callery 34 Calculated T Callery 30 Impression NORMAL SINUS RHYTHM NORMAL ECG Confirmed by MD CLAUDIA, HEBA ([id number]) on 12/31/2023 2:59:40 PM No results found for this or any previous visit (from the past 85698 hour(s)). Instructions Given to Patient: Instructions located in the after visit summary. Patient given verbal and written preop instructions and voices comprehension and compliance. SIGNATURE: Mirta Gonzalez PA-C PATIENT NAME: Pao Lion DATE: May 28, 2024 TIME: 1:05 PM PAGER/CONTACT #: [facility] Note* West Munoz RN - 05/29/2024 8:05 AM EDT READINESS TO LEARN COGNITIVE ABILITY: Alert and oriented MOTIVATION TO LEARN: Eager Interested FAMILY SUPPORT: None - Unavailable/disinterested INSTRUCTION PROVIDED TO: Patient PATIENT LEARNS BEST BY: Verbal Instruction FACTORS AFFECTING LEARNING: None PHYSICAL LIMITATIONS AFFECTING LEARNING: None LEARNING RESPONSE DIAGNOSIS: ADULT: Well Adult PATIENT/FAMILY RESPONSE: Verbalizes understanding of: PRE-OPERATIVE INSTRUCTIONS-Correct action to take to follow pre-operative instructions PRE-PROCEDURE INSTRUCTIONS-Correct action to take to follow pre-procedure instructions METHOD OF INSTRUCTION: Verbal instruction FOLLOW-UP PLAN: Patient instructed to call with any further issues INSTRUCTIONAL AIDS USED: NA SUPPLEMENTAL MATERIAL PROVIDED TO PATIENT: None REFERRAL (RECOMMENDATION): None [facility] Nurse Note* West Munoz RN - 05/29/2024 8:05 AM EDT READINESS TO LEARN COGNITIVE ABILITY: Alert and oriented MOTIVATION TO LEARN: Eager Interested FAMILY SUPPORT: None - Unavailable/disinterested INSTRUCTION PROVIDED TO: Patient PATIENT LEARNS BEST BY: Verbal Instruction FACTORS AFFECTING LEARNING: None PHYSICAL LIMITATIONS AFFECTING LEARNING: None LEARNING RESPONSE DIAGNOSIS: ADULT: Well Adult PATIENT/FAMILY RESPONSE: Verbalizes understanding of: PRE-OPERATIVE INSTRUCTIONS-Correct action to take to follow pre-operative instructions PRE-PROCEDURE INSTRUCTIONS-Correct action to take to follow pre-procedure instructions METHOD OF INSTRUCTION: Verbal instruction FOLLOW-UP PLAN: Patient instructed to call with any further issues INSTRUCTIONAL AIDS USED: NA SUPPLEMENTAL MATERIAL PROVIDED TO PATIENT: None REFERRAL (RECOMMENDATION): None [facility] Instructions* Patient Instructions* Mirta Gonzalez PA-C - 05/28/2024 11:29 AM EDT PATIENT PREOPERATIVE INSTRUCTIONS Ester Cali MD has scheduled you for your procedure at this surgery center: [facility]: [phone] --[address] [place] [address]. Please read below carefully for your personalized instructions. Dietary Restrictions: - No solid food after midnight. - You may have 12 ounces of clear liquids (water, clear juices such as apple juice or gatorade, carbonated beverages, clear tea, black coffee, jello) until 2 hours before scheduled arrival at facility. Medications: Medications to take the day of surgery with a sip of water: Savella, levothyroxine, cytomel, zetia,hydroxyzine, desmopressin If you start any new medications after today's visit, please contact the surgeon's office. Blood Thinning Medications: - Stop NSAIDS (Ibuprofen, Advil, Aleve, Motrin, Celebrex, Mobic, etc.) 7 days before surgery, as directed by your surgeon. - Stop Aspirin 7 days before surgery, as directed by your surgeon. - Stop Vitamin E, ALL multi-vitamins, herbals and dietary supplements 7 days before surgery. - You may take Tylenol (Acetaminophen) or any of your pain medications that do not contain aspirin or NSAIDS as needed. Important Reminders: - If you use CPAP/BIPAP, bring the machine with you to the surgery center. - If you are prescribed inhalers for breathing, continue using them. - Candy, mints, and tobacco products are NOT permitted the morning of surgery. - Hearing aids, dentures and glasses may be worn the morning of surgery. - NO jewelry, body piercings, makeup, hairpins or contacts are to be worn the day of surgery. If you develop symptoms such as a fever, cold, or flu, or have other changes to your health within TWO DAYS of scheduled surgery or the morning of surgery, please contact the surgery center above. Personal Belongings: -Please have photo ID and insurance cards. -If you do not have a copy of advance directives on file with us, please bring a copy with you on the day of surgery. - Leave ALL valuables and money at home or with family members. For Outpatient Procedures: - YOU MUST HAVE A RESPONSIBLE MANAGER PROGRAMS TAKE YOU HOME. A NUCLEAR MEDICINE OFFICER OR OWNER ORAL SURGEON CANNOT BE MADE A RESPONSIBLE MANAGER PROGRAMS. - We recommend that a responsible person stays with you overnight to take care of you. - You cannot stay in a hotel alone after outpatient surgery. You will not be permitted to have yoursurgery, if you do not have someone to take care of you. Arrival Time for Surgery: - The Surgery Center or hospital where you are having surgery will call the afternoon before surgery (or Saturday for Saturday surgery) with a scheduled arrival time. - If you have not heard by 4 pm, please contact the surgery center above. Please be aware that emergency situations arise, which may delay or change your surgical time. If this happens, we will notify you as soon as possible and regret any inconvenience. If you already have an Advance Directive, please fax a copy to [phone] or email to for it to be added to your chart. If you do not have an Advance Directive, you can find the appropriate form and more information at [email or web address]. We recommend that youcomplete the Advance Directive form found on the website and bring it with you the day of your surgery. It can be witnessed and scanned into your chart that day. Mirta Gonzalez PA-C documented in this encounterM[facility] History and physical note * Mirta Gonzalez PA-C - 05/28/2024 11:20 AM EDT Images from the original note were not included. [facility] HISTORY AND PHYSICAL EXAMINATION SERVICE DATE: 05/28/2024 SERVICE TIME: 11:10 AM PRIMARY CARE PHYSICIAN: David Mayfield DO Assessment Patient has the following medical conditions which may affect frieda-operative course: Trigeminal neuralgia Assessment: taking carbamazepine PRN, no recent use POTS (postural orthostatic tachycardia syndrome) Assessment: taking DDAVP, following with Cardiology Sleep apnea Assessment: denies, not using CPAP Hypothyroidism Assessment: taking levothyroxine and cytomel, follows with Endo Adrenal insufficiency Assessment: follows with Dr. Jose Laughlin Dyslipidemia Assessment: taking zetia and Repatha Walker Activity Status Index: METS: Climb a flight of stairs or walk up a hill (5.50 METs) DASI Score: 5.5 Patient denies any chest pain or undue shortness of breath with the above physical activity. Clinical Frailty Scale: 4. Apparently vulnerable STOP-Bang Score: Snores loudly Patient over 50 years old Denies feeling tired, fatigued, or sleepy during the daytime Has not been observed to stop breathing or choking/gasping during sleep Denies having high blood pressure BMI less than or equal to 35 kg/m^2 Does not have a large neck Non-male patient STOP-Bang Score: 2 ANESTHESIA FINDINGS: Intubation History: No history of difficult intubation Significant Anesthesia Considerations: potential postop nausea/vomiting Airway History: No history of difficult airway I - PHYSICAL EVALUATION AIRWAY Patient intubated: No. Tracheostomy tube not present Mallampati: III. TM distance: >3 FB. Neck ROM: full ROM without neurological symptoms. Mouth opening: adequate. Short neck: no. Thick neck: no Evans present: no Lip Bite Test: II Microretrognathia/Micronagthia/Recessed Chin: No DENTAL Dental findings: teeth intact. II - ANESTHESIA PLAN Anesthetic plan additional comments: *PACC/TCI - anesthesia choice. Beta Tyree Monitoring Plan Post Procedure Analgesic Plan Prepared for Surgery: optimally prepared for surgery. CONSULTS: The following consults have been initiated at this time: endocrinology (pt will call her Endo, Dr. Eugene, about steroid dosing intraop). Planned Anesthetic: anesthesia choice The Following Tests/Procedures Have Been Initiated: No orders of the defined types were placed in this encounter. This is a virtual visit using [employer] video visit. It required patient-provider interaction for themedical decision making as documented below. REASON FOR VISIT: Pao Lion is a 54 year old female who is scheduled for Procedure(s): HEMORRHOIDECTOMY INTERNAL TRANSANAL HEMORRHOIDAL DEARTERIALIZATION, 2 OR MORE HEMORRHOID COLUMNS/GROUPS INCL ULTRASOUND GUIDANCE W/MUCOPEXY WHEN PERFORMED (N/A) at the request of Dr. Ester Cali for consultation. My final recommendation will be communicated back to the requesting physician by way of shared medical record or letter. 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 Intractable Chronic Migraine Without Aura and Without Status Migrainosus Conductive Hearing Loss, Bilateral Tinnitus, Bilateral Cholesteatoma, Middle Ear, Left Pots (Postural Orthostatic Tachycardia Syndrome) Supraventricular Tachycardia (Hcc) COVID-19 Immunization Status Overdue - Covid-19 Vaccine ( season) Overdue since 07/19/2023 11/23/2022 Imm Admin: COVID-19 vaccine, age 12+ yr, bivalent (MODERNA) 07/19/2021 Imm Admin: COVID-19 original vaccine, full dose, monovalent (MODERNA) 02/16/2021 Imm Admin: COVID-19 original vaccine, full dose, monovalent (MODERNA) Only the first 3 history entries have been loaded, but more history exists. CHIEF COMPLAINT: Hemorrhoids, unspecified hemorrhoid type HPI: Pao Lion is a 54 year old female who is scheduled for HEMORRHOIDECTOMY INTERNAL TRANSANAL HEMORRHOIDAL DEARTERIALIZATION, 2 OR MORE HEMORRHOID COLUMNS/GROUPS INCL ULTRASOUND GUIDANCE W/MUCOPEXY WHEN PERFORMED at the request of Dr. Ester Cali for 05/29/2024. She reports hemorrhoids for years, but symptoms have worsened over the past 1-2 years. She reports intermittent pain , and episodes in which it is painful to sit down. She denies any bleeding. This is a virtual visit. The visit was conducted using [employer] video visit. It required patient-provider interaction for the medical decision making as documented below. I have communicated my name and active licensure. The patient's identity and physical location wereverified at the time of this visit. Either the patient or their legal retail wireless sales representative has been informed of the risks and benefits of and alternatives to treatment through a remote evaluation and consents to proceed with the evaluation remotely. REVIEW OF SYSTEMS: General: No weight loss, malaise or fevers. Neurological: +trigeminal neuralgia Positive for: headaches. Respiratory: Positive for: obstructive sleep apnea and CPAP/BiPAP noncompliant. Negative for: pneumonia within 6 weeks and URI < 2 weeks. Cardiovascular: +POTS +SVT Positive for: arrhythmia and hyperlipidemia Negative for: CAD, chest pain and DVT/PE. GI: See HPI. : No history of dysuria, frequency or incontinence, stones or chronic kidney disease. No difficulty urinating, nocturia > 1 time per night or hematuria. Endocrine: +adrenal insufficiency Positive for: hypothyroidism. Hematology: No history of bleeding or clotting disorder. Patient is not taking anti-coagulation or platelet medications. No history of hematological symptoms or problems. Oncology: No history of CA metastasis, chemo within 30 days, or radiotherapy within 90 days. No history of oncological symptoms or problems. Psych: No history of psychiatric symptoms or problems. Musculoskeletal: Negative for joint pain or swelling, back pain or muscle pain. Skin: Negative for lesions, rash and itching. PAST MEDICAL HISTORY Diagnosis Date Dyslipidemia Fracture Hearing difficulty bilateral bone achored hearing aids - implants Hyperglycemia Hypothyroidism Migraine Narcolepsy Mild Osteopenia PMH - PAST MEDICAL HISTORY OF Thyroid problems PMH - PAST MEDICAL HISTORY OF rt. rotator cuff POTS (postural orthostatic tachycardia syndrome) Radiculopathy lower, right moderate, left mild Sleep apnea Trigeminal neuralgia Left PAST SURGICAL HISTORY Procedure Laterality Date ABDOMINOPLASTY UMBILICAL TRANSPOSITION AND FASCIAL 06/2017 LIG/TRNSXJ FLP TUBE ABDL/VAG APPR UNI/BI PAST SURGICAL HISTORY OF Ear surgery tubes PAST SURGICAL HISTORY OF deviated septum PAST SURGICAL HISTORY OF 2004 hysterectomy, vaginal taping PAST SURGICAL HISTORY OF epideral back injections PAST SURGICAL HISTORY OF Rt. rotator cuff repair PAST SURGICAL HISTORY OF 06/25/2011 IMPLANT OSSEOINTEGRATED IMPLANT TEMPORAL BONE W/ PERC ATTACH TO STIMULATOR W/O MASTOIDECTOMY PAST SURGICAL HISTORY OF 2012 right rotator cuff repair PAST SURGICAL HISTORY OF 2005 ovaries and fallopian tubes removed PAST SURGICAL HISTORY OF 11/2014 Interstim ROTATOR CUFF REPAIR Left TONSILLECTOMY & ADENOIDECTOMY AGE 14/> FAMILY HISTORY Problem Relation Age of Onset Heart Mother TIA Heart Father COPD Father Headache Sister Headache Other niece Cancer Son hodgkins lymphoma Asthma Brother Asthma Daughter Asthma Son Social History Tobacco Use Smoking status: Former Packs/day: 1.00 Years: 18.00 Additional pack years: 0.00 Total pack years: 18.00 Types: Cigarettes Quit date: 09/27/1994 Years since quittin.6 Smokeless tobacco: Never Vaping Use Vaping Use: Never used Substance Use Topics Alcohol use: Not Currently Drug use: No Comment: denies tx for drug/alcohol abuse in the past. Prior to Admission medications as of 05/28/24 1303 Medication Sig Last Dose Taking Milnacipran (SAVELLA) 12.5 mg tab Take 12.5 mg by mouth once daily. Taking Yes XYWAV 0.5 gram/mL soln oral liquid Take 9 mL by mouth at bedtime and 4 hours after. Taking Yes lisdexamfetamine (VYVANSE) 50 mg capsule Take 1 capsule by mouth once daily for 30 days. Do not start before May 09, 2024. Taking Yes keTORolac (TORADOL) 60 mg/2 mL soln INJECT 2ML INTRAMUSCULARLY ONE TIME ONLY FOR 1 DOSE Taking Yes ondansetron (ZOFRAN) 8 mg tablet Take by mouth three times a day as needed. Taking Yes levothyroxine (SYNTHROID) 50 mcg tablet TAKE 1 TABLET BY MOUTH SATURDAY THROUGH SATURDAY. SKIP SATURDAY. Taking Yes dexAMETHasone sodium phosphate (DECADRON) 4 mg/mL injection INJECT 1ML (4MG) INTRAMUSCULARLY EVERY 6 HOURS NEEDED FOR ADRENAL STRESS, USE WHEN VOMITING OR DIARRHEA PREVENTS USE OF THE ORAL DOSE. Taking Yes desmopressin acetate (DDAVP) 0.1 mg tablet Take 0.1 mg by mouth three times daily. Taking Yes liothyronine (CYTOMEL) 5 mcg tablet Take 5 mcg by mouth twice daily. Taking Yes ezetimibe (ZETIA) 10 mg tablet Take 10 mg by mouth every morning. Taking Yes REPATHA SURECLICK 140 mg/mL pen injector INJECT 140 MG UNDER THE SKIN EVERY 2 WEEKS Taking Yes hydrOXYzine HCl (ATARAX) 25 mg tablet Take 25 mg by mouth as needed. Taking Yes omeprazole (PRILOSEC) 40 mg capsule Take 40 mg by mouth as needed. Taking Yes SUMAtriptan (IMITREX) 100 mg tablet Take 100 mg by mouth. Taking Yes esterified estrogens-methylTESTOSTERone (ESTRATEST) 1.25-2.5 mg per tablet Take 1 tablet by mouth once daily. Taking Yes tiZANidine (ZANAFLEX) 4 mg tablet Take 4 mg by mouth as needed. Taking Yes lisdexamfetamine (VYVANSE) 50 mg capsule Take 1 capsule by mouth once daily for 30 days. lisdexamfetamine (VYVANSE) 50 mg capsule Take 1 capsule by mouth once daily for 30 days. Do not start before June 08, 2024. carBAMazepine (TEGRETOL) 200 mg tablet Take 2 tablets by mouth three times daily. Patient not taking: Reported on 05/28/2024 Not Taking No medication comments found. ALLERGIES Allergen Reactions Biaxin [Clarithromy* GI Upset Sutures Rash, Hives, Swelling, Itching Specifically, cat gut sutures Cymbalta [Duloxetin* Swelling Severe abdominal pain Demerol [Meperidine* Vomiting Indomethacin Swelling Had 4+ edema in legs and arms the day after taking a new prescription. Morphine Vomiting Naproxen GI Upset Penicillins Rash, Hives Vancomycin GI Upset Versed [Midazolam H* Vomiting Z Pack [Azithromyci* Rash, GI Upset Objective PHYSICAL EXAM: (if completed, exam performed via video enabled technology) General: alert and oriented and healthy appearance. Pertinent negatives noted - not distressed. Skin: normal color, no rash or lesions. HEENT: EOM intact and pupils equal round. Throat; OROPHARYNX: moist mucus membranes. Neck; full ROM, no cervical LNs noted. Cardiovascular: Pulse characterized as regular.RRR, confirmed with radial pulse exam. Respiratory: Breathing non-labored . Abdomen: Pertinent negatives noted - not tender. Extremities: no deformity, no edema or tenderness, no joint swelling or clubbing. Neurological: normal cognition and motor skills. PAIN ASSESSMENT: VITALS: Ht 5' 0 (1.52m) Wt 125 lb (56.7kg) BMI 24.41 kg/(m^2). Diagnostic tests reviewed for today's visit: Lab Value Units Date High Low HB No results within date range. HCT No results within date range. WBC No results within date range. PLT No results within date range. NA No results within date range. K No results within date range. GLUC No results within date range. BUN No results within date range. CREAT No results within date range. PTSEC No results within date range. INR No results within date range. APTT No results within date range. ALT No results within date range. AST No results within date range. TBILI No results within date range. TSH No results within date range. Lab Value Units Date High Low HCGQT No results within date range. UHCG No results within date range. HCG, BODY* No results within date range. Lab Value Units Date High Low ABORHD No results within date range. ABSCREEN No results within date range. No results found for: HBA1C Recent Results (from the past 8760 hour(s)) ECG COMPLETE Collection Time: 12/16/23 5:24 PM Result Value Ventricular Rate 82 Atrial Rate 82 P-R Interval 126 QRS Duration 82 QT Interval 370 QTC Calculation (Bazett) 432 Calculated P Callery 65 Calculated R Callery 34 Calculated T Callery 30 Impression NORMAL SINUS RHYTHM NORMAL ECG Confirmed by MD CLAUDIA, HEBA ([id number]) on 12/31/2023 2:59:40 PM No results found for this or any previous visit (from the past 35727 hour(s)). Instructions Given to Patient: Instructions located in the after visit summary. Patient given verbal and written preop instructions and voices comprehension and compliance. SIGNATURE: Mirta Gonzalez PA-C PATIENT NAME: Pao Lion DATE: May 28, 2024 TIME: 1:05 PM PAGER/CONTACT #: [facility] History and physical note* Mirta Gonzalez PA-C - 05/28/2024 11:20 AM EDT Images from the original note were not included. [facility] HISTORY AND PHYSICAL EXAMINATION SERVICE DATE: 05/28/2024 SERVICE TIME: 11:10 AM PRIMARY CARE PHYSICIAN: David Mayfield DO Assessment Patient has the following medical conditions which may affect frieda-operative course: Trigeminal neuralgia Assessment: taking carbamazepine PRN, no recent use POTS (postural orthostatic tachycardia syndrome) Assessment: taking DDAVP, following with Cardiology Sleep apnea Assessment: denies, not using CPAP Hypothyroidism Assessment: taking levothyroxine and cytomel, follows with Endo Adrenal insufficiency Assessment: follows with Dr. Jose Laughlin Dyslipidemia Assessment: taking zetia and Repatha Walker Activity Status Index: METS: Climb a flight of stairs or walk up a hill (5.50 METs) DASI Score: 5.5 Patient denies any chest pain or undue shortness of breath with the above physical activity. Clinical Frailty Scale: 4. Apparently vulnerable STOP-Bang Score: Snores loudly Patient over 50 years old Denies feeling tired, fatigued, or sleepy during the daytime Has not been observed to stop breathing or choking/gasping during sleep Denies having high blood pressure BMI less than or equal to 35 kg/m^2 Does not have a large neck Non-male patient STOP-Bang Score: 2 ANESTHESIA FINDINGS: Intubation History: No history of difficult intubation Significant Anesthesia Considerations: potential postop nausea/vomiting Airway History: No history of difficult airway I - PHYSICAL EVALUATION AIRWAY Patient intubated: No. Tracheostomy tube not present Mallampati: III. TM distance: >3 FB. Neck ROM: full ROM without neurological symptoms. Mouth opening: adequate. Short neck: no. Thick neck: no Evans present: no Lip Bite Test: II Microretrognathia/Micronagthia/Recessed Chin: No DENTAL Dental findings: teeth intact. II - ANESTHESIA PLAN Anesthetic plan additional comments: *PACC/TCI - anesthesia choice. Beta Tyree Monitoring Plan Post Procedure Analgesic Plan Prepared for Surgery: optimally prepared for surgery. CONSULTS: The following consults have been initiated at this time: endocrinology (pt will call her Endo, Dr. Eugene, about steroid dosing intraop). Planned Anesthetic: anesthesia choice The Following Tests/Procedures Have Been Initiated: No orders of the defined types were placed in this encounter. This is a virtual visit using PharmaIN video visit. It required patient-provider interaction for themedical decision making as documented below. REASON FOR VISIT: Pao Lion is a 54 year old female who is scheduled for Procedure(s): HEMORRHOIDECTOMY INTERNAL TRANSANAL HEMORRHOIDAL DEARTERIALIZATION, 2 OR MORE HEMORRHOID COLUMNS/GROUPS INCL ULTRASOUND GUIDANCE W/MUCOPEXY WHEN PERFORMED (N/A) at the request of Dr. Ester Cali for consultation. My final recommendation will be communicated back to the requesting physician by way of shared medical record or letter. 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 Intractable Chronic Migraine Without Aura and Without Status Migrainosus Conductive Hearing Loss, Bilateral Tinnitus, Bilateral Cholesteatoma, Middle Ear, Left Pots (Postural Orthostatic Tachycardia Syndrome) Supraventricular Tachycardia (Hcc) COVID-19 Immunization Status Overdue - Covid-19 Vaccine (2022- season) Overdue since 07/19/2023 11/23/2022 Imm Admin: COVID-19 vaccine, age 12+ yr, bivalent (MODERNA) 07/19/2021 Imm Admin: COVID-19 original vaccine, full dose, monovalent (MODERNA) 02/16/2021 Imm Admin: COVID-19 original vaccine, full dose, monovalent (MODERNA) Only the first 3 history entries have been loaded, but more history exists. CHIEF COMPLAINT: Hemorrhoids, unspecified hemorrhoid type HPI: Pao Lion is a 54 year old female who is scheduled for HEMORRHOIDECTOMY INTERNAL TRANSANAL HEMORRHOIDAL DEARTERIALIZATION, 2 OR MORE HEMORRHOID COLUMNS/GROUPS INCL ULTRASOUND GUIDANCE W/MUCOPEXY WHEN PERFORMED at the request of Dr. Ester Cali for 05/29/2024. She reports hemorrhoids for years, but symptoms have worsened over the past 1-2 years. She reports intermittent pain , and episodes in which it is painful to sit down. She denies any bleeding. This is a virtual visit. The visit was conducted using Ph[employer]IN video visit. It required patient-provider interaction for the medical decision making as documented below. I have communicated my name and active licensure. The patient's identity and physical location wereverified at the time of this visit. Either the patient or their legal retail wireless sales representative has been informed of the risks and benefits of and alternatives to treatment through a remote evaluation and consents to proceed with the evaluation remotely. REVIEW OF SYSTEMS: General: No weight loss, malaise or fevers. Neurological: +trigeminal neuralgia Positive for: headaches. Respiratory: Positive for: obstructive sleep apnea and CPAP/BiPAP noncompliant. Negative for: pneumonia within 6 weeks and URI < 2 weeks. Cardiovascular: +POTS +SVT Positive for: arrhythmia and hyperlipidemia Negative for: CAD, chest pain and DVT/PE. GI: See HPI. : No history of dysuria, frequency or incontinence, stones or chronic kidney disease. No difficulty urinating, nocturia > 1 time per night or hematuria. Endocrine: +adrenal insufficiency Positive for: hypothyroidism. Hematology: No history of bleeding or clotting disorder. Patient is not taking anti-coagulation or platelet medications. No history of hematological symptoms or problems. Oncology: No history of CA metastasis, chemo within 30 days, or radiotherapy within 90 days. No history of oncological symptoms or problems. Psych: No history of psychiatric symptoms or problems. Musculoskeletal: Negative for joint pain or swelling, back pain or muscle pain. Skin: Negative for lesions, rash and itching. PAST MEDICAL HISTORY Diagnosis Date Dyslipidemia Fracture Hearing difficulty bilateral bone achored hearing aids - implants Hyperglycemia Hypothyroidism Migraine Narcolepsy Mild Osteopenia PMH - PAST MEDICAL HISTORY OF Thyroid problems PMH - PAST MEDICAL HISTORY OF rt. rotator cuff POTS (postural orthostatic tachycardia syndrome) Radiculopathy lower, right moderate, left mild Sleep apnea Trigeminal neuralgia Left PAST SURGICAL HISTORY Procedure Laterality Date ABDOMINOPLASTY UMBILICAL TRANSPOSITION AND FASCIAL 06/2017 LIG/TRNSXJ FLP TUBE ABDL/VAG APPR UNI/BI PAST SURGICAL HISTORY OF Ear surgery tubes PAST SURGICAL HISTORY OF deviated septum PAST SURGICAL HISTORY OF 2005 hysterectomy, vaginal taping PAST SURGICAL HISTORY OF epideral back injections PAST SURGICAL HISTORY OF Rt. rotator cuff repair PAST SURGICAL HISTORY OF 06/25/2011 IMPLANT OSSEOINTEGRATED IMPLANT TEMPORAL BONE W/ PERC ATTACH TO STIMULATOR W/O MASTOIDECTOMY PAST SURGICAL HISTORY OF 2012 right rotator cuff repair PAST SURGICAL HISTORY OF 2005 ovaries and fallopian tubes removed PAST SURGICAL HISTORY OF 11/2014 Interstim ROTATOR CUFF REPAIR Left TONSILLECTOMY & ADENOIDECTOMY AGE 14/> FAMILY HISTORY Problem Relation Age of Onset Heart Mother TIA Heart Father COPD Father Headache Sister Headache Other niece Cancer Son hodgkins lymphoma Asthma Brother Asthma Daughter Asthma Son Social History Tobacco Use Smoking status: Former Packs/day: 1.00 Years: 18.00 Additional pack years: 0.00 Total pack years: 18.00 Types: Cigarettes Quit date: 09/27/1994 Years since quittin.6 Smokeless tobacco: Never Vaping Use Vaping Use: Never used Substance Use Topics Alcohol use: Not Currently Drug use: No Comment: denies tx for drug/alcohol abuse in the past. Prior to Admission medications as of 05/28/24 1303 Medication Sig Last Dose Taking Milnacipran (SAVELLA) 12.5 mg tab Take 12.5 mg by mouth once daily. Taking Yes XYWAV 0.5 gram/mL soln oral liquid Take 9 mL by mouth at bedtime and 4 hours after. Taking Yes lisdexamfetamine (VYVANSE) 50 mg capsule Take 1 capsule by mouth once daily for 30 days. Do not start before May 09, 2024. Taking Yes keTORolac (TORADOL) 60 mg/2 mL soln INJECT 2ML INTRAMUSCULARLY ONE TIME ONLY FOR 1 DOSE Taking Yes ondansetron (ZOFRAN) 8 mg tablet Take by mouth three times a day as needed. Taking Yes levothyroxine (SYNTHROID) 50 mcg tablet TAKE 1 TABLET BY MOUTH SATURDAY THROUGH SATURDAY. SKIP SATURDAY. Taking Yes dexAMETHasone sodium phosphate (DECADRON) 4 mg/mL injection INJECT 1ML (4MG) INTRAMUSCULARLY EVERY 6 HOURS NEEDED FOR ADRENAL STRESS, USE WHEN VOMITING OR DIARRHEA PREVENTS USE OF THE ORAL DOSE. Taking Yes desmopressin acetate (DDAVP) 0.1 mg tablet Take 0.1 mg by mouth three times daily. Taking Yes liothyronine (CYTOMEL) 5 mcg tablet Take 5 mcg by mouth twice daily. Taking Yes ezetimibe (ZETIA) 10 mg tablet Take 10 mg by mouth every morning. Taking Yes REPATHA SURECLICK 140 mg/mL pen injector INJECT 140 MG UNDER THE SKIN EVERY 2 WEEKS Taking Yes hydrOXYzine HCl (ATARAX) 25 mg tablet Take 25 mg by mouth as needed. Taking Yes omeprazole (PRILOSEC) 40 mg capsule Take 40 mg by mouth as needed. Taking Yes SUMAtriptan (IMITREX) 100 mg tablet Take 100 mg by mouth. Taking Yes esterified estrogens-methylTESTOSTERone (ESTRATEST) 1.25-2.5 mg per tablet Take 1 tablet by mouth once daily. Taking Yes tiZANidine (ZANAFLEX) 4 mg tablet Take 4 mg by mouth as needed. Taking Yes lisdexamfetamine (VYVANSE) 50 mg capsule Take 1 capsule by mouth once daily for 30 days. lisdexamfetamine (VYVANSE) 50 mg capsule Take 1 capsule by mouth once daily for 30 days. Do not start before June 08, 2024. carBAMazepine (TEGRETOL) 200 mg tablet Take 2 tablets by mouth three times daily. Patient not taking: Reported on 05/28/2024 Not Taking No medication comments found. ALLERGIES Allergen Reactions Biaxin [Clarithromy* GI Upset Sutures Rash, Hives, Swelling, Itching Specifically, cat gut sutures Cymbalta [Duloxetin* Swelling Severe abdominal pain Demerol [Meperidine* Vomiting Indomethacin Swelling Had 4+ edema in legs and arms the day after taking a new prescription. Morphine Vomiting Naproxen GI Upset Penicillins Rash, Hives Vancomycin GI Upset Versed [Midazolam H* Vomiting Z Pack [Azithromyci* Rash, GI Upset Objective PHYSICAL EXAM: (if completed, exam performed via video enabled technology) General: alert and oriented and healthy appearance. Pertinent negatives noted - not distressed. Skin: normal color, no rash or lesions. HEENT: EOM intact and pupils equal round. Throat; OROPHARYNX: moist mucus membranes. Neck; full ROM, no cervical LNs noted. Cardiovascular: Pulse characterized as regular.RRR, confirmed with radial pulse exam. Respiratory: Breathing non-labored . Abdomen: Pertinent negatives noted - not tender. Extremities: no deformity, no edema or tenderness, no joint swelling or clubbing. Neurological: normal cognition and motor skills. PAIN ASSESSMENT: VITALS: Ht 5' 0 (1.52m) Wt 125 lb (56.7kg) BMI 24.41 kg/(m^2). Diagnostic tests reviewed for today's visit: Lab Value Units Date High Low HB No results within date range. HCT No results within date range. WBC No results within date range. PLT No results within date range. NA No results within date range. K No results within date range. GLUC No results within date range. BUN No results within date range. CREAT No results within date range. PTSEC No results within date range. INR No results within date range. APTT No results within date range. ALT No results within date range. AST No results within date range. TBILI No results within date range. TSH No results within date range. Lab Value Units Date High Low HCGQT No results within date range. UHCG No results within date range. HCG, BODY* No results within date range. Lab Value Units Date High Low ABORHD No results within date range. ABSCREEN No results within date range. No results found for: HBA1C Recent Results (from the past 8760 hour(s)) ECG COMPLETE Collection Time: 12/16/23 5:24 PM Result Value Ventricular Rate 82 Atrial Rate 82 P-R Interval 126 QRS Duration 82 QT Interval 370 QTC Calculation (Bazett) 432 Calculated P Callery 65 Calculated R Callery 34 Calculated T Callery 30 Impression NORMAL SINUS RHYTHM NORMAL ECG Confirmed by MD CLAUDIA, [facility] ([id number]) on 12/31/2023 2:59:40 PM No results found for this or any previous visit (from the past 25691 hour(s)). Instructions Given to Patient: Instructions located in the after visit summary. Patient given verbal and written preop instructions and voices comprehension and compliance. SIGNATURE: Mirta Gonzalez PA-C PATIENT NAME: Pao Lion DATE: May 28, 2024 TIME: 1:05 PM PAGER/CONTACT #: [facility] in this encounterM[facility] Nurse Note* Samuel Kern RN - 05/26/2024 9:49 AM EDT Education packet given for THD procedure on May 29. Discussed procedure, pre op and post op instructions in detail. She has no questions or concerns at this time. [facility]07-09[facility] Nurse Note* Samuel Kern RN - 05/26/2024 9:49 AM EDT Education packet given for THD procedure on May 29. Discussed procedure, pre op and post op instructions in detail. She has no questions or concerns at this time. documented in this encounterM[facility] History of Present illness Narrative* Ester Cali MD - 05/26/2024 9:20 AM EDT COLORECTAL SURGERY May 26, 2024 Pao Lion Chief Complaint: follow up/ hemorrhoids History of Present Illness: Pao Lion is a 54 year old female presents to the office for a follow up evaluation of hemorrhoids and to discuss the plan of care. She was last seen in the office on 08/01/23. Prior A/P from 08/01/23: Pao Lion is a 53 year old female with symptomatic internal hemorrhoids. Fiber and water Sitz baths Topical hydrocortisone PRN Discussed RBL and THD, expected results and recovery after each. She would be inclined to pursue THD and will call if symptoms worsen and she desires to proceed. Current symptoms: still w/ flares of pain, no bleeding + prolapsing tissue Current bowel habits: occasional alternating diarrhea/constipation Current bowel regimen: colace, increased fiber in diet PAST MEDICAL HISTORY Diagnosis Date Dyslipidemia Fracture Hearing difficulty bilateral bone achored hearing aids - implants Hyperglycemia Hypothyroidism Migraine Narcolepsy Mild Osteopenia PMH - PAST MEDICAL HISTORY OF Thyroid problems PMH - PAST MEDICAL HISTORY OF rt. rotator cuff POTS (postural orthostatic tachycardia syndrome) Radiculopathy lower, right moderate, left mild Sleep apnea Trigeminal neuralgia Left PAST SURGICAL HISTORY Procedure Laterality Date ABDOMINOPLASTY UMBILICAL TRANSPOSITION AND FASCIAL 06/2017 LIG/TRNSXJ FLP TUBE ABDL/VAG APPR UNI/BI PAST SURGICAL HISTORY OF Ear surgery tubes PAST SURGICAL HISTORY OF deviated septum PAST SURGICAL HISTORY OF 2004 hysterectomy, vaginal taping PAST SURGICAL HISTORY OF epideral back injections PAST SURGICAL HISTORY OF Rt. rotator cuff repair PAST SURGICAL HISTORY OF 06/25/2011 IMPLANT OSSEOINTEGRATED IMPLANT TEMPORAL BONE W/ PERC ATTACH TO STIMULATOR W/O MASTOIDECTOMY PAST SURGICAL HISTORY OF 2012 right rotator cuff repair PAST SURGICAL HISTORY OF 2005 ovaries and fallopian tubes removed PAST SURGICAL HISTORY OF 11/2014 Interstim ROTATOR CUFF REPAIR Left TONSILLECTOMY & ADENOIDECTOMY AGE 14/> Current Outpatient Medications Medication Sig Dispense Refill Milnacipran (SAVELLA) 12.5 mg tab Take 12.5 mg by mouth once daily. XYWAV 0.5 gram/mL soln oral liquid Take 9 mL by mouth at bedtime and 4 hours after. 540 mL 5 keTORolac (TORADOL) 60 mg/2 mL soln INJECT 2ML INTRAMUSCULARLY ONE TIME ONLY FOR 1 DOSE 15 mL 3 ondansetron (ZOFRAN) 8 mg tablet Take by mouth three times a day as needed. levothyroxine (SYNTHROID) 50 mcg tablet TAKE 1 TABLET BY MOUTH SATURDAY THROUGH SATURDAY. SKIP SATURDAY. dexAMETHasone sodium phosphate (DECADRON) 4 mg/mL injection INJECT 1ML (4MG) INTRAMUSCULARLY EVERY 6 HOURS NEEDED FOR ADRENAL STRESS, USE WHEN VOMITING OR DIARRHEA PREVENTS USE OF THE ORAL DOSE. desmopressin acetate (DDAVP) 0.1 mg tablet Take 0.1 mg by mouth three times daily. liothyronine (CYTOMEL) 5 mcg tablet Take 5 mcg by mouth twice daily. carBAMazepine (TEGRETOL) 200 mg tablet Take 2 tablets by mouth three times daily. 180 tablet 11 ezetimibe (ZETIA) 10 mg tablet Take 10 mg by mouth every morning. Pregabalin (LYRICA) 200 mg capsule Take 200 mg by mouth twice daily. REPATHA SURECLICK 140 mg/mL pen injector INJECT 140 MG UNDER THE SKIN EVERY 2 WEEKS hydrOXYzine HCl (ATARAX) 25 mg tablet Take 25 mg by mouth as needed. omeprazole (PRILOSEC) 40 mg capsule Take 40 mg by mouth as needed. SUMAtriptan (IMITREX) 100 mg tablet Take 100 mg by mouth. esterified estrogens-methylTESTOSTERone (ESTRATEST) 1.25-2.5 mg per tablet Take 1 tablet by mouth once daily. tiZANidine (ZANAFLEX) 4 mg tablet Take 4 mg by mouth as needed. lisdexamfetamine (VYVANSE) 50 mg capsule Take 1 capsule by mouth once daily for 30 days. 30 capsule0 lisdexamfetamine (VYVANSE) 50 mg capsule Take 1 capsule by mouth once daily for 30 days. Do not start before May 09, 2024. 30 capsule 0 [START ON 06/08/2024] lisdexamfetamine (VYVANSE) 50 mg capsule Take 1 capsule by mouth once daily for 30 days. Do not start before June 08, 2024. 30 capsule 0 lisdexamfetamine (VYVANSE) 50 mg capsule Take 1 capsule by mouth once daily for 30 days. 30 capsule0 No current facility-administered medications for this visit. ALLERGIES Allergen Reactions Biaxin [Clarithromy* GI Upset Sutures Rash, Hives, Swelling, Itching Specifically, cat gut sutures Cymbalta [Duloxetin* Swelling Severe abdominal pain Demerol [Meperidine* Vomiting Indomethacin Swelling Had 4+ edema in legs and arms the day after taking a new prescription. Morphine Vomiting Naproxen GI Upset Penicillins Rash, Hives Vancomycin GI Upset Versed [Midazolam H* Vomiting Z Pack [Azithromyci* Rash, GI Upset FAMILY HISTORY Problem Relation Age of Onset Heart Mother TIA Heart Father COPD Father Headache Sister Headache Other niece Cancer Son hodgkins lymphoma Asthma Brother Asthma Daughter Asthma Son Social History Tobacco Use Smoking status: Former Packs/day: 1.00 Years: 18.00 Additional pack years: 0.00 Total pack years: 18.00 Types: Cigarettes Quit date: 09/27/1994 Years since quittin.6 Smokeless tobacco: Never Vaping Use Vaping Use: Never used Substance Use Topics Alcohol use: Not Currently Drug use: No Comment: denies tx for drug/alcohol abuse in the past. Physical Exam: BP 110/88 (BP Site: Right Arm, BP Position: Sitting) Pulse 86 Ht 154.9 cm (5' 1 ) Wt 56.7 kg (125 lb) SpO2 100% BMI 23.62 kg/m General Appearance: Well appearing, alert, in no acute distress, well-hydrated, well nourished. Abdomen: soft ND NT Anorectal: offered, declined Assessment Assessment and Plan: Pao Lion is a 54 year old female with symptomatic internal hemorrhoids refractory to medicalmanagement. We previously discussed RBL and THD, risks and expected recovery of both. She desires to proceed with THD Continue bowel regimen Medical Decision Making: Data Reviewed: Tests & Documents Reviewed/ordered: Review of prior notes from myself OSH colonoscopy 5 years ago normal per patient, report not available I have discussed Pao Lion's treatment plan and/or results with the patient. I spent a total of 30 minutes on the date of the service which included preparing to see the patient, [id number] patient care, completing clinical documentation, obtaining and/or reviewing separately obtained history, counseling and educating the patient/family/caregiver, ordering medications, elroy ts, or procedures, and care coordination (not separately reported). Ester Cali MD Colorectal Surgery documented in this encounterM[facility]07-[facility] Telephone encounter Note * Telephone Encounter - Samuel Kern RN - 05/19/2024 1:05 PM EDT Our office returned her call and scheduled her an appointment with Dr Cali for another exam before scheduling a procedure. [facility]07-02-[facility] Miscellaneous Notes* Telephone Encounter - Samuel Kern RN - 05/19/2024 1:05 PM EDT Our office returned her call and scheduled her an appointment with Dr Cali for another exam before scheduling a procedure. * Telephone Encounter - Leigha Morin - 05/19/2024 10:53 AM EDT Pao is calling Ester Cali MD today. Saw provider in July 2023. Was to call when wanting to pursue surgery options. Interested in setting up THD procedure. Is this done in office or surgery center? Is this local or under anesthesia? If under anesthesia do they do LMA? Patient has been identified by name and birthdate. Duration of symptoms: N/A Person calling: self VM has a 30 second delay before it will beep to leave a message (this is a spam tyree) - so do not start talking until you hear the beep which will not beep until 30 second delay is over. Feel free to mychart if you would rather. Call patient at: on cell [phone] (home) [phone] (cell) Was an appointment scheduled: No Closing statement: Results or non-symptom based questions: Thank you for calling [facility], your call will be returned within the next business day. Leigha Barron documented in this encounterM[facility]07-02-2024 Telephone encounter Note * Telephone Encounter - Leigha Morin - 05/19/2024 10:53 AM EDT Pao is calling Ester Cali MD today. Saw provider in July 2023. Was to call when wanting to pursue surgery options. Interested in setting up THD procedure. Is this done in office or surgery center? Is this local or under anesthesia? If under anesthesia do they do LMA? Patient has been identified by name and birthdate. Duration of symptoms: N/A Person calling: self VM has a 30 second delay before it will beep to leave a message (this is a spam tyree) - so do not start talking until you hear the beep which will not beep until 30 second delay is over. Feel free to mychart if you would rather. Call patient at: on cell [phone] (home) [phone] (cell) Was an appointment scheduled: No Closing statement: Results or non-symptom based questions: Thank you for calling [facility], your call will be returned within the next business day. Leigha Barron [facility]06-25-2024 Telephone encounter Note* Telephone Encounter - Frannie Lopez RN - 05/12/2024 2:51 PM EDT Last Office Visit 01.06.2024 [facility] 04.09.2024 Follow up 07.09.2024 Assessment & Plan Diagnosis: Narcolepsy with cataplexy (primary encounter diagnosis) Long-term current use of stimulant Narcolepsy without cataplexy Overview: Pao Lion is a 53 year old year old female with a PMH as noted who presents via Virtual Visitfor Narcolepsy with Cataplexy. - Doing fairly well with NT1. - Cataplexy (controlled on Xywav). - Hypnagogic hallucinations, sleep paralysis ,dream enactment behaviors, and drowsy driving currently controled. - Xywav 0.5 gm/ml 45 gm twice nightly (540 ml/30d), last filled on 03/05/24. - Lisdexamfetamine 50 mg qam (#30/30d), last filled 03/03/24. - Denies side effects or adverse reactions. - Compliant and benefiting from treatment. Plan: Narcolepsy: with Cataplexy Medication(s) as ordered. Xywav 0.5 gm/ml 45 gm twice nightly (540 ml/30d), last filled on 03/05/24. Dispense on or after 04/09/24, 05/09/24, 06/08/24. Follow up before 07/08/24. Scripts transmitted. Lisdexamfetamine 50 mg qam (#30/30d), last filled 03/03/24. In accordance with department regulations, in order for controlled substances to be prescribed, youmust be evaluated by a Sleep physician at least once yearly, and must attend at least one in-personvisit per year. Your medications require that you follow-up at least every 3 months for refills. Other requirements for use of controlled substances may include urine tox screenings and EKGs/cardiac evaluations. Last utox: 12/16/23 Urine Tox (+ Amphetamines) results as expected. Last EK12/16/23 NSR, NL ECG Last Sleep physician visit: 01/06/24 Dr Florecita Castellanos. Last in-person visit: 01/06/24 Dr. Drew Castellanos ALL SCHEDULED MED REGULATIONS MET IN 2023. Schedule 3 month follow-up visit with YOLANDA or Sleep MD (virtual or in-person) - she is already scheduled out several follow up visits. Follow up as discussed. I spent a total of 27 minutes. This was a follow up patient to me on the date of the service which included preparing to see the patient, [id number] patient care, completing clinical documentation,counseling and educating the patient/family/caregiver and ordering medications, tests, or procedures. Dariana Stockton APRN.LEAD FABRICATOR [facility]06-25-2024 Miscellaneous Notes* Telephone Encounter - Frannie Lopez RN - 05/12/2024 2:51 PM EDT Last Office Visit 01.06.2024 [facility] 04.09.2024 Follow up 07.09.2024 Assessment & Plan Diagnosis: Narcolepsy with cataplexy (primary encounter diagnosis) Long-term current use of stimulant Narcolepsy without cataplexy Overview: Pao Lion is a 53 year old year old female with a PMH as noted who presents via Virtual Visitfor Narcolepsy with Cataplexy. - Doing fairly well with NT1. - Cataplexy (controlled on Xywav). - Hypnagogic hallucinations, sleep paralysis ,dream enactment behaviors, and drowsy driving currently controled. - Xywav 0.5 gm/ml 45 gm twice nightly (540 ml/30d), last filled on 03/05/24. - Lisdexamfetamine 50 mg qam (#30/30d), last filled 03/03/24. - Denies side effects or adverse reactions. - Compliant and benefiting from treatment. Plan: Narcolepsy: with Cataplexy Medication(s) as ordered. Xywav 0.5 gm/ml 45 gm twice nightly (540 ml/30d), last filled on 03/05/24. Dispense on or after 04/09/24, 05/09/24, 06/08/24. Follow up before 07/08/24. Scripts transmitted. Lisdexamfetamine 50 mg qam (#30/30d), last filled 03/03/24. In accordance with department regulations, in order for controlled substances to be prescribed, youmust be evaluated by a Sleep physician at least once yearly, and must attend at least one in-personvisit per year. Your medications require that you follow-up at least every 3 months for refills. Other requirements for use of controlled substances may include urine tox screenings and EKGs/cardiac evaluations. Last utox: 12/16/23 Urine Tox (+ Amphetamines) results as expected. Last EK12/16/23 NSR, NL ECG Last Sleep physician visit: 01/06/24 Dr Florecita Castellanos. Last in-person visit: 01/06/24 Dr. Drew Castellanos ALL SCHEDULED MED REGULATIONS MET IN 2023. Schedule 3 month follow-up visit with YOLANDA or Sleep MD (virtual or in-person) - she is already scheduled out several follow up visits. Follow up as discussed. I spent a total of 27 minutes. This was a follow up patient to me on the date of the service which included preparing to see the patient, [id number] patient care, completing clinical documentation,counseling and educating the patient/family/caregiver and ordering medications, tests, or procedures. Dariana Stockton APRN.LAURI documented [facility] Telephone encounter Note * Telephone Encounter - Dariana Stockton APRN.CNP - 2024 3:56 PM EDT Summary: Xywav refilled. The following approved medication requests have been transmitted electronically. Requested Prescriptions Signed Prescriptions Disp Refills XYWAV 0.5 gram/mL soln oral liquid 540 mL 5 Sig: Take 9 mL by mouth at bedtime and 4 hours after. Authorizing Provider: DARIANA STOCKTON APRN.CNP PDMP website checked and validated. All prescriptions have been APPROPRIATELY filled. No suspiciousactivity was identified. 2024 by Dariana Stockton APRN.CNP [facility]05-[facility]24 Miscellaneous Notes* Telephone Encounter - Dariana Stockton APRN.LAURI - 2024 3:56 PM EDTSummary: Xywav refilled. The following approved medication requests have been transmitted electronically. Requested Prescriptions Signed Prescriptions Disp Refills XYWAV 0.5 gram/mL soln oral liquid 540 mL 5 Sig: Take 9 mL by mouth at bedtime and 4 hours after. Authorizing Provider: DARIANA STOCKTON APRN.LAURI PDMP website checked and validated. All prescriptions have been APPROPRIATELY filled. No suspiciousactivity was identified. 2024 by Dariana Stockton APRN.LAURI * Telephone Encounter - Nicolas Hernandez - 2024 1:20 PM EDT SLEEP PHONE Name of caller: Pao Lion Relationship to patient : Self In-state or [id number] patient: In-State Was permission obtained from patient? Yes Patient identified by Name and Date of . ( Pao Lion, 1970). Yes Reason for Call : requesting a refill for XYWAV 0.5 gram Number to return call [phone] Okay to leave a message ? Yes documented in this encounterM[facility]05-[facility] Telephone encounter Note * Telephone Encounter - Nicolas Hernandez - 2024 1:20 PM EDT SLEEP PHONE Name of caller: Pao Lion Relationship to patient : Self In-state or [id number] patient: In-State Was permission obtained from patient? Yes Patient identified by Name and Date of . ( Pao Lion, 1970). Yes Reason for Call : requesting a refill for XYWAV 0.5 gram Number to return call [phone] Okay to leave a message ? Yes [facility]05-28-[facility]24 Telephone encounter Note* Telephone Encounter - Kya Elise RN - 04/14/2024 2:13 PM EDT SYLVIE: 10/05/[address] Harry Would you like to see her in person to evaluate her ears, or would you be ok with a virtual? [facility]05-28[facility] Miscellaneous Notes* Telephone Encounter - Kya Elise RN - 04/14/2024 2:13 PM EDT SYLVIE: 10/05/[address] Harry Would you like to see her in person to evaluate her ears, or would you be ok with a virtual? documented in this encounterM[facility]05-23-2024 Instructions* Patient Instructions* Dariana Stockton APRN.LEAD FABRICATOR - 04/09/2024 5:22 PM EDT Patient Instructions: Narcolepsy with Cataplexy: Medication(s) as ordered. Xywav 0.5 gm/ml 45 gm twice nightly (540 ml/30d), last filled on 03/05/24. Dispense on or after 04/09/24, 05/09/24, 06/08/24. Follow up before 07/08/24. Scripts transmitted. Lisdexamfetamine 50 mg qam (#30/30d), last filled 03/03/24. In accordance with department regulations, in order for controlled substances to be prescribed, youmust be evaluated by a Sleep physician at least once yearly, and must attend at least one in-personvisit per year. Your medications require that you follow-up at least every 3 months for refills. Other requirements for use of controlled substances may include urine tox screenings and EKGs/cardiac evaluations. Last utox: 12/16/23 Urine Tox (+ Amphetamines) results as expected. Last EK12/16/23 NSR, NL ECG Last Sleep physician visit: 01/06/24 Dr Florecita Castellanos. Last in-person visit: 01/06/24 Dr. Drew Castellanos ALL SCHEDULED MED REGULATIONS MET IN 2023. Schedule 3 month follow-up visit with YOLANDA or Sleep MD (virtual or in-person) - she is already scheduled out several follow up visits. Eat foods high in protein breakfast and lunch. Avoid anything with Vitamin C until later in the evening to avoid eliminating the medication faster. Follow up as discussed. Dariana Stockton APRN.CNP documented in this encounterM[facility]05-[facility]24 History of Present illness Narrative* Dariana Stockton APRN.CNP - 04/09/2024 5:00 PM EDT Images from the original note were not included. [facility] Virtual Visit Follow Up/ Established Patient Visit PATIENT NAME: Pao Lion [facility] Rules (O.A.C. ): This visit was conducted as a Virtual Visit, with patient's permission, via Zoom. It required patient-provider interaction for the medical decision making as documented below. Patient stated first & last name: Pao Lion Patient stated : 1970 Patient stated current location: [place] [id number] I have communicated my name, Dariana Stockton APRN.CNP, and active licensure Adult Certified Nurse Practitioner in the Sleep Medicine Center at [facility]. The patient's identity and physical location were verified at the time of this visit. Either the patient or their legal retail wireless sales representative has been informed of the risks and benefits of -- and alternatives to -- treatment through a remote evaluation and consents to proceed with the evaluation remotely. Virtual visits are a convenient way for us to meet, but there are some situations in which an in-person evaluation may be required at a later time. I want to check in to confirm your consent to be seen virtually today. Consent given: Yes <Assessment/Plan from LAST VISIT> Date of last visit : 01/06/2024 IMPRESSION: Narcolepsy with cataplexy Clinical Global Impression of Change ( CGI-C) Compared to the patient's condition at baseline, how much has the patient changed? Much improved PLAN: - Continue taking Xywav 4.5 grams twice per night. - Continue taking Vyvanse 50 mg as directed. - Avoid driving when drowsy. 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 - Try to get at least 7-9 hours of sleep in a 24 hour period. Healthy diet and exercise can also promote better sleep. - Follow up in 3 months in the virtual. Recommend scheduling this appointment now to ensure the best time for you. Drew Castellanos MD I spent a total of 20 minutes on the date of the service, which included preparing to see the patient, [id number] patient care, completing clinical documentation, performing a medically appropriateexamination, counseling and educating the patient/family/caregiver, ordering medications, tests, or procedures, communicating results to the patient/family/caregiver, and care coordination (not separately reported). Drew Castellanos MD <End Assessment/Plan from last visit> CURRENT VISIT: 04/09/2024 Interval history: Things are still doing good. I'm getting tired earlier. I'm still much better than I was previously. 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 Follow up visit for Narcolepsy with Cataplexy . Relevant study results reviewed as noted below, if applicable. HYPERSOMNIA : Narcolepsy with Cataplexy Naps: Yes. Number of naps per day: On occasion. Less than 5 minutes. Wakes back up. , Cataplexy: None for a long time. Reports she has always been daupy. Tries to always try to control stress. Hypnagogic hallucinations: None for a long time. Dream enactment behaviors: No Sleep related injuries: No Sleep paralysis: None for a long time. Drowsy driving: No EDS: 13 Current medications: OARRS checked: Yes Name and dose: Vyvanse 50 mg (#30/30d), last filled on 03/03/24 Time taken: upon awakening ~ 0700 Name and dose: Xywav 4.5 gms twice a night (#540/30d), last shipped 03/05/24 Time taken: midnight, [id number] SLEEP HYGIENE QUESTIONS: Bedtime : 0000. Wake up Time : 0700 Time it takes to fall sleep : Quickly. Activities in bed before falling asleep : None Number of times patient wakes up per night : 1 Reason (s) why patient wakes up during the night : Xywav Estimated total sleep time ( in a 24 hour period of time) : 7.0-7.5 Naps : Yes, see above. OTHER RELEVANT LABS AND STUDIES: Hemoglobin Date Value Ref Range Status 02/16/2022 14.8 11.5 - 15.5 g/dL Final 06/23/2020 14.8 11.5 - 15.5 g/dL Final No results found for: FE , TIBC No results found. PATIENT-ENTERED QUESTIONNAIRE SLEEP SCORES 04/02/2024 Sleep Questions Reason for visit: Excessive daytime sleepiness Narcolepsy On average, hours of sleep in 24 hours: 7 Accidents or near accidents due to drowsy drivin 07/04/2023 10/01/2023 04/02/2024 [place] Sleepiness Scale Score 13 (Excessive daytime sleepiness present) 12 (Excessive daytime sleepiness present) 13 (Excessive daytime sleepiness present) 07/04/2023 10/01/2023 04/02/2024 PROMIS CAT Sleep Disturbance PROMIS Sleep Disturbance T-Score 46 (within normal limits) 46 (within normal limits) 44 (within normal limits) PROMIS Sleep Disturbance Percentile 66 66 73 06/27/2020 Insomnia Severity Index Score 28 06/27/2020 07/13/2022 Restless Leg Syndrome Score 16 (Moderate symptoms) 16 (Moderate symptoms) 07/04/2023 10/01/2023 04/02/2024 PHQ-9 Score 1 6 5 5 07/04/2023 10/01/2023 04/02/2024 PROMIS Global Health - (T-Scores - the mean of general population = 50. Five points is a clinicallymeaningful difference.) Physical T-Score 39.8 42.3 39.8 39.8 Mental T-Score 45.8 41.1 45.8 45.8 CURRENT MEDICATIONS: lisdexamfetamine (VYVANSE) 50 mg capsule Take 1 capsule by mouth once daily for 30 days. [START ON 05/09/2024] lisdexamfetamine (VYVANSE) 50 mg capsule Take 1 capsule by mouth once daily for 30 days. Do not start before May 09, 2024. [START ON 06/08/2024] lisdexamfetamine (VYVANSE) 50 mg capsule Take 1 capsule by mouth once daily for 30 days. Do not start before June 08, 2024. keTORolac (TORADOL) 60 mg/2 mL soln INJECT 2ML INTRAMUSCULARLY ONE TIME ONLY FOR 1 DOSE lisdexamfetamine (VYVANSE) 50 mg capsule Take 1 capsule by mouth once daily for 30 days. XYWAV 0.5 gram/mL soln oral liquid ondansetron (ZOFRAN) 8 mg tablet Take by mouth three times a day as needed. levothyroxine (SYNTHROID) 50 mcg tablet TAKE 1 TABLET BY MOUTH SATURDAY THROUGH SATURDAY. SKIP SATURDAY. dexAMETHasone sodium phosphate (DECADRON) 4 mg/mL injection INJECT 1ML (4MG) INTRAMUSCULARLY EVERY 6 HOURS NEEDED FOR ADRENAL STRESS, USE WHEN VOMITING OR DIARRHEA PREVENTS USE OF THE ORAL DOSE. desmopressin acetate (DDAVP) 0.1 mg tablet Take 0.1 mg by mouth three times daily. liothyronine (CYTOMEL) 5 mcg tablet Take 5 mcg by mouth twice daily. carBAMazepine (TEGRETOL) 200 mg tablet Take 2 tablets by mouth three times daily. ezetimibe (ZETIA) 10 mg tablet Take 10 mg by mouth every morning. Pregabalin (LYRICA) 200 mg capsule Take 200 mg by mouth twice daily. REPATHA SURECLICK 140 mg/mL pen injector INJECT 140 MG UNDER THE SKIN EVERY 2 WEEKS hydrOXYzine HCl (ATARAX) 25 mg tablet Take 25 mg by mouth as needed. omeprazole (PRILOSEC) 40 mg capsule Take 40 mg by mouth as needed. SUMAtriptan (IMITREX) 100 mg tablet Take 100 mg by mouth. esterified estrogens-methylTESTOSTERone (ESTRATEST) 1.25-2.5 mg per tablet Take 1 tablet by mouth once daily. tiZANidine (ZANAFLEX) 4 mg tablet Take 4 mg by mouth as needed. Review of Systems Constitutional: Positive for fatigue. Respiratory: Negative. Cardiovascular: Negative. Genitourinary: Negative. Psychiatric: Negative. VITAL SIGNS: Deferred due to virtual visit. PHYSICAL EXAMINATION: Constitutional: Appearance: Well groomed. Well nourished FEMALE. Very pleasant. Neurological: General: No focal deficit present. Mental Status: A&OX3 (person, place, and time). Speech: Clear, projects well. Memory: Intact, responses appropriate. Mood and Affect: Mood normal. Behavior: Behavior normal Assessment & Plan Diagnosis: Narcolepsy with cataplexy (primary encounter diagnosis) Long-term current use of stimulant Narcolepsy without cataplexy Overview: Pao Lion is a 53 year old year old female with a PMH as noted who presents via Virtual Visitfor Narcolepsy with Cataplexy. - Doing fairly well with NT1. - Cataplexy (controlled on Xywav). - Hypnagogic hallucinations, sleep paralysis ,dream enactment behaviors, and drowsy driving currently controled. - Xywav 0.5 gm/ml 45 gm twice nightly (540 ml/30d), last filled on 03/05/24. - Lisdexamfetamine 50 mg qam (#30/30d), last filled 03/03/24. - Denies side effects or adverse reactions. - Compliant and benefiting from treatment. Plan: Narcolepsy: with Cataplexy Medication(s) as ordered. Xywav 0.5 gm/ml 45 gm twice nightly (540 ml/30d), last filled on 03/05/24. Dispense on or after 04/09/24, 05/09/24, 06/08/24. Follow up before 07/08/24. Scripts transmitted. Lisdexamfetamine 50 mg qam (#30/30d), last filled 03/03/24. In accordance with department regulations, in order for controlled substances to be prescribed, youmust be evaluated by a Sleep physician at least once yearly, and must attend at least one in-personvisit per year. Your medications require that you follow-up at least every 3 months for refills. Other requirements for use of controlled substances may include urine tox screenings and EKGs/cardiac evaluations. Last utox: 12/16/23 Urine Tox (+ Amphetamines) results as expected. Last EK12/16/23 NSR, NL ECG Last Sleep physician visit: 2/19/24 Dr Florecita Castellanos. Last in-person visit: 01/06/24 Dr. Drew Castellanos ALL SCHEDULED MED REGULATIONS MET IN 2023. Schedule 3 month follow-up visit with YOLANDA or Sleep MD (virtual or in-person) - she is already scheduled out several follow up visits. Follow up as discussed. I spent a total of 27 minutes. This was a follow up patient to me on the date of the service which included preparing to see the patient, [id number] patient care, completing clinical documentation,counseling and educating the patient/family/caregiver and ordering medications, tests, or procedures. Dariana Stockton APRN.CNP The following approved medication requests have been transmitted electronically. Requested Prescriptions Signed Prescriptions Disp Refills lisdexamfetamine (VYVANSE) 50 mg capsule 30 capsule 0 Sig: Take 1 capsule by mouth once daily for 30 days. lisdexamfetamine (VYVANSE) 50 mg capsule 30 capsule 0 Sig: Take 1 capsule by mouth once daily for 30 days. Do not start before May 09, 2024. lisdexamfetamine (VYVANSE) 50 mg capsule 30 capsule 0 Sig: Take 1 capsule by mouth once daily for 30 days. Do not start before June 08, 2024. Dariana Stockton APRN.CNP PDMP website checked and validated. All prescriptions have been APPROPRIATELY filled. No suspiciousactivity was identified. 04/09/2024 by Dariana Stockton APRN.CNP Activity Duration Chart accessed 23 minutes Current session 4 minutes Total time: 27 minutes documented in this encounterM[facility]05-[facility] History of Present illness Narrative* Palomo Davalos MD - 04/06/2024 4:05 PM EDT Images from the original note were not included. Follow-Up Onabotulinum Toxin A (BotoxTM) for Migraine Indication: Chronic Intractable Migraine Referral Expiration: 11/30/2024 Prior to the initiation of the FIRST treatment with Onabotulinum Toxin A, the patient reported the following average headache frequency over the past 3 MONTHS: Number of moderate-severe migraine days/month: 12 Number of mild migraine days/month: 13 Number of headache free days/month: 5 (120 headache-free hours) After treatment with Onabotulinum Toxin A: Number of moderate-severe migraine days/month: 4 Number of mild migraine days/month: 5 Number of headache free days/month: 21 (504 headache-free hours) Patient reduction in overall migraine days: Yes Patient reduction in moderate-severe migraine days: Yes Patient reduction of headache hours by 100 hours or more: Yes (reduction of 384 hours) Individual has obtained clinical benefit deemed significant by individual or prescriber (Y/N): Yes Patient's quality of life and ability to perform ADLs has improved (Y/N): Yes Wearing off: No The patient has been assessed for disorders which could contribute to breathing or swallowing difficulty, and there is no contraindication with PREEMPT Botox. There is no documented allergic reaction/hypersensitivity to any botulinum toxin and there is no active infection at proposed injection site. HEADACHE SCORES: 02/19/2022 05/28/2022 Headache Questions ER visits since last office visit: 0 0 Hospital stays since last office visit 0 0 Limited ADLs in the last month: 8 Days headache pain free in the last month: 22 Days per month with ALL of the following symptoms - decreased productivity, light sensitivity and nausea: 8 Initial improvement of headache after botox injection at last visit: Very much improved Very much improved PRN medication usage in the last month: 8 Patient impression of improvement since last visit: Very much improved Very much improved 02/19/2022 05/28/2022 HIT-6 HIT-6 64 (Severe impact) Incomplete 02/19/2022 MARIA ESTHER - 2/7 SCORES MARIA ESTHER-2 Score 3 MARIA ESTHER-7 Score 5 07/04/2023 10/01/2023 04/02/2024 PHQ-9 Score 1 6 5 5 BP 101/71 (BP Site: Right Arm, BP Position: Sitting, BP Cuff Size: Regular Adult) Pulse 86 Patient name: Pao Lion : 1970 ALLERGIES Allergen Reactions Biaxin [Clarithromy* GI Upset Sutures Rash, Hives, Swelling, Itching Specifically, cat gut sutures Cymbalta [Duloxetin* Swelling Severe abdominal pain Demerol [Meperidine* Vomiting Indomethacin Swelling Had 4+ edema in legs and arms the day after taking a new prescription. Morphine Vomiting Naproxen GI Upset Penicillins Rash, Hives Vancomycin GI Upset Versed [Midazolam H* Vomiting Z Pack [Azithromyci* Rash, GI Upset UNIVERSAL PROTOCOL / SAFETY CHECKLIST Procedure: Onabotulinum toxin A for migraine Informed Consent Consent Obtained: Written [place] Protocol A moment to CARE was completed SIGN IN Personnel directly involved with the procedure wore the appropriate PPE Special Equipment: N/A Patient/Surrogate Stated/Verified: Patient name, Date of , Relevant allergies and Intended procedure TIME OUT Intended patient and procedure match the source document(s) Consent documented and matches the intended procedure No relevant labs, photos, and/or imaging studies were applicable for review. No correct side/site applicable for marking and visibility. No medications required for procedure. No fire risk assessment and interventions applicable. No implant(s) inserted. SIGN OUT No specimen collected. No instruments, equipment or retained foreign bodies applicable. Post-procedure follow-up management communicated and Plan of Care Visit completed when applicable Written Consent Obtained: Written Injection Sites Left (Units) Left (Sites) Right (Units) Right (Sites) TOTAL (Units) Used Car Make Ready Worker 5 1 5 1 10 Procerus Units: 5 Sites: 1 5 Frontalis 10 2 10 2 20 Temporalis 45 9 40 8 85 Occipitalis 15 3 15 3 30 Cervical PSP 10 2 10 2 20 Trapezius 15 3 15 3 30 Total Units used: 200 Total Units wasted: 0 Prior Therapies Duration of Use Dose Side effect Palomo Davalos MD documented in this encounterM[facility]02-[facility] History of Present illness Narrative* Drew Castellanos MD - 01/06/2024 11:36 AM EST Images from the original note were not included. [facility] Follow up/ Established patient visit Date of last visit : Visit date not found Interval history : Here for follow up for Narcolepsy with cataplexy On Vyvanse 50 mg and Xywav 4.5 grams twice per night Without meds, her fatigue would be 10/10. With these 2-3/10. She denies chest pain, pressure, palpitations, change in blood pressure, new headaches, weight loss, and insomnia. No trouble driving. No cataplexy SLEEP HYGIENE QUESTIONS: Bedtime : MN - 2 AM Wake up Time : 0800 Time it takes to fall sleep : <20 minutes Activities in bed before falling asleep : None Number of times patient wakes up per night : 1 Reason (s) why patient wakes up during the night : Xywav Estimated total sleep time ( in a 24 hour period of time) : 7.0-7.5 Naps : Yes, see above. PATIENT-ENTERED QUESTIONNAIRE SLEEP SCORES Sleep Questions 10/01/2023 Reason for visit: Excessive daytime sleepiness Average hours slept in 24 hours: 7 Accidents or near accidents due to drowsy drivin [place] Sleepiness Scale 04/06/2023 07/04/2023 10/01/2023 Score 15 (present daytime sleepiness) 13 (present daytime sleepiness) 12 (present daytime sleepiness) PROMIS CAT Sleep Disturbance 04/06/2023 07/04/2023 10/01/2023 PROMIS Sleep Disturbance T-Score 42 (within normal limits) 46 (within normal limits) 46 (within normal limits) PROMIS Sleep Disturbance Percentile 79% 66% 66% Insomnia Severity Index 06/27/2020 Score 28 Restless Leg Syndrome 06/27/2020 07/13/2022 Score 16 16 PHQ-9 04/06/2023 07/04/2023 10/01/2023 Score 6 1 6 PROMIS Global Health - (T-Scores - the mean of general population = 50. Five points is a clinicallymeaningful difference.) 01/25/2023 07/04/2023 10/01/2023 Physical T-Score - 39.8 42.3 Mental T-Score 41.1 45.8 41.1 PMH, PSH, SH: No changes SLEEP RELATED ROS Review of Systems ALLERGIES Allergen Reactions Biaxin [Clarithromy* GI Upset Sutures Rash, Hives, Swelling, Itching Specifically, cat gut sutures Cymbalta [Duloxetin* Swelling Severe abdominal pain Demerol [Meperidine* Vomiting Indomethacin Swelling Had 4+ edema in legs and arms the day after taking a new prescription. Morphine Vomiting Naproxen GI Upset Penicillins Rash, Hives Vancomycin GI Upset Versed [Midazolam H* Vomiting Z Pack [Azithromyci* Rash, GI Upset CURRENT MEDICATIONS: XYWAV 0.5 gram/mL soln oral liquid ondansetron (ZOFRAN) 8 mg tablet Take by mouth three times a day as needed. levothyroxine (SYNTHROID) 50 mcg tablet TAKE 1 TABLET BY MOUTH SATURDAY THROUGH SATURDAY. SKIP SATURDAY. keTORolac (TORADOL) 60 mg/2 mL soln INJECT 2ML INTRAMUSCULARLY ONE TIME ONLY FOR 1 DOSE dexAMETHasone sodium phosphate (DECADRON) 4 mg/mL injection INJECT 1ML (4MG) INTRAMUSCULARLY EVERY 6 HOURS NEEDED FOR ADRENAL STRESS, USE WHEN VOMITING OR DIARRHEA PREVENTS USE OF THE ORAL DOSE. buPROPion SR (WELLBUTRIN SR) 100 mg 12 hr tablet bupropion HCl SR 100 mg tablet,12 hr sustained-release lisdexamfetamine (VYVANSE) 50 mg capsule Take 1 capsule by mouth once daily for 90 days. Do not start before November 01, 2023. desmopressin acetate (DDAVP) 0.1 mg tablet Take 0.1 mg by mouth three times daily. liothyronine (CYTOMEL) 5 mcg tablet Take 5 mcg by mouth twice daily. carBAMazepine (TEGRETOL) 200 mg tablet Take 2 tablets by mouth three times daily. ezetimibe (ZETIA) 10 mg tablet Take 10 mg by mouth every morning. Pregabalin (LYRICA) 200 mg capsule Take 200 mg by mouth twice daily. REPATHA SURECLICK 140 mg/mL pen injector INJECT 140 MG UNDER THE SKIN EVERY 2 WEEKS hydrOXYzine HCl (ATARAX) 25 mg tablet Take 25 mg by mouth as needed. omeprazole (PRILOSEC) 40 mg capsule Take 40 mg by mouth as needed. SUMAtriptan (IMITREX) 100 mg tablet Take 100 mg by mouth. esterified estrogens-methylTESTOSTERone (ESTRATEST) 1.25-2.5 mg per tablet Take 1 tablet by mouth once daily. tiZANidine (ZANAFLEX) 4 mg tablet Take 4 mg by mouth as needed. Prior Hypersomnia/Narcolepsy Medications (20 years) Some values may be hidden. Unless noted otherwise, only the newest values recorded on each date aredisplayed. Hypersomnia/Narcolepsy Medications armodafinil (NUVIGIL) 150 mg tab Dose: Take one tablet by mouth upon awakenings Starting date: 07/13/2022 Ending date: 01/25/2023 (Discontinued) lisdexamfetamine (VYVANSE) 30 mg capsule Dose: Take one capsule by mouth upon awakening Starting date: 01/25/2023 Ending date: 02/08/2023 (Discontinued) lisdexamfetamine (VYVANSE) 40 mg capsule Dose: 40 mg DAILY Starting date: 04/10/2023 Ending date: 01/06/2024 (Discontinued) lisdexamfetamine (VYVANSE) 40 mg capsule Dose: 40 mg DAILY Starting date: 05/10/2023 Ending date: 01/06/2024 (Discontinued) lisdexamfetamine (VYVANSE) 40 mg capsule Dose: 40 mg DAILY Starting date: 06/09/2023 Ending date: 01/06/2024 (Discontinued) lisdexamfetamine (VYVANSE) 40 mg capsule Dose: 40 mg DAILY Starting date: 07/05/2023 Ending date: 10/02/2023 (Discontinued) lisdexamfetamine (VYVANSE) 40 mg capsule Dose: 40 mg DAILY Starting date: 08/04/2023 Ending date: 10/02/2023 (Discontinued) lisdexamfetamine (VYVANSE) 40 mg capsule Dose: 40 mg DAILY Starting date: 09/03/2023 Ending date: 10/02/2023 (Discontinued) lisdexamfetamine (VYVANSE) 50 mg capsule Dose: Take one tablet by mouth upon awakening Starting date: 02/08/2023 Ending date: 02/08/2023 (Discontinued) lisdexamfetamine (VYVANSE) 50 mg capsule Dose: 50 mg DAILY (Patient not taking as of 02/22/2023 3:53 PM) Starting date: 02/08/2023 Ending date: 07/05/2023 (Discontinued) lisdexamfetamine (VYVANSE) 50 mg capsule Dose: 50 mg DAILY (Patient has taken differently: Taking as prescribed as of 03/22/2023 9:23 AM, Patient not taking as of 02/22/2023 3:53 PM) Starting date: 03/10/2023 Ending date: 07/05/2023 (Discontinued) lisdexamfetamine (VYVANSE) 50 mg capsule Dose: 50 mg DAILY (Patient not taking as of 02/22/2023 3:53 PM) Starting date: 04/09/2023 Ending date: 07/05/2023 (Discontinued) lisdexamfetamine (VYVANSE) 50 mg capsule Dose: 50 mg DAILY Starting date: 10/02/2023 Ending date: 10/30/2023 (Discontinued) lisdexamfetamine (VYVANSE) 50 mg capsule Dose: 50 mg DAILY Starting date: 11/01/2023 Ending date: 01/30/2024 methylphenidate (RITALIN) 20 mg tablet Dose: Starting date: 07/02/2016 Ending date: 10/19/2016 (Discontinued) methylphenidate 10 mg/9 hr Dose: 1 Patch DAILY wear patch for 9 hours only each day Starting date: 08/11/2012 Ending date: 09/24/2013 (Discontinued) sodium oxybate(XYREM 500 MG/ML ORAL SOLN) Dose: as necessary Starting date: 09/27/2009 Ending date:07/26/2010 (Discontinued) sodium oxybate(XYREM 500 MG/ML ORAL SOLN) Dose: at bedtime Starting date: Ending date: 12/06/2015 (Discontinued) sodium,calcium,mag,pot oxybate (XYWAV) 0.5 gram/mL soln Dose: 4.5 g DAILY Take 2.25g at bed time and second dose (2.25g), two and a half to four hours later. Starting date: 10/18/2020 Ending date: 11/23/2020 (Discontinued) sodium,calcium,mag,pot oxybate (XYWAV) 0.5 gram/mL soln Dose: Take 3 grams at bedtime and second dose (3 grams) two and a half to four hours later for one week, then take 3.75 grams at bedtime and second dose (3.75 grams) two and a half to four hours later for one week, then take 4.5 grams thereafter (9 grams total per night) Starting date: 11/23/2020 Ending date: 05/02/2021 (Discontinued) sodium,calcium,mag,pot oxybate (XYWAV) 0.5 gram/mL soln Dose: Take 4.5 grams at bedtime and 4.5 grams 2.5-4 hours after (9 grams total per night) Starting date: 05/04/2021 Ending date: 10/10/2021 (Discontinued) sodium,calcium,mag,pot oxybate (XYWAV) 0.5 gram/mL soln Dose: Take 4.5 grams at bedtime and 4.5 grams 2.5-4 hours after (9 grams total per night) Starting date: 10/27/2021 Ending date: 04/06/2022 (Discontinued) sodium,calcium,mag,pot oxybate (XYWAV) 0.5 gram/mL soln Dose: Take 4.5 grams at bedtime and 4.5 grams 2.5-4 hours after (9 grams total per night) Starting date: 04/10/2022 Ending date: 04/10/2022 (Discontinued) sodium,calcium,mag,pot oxybate (XYWAV) 0.5 gram/mL soln Dose: Take 4.5 grams at bedtime and 4.5 grams 2.5-4 hours after (9 grams total per night) Starting date: 04/10/2022 Ending date: 09/20/2022 (Discontinued) sodium,calcium,mag,pot oxybate (XYWAV) 0.5 gram/mL soln Dose: Take 4.5 grams at bedtime and 4.5 grams 2.5-4 hours after (9 grams total per night) Starting date: 09/21/2022 Ending date: 10/05/2022 (Discontinued) sodium,calcium,mag,pot oxybate (XYWAV) 0.5 gram/mL soln Dose: Take 4.5 grams at bedtime and 4.5 grams 2.5-4 hours after (9 grams total per night) Starting date: 10/09/2022 Ending date: 10/24/2022 (Discontinued) sodium,calcium,mag,pot oxybate (XYWAV) 0.5 gram/mL soln Dose: Take 4.5 grams at bedtime and 4.5 grams 2.5-4 hours after (9 grams total per night) Starting date: 10/24/2022 Ending date: 03/12/2023 (Discontinued) sodium,calcium,mag,pot oxybate (XYWAV) 0.5 gram/mL soln oral liquid Dose: Take 4.5 grams at bedtimeand 4.5 grams 2.5-4 hours after (9 grams total per night) Starting date: 03/13/2023 Ending date: 08/03/2023 XYWAV 0.5 gram/mL soln oral liquid Dose: Starting date: 12/13/2023 (active) Medication marked as long-term PHYSICAL EXAMINATION: General appearance: NAD Mental status: awake and alert Constitutional: Well groomed Skin: Dry and intact Neuro: Speech fluent Vitals: reviwed IMPRESSION: Narcolepsy with cataplexy Clinical Global Impression of Change ( CGI-C) Compared to the patient's condition at baseline, how much has the patient changed? Much improved PLAN: - Continue taking Xywav 4.5 grams twice per night. - Continue taking Vyvanse 50 mg as directed. - Avoid driving when drowsy. 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 - Try to get at least 7-9 hours of sleep in a 24 hour period. Healthy diet and exercise can also promote better sleep. - Follow up in 3 months in the virtual. Recommend scheduling this appointment now to ensure the best time for you. Drew Castellanos MD I spent a total of 20 minutes on the date of the service, which included preparing to see the patient, [id number] patient care, completing clinical documentation, performing a medically appropriateexamination, counseling and educating the patient/family/caregiver, ordering medications, tests, or procedures, communicating results to the patient/family/caregiver, and care coordination (not separately reported). Drew Castellanos MD documented in [facility] encounterM[facility] History of Present illness Narrative* Francis Garcia MD - 01/03/2024 4:00 PM EST Impression: This is Ms. Pao Lion, a 53 year old female who [facility] for follow-up. Seen October 2023 in the setting of left foot drop. Does excellently on exam today. Recent EMG very reassuring. Impression is for resolved left peroneal neuropathy. Plan: - Follow-up in clinic as needed Francis Garcia MD Staff, [facility] HPI: This is Ms. Pao Lion, a 53 year old female who presents to the [facility] for follow-up. Seen October 2023 in the setting of left foot drop. Review: Initially seen 11/04/2023. This is Ms. Pao Lion, a 53 year old female who presents to the [facility] with multiple complaints, primarily left foot drop. 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 - No clear history of trauma and no obvious clinical etiology. Low threshold for neuromuscular ultrasound after EMG. Today: Just completed EMG 12/30/2023 Extensive electrodiagnostic examination of the left lower extremity and limited examination of the right lower extremity reveals: 1. A common peroneal mononeuropathy, located distal to the nerve branch to the biceps femoris shorthead, and proximal to the deep peroneal branch to the tibialis anterior. This is based on active denervation (fibrillations, positive sharp waves) in the left tibialis anterior, extensor hallucis longus, and extensor digitorum brevis muscles. Normal motor unit morphology and recruitment patterns are noted in the biceps femoris short head, and nerve conduction studies show no abnormal drop across the fibular neck area, no prolongation of latency, and normal conduction velocities. The lesion is axon loss in type, and moderate in degree electrically. The right tibialis anterior was tested for comparison, and d emonstrates normal motor unit morphology, recruitment patterns, and no spontaneous activity noted. 2. There is no EMG evidence of a superimposed lumbosacral motor radiculopathy. 3. There is no EMG evidence of a large fiber, generalized, peripheral neuropathy. Still having some tingling Feels like strength is pretty good Definitely better Almost normal Walking is fine Way better No more falls due to foot drop Still having zaps, pains, and tingling Top of ankle Now constant Stepping, pressure sets it off Squatting makes it worse Gets zaps in lower extremities Especially left leg Has had this for a couple years Progressively worse Happens mostly when still Past history per chart review includes: (Per my 11/04/2023 note) Past medical history, problem list: Dyslipidemia, hearing difficulty, hyperglycemia, hypothyroidism, migraine, narcolepsy, osteopenia, POTS, sleep apnea, trigeminal neuralgia Intractable migraine, chronic daily headache, medication overuse headache, pain disorder Past surgical history: Back injections, rotator cuff repair, InterStim (sacral nerve stimulator) Family history: Headache (sister) TIA (mother) Social history: Former smoker (remote history) OBJECTIVE: PHYSICAL EXAM: Neurological: Mental Status: Alert. Speech fluent. Cranial Nerves: CN IX: No hypophonia. Motor: Similar TA bulk Individual muscle group testing: Right Left Shoulder abduction Elbow flexion Elbow extension Wrist extension Wrist flexion Finger extension Distal finger flexion Thumb abduction Hip flexion Knee extension Knee flexion Approx 5 5 Dorsiflexion 5 5 Ankle inversion 5 5 Ankle eversion 5 5 Plantarflexion See below See below Toe walks. Reflexes: R L Patellar 2 2 Ankle 2 2 Sensation: Intact to touch over lateral leg, dorsum of foot, great toe Gait: Stands with arms crossed. Ambulates easily in the clinic [facility]. Normal, narrow-based gait. Great foot clearance. Normal range arm swing. Turns easily. Toe walks. This note was partially created using voice recognition software and is inherently subject to errors including those of syntax and sound-alike substitutions which may escape proofreading. In such instances, original meaning may be extrapolated by contextual derivation. I spent a total of 36 minutes on the date of the service which included time spent preparing to seethe patient, talking to the patient/documenting in the chart, examining the patient. documented in this encounterM[facility]02-13-[facility] History of Present illness Narrative* Palomo Davalos MD - 12/31/2023 11:17 AM EST Follow-Up Onabotulinum Toxin A (BotoxTM) for Migraine Indication: Chronic Intractable Migraine Referral Expiration: 11/30/2024 Prior to the initiation of the FIRST treatment with Onabotulinum Toxin A, the patient reported the following average headache frequency over the past 3 MONTHS: Number of moderate-severe migraine days/month: 12 Number of mild migraine days/month: 13 Number of headache free days/month: 5 (120 headache-free hours) After treatment with Onabotulinum Toxin A: Number of moderate-severe migraine days/month: 4 Number of mild migraine days/month: 5 Number of headache free days/month: 21 (504 headache-free hours) Patient reduction in overall migraine days: Yes Patient reduction in moderate-severe migraine days: Yes Patient reduction of headache hours by 100 hours or more: Yes (reduction of 384 hours) Individual has obtained clinical benefit deemed significant by individual or prescriber (Y/N): Yes Patient's quality of life and ability to perform ADLs has improved (Y/N): Yes Wearing off: No The patient has been assessed for disorders which could contribute to breathing or swallowing difficulty, and there is no contraindication with PREEMPT Botox. There is no documented allergic reaction/hypersensitivity to any botulinum toxin and there is no active infection at proposed injection site. HEADACHE SCORES: Headache Questions 02/19/2022 05/28/2022 ER visits since last office visit: 0 0 Hospital stays since last office visit 0 0 Limited ADLs in the last month: 8 - Days headache pain free in the last month: 22 - Days per month with ALL of the following symptoms - decreased productivity, light sensitivity and nausea: 8 - Initial improvement of headache after botox injection at last visit: Very much improved Very much improved PRN medication usage in the last month: 8 - Patient impression of improvement since last visit: Very much improved Very much improved HIT-6 02/19/2022 05/28/2022 HIT-6 64 (Severe impact) Incomplete MARIA ESTHER - 2/7 SCORES 02/19/2022 MARIA ESTHER-2 Score 3 MARIA ESTHER-7 Score 5 PHQ-9 04/06/2023 07/04/2023 10/01/2023 Score 6 1 6 BP 123/70 (BP Site: Right Arm, BP Position: Sitting, BP Cuff Size: Small Adult) Pulse 86 Patient name: Pao Lion : 1970 ALLERGIES Allergen Reactions Biaxin [Clarithromy* GI Upset Sutures Rash, Hives, Swelling, Itching Specifically, cat gut sutures Cymbalta [Duloxetin* Swelling Severe abdominal pain Demerol [Meperidine* Vomiting Indomethacin Swelling Had 4+ edema in legs and arms the day after taking a new prescription. Morphine Vomiting Naproxen GI Upset Penicillins Rash, Hives Vancomycin GI Upset Versed [Midazolam H* Vomiting Z Pack [Azithromyci* Rash, GI Upset UNIVERSAL PROTOCOL / SAFETY CHECKLIST Procedure: Onabotulinum toxin A for migraine Informed Consent Consent Obtained: Written [place] Protocol A moment to CARE was completed SIGN IN Personnel directly involved with the procedure wore the appropriate PPE Special Equipment: N/A Patient/Surrogate Stated/Verified: Patient name, Date of , Relevant allergies and Intended procedure TIME OUT Intended patient and procedure match the source document(s) Consent documented and matches the intended procedure No relevant labs, photos, and/or imaging studies were applicable for review. No correct side/site applicable for marking and visibility. No medications required for procedure. No fire risk assessment and interventions applicable. No implant(s) inserted. SIGN OUT No specimen collected. No instruments, equipment or retained foreign bodies applicable. 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 Personnel directly involved with the procedure wore the appropriate PPE (Personal Protective Equipment). Patient/Surrogate Stated/Verified: PATIENT VERIFIED(optional for EMERGENT procedures): Patient name, Date of , Relevant allergies, and The intended procedure Time Out Communication: Intended patient and procedure match the source documents. Consent documented and matches the intended procedure. Sign Out: SIGN OUT (optional for EMERGENT procedures): Post-procedure follow-up management communicated and Plan of Care Visit completed when applicable. MARCIA Barajas.T. Mary Diamond DO documented in this encounterM[facility]11-15-2023 Instructions* Patient Instructions* Dariana Stockton APRN.LEAD FABRICATOR - 10/02/2023 1:08 AM EST Patient Instructions: Narcolepsy: Continue taking current medications as directed. Continue Xywav 0.5 gm/ml (540 ml/30d), last filled on 09/03/23 Increase Lisdexamfetamine 50 mg qam. Dispense one script on or after 10/01/23. Will see how patienttolerates 50 mg dose again. Previously struggled with dry mouth. Will call with an update after which would like to have a 90 day supply. Patient will need to follow up in person with a Sleep MD before 12/30/23 for NT1. Avoid driving when drowsy. 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 Try to get at least 7-9 hours of sleep in a 24 hour period. Healthy diet and exercise can also promote better sleep. In accordance with new regulations, in order for controlled substances to be prescribed, you must be evaluated by a Sleep physician at least once yearly, and must attend at least one in-person visit per year. Your medications require that you follow-up every 3 months for refills. Other requirements for use of controlled substances may include urine tox screenings and EKGs/cardiac evaluations. Get yearly ECG before next office visit. Get yearly tox screening before next office visit. Visit history: 10/01/23 LETTY ridley/ MAXINE 07/05/23 LETTY foster MD 10/24/22 MARY GRACE ridley/ (Dr. Drew Castellanos) Follow up for an In Person Visit in 3 Months with Sleep MD for Narcolepsy with Cataplexybefore 12/30/23. She [place] away from [place]. She would like to get established with another Sleep MD closer to her residence. If you have questions, feel free to send me a VisualOnt message. I spent a total of 24 minutes. This was a new patient to me on the date of the service which included preparing to see the patient, [id number] patient care, completing clinical documentation, counseling and educating the patient/family/caregiver and ordering medications, tests, or procedures. Dariana Stockton APRN.LAURI Following up for your Disorder: Symptoms of narcolepsy, idiopathic hypersomnia and other central nervous system (INSPECTOR MULTIFOCAL LENS) hypersomnia disorders can be effectively treated with several types of medications, many of which require frequent monitoring by a healthcare provider. At [facility], we want to ensurethat your symptoms are well managed so that you can enjoy the best quality of life possible. Several medications are approved by the Food and Drug Administration (FDA) for the treatment of narcolepsy and one medication is approved for the treatment of idiopathic hypersomnia. Therefore, it iscommon practice to use some alerting medications off-label which means that insurance coverage is variable. Most are controlled substances, meaning that their use is monitored closely by pharmacies and governmental agencies. Some have interactions with other commonly used medications, including oral contraceptives and antidepressants. Regular follow- up with your sleep provider is required. If youare taking medications for hypersomnia, contact your sleep provider before starting other prescribed medications. Always keep your medication in a safe place, out of reach of children, teens and pets. A blood pressure measurement is required at every follow-up visit. You may set up a compatible blood pressure monitoring device that allows you to submit your readings from home to your healthcare provider through My Chart. Ask your provider for more information. Medications: There are three main classes of medication approved for the treatment of excessive sleepiness associated with narcolepsy: stimulant medications, non- stimulant wake-promoting medications and sodium/lower sodium oxybates. Sodium/lower sodium oxybates and pitolisant, a newer wake promoting agent, are a lso approved for cataplexy in people with narcolepsy. Stimulant Medications: Stimulants include methylphenidate (Ritalin, Concerta, Metadate, Daytrana, Quillivant, Quillichew),dexmethylphenidate (Focalin), and amphetamine derivatives (Adderall, Desoxyn, Methadine, Vyvanse, Zendeti). Due to side effects and the potential for dependence, follow-up with your sleep provider is required every 3 months including one in-person visit per year. This includes an annual visit with your sleep physician and quarterly visits with a sleep advanced practice provider as well as periodic urine and EKG monitoring. Non-stimulant Wake-promoting Medications: Non-stimulant wake-promoting medications include modafinil (Provigil) and armodafinil (Nuvigil) andtwo new agents FDA-approved in 2019, solriamfetol (Sunosi) and pitolisant (Wakix). Modafinil, armodafinil and solriamfetol are also approved for excessive sleepiness in people with obstructive sleep apnea on CPAP, and modafinil and armodafinil for excessive sleepiness in shift work sleep disorder. For more information about the newest treatments, see www.sunosi.com and www.wakix.com. Pitolisant requires a special prescription referral form sent by your sleep provider to a specialty pharmacy. While side effects may also occur with these agents, the risks are less than with stimulant medications. and follow-up with your sleep provider is required every 6 months including one in-person visit per year. This includes an annual visit with your sleep physician and a mid-year visit with a sleep advanced practice provider. Periodic urine and EKG monitoring may be recommended depended on the typeof medication being prescribed. Oxybate Salts: Sodium oxybate (Xyrem) and lower-sodium oxybate (Xywav) are FDA-approved medications for excessive sleepiness and cataplexy in narcolepsy. Xywav was FDA- approved in 2019 and contains over 90% less sodium than Xyrem with the same degree of effectiveness. Both Xyrem and Xywav are liquids taken at bedtime and again during the night. Xyrem/Xywav are salts of gamma hydroxybutyrate (GHB), an illegal drug with serious side effects. While Xyrem/Xywav are not GHB, they should not be taken with other CNSdepressants including opioid analgesics, benzodiazepines, sedating antidepressants, antipsychotics,sedating anti-seizure medicines, general anesthetics, muscle relaxants, alcohol or street drugs dueto the risk of serious medical problems. When taken as prescribed, oxybate salts have lower potential for physical or psychological dependence than stimulant medications. Prescriptions are filed by [facility] through the Xyrem/Xywav REMS Program. For more information, see www.[employer].[place] or www.ehealthtracker.[place], respectively. Follow-up with your sleep provider is required every 6 months including one in-person visit per year. This includes an annual visit with your sleep physician and a mid-year visit with a sleep advanced practice provider. Periodic urine and EKG monitoring may be recommended. If you reside outside the [facility] [place], please discuss follow-up visit and prescription recommendations with your sleep physician as controlled substance regulations vary by state. If you miss your regularly scheduled appointments, you will need to make an appointment with a sleep advanced practice provider before refills will be approved. Non-medication Treatments: Non-pharmalogical treatments should be combined with medications to improve daytime sleepiness in narcolepsy, idiopathic hypersomnia, and other forms of hypersomnia. These including daytime naps, consistent sleep schedules, strategic caffeine, good sleep hygiene, avoidance of alcohol, sedating medications, recreational drugs and sleep deprivation and treatment of co-existing sleep disorders. Social support is important in managing the psychological difficulties associated with hypersomnia disorders and some people require educational and/or work accommodations. Cognitive behavioral therapy (CBT) with an experienced psychologist is helpful in managing psychosocial challenges and maintaining good sleep habits. Scheduling Information: - Any appointments can be scheduled through the central scheduling system for the [facility] at [phone]. - [facility] offers direct scheduling for patients to schedule appointments. -Virtual visits are also available. If not covered by your insurance, there is a 35% discount. Please contact your insurance to determine coverage. For refills: - If you are receiving a controlled substance, you will need to see a sleep physician at least onceper year. - In [place] ( Medications then Request Renewals ) - Call the office at [phone], option #5 for provider questions. For any other questions: - Contact your visit provider via [employer] ( Inbox & Sent Messages then Send a message ) for thequickest response. - Call the office at [phone], option #5 for provider questions. [facility] website: [email or web address] documented in this encounterMarietta [facility] Clinic11-14-2023 History of Present illness Narrative* Dariana Stockton APRN.CNP - 10/01/2023 5:30 PM EST Images from the original note were not included. [facility] [place] Virtual Visit Follow Up/ Established Patient Visit PATIENT NAME: Pao Lion [facility] Rules (O.A.C. ): This visit was conducted as a Virtual Visit, with patient's permission, via Zoom. It required patient-provider interaction for the medical decision making as documented below. Patient stated first & last name: Pao Lion Patient stated : 1970 Patient stated current location: [facility] [id number] I have communicated my name, Dariana Stockton APRN.CNP, and active licensure Adult Certified Nurse Practitioner in the Sleep Medicine Center at [facility]. The patient's identity and physical location were verified at the time of this visit. Either the patient or their legal retail wireless sales representative has been informed of the risks and benefits of -- and alternatives to -- treatment through a remote evaluation and consents to proceed with the evaluation remotely. Virtual visits are a convenient way for us to meet, but there are some situations in which an in-person evaluation may be required at a later time. I want to check in to confirm your consent to be seen virtually today. Consent given: Yes Assessment/Plan from LAST VISIT: Date of last visit : 07/05/2023 IMPRESSION: Narcolepsy with Cataplexy Clinical Global Impression of Change ( CGI-C) Compared to the patient's condition at baseline, how much has the patient changed? Much improved PLAN: - Continue taking Vyvanse 40 mg (1) per day as directed. - Continue taking Xywav 4.5 grams twice per night as directed. - Avoid driving when drowsy. 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 - Try to get at least 7-9 hours of sleep in a 24 hour period. Healthy diet and exercise can also promote better sleep. - Follow up in 3 months in the office. Recommend scheduling this appointment now to ensure the besttime for you. Drew Castellanos MD I spent a total of 20 minutes on the date of the service, which included preparing to see the patient, [id number] patient care, completing clinical documentation, performing a medically appropriateexamination, counseling and educating the patient/family/caregiver, ordering medications, tests, or procedures, communicating results to the patient/family/caregiver, and care coordination (not separately reported). Drew Castellanos MD <End Assessment/Plan from last visit> CURRENT VISIT: 10/01/2023 Interval history: Doing well on Vyvanse 40 mg qam (dry mouth) and Xywav. Follow up visit for Narcolepsy with Cataplexy. Relevant study results reviewed as noted below, if applicable. HYPERSOMNIA : Narcolepsy with Cataplexy Naps: Yes. Number of naps per day: 1-2 times/day, Timing of naps: 5-15 minutes, Nap duration: may or may not be refilled. Cataplexy: No Hypnagogic hallucinations: No, not in a long time. Dream enactment behaviors: No, not in a long time. Sleep related injuries: No, not in a long time. Drowsy driving: No, not in a long time. Keeps short distances. Current medications: OARRS checked: Yes Xywav 0.5 gm/ml (540 ml/30d), last filled on 09/03/23 First dose of midnight. Falls asleep 20-30 minutes. Second dose 2.5-3 hours later. Almost immediately. No morning hang over effect. Lisdexamfetamine 40 mg qam (#30/30d), last filled on 09/01/23 Taken at 0730-090. Wears off about around 1600. No crashing. No side effects or adverse events. No insomnia or tremors. Weight is stable ~ 120 pounds. Treatment history: SLEEP HYGIENE QUESTIONS: Bedtime : Midnight Wake up Time : 2908-8525 Time it takes to fall sleep : <20 minutes Activities in bed before falling asleep : None Number of times patient wakes up per night : 1 Reason (s) why patient wakes up during the night : Xywav Estimated total sleep time ( in a 24 hour period of time) : 7.0-7.5 Naps : Yes, see above. OTHER RELEVANT LABS AND STUDIES: Hemoglobin Date Value Ref Range Status 02/16/2022 14.8 11.5 - 15.5 g/dL Final 06/23/2020 14.8 11.5 - 15.5 g/dL Final No results found for: FE , TIBC PATIENT-ENTERED QUESTIONNAIRE SLEEP SCORES Sleep Questions 10/01/2023 Reason for visit: Excessive daytime sleepiness Average hours slept in 24 hours: 7 Accidents or near accidents due to drowsy drivin [place] Sleepiness Scale 04/06/2023 07/04/2023 10/01/2023 Score 15 (present daytime sleepiness) 13 (present daytime sleepiness) 12 (present daytime sleepiness) PROMIS CAT Sleep Disturbance 04/06/2023 07/04/2023 10/01/2023 PROMIS Sleep Disturbance T-Score 42 (within normal limits) 46 (within normal limits) 46 (within normal limits) PROMIS Sleep Disturbance Percentile 79 % 66 % 66 % Insomnia Severity Index 06/27/2020 Score 28 Restless Leg Syndrome 06/27/2020 07/13/2022 Score 16 16 PHQ-9 04/06/2023 07/04/2023 10/01/2023 Score 6 1 6 PROMIS Global Health - (T-Scores - the mean of general population = 50. Five points is a clinicallymeaningful difference.) 01/25/2023 07/04/2023 10/01/2023 Physical T-Score - 39.8 42.3 Mental T-Score 41.1 45.8 41.1 CURRENT MEDICATIONS: lisdexamfetamine (VYVANSE) 50 mg capsule Take 1 capsule by mouth once daily for 30 days. lisdexamfetamine (VYVANSE) 40 mg capsule Take 1 capsule by mouth once daily for 30 days. lisdexamfetamine (VYVANSE) 40 mg capsule Take 1 capsule by mouth once daily for 30 days. Do not start before May 10, 2023. lisdexamfetamine (VYVANSE) 40 mg capsule Take 1 capsule by mouth once daily for 30 days. Do not start before June 09, 2023. desmopressin acetate (DDAVP) 0.1 mg tablet Take 0.1 mg by mouth three times daily. liothyronine (CYTOMEL) 5 mcg tablet Take 5 mcg by mouth twice daily. carBAMazepine (TEGRETOL) 200 mg tablet Take 2 tablets by mouth three times daily. pregabalin (LYRICA) 50 mg capsule Take 4 capsules by mouth twice daily for 30 days. ezetimibe (ZETIA) 10 mg tablet Take 10 mg by mouth every morning. Pregabalin (LYRICA) 200 mg capsule Take 200 mg by mouth twice daily. REPATHA SURECLICK 140 mg/mL pen injector INJECT 140 MG UNDER THE SKIN EVERY 2 WEEKS hydrOXYzine HCl (ATARAX) 25 mg tablet Take 25 mg by mouth as needed. omeprazole (PRILOSEC) 40 mg capsule Take 40 mg by mouth as needed. SUMAtriptan (IMITREX) 100 mg tablet Take 100 mg by mouth. esterified estrogens-methylTESTOSTERone (ESTRATEST) 1.25-2.5 mg per tablet Take 1 tablet by mouth once daily. tiZANidine (ZANAFLEX) 4 mg tablet Take 4 mg by mouth as needed. Prior Hypersomnia/Narcolepsy Medications (20 years) Some values may be hidden. Unless noted otherwise, only the newest values recorded on each date aredisplayed. Hypersomnia/Narcolepsy Medications armodafinil (NUVIGIL) 150 mg tab Dose: Take one tablet by mouth upon awakenings Starting date: 07/13/2022 Ending date: 01/25/2023 (Discontinued) lisdexamfetamine (VYVANSE) 30 mg capsule Dose: Take one capsule by mouth upon awakening Starting date: 01/25/2023 Ending date: 02/08/2023 (Discontinued) lisdexamfetamine (VYVANSE) 40 mg capsule Dose: 40 mg DAILY Starting date: 04/10/2023 Ending date: 05/10/2023 lisdexamfetamine (VYVANSE) 40 mg capsule Dose: 40 mg DAILY Starting date: 05/10/2023 Ending date: 06/09/2023 lisdexamfetamine (VYVANSE) 40 mg capsule Dose: 40 mg DAILY Starting date: 06/09/2023 Ending date: 07/09/2023 lisdexamfetamine (VYVANSE) 40 mg capsule Dose: 40 mg DAILY Starting date: 07/05/2023 Ending date: 10/02/2023 (Discontinued) lisdexamfetamine (VYVANSE) 40 mg capsule Dose: 40 mg DAILY Starting date: 08/04/2023 Ending date: 10/02/2023 (Discontinued) lisdexamfetamine (VYVANSE) 40 mg capsule Dose: 40 mg DAILY Starting date: 09/03/2023 Ending date: 10/02/2023 (Discontinued) lisdexamfetamine (VYVANSE) 50 mg capsule Dose: Take one tablet by mouth upon awakening Starting date: 02/08/2023 Ending date: 02/08/2023 (Discontinued) lisdexamfetamine (VYVANSE) 50 mg capsule Dose: 50 mg DAILY (Patient not taking as of 02/22/2023 3:53 PM) Starting date: 02/08/2023 Ending date: 07/05/2023 (Discontinued) lisdexamfetamine (VYVANSE) 50 mg capsule Dose: 50 mg DAILY (Patient has taken differently: Taking as prescribed as of 03/22/2023 9:23 AM, Patient not taking as of 02/22/2023 3:53 PM) Starting date: 03/10/2023 Ending date: 07/05/2023 (Discontinued) lisdexamfetamine (VYVANSE) 50 mg capsule Dose: 50 mg DAILY (Patient not taking as of 02/22/2023 3:53 PM) Starting date: 04/09/2023 Ending date: 07/05/2023 (Discontinued) lisdexamfetamine (VYVANSE) 50 mg capsule Dose: 50 mg DAILY Starting date: 10/02/2023 Ending date: 11/01/2023 methylphenidate (RITALIN) 20 mg tablet Dose: Starting date: 07/02/2016 Ending date: 10/19/2016 (Discontinued) methylphenidate 10 mg/9 hr Dose: 1 Patch DAILY wear patch for 9 hours only each day Starting date: 08/11/2012 Ending date: 09/24/2013 (Discontinued) sodium oxybate(XYREM 500 MG/ML ORAL SOLN) Dose: as necessary Starting date: 09/27/2009 Ending date:07/26/2010 (Discontinued) sodium oxybate(XYREM 500 MG/ML ORAL SOLN) Dose: at bedtime Starting date: Ending date: 12/06/2015 (Discontinued) sodium,calcium,mag,pot oxybate (XYWAV) 0.5 gram/mL soln Dose: 4.5 g DAILY Take 2.25g at bed time and second dose (2.25g), two and a half to four hours later. Starting date: 10/18/2020 Ending date: 11/23/2020 (Discontinued) sodium,calcium,mag,pot oxybate (XYWAV) 0.5 gram/mL soln Dose: Take 3 grams at bedtime and second dose (3 grams) two and a half to four hours later for one week, then take 3.75 grams at bedtime and second dose (3.75 grams) two and a half to four hours later for one week, then take 4.5 grams thereafter (9 grams total per night) Starting date: 11/23/2020 Ending date: 05/02/2021 (Discontinued) sodium,calcium,mag,pot oxybate (XYWAV) 0.5 gram/mL soln Dose: Take 4.5 grams at bedtime and 4.5 grams 2.5-4 hours after (9 grams total per night) Starting date: 05/04/2021 Ending date: 10/10/2021 (Discontinued) sodium,calcium,mag,pot oxybate (XYWAV) 0.5 gram/mL soln Dose: Take 4.5 grams at bedtime and 4.5 grams 2.5-4 hours after (9 grams total per night) Starting date: 10/27/2021 Ending date: 04/06/2022 (Discontinued) sodium,calcium,mag,pot oxybate (XYWAV) 0.5 gram/mL soln Dose: Take 4.5 grams at bedtime and 4.5 grams 2.5-4 hours after (9 grams total per night) Starting date: 04/10/2022 Ending date: 04/10/2022 (Discontinued) sodium,calcium,mag,pot oxybate (XYWAV) 0.5 gram/mL soln Dose: Take 4.5 grams at bedtime and 4.5 grams 2.5-4 hours after (9 grams total per night) Starting date: 04/10/2022 Ending date: 09/20/2022 (Discontinued) sodium,calcium,mag,pot oxybate (XYWAV) 0.5 gram/mL soln Dose: Take 4.5 grams at bedtime and 4.5 grams 2.5-4 hours after (9 grams total per night) Starting date: 09/21/2022 Ending date: 10/05/2022 (Discontinued) sodium,calcium,mag,pot oxybate (XYWAV) 0.5 gram/mL soln Dose: Take 4.5 grams at bedtime and 4.5 grams 2.5-4 hours after (9 grams total per night) Starting date: 10/09/2022 Ending date: 10/24/2022 (Discontinued) sodium,calcium,mag,pot oxybate (XYWAV) 0.5 gram/mL soln Dose: Take 4.5 grams at bedtime and 4.5 grams 2.5-4 hours after (9 grams total per night) Starting date: 10/24/2022 Ending date: 03/12/2023 (Discontinued) sodium,calcium,mag,pot oxybate (XYWAV) 0.5 gram/mL soln oral liquid Dose: Take 4.5 grams at bedtimeand 4.5 grams 2.5-4 hours after (9 grams total per night) Starting date: 03/13/2023 Ending date: 08/03/2023 Medication marked as long-term Prior RLS Medications (last 20 years) Some values may be hidden. Unless noted otherwise, only the newest values recorded on each date aredisplayed. RLS Medications acetaminophen-hydrocodone (VICODIN) 5-500 mg ORAL per tablet Dose: Take two tablets prn for migraine headache Starting date: Ending date: 06/20/2011 (Discontinued) acetaminophen-hydrocodone (VICODIN) 5-500 mg ORAL per tablet Dose: 1-2 tab every 6 hours as needed for pain Starting date: 12/28/2010 Ending date: 06/20/2011 (Discontinued) acetaminophen-hydrocodone (VICODIN) 5-500 mg ORAL tablet Dose: 1-2 tablet EVERY 6 HOURS NEEDED Starting date: 06/25/2011 Ending date: 04/03/2012 (Discontinued) FENTANYL 50 mcg/hr TRANSDERM. Dose: Starting date: 02/20/2011 Ending date: 06/20/2011 (Discontinued) fentaNYL (DURAGESIC) 50 mcg/hr Dose: 1 Patch EVERY 72 HOURS Starting date: Ending date: 10/29/2013 (Discontinued) FENTANYL 75 mcg/hr TRANSDERM. Dose: Starting date: 02/07/2011 Ending date: 06/20/2011 (Discontinued) fentaNYL 75 mcg/hr Dose: 1 Patch EVERY 72 HOURS Starting date: Ending date: 08/12/2014 (Discontinued) HYDROcodone-Acetaminophen (VICODIN) 5-300 mg tab Dose: 2 tablet NEEDED Starting date: Ending date: 08/12/2014 (Discontinued) HYDROcodone-acetaminophen 5-325 mg per tablet Dose: 1 tablet EVERY 6 HOURS NEEDED Starting date:Ending date: 08/12/2014 (Discontinued) HYDROcodone-acetaminophen (NORCO) 5-325 mg per tablet Dose: Starting date: 07/02/2016 Ending date: 10/19/2016 (Discontinued) HYDROcodone-acetaminophen (NORCO) 5-325 mg per tablet Dose: 1 tablet EVERY 8 HOURS NEEDED pain not well controlled by tylenol Starting date: 06/08/2019 Ending date: 06/11/2019 HYDROCODONE-ACETAMINOPHEN 7.5-650 mg ORAL per tablet Dose: Starting date: 01/26/2011 Ending date: 06/25/2011 (Discontinued) HYDROmorphone 0.2 mg injection (DILAUDID) Dose: 0.2 mg EVERY 2 HOURS NEEDED Caution: Hydromorphone is 5 - 7 times MORE POTENT than morphine. For example: Hydromorphone 1mg IV = morphine 7mg IV Starting date: 12/15/2015 Ending date: 12/15/2015 (Discontinued) HYDROmorphone 0.2 mg injection (DILAUDID) Dose: 0.2 mg NEEDED can be given as often as every 10 minutes to a max dose of 4 mg SECOND LINE THERAPY Up to every 10 minutes to Total Dose of 4 mg USE FOR MODERATE PAIN ONLY IF PATIENT IS UNABLE TO TOLERATE ORAL THERAPY Starting date: 06/08/2019 Ending date: 06/08/2019 (Discontinued) HYDROmorphone 0.2 mg injection (DILAUDID) Dose: 0.2 mg EVERY 3 HOURS NEEDED Caution: Hydromorphone is 5 - 7 times MORE POTENT than morphine. For example: Hydromorphone 1mg IV = morphine 7mg IV Starting date: 04/09/2012 Ending date: 04/10/2012 (Discontinued) meperidine (PF) 12.5 mg injection (DEMEROL) Dose: 12.5 mg NEEDED for shivering May Repeat 12.5 mg in 10 minutes X1 for Continued Shivering Starting date: 06/08/2019 Ending date: 06/08/2019 (Discontinued) oxyCODONE immediate release 5-10 mg tab(s) (PERCOLONE) Dose: 5-10 mg EVERY 3 HOURS NEEDED Starting date: 12/15/2015 Ending date: 12/16/2015 (Discontinued) oxyCODONE IR 5 mg tab(s) (ROXICODONE) Dose: 5 mg X (PACU ONLY) PRN Starting date: 08/18/2018 Ending date: 08/18/2018 oxyCODONE IR 5 mg tab(s) (ROXICODONE) Dose: 5 mg NEEDED Starting date: 06/08/2019 Ending date: 06/08/2019 oxyCODONE immediate release (PERCOLONE) 5 mg immediate release tablet Dose: 5-10 mg EVERY 3 HOURS NEEDED Starting date: 12/16/2015 Ending date: 01/20/2016 (Discontinued) traMADOL 100 mg tab(s) (ULTRAM) Dose: 100 mg EVERY 4 HOURS NEEDED Starting date: 04/09/2012 Ending date: 04/10/2012 (Discontinued) traMADol 50 mg tab(s) (ULTRAM) Dose: 50 mg EVERY 6 HOURS MAX RECOMMENDED DOSE = 400 MG/24 HRS, (300MG/24HRS if pt greater than 75 years old. Starting date: 12/15/2015 Ending date: 12/16/2015 (Discontinued) TRAMADOL 50 MG TAB Dose: as necessary Starting date: 05/31/2010 Ending date: 06/25/2011 (Discontinued) traMADol (ULTRAM) 50 mg tablet Dose: 50 mg EVERY 6 HOURS NEEDED Starting date: Ending date: 12/23/2017 (Discontinued) TRAMADOL HCL (ULTRAM ORAL) Dose: 100 mg NEEDED Starting date: Ending date: 09/24/2013 (Discontinued) VICODIN 5/500 TABLET Dose: as necessary Starting date: 10/23/2004 Ending date: 05/31/2010 (Discontinued) Prior Insomnia Medications (last 20 years) Some values may be hidden. Unless noted otherwise, only the newest values recorded on each date aredisplayed. Insomnia Medications diazepam 5 mg tab(s) (VALIUM) Dose: 5 mg 3 TIMES DAILY NEEDED in case of pain Starting date: 12/15/2015 Ending date: 12/15/2015 (Discontinued) diazepam 5 mg tab(s) (VALIUM) Dose: 5 mg EVERY 6 HOURS Starting date: 12/16/2015 Ending date: 12/16/2015 (Discontinued) diazepam (VALIUM) 5 mg tablet Dose: 5 mg AT BEDTIME NEEDED Starting date: 08/11/2012 Ending date:09/24/2013 (Discontinued) diazepam (VALIUM) 5 mg tablet Dose: 5 mg EVERY 6 HOURS NEEDED Muscle spasm (Patient not taking as of 06/06/2018 4:12 PM, Patient has taken differently, 5 mg AT BEDTIME as of 09/03/2017 3:16 PM) Starting date: 12/16/2015 Ending date: 08/06/2018 (Discontinued) Zolpidem (AMBIEN CR) 12.5 mg CR tablet Dose: 12.5 mg AT BEDTIME NEEDED Starting date: Ending date: 09/27/2015 (Discontinued) Zolpidem (AMBIEN CR) 12.5 mg CR tablet Dose: 12.5 mg AT BEDTIME NEEDED Starting date: Ending date: 12/06/2015 (Discontinued) zolpidem 5 mg tab(s) (AMBIEN) Dose: 5 mg AT BEDTIME NEEDED Starting date: 04/09/2012 Ending date:04/10/2012 (Discontinued) ZOLPIDEM TARTRATE (AMBIEN ORAL) Dose: 12.5 mg AT BEDTIME NEEDED Starting date: Ending date: 12/23/2017 (Discontinued) Review of Systems Constitutional: Positive for fatigue. Respiratory: Negative. Cardiovascular: Negative. Genitourinary: Negative. VITAL SIGNS: Deferred due to virtual visit. PHYSICAL EXAMINATION: Constitutional: Appearance: Well groomed. Well nourished FEMALE. Very pleasant. Neurological: General: No focal deficit present. Mental Status: A&OX3 (person, place, and time). Speech: Clear, projects well. Memory: Intact, responses appropriate. Mood and Affect: Mood normal. Behavior: Behavior normal Assessment & Plan IMPRESSION/PLAN: Diagnosis: Narcolepsy with cataplexy (primary encounter diagnosis) Long-term current use of stimulant Overview: Pao Lion is a 53 year old year old female with a PMH as noted who presents via Virtual Visitfor Narcolepsy with Cataplexy. - Doing fairly well with NT1. No Cataplexy (controlled on Xywav). - Hypnagogic hallucinations, dream enactment behaviors, sleep related injuries, and drowsy driving have not occurred in a long time. - Taking short little naps. - Xywav 0.5 gm/ml (540 ml/30d), last filled on 09/03/23 - Lisdexamfetamine 40 mg qam (#30/30d), last filled 09/01/23. Taken ~0730-090. Wears off ~ 1600. Nocrashing. Previously on 50 mg but struggled with dry mouth. She would like to try it again. We agreed to try it X 1 month. She will call me with an update. - Denies side effects or adverse reactions. No insomnia or tremors. Weight is stable ~ 120 pounds. - Compliant and benefiting from treatment. - Needs yearly ECG and Urine Tox Screen. Plan: Narcolepsy: Continue taking current medications as directed. Continue Xywav 0.5 gm/ml (540 ml/30d), last filled on 09/03/23 Increase Lisdexamfetamine 50 mg qam. Dispense one script on or after 10/01/23. Will see how patienttolerates 50 mg dose again. Previously struggled with dry mouth. Will call with an update after which would like to have a 90 day supply. Patient will need to follow up in person with a Sleep MD before 12/30/23 for NT1. Avoid driving when drowsy. 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 Try to get at least 7-9 hours of sleep in a 24 hour period. Healthy diet and exercise can also promote better sleep. In accordance with new regulations, in order for controlled substances to be prescribed, you must be evaluated by a Sleep physician at least once yearly, and must attend at least one in-person visit per year. Your medications require that you follow-up every 3 months for refills. Other requirements for use of controlled substances may include urine tox screenings and EKGs/cardiac evaluations. Get yearly ECG before next office visit. Get yearly tox screening before next office visit. Visit history: 10/01/23 LETTY foster APRN 07/05/23 LETTY ridley/ 10/24/22 MARY GRACE [place]/ (Dr. Drew Castellanos) Follow up for an In Person Visit in 3 Months with Sleep MD for Narcolepsy with Cataplexybefore 12/30/23. She [place] hours away from [place]. She would like to get established with another Sleep MD closer to her residence. The following approved medication requests have been transmitted electronically. Requested Prescriptions Signed Prescriptions Disp Refills lisdexamfetamine (VYVANSE) 50 mg capsule 30 capsule 0 Sig: Take 1 capsule by mouth once daily for 30 days. Dariana Stockton APRN.CNP PDMP website checked and validated. All prescriptions have been APPROPRIATELY filled. No suspiciousactivity was identified. 10/02/2023 by Dariana Stockton APRN.LAURI [facility] pharmacy in [facility]. If you have questions, feel free to send me a [employer] message. I spent a total of 24 minutes. This was a new patient to me on the date of the service which included preparing to see the patient, [id number] patient care, completing clinical documentation, counseling and educating the patient/family/caregiver and ordering medications, tests, or procedures. Dariana Stockton APRN.CNP Activity Duration Chart accessed 24 minutes Total time: 24 minutes* *Based only on time spent in the patient's chart documented in this [facility]23 Miscellaneous Notes* Telephone Encounter - Courtney Lo MA - 09/10/2023 1:34 PM EDT In response to telephone call from [facility] pharmacy for verbal refill on the patients Xywav medication. She is on Xywav 0.5 gm/ml solution oral liquid. She is taking 4.5 gm at bedtime and 4.5 gm two hours later. She is on 9 gm total nightly. This was give dis. One month with refills times [address] Castellanos's prescriptions. Marc ANDRADE. documented in this encounterMarietta [facility]09-14-2023 History of Present illness Narrative* Ester Cali MD - 08/01/2023 3:00 PM EDT COLORECTAL SURGERY August 01, 2023 Pao Lion Chief Complaint: hemorrhoids History of Present Illness: Pao Lion is a 53 year old female presents to the office for evaluation of hemorrhoids. Recent diverticulitis, took oral antibiotics. Has previously been on chronic steroids for adrenal insufficiency, but is currently not on any. They cause colitis symptoms Duration of symptoms: 5 years, this year has been the worse Bleeding? no Prolapse? Yes, requires manual depression Anorectal pain? Yes, not currently Seepage? no Stool consistency: loose or soft Time in bathroom for BM: 1min Pushing and straining? no Prior meds for constipation: rarely required stool softners Current meds for constipation: no Topical meds: hydrocortisone, suppositories Antiplatelet or AC medication: no Colonoscopy- has had a few for chronic colitis and diverticulosis. Thinks last one was within 3-5 years. [facility] was her last colonoscopy location. Never polyps no family h/o CRC or IBD PAST MEDICAL HISTORY Diagnosis Date Dyslipidemia Fracture Hearing difficulty bilateral bone achored hearing aids - implants Hyperglycemia Hypothyroidism Migraine Narcolepsy Mild Osteopenia PMH - PAST MEDICAL HISTORY OF Thyroid problems PMH - PAST MEDICAL HISTORY OF rt. rotator cuff POTS (postural orthostatic tachycardia syndrome) Radiculopathy lower, right moderate, left mild Sleep apnea Trigeminal neuralgia Left PAST SURGICAL HISTORY Procedure Laterality Date ABDOMINOPLASTY UMBILICAL TRANSPOSITION AND FASCIAL 06/2017 LIG/TRNSXJ FLP TUBE ABDL/VAG APPR UNI/BI PAST SURGICAL HISTORY OF Ear surgery tubes PAST SURGICAL HISTORY OF deviated septum PAST SURGICAL HISTORY OF 2004 hysterectomy, vaginal taping PAST SURGICAL HISTORY OF epideral back injections PAST SURGICAL HISTORY OF Rt. rotator cuff repair PAST SURGICAL HISTORY OF 06/25/2011 IMPLANT OSSEOINTEGRATED IMPLANT TEMPORAL BONE W/ PERC ATTACH TO STIMULATOR W/O MASTOIDECTOMY PAST SURGICAL HISTORY OF 2012 right rotator cuff repair PAST SURGICAL HISTORY OF 2005 ovaries and fallopian tubes removed PAST SURGICAL HISTORY OF 11/2014 Interstim ROTATOR CUFF REPAIR Left TONSILLECTOMY & ADENOIDECTOMY AGE 14/> Current Outpatient Medications Medication Sig Dispense Refill lisdexamfetamine (VYVANSE) 40 mg capsule Take 1 capsule by mouth once daily for 30 days. 30 capsule0 [START ON 08/04/2023] lisdexamfetamine (VYVANSE) 40 mg capsule Take 1 capsule by mouth once daily for 30 days. Do not start before August 04, 2023. 30 capsule 0 [START ON 09/03/2023] lisdexamfetamine (VYVANSE) 40 mg capsule Take 1 capsule by mouth once daily for 30 days. Do not start before September 03, 2023. 30 capsule 0 sodium,calcium,mag,pot oxybate (XYWAV) 0.5 gram/mL soln oral liquid Take 4.5 grams at bedtime and 4.5 grams 2.5-4 hours after (9 grams total per night) 270 mL 5 desmopressin acetate (DDAVP) 0.1 mg tablet Take 0.1 mg by mouth three times daily. liothyronine (CYTOMEL) 5 mcg tablet Take 5 mcg by mouth twice daily. carBAMazepine (TEGRETOL) 200 mg tablet Take 2 tablets by mouth three times daily. 180 tablet 11 ezetimibe (ZETIA) 10 mg tablet Take 10 mg by mouth every morning. Pregabalin (LYRICA) 200 mg capsule Take 200 mg by mouth twice daily. REPATHA SURECLICK 140 mg/mL pen injector INJECT 140 MG UNDER THE SKIN EVERY 2 WEEKS hydrOXYzine HCl (ATARAX) 25 mg tablet Take 25 mg by mouth as needed. omeprazole (PRILOSEC) 40 mg capsule Take 40 mg by mouth as needed. SUMAtriptan (IMITREX) 100 mg tablet Take 100 mg by mouth. esterified estrogens-methylTESTOSTERone (ESTRATEST) 1.25-2.5 mg per tablet Take 1 tablet by mouth once daily. tiZANidine (ZANAFLEX) 4 mg tablet Take 4 mg by mouth as needed. lisdexamfetamine (VYVANSE) 40 mg capsule Take 1 capsule by mouth once daily for 30 days. 30 capsule0 lisdexamfetamine (VYVANSE) 40 mg capsule Take 1 capsule by mouth once daily for 30 days. Do not start before May 10, 2023. 30 capsule 0 lisdexamfetamine (VYVANSE) 40 mg capsule Take 1 capsule by mouth once daily for 30 days. Do not start before June 09, 2023. 30 capsule 0 pregabalin (LYRICA) 50 mg capsule Take 4 capsules by mouth twice daily for 30 days. 240 capsule 1 No current facility-administered medications for this visit. ALLERGIES Allergen Reactions Biaxin [Clarithromy* GI Upset Sutures Rash, Hives, Swelling, Itching Specifically, cat gut sutures Cymbalta [Duloxetin* Swelling Severe abdominal pain Demerol [Meperidine* Vomiting Indomethacin Swelling Had 4+ edema in legs and arms the day after taking a new prescription. Morphine Vomiting Naproxen GI Upset Penicillins Rash, Hives Vancomycin GI Upset Versed [Midazolam H* Vomiting Z Pack [Azithromyci* Rash, GI Upset FAMILY HISTORY Problem Relation Age of Onset Heart Mother TIA Heart Father COPD Father Headache Sister Headache Other niece Cancer Son hodgkins lymphoma Asthma Brother Asthma Daughter Asthma Son Social History Tobacco Use Smoking status: Former Packs/day: 1.00 Years: 18.00 Additional pack years: 0.00 Total pack years: 18.00 Types: Cigarettes Quit date: 09/27/1994 Years since quittin.8 Smokeless tobacco: Never Vaping Use Vaping Use: Never used Substance Use Topics Alcohol use: Not Currently Drug use: No Comment: denies tx for drug/alcohol abuse in the past. Physical Exam: BP 105/66 Pulse 76 Ht 154.9 cm (5' 1 ) Wt 55.8 kg (123 lb) BMI 23.24 kg/m General Appearance: Well appearing, alert, in no acute distress, well-hydrated, well nourished. Abdomen: soft ND NT Anorectal: External exam reveals normal/mildly enlarged external hemorrhoid tissue all locations nothrombosis. 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 After digital exam with a lubricated finger, the scope was easily inserted. Moderately enlarged right posterior and minimally enlarged LL and RA internal hemorrhoids were noted. RP w/ stigmata of bleeding. Otherwise normal mucosa was noted. Anoscopy completed. Assessment Assessment and Plan: Pao Lion is a 53 year old female with symptomatic internal hemorrhoids. Fiber and water Sitz baths Topical hydrocortisone PRN Discussed RBL and THD, expected results and recovery after each. She would be inclined to pursue THD and will call if symptoms worsen and she desires to proceed. Medical Decision Making: Data Reviewed: Tests & Documents Reviewed/ordered: None I have discussed Pao Lion's treatment plan and/or results with the patient. I spent a total of 40 minutes on the date of the service which included preparing to see the patient, [id number] patient care, completing clinical documentation, obtaining and/or reviewing separately obtained history, performing a medically appropriate examination, and counseling and educating the patient/family/caregiver. Ester Cali MD Colorectal Surgery documented in this encounter[facility] History of Present illness Narrative* Palomo Davalos MD - 07/23/2023 1:52 PM EDT Follow-Up Onabotulinum Toxin A (BotoxTM) for Migraine Indication: Chronic Intractable Migraine Referral Expiration: 05/16/2024 Prior to the initiation of the FIRST treatment with Onabotulinum Toxin A, the patient reported the following average headache frequency over the past 3 MONTHS: Number of moderate-severe migraine days/month: 12 Number of mild migraine days/month: 13 Number of headache free days/month: 5 (120 headache-free hours) After treatment with Onabotulinum Toxin A: Number of moderate-severe migraine days/month: 4 Number of mild migraine days/month: 5 Number of headache free days/month: 21 (504 headache-free hours) Patient reduction in overall migraine days: Yes Patient reduction in moderate-severe migraine days: Yes Patient reduction of headache hours by 100 hours or more: Yes (reduction of 384 hours) Individual has obtained clinical benefit deemed significant by individual or prescriber (Y/N): Yes Patient's quality of life and ability to perform ADLs has improved (Y/N): Yes Wearing off: No The patient has been assessed for disorders which could contribute to breathing or swallowing difficulty, and there is no contraindication with PREEMPT Botox. There is no documented allergic reaction/hypersensitivity to any botulinum toxin and there is no active infection at proposed injection site. HEADACHE SCORES: Headache Questions 02/19/2022 05/28/2022 ER visits since last office visit: 0 0 Hospital stays since last office visit 0 0 Limited ADLs in the last month: 8 - Days headache pain free in the last month: 22 - Days per month with ALL of the following symptoms - decreased productivity, light sensitivity and nausea: 8 - Initial improvement of headache after botox injection at last visit: Very much improved Very much improved PRN medication usage in the last month: 8 - Patient impression of improvement since last visit: Very much improved Very much improved HIT-6 02/19/2022 05/28/2022 HIT-6 64 (Severe impact) Incomplete MARIA ESTHER - 2/7 SCORES 02/19/2022 MARIA ESTHER-2 Score 3 MARIA ESTHER-7 Score 5 PHQ-9 01/25/2023 04/06/2023 07/04/2023 Score 10 6 1 BP 128/80 (BP Site: Right Arm, BP Position: Sitting, BP Cuff Size: Regular Adult) Pulse 85 Patient name: Pao Lion : 1970 ALLERGIES Allergen Reactions Biaxin [Clarithromy* GI Upset Sutures Rash, Hives, Swelling, Itching Specifically, cat gut sutures Cymbalta [Duloxetin* Swelling Severe abdominal pain Demerol [Meperidine* Vomiting Indomethacin Swelling Had 4+ edema in legs and arms the day after taking a new prescription. Morphine Vomiting Naproxen GI Upset Penicillins Rash, Hives Vancomycin GI Upset Versed [Midazolam H* Vomiting Z Pack [Azithromyci* Rash, GI Upset UNIVERSAL PROTOCOL / SAFETY CHECKLIST Procedure: Onabotulinum toxin A for migraine Informed Consent Consent Obtained: Written [place] Protocol A moment to CARE was completed SIGN IN Personnel directly involved with the procedure wore the appropriate PPE Special Equipment: N/A Patient/Surrogate Stated/Verified: Patient name, Date of , Relevant allergies and Intended procedure TIME OUT Intended patient and procedure match the source document(s) Consent documented and matches the intended procedure No relevant labs, photos, and/or imaging studies were applicable for review. No correct side/site applicable for marking and visibility. No medications required for procedure. No fire risk assessment and interventions applicable. No implant(s) inserted. SIGN OUT No specimen collected. No instruments, equipment or retained foreign bodies applicable. Post-procedure follow-up management communicated and Plan of Care Visit completed when applicable Written Consent Obtained: Written Injection Sites Left (Units) Left (Sites) Right (Units) Right (Sites) TOTAL (Units) Used Car Make Ready Worker 5 1 5 1 10 Procerus Units: 5 Sites: 1 5 Frontalis 10 2 10 2 20 Temporalis 45 9 40 8 85 Occipitalis 15 3 15 3 30 Cervical PSP 10 2 10 2 20 Trapezius 15 3 15 3 30 Total Units used: 200 Total Units wasted: 0 Prior Therapies Duration of Use Dose Side effect Palomo Davalos MD documented in this encounter[facility] History of Present illness Narrative* Drew Castellanos MD - 07/05/2023 11:54 AM EDT Images from the original note were not included. [facility] Follow up/ Established patient visit Date of last visit : Visit date not found I have communicated my name and active licensure. The patient's identity and physical location wereverified at the time of this visit. 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 No ADR She is taking Xywav 4.5 grams twice per night. Without medications: fatigue is 10/10. With these medications 5/10 No problems driving short distance No cataplexy SLEEP HYGIENE QUESTIONS: Bedtime : MN Wake up Time : 7 am Time it takes to fall sleep : < 20 minutes Activities in bed before falling asleep : None Number of times patient wakes up per night : 1 Reason (s) why patient wakes up during the night : for medication Estimated total sleep time ( in a 24 hour period of time) : 7.5 to 8 hours Naps : Rare - 15 min - when sedentary PATIENT-ENTERED QUESTIONNAIRE SLEEP SCORES Sleep Questions 07/04/2023 Reason for visit: Excessive daytime sleepiness, Narcolepsy Average hours slept in 24 hours: - Accidents or near accidents due to drowsy drivin [place] Sleepiness Scale 01/25/2023 04/06/2023 07/04/2023 Score 13 (present daytime sleepiness) 15 (present daytime sleepiness) 13 (present daytime sleepiness) PROMIS CAT Sleep Disturbance 01/25/2023 04/06/2023 07/04/2023 PROMIS Sleep Disturbance T-Score 47 (within normal limits) 42 (within normal limits) 46 (within normal limits) PROMIS Sleep Disturbance Percentile 62 % 79 % 66 % Insomnia Severity Index 06/27/2020 Score 28 Restless Leg Syndrome 06/27/2020 07/13/2022 Score 16 16 PHQ-9 01/25/2023 04/06/2023 07/04/2023 Score 10 6 1 PROMIS Global Health - (T-Scores - the mean of general population = 50. Five points is a clinicallymeaningful difference.) 07/13/2022 01/25/2023 07/04/2023 Physical T-Score 32.4 - 39.8 Mental T-Score 33.8 41.1 45.8 PMH, PSH, SH: Diagnosed with Diverticulitis SLEEP RELATED ROS Review of Systems ALLERGIES Allergen Reactions Biaxin [Clarithromy* GI Upset Sutures Rash, Hives, Swelling, Itching Specifically, cat gut sutures Cymbalta [Duloxetin* Swelling Severe abdominal pain Demerol [Meperidine* Vomiting Indomethacin Swelling Had 4+ edema in legs and arms the day after taking a new prescription. Morphine Vomiting Naproxen GI Upset Penicillins Rash, Hives Vancomycin GI Upset Versed [Midazolam H* Vomiting Z Pack [Azithromyci* Rash, GI Upset CURRENT MEDICATIONS: ciprofloxacin HCl (CIPRO) 500 mg tablet Take 500 mg by mouth twice daily. Twice daily for 10 days. Started Saturday per patient lisdexamfetamine (VYVANSE) 40 mg capsule Take 1 capsule by mouth once daily for 30 days. lisdexamfetamine (VYVANSE) 40 mg capsule Take 1 capsule by mouth once daily for 30 days. Do not start before May 10, 2023. lisdexamfetamine (VYVANSE) 40 mg capsule Take 1 capsule by mouth once daily for 30 days. Do not start before June 09, 2023. levothyroxine (SYNTHROID) 50 mcg tablet Take 50 mcg by mouth every morning. sodium,calcium,mag,pot oxybate (XYWAV) 0.5 gram/mL soln oral liquid Take 4.5 grams at bedtime and 4.5 grams 2.5-4 hours after (9 grams total per night) lisdexamfetamine (VYVANSE) 50 mg capsule Take 1 capsule by mouth once daily for 30 days. (Patient not taking: Reported on 02/22/2023) lisdexamfetamine (VYVANSE) 50 mg capsule Take 1 capsule by mouth once daily for 30 days. Do not start before March 10, 2023. lisdexamfetamine (VYVANSE) 50 mg capsule Take 1 capsule by mouth once daily for 30 days. Do not start before April 09, 2023. (Patient not taking: Reported on 02/22/2023 Do not start before April 09, 2023.) desmopressin acetate (DDAVP) 0.1 mg tablet Take 0.1 mg by mouth three times daily. liothyronine (CYTOMEL) 5 mcg tablet Take 5 mcg by mouth twice daily. carBAMazepine (TEGRETOL) 200 mg tablet Take 2 tablets by mouth three times daily. pregabalin (LYRICA) 50 mg capsule Take 4 capsules by mouth twice daily for 30 days. ezetimibe (ZETIA) 10 mg tablet Take 10 mg by mouth every morning. carBAMazepine XR (TEGRETOL XR) 200 mg 12 hr tablet Take 1 tablet by mouth twice daily. Pregabalin (LYRICA) 200 mg capsule Take 200 mg by mouth twice daily. REPATHA SURECLICK 140 mg/mL pen injector INJECT 140 MG UNDER THE SKIN EVERY 2 WEEKS hydrOXYzine HCl (ATARAX) 25 mg tablet Take 25 mg by mouth as needed. omeprazole (PRILOSEC) 40 mg capsule Take 40 mg by mouth as needed. SUMAtriptan (IMITREX) 100 mg tablet Take 100 mg by mouth. esterified estrogens-methylTESTOSTERone (ESTRATEST) 1.25-2.5 mg per tablet Take 1 tablet by mouth once daily. tiZANidine (ZANAFLEX) 4 mg tablet Take 4 mg by mouth as needed. Prior Hypersomnia/Narcolepsy Medications (20 years) Some values may be hidden. Unless noted otherwise, only the newest values recorded on each date aredisplayed. Hypersomnia/Narcolepsy Medications armodafinil (NUVIGIL) 150 mg tab Dose: Take one tablet by mouth upon awakenings Starting date: 07/13/2022 Ending date: 01/25/2023 (Discontinued) lisdexamfetamine (VYVANSE) 30 mg capsule Dose: Take one capsule by mouth upon awakening Starting date: 01/25/2023 Ending date: 02/08/2023 (Discontinued) lisdexamfetamine (VYVANSE) 40 mg capsule Dose: 40 mg DAILY Starting date: 04/10/2023 Ending date: 05/10/2023 lisdexamfetamine (VYVANSE) 40 mg capsule Dose: 40 mg DAILY Starting date: 05/10/2023 Ending date: 06/09/2023 lisdexamfetamine (VYVANSE) 40 mg capsule Dose: 40 mg DAILY Starting date: 06/09/2023 Ending date: 07/09/2023 lisdexamfetamine (VYVANSE) 50 mg capsule Dose: Take one tablet by mouth upon awakening Starting date: 02/08/2023 Ending date: 02/08/2023 (Discontinued) lisdexamfetamine (VYVANSE) 50 mg capsule Dose: 50 mg DAILY (Patient not taking as of 02/22/2023 3:53 PM) Starting date: 02/08/2023 Ending date: 03/10/2023 lisdexamfetamine (VYVANSE) 50 mg capsule Dose: 50 mg DAILY (Patient has taken differently: Taking as prescribed as of 03/22/2023 9:23 AM, Patient not taking as of 02/22/2023 3:53 PM) Starting date: 03/10/2023 Ending date: 04/09/2023 lisdexamfetamine (VYVANSE) 50 mg capsule Dose: 50 mg DAILY (Patient not taking as of 02/22/2023 3:53 PM) Starting date: 04/09/2023 Ending date: 05/09/2023 methylphenidate (RITALIN) 20 mg tablet Dose: Starting date: 07/02/2016 Ending date: 10/19/2016 (Discontinued) methylphenidate 10 mg/9 hr Dose: 1 Patch DAILY wear patch for 9 hours only each day Starting date: 08/11/2012 Ending date: 09/24/2013 (Discontinued) sodium oxybate(XYREM 500 MG/ML ORAL SOLN) Dose: as necessary Starting date: 09/27/2009 Ending date:07/26/2010 (Discontinued) sodium oxybate(XYREM 500 MG/ML ORAL SOLN) Dose: at bedtime Starting date: Ending date: 12/06/2015 (Discontinued) sodium,calcium,mag,pot oxybate (XYWAV) 0.5 gram/mL soln Dose: 4.5 g DAILY Take 2.25g at bed time and second dose (2.25g), two and a half to four hours later. Starting date: 10/18/2020 Ending date: 11/23/2020 (Discontinued) sodium,calcium,mag,pot oxybate (XYWAV) 0.5 gram/mL soln Dose: Take 3 grams at bedtime and second dose (3 grams) two and a half to four hours later for one week, then take 3.75 grams at bedtime and second dose (3.75 grams) two and a half to four hours later for one week, then take 4.5 grams thereafter (9 grams total per night) Starting date: 11/23/2020 Ending date: 05/02/2021 (Discontinued) sodium,calcium,mag,pot oxybate (XYWAV) 0.5 gram/mL soln Dose: Take 4.5 grams at bedtime and 4.5 grams 2.5-4 hours after (9 grams total per night) Starting date: 05/04/2021 Ending date: 10/10/2021 (Discontinued) sodium,calcium,mag,pot oxybate (XYWAV) 0.5 gram/mL soln Dose: Take 4.5 grams at bedtime and 4.5 grams 2.5-4 hours after (9 grams total per night) Starting date: 10/27/2021 Ending date: 04/06/2022 (Discontinued) sodium,calcium,mag,pot oxybate (XYWAV) 0.5 gram/mL soln Dose: Take 4.5 grams at bedtime and 4.5 grams 2.5-4 hours after (9 grams total per night) Starting date: 04/10/2022 Ending date: 04/10/2022 (Discontinued) sodium,calcium,mag,pot oxybate (XYWAV) 0.5 gram/mL soln Dose: Take 4.5 grams at bedtime and 4.5 grams 2.5-4 hours after (9 grams total per night) Starting date: 04/10/2022 Ending date: 09/20/2022 (Discontinued) sodium,calcium,mag,pot oxybate (XYWAV) 0.5 gram/mL soln Dose: Take 4.5 grams at bedtime and 4.5 grams 2.5-4 hours after (9 grams total per night) Starting date: 09/21/2022 Ending date: 10/05/2022 (Discontinued) sodium,calcium,mag,pot oxybate (XYWAV) 0.5 gram/mL soln Dose: Take 4.5 grams at bedtime and 4.5 grams 2.5-4 hours after (9 grams total per night) Starting date: 10/09/2022 Ending date: 10/24/2022 (Discontinued) sodium,calcium,mag,pot oxybate (XYWAV) 0.5 gram/mL soln Dose: Take 4.5 grams at bedtime and 4.5 grams 2.5-4 hours after (9 grams total per night) Starting date: 10/24/2022 Ending date: 03/12/2023 (Discontinued) sodium,calcium,mag,pot oxybate (XYWAV) 0.5 gram/mL soln oral liquid Dose: Take 4.5 grams at bedtimeand 4.5 grams 2.5-4 hours after (9 grams total per night) Starting date: 03/13/2023 Ending date: 08/03/2023 Medication marked as long-term PHYSICAL EXAMINATION: Vital Signs: Review General appearance: NAD Mental status: awake and alert Constitutional: Well groomed Skin: Dry and intact Neuro: Speech fluent IMPRESSION: Narcolepsy with Cataplexy Clinical Global Impression of Change ( CGI-C) Compared to the patient's condition at baseline, how much has the patient changed? Much improved PLAN: - Continue taking Vyvanse 40 mg (1) per day as directed. - Continue taking Xywav 4.5 grams twice per night as directed. - Avoid driving when drowsy. 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 - Try to get at least 7-9 hours of sleep in a 24 hour period. Healthy diet and exercise can also promote better sleep. - Follow up in 3 months in the office. Recommend scheduling this appointment now to ensure the besttime for you. Drew Castellanos MD I spent a total of 20 minutes on the date of the service, which included preparing to see the patient, [id number] patient care, completing clinical documentation, performing a medically appropriateexamination, counseling and educating the patient/family/caregiver, ordering medications, tests, or procedures, communicating results to the patient/family/caregiver, and care coordination (not separately reported). Drew Castellanos MD documented in this [facility]05-[facility] Miscellaneous Notes* Telephone Encounter - Luly Suarez RN - 03/22/2023 10:39 AM EDT Botox referral sent to pharmacy. Luly Suarez RN * Telephone Encounter - Luly Suarez RN - 03/22/2023 10:39 AM EDT ----- Message from Osei Nunez sent at 03/22/2023 9:53 AM EDT ----- Patient requires a new authorization for further visits. Please place a new referral and send a message to the lead front desk agent for scheduling. documented in this encounterM[facility]05[facility] History of Present illness Narrative* aPlomo Davalos MD - 03/22/2023 10:15 AM EDT Follow-Up Onabotulinum Toxin A (BotoxTM) for Migraine Indication: Chronic Intractable Migraine Referral Expiration: 06/16/2023 Prior to the initiation of the FIRST treatment with Onabotulinum Toxin A, the patient reported the following average headache frequency over the past 3 MONTHS: Number of moderate-severe migraine days/month: 12 Number of mild migraine days/month: 13 Number of headache free days/month: 5 (120 headache-free hours) After treatment with Onabotulinum Toxin A: Number of moderate-severe migraine days/month: 4 Number of mild migraine days/month: 5 Number of headache free days/month: 21 (504 headache-free hours) Patient reduction in overall migraine days: Yes Patient reduction in moderate-severe migraine days: Yes Patient reduction of headache hours by 100 hours or more: Yes (reduction of 384 hours) Individual has obtained clinical benefit deemed significant by individual or prescriber (Y/N): Yes Patient's quality of life and ability to perform ADLs has improved (Y/N): Yes Wearing off: No The patient has been assessed for disorders which could contribute to breathing or swallowing difficulty, and there is no contraindication with PREEMPT Botox. There is no documented allergic reaction/hypersensitivity to any botulinum toxin and there is no active infection at proposed injection site. HEADACHE SCORES: Headache Questions 02/19/2022 05/28/2022 ER visits since last office visit: 0 0 Hospital stays since last office visit 0 0 Limited ADLs in the last month: 8 - Days headache pain free in the last month: 22 - Days per month with ALL of the following symptoms - decreased productivity, light sensitivity and nausea: 8 - Initial improvement of headache after botox injection at last visit: Very much improved Very much improved PRN medication usage in the last month: 8 - Patient impression of improvement since last visit: Very much improved Very much improved HIT-6 02/19/2022 05/28/2022 HIT-6 64 (Severe impact) Incomplete MARIA ESTHER - 2/7 SCORES 02/19/2022 MARIA ESTHER-2 Score 3 MARIA ESTHER-7 Score 5 PHQ-9 02/19/2022 07/13/2022 01/25/2023 Score 9 12 10 BP 103/69 (BP Site: Right Arm, BP Position: Sitting, BP Cuff Size: Regular Adult) Pulse 77 Patient name: Pao Lion : 1970 ALLERGIES Allergen Reactions Biaxin [Clarithromy* GI Upset Sutures Rash, Hives, Swelling, Itching Specifically, cat gut sutures Cymbalta [Duloxetin* Swelling Severe abdominal pain Demerol [Meperidine* Vomiting Indomethacin Swelling Had 4+ edema in legs and arms the day after taking a new prescription. Morphine Vomiting Naproxen GI Upset Penicillins Rash, Hives Vancomycin GI Upset Versed [Midazolam H* Vomiting Z Pack [Azithromyci* Rash, GI Upset UNIVERSAL PROTOCOL / SAFETY CHECKLIST Procedure: Onabotulinum toxin A for migraine Informed Consent Consent Obtained: Written [place] Protocol A moment to CARE was completed SIGN IN Personnel directly involved with the procedure wore the appropriate PPE Special Equipment: N/A Patient/Surrogate Stated/Verified: Patient name, Date of , Relevant allergies and Intended procedure TIME OUT Intended patient and procedure match the source document(s) Consent documented and matches the intended procedure No relevant labs, photos, and/or imaging studies were applicable for review. No correct side/site applicable for marking and visibility. No medications required for procedure. No fire risk assessment and interventions applicable. No implant(s) inserted. SIGN OUT No specimen collected. No instruments, equipment or retained foreign bodies applicable. Post-procedure follow-up management communicated and Plan of Care Visit completed when applicable Written Consent Obtained: Written Injection Sites Left (Units) Left (Sites) Right (Units) Right (Sites) TOTAL (Units) Used Car Make Ready Worker 5 1 5 1 10 Procerus Units: 5 Sites: 1 5 Frontalis 10 2 10 2 20 Temporalis 45 9 40 8 85 Occipitalis 15 3 15 3 30 Cervical PSP 10 2 10 2 20 Trapezius 15 3 15 3 30 Total Units used: 200 Total Units wasted: 0 Prior Therapies Duration of Use Dose Side effect Palomo Davalos MD documented in this encounterM[facility]23 Miscellaneous Notes* Telephone Encounter - Ginny Flores RN - 03/20/2023 10:10 AM EDT [facility] called to request REMS form for this pt from . They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 (TEGRETOL) 200 mg tablet Take 2 tablets by mouth three times daily. pregabalin (LYRICA) 50 mg capsule Take 4 capsules by mouth twice daily for 30 days. ezetimibe (ZETIA) 10 mg tablet Take 10 mg by mouth every morning. mupirocin (BACTROBAN) 2 % ointment Apply to affected area three times daily. carBAMazepine XR (TEGRETOL XR) 200 mg 12 hr tablet Take 1 tablet by mouth twice daily. Pregabalin (LYRICA) 200 mg capsule Take 200 mg by mouth twice daily. REPATHA SURECLICK 140 mg/mL pen injector INJECT 140 MG UNDER THE SKIN EVERY 2 WEEKS hydrOXYzine HCl (ATARAX) 25 mg tablet Take 25 mg by mouth as needed. omeprazole (PRILOSEC) 40 mg capsule Take 40 mg by mouth as needed. SUMAtriptan (IMITREX) 100 mg tablet Take 100 mg by mouth. esterified estrogens-methylTESTOSTERone (ESTRATEST) 1.25-2.5 mg per tablet Take 1 tablet by mouth once daily. levothyroxine (SYNTHROID) 88 mcg tablet Take 50 mcg by mouth daily before breakfast. tiZANidine (ZANAFLEX) 4 mg tablet Take 4 mg by mouth as needed. PAST MEDICAL HISTORY Diagnosis Date Dyslipidemia Fracture Hearing difficulty bilateral bone achored hearing aids - implants Hyperglycemia Hypothyroidism Migraine Narcolepsy Mild Osteopenia Thyroid problems rt. rotator cuff POTS (postural orthostatic tachycardia syndrome) Radiculopathy lower, right moderate, left mild Sleep apnea Trigeminal neuralgia. L PAST SURGICAL HISTORY Procedure Laterality Date ABDOMINOPLASTY UMBILICAL TRANSPOSITION AND FASCIAL 06/2017 LIG/TRNSXJ FLP TUBE ABDL/VAG APPR UNI/BI Ear surgery tubes deviated septum repair 2004 epideral back injections PAST SURGICAL HISTORY OF Rt. rotator cuff repair PAST SURGICAL HISTORY OF 06/25/2011 IMPLANT OSSEOINTEGRATED IMPLANT TEMPORAL BONE W/ PERC ATTACH TO STIMULATOR W/O MASTOIDECTOMY PAST SURGICAL HISTORY OF 2012 right rotator cuff repair PAST SURGICAL HISTORY OF 2005 ovaries and fallopian tubes removed PAST SURGICAL HISTORY OF 11/2014 Interstim ROTATOR CUFF REPAIR Left TONSILLECTOMY & ADENOIDECTOMY AGE 14/> FAMILY HISTORY Problem Relation Age of Onset Heart Mother TIA Heart Father COPD Father Headache Sister Headache Other niece Cancer Son hodgkin's lymphoma Asthma Brother Asthma Daughter Asthma Son Social History Tobacco Use Smoking status: Former Packs/day: 1.00 Years: 18.00 Pack years: 18.00 Types: Cigarettes Quit date: 09/27/1994 Years since quittin.3 Smokeless tobacco: Never Vaping Use Vaping Use: Never used Substance Use Topics Alcohol use: Not Currently Drug use: No Comment: denies tx for drug/alcohol abuse in the past. ROS: Patient denies skin rashes, tinnitus, cough, fever, dizziness, fainting, orthostasis, vision or language changes. No shortness of breath, chest pain, nausea, vomiting or diarrhea. Denies ease ofbleeding or bruising. She does report recurrent foggy headed and having difficulty with focusing. Virtual Examination: Pleasant individual in NAD, reactive affect, coherent cognition, preserved orientation to all spheres and normal higher cortical functions including language, praxis and executive functions. Cranial nerve assessment revealed symmetric visual focusing and tracking, 3 mm pupillary size, round shape and prompt reaction to blink, preserved adaptation to consensual light and convergence to focusing on nasal tip. There was no spontaneous or gaze evoked nystagmus. Saccadic, pursuit and full range of extraocular movements were intact. Visual acuity was preserved for letter recognition. There was no ptosis or asymmetry of palpebral fissure. Contraction of B/L orbicularis occuli as well as B/L facial, glossal and sternocleidomastoid muscles were performed symmetrically. Facial sensation and hearing were preserved. She is noted to have significant L>R sided paracervical spasm with reported pain during C spine ROM but also during brachial plexus traction test as her arms become heavy and week with her being almost unable to maintain elevated arm posture. There is reported increased MCGOWAN and facial numbness with plexus traction test. Patient has preserved extremity ROM, no UE drift or fix, preserved coordination and power includingthe ability to perform the following tasks without any observable deficits: Standing up from a seated position unassisted and without using arms, Balancing on feet and rise on toes (either side) Symmetric ambulation along with associated arm movements. Impression: With all likelihood she has neuropathic pain that is a combination of: Chronic MCGOWAN and Cervicogenic MCGOWAN; ? Atypical facial pain vs L V-II TGN Brachial plexus entrapment (neurogenic TOS) Wide spread sensitization that will need in person visit. 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 I had a detailed discussion instructing the patient about my impression and available managementoptions. At this point I only suggested postural exercise and core training until she is seen in person. 2. She is to obtain a copy of all her outside images, and obtain a PVR before coming in for in person visit. Yee Bejarano MD, PhD VT: 65 min (>50% face to face, including time to review records and finalize current note) documented in this encounterM[facility]03-02-2023 Miscellaneous Notes* Telephone Encounter - Ginny Flroes RN - 01/17/2023 2:35 PM EST [place] message sent documented in this encounterMarietta [facility]02-13-2023 Miscellaneous Notes* Telephone Encounter - Ginny Flores RN - 12/31/2022 7:37 AM EST ? Information regarding your request We are unable to process your request for prior authorization for XYWAV KAYLAN 0.5GM/ML for the above member due to [employer] has a denied request on file for XYWAV KAYLAN 0.5GM/ML for this member. Please refer to the appeals process outlined in the original denial or contact Prior Authorization Departmentat [phone] for further questions. * Telephone Encounter - Santa Guillen - 12/30/2022 1:49 PM EST Images from the original note were not included. SLEEPPAREQUEST Renu NARAYANAN has been received via fax. Requested by: ESSDS Callback #: NA Medication: Xywav Dosage: 500mg/ml solution Moreno: [id number] documented in this encounterMarietta [facility]01-30-2023 History of Present illness Narrative* Palomo Davalos MD - 12/17/2022 4:28 PM EST Follow-Up Onabotulinum Toxin A (BotoxTM) for Migraine Indication: Chronic Intractable Migraine Referral Expiration: 06/16/2023 Prior to the initiation of the FIRST treatment with Onabotulinum Toxin A, the patient reported the following average headache frequency over the past 3 MONTHS: Number of moderate-severe migraine days/month: 12 Number of mild migraine days/month: 13 Number of headache free days/month: 5 (120 headache-free hours) After treatment with Onabotulinum Toxin A: Number of moderate-severe migraine days/month: 4 Number of mild migraine days/month: 3 Number of headache free days/month: 23 (552 headache-free hours) Patient reduction in overall migraine days: Yes Patient reduction in moderate-severe migraine days: Yes Patient reduction of headache hours by 100 hours or more: Yes (reduction of 432 hours) Individual has obtained clinical benefit deemed significant by individual or prescriber (Y/N): Yes Patient's quality of life and ability to perform ADLs has improved (Y/N): Yes Wearing off: No The patient has been assessed for disorders which could contribute to breathing or swallowing difficulty, and there is no contraindication with PREEMPT Botox. There is no documented allergic reaction/hypersensitivity to any botulinum toxin and there is no active infection at proposed injection site. HEADACHE SCORES: Headache Questions 02/19/2022 05/28/2022 ER visits since last office visit: 0 0 Hospital stays since last office visit 0 0 Limited ADLs in the last month: 8 - Days headache pain free in the last month: 22 - Days per month with ALL of the following symptoms - decreased productivity, light sensitivity and nausea: 8 - Initial improvement of headache after botox injection at last visit: Very much improved Very much improved PRN medication usage in the last month: 8 - Patient impression of improvement since last visit: Very much improved Very much improved HIT-6 02/19/2022 05/28/2022 HIT-6 64 (Severe impact) Incomplete MARIA ESTHER - 2/7 SCORES 02/19/2022 MARIA ESTHER-2 Score 3 MARIA ESTHER-7 Score 5 PHQ-9 05/05/2021 02/19/2022 07/13/2022 Score 1 9 12 BP 108/76 (BP Site: Right Arm, BP Position: Sitting, BP Cuff Size: Regular Adult) Pulse 73 Patient name: Pao Lion : 1970 ALLERGIES Allergen Reactions Biaxin [Clarithromy* GI Upset Sutures Rash, Hives, Swelling, Itching Specifically, cat gut sutures Cymbalta [Duloxetin* Swelling Severe abdominal pain Demerol [Meperidine* Vomiting Indomethacin Swelling Had 4+ edema in legs and arms the day after taking a new prescription. Morphine Vomiting Naproxen GI Upset Penicillins Rash, Hives Vancomycin GI Upset Versed [Midazolam H* Vomiting Z Pack [Azithromyci* Rash, GI Upset UNIVERSAL PROTOCOL / SAFETY CHECKLIST Procedure: Onabotulinum toxin A for migraine Informed Consent Consent Obtained: Written [place] Protocol A moment to CARE was completed SIGN IN Personnel directly involved with the procedure wore the appropriate PPE Special Equipment: N/A Patient/Surrogate Stated/Verified: Patient name, Date of , Relevant allergies and Intended procedure TIME OUT Intended patient and procedure match the source document(s) Consent documented and matches the intended procedure No relevant labs, photos, and/or imaging studies were applicable for review. No correct side/site applicable for marking and visibility. No medications required for procedure. No fire risk assessment and interventions applicable. No implant(s) inserted. SIGN OUT No specimen collected. No instruments, equipment or retained foreign bodies applicable. Post-procedure follow-up management communicated and Plan of Care Visit completed when applicable Written Consent Obtained: Written Injection Sites Left (Units) Left (Sites) Right (Units) Right (Sites) TOTAL (Units) Used Car Make Ready Worker 5 1 5 1 10 Procerus Units: 5 Sites: 1 5 Frontalis 10 2 10 2 20 Temporalis 45 4 40 4 85 Occipitalis 15 3 15 3 30 Cervical PSP 10 2 10 2 20 Trapezius 15 3 15 3 30 Total Units used: 200 Total Units wasted: 0 Prior Therapies Duration of Use Dose Side effect Palomo Davalos MD documented in this encounterMarietta [facility]01-30-2023 Miscellaneous Notes* Telephone Encounter - Cristina Shah LPN - 12/17/2022 4:10 PM EST 12/17/2022 Pt in for Botox today and asking for update on paperwork for Botox assistance forms. States she hasa form that she needs signed and has not heard back from Rhea Sorto. Will wait for a call back. Message forwarded to Rhea Sorto for review and response to patient. Cristina Shah LPN * Telephone Encounter - Abbie Rice Pss - 12/11/2022 2:24 PM EST Patient calling to receive an update on the forms she faxed you re: financial assistance for Botox.She wanted to know the status? She said you may call and LVM with the answer so you both don't haveto play phone tag. Per patient, there is a 30 second delay and then you are able to LVM. Call back #: [phone] documented in this encounterMarietta [facility]01-06-2023 Miscellaneous Notes* Telephone Encounter - Santa Guillen - 11/23/2022 4:31 PM EST Insurance co calling for questions regarding Xywav Rx: They need to know what formulary medications the pt has tried and failed previously? And the specific medical reasons pt has tried and failed above medications? Number to call is [phone] Reference # [id number] * Telephone Encounter - Ginny Flores RN - 11/23/2022 9:37 AM EST Images from the original note were not included. documented in this encounterMarietta [facility]01-04-2023 Miscellaneous Notes* Telephone Encounter - Luly Guillen RN - 11/21/2022 10:09 AM EST Botox referral sent to pharmacy. Luly Guillen RN * Telephone Encounter - Abbie Rice Pss - 11/21/2022 10:01 AM EST Patient needs PA for Botox under new [facility] insurance. documented in this encounterMarietta [facility] Clinic12-29-2022 Miscellaneous Notes* Telephone Encounter - Elliot Castillo RN - 11/15/2022 2:21 PM EST Images from the original note were not included. PA in Covermymeds came back patients insurance has been terminated. [facility] and spoke with Juliana to inform and they will call patients insurance. * Telephone Encounter - Nnamdi Bolivar - 11/15/2022 1:39 PM EST Images from the original note were not included. SLEEPPAREQUEST A PA has been received via fax. Requested by: Tor Callback #: na Medication: Xywav Dosage: 500MG Moreno: [id number] documented in this encounterMarietta [facility] Clinic12-28-2022 Miscellaneous Notes* Telephone Encounter - Elliot Castillo RN - 11/14/2022 9:02 AM EST Wakix prescription sent to patients local pharmacy and need specialty pharmacy. [facility] specialty pharmacy to provide medication and requesting prescription. documented in this encounterMarietta [facility] Clinic12-08-2022 Miscellaneous Notes* Telephone Encounter - Haja Martin - 10/25/2022 9:40 AM EST Received from [facility] and [facility] approval letter for Wakix 17.8 MG Tablet via fax. Approved from 07/26/22 to 10/25/23. 2 pages indexed to chart. * Telephone Encounter - Ginny Flores RN - 10/25/2022 7:49 AM EST Images from the original note were not included. documented in this encounterMarietta [facility] Clinic12-07-2022 History of Present illness Narrative* Drew Castellanos MD - 10/24/2022 4:20 PM EST Images from the original note were not included. [facility] Follow up/ Established patient visit Date of last visit : Visit date not found IMPRESSION: Narcolepsy type 1 Clinical Global Impression of Change ( CGI-C) Compared to the patient's condition at baseline, how much has the patient changed? Much improved PLAN: - Continue taking Xywav 4.5 grams twice per night as directed. - Start Nuvigil 150 mg one by mouth upon awakenings Interval history : Here for follow up for She stopped the Nuvigil due to nausea and headache. She continues the Xywav 4.5 grams twice per night, which is helping her EDS significantly. [place] Sleepiness Scale: While on Xywav Sitting and readin Watching TV: 3 Sitting, inactive in a public place (e.g. a theatre or a meeting): 0 As a passenger in a car for an hour without a break: 0 Lying down to rest in the afternoon when circumstances permit: 1 Sitting and talking to someone: 0 Sitting quietly after a lunch without alcohol: 0 In a car, while stopped for a few minutes in the traffic: 0 Total: 6 SLEEP HYGIENE QUESTIONS: She takes 4.5 grams of Xywav at bedtime Bedtime : MN Wake up Time : 730 am Time it takes to fall sleep : < 20 minutes Activities in bed before falling asleep : none Number of times patient wakes up per night : 1 time for second dose Reason (s) why patient wakes up during the night : for medication Estimated total sleep time ( in a 24 hour period of time) : 7 hours Naps : Not regularly PATIENT-ENTERED QUESTIONNAIRE SLEEP SCORES Sleep Questions 07/13/2022 Reason for visit: Difficulty falling or staying asleep or poor sleep quality, Excessive daytime sleepiness, Narcolepsy Average hours slept in 24 hours: 7 Accidents or near accidents due to drowsy drivin [place] Sleepiness Scale 06/27/2020 05/05/2021 07/13/2022 Score 16 (severe daytime sleepiness) Incomplete 12 (present daytime sleepiness) PROMIS CAT Sleep Disturbance 11/22/2020 05/05/2021 07/07/2022 PROMIS Sleep Disturbance T-Score 74 (severe) 41 (within normal limits) 46 (within normal limits) Insomnia Severity Index 06/27/2020 Score 28 Restless Leg Syndrome 06/27/2020 07/13/2022 Score 16 16 PHQ-9 05/05/2021 02/19/2022 07/13/2022 Score 1 9 12 PROMIS Global Health - (T-Scores - the mean of general population = 50. Five points is a clinicallymeaningful difference.) 09/05/2021 02/19/2022 07/13/2022 Physical T-Score 26.7 29.6 32.4 Mental T-Score 33.8 36.3 33.8 PMH, PSH, SH: No changes SLEEP RELATED ROS Review of Systems ALLERGIES Allergen Reactions Biaxin [Clarithromy* GI Upset Sutures Rash, Hives, Swelling, Itching Specifically, cat gut sutures Cymbalta [Duloxetin* Swelling Severe abdominal pain Demerol [Meperidine* Vomiting Indomethacin Swelling Had 4+ edema in legs and arms the day after taking a new prescription. Morphine Vomiting Naproxen GI Upset Penicillins Rash, Hives Vancomycin GI Upset Versed [Midazolam H* Vomiting Z Pack [Azithromyci* Rash, GI Upset CURRENT MEDICATIONS: sodium,calcium,mag,pot oxybate (XYWAV) 0.5 gram/mL soln Take 4.5 grams at bedtime and 4.5 grams 2.5-4 hours after (9 grams total per night) armodafinil (NUVIGIL) 150 mg tab Take one tablet by mouth upon awakenings carBAMazepine (TEGRETOL) 200 mg tablet Take 2 tablets by mouth three times daily. pregabalin (LYRICA) 50 mg capsule Take 4 capsules by mouth twice daily for 30 days. ezetimibe (ZETIA) 10 mg tablet Take 10 mg by mouth every morning. mupirocin (BACTROBAN) 2 % ointment Apply to affected area three times daily. carBAMazepine XR (TEGRETOL XR) 200 mg 12 hr tablet Take 1 tablet by mouth twice daily. Pregabalin (LYRICA) 200 mg capsule Take 200 mg by mouth twice daily. ofloxacin (FLOXIN) 0.3 % otic solution Use 5 Drops in both ears twice daily. (Patient not taking: Reported on 10/05/2021 ) REPATHA SURECLICK 140 mg/mL pen injector INJECT 140 MG UNDER THE SKIN EVERY 2 WEEKS hydrOXYzine HCl (ATARAX) 25 mg tablet Take 25 mg by mouth three times a week. omeprazole (PRILOSEC) 40 mg capsule Take 40 mg by mouth as needed. desmopressin acetate (DDAVP) 0.2 mg tablet Take 1 tablet by mouth once daily. SUMAtriptan (IMITREX) 100 mg tablet Take 100 mg by mouth. esterified estrogens-methylTESTOSTERone (ESTRATEST) 1.25-2.5 mg per tablet Take 1 tablet by mouth once daily. levothyroxine (SYNTHROID) 88 mcg tablet Take 50 mcg by mouth daily before breakfast. tiZANidine (ZANAFLEX) 4 mg tablet Take 4 mg by mouth as needed. Prior Hypersomnia/Narcolepsy Medications (20 years) Some values may be hidden. Unless noted otherwise, only the newest values recorded on each date aredisplayed. Hypersomnia/Narcolepsy Medications armodafinil (NUVIGIL) 150 mg tab Dose: Take one tablet by mouth upon awakenings Starting date: 07/13/2022 Ending date: 08/13/2022 methylphenidate (RITALIN) 20 mg tablet Dose: Starting date: 07/02/2016 Ending date: 10/19/2016 (Discontinued) methylphenidate 10 mg/9 hr Dose: 1 Patch DAILY wear patch for 9 hours only each day Starting date: 08/11/2012 Ending date: 09/24/2013 (Discontinued) sodium oxybate(XYREM 500 MG/ML ORAL SOLN) Dose: as necessary Starting date: 09/27/2009 Ending date:07/26/2010 (Discontinued) sodium oxybate(XYREM 500 MG/ML ORAL SOLN) Dose: at bedtime Starting date: Ending date: 12/06/2015 (Discontinued) sodium,calcium,mag,pot oxybate (XYWAV) 0.5 gram/mL soln Dose: 4.5 g DAILY Take 2.25g at bed time and second dose (2.25g), two and a half to four hours later. Starting date: 10/18/2020 Ending date: 11/23/2020 (Discontinued) sodium,calcium,mag,pot oxybate (XYWAV) 0.5 gram/mL soln Dose: Take 3 grams at bedtime and second dose (3 grams) two and a half to four hours later for one week, then take 3.75 grams at bedtime and second dose (3.75 grams) two and a half to four hours later for one week, then take 4.5 grams thereafter (9 grams total per night) Starting date: 11/23/2020 Ending date: 05/02/2021 (Discontinued) sodium,calcium,mag,pot oxybate (XYWAV) 0.5 gram/mL soln Dose: Take 4.5 grams at bedtime and 4.5 grams 2.5-4 hours after (9 grams total per night) Starting date: 05/04/2021 Ending date: 10/10/2021 (Discontinued) sodium,calcium,mag,pot oxybate (XYWAV) 0.5 gram/mL soln Dose: Take 4.5 grams at bedtime and 4.5 grams 2.5-4 hours after (9 grams total per night) Starting date: 10/27/2021 Ending date: 04/06/2022 (Discontinued) sodium,calcium,mag,pot oxybate (XYWAV) 0.5 gram/mL soln Dose: Take 4.5 grams at bedtime and 4.5 grams 2.5-4 hours after (9 grams total per night) Starting date: 04/10/2022 Ending date: 04/10/2022 (Discontinued) sodium,calcium,mag,pot oxybate (XYWAV) 0.5 gram/mL soln Dose: Take 4.5 grams at bedtime and 4.5 grams 2.5-4 hours after (9 grams total per night) Starting date: 04/10/2022 Ending date: 09/20/2022 (Discontinued) sodium,calcium,mag,pot oxybate (XYWAV) 0.5 gram/mL soln Dose: Take 4.5 grams at bedtime and 4.5 grams 2.5-4 hours after (9 grams total per night) Starting date: 09/21/2022 Ending date: 10/05/2022 (Discontinued) sodium,calcium,mag,pot oxybate (XYWAV) 0.5 gram/mL soln Dose: Take 4.5 grams at bedtime and 4.5 grams 2.5-4 hours after (9 grams total per night) Starting date: 10/09/2022 Ending date: 03/02/2023 Medication marked as long-term Prior RLS Medications (last 20 years) Some values may be hidden. Unless noted otherwise, only the newest values recorded on each date aredisplayed. RLS Medications acetaminophen-hydrocodone (VICODIN) 5-500 mg ORAL per tablet Dose: Take two tablets prn for migraine headache Starting date: Ending date: 06/20/2011 (Discontinued) acetaminophen-hydrocodone (VICODIN) 5-500 mg ORAL per tablet Dose: 1-2 tab every 6 hours as needed for pain Starting date: 12/28/2010 Ending date: 06/20/2011 (Discontinued) acetaminophen-hydrocodone (VICODIN) 5-500 mg ORAL tablet Dose: 1-2 tablet EVERY 6 HOURS NEEDED Starting date: 06/25/2011 Ending date: 04/03/2012 (Discontinued) FENTANYL 50 mcg/hr TRANSDERM. Dose: Starting date: 02/20/2011 Ending date: 06/20/2011 (Discontinued) fentaNYL (DURAGESIC) 50 mcg/hr Dose: 1 Patch EVERY 72 HOURS Starting date: Ending date: 10/29/2013 (Discontinued) FENTANYL 75 mcg/hr TRANSDERM. Dose: Starting date: 02/07/2011 Ending date: 06/20/2011 (Discontinued) fentaNYL 75 mcg/hr Dose: 1 Patch EVERY 72 HOURS Starting date: Ending date: 08/12/2014 (Discontinued) HYDROcodone-Acetaminophen (VICODIN) 5-300 mg tab Dose: 2 tablet NEEDED Starting date: Ending date: 08/12/2014 (Discontinued) HYDROcodone-acetaminophen 5-325 mg per tablet Dose: 1 tablet EVERY 6 HOURS NEEDED Starting date:Ending date: 08/12/2014 (Discontinued) HYDROcodone-acetaminophen (NORCO) 5-325 mg per tablet Dose: Starting date: 07/02/2016 Ending date: 10/19/2016 (Discontinued) HYDROcodone-acetaminophen (NORCO) 5-325 mg per tablet Dose: 1 tablet EVERY 8 HOURS NEEDED pain not well controlled by tylenol Starting date: 06/08/2019 Ending date: 06/11/2019 HYDROCODONE-ACETAMINOPHEN 7.5-650 mg ORAL per tablet Dose: Starting date: 01/26/2011 Ending date: 06/25/2011 (Discontinued) HYDROmorphone 0.2 mg injection (DILAUDID) Dose: 0.2 mg EVERY 2 HOURS NEEDED Caution: Hydromorphone is 5 - 7 times MORE POTENT than morphine. For example: Hydromorphone 1mg IV = morphine 7mg IV Starting date: 12/15/2015 Ending date: 12/15/2015 (Discontinued) HYDROmorphone 0.2 mg injection (DILAUDID) Dose: 0.2 mg NEEDED can be given as often as every 10 minutes to a max dose of 4 mg SECOND LINE THERAPY Up to every 10 minutes to Total Dose of 4 mg USE FOR MODERATE PAIN ONLY IF PATIENT IS UNABLE TO TOLERATE ORAL THERAPY Starting date: 06/08/2019 Ending date: 06/08/2019 (Discontinued) HYDROmorphone 0.2 mg injection (DILAUDID) Dose: 0.2 mg EVERY 3 HOURS NEEDED Caution: Hydromorphone is 5 - 7 times MORE POTENT than morphine. For example: Hydromorphone 1mg IV = morphine 7mg IV Starting date: 04/09/2012 Ending date: 04/10/2012 (Discontinued) meperidine (PF) 12.5 mg injection (DEMEROL) Dose: 12.5 mg NEEDED for shivering May Repeat 12.5 mg in 10 minutes X1 for Continued Shivering Starting date: 06/08/2019 Ending date: 06/08/2019 (Discontinued) oxyCODONE immediate release 5-10 mg tab(s) (PERCOLONE) Dose: 5-10 mg EVERY 3 HOURS NEEDED Starting date: 12/15/2015 Ending date: 12/16/2015 (Discontinued) oxyCODONE IR 5 mg tab(s) (ROXICODONE) Dose: 5 mg X (PACU ONLY) PRN Starting date: 08/18/2018 Ending date: 08/18/2018 oxyCODONE IR 5 mg tab(s) (ROXICODONE) Dose: 5 mg NEEDED Starting date: 06/08/2019 Ending date: 06/08/2019 oxyCODONE immediate release (PERCOLONE) 5 mg immediate release tablet Dose: 5-10 mg EVERY 3 HOURS NEEDED Starting date: 12/16/2015 Ending date: 01/20/2016 (Discontinued) traMADOL 100 mg tab(s) (ULTRAM) Dose: 100 mg EVERY 4 HOURS NEEDED Starting date: 04/09/2012 Ending date: 04/10/2012 (Discontinued) traMADol 50 mg tab(s) (ULTRAM) Dose: 50 mg EVERY 6 HOURS MAX RECOMMENDED DOSE = 400 MG/24 HRS, (300MG/24HRS if pt greater than 75 years old. Starting date: 12/15/2015 Ending date: 12/16/2015 (Discontinued) TRAMADOL 50 MG TAB Dose: as necessary Starting date: 05/31/2010 Ending date: 06/25/2011 (Discontinued) traMADol (ULTRAM) 50 mg tablet Dose: 50 mg EVERY 6 HOURS NEEDED Starting date: Ending date: 12/23/2017 (Discontinued) TRAMADOL HCL (ULTRAM ORAL) Dose: 100 mg NEEDED Starting date: Ending date: 09/24/2013 (Discontinued) VICODIN 5/500 TABLET Dose: as necessary Starting date: 10/23/2004 Ending date: 05/31/2010 (Discontinued) Prior Insomnia Medications (last 20 years) Some values may be hidden. Unless noted otherwise, only the newest values recorded on each date aredisplayed. Insomnia Medications diazepam 5 mg tab(s) (VALIUM) Dose: 5 mg 3 TIMES DAILY NEEDED in case of pain Starting date: 12/15/2015 Ending date: 12/15/2015 (Discontinued) diazepam 5 mg tab(s) (VALIUM) Dose: 5 mg EVERY 6 HOURS Starting date: 12/16/2015 Ending date: 12/16/2015 (Discontinued) diazepam (VALIUM) 5 mg tablet Dose: 5 mg AT BEDTIME NEEDED Starting date: 08/11/2012 Ending date:09/24/2013 (Discontinued) diazepam (VALIUM) 5 mg tablet Dose: 5 mg EVERY 6 HOURS NEEDED Muscle spasm (Patient not taking as of 06/06/2018 4:12 PM, Patient has taken differently, 5 mg AT BEDTIME as of 09/03/2017 3:16 PM) Starting date: 12/16/2015 Ending date: 08/06/2018 (Discontinued) Zolpidem (AMBIEN CR) 12.5 mg CR tablet Dose: 12.5 mg AT BEDTIME NEEDED Starting date: Ending date: 09/27/2015 (Discontinued) Zolpidem (AMBIEN CR) 12.5 mg CR tablet Dose: 12.5 mg AT BEDTIME NEEDED Starting date: Ending date: 12/06/2015 (Discontinued) zolpidem 5 mg tab(s) (AMBIEN) Dose: 5 mg AT BEDTIME NEEDED Starting date: 04/09/2012 Ending date:04/10/2012 (Discontinued) ZOLPIDEM TARTRATE (AMBIEN ORAL) Dose: 12.5 mg AT BEDTIME NEEDED Starting date: Ending date: 12/23/2017 (Discontinued) PHYSICAL EXAMINATION: Not repeated IMPRESSION: Narcolepsy Type 1 - No recent cataplexy. Clinical Global Impression of Change ( CGI-C) Compared to the patient's condition at baseline, how much has the patient changed? Much improved PLAN: - Continue taking Xywav 4.5 grams twice per night - Add Wakix 35.8 as directed. - Avoid driving when drowsy. 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 - Try to get at least 7-9 hours of sleep in a 24 hour period. Healthy diet and exercise can also promote better sleep. - Follow up in 3 months in the office. Recommend scheduling this appointment now to ensure the besttime for you. Drew Castellanos MD documented in this encounterM[facility]12-07-2022 Instructions* Patient Instructions* Drew Castellanos MD - 10/24/2022 3:54 PM EST IMPRESSION: Narcolepsy Type 1 - No recent cataplexy. Clinical Global Impression of Change ( CGI-C) Compared to the patient's condition at baseline, how much has the patient changed? Much improved PLAN: - Continue taking Xywav 4.5 grams twice per night - Add Wakix 35.8 as directed. - Avoid driving when drowsy. 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 - Try to get at least 7-9 hours of sleep in a 24 hour period. Healthy diet and exercise can also promote better sleep. - Follow up in 3 months in the office. Recommend scheduling this appointment now to ensure the besttime for you. Drew Castellanos MD documented in this encounterMari[facility]11-30-2022 Miscellaneous Notes* Telephone Encounter - Ginny Flores RN - 10/17/2022 10:29 AM EST Called and spoke to Carlie at [facility] to clarify dosage for sodium,calcium,mag,pot oxybate (XYWAV) 0.5 gram/mL soln 270 mL 5 10/09/2022 03/02/2023 Sig: Take 4.5 grams at bedtime and 4.5 grams 2.5-4 hours after (9 grams total per night) Rx needs to be adjusted to reflect correct amount to dispense. Dispense amount ordered as 270 ml and will need to be changed to 540 ml for 30 day supply. * Telephone Encounter - Nnamdi Bolivar - 10/16/2022 2:43 PM EST SLEEP PHONE Name of caller: [facility] Relationship to patient : Self In-state or [id number] patient: In-State Was permission obtained from patient? Yes Patient identified by Name and Date of . ( Pao Lion, 1970). Yes Reason for Call : [facility] called with questions in regards to the patient's medication. Number to return call [phone] opt 3 then opt 4 Okay to leave a message ? No Last office visit 07/13/[address] Castellanos virtual Next office visit 10/24/[address] Castellanos in person documented in this encounterMarietta [facility]11-22-2022 Miscellaneous Notes* Telephone Encounter - Kavon Snider APRN.CNP - 10/09/2022 8:17 AM EST Sabra Gross, I signed it, this hasn't worked virtually yet that i'm aware of, you can just email me the script and I can handle it if it doesn't work. Thanks, Kavon Snider APRN.CNP * Telephone Encounter - Kavon Snider APRN.CNP - 10/09/2022 8:10 AM EST Images from the original note were not included. It appears I sent order on pdmp on 10/05, re-signed current order PDMP website checked and validated. All prescriptions have been APPROPRIATELY filled. No suspiciousactivity was identified. 10/09/2022 by Kavon Snider APRN.CNP * Telephone Encounter - Ginny Flores RN - 10/05/2022 9:30 AM EST [facility] and spoke to Cristina Morales. They need either a new REMS form for Xywav from Rosana Florence APRN.CNP or an electronic Rx for Xywav will need to be sent by Kavon Snider APRN.CNP. I will route Rx to be electronically signed to Kavon Snider APRN.LEAD FABRICATOR. * Telephone Encounter - Jocelyn Vargas - 10/04/2022 9:38 AM EST SLEEP PHONE Name of caller: Jose Elias Relationship to patient : [facility] In-state or [id number] patient: In-State Was permission obtained from patient? Yes Patient identified by Name and Date of . ( Pao Lion, 1970). Yes Reason for Call : Called in because they need a Rems form for Xywav faxed over due to [employer] Rosnaa Florence prescribing the prescription for the first time. Also wanted to see if provider wanted to supply for 30 instead of 15 days which was sent over. Number to return call [phone] option3 then 4 Okay to leave a message ? No Last office visit 07/13/22 with virtual Next office visit 10/24/[address] Castellanos in person documented in this encounterMari[facility]11-04-2022 Miscellaneous Notes* Telephone Encounter - Ginny Flores RN - 09/21/2022 6:58 AM EDT Sylvie 07/13/[address] Castellanos virtual Fov 10/24/[address] Castellanos in person IMPRESSION: Narcolepsy type 1 Clinical Global Impression of Change ( CGI-C) Compared to the patient's condition at baseline, how much has the patient changed? Much improved PLAN: - Continue taking Xywav 4.5 grams twice per night as directed. - Start Nuvigil 150 mg one by mouth upon awakenings - Avoid driving when drowsy. 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 - Try to get at least 7-9 hours of sleep in a 24 hour period. Healthy diet and exercise can also promote better sleep. - Follow up in 3 months in the office. Recommend scheduling this appointment now to ensure the besttime for you. Drew Castellanos MD * Telephone Encounter - Haja Martin - 09/20/2022 3:58 PM EDT Physician: Dr. Castellanos Call from pharmacy requesting refill. Please E-Scribe Last office visit 07/13/[address] Castellanos virtual Next office visit 10/24/[address] Castellanos in person Requested Prescriptions Pending Prescriptions Disp Refills sodium,calcium,mag,pot oxybate (XYWAV) 0.5 gram/mL soln 270 mL 5 Sig: Take 4.5 grams at bedtime and 4.5 grams 2.5-4 hours after (9 grams total per night) Pharmacy Name: [facility] [place] [address] - [id number] [phone] [phone] Haja Martin documented in this encounterMarietta [facility]10-31-2022 History of Present illness Narrative* Palomo Davalos MD - 09/17/2022 4:13 PM EDT Follow-Up Onabotulinum Toxin A (BotoxTM) for Migraine Indication: Chronic Intractable Migraine Referral Expiration: 02/26/2023 Prior to the initiation of the FIRST treatment with Onabotulinum Toxin A, the patient reported the following average headache frequency over the past 3 MONTHS: Number of moderate-severe migraine days/month: 12 Number of mild migraine days/month: 13 Number of headache free days/month: 5 (120 headache-free hours) After treatment with Onabotulinum Toxin A: Number of moderate-severe migraine days/month: 4 Number of mild migraine days/month: 5 Number of headache free days/month: 21 (504 headache-free hours) Patient reduction in overall migraine days: Yes Patient reduction in moderate-severe migraine days: Yes Patient reduction of headache hours by 100 hours or more: Yes (reduction of 384 hours) Individual has obtained clinical benefit deemed significant by individual or prescriber (Y/N): Yes Patient's quality of life and ability to perform ADLs has improved (Y/N): Yes Wearing off: No The patient has been assessed for disorders which could contribute to breathing or swallowing difficulty, and there is no contraindication with PREEMPT Botox. There is no documented allergic reaction/hypersensitivity to any botulinum toxin and there is no active infection at proposed injection site. HEADACHE SCORES: Headache Questions 02/19/2022 05/28/2022 ER visits since last office visit: 0 0 Hospital stays since last office visit 0 0 Limited ADLs in the last month: 8 - Days headache pain free in the last month: 22 - Days per month with ALL of the following symptoms - decreased productivity, light sensitivity and nausea: 8 - Initial improvement of headache after botox injection at last visit: Very much improved Very much improved PRN medication usage in the last month: 8 - Patient impression of improvement since last visit: Very much improved Very much improved HIT-6 02/19/2022 05/28/2022 HIT-6 64 (Severe impact) Incomplete MARIA ESTHER - 2/7 SCORES 02/19/2022 MARIA ESTHER-2 Score 3 MARIA ESTHER-7 Score 5 PHQ-9 05/05/2021 02/19/2022 07/13/2022 Score 1 9 12 BP 111/74 (BP Site: Left Arm, BP Position: Sitting, BP Cuff Size: Regular Adult) Pulse 75 Patient name: Pao Lion : 1970 ALLERGIES Allergen Reactions Biaxin [Clarithromy* GI Upset Sutures Rash, Hives, Swelling, Itching Specifically, cat gut sutures Cymbalta [Duloxetin* Swelling Severe abdominal pain Demerol [Meperidine* Vomiting Indomethacin Swelling Had 4+ edema in legs and arms the day after taking a new prescription. Morphine Vomiting Naproxen GI Upset Penicillins Rash, Hives Vancomycin GI Upset Versed [Midazolam H* Vomiting Z Pack [Azithromyci* Rash, GI Upset UNIVERSAL PROTOCOL / SAFETY CHECKLIST Procedure: Onabotulinum toxin A for migraine Informed Consent Consent Obtained: Written [place] Protocol A moment to CARE was completed SIGN IN Personnel directly involved with the procedure wore the appropriate PPE Special Equipment: N/A Patient/Surrogate Stated/Verified: Patient name, Date of , Relevant allergies and Intended procedure TIME OUT Intended patient and procedure match the source document(s) Consent documented and matches the intended procedure No relevant labs, photos, and/or imaging studies were applicable for review. No correct side/site applicable for marking and visibility. No medications required for procedure. No fire risk assessment and interventions applicable. No implant(s) inserted. SIGN OUT No specimen collected. No instruments, equipment or retained foreign bodies applicable. Post-procedure follow-up management communicated and Plan of Care Visit completed when applicable Written Consent Obtained: Written Injection Sites Left (Units) Left (Sites) Right (Units) Right (Sites) TOTAL (Units) Used Car Make Ready Worker 5 1 5 1 10 Procerus Units: 5 Sites: 1 5 Frontalis 10 2 10 2 20 Temporalis 45 4 40 4 85 Occipitalis 15 3 15 3 30 Cervical PSP 10 2 10 2 20 Trapezius 15 3 15 3 30 Total Units used: 200 Total Units wasted: 0 Prior Therapies Duration of Use Dose Side effect Palomo Davalos MD documented in this encounterMarietta [facility]08-26-2022 Instructions* Patient Instructions* Drew Castellanos MD - 07/13/2022 1:17 PM EDT MyChart me with any problems or concerns. IMPRESSION: Narcolepsy type 1 Clinical Global Impression of Change ( CGI-C) Compared to the patient's condition at baseline, how much has the patient changed? Much improved PLAN: - Continue taking Xywav 4.5 grams twice per night as directed. - Start Nuvigil 150 mg one by mouth upon awakenings - Avoid driving when drowsy. 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 - Try to get at least 7-9 hours of sleep in a 24 hour period. Healthy diet and exercise can also promote better sleep. - Follow up in 3 months in the office. Recommend scheduling this appointment now to ensure the besttime for you. Drew Castellanos MD documented in this encounterMarietta [facility]08-26-2022 History of Present illness Narrative* Drew Castellanos MD - 07/13/2022 1:00 PM EDT Images from the original note were not included. [facility] Follow up/ Established patient visit Visit performed virtually, with the patient's permission. IMPRESSION: Primary narcolepsy with cataplexy (primary encounter diagnosis) Pao Lion is a 50 year old female with a PMH of headaches, narcolepsy, chronic pain, hypothyroidism, dyslipidemia and obesity who presents via zoom for psg results. A Polysomnogram performed 06/29/2020 diagnosed primary snoring and was negative for NUHA. -Ms. Lion complains of worsening commodities that worsening her EDS. She also reports more frequent cataplexy events. She estimates TST to be about six hours long. Recommended increased sleep amount to 7-9 hours to see if this improves her symptoms as six hours is likely not sufficient for her. She reports she dozes off a couple times per day but not for more than fifteen minutes total. -She continues to tolerate Xywav well. She takes twice nightly as directed. Denies side effects. -She will follow up in person in six months due to new virtual visit prescribing laws. PLAN: - Continue taking Xywav as directed. Date of last visit : Visit date not found Interval history : Here for follow up for Narcolepsy on Xywav; this was diagnosed about 15 years ago. Sleeping 6-8 hours. No cataplexy (arms would go limp during stress or embarrassment) Rare Restless Legs Syndrome She continues to have daytime fatigue. She has not been on INSPECTOR MULTIFOCAL LENS stimulants for about 10 years ago due to migraines. SLEEP HYGIENE QUESTIONS: She takes 4.5 grams of Xywav at bedtime Bedtime : MN Wake up Time : 730 am Time it takes to fall sleep : < 20 minutes Activities in bed before falling asleep : none Number of times patient wakes up per night : 1 time for second dose Reason (s) why patient wakes up during the night : for medication Estimated total sleep time ( in a 24 hour period of time) : 7 hours Naps : Not regularly PATIENT-ENTERED QUESTIONNAIRE SLEEP SCORES Sleep Questions 07/13/2022 Reason for visit: Difficulty falling or staying asleep or poor sleep quality, Excessive daytime sleepiness, Narcolepsy Average hours slept in 24 hours: 7 Accidents or near accidents due to drowsy drivin [place] Sleepiness Scale 06/27/2020 05/05/2021 07/13/2022 Score 16 (severe daytime sleepiness) Incomplete 12 (present daytime sleepiness) PROMIS CAT Sleep Disturbance 11/22/2020 05/05/2021 07/07/2022 PROMIS Sleep Disturbance T-Score 74 (severe) 41 (within normal limits) 46 (within normal limits) Insomnia Severity Index 06/27/2020 Score 28 Restless Leg Syndrome 06/27/2020 07/13/2022 Score 16 16 PHQ-9 05/05/2021 02/19/2022 07/13/2022 Score 1 9 12 PROMIS Global Health - (T-Scores - the mean of general population = 50. Five points is a clinicallymeaningful difference.) 09/05/2021 02/19/2022 07/13/2022 Physical T-Score 26.7 29.6 32.4 Mental T-Score 33.8 36.3 33.8 PMH, PSH, SH: No changes SLEEP RELATED ROS Review of Systems ALLERGIES Allergen Reactions Biaxin [Clarithromy* GI Upset Sutures Rash, Hives, Swelling, Itching Specifically, cat gut sutures Cymbalta [Duloxetin* Swelling Severe abdominal pain Demerol [Meperidine* Vomiting Indomethacin Swelling Had 4+ edema in legs and arms the day after taking a new prescription. Morphine Vomiting Naproxen GI Upset Penicillins Rash, Hives Vancomycin GI Upset Versed [Midazolam H* Vomiting Z Pack [Azithromyci* Rash, GI Upset CURRENT MEDICATIONS: carBAMazepine (TEGRETOL) 200 mg tablet Take 2 tablets by mouth three times daily. pregabalin (LYRICA) 50 mg capsule Take 4 capsules by mouth twice daily for 30 days. sodium,calcium,mag,pot oxybate (XYWAV) 0.5 gram/mL soln Take 4.5 grams at bedtime and 4.5 grams 2.5-4 hours after (9 grams total per night) ezetimibe (ZETIA) 10 mg tablet Take 10 mg by mouth every morning. mupirocin (BACTROBAN) 2 % ointment Apply to affected area three times daily. carBAMazepine XR (TEGRETOL XR) 200 mg 12 hr tablet Take 1 tablet by mouth twice daily. Pregabalin (LYRICA) 200 mg capsule Take 200 mg by mouth twice daily. ofloxacin (FLOXIN) 0.3 % otic solution Use 5 Drops in both ears twice daily. (Patient not taking: Reported on 10/05/2021 ) REPATHA SURECLICK 140 mg/mL pen injector INJECT 140 MG UNDER THE SKIN EVERY 2 WEEKS hydrOXYzine HCl (ATARAX) 25 mg tablet Take 25 mg by mouth three times a week. omeprazole (PRILOSEC) 40 mg capsule Take 40 mg by mouth as needed. desmopressin acetate (DDAVP) 0.2 mg tablet Take 1 tablet by mouth once daily. SUMAtriptan (IMITREX) 100 mg tablet Take 100 mg by mouth. esterified estrogens-methylTESTOSTERone (ESTRATEST) 1.25-2.5 mg per tablet Take 1 tablet by mouth once daily. levothyroxine (SYNTHROID) 88 mcg tablet Take 50 mcg by mouth daily before breakfast. tiZANidine (ZANAFLEX) 4 mg tablet Take 4 mg by mouth as needed. Prior Hypersomnia/Narcolepsy Medications (20 years) Some values may be hidden. Unless noted otherwise, only the newest values recorded on each date aredisplayed. Hypersomnia/Narcolepsy Medications methylphenidate (RITALIN) 20 mg tablet Dose: Starting date: 07/02/2016 Ending date: 10/19/2016 (Discontinued) methylphenidate 10 mg/9 hr Dose: 1 Patch DAILY wear patch for 9 hours only each day Starting date: 08/11/2012 Ending date: 09/24/2013 (Discontinued) sodium oxybate(XYREM 500 MG/ML ORAL SOLN) Dose: as necessary Starting date: 09/27/2009 Ending date:07/26/2010 (Discontinued) sodium oxybate(XYREM 500 MG/ML ORAL SOLN) Dose: at bedtime Starting date: Ending date: 12/06/2015 (Discontinued) sodium,calcium,mag,pot oxybate (XYWAV) 0.5 gram/mL soln Dose: 4.5 g DAILY Take 2.25g at bed time and second dose (2.25g), two and a half to four hours later. Starting date: 10/18/2020 Ending date: 11/23/2020 (Discontinued) sodium,calcium,mag,pot oxybate (XYWAV) 0.5 gram/mL soln Dose: Take 3 grams at bedtime and second dose (3 grams) two and a half to four hours later for one week, then take 3.75 grams at bedtime and second dose (3.75 grams) two and a half to four hours later for one week, then take 4.5 grams thereafter (9 grams total per night) Starting date: 11/23/2020 Ending date: 05/02/2021 (Discontinued) sodium,calcium,mag,pot oxybate (XYWAV) 0.5 gram/mL soln Dose: Take 4.5 grams at bedtime and 4.5 grams 2.5-4 hours after (9 grams total per night) Starting date: 05/04/2021 Ending date: 10/10/2021 (Discontinued) sodium,calcium,mag,pot oxybate (XYWAV) 0.5 gram/mL soln Dose: Take 4.5 grams at bedtime and 4.5 grams 2.5-4 hours after (9 grams total per night) Starting date: 10/27/2021 Ending date: 04/06/2022 (Discontinued) sodium,calcium,mag,pot oxybate (XYWAV) 0.5 gram/mL soln Dose: Take 4.5 grams at bedtime and 4.5 grams 2.5-4 hours after (9 grams total per night) Starting date: 04/10/2022 Ending date: 04/10/2022 (Discontinued) sodium,calcium,mag,pot oxybate (XYWAV) 0.5 gram/mL soln Dose: Take 4.5 grams at bedtime and 4.5 grams 2.5-4 hours after (9 grams total per night) Starting date: 04/10/2022 Ending date: 09/06/2022 PHYSICAL EXAMINATION: Virtual IMPRESSION: Narcolepsy type 1 Clinical Global Impression of Change ( CGI-C) Compared to the patient's condition at baseline, how much has the patient changed? Much improved PLAN: - Continue taking Xywav 4.5 grams twice per night as directed. - Start Nuvigil 150 mg one by mouth upon awakenings - Avoid driving when drowsy. 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 - Try to get at least 7-9 hours of sleep in a 24 hour period. Healthy diet and exercise can also promote better sleep. - Follow up in 3 months in the office. Recommend scheduling this appointment now to ensure the besttime for you. Drew Castellanos MD documented in this encounterMarietta [facility]05-24-2022 Miscellaneous Notes* Telephone Encounter - Elliot Castillo RN - 04/10/2022 12:24 PM EDT The following prescriptions have been called to [facility] pharmacy 04/10/2022 at 12:24 PM by Elliot Castillo RN. I spoke with Kim in the pharmacy. Signed Prescriptions Disp Refills sodium,calcium,mag,pot oxybate (XYWAV) 0.5 gram/mL soln 270 mL 5 Sig: Take 4.5 grams at bedtime and 4.5 grams 2.5-4 hours after (9 grams total per night) BILL Class: C-III MIKI: No Authorizing Provider: KAVON SNIDER * Addendum Note - Kavon Snider APRN.CNP - 04/10/2022 11:53 AM EDT Addended by: KAVON SNIDER on: 04/10/2022 11:53 AM Modules accepted: Orders * Telephone Encounter - Kavon Snider APRN.CNP - 04/10/2022 11:52 AM EDT PDMP website checked and validated. All prescriptions have been APPROPRIATELY filled. No suspiciousactivity was identified. 04/10/2022 by Kavon Snider APRN.LEAD FABRICATOR * Addendum Note - Elliot Castillo RN - 04/10/2022 11:01 AM EDT Addended by: ELLIOT CASTILLO RN on: 04/10/2022 11:01 AM Modules accepted: Orders * Telephone Encounter - Elliot Castillo RN - 04/10/2022 10:50 AM EDT MyChart message sent Sent to scheduling to call patient. * Telephone Encounter - Elliot Castillo RN - 04/06/2022 1:50 PM EDT sylvie 12/06/2021 fov Not Scheduled will send message to make in person visit for 06/[address] [place] and will send to scheduling IMPRESSION: Primary narcolepsy with cataplexy (primary encounter diagnosis) Pao Lion is a 50 year old female with a PMH of headaches, narcolepsy, chronic pain, hypothyroidism, dyslipidemia and obesity who presents via zoom for psg results. A Polysomnogram performed 06/29/2020 diagnosed primary snoring and was negative for NUHA. -Ms. Lion complains of worsening commodities that worsening her EDS. She also reports more frequent cataplexy events. She estimates TST to be about six hours long. Recommended increased sleep amount to 7-9 hours to see if this improves her symptoms as six hours is likely not sufficient for her. She reports she dozes off a couple times per day but not for more than fifteen minutes total. -She continues to tolerate Xywav well. She takes twice nightly as directed. Denies side effects. -She will follow up in person in six months due to new virtual visit prescribing laws. PLAN: - Continue taking Xywav as directed. -We discussed adding one hour to your total sleep time. - Avoid driving when drowsy. 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 - Try to get at least 7-9 hours of sleep in a 24 hour period. Healthy diet and exercise can also promote better sleep. - Follow up in six months in the office with Rosana Florence due to location, [place]. Recommend scheduling this appointment now to ensure the best time for you. Courtney Medina APRN.LAURI Snider APRN.LEAD FABRICATOR * Telephone Encounter - Rosario Reilly - 04/06/2022 1:43 PM EDT Physician: Agatha Call from pharmacy requesting refill. Please E-Scribe Last OV: 12/06/21 with Agatha Future OV: N/A with N/A Pending Prescriptions Disp Refills XYWAV 0.5 GRAM/ML ORAL SOLUTION 5 Sig: Take 4.5 grams at bedtime and 4.5 grams 2.5-4 hours after (9 grams total per night) BILL Class: C-III MIKI: No Pharmacy [facility]: [facility] History of Present illness Narrative* Palomo Davalos MD - 03/20/2022 3:34 PM EDT Follow-Up Onabotulinum Toxin A (BotoxTM) for Migraine Indication: Chronic Intractable Migraine Referral Expiration: 02/26/2023 Prior to the initiation of the FIRST treatment with Onabotulinum Toxin A, the patient reported the following average headache frequency over the past 3 MONTHS: Number of moderate-severe migraine days/month: 12 Number of mild migraine days/month: 13 Number of headache free days/month: 5 (120 headache-free hours) After treatment with Onabotulinum Toxin A: Number of moderate-severe migraine days/month: 4 Number of mild migraine days/month: 5 Number of headache free days/month: 21 (504 headache-free hours) Patient reduction in overall migraine days: Yes Patient reduction in moderate-severe migraine days: Yes Patient reduction of headache hours by 100 hours or more: Yes (reduction of 384 hours) Individual has obtained clinical benefit deemed significant by individual or prescriber (Y/N): Yes Patient's quality of life and ability to perform ADLs has improved (Y/N): Yes Wearing off: No HEADACHE SCORES: Headache Questions 02/19/2022 ER visits since last office visit: 0 Hospital stays since last office visit 0 Limited ADLs in the last month: 8 Days headache pain free in the last month: 22 Days per month with ALL of the following symptoms - decreased productivity, light sensitivity and nausea: 8 Initial improvement of headache after botox injection at last visit: Very much improved PRN medication usage in the last month: 8 Patient impression of improvement since last visit: Very much improved HIT-6 02/19/2022 HIT-6 64 (Severe impact) MARIA ESTHER - 2/7 SCORES 02/19/2022 MARIA ESTHER-2 Score 3 MARIA ESTHER-7 Score 5 PHQ-9 05/05/2021 05/05/2021 02/19/2022 Score 1 1 9 BP 112/76 (BP Site: Left Arm, BP Position: Sitting, BP Cuff Size: Regular Adult) Pulse 76 Patient name: Pao Lion : 1970 ALLERGIES Allergen Reactions Biaxin [Clarithromy* GI Upset Sutures Rash, Hives, Swelling, Itching Specifically, cat gut sutures Cymbalta [Duloxetin* Swelling Severe abdominal pain Demerol [Meperidine* Vomiting Indomethacin Swelling Had 4+ edema in legs and arms the day after taking a new prescription. Morphine Vomiting Naproxen GI Upset Penicillins Rash, Hives Vancomycin GI Upset Versed [Midazolam H* Vomiting Z Pack [Azithromyci* Rash, GI Upset UNIVERSAL PROTOCOL / SAFETY CHECKLIST Procedure: Onabotulinum toxin A for migraine Informed Consent Consent Obtained: Written [place] Protocol A moment to CARE was completed SIGN IN Personnel directly involved with the procedure wore the appropriate PPE Special Equipment: N/A Patient/Surrogate Stated/Verified: Patient name, Date of , Relevant allergies and Intended procedure TIME OUT Intended patient and procedure match the source document(s) Consent documented and matches the intended procedure No relevant labs, photos, and/or imaging studies were applicable for review. No correct side/site applicable for marking and visibility. No medications required for procedure. No fire risk assessment and interventions applicable. No implant(s) inserted. SIGN OUT No specimen collected. No instruments, equipment or retained foreign bodies applicable. Post-procedure follow-up management communicated and Plan of Care Visit completed when applicable Written Consent Obtained: Written Injection Sites Left (Units) Left (Sites) Right (Units) Right (Sites) TOTAL (Units) Used Car Make Ready Worker 5 1 5 1 10 Procerus Units: 5 Sites: 1 5 Frontalis 10 2 10 2 20 Temporalis 20 4 20 4 40 Occipitalis 15 3 15 3 30 Cervical PSP 10 2 10 2 20 Trapezius 15 3 15 3 30 Total Units used: 155 Total Units wasted: 45 Prior Therapies Duration of Use Dose Side effect Palomo Davalos MD [facility] Miscellaneous Notes* Telephone Encounter - Gareth Cruz RN - 02/26/2022 4:34 PM EDT Botox referral sent to pharmacy Gareth Cruz RN February 26, 2022 4:34 PM [facility] History of Present illness Narrative* Jackie Mcmahon CT - 09/07/2021 1:40 PM EDT Radiology Service Progress Note PATIENT NAME: Pao Lion DATE OF SERVICE: September 07, 2021 TIME: 1:45 PM PATIENT IDENTITY VERIFICATION COMPLETED USING TWO (2) IDENTIFIERS: Name and Date of confirmedby patient verbally. FALL SCREENING: Has the patient had 2 falls in the last year or 1 fall with injury or currently using an Ambulatory Assistive Device (Walker, Cane, Wheelchair, Crutches, etc.)? No PATIENT GENDER DATA: Female. status: : No status: NO. PATIENT RELEVANT IMPLANT DATA REVIEWED: Not Applicable RADIOLOGY DEPARTMENT: CT; Exam(s) Completed: Temporal Bones PERIPHERAL IV DATA: Not applicable SIGNED BY: MARILYNN Olivia September 07, 2021 1:45 PM documented in this encounter[address] History of Past illness Narrative* ProblemNoted DateResolved DzojLbqrrqxtq08documented as of this encounter (statuses as of 02/16/2022) [address] History of Past illness Narrative* ProblemNoted Date Resolved NivlCamwncqll37documented as of this encounter (statuses as of 02/26/2022) [address] History of Past illness Narrative* ProblemNoted Date Resolved KxciHqwfbqzvy72documented as of this encounter (statuses as of 03/20/2022) [address] History of Past illness Narrative* ProblemNoted Date Resolved PvgaLnuzzrqlh23documented as of this encounter (statuses as of 03/20/2022) [address] History of Past illness Narrative* ProblemNoted Date Resolved QaxoMmrmqyips98documented as of this encounter (statuses as of 04/10/2022) [address] History of Past illness Narrative* ProblemNoted Date Resolved XlmcYgguvnkqt79documented as of this encounter (statuses as of 07/13/2022) [address] History of Past illness Narrative* ProblemNoted Date Resolved YwafDbfjhsccs26documented as of this encounter (statuses as of 08/08/2022) [address] History of Past illness Narrative* ProblemNoted Date Resolved PwdaDsnsmfxoa69documented as of this encounter (statuses as of 09/17/2022) [address]2016 History of Past illness Narrative* ProblemNoted Date Resolved UvacDmqjkhykc43documented as of this encounter (statuses as of 09/21/2022) [address] History of Past illness Narrative* ProblemNoted Date Resolved WgzzGmpkuanzg28documented as of this encounter (statuses as of 10/09/2022) [address] History of Past illness Narrative* ProblemNoted Date Resolved GmrvGtugkvwef36documented as of this encounter (statuses as of 10/17/2022) [address] History of Past illness Narrative* ProblemNoted Date Resolved IwvxApxozieuk72documented as of this encounter (statuses as of 10/19/2022) [address] History of Past illness Narrative* ProblemNoted Date Resolved LpryMvmhwbdae91documented as of this encounter (statuses as of 10/24/2022) [address] History of Past illness Narrative* ProblemNoted Date Resolved ZtrqUhlvctnta65documented as of this encounter (statuses as of 10/25/2022) [address] History of Past illness Narrative* ProblemNoted Date Resolved FwktOwafsqyvg25documented as of this encounter (statuses as of 11/20/2022) [address] History of Past illness Narrative* ProblemNoted Date Resolved MpuzIqnybavyo20documented as of this encounter (statuses as of 11/21/2022) [address] History of Past illness Narrative* ProblemNoted Date Resolved UghdFjgxfncgt71documented as of this encounter (statuses as of 11/22/2022) [address] History of Past illness Narrative* ProblemNoted Date Resolved RfymGzwivtuaj30documented as of this encounter (statuses as of 11/22/2022) [address] History of Past illness Narrative* ProblemNoted Date Resolved ChjjQqzivzdmb69documented as of this encounter (statuses as of 11/23/2022) [address] History of Past illness Narrative* ProblemNoted Date Resolved OmawUkajgoxck44/19/201603/02/2016documented as of this encounter (statuses as of 12/18/2022) [address] History of Past illness Narrative* ProblemNoted Date Resolved YsuwEspmkvqyf22/19/201603/02/2016documented as of this encounter (statuses as of 12/31/2022) [address] History of Past illness Narrative* ProblemNoted Date Resolved YbpfEchaizyuv07/19/201603/02/2016documented as of this encounter (statuses as of 01/17/2023) [address] History of Past illness Narrative* ProblemNoted Date Resolved XjwoEvwjoccxq52documented as of this encounter (statuses as of 01/25/2023) [address] History of Past illness Narrative* ProblemNoted Date Resolved QiydGitfyyfhe88documented as of this encounter (statuses as of 01/26/2023) [address] History of Past illness Narrative* ProblemNoted Date Resolved FvukOtabuiauk57documented as of this encounter (statuses as of 01/28/2023) [address]2016 History of Past illness Narrative* ProblemNoted Date Resolved XjttZfnnjkxcw57documented as of this encounter (statuses as of 01/29/2023) [address] History of Past illness Narrative* ProblemNoted Date Resolved TzzdUicjtrvbp85/19/201603/02/2016documented as of this encounter (statuses as of 02/08/2023) [address]2016 History of Past illness Narrative* ProblemNoted Date Resolved VvfiYchqrxvtt49/19/201603/02/2016documented as of this encounter (statuses as of 02/23/2023) [address] History of Past illness Narrative* ProblemNoted Date Resolved VgkwFrdwuzpzx18/19/201603/02/2016documented as of this encounter (statuses as of 03/13/2023) [address]2016 History of Past illness Narrative* ProblemNoted Date Resolved IvdqAuozpucjj98documented as of this encounter (statuses as of 03/19/2023) [address] History of Past illness Narrative* ProblemNoted Date Resolved VanjOfmnbruvl97documented as of this encounter (statuses as of 03/20/2023) [address] History of Past illness Narrative* ProblemNoted Date Resolved VmggYloqhcpfw44documented as of this encounter (statuses as of 03/22/2023) [address] History of Past illness Narrative* ProblemNoted Date Resolved BpriVtxrepngo56documented as of this encounter (statuses as of 03/22/2023) [address] History of Past illness Narrative* ProblemNoted Date Diagnosed DateResolved BzmkFygxchcgh12documented as of this encounter (statuses as of 06/28/2023) [address] History of Past illness Narrative* ProblemNoted Date Diagnosed DateResolved TxwmOnfsepwma88documented as of this encounter (statuses as of 07/05/2023) [address] History of Past illness Narrative* ProblemNoted Date Diagnosed DateResolved XiicZaiwyzbpy92documented as of this encounter (statuses as of 07/24/2023) [address] History of Past illness Narrative* ProblemNoted Date Diagnosed DateResolved PwjpUhqixfibi02documented as of this encounter (statuses as of 08/04/2023) [address] History of Past illness Narrative* ProblemNoted Date Diagnosed DateResolved LzgoBndoxeecm97documented as of this encounter (statuses as of 09/10/2023) [address] History of Past illness Narrative* ProblemNoted Date Diagnosed DateResolved PwvgWahqoaage60/19/201603/02/2016documented as of this encounter (statuses as of 10/02/2023) [address]2016 History of Past illness Narrative* ProblemNoted Date Diagnosed DateResolved UundHwzfsgzbd24documented as of this encounter (statuses as of 12/30/2023) [address] History of Past illness Narrative* ProblemNoted Date Diagnosed DateResolved HkgkGvngfkxlo62documented as of this encounter (statuses as of 12/31/2023) [address] History of Past illness Narrative* ProblemNoted Date Diagnosed DateResolved QlmiBfzklcdof61documented as of this encounter (statuses as of 01/06/2024) [address] History of Past illness Narrative* ProblemNoted Date Diagnosed DateResolved ZtqxFudwqiext71documented as of this encounter (statuses as of 01/06/2024) [address]2016 History of Past illness Narrative* ProblemNoted Date Diagnosed DateResolved BkfwKlxlhkali67documented as of this encounter (statuses as of 01/16/2024) [address] History of Past illness Narrative* ProblemNoted Date Diagnosed DateResolved WscdFmtrrtuib49documented as of this encounter (statuses as of 03/04/2024) [facility] note* Diagnosis Hyperlipidemia, unspecified hyperlipidemia type- Primary Adrenal insufficiency (HCC) Glucocorticoid deficiency Hypothyroidism, adult Other specified acquired hypothyroidism Vitamin D deficiency Unspecified vitamin D deficiency [facility] [place] [facility]* Diagnosis Hyperlipidemia, unspecified hyperlipidemia type- Primary [facility] [place] [facility]* Diagnosis Chronic migraine without aura, with intractable migraine, so stated, with status migrainosus documented in this encounter [facility] note* Diagnosis Primary narcolepsy with cataplexy documented in this encounter [facility] note* Diagnosis Primary hypersomnia- Primary Persistent disorder of initiating or maintaining wakefulness [facility] [place] [facility]* Diagnosis Hyperlipidemia, unspecified hyperlipidemia type- Primary Unspecified hypothyroidism [facility] [place] [facility]* Diagnosis Chronic migraine without aura, with intractable migraine, so stated, with status migrainosus- Primary [facility] [place] [facility]* Diagnosis Primary narcolepsy with cataplexy [facility] [place] [facility]* Diagnosis Primary narcolepsy with cataplexy documented in this encounter [facility] note* Diagnosis Hypothyroidism, adult- Primary Other specified acquired hypothyroidism documented in this encounter [facility] note* Diagnosis Primary narcolepsy with cataplexy [facility] [place] [facility]* Diagnosis Narcolepsy with cataplexy- Primary [facility] [place] [facility]* Diagnosis Hypothyroidism, unspecified type- Primary documented [facility] [place] noteNo assessment information availableKet[facility] Work Phone: Evaluation note* Diagnosis Chronic migraine without aura, with intractable migraine, so stated, with status migrainosus- Primary [facility] [place] [facility]* Diagnosis Primary narcolepsy with cataplexy- Primary [facility] [place] [facility]* Diagnosis Brachial plexus disorders- Primary Brachial plexus lesions TOS (thoracic outlet syndrome) Brachial plexus lesions Myofascial pain Mylagia and myositis, unspecified Arthropathy of spinal facet joint Spondylosis of unspecified site without mention of myelopathy Chronic daily headache Headache Cervicogenic headache Headache Neuropathic pain Neuralgia, neuritis, and radiculitis, unspecified documented in this encounter [facility] note* Diagnosis Primary narcolepsy with cataplexy- Primary [facility] [place] [facility]* Diagnosis Brachial plexus disorders- Primary Brachial plexus lesions TOS (thoracic outlet syndrome) Brachial plexus lesions Arthropathy of spinal facet joint Spondylosis of unspecified site without mention of myelopathy Cervicogenic headache Headache Chronic daily headache Headache Neuropathic pain Neuralgia, neuritis, and radiculitis, unspecified Myofascial pain Mylagia and myositis, unspecified [facility] [place] [facility]* Diagnosis Chronic migraine without aura, with intractable migraine, so stated, with status migrainosus- Primary Supraventricular tachycardia (HCC) Other specified cardiac dysrhythmias [facility] [place] [facility]* Diagnosis Cholesteatoma, unspecified laterality Conductive hearing loss, bilateral Tinnitus of both ears Unspecified tinnitus documented [facility] [place] [facility]* Diagnosis Narcolepsy with cataplexy- Primary [facility] [place] [facility]* Diagnosis Chronic migraine without aura, with intractable migraine, so stated, with status migrainosus- Primary Supraventricular tachycardia (HCC) Other specified cardiac dysrhythmias [facility] [place] [facility]* Diagnosis Hemorrhoids, unspecified hemorrhoid type- Primary [facility] [place] [facility]* Diagnosis Narcolepsy with cataplexy- Primary Long-term current use of stimulant documented [facility] [place] [facility]* Diagnosis Lesion of lateral popliteal nerve, left lower limb- Primary Left foot drop Other acquired deformity of ankle and foot [facility] [place] [facility]* Diagnosis Chronic migraine without aura, with intractable migraine, so stated, with status migrainosus- Primary [facility] [place] [facility]* Diagnosis Left foot drop- Primary Other acquired deformity of ankle and foot [facility] [place] [facility]* Diagnosis Narcolepsy without cataplexy- Primary [facility] [place] [facility]* Diagnosis Chronic migraine without aura, with intractable migraine, so stated, with status migrainosus- Primary Supraventricular tachycardia (HCC) Other specified cardiac dysrhythmias documented [facility] this [facility] [place] [facility]* Diagnosis Narcolepsy with cataplexy- Primary Long-term current use of stimulant Narcolepsy without cataplexy documented [facility] this [facility] [place] [facility]* Diagnosis Primary narcolepsy with cataplexy- Primary [facility] [place] [facility]* Diagnosis Narcolepsy without cataplexy documented [facility] [place] [facility]* Diagnosis Internal hemorrhoids with complication- Primary Internal hemorrhoids with other complication Hemorrhoids, unspecified hemorrhoid type [facility] [place] [facility]* Diagnosis Pre-op evaluation- Primary Preoperative examination, unspecified Trigeminal neuralgia POTS (postural orthostatic tachycardia syndrome) Tachycardia, unspecified Sleep apnea, unspecified type Hypothyroidism, unspecified type Adrenal insufficiency (HCC) Glucocorticoid deficiency Dyslipidemia Other and unspecified hyperlipidemia Hemorrhoids, unspecified hemorrhoid type * Assessment & Plan Note - Mirta Gonzalez PA-C - 05/28/2024 11:21 AM EDT Associated Problem(s): Dyslipidemia Assessment: taking zetia and Repatha * Assessment & Plan Note - Mirta Gonzalez PA-C - 05/28/2024 11:21 AM EDT Associated Problem(s): Adrenal insufficiency (HCC) Assessment: follows with Dr. Jose Laughlin * Assessment & Plan Note - Mirta Gonzalez PA-C - 05/28/2024 11:19 AM EDT Associated Problem(s): Hypothyroidism Assessment: taking levothyroxine and cytomel, follows with Endo * Assessment & Plan Note - Mirta Gonzalez PA-C - 05/28/2024 11:18 AM EDT Associated Problem(s): Sleep apnea Assessment: denies, not using CPAP * Assessment & Plan Note - Mirta Gonzalez PA-C - 05/28/2024 11:17 AM EDT Associated Problem(s): POTS (postural orthostatic tachycardia syndrome) Assessment: taking DDAVP, following with Cardiology * Assessment & Plan Note - Mirta Gonzalez PA-C - 05/28/2024 11:15 AM EDT Associated Problem(s): Trigeminal neuralgia Assessment: taking carbamazepine PRN, no recent use documented in this encounter [facility] note* Diagnosis Hemorrhoids, unspecified hemorrhoid type- Primary documented in this encounter [facility] note* Diagnosis Other chronic suppurative otitis media of both ears- Primary documented in this encounter [facility] note* Diagnosis Conductive hearing loss, bilateral- Primary Chronic suppurative otitis media of both ears, unspecified otitis media location documented in this encounter [facility] note* Diagnosis Preop examination- Primary Preoperative examination, unspecified Discontinuity of ear ossicles, right Conductive hearing loss, bilateral Trigeminal neuralgia Intractable chronic migraine without aura and without status migrainosus Chronic migraine without aura, with intractable migraine, so stated, without mention of status migrainosus Adrenal insufficiency (HCC) Glucocorticoid deficiency POTS (postural orthostatic tachycardia syndrome) Tachycardia, unspecified Sleep apnea, unspecified type Hypothyroidism, unspecified type Pre-op evaluation- Primary Preoperative examination, unspecified Trigeminal neuralgia POTS (postural orthostatic tachycardia syndrome) Tachycardia, unspecified Sleep apnea, unspecified type Hypothyroidism, unspecified type Adrenal insufficiency (HCC) Glucocorticoid deficiency Dyslipidemia Other and unspecified hyperlipidemia Right inguinal hernia- Primary Inguinal hernia without mention of obstruction or gangrene, unilateral or unspecified, (not specified as recurrent) Adrenal insufficiency (HCC) Glucocorticoid deficiency Right inguinal hernia Inguinal hernia without mention of obstruction or gangrene, unilateral or unspecified, (not specified as recurrent) documented in this encounter [facility] note* Diagnosis Preop examination- Primary Preoperative examination, unspecified Discontinuity of ear ossicles, right Conductive hearing loss, bilateral Trigeminal neuralgia Intractable chronic migraine without aura and without status migrainosus Chronic migraine without aura, with intractable migraine, so stated, without mention of status migrainosus Adrenal insufficiency (HCC) Glucocorticoid deficiency POTS (postural orthostatic tachycardia syndrome) Tachycardia, unspecified Sleep apnea, unspecified type Hypothyroidism, unspecified type Pre-op evaluation- Primary Preoperative examination, unspecified Trigeminal neuralgia POTS (postural orthostatic tachycardia syndrome) Tachycardia, unspecified Sleep apnea, unspecified type Hypothyroidism, unspecified type Adrenal insufficiency (HCC) Glucocorticoid deficiency Dyslipidemia Other and unspecified hyperlipidemia Narcolepsy with cataplexy- Primary Long-term current use of stimulant Narcolepsy without cataplexy Right inguinal hernia Inguinal hernia without mention of obstruction or gangrene, unilateral or unspecified, (not specified as recurrent) documented in this encounter [facility] note* Diagnosis Preop examination- Primary Preoperative examination, unspecified Discontinuity of ear ossicles, right Conductive hearing loss, bilateral Trigeminal neuralgia Intractable chronic migraine without aura and without status migrainosus Chronic migraine without aura, with intractable migraine, so stated, without mention of status migrainosus Adrenal insufficiency (HCC) Glucocorticoid deficiency POTS (postural orthostatic tachycardia syndrome) Tachycardia, unspecified Sleep apnea, unspecified type Hypothyroidism, unspecified type Pre-op evaluation- Primary Preoperative examination, unspecified Trigeminal neuralgia POTS (postural orthostatic tachycardia syndrome) Tachycardia, unspecified Sleep apnea, unspecified type Hypothyroidism, unspecified type Adrenal insufficiency (HCC) Glucocorticoid deficiency Dyslipidemia Other and unspecified hyperlipidemia Chronic migraine without aura, with intractable migraine, so stated, with status migrainosus- Primary Right inguinal hernia Inguinal hernia without mention of obstruction or gangrene, unilateral or unspecified, (not specified as recurrent) documented in this encounter [facility] note* Diagnosis Preop examination- Primary Preoperative examination, unspecified Discontinuity of ear ossicles, right Conductive hearing loss, bilateral Trigeminal neuralgia Intractable chronic migraine without aura and without status migrainosus Chronic migraine without aura, with intractable migraine, so stated, without mention of status migrainosus Adrenal insufficiency (HCC) Glucocorticoid deficiency POTS (postural orthostatic tachycardia syndrome) Tachycardia, unspecified Sleep apnea, unspecified type Hypothyroidism, unspecified type Pre-op evaluation- Primary Preoperative examination, unspecified Trigeminal neuralgia POTS (postural orthostatic tachycardia syndrome) Tachycardia, unspecified Sleep apnea, unspecified type Hypothyroidism, unspecified type Adrenal insufficiency (HCC) Glucocorticoid deficiency Dyslipidemia Other and unspecified hyperlipidemia Pre-op evaluation- Primary Preoperative examination, unspecified POTS (postural orthostatic tachycardia syndrome) Tachycardia, unspecified Adrenal insufficiency (HCC) Glucocorticoid deficiency Hypothyroidism, unspecified type Dyslipidemia Other and unspecified hyperlipidemia Primary narcolepsy with cataplexy History of diverticulitis Trigeminal neuralgia Right inguinal hernia Inguinal hernia without mention of obstruction or gangrene, unilateral or unspecified, (not specified as recurrent) * Assessment & Plan Note - Sania Bourne APRN.LEAD FABRICATOR - 07/16/2024 3:25 PM EDT Associated Problem(s): Trigeminal neuralgia Assessment: Takes medication PRN, has not needed recently * Assessment & Plan Note - Sania Bourne APRN.CNP - 07/16/2024 3:25 PM EDT Associated Problem(s): History of diverticulitis Assessment: Diagnosed with diverticulitis 07/13 and placed on Augmentin States symptoms have improved * Assessment & Plan Note - Sania Bourne APRN.CNP - 07/16/2024 3:24 PM EDT Associated Problem(s): Narcolepsy Assessment: Managed on Xywav and Lisdexamfetamine Following with neurology- last visit 07/09/2024 * Assessment & Plan Note - Sania Bourne APRN.CNP - 07/16/2024 3:23 PM EDT Associated Problem(s): Dyslipidemia Assessment: Managed on medication by PCP and cardiology * Assessment & Plan Note - Sania Bourne APRN.CNP - 07/16/2024 3:23 PM EDT Associated Problem(s): Hypothyroidism Assessment: Managed on medication by endocrinology * Assessment & Plan Note - Sania Bourne APRN.CNP - 07/16/2024 3:22 PM EDT Associated Problem(s): Adrenal insufficiency (HCC) Assessment: Follows with Dr. Cheek in [place], [place]- records requested No current medication States takes a stress dose of 100mg Solumedrol prior to surgeries * Assessment & Plan Note - Sania Bourne APRN.CNP - 07/16/2024 3:21 PM EDT Associated Problem(s): POTS (postural orthostatic tachycardia syndrome) Assessment: On DDAVP Following with cardiology at [facility]- last OV 01/31/2024- stable Denies recent syncope or increased symptoms [facility] [place] [facility]* Diagnosis Preop examination- Primary Preoperative examination, unspecified Discontinuity of ear ossicles, right Conductive hearing loss, bilateral Trigeminal neuralgia Intractable chronic migraine without aura and without status migrainosus Chronic migraine without aura, with intractable migraine, so stated, without mention of status migrainosus Adrenal insufficiency (HCC) Glucocorticoid deficiency POTS (postural orthostatic tachycardia syndrome) Tachycardia, unspecified Sleep apnea, unspecified type Hypothyroidism, unspecified type Pre-op evaluation- Primary Preoperative examination, unspecified Trigeminal neuralgia POTS (postural orthostatic tachycardia syndrome) Tachycardia, unspecified Sleep apnea, unspecified type Hypothyroidism, unspecified type Adrenal insufficiency (HCC) Glucocorticoid deficiency Dyslipidemia Other and unspecified hyperlipidemia Pre-op evaluation- Primary Preoperative examination, unspecified POTS (postural orthostatic tachycardia syndrome) Tachycardia, unspecified Adrenal insufficiency (HCC) Glucocorticoid deficiency Hypothyroidism, unspecified type Dyslipidemia Other and unspecified hyperlipidemia Primary narcolepsy with cataplexy History of diverticulitis Trigeminal neuralgia Postoperative hematoma of musculoskeletal structure following non- musculoskeletal procedure- Primary [facility] [place] [facility]* Diagnosis Other atopic dermatitis- Primary Molluscum contagiosum [facility] Preop examination- Primary Preoperative examination, unspecified Discontinuity of ear ossicles, right Conductive hearing loss, bilateral Trigeminal neuralgia Intractable chronic migraine without aura and without status migrainosus Chronic migraine without aura, with intractable migraine, so stated, without mention of status migrainosus Adrenal insufficiency (HCC) Glucocorticoid deficiency POTS (postural orthostatic tachycardia syndrome) Tachycardia, unspecified Sleep apnea, unspecified type Hypothyroidism, unspecified type Pre-op evaluation- Primary Preoperative examination, unspecified Trigeminal neuralgia POTS (postural orthostatic tachycardia syndrome) Tachycardia, unspecified Sleep apnea, unspecified type Hypothyroidism, unspecified type Adrenal insufficiency (HCC) Glucocorticoid deficiency Dyslipidemia Other and unspecified hyperlipidemia Pre-op evaluation- Primary Preoperative examination, unspecified POTS (postural orthostatic tachycardia syndrome) Tachycardia, unspecified Adrenal insufficiency (HCC) Glucocorticoid deficiency Hypothyroidism, unspecified type Dyslipidemia Other and unspecified hyperlipidemia Primary narcolepsy with cataplexy History of diverticulitis Trigeminal neuralgia S/P right inguinal hernia repair- Primary Other postprocedural status Allergic reaction, initial encounter [facility] Diagnosis Preop examination- Primary Preoperative examination, unspecified Discontinuity of ear ossicles, right Conductive hearing loss, bilateral Trigeminal neuralgia Intractable chronic migraine without aura and without status migrainosus Chronic migraine without aura, with intractable migraine, so stated, without mention of status migrainosus Adrenal insufficiency (HCC) Glucocorticoid deficiency POTS (postural orthostatic tachycardia syndrome) Tachycardia, unspecified Sleep apnea, unspecified type Hypothyroidism, unspecified type Pre-op evaluation- Primary Preoperative examination, unspecified Trigeminal neuralgia POTS (postural orthostatic tachycardia syndrome) Tachycardia, unspecified Sleep apnea, unspecified type Hypothyroidism, unspecified type Adrenal insufficiency (HCC) Glucocorticoid deficiency Dyslipidemia Other and unspecified hyperlipidemia Pre-op evaluation- Primary Preoperative examination, unspecified POTS (postural orthostatic tachycardia syndrome) Tachycardia, unspecified Adrenal insufficiency (HCC) Glucocorticoid deficiency Hypothyroidism, unspecified type Dyslipidemia Other and unspecified hyperlipidemia Primary narcolepsy with cataplexy History of diverticulitis Trigeminal neuralgia Chronic migraine without aura, with intractable migraine, so stated, with status migrainosus- Primary [facility] [place] [facility]* Diagnosis Encounter for gynecological examination without abnormal finding- Primary Screening for malignant neoplasm of cervix Screening for malignant neoplasm of the cervix Encounter for screening mammogram for malignant neoplasm of breast Postmenopausal HRT (hormone replacement therapy) Need for prophylactic hormone replacement therapy (postmenopausal) [facility] Preop examination- Primary Preoperative examination, unspecified Discontinuity of ear ossicles, right Conductive hearing loss, bilateral Trigeminal neuralgia Intractable chronic migraine without aura and without status migrainosus Chronic migraine without aura, with intractable migraine, so stated, without mention of status migrainosus Adrenal insufficiency (HCC) Glucocorticoid deficiency POTS (postural orthostatic tachycardia syndrome) Tachycardia, unspecified Sleep apnea, unspecified type Hypothyroidism, unspecified type Pre-op evaluation- Primary Preoperative examination, unspecified Trigeminal neuralgia POTS (postural orthostatic tachycardia syndrome) Tachycardia, unspecified Sleep apnea, unspecified type Hypothyroidism, unspecified type Adrenal insufficiency (HCC) Glucocorticoid deficiency Dyslipidemia Other and unspecified hyperlipidemia Pre-op evaluation- Primary Preoperative examination, unspecified POTS (postural orthostatic tachycardia syndrome) Tachycardia, unspecified Adrenal insufficiency (HCC) Glucocorticoid deficiency Hypothyroidism, unspecified type Dyslipidemia Other and unspecified hyperlipidemia Primary narcolepsy with cataplexy History of diverticulitis Trigeminal neuralgia Primary narcolepsy with cataplexy [facility] [place] [facility]* Diagnosis Preop examination- Primary Preoperative examination, unspecified Discontinuity of ear ossicles, right Conductive hearing loss, bilateral Trigeminal neuralgia Intractable chronic migraine without aura and without status migrainosus Chronic migraine without aura, with intractable migraine, so stated, without mention of status migrainosus Adrenal insufficiency (HCC) Glucocorticoid deficiency POTS (postural orthostatic tachycardia syndrome) Tachycardia, unspecified Sleep apnea, unspecified type Hypothyroidism, unspecified type Pre-op evaluation- Primary Preoperative examination, unspecified Trigeminal neuralgia POTS (postural orthostatic tachycardia syndrome) Tachycardia, unspecified Sleep apnea, unspecified type Hypothyroidism, unspecified type Adrenal insufficiency (HCC) Glucocorticoid deficiency Dyslipidemia Other and unspecified hyperlipidemia Pre-op evaluation- Primary Preoperative examination, unspecified POTS (postural orthostatic tachycardia syndrome) Tachycardia, unspecified Adrenal insufficiency (HCC) Glucocorticoid deficiency Hypothyroidism, unspecified type Dyslipidemia Other and unspecified hyperlipidemia Primary narcolepsy with cataplexy History of diverticulitis Trigeminal neuralgia Narcolepsy with cataplexy- Primary [facility] [place] [facility]* Diagnosis Chronic cough- Primary [facility] Diagnosis Preop examination- Primary Preoperative examination, unspecified Discontinuity of ear ossicles, right Conductive hearing loss, bilateral Trigeminal neuralgia Intractable chronic migraine without aura and without status migrainosus Chronic migraine without aura, with intractable migraine, so stated, without mention of status migrainosus Adrenal insufficiency (HCC) Glucocorticoid deficiency POTS (postural orthostatic tachycardia syndrome) Tachycardia, unspecified Sleep apnea, unspecified type Hypothyroidism, unspecified type Pre-op evaluation- Primary Preoperative examination, unspecified Trigeminal neuralgia POTS (postural orthostatic tachycardia syndrome) Tachycardia, unspecified Sleep apnea, unspecified type Hypothyroidism, unspecified type Adrenal insufficiency (HCC) Glucocorticoid deficiency Dyslipidemia Other and unspecified hyperlipidemia Pre-op evaluation- Primary Preoperative examination, unspecified POTS (postural orthostatic tachycardia syndrome) Tachycardia, unspecified Adrenal insufficiency (HCC) Glucocorticoid deficiency Hypothyroidism, unspecified type Dyslipidemia Other and unspecified hyperlipidemia Primary narcolepsy with cataplexy History of diverticulitis Trigeminal neuralgia Narcolepsy and cataplexy- Primary Narcolepsy with cataplexy documented in this encounter [facility] note* Diagnosis Preop examination- Primary Preoperative examination, unspecified Discontinuity of ear ossicles, right Conductive hearing loss, bilateral Trigeminal neuralgia Intractable chronic migraine without aura and without status migrainosus Chronic migraine without aura, with intractable migraine, so stated, without mention of status migrainosus Adrenal insufficiency (HCC) Glucocorticoid deficiency POTS (postural orthostatic tachycardia syndrome) Tachycardia, unspecified Sleep apnea, unspecified type Hypothyroidism, unspecified type Pre-op evaluation- Primary Preoperative examination, unspecified Trigeminal neuralgia POTS (postural orthostatic tachycardia syndrome) Tachycardia, unspecified Sleep apnea, unspecified type Hypothyroidism, unspecified type Adrenal insufficiency (HCC) Glucocorticoid deficiency Dyslipidemia Other and unspecified hyperlipidemia Pre-op evaluation- Primary Preoperative examination, unspecified POTS (postural orthostatic tachycardia syndrome) Tachycardia, unspecified Adrenal insufficiency (HCC) Glucocorticoid deficiency Hypothyroidism, unspecified type Dyslipidemia Other and unspecified hyperlipidemia Primary narcolepsy with cataplexy History of diverticulitis Trigeminal neuralgia Chronic migraine without aura, with intractable migraine, so stated, with status migrainosus- Primary documented in this encounter [facility] note* Diagnosis Preop examination- Primary Preoperative examination, unspecified Discontinuity of ear ossicles, right Conductive hearing loss, bilateral Trigeminal neuralgia Intractable chronic migraine without aura and without status migrainosus Chronic migraine without aura, with intractable migraine, so stated, without mention of status migrainosus Adrenal insufficiency (HCC) Glucocorticoid deficiency POTS (postural orthostatic tachycardia syndrome) Tachycardia, unspecified Sleep apnea, unspecified type Hypothyroidism, unspecified type Pre-op evaluation- Primary Preoperative examination, unspecified Trigeminal neuralgia POTS (postural orthostatic tachycardia syndrome) Tachycardia, unspecified Sleep apnea, unspecified type Hypothyroidism, unspecified type Adrenal insufficiency (HCC) Glucocorticoid deficiency Dyslipidemia Other and unspecified hyperlipidemia Pre-op evaluation- Primary Preoperative examination, unspecified POTS (postural orthostatic tachycardia syndrome) Tachycardia, unspecified Adrenal insufficiency (HCC) Glucocorticoid deficiency Hypothyroidism, unspecified type Dyslipidemia Other and unspecified hyperlipidemia Primary narcolepsy with cataplexy History of diverticulitis Trigeminal neuralgia Tingling- Primary Disturbance of skin sensation Burning sensation Disturbance of skin sensation [facility] Diagnosis Supraventricular tachycardia (CMS-HCC)- Primary Other specified cardiac dysrhythmias Primary adrenocortical insufficiency (CMS-HCC) Glucocorticoid deficiency Fibromyalgia Unspecified myalgia and myositis Migraine with aura and without status migrainosus, not intractable Encounter to establish care Diverticulitis Diverticulitis of colon (without mention of hemorrhage) Trigeminal neuralgia Primary narcolepsy with cataplexy Muscle spasm Spasm of muscle [facility] Diagnosis Preop examination- Primary Preoperative examination, unspecified Discontinuity of ear ossicles, right Conductive hearing loss, bilateral Trigeminal neuralgia Intractable chronic migraine without aura and without status migrainosus Chronic migraine without aura, with intractable migraine, so stated, without mention of status migrainosus Adrenal insufficiency (HCC) Glucocorticoid deficiency POTS (postural orthostatic tachycardia syndrome) Tachycardia, unspecified Sleep apnea, unspecified type Hypothyroidism, unspecified type Pre-op evaluation- Primary Preoperative examination, unspecified Trigeminal neuralgia POTS (postural orthostatic tachycardia syndrome) Tachycardia, unspecified Sleep apnea, unspecified type Hypothyroidism, unspecified type Adrenal insufficiency (HCC) Glucocorticoid deficiency Dyslipidemia Other and unspecified hyperlipidemia Pre-op evaluation- Primary Preoperative examination, unspecified POTS (postural orthostatic tachycardia syndrome) Tachycardia, unspecified Adrenal insufficiency (HCC) Glucocorticoid deficiency Hypothyroidism, unspecified type Dyslipidemia Other and unspecified hyperlipidemia Primary narcolepsy with cataplexy History of diverticulitis Trigeminal neuralgia Narcolepsy and cataplexy Narcolepsy with cataplexy [facility]* Diagnosis Fibromyalgia- Primary Unspecified myalgia and myositis Small fiber neuropathy [facility] Diagnosis Fibromyalgia- Primary Unspecified myalgia and myositis Small fiber neuropathy Muscle spasm Spasm of muscle [facility] Diagnosis Preop examination- Primary Preoperative examination, unspecified Discontinuity of ear ossicles, right Conductive hearing loss, bilateral Trigeminal neuralgia Intractable chronic migraine without aura and without status migrainosus Chronic migraine without aura, with intractable migraine, so stated, without mention of status migrainosus Adrenal insufficiency (HCC) Glucocorticoid deficiency POTS (postural orthostatic tachycardia syndrome) Tachycardia, unspecified Sleep apnea, unspecified type Hypothyroidism, unspecified type Pre-op evaluation- Primary Preoperative examination, unspecified Trigeminal neuralgia POTS (postural orthostatic tachycardia syndrome) Tachycardia, unspecified Sleep apnea, unspecified type Hypothyroidism, unspecified type Adrenal insufficiency (HCC) Glucocorticoid deficiency Dyslipidemia Other and unspecified hyperlipidemia Pre-op evaluation- Primary Preoperative examination, unspecified POTS (postural orthostatic tachycardia syndrome) Tachycardia, unspecified Adrenal insufficiency (HCC) Glucocorticoid deficiency Hypothyroidism, unspecified type Dyslipidemia Other and unspecified hyperlipidemia Primary narcolepsy with cataplexy History of diverticulitis Trigeminal neuralgia Narcolepsy and cataplexy Narcolepsy with cataplexy [facility] [place] [facility]* Diagnosis Preop examination- Primary Preoperative examination, unspecified Discontinuity of ear ossicles, right Conductive hearing loss, bilateral Trigeminal neuralgia Intractable chronic migraine without aura and without status migrainosus Chronic migraine without aura, with intractable migraine, so stated, without mention of status migrainosus Adrenal insufficiency (HCC) Glucocorticoid deficiency POTS (postural orthostatic tachycardia syndrome) Tachycardia, unspecified Sleep apnea, unspecified type Hypothyroidism, unspecified type Pre-op evaluation- Primary Preoperative examination, unspecified Trigeminal neuralgia POTS (postural orthostatic tachycardia syndrome) Tachycardia, unspecified Sleep apnea, unspecified type Hypothyroidism, unspecified type Adrenal insufficiency (HCC) Glucocorticoid deficiency Dyslipidemia Other and unspecified hyperlipidemia Pre-op evaluation- Primary Preoperative examination, unspecified POTS (postural orthostatic tachycardia syndrome) Tachycardia, unspecified Adrenal insufficiency (HCC) Glucocorticoid deficiency Hypothyroidism, unspecified type Dyslipidemia Other and unspecified hyperlipidemia Primary narcolepsy with cataplexy History of diverticulitis Trigeminal neuralgia External hemorrhoid, thrombosed- Primary External thrombosed hemorrhoids [facility] [place] [facility]* Diagnosis Bronchitis- Primary Bronchitis, not specified as acute or chronic [facility] Diagnosis Preop examination- Primary Preoperative examination, unspecified Discontinuity of ear ossicles, right Conductive hearing loss, bilateral Trigeminal neuralgia Intractable chronic migraine without aura and without status migrainosus Chronic migraine without aura, with intractable migraine, so stated, without mention of status migrainosus Adrenal insufficiency (HCC) Glucocorticoid deficiency POTS (postural orthostatic tachycardia syndrome) Tachycardia, unspecified Sleep apnea, unspecified type Hypothyroidism, unspecified type Pre-op evaluation- Primary Preoperative examination, unspecified Trigeminal neuralgia POTS (postural orthostatic tachycardia syndrome) Tachycardia, unspecified Sleep apnea, unspecified type Hypothyroidism, unspecified type Adrenal insufficiency (HCC) Glucocorticoid deficiency Dyslipidemia Other and unspecified hyperlipidemia Pre-op evaluation- Primary Preoperative examination, unspecified POTS (postural orthostatic tachycardia syndrome) Tachycardia, unspecified Adrenal insufficiency (HCC) Glucocorticoid deficiency Hypothyroidism, unspecified type Dyslipidemia Other and unspecified hyperlipidemia Primary narcolepsy with cataplexy (HCC) History of diverticulitis Trigeminal neuralgia Narcolepsy and cataplexy (HCC) Narcolepsy with cataplexy Long-term current use of stimulant [facility] Diagnosis Fibromyalgia- Primary Unspecified myalgia and myositis Chronic midline low back pain with bilateral sciatica Cervical radiculopathy Brachial neuritis or radiculitis nos Trigeminal neuralgia [facility] Pre[facility] examination- Primary Preoperative examination, unspecified Discontinuity of ear ossicles, right Conductive hearing loss, bilateral Trigeminal neuralgia Intractable chronic migraine without aura and without status migrainosus Chronic migraine without aura, with intractable migraine, so stated, without mention of status migrainosus Adrenal insufficiency (HCC) Glucocorticoid deficiency POTS (postural orthostatic tachycardia syndrome) Tachycardia, unspecified Sleep apnea, unspecified type Hypothyroidism, unspecified type Pre-op evaluation- Primary Preoperative examination, unspecified Trigeminal neuralgia POTS (postural orthostatic tachycardia syndrome) Tachycardia, unspecified Sleep apnea, unspecified type Hypothyroidism, unspecified type Adrenal insufficiency (HCC) Glucocorticoid deficiency Dyslipidemia Other and unspecified hyperlipidemia Pre-op evaluation- Primary Preoperative examination, unspecified POTS (postural orthostatic tachycardia syndrome) Tachycardia, unspecified Adrenal insufficiency (HCC) Glucocorticoid deficiency Hypothyroidism, unspecified type Dyslipidemia Other and unspecified hyperlipidemia Primary narcolepsy with cataplexy (HCC) History of diverticulitis Trigeminal neuralgia Chronic migraine without aura, with intractable migraine, so stated, with status migrainosus- Primary [facility] [place] [facility]* Diagnosis Medicare annual wellness visit, subsequent- Primary Fibromyalgia Unspecified myalgia and myositis Trigeminal neuralgia Encounter for screening mammogram for malignant neoplasm of breast Former smoker Personal history of tobacco use, presenting hazards to health Encounter for screening for malignant neoplasm of lung in former smoker who quit in past 15 years with 20 pack year history or greater Liver lesion Other specified disorders of liver Non-alcoholic fatty liver disease [facility] Diagnosis Fibromyalgia Unspecified myalgia and myositis Cervical radiculopathy Brachial neuritis or radiculitis nos Chronic midline low back pain with bilateral sciatica Encounter for screening mammogram for malignant neoplasm of breast [facility] Diagnosis Preop examination- Primary Preoperative examination, unspecified Discontinuity of ear ossicles, right Conductive hearing loss, bilateral Trigeminal neuralgia Intractable chronic migraine without aura and without status migrainosus Chronic migraine without aura, with intractable migraine, so stated, without mention of status migrainosus Adrenal insufficiency (HCC) Glucocorticoid deficiency POTS (postural orthostatic tachycardia syndrome) Tachycardia, unspecified Sleep apnea, unspecified type Hypothyroidism, unspecified type Pre-op evaluation- Primary Preoperative examination, unspecified Trigeminal neuralgia POTS (postural orthostatic tachycardia syndrome) Tachycardia, unspecified Sleep apnea, unspecified type Hypothyroidism, unspecified type Adrenal insufficiency (HCC) Glucocorticoid deficiency Dyslipidemia Other and unspecified hyperlipidemia Pre-op evaluation- Primary Preoperative examination, unspecified POTS (postural orthostatic tachycardia syndrome) Tachycardia, unspecified Adrenal insufficiency (HCC) Glucocorticoid deficiency Hypothyroidism, unspecified type Dyslipidemia Other and unspecified hyperlipidemia Primary narcolepsy with cataplexy (HCC) History of diverticulitis Trigeminal neuralgia Primary narcolepsy with cataplexy (HCC) [facility] Diagnosis Diverticulitis- Primary Diverticulitis of colon (without mention of hemorrhage) [facility] Diagnosis Preop examination- Primary Preoperative examination, unspecified Discontinuity of ear ossicles, right Conductive hearing loss, bilateral Trigeminal neuralgia Intractable chronic migraine without aura and without status migrainosus Chronic migraine without aura, with intractable migraine, so stated, without mention of status migrainosus Adrenal insufficiency (HCC) Glucocorticoid deficiency POTS (postural orthostatic tachycardia syndrome) Tachycardia, unspecified Sleep apnea, unspecified type Hypothyroidism, unspecified type Pre-op evaluation- Primary Preoperative examination, unspecified Trigeminal neuralgia POTS (postural orthostatic tachycardia syndrome) Tachycardia, unspecified Sleep apnea, unspecified type Hypothyroidism, unspecified type Adrenal insufficiency (HCC) Glucocorticoid deficiency Dyslipidemia Other and unspecified hyperlipidemia Pre-op evaluation- Primary Preoperative examination, unspecified POTS (postural orthostatic tachycardia syndrome) Tachycardia, unspecified Adrenal insufficiency (HCC) Glucocorticoid deficiency Hypothyroidism, unspecified type Dyslipidemia Other and unspecified hyperlipidemia Primary narcolepsy with cataplexy (HCC) History of diverticulitis Trigeminal neuralgia Acute diverticulitis- Primary Diverticulitis of colon (without mention of hemorrhage) Small fiber neuropathy Unspecified hereditary and idiopathic peripheral neuropathy Liver lesion Other specified disorders of liver documented [facility] [place] [facility]* Diagnosis Lung nodule- Primary Other diseases of lung, not elsewhere classified [facility] [place] [facility] Diagnosis Generalized abdominal pain- Primary Abdominal pain, generalized Nausea and vomiting, unspecified vomiting type Right upper quadrant pain Abdominal pain, right upper quadrant Migraine with aura and without status migrainosus, not intractable [facility] [place] [facility]* Diagnosis Lung nodules- Primary Other diseases of lung, not elsewhere classified [facility] [place] [facility]* Diagnosis Preop examination- Primary Preoperative examination, unspecified Discontinuity of ear ossicles, right Conductive hearing loss, bilateral Trigeminal neuralgia Intractable chronic migraine without aura and without status migrainosus Chronic migraine without aura, with intractable migraine, so stated, without mention of status migrainosus Adrenal insufficiency (HCC) Glucocorticoid deficiency POTS (postural orthostatic tachycardia syndrome) Tachycardia, unspecified Sleep apnea, unspecified type Hypothyroidism, unspecified type Pre-op evaluation- Primary Preoperative examination, unspecified Trigeminal neuralgia POTS (postural orthostatic tachycardia syndrome) Tachycardia, unspecified Sleep apnea, unspecified type Hypothyroidism, unspecified type Adrenal insufficiency (HCC) Glucocorticoid deficiency Dyslipidemia Other and unspecified hyperlipidemia Pre-op evaluation- Primary Preoperative examination, unspecified POTS (postural orthostatic tachycardia syndrome) Tachycardia, unspecified Adrenal insufficiency (HCC) Glucocorticoid deficiency Hypothyroidism, unspecified type Dyslipidemia Other and unspecified hyperlipidemia Primary narcolepsy with cataplexy (HCC) History of diverticulitis Trigeminal neuralgia Narcolepsy and cataplexy (HCC)- Primary Narcolepsy with cataplexy Long-term current use of stimulant documented in this encounter [facility] note* Diagnosis Preop examination- Primary Preoperative examination, unspecified Discontinuity of ear ossicles, right Conductive hearing loss, bilateral Trigeminal neuralgia Intractable chronic migraine without aura and without status migrainosus Chronic migraine without aura, with intractable migraine, so stated, without mention of status migrainosus Adrenal insufficiency (HCC) Glucocorticoid deficiency POTS (postural orthostatic tachycardia syndrome) Tachycardia, unspecified Sleep apnea, unspecified type Hypothyroidism, unspecified type Pre-op evaluation- Primary Preoperative examination, unspecified Trigeminal neuralgia POTS (postural orthostatic tachycardia syndrome) Tachycardia, unspecified Sleep apnea, unspecified type Hypothyroidism, unspecified type Adrenal insufficiency (HCC) Glucocorticoid deficiency Dyslipidemia Other and unspecified hyperlipidemia Pre-op evaluation- Primary Preoperative examination, unspecified POTS (postural orthostatic tachycardia syndrome) Tachycardia, unspecified Adrenal insufficiency (HCC) Glucocorticoid deficiency Hypothyroidism, unspecified type Dyslipidemia Other and unspecified hyperlipidemia Primary narcolepsy with cataplexy (HCC) History of diverticulitis Trigeminal neuralgia Chronic migraine without aura, with intractable migraine, so stated, with status migrainosus- Primary [facility] [place] [facility]* Diagnosis Fibromyalgia Unspecified myalgia and myositis Small fiber neuropathy Muscle spasm Spasm of muscle [facility] Diagnosis Fibromyalgia Unspecified myalgia and myositis Trigeminal neuralgia [facility]* Diagnosis Fibromyalgia- Primary Unspecified myalgia and myositis Trigeminal neuralgia documented [facility] on filedocumented in this encounter [facility] filedocumented in this [facility] filedocumented in this encounter [facility] filedocumented in this [facility] filedocumented in this encounter [facility] filedocumented in this [facility] filedocumented in this [facility] filedocumented in this [facility] on filedocumented in this [facility] filedocumented in this encounter [facility] on filedocumented in this encounter [facility] on filedocumented in this encounter [facility] on filedocumented in this encounter [facility] on filedocumented [facility] Attachments The following attachments cannot be sent through Care Everywhere. * Fibromyalgia ([place]ym[place]) [facility] (n[facility]ative)* Outpatient Procedure (Routine) - Pending ReviewSpecialtyDiagnoses / ProceduresReferred By ContactReferred To [facility] Diagnoses TOS (thoracic outlet syndrome) Procedures PVR THORACIC OUTLET [facility] NON-INVASIVE PHYSIOLOGIC STUDY EXTREMITY 3 Yee Geiger MD, PhD [address] [place] [address] [place] [address] Referral IDStatusReasonStart DateExpiration DateVisits RequestedVisits [id number] Review Auto-Generated Referral / [facility] (narrative)No reason for referral information [facility]Bu[facility] Work Phone: Reason for visit Narrative* Outpatient Procedure (Routine) - ClosedSpecialtyDiagnoses / ProceduresReferred By ContactReferred To [facility] Diagnoses Narcolepsy and cataplexy (HCC) Long-term current use of stimulant Procedures ECG COMPLETE ECG ROUTINE ECG W/LEAST 12 LDS W/I&R Dariana Stockton, SAP PAYROLL CONSULTANT.LEAD FABRICATOR [address] [address] Phone: tel: fax: [place] [address] Referral IDStatusReasonStbarlow DateExpiration DateVisits RequestedVisits [id number] Auto-Generated Referral [facility] Summary Purpose Family History No Family History Records FoundNo Family History Records FoundNo Family History Records FoundNo Family History Records FoundNo Family History Records FoundNo Family History Records FoundNo Family History Records FoundNo Family History Records FoundNo Family History Records FoundNo Family History Records FoundNo Family History Records FoundNo Family History Records FoundNo Family History Records FoundNo Family History Records Found Advance Directives TypeDate RecordedPatient RepresentativeExplanationAdvance Directives and Living WillPower of AttorneyCode StatusDate ActivatedDate InactivatedCommentsFull Code 07/20/2017 9:03 PM07/24/2017 8:15 PMTypeDate RecordedPatient Wash Oil Cooler Operator ExplanationAdvance Directive(s)05/18/2019 1:46 PMAdvance Directive(s)08/18/2018 10:14 AM Advance Directive Response Recorded Date/ Time Advance Directives No July 3:04pm Advance Directive Response Recorded Date/ Time Advance Directives No July 4:04pm Date ActivatedDate InactivatedComments02/02/2017 3:46 PM02/04/2017 9:38 PMDate ActivatedDate InactivatedComments02/02/2017 3:46 PM02/04/2017 9:38 PM Reason for Referral SpecialtyDiagnoses / ProceduresReferred By ContactReferred To Contact Diagnoses Primary hypersomnia Drew Castellanos MD [address], [place] [id number] Referral IDStatusReasonStart DateExpiration DateVisits RequestedVisits [id number] Hstoqt69KwgtsoyntWbggboozp / ProceduresReferred By ContactReferred To ContactCT IMAGING Diagnoses Cholesteatoma, unspecified laterality Conductive hearing loss, bilateral Tinnitus of both ears Procedures CT TEMP BONES WO IVCON CT SCAN SKULL Siena Wu PA-C [address] [place] [address] Ct Imaging Referral IDStatusReasonPompan[place] DateExpiration DateVisits RequestedVisits [id number] Auto-Generated Referral /[id number] / ProceduresReferred By ContactReferred To Contact Diagnoses Narcolepsy with cataplexy Long-term current use of stimulant Procedures PROVIDER ORDERED FOLLOW UP OFFICE/OUTPATIENT NEW HIGH MDM 60-74 MINUTES Dariana Stockton, SAP PAYROLL CONSULTANT.LEAD FABRICATOR [address] [place] [address] Referral IDStatusReasonStart DateExpiration DateVisits RequestedVisits [id number] Review PCP Requested Referral [id number] / ProceduresReferred By ContactReferred To [facility] Diagnoses Narcolepsy with cataplexy Long-term current use of stimulant Procedures ECG COMPLETE ECG ROUTINE ECG W/LEAST 12 LDS W/I&R Dariana Stockton, SAP PAYROLL CONSULTANT.LEAD FABRICATOR [address] [place] [address] [facility] [address] [place] [address] Referral IDStatusReasonStart DateExpiration DateVisits RequestedVisits [id number] Review Auto-Generated Referral [id number] / ProceduresReferred By ContactReferred To Contact Diagnoses Narcolepsy without cataplexy Dairana Stockton, SAP PAYROLL CONSULTANT.LEAD FABRICATOR [address] [place] [address] Referral IDStatusReasonStart DateExpiration DateVisits RequestedVisits [id number] IDStatusReasonStart DateExpiration DateVisits RequestedVisits [id number] [id number] IDStatus ReasonStart DateExpiration DateVisits RequestedVisits [id number] Mkamyb39RahwtzjwlWykcpoxfo / ProceduresReferred By ContactReferred To Contact Diagnoses Narcolepsy without cataplexy Rosana Florence APRN.LEAD FABRICATOR [address] [place] [address] Referral IDStatusReasonStart DateExpiration DateVisits RequestedVisits [id number] IDStatusReasonStart DateExpiration DateVisits RequestedVisits [id number] [id number] IDStatusReasonStart DateExpiration DateVisits RequestedVisits [id number] Referral IDStatusReasonStart DateExpiration DateVisits RequestedVisits [id number] Chief Complaint and Reason for Visit Chief Complaint E27.1 Chief Complaint Abdominal Pain Chief Complaint E78.5 M21.372 G57.32 Chief Complaint Admit Date patient has orders December 03, 2024 2 :37pm Chief Complaint Admit Date patient has orders December 03, 2024 2 :37pm R05.3 December 15, 2024 7 :38am Chief Complaint Admit Date patient has orders December 03, 2024 2 :37pm R05.3 December 15, 2024 7 :38am R53.82 E83.51 December 21, 2024 1 2:53pm Chief Complaint Admit Date patient has orders December 03, 2024 2 :37pm R05.3 December 15, 2024 7 :38am R53.82 E83.51 December 21, 2024 1 2:53pm D35.2 January 04, 2025 11:41am Chief Complaint Admit Date patient has orders December 03, 2024 2 :37pm R05.3 December 15, 2024 7 :38am R53.82 E83.51 December 21, 2024 1 2:53pm D35.2 January 04, 2025 11:41am R06.9 R53.83 R07.89 January 22, 2025 1:08 pm Chief Complaint Admit Date patient has orders December 03, 2024 2 :37pm R05.3 December 15, 2024 7 :38am R53.82 E83.51 December 21, 2024 1 2:53pm D35.2 January 04, 2025 11:41am R06.9 R53.83 R07.89 January 22, 2025 1:08 pm R07.89 February 10, 2025 9:0 4am Chief Complaint Admit Date M79.7 M54.12 M54.41 M54.42 G89.29 May 202024 9:22pm Chief Complaint Admit Date M79.7 M54.12 M54.41 M54.42 G89.29 May 202024 9:22pm K76.9 K76.0 June 03, 2025 11:4 0am Medications Administered Section Medication OrderMAR ActionAction DateDoseRateSite onabotulinum toxin type A 200 Units injection (BOTOX) 200 Units, INTRAMUSCULAR, ONCE, 1 dose, On Sat07/23/23 at 1400, This record documents the total doseprovided to patient. See progress note for specific locations and amounts administered. Given07/23/2023 2:00 PM [id number] UnitsOther Additional Source Comments INFORMATION SOURCE (unrecogn ized section and content) DATE CREATED AUTHOR 05/07/2018 [facility] DATE CREATED AUTHOR AUTHOR'S ORGANIZ ATION 05/14/[address] [facility] DATE CREATED AUTHOR AUTHOR'S ORGANIZ ATION 09/14/2019 [facility] DATE CREATED AUTHOR AUTHOR'S ORGANIZ ATION 09/11/2022 [facility] [employer] Machine [employer] DATE CREATED AUTHOR AUTHOR'S ORGANIZ ATION 04/26/2023 [facility] DATE CREATED AUTHOR AUTHOR'S ORGANIZ ATION 06/04/2024 [facility] DATE CREATED AUTHOR AUTHOR'S ORGANIZ ATION 08/06/2024 [facility] DATE CREATED AUTHOR AUTHOR'S ORGANIZ ATION 01/22/2025 [facility] DATE CREATED AUTHOR AUTHOR'S ORGANIZ ATION 02/22/2025 [facility] DATE CREATED AUTHOR AUTHOR'S ORGANIZ ATION 06/12/2025 [facility] DATE CREATED AUTHOR AUTHOR'S ORGANIZ ATION 07/07/2025 [facility] DATE CREATED AUTHOR AUTHOR'S ORGANIZ ATION 07/13/2025 [facility] DATE CREATED AUTHOR AUTHOR'S ORGANIZ ATION 07/28/2025 [facility] DATE CREATED AUTHOR AUTHOR'S ORGANIZ ATION 08/31/2025 [facility] Source Comments (unrecognize d section and content) In the event this informatio n is protected by the Federal Confidentiality of Alcohol and Drug Abuse Patient Records regulations: The Federal rules restrict any use of the information to criminally investigate or prosecute any alcohol or drug abuse patient.[facility] the event this information is protected by the Federal Confidentiality of Alcohol and Drug Abuse Patient Records regulations: The Federal rules restrict any use of the information to criminally investigate or prosecute any alcohol or drug abuse patient.[facility] ClinicIn the event this information is protected by the Federal Confidentiality of Alcohol and Drug Abuse Patient Records regulations: The Federal rules restrict any use of the information to criminally investigate or prosecute any alcohol or drug abuse patient.[facility] ClinicIn the event this information is protected by the Federal Confidentiality of Alcohol and Drug Abuse Patient Records regulations: The Federal rules restrict any use of the information to criminally investigate or prosecute any alcohol or drug abuse patient.[facility] ClinicIn the event this information is protected by the Federal Confidentiality of Alcohol and Drug Abuse Patient Records regulations: The Federal rules restrict any use of the information to criminally investigate or prosecute any alcohol or drug abuse patient.[facility] ClinicIn the event this information is protected by the Federal Confidentiality of Alcohol and Drug Abuse Patient Records regulations: The Federal rules restrict any use of the information to criminally investigate or prosecute any alcohol or drug abuse patient.[facility] ClinicIn the event this information is protected by the Federal Confidentiality of Alcohol and Drug Abuse Patient Records regulations: The Federal rules restrict any use of the information to criminally investigate or prosecute any alcohol or drug abuse patient.[facility] ClinicIn the event this information is protected by the Federal Confidentiality of Alcohol and Drug Abuse Patient Records regulations: The Federal rules restrict any use of the information to criminally investigate or prosecute any alcohol or drug abuse patient.[facility] ClinicIn the event this information is protected by the Federal Confidentiality of Alcohol and Drug Abuse Patient Records regulations: The Federal rules restrict any use of the information to criminally investigate or prosecute any alcohol or drug abuse patient.[facility] ClinicIn the event this information is protected by the Federal Confidentiality of Alcohol and Drug Abuse Patient Records regulations: The Federal rules restrict any use of the information to criminally investigate or prosecute any alcohol or drug abuse patient.[facility] ClinicIn the event this information is protected by the Federal Confidentiality of Alcohol and Drug Abuse Patient Records regulations: The Federal rules restrict any use of the information to criminally investigate or prosecute any alcohol or drug abuse patient.[facility] ClinicIn the event this information is protected by the Federal Confidentiality of Alcohol and Drug Abuse Patient Records regulations: The Federal rules restrict any use of the information to criminally investigate or prosecute any alcohol or drug abuse patient.[facility] ClinicIn the event this information is protected by the Federal Confidentiality of Alcohol and Drug Abuse Patient Records regulations: The Federal rules restrict any use of the information to criminally investigate or prosecute any alcohol or drug abuse patient.[facility] ClinicIn the event this information is protected by the Federal Confidentiality of Alcohol and Drug Abuse Patient Records regulations: The Federal rules restrict any use of the information to criminally investigate or prosecute any alcohol or drug abuse patient.[facility] ClinicIn the event this information is protected by the Federal Confidentiality of Alcohol and Drug Abuse Patient Records regulations: The Federal rules restrict any use of the information to criminally investigate or prosecute any alcohol or drug abuse patient.[facility] ClinicIn the event this information is protected by the Federal Confidentiality of Alcohol and Drug Abuse Patient Records regulations: The Federal rules restrict any use of the information to criminally investigate or prosecute any alcohol or drug abuse patient.[facility] ClinicIn the event this information is protected by the Federal Confidentiality of Alcohol and Drug Abuse Patient Records regulations: The Federal rules restrict any use of the information to criminally investigate or prosecute any alcohol or drug abuse patient.[facility] ClinicIn the event this information is protected by the Federal Confidentiality of Alcohol and Drug Abuse Patient Records regulations: The Federal rules restrict any use of the information to criminally investigate or prosecute any alcohol or drug abuse patient.[facility] ClinicIn the event this information is protected by the Federal Confidentiality of Alcohol and Drug Abuse Patient Records regulations: The Federal rules restrict any use of the information to criminally investigate or prosecute any alcohol or drug abuse patient.[facility] ClinicIn the event this information is protected by the Federal Confidentiality of Alcohol and Drug Abuse Patient Records regulations: The Federal rules restrict any use of the information to criminally investigate or prosecute any alcohol or drug abuse patient.[facility] ClinicIn the event this information is protected by the Federal Confidentiality of Alcohol and Drug Abuse Patient Records regulations: The Federal rules restrict any use of the information to criminally investigate or prosecute any alcohol or drug abuse patient.[facility] ClinicIn the event this information is protected by the Federal Confidentiality of Alcohol and Drug Abuse Patient Records regulations: The Federal rules restrict any use of the information to criminally investigate or prosecute any alcohol or drug abuse patient.[facility] ClinicIn the event this information is protected by the Federal Confidentiality of Alcohol and Drug Abuse Patient Records regulations: The Federal rules restrict any use of the information to criminally investigate or prosecute any alcohol or drug abuse patient.[facility] ClinicIn the event this information is protected by the Federal Confidentiality of Alcohol and Drug Abuse Patient Records regulations: The Federal rules restrict any use of the information to criminally investigate or prosecute any alcohol or drug abuse patient.[facility] ClinicIn the event this information is protected by the Federal Confidentiality of Alcohol and Drug Abuse Patient Records regulations: The Federal rules restrict any use of the information to criminally investigate or prosecute any alcohol or drug abuse patient.[facility] ClinicIn the event this information is protected by the Federal Confidentiality of Alcohol and Drug Abuse Patient Records regulations: The Federal rules restrict any use of the information to criminally investigate or prosecute any alcohol or drug abuse patient.[facility] ClinicIn the event this information is protected by the Federal Confidentiality of Alcohol and Drug Abuse Patient Records regulations: The Federal rules restrict any use of the information to criminally investigate or prosecute any alcohol or drug abuse patient.[facility] ClinicIn the event this information is protected by the Federal Confidentiality of Alcohol and Drug Abuse Patient Records regulations: The Federal rules restrict any use of the information to criminally investigate or prosecute any alcohol or drug abuse patient.[facility] ClinicIn the event this information is protected by the Federal Confidentiality of Alcohol and Drug Abuse Patient Records regulations: The Federal rules restrict any use of the information to criminally investigate or prosecute any alcohol or drug abuse patient.[facility] ClinicIn the event this information is protected by the Federal Confidentiality of Alcohol and Drug Abuse Patient Records regulations: The Federal rules restrict any use of the information to criminally investigate or prosecute any alcohol or drug abuse patient.[facility] ClinicIn the event this information is protected by the Federal Confidentiality of Alcohol and Drug Abuse Patient Records regulations: The Federal rules restrict any use of the information to criminally investigate or prosecute any alcohol or drug abuse patient.[facility] ClinicIn the event this information is protected by the Federal Confidentiality of Alcohol and Drug Abuse Patient Records regulations: The Federal rules restrict any use of the information to criminally investigate or prosecute any alcohol or drug abuse patient.[facility] ClinicIn the event this information is protected by the Federal Confidentiality of Alcohol and Drug Abuse Patient Records regulations: The Federal rules restrict any use of the information to criminally investigate or prosecute any alcohol or drug abuse patient.[facility] ClinicIn the event this information is protected by the Federal Confidentiality of Alcohol and Drug Abuse Patient Records regulations: The Federal rules restrict any use of the information to criminally investigate or prosecute any alcohol or drug abuse patient.[facility] ClinicIn the event this information is protected by the Federal Confidentiality of Alcohol and Drug Abuse Patient Records regulations: The Federal rules restrict any use of the information to criminally investigate or prosecute any alcohol or drug abuse patient.[facility] ClinicIn the event this information is protected by the Federal Confidentiality of Alcohol and Drug Abuse Patient Records regulations: The Federal rules restrict any use of the information to criminally investigate or prosecute any alcohol or drug abuse patient.[facility] the event this information is protected by the Federal Confidentiality of Alcohol and Drug Abuse Patient Records regulations: The Federal rules restrict any use of the information to criminally investigate or prosecute any alcohol or drug abuse patient.[facility] ClinicIn the event this information is protected by the Federal Confidentiality of Alcohol and Drug Abuse Patient Records regulations: The Federal rules restrict any use of the information to criminally investigate or prosecute any alcohol or drug abuse patient.[facility] ClinicIn the event this information is protected by the Federal Confidentiality of Alcohol and Drug Abuse Patient Records regulations: The Federal rules restrict any use of the information to criminally investigate or prosecute any alcohol or drug abuse patient.[facility]In the event this information is protected by the Federal Confidentiality of Alcohol and Drug Abuse Patient Records regulations: The Federal rules restrict any use of the information to criminally investigate or prosecute any alcohol or drug abuse patient.[facility]In the event this information is protected by the Federal Confidentiality of Alcohol and Drug Abuse Patient Records regulations: The Federal rules restrict any use of the information to criminally investigate or prosecute any alcohol or drug abuse patient.[facility] ClinicIn the event this information is protected by the Federal Confidentiality of Alcohol and Drug Abuse Patient Records regulations: The Federal rules restrict any use of the information to criminally investigate or prosecute any alcohol or drug abuse patient.[facility] ClinicIn the event this information is protected by the Federal Confidentiality of Alcohol and Drug Abuse Patient Records regulations: The Federal rules restrict any use of the information to criminally investigate or prosecute any alcohol or drug abuse patient.[facility] ClinicIn the event this information is protected by the Federal Confidentiality of Alcohol and Drug Abuse Patient Records regulations: The Federal rules restrict any use of the information to criminally investigate or prosecute any alcohol or drug abuse patient.[facility] ClinicIn the event this information is protected by the Federal Confidentiality of Alcohol and Drug Abuse Patient Records regulations: The Federal rules restrict any use of the information to criminally investigate or prosecute any alcohol or drug abuse patient.[facility] ClinicIn the event this information is protected by the Federal Confidentiality of Alcohol and Drug Abuse Patient Records regulations: The Federal rules restrict any use of the information to criminally investigate or prosecute any alcohol or drug abuse patient.[facility] ClinicIn the event this information is protected by the Federal Confidentiality of Alcohol and Drug Abuse Patient Records regulations: The Federal rules restrict any use of the information to criminally investigate or prosecute any alcohol or drug abuse patient.[facility] ClinicIn the event this information is protected by the Federal Confidentiality of Alcohol and Drug Abuse Patient Records regulations: The Federal rules restrict any use of the information to criminally investigate or prosecute any alcohol or drug abuse patient.[facility] ClinicIn the event this information is protected by the Federal Confidentiality of Alcohol and Drug Abuse Patient Records regulations: The Federal rules restrict any use of the information to criminally investigate or prosecute any alcohol or drug abuse patient.[facility] ClinicIn the event this information is protected by the Federal Confidentiality of Alcohol and Drug Abuse Patient Records regulations: The Federal rules restrict any use of the information to criminally investigate or prosecute any alcohol or drug abuse patient.[facility] ClinicIn the event this information is protected by the Federal Confidentiality of Alcohol and Drug Abuse Patient Records regulations: The Federal rules restrict any use of the information to criminally investigate or prosecute any alcohol or drug abuse patient.[facility] ClinicIn the event this information is protected by the Federal Confidentiality of Alcohol and Drug Abuse Patient Records regulations: The Federal rules restrict any use of the information to criminally investigate or prosecute any alcohol or drug abuse patient.[facility] ClinicIn the event this information is protected by the Federal Confidentiality of Alcohol and Drug Abuse Patient Records regulations: The Federal rules restrict any use of the information to criminally investigate or prosecute any alcohol or drug abuse patient.[facility] ClinicIn the event this information is protected by the Federal Confidentiality of Alcohol and Drug Abuse Patient Records regulations: The Federal rules restrict any use of the information to criminally investigate or prosecute any alcohol or drug abuse patient.[facility] ClinicIn the event this information is protected by the Federal Confidentiality of Alcohol and Drug Abuse Patient Records regulations: The Federal rules restrict any use of the information to criminally investigate or prosecute any alcohol or drug abuse patient.[facility] ClinicIn the event this information is protected by the Federal Confidentiality of Alcohol and Drug Abuse Patient Records regulations: The Federal rules restrict any use of the information to criminally investigate or prosecute any alcohol or drug abuse patient.[facility] ClinicIn the event this information is protected by the Federal Confidentiality of Alcohol and Drug Abuse Patient Records regulations: The Federal rules restrict any use of the information to criminally investigate or prosecute any alcohol or drug abuse patient.[facility] ClinicIn the event this information is protected by the Federal Confidentiality of Alcohol and Drug Abuse Patient Records regulations: The Federal rules restrict any use of the information to criminally investigate or prosecute any alcohol or drug abuse patient.[facility] ClinicIn the event this information is protected by the Federal Confidentiality of Alcohol and Drug Abuse Patient Records regulations: The Federal rules restrict any use of the information to criminally investigate or prosecute any alcohol or drug abuse patient.[facility] ClinicIn the event this information is protected by the Federal Confidentiality of Alcohol and Drug Abuse Patient Records regulations: The Federal rules restrict any use of the information to criminally investigate or prosecute any alcohol or drug abuse patient.[facility] ClinicIn the event this information is protected by the Federal Confidentiality of Alcohol and Drug Abuse Patient Records regulations: The Federal rules restrict any use of the information to criminally investigate or prosecute any alcohol or drug abuse patient.[facility] ClinicIn the event this information is protected by the Federal Confidentiality of Alcohol and Drug Abuse Patient Records regulations: The Federal rules restrict any use of the information to criminally investigate or prosecute any alcohol or drug abuse patient.[facility] ClinicIn the event this information is protected by the Federal Confidentiality of Alcohol and Drug Abuse Patient Records regulations: The Federal rules restrict any use of the information to criminally investigate or prosecute any alcohol or drug abuse patient.[facility] ClinicIn the event this information is protected by the Federal Confidentiality of Alcohol and Drug Abuse Patient Records regulations: The Federal rules restrict any use of the information to criminally investigate or prosecute any alcohol or drug abuse patient.[facility] ClinicIn the event this information is protected by the Federal Confidentiality of Alcohol and Drug Abuse Patient Records regulations: The Federal rules restrict any use of the information to criminally investigate or prosecute any alcohol or drug abuse patient.[facility] ClinicIn the event this information is protected by the Federal Confidentiality of Alcohol and Drug Abuse Patient Records regulations: The Federal rules restrict any use of the information to criminally investigate or prosecute any alcohol or drug abuse patient.[facility] ClinicIn the event this information is protected by the Federal Confidentiality of Alcohol and Drug Abuse Patient Records regulations: The Federal rules restrict any use of the information to criminally investigate or prosecute any alcohol or drug abuse patient.[facility] ClinicIn the event this information is protected by the Federal Confidentiality of Alcohol and Drug Abuse Patient Records regulations: The Federal rules restrict any use of the information to criminally investigate or prosecute any alcohol or drug abuse patient.[facility] ClinicIn the event this information is protected by the Federal Confidentiality of Alcohol and Drug Abuse Patient Records regulations: The Federal rules restrict any use of the information to criminally investigate or prosecute any alcohol or drug abuse patient.[facility] ClinicIn the event this information is protected by the Federal Confidentiality of Alcohol and Drug Abuse Patient Records regulations: The Federal rules restrict any use of the information to criminally investigate or prosecute any alcohol or drug abuse patient.[facility] ClinicIn the event this information is protected by the Federal Confidentiality of Alcohol and Drug Abuse Patient Records regulations: The Federal rules restrict any use of the information to criminally investigate or prosecute any alcohol or drug abuse patient.[facility] ClinicIn the event this information is protected by the Federal Confidentiality of Alcohol and Drug Abuse Patient Records regulations: The Federal rules restrict any use of the information to criminally investigate or prosecute any alcohol or drug abuse patient.[facility] ClinicIn the event this information is protected by the Federal Confidentiality of Alcohol and Drug Abuse Patient Records regulations: The Federal rules restrict any use of the information to criminally investigate or prosecute any alcohol or drug abuse patient.[facility] ClinicIn the event this information is protected by the Federal Confidentiality of Alcohol and Drug Abuse Patient Records regulations: The Federal rules restrict any use of the information to criminally investigate or prosecute any alcohol or drug abuse patient.[facility] ClinicIn the event this information is protected by the Federal Confidentiality of Alcohol and Drug Abuse Patient Records regulations: The Federal rules restrict any use of the information to criminally investigate or prosecute any alcohol or drug abuse patient.[facility]In the event this information is protected by the Federal Confidentiality of Alcohol and Drug Abuse Patient Records regulations: The Federal rules restrict any use of the information to criminally investigate or prosecute any alcohol or drug abuse patient.[facility]In the event this information is protected by the Federal Confidentiality of Alcohol and Drug Abuse Patient Records regulations: The Federal rules restrict any use of the information to criminally investigate or prosecute any alcohol or drug abuse patient.[facility] ClinicIn the event this information is protected by the Federal Confidentiality of Alcohol and Drug Abuse Patient Records regulations: The Federal rules restrict any use of the information to criminally investigate or prosecute any alcohol or drug abuse patient.[facility]In the event this information is protected by the Federal Confidentiality of Alcohol and Drug Abuse Patient Records regulations: The Federal rules restrict any use of the information to criminally investigate or prosecute any alcohol or drug abuse patient.[facility]In the event this information is protected by the Federal Confidentiality of Alcohol and Drug Abuse Patient Records regulations: The Federal rules restrict any use of the information to criminally investigate or prosecute any alcohol or drug abuse patient.[facility]In the event this information is protected by the Federal Confidentiality of Alcohol and Drug Abuse Patient Records regulations: The Federal rules restrict any use of the information to criminally investigate or prosecute any alcohol or drug abuse patient.[facility] ClinicIn the event this information is protected by the Federal Confidentiality of Alcohol and Drug Abuse Patient Records regulations: The Federal rules restrict any use of the information to criminally investigate or prosecute any alcohol or drug abuse patient.[facility]In the event this information is protected by the Federal Confidentiality of Alcohol and Drug Abuse Patient Records regulations: The Federal rules restrict any use of the information to criminally investigate or prosecute any alcohol or drug abuse patient.[facility]In the event this information is protected by the Federal Confidentiality of Alcohol and Drug Abuse Patient Records regulations: The Federal rules restrict any use of the information to criminally investigate or prosecute any alcohol or drug abuse patient.[facility] ClinicIn the event this information is protected by the Federal Confidentiality of Alcohol and Drug Abuse Patient Records regulations: The Federal rules restrict any use of the information to criminally investigate or prosecute any alcohol or drug abuse patient.[facility] ClinicIn the event this information is protected by the Federal Confidentiality of Alcohol and Drug Abuse Patient Records regulations: The Federal rules restrict any use of the information to criminally investigate or prosecute any alcohol or drug abuse patient.[facility] the event this information is protected by the Federal Confidentiality of Alcohol and Drug Abuse Patient Records regulations: The Federal rules restrict any use of the information to criminally investigate or prosecute any alcohol or drug abuse patient.[facility]In the event this information is protected by the Federal Confidentiality of Alcohol and Drug Abuse Patient Records regulations: The Federal rules restrict any use of the information to criminally investigate or prosecute any alcohol or drug abuse patient.[facility]In the event this information is protected by the Federal Confidentiality of Alcohol and Drug Abuse Patient Records regulations: The Federal rules restrict any use of the information to criminally investigate or prosecute any alcohol or drug abuse patient.[facility]In the event this information is protected by the Federal Confidentiality of Alcohol and Drug Abuse Patient Records regulations: The Federal rules restrict any use of the information to criminally investigate or prosecute any alcohol or drug abuse patient.[facility]In the event this information is protected by the Federal Confidentiality of Alcohol and Drug Abuse Patient Records regulations: The Federal rules restrict any use of the information to criminally investigate or prosecute any alcohol or drug abuse patient.[facility]In the event this information is protected by the Federal Confidentiality of Alcohol and Drug Abuse Patient Records regulations: The Federal rules restrict any use of the information to criminally investigate or prosecute any alcohol or drug abuse patient.[facility] ClinicIn the event this information is protected by the Federal Confidentiality of Alcohol and Drug Abuse Patient Records regulations: The Federal rules restrict any use of the information to criminally investigate or prosecute any alcohol or drug abuse patient.[facility] Care Teams (unrecognized sec tion and content) Team Status: Active Member Role Status Dates David Mayfield , Primary Care Provider Active Team Status: Inactive Member Role Status Dates David Mayfield , Primary Care Provider Active London Dockery Jr, MDEmernational park medical center ProviderActiveTeam MemberRelationshipSpecialty Start DateEnd Date David Mayfield PCP - GeneralFamily Practice1818Team MemberRelationshipSpecialtyStart DateEnd Date David Mayfield PCP - GeneralFamily Practice18Team MemberRelationshipSpecialtyStart DateEnd Date David Mayfield PCP - GeneralFamily Practice18Team MemberRelationshipSpecialtyStart DateEnd Date David Mayfield PCP - GeneralFamily Practice18Team MemberRelationshipSpecialtyStart DateEnd Date David Mayfield PCP - GeneralFamily Practice18Team MemberRelationshipSpecialtyStart DateEnd Date David Mayfield PCP - GeneralFamily Practice18Team MemberRelationshipSpecialtyStart DateEnd Date David Mayfield PCP - GeneralFamily Medicine1818Team MemberRelationshipSpecialtyStart DateEnd Date David Mayfield PCP - GeneralFamily Medicine1818Team MemberRelationshipSpecialtyStart DateEnd Date David Mayfield PCP - GeneralFamily Medicine1818Team MemberRelationshipSpecialtyStart DateEnd Date David Mayfield PCP - GeneralFamily Medicine/1818Team MemberRelationshipSpecialtyStart DateEnd Date David Mayfield PCP - GeneralFamily Medicine/Team MemberRelationshipSpecialtyStart DateEnd Date David Mayfield PCP - GeneralFamily Medicine08/05/18Team MemberRelationshipSpecialtyStart DateEnd Date David Mayfield PCP - GeneralFamily Medicine08/05/18 Team Status: Inactive Member Role Status Dates David Mayfield , DO Primary Care Provider, Attending Pr ovider Active Aki Tyson DPMReferring ProviderActiveTeam MemberRelationshipSpecialty Start DateEnd Date David Mayfield PCP - GeneralFamily Medicine18Team MemberRelationshipSpecialtyStart DateEnd Date David Mayfield PCP - GeneralFamily Medicine08/05/18Team MemberRelationshipSpecialtyStart DateEnd Date David Mayfield PCP - GeneralFamily Medicine08/05/18Team MemberRelationshipSpecialtyStart DateEnd Date David Mayfield PCP - GeneralFamily Medicine1818Team MemberRelationshipSpecialtyStart DateEnd Date David Mayfield PCP - GeneralFamily Medicine08/05/18Team MemberRelationshipSpecialtyStart DateEnd Date David Mayfield PCP - GeneralFamily Medicine08/05/18 MarbellaChiquiAki H [address] [place] [address] ReferringPodiatry4/17/23Team MemberRelationshipSpecialtyStart DateEnd Date David Mayfield PCP - GeneralFamily Medicine08/05/18 Marbella, Aki H [address] [place] [address] ReferringPodiatry4/17/23Team MemberRelationshipSpecialtyStart DateEnd Date David Mayfield PCP - GeneralFamily Medicine08/05/18 Marbella, Aki H [address] [place] [address] ReferringPodiatry4/17/23Team MemberRelationshipSpecialtyStart DateEnd Date David Mayfield PCP - GeneralFamily Medicine08/05/18 MarbellaChiquiAki H [address] [place] [address] ReferringPodiatry4/17/23Team MemberRelationshipSpecialtyStart DateEnd Date David Mayfield PCP - GeneralFamily Medicine08/05/18Team MemberRelationshipSpecialtyStart DateEnd Date David Mayfield PCP - GeneralFamily Medicine08/05/18 Aki Peoples DPM ReferringPodiatry03/04/23Team MemberRelationshipSpecialtyStart DateEnd Date David Mayfield PCP - GeneralFamily Medicine08/05/18 Aki Peoples DPM ReferringPodiatry03/04/23 Team Status: Inactive Member Role Status Dates David Mayfield , DO Primary Care Provider Active Ela Eugene MDAtthugh [facility] ProviderActiveTeam MemberRelationshipSpecialty Start DateEnd Date David Mayfield PCP - GeneralFamily Medicine08/05/18 Aki Peoples DPM ReferringPodiatry03/04/23Team MemberRelationshipSpecialtyStart DateEnd Date David Mayfield PCP - GeneralFamily Medicine08/05/18 Aki Peoples DPM ReferringPodiatry4Team MemberRelationshipSpecialtyStart DateEnd Date David Mayfield PCP - GeneralFamily Medicine08/05/18 Aki Peoples DPM ReferringPodiatry4Team MemberRelationshipSpecialtyStart DateEnd Date David Mayfield PCP - GeneralFamily Medicine08/05/18 Aki Peoples DPM ReferringPodiatry4Team MemberRelationshipSpecialtyStart DateEnd Date David Mayfield PCP - GeneralFamily Medicine08/05/18 Aki Peoples DPM ReferringPodiatry4Team MemberRelationshipSpecialtyStart DateEnd Date David Mayfield PCP - GeneralFamily Medicine08/05/18 Aki Peoples DPM ReferringPodiatry4Team MemberRelationshipSpecialtyStart DateEnd Date David Mayifeld PCP - GeneralFamily Medicine08/05/18 Aki Peoples DPM ReferringPodiatry4 Team Status: Inactive Member Role Status Dates David Mayfield DO Primary Care Provider Active Start: October 29, 2023 End: October 29, 2023Brockrodríguez Ricenuha , MDAttending ProviderActiveStart: October 29, 2023 End: October 29, 2023 Team Status: Inactive Member Role Status Dates David Echeverria DO Chaparro Primary Care Provider Active Start: January 08, 2024 End: January 08assaHECTOR Khannatthaleigh ProviderActiveStart: January 08, 2024 End: January 08, 2024Team MemberRelationshipSpecialtyStart DateEnd Date David Mayfield PCP - GeneralFamily Medicine08/05/18 Aki Peoples DPM ReferringPodiatry03/04/23Team MemberRelationshipSpecialtyStart DateEnd Date David Mayfield PCP - GeneralFamily Medicine08/05/18 Aki Peoples DPM ReferringPodiatry03/04/23Team MemberRelationshipSpecialtyStart DateEnd Date David Mayfield PCP - GeneralFamily Medicine08/05/18 Aki Peoples DPM ReferringPodiatry03/04/23Team MemberRelationshipSpecialtyStart DateEnd Date David Mayfield PCP - GeneralFamily Medicine08/05/18 Aki Peoples DPM ReferringPodiatry03/04/23 Team Status: Inactive Member Role Status Dates David Mayfield DO Primary Care Provider Active Start: May 05, 2024 End: May 05, 2024Maanahy Sahra MIGDALIA Eugenettending ProviderActiveStart: May 05, 2024 End: May 05, 2024Team MemberRelationshipSpecialtyStart DateEnd Date David Mayfield PCP - GeneralFamily Medicine08/05/18 Aki Peoples DPM ReferringPodiatry03/04/23Team MemberRelationshipSpecialtyStart DateEnd Date David Mayfield PCP - GeneralFamily Medicine08/05/18 Aki Peoples DPM ReferringPodiatry03/04/23Team MemberRelationshipSpecialtyStart DateEnd Date David Mayfield PCP - GeneralFamily Medicine08/05/18 Aki Peoples DPM ReferringPodiatry4Team MemberRelationshipSpecialtyStart DateEnd Date David Mayfield PCP - GeneralFamily Medicine08/05/18 Aki Peoples DPM ReferringPodiatry4/17/23Team MemberRelationshipSpecialtyStart DateEnd Date David Mayfield PCP - GeneralFamily Medicine08/05/18 Aki Peoples DPM ReferringPodiatry4/17/23Team MemberRelationshipSpecialtyStart DateEnd Date David Mayfield PCP - GeneralFamily Medicine08/05/18 Aki Peoples DPM ReferringPodiatry4/17/23Team MemberRelationshipSpecialtyStart DateEnd Date David Mayfield PCP - GeneralFamily Medicine08/05/18 Aki Peoples DPM ReferringPodiatry4/17/23Team MemberRelationshipSpecialtyStart DateEnd Date David Mayfield PCP - GeneralFamily Medicine08/05/18 Aki Peoples DPM ReferringPodiatry4/17/23Team MemberRelationshipSpecialtyStart DateEnd Date David Mayfield PCP - GeneralFamily Medicine08/05/18 Aki Peoples DPM ReferringPodiatry4/17/23Team MemberRelationshipSpecialtyStart DateEnd Date David Mayfield PCP - GeneralFamily Medicine08/05/18 Aki Peoples DPM ReferringPodiatry4//Team MemberRelationshipSpecialtyStart DateEnd Date David Mayfield PCP - GeneralFamily Medicine08/05/18 Aki Peoples DPM ReferringPodiatry4/23Team MemberRelationshipSpecialtyStart DateEnd Date David Mayfield PCP - GeneralFamily Medicine08/05/18 Aki Peoples DPM ReferringPodiatry4/23Team MemberRelationshipSpecialtyStart DateEnd Date David Mayfield MD [address] [place] [phone] PCP - GeneralFamily Medicine06/11/23Team MemberRelationshipSpecialtyStart DateEnd Date David Mayfield DO PCP - GeneralFamily Medicine08/05/18 Aki Peoples DPM ReferringPodiatry/Team MemberRelationshipSpecialtyStart DateEnd Date David Mayfield DO PCP - GeneralFamily Medicine08/05/18 Aki Peoples DPM ReferringPodiatry4/Team MemberRelationshipSpecialtyStart DateEnd Date David Mayfield DO PCP - GeneralFamily Medicine08/05/18 Aki Peoples DPM ReferringPodiatry4/Team MemberRelationshipSpecialtyStart DateEnd Date David Mayfield MD [address] [place] [phone] PCP - GeneralFamily Medicine06/11/23Team MemberRelationshipSpecialtyStart DateEnd Date David Mayfield DO PCP - GeneralFamily Medicine08/05/18 Aki Peoples DPM ReferringPodiatry4/23Team MemberRelationshipSpecialtyStart DateEnd Date David Mayfield DO PCP - GeneralFamily Medicine08/05/18 Aki Peoples DPM ReferringPodiatry03/04/23Team MemberRelationshipSpecialtyStart DateEnd Date David Mayfield DO PCP - GeneralFamily Medicine08/05/18 Aki Peoples DPM ReferringPodiatry03/04/23Team MemberRelationshipSpecialtyStart DateEnd Date David Mayfield DO PCP - Generalmily Medicine08/05/18 Aki ePoples DPM ReferringPodiuofl health - peace hospitaly03/04/23Team MemberRelationshipSpecialtyStart DateEnd Date Jeff Patel APRN-[facility] [address] [place] [phone] PCP - GeneralNurse Glxyxpuiqpvf74/22/24Team MemberRelationshipSpecialtyStart DateEnd Date Jeff Patel APRN-LEAD F[employer]RICATOR [address] [place] [phone] PCP - GeneralNurse Qxmoptmewiaw30/22/24 Team Status: Active Member Role Status Dates Jeff Patel NP-C Primary Care Provider Active Team Status: Inactive Member Role Status Dates Jeff Patel NP-C Primary Care Provider Active Start: December 03, 2024 End: December 03, 2024Ela Eugene MDAtthaleigh ProviderActiveStart: December 03, 2024 End: December 03, 2024Team MemberRelationshipSpecialtyStart DateEnd Date Patel, Jeff, SAP PAYROLL CONSULTANT-LEAD FABRICATOR [address] [place] [phone] PCP - GeneralNurse Itcvinumbyzv36/22/24Team MemberRelationshipSpecialtyStart DateEnd Date Jeff Patel SAP PAYROLL CONSULTANT-LEAD FABRICATOR [address] [place] [phone] PCP - GeneralNurse Gezsvzzinjpc40/22/24 Team Status: Inactive Member Role Status Dates Jeff Patel BAND SHOVER-C Primary Care Provider Active Start: December 15, 2024 End: December 15, 2024MaVenessa Georgeending ProviderActiveStart: December 15, 2024 End: December 15, 2024Team MemberRelationshipSpecialtyStart DateEnd Date David Mayfield DO PCP - GeneralFamily Medicine08/05/18 Aki Peoples DPM ReferringPodiatry03/04/23 Team Status: Inactive Member Role Status Dates Jeff Patel NP-C Primary Care Provider Active Start: December 21, 2024 End: December 21, 2024MaAvinash Hartman ProviderActiveStart: December 21, 2024 End: December 21, 2024Team MemberRelationshipSpecialtyStart DateEnd Date David Mayfield DO PCP - GeneralFamily Medicine08/05/18 Aki Peoples DPM ReferringPodiatry03/04/23Team MemberRelationshipSpecialtyStart DateEnd Date David Mayfield DO PCP - GeneralFamily Medicine08/05/18 Aki Peoples DPM ReferringPodiatry03/04/23Team MemberRelationshipSpecialtyStart DateEnd Date David Mayfield DO PCP - GeneralFamily Medicine08/05/18 Aki Peoples DPM ReferringPodiuofl health - peace hospitaly03/04/23Team MemberRelationshipSpecialtyStart DateEnd Date Jeff Patel APRN-LE[employer] F[employer]RICATOR [address] [place] [phone] PCP - GeneralNSSM Rehab10/09/24 Team Status: Inactive Member Role Status Dates Jeff Patel BAND SHOVER-C Primary Care Provider Active Start: January 04, 2025 End: January 04, 2025Ela Eugene MDAtthaleigh ProviderActiveStart: January 04, 2025 End: January 04, 2025Team MemberRelationshipSpecialtyStart DateEnd Date David Mayfield DO PCP - GeneralFamily Medicine08/05/18 Aki Peoples DPM ReferringPodiuofl health - peace hospitaly03/04/23Team MemberRelationshipSpecialtyStart DateEnd Date Jeff Patel APRN-CNP [address] [place] [address], [facility] [address] PCP - GeneralNurse Dgtiikirwkhe95/22/24Team MemberRelationshipSpecialtyStart DateEnd Date Jorge MAXINE Cantu-LEAD FABRICATOR [address] [place] [address], [place] [address] PCP - GeneralNurse Cygtawrrlfqv39/22/24Team MemberRelationshipSpecialtyStart DateEnd Date Jeff Patel APRN-LE[employer] F[employer]RICATOR [address] [place] [address], [place] [address] PCP - GeneralNurse Xrhkfkuihfaj98/22/24Team MemberRelationshipSpecialtyStart DateEnd Date David Mayfield DO PCP - GeneralFamily Medicine08/05/18 Aki Peoples DPM ReferringPodiatry03/04/23 Team Status: Inactive Member Role Status Dates Jeff Patel NP-C Primary Care Provider Active Start: January 22, 2025 End: January 22, 2025Yamila Matta NP-CAttending ProviderActiveStart: January 22, 2025 End: January 22, 2025Team MemberRelationshipSpecialtyStart DateEnd Date David Mayfield DO PCP - GeneralFamily Medicine08/05/18 Aki Peoples DPM ReferringPodiatry03/04/23Team MemberRelationshipSpecialtyStart DateEnd Date David Mayfield DO PCP - GeneralFamily Medicine08/05/18 Aki Peoples DPM ReferringPodila [facility]03/04/23Team MemberRelationshipSpecialtyStart DateEnd Date David Mayfield DO PCP - GeneralFamily Medicine08/05/18 Aki Peoples DPM ReferringPouniversity of [facility]03/04/23 Team Status: Inactive Member Role Status Dates Jeff Patel NP-C Primary Care Provider Active Start: February 10, 2025 End: February 10, 2025Yamila Matta NP-CAttending ProviderActiveStart: February 10, 2025 End: February 10, 2025MoLARISA Storyeferring ProviderActiveStart: February 10, 2025 End: February 10, 2025Team MemberRelationshipSpecialtyStart DateEnd Date David Mayfield DO PCP - GeneralFamily Medicine08/05/18 Aki Peoples DPM ReferringPouniversity of [facility]03/04/23Team MemberRelationshipSpecialtyStart DateEnd Date Jeff Patel APRN-LEAD FABRICATOR [address] [place] [phone] PCP - GeneralNurse Htzyctvfxrte64/22/24Team MemberRelationshipSpecialtyStart DateEnd Date David Mayfield DO PCP - GeneralFamily Medicine08/05/18 Aki Peoples DPM ReferringPodiatry03/04/23Team MemberRelationshipSpecialtyStart DateEnd Date Jeff Patel APRN-LEAD FABRICATOR [address] [place] [phone] PCP - GeneralNurse Yanldoqkdzon87/22/24Team MemberRelationshipSpecialtyStart DateEnd Date Jeff Patel APRN-LEAD FABRICATOR [address] [place] [phone] PCP - GeneralNurse Sibkitzhbbnl77/22/24 Team Status: Inactive Member Role Status Dates Jeff Patel NP-C Primary Care Provider Active Start: May 20, 2025 End: May 20lexbrenda Patel NP-CAttending ProviderActiveStart: May 20, 2025 End: May 20, 2025Team MemberRelationshipSpecialtyStart DateEnd Date Jeff Patel APRN-LEAD FABRICATOR [address] [place] [phone] PCP - GeneralNurse Aldkyrwyftdo51/22/24Team MemberRelationshipSpecialtyStart DateEnd Date Jeff Patel APRN-LEAD FABRICATOR [address] [place] [phone] PCP - GeneralNurse Seeosptkhbbm52/22/24 Team Status: Inactive Member Role Status Dates Jeff Patel BAND SHOVER-C Primary Care Provider Active Start: June 03, 2025 End: June 03deng Patel BAND SHOVER-CAttending ProviderActiveStart: June 03, 2025 End: June 03, 2025Team MemberRelationshipSpecialtyStart DateEnd Date David Mayfield DO PCP - GeneralFamily Medicine08/05/18 Aki Peoples DPM ReferringPodiatry03/04/23Team MemberRelationshipSpecialtyStart DateEnd Date Jeff Patel APRN-LEAD FABRICATOR [address] [place] [phone] PCP - GeneralNurse Lvqderggyrmc19/22/24Team MemberRelationshipSpecialtyStart DateEnd Date Jeff Patel APRN-LEAD FABRICATOR [address] [place] [phone] PCP - GeneralNurse Ddinxeuirvsg37/22/24Team MemberRelationshipSpecialtyStart DateEnd Date Jeff Patel APRN-LEAD FABRICATOR [address] [place] [phone] PCP - GeneralNurse Akpztjffpwtv89/22/24Team MemberRelationshipSpecialtyStart DateEnd Date Jeff Patel APRN-LEAD FABRICATOR [address] [place] [phone] PCP - GeneralNurse Sphlakuhpoel21/22/24Team MemberRelationshipSpecialtyStart DateEnd Date Jeff Patel CNP [address] [place] [phone] PCP - GeneralFamily Medicine07/12/25 Aki Peoples DPM ReferringPodiatry03/04/23Team MemberRelationshipSpecialtyStart DateEnd Date Jeff Patel CNP [facility] [place] [phone] PCP - GeneralFamily Medicine07/12/25 Aki Peoples DPM ReferringPodiatry03/04/23Team MemberRelationshipSpecialtyStart DateEnd Date Jeff Patel CNP [address] [place] [phone] PCP - GeneralFamily Medicine07/12/25 Aki Peoples DPM ReferringPodiatry03/04/23Team MemberRelationshipSpecialtyStart DateEnd Date David Mayfield DO PCP - GeneralFamily Medicine Jeff Patel CNP [address] [place] [phone] PCP - GeneralFamily Medicine07/12/25 Aki Peoples DPM ReferringPodiatry03/04/23Team MemberRelationshipSpecialtyStart DateEnd Date Patel Jeff, SAP PAYROLL CONSULTANT-LEAD FABRICATOR [address] [place], [place] [phone] PCP - GeneralNurse Hxbpdbdkeaqy23/22/24 Reason for Visit (unrecogniz ed section and content) ReasonCommentsEstablished PatientChronic MigraineBotox InjectionSpecialty Diagnoses / ProceduresReferred By ContactReferred To ContactHEADACHE Diagnoses Chronic migraine without aura, intractable, without status migrainosus Procedures BOTULINUM TOXIN A PER 1 UNIT CHEMODERVATE FACIAL/TRIGEM/CERV MUSC MIGRAINE Renewal due 05/22/2023 Botox 200 units every 12 weeks for 1 year through [facility] buy and bill Preempt protocol J0585 Procedure -62183 chemodervate facial/trigem/cerv musc migraine Palomo Davalos MD [address] [place] [address] Neur Headache Main [address] [phone] Referral IDStatusReasonStart DateExpiration DateVisits RequestedVisits [id number]/1/20231/232615XbhklmWybisflbFriqjvvk Request ReasonCommentsEstablished PatientFollow UpChronic MigraineBotox Injection SpecialtyDiagnoses / ProceduresReferred By ContactReferred To ContactHEADACHE Diagnoses Chronic migraine without aura, intractable, without status migrainosus Procedures BOTULINUM TOXIN A PER 1 UNIT CHEMODERVATE FACIAL/TRIGEM/CERV MUSC MIGRAINE Botox renewal due 01/26/22 200 units every 90 days x 1 year preempt protocol J0585 buy and bill procedure 26402 APPROVED FOR 155 UNITS ONLY EVERY 12 WEEK FOR A YEAR Palomo Davalos MD [address] [phone] Neur Headache Main [address] [place] [address] Referral IDStatusReasonStart DateExpiration DateVisits RequestedVisits [id number]/11/20224/[id number] DateCommentsRefill Jqeiqsr60/20/2022ReasonCommentsEstablished PatientReasonOnset DateCommentsRefill Imetpja42/03/2022ReasonCommentsMedication ProblemCare Coordinator - OtherReason CommentsMedication Dosage AdjustmentPer pharmacyReasonCommentsFollow UpReason CommentsInsurance AuthorizationPA sent and approved for WakixAroval Letter for WakixReasonCommentsRefill RequestReasonCommentsInsurance AuthorizationReason CommentsReferral RequestNEW INSURANCEReasonCommentsInsurance AuthorizationNew insurance PA initiated for XywavSpecialtyDiagnoses / ProceduresReferred By ContactReferred To ContactNeurology / HEADACHE Diagnoses Chronic migraine without aura, intractable, without status migrainosus Botox - new insurance pending 11/21 SP Procedures BOTULINUM TOXIN A PER 1 UNIT CHEMODERVATE FACIAL/TRIGEM/CERV MUSC MIGRAINE Continuation request due now 11/21/22 - new insurance Botox 200 units every 12 weeks x 1 year preempt protocol J0585 buy and bill procedure 42597 Palomo Davalos MD [address] [facility] [address] Palomo Davalos MD [address] [place] [address] Referral IDStatusReasonStart DateExpiration DateVisits RequestedVisits [id number]/30/20237/181905BwlmxxEwpisicvZciochnqn AuthorizationPA submitted for XywavReasonCommentsExcessive Daytime Sleepiness Established PatientMedication Follow-upRx RefillsReasonCommentsNew PatientReason CommentsReceived Outside Medical RecordsProvidence HospitalReason CommentsPatient QuestionReasonCommentsFollow UpEstablished PatientReasonOnset DateCommentsRefill Ketedcq2503/12/2023ReasonCommentsBotox InjectionReasonComments Medication ProblemReferral IDStatusReasonStart DateExpiration DateVisits RequestedVisits [id number]/30/20237/489869IvdtehVjknvudr Radiology CTSpecialtyDiagnoses / ProceduresReferred By ContactReferred To ContactCT IMAGING Diagnoses Cholesteatoma, unspecified laterality Conductive hearing loss, bilateral Tinnitus of both ears Procedures CT TEMP BONES WO IVCON CT SCAN SKULL Siena Wu PA-C [address] [place] [address] Ct Imaging Referral IDStatusReasonStart DateExpiration DateVisits RequestedVisits [id number] Auto-Generated Referral /200944EsgdnvLelahkzcObgqowlqsy with CataplexyEstablished Patient Medication Follow-upRx RefillsReasonCommentsHeadacheBotox InjectionReferral ID StatusReasonStart DateExpiration DateVisits RequestedVisits [id number] Authorized/[id number] PatienthemorrhoidsReasonComments narcolepsy with cataplexyReasonOnset LghfGobzgjmeOHF55/12/2024SpecialtyDiagnoses / ProceduresReferred By ContactReferred To ContactNEUROLOGICAL INSTITUTE Diagnoses Left foot drop Procedures EMG(NEURO/NI) NERVE CONDUCTION STUDIES 9-10 STUDIES Francis Garcia MD [address] [place] [address] [facility] [address] [place] [address] Referral IDStatusReasonStart DateExpiration DateVisits RequestedVisits [id number] Auto-Generated Referral 1ReasonCommentsf/u on left footReasonCommentsMedication Follow-upRx RefillsThe patient is here for follow up on her Medication. She Is on Vyvanse and she takes Xywav and bothof these medications are working well SpecialtyDiagnoses / ProceduresReferred By ContactReferred To Contact Diagnoses Narcolepsy with cataplexy Long-term current use of stimulant Procedures PROVIDER ORDERED FOLLOW UP OFFICE/OUTPATIENT [facility] 60-74 MINUTES Dariana Stockton, MAXINE.[facility] [address] [place] [address] Referral IDStatusReasonStart DateExpiration DateVisits RequestedVisits [id number] PCP Requested Referral [id number] Type IReasonOnset DateComments Refill Uxewxnc80/25/2024ReasonCommentsCORS SurgeryReasonCommentsEstablished Patient Follow-UpHemorrhoidsReasonCommentsAnesthesia ConsultSpecialtyDiagnoses / ProceduresReferred By ContactReferred To Contact Diagnoses Hemorrhoids, unspecified hemorrhoid type Procedures INT [facility] TRANSANAL HROID DARTLZJ 2+ W/US GDN HEMORRHOIDECTOMY INTERNAL TRANSANAL HEMORRHOIDAL DEARTERIALIZATION, 2 OR MORE HEMORRHOID COLUMNS/GROUPS INCL ULTRASOUND GUIDANCE W/MUCOPEXY WHEN PERFORMED [facility] [address] [place] [address] Referral IDStatusReasonStart DateExpiration DateVisits RequestedVisits [id number]wplqw - had repaired 2017right inguinal - couple monthsReasonCommentsNarcolepsy with cataplexyReasonComments Pre-Op VisitReasonCommentsPatient UpdateReasonCommentsAbdominal BulgeReason CommentsRashReasonCommentsPost OpRight inguinal hernia DOS 07/30/24Little tender to touchReferral IDStatusReasonStart DateExpiration DateVisits RequestedVisits [id number]/1/20231/607574LwtvjxSvoddkvkEcvgktuvvdk ExamReason CommentsEstablished PatientMedication Follow-upRx RefillsNarcolepsy with CataplexySpecialtyDiagnoses / ProceduresReferred By ContactReferred To Contact HEADACHE Diagnoses Chronic migraine without aura, intractable, with status migrainosus botox renewal due 11/22/24 Botox 200 units every 12 weeks for 1 year through [facility] buy and bill Preempt protocol J0585 Procedure -68979 chemodervate facial/trigem/cerv musc migraine Procedures BOTULINUM TOXIN A PER 1 UNIT CHEMODERVATE FACIAL/TRIGEM/CERV MUSC MIGRAINE Palomo Davalos MD [address] [place] [address] Neur Headache Main [address] [place] [address] Referral IDStatusReasonStart DateExpiration DateVisits RequestedVisits [id number]/3/20252/3/953808RkztkkKqinqxovKncbamnmuth QuestionsReasonCommentsPatient QuestionBotoxReasonCommentsEstablish CareReason CommentsMedication Follow-upRx RefillsVyvance doing well Meiafia QuinterosuskyReason Onset DateCommentsMed Vlapom5501/15/2025ReasonCommentsEstablished PatientReason CommentsCoughReasonCommentsFollow-upFibromyalgiaSpecialtyDiagnoses / Procedures Referred By ContactReferred To ContactHEADACHE Diagnoses Chronic migraine without aura, intractable, with status migrainosus botox renewal due 11/22/24 Botox 200 units every 12 weeks for 1 year through [facility] and bill Preempt protocol J0585 Procedure -36012 chemodervate facial/trigem/cerv musc migraine Procedures BOTULINUM TOXIN A PER 1 UNIT CHEMODERVATE FACIAL/TRIGEM/CERV MUSC MIGRAINE Palomo Davalos MD [address] [place] [address] Phone: tel: fax: Neurology [address] [place] [address] Phone: tel: fax: ReasonCommentsMedicae Annual WellnessReasonOnset DateCommentsRefill Request 05/31/2025ReasonCommentsAbdominal PainRecent dx of acute uncomplicated diverticulitisReasonOnset QahhKzarmlvyIljuhfs96/22/2025ReasonCommentsMedication Follow-upReasonCommentsChronic MigraineBotox InjectionSpecialtyDiagnoses / ProceduresReferred By ContactReferred To ContactHEADACHE Diagnoses Chronic migraine without aura, intractable, with status migrainosus botox renewal due 11/22/24 Botox 200 units every 12 weeks for 1 year through [facility] buy and bill Preempt protocol J0585 Procedure -26775 chemodervate facial/trigem/cerv musc migraine Procedures BOTULINUM TOXIN A PER 1 UNIT CHEMODERVATE FACIAL/TRIGEM/CERV MUSC MIGRAINE Palomo Davalos MD [address] [place] [address] Phone: tel: fax: Neurology [address] [place] [address] Phone: tel: fax: ReasonCommentsMedication ProblemBotoxReasonCommentsMed RefillReasonOnset Date CommentsMed Xpvkuvvytz09/21/2025ReasonCommentsFollow-up Goals (unrecognized section and content) Goals may be documented in a n alternate sectionGoals may be documented in an alternate sectionGoals may be documented in an alternate sectionGoals may be documented in an alternate sectionGoals may be documented in an alternate sectionGoals may be documented in an alternate sectionNot on filedocumented as of this encounterNot on filedocumented as of this encounterGoals may be documented in an alternate sectionNot on filedocumented as of this encounterNot on filedocumented as of this encounterGoals may be documented in an alternate sectionGoals may be documented in an alternate sectionNot on filedocumented as of this encounterGoals may be documented in an alternate sectionNot on filedocumented as of this encounterNot on filedocumented as of this encounterNot on filedocumented as of this encounterGoals may be documented in an alternate sectionGoals may be documented in an alternate sectionNot on filedocumented as of this encounterNot on filedocumented as of this encounterNot on filedocumented as of this encounterGoals may be documented in an alternate sectionNot on filedocumented as of this encounterNot on filedocumented as of this encounterGoals may be documented in an alternate sectionNot on filedocumented as of this encounterNot on filedocumented as of this encounterNot on filedocumented as of this encounterNot on filedocumented as of this encounterNot on filedocumented as of this encounterNot on filedocumented as of this encounterNot on filedocumented as of this encounterNot on filedocumented as of this encounterNot on filedocumented as of this encounterNot on filedocumented as of this encounter Inactive Administered Medications - up to 3 most recent administrations Administered Medications (un recognized section and content) Medication OrderMAR ActionAction DateDoseRateSite onabotulinum toxin type A 200 Units injection (BOTOX) 200 Units, INTRAMUSCULAR, ONCE, 1 dose, On Sat12/30/23 at 0000, This record documents the total dose provided to patient. See progress note for specific locations and amounts administered. Given12/30/2023 11:17 AM [id number] UnitsOther Scheduled Active and Recently Administ ered Medications (unrecognized section and content) Medication Order/ promethazine 12.5 mg tab(s) (PHENERGAN) (COMPLETED) 12.5 mg, ORAL, PRE-OP ONCE, 1 dose, On Sat05/29/24 at 0800, Preprocedure * 0815 (Given - Provider: West Munoz RN) Medication Order// lactated ringers iv infusion (CANCELED) 30 mL/hr, INTRAVENOUS, CONTINUOUS, Starting on Sat05/29/24 at 0800, Until Sat05/29/24 at 0937, Preprocedure * 0800 (New Bag/Syringe/Bottle - Provider: West Munoz RN) * 0829 (Stopped - Provider: Jany Ziegler APRN.CRNA - Comment: Switch to gravity) * 0830 (Restarted - Provider: Jany Karlie, [employer] CONSULTANT.PLANT CHANGER) * 0911 (Anesthesia Volume Adjustment - Provider: Jany Ziegler APRN.CRNA) * 0937 (Due: Infusion Complete) Medication Order//10/2024 BUPivacaine (PF) 20 mL, BUPivacaine liposome (PF) 20 mL (CANCELED) X (OR/PROCEDURE) PRN, Starting on Sat05/29/24 at 0841, Until Sat05/29/24 at 0926, Intraprocedure * 0841 (Given - Provider: Ester Cali MD) FOR RECORDS PERTAINING TO PATIENTS WHO ARE OR HAVE BEEN ENROLLED IN A CHEMICAL DEPENDENCY/SUBSTANCEABUSE PROGRAM, SOME INFORMATION MAY BE OMITTED. This clinical summary was aggregated from multiple sources. Caution should be exercised in using it in the provision of clinical care. This summary normalizes information from multiple sources, and as a consequence, information in this document may materially change the coding, format and clinical context of patient data. In addition, data may be omitted in some cases. CLINICAL DECISIONS SHOULD BE BASED ON THE PRIMARY CLINICAL RECORDS. [employer] provides no warranty or guarantee of the accuracy or completeness of information in this document.
== END 2025-09-13 13:59 | disposition home or self-care (01) ==
LOC: MAMMO 13:59
PROVIDERS: PCP Nurse Practitioner Family; Visit Provider Specialist
DX: Z12.31 Encounter for screening mammogram for malignant neoplasm of breast (principal); Z80.7 Family history of other malignant neoplasms of lymphoid, hematopoietic and related tissues; Z80.8 Family history of malignant neoplasm of other organs or systems
CPT/HCPCS: 77063; 77067